=== PATIENT | female | born 1955 | race Hispanic/Latino ===

== ENCOUNTER 2020-10-14 12:56 | Inpatient (IN) | payer MEDICARE ==
[2020-10-14] MEDS ORDERED: LIP THERAPY VASELINE TP PRN (13:17)
[2020-10-14] MEDS ORDERED: MINERAL OIL/PETROLATUM, WHITE OPHTH OINT 3.5 GM OU PRN (13:17)
--- NOTE | 2020-10-14 13:17 | Emergency Department Report ---
HPI - General Time Seen by Provider: 10/14/20 12:58 - HPI HPI: This is a 65-year-old female presents to the emergency department by EMS from home after being found down on the ground, unresponsive, with some seizure-like activity. The patient's last known well time was around 5 AM when she spoke to her neighbor. The neighbor then went to check on her just prior to presentation and found her on the ground seizing. The patient was still seizing when EMS arrived. She was given 2 mg of Ativan and the seizing then stopped. The patient remained unresponsive. The patient apparently has a past medical history of a brain aneurysm with previous repair, hypertension. The patient presents with extremely elevated blood pressure. The patient does not appear to have been to this facility previously. ED Past Medical Hx - Medications Home Medications: Home Medications Medication Instructions Recorded Confirmed Last Taken Type Unobtainable 10/14/20 10/14/20 Unknown History ED Review of Systems ROS: Stated complaint: SEIZURE Other details as noted in HPI Comment: Unobtainable due to pts medical conditions Physical Exam - Physical Exam Physical Exam: GENERAL: Patient is ill-appearing and unresponsive. HENT: Normocephalic. Atraumatic. Patient has moist mucous membranes. EYES: Persistent horizontal nystagmus. Pupils are equal, round, but sluggish to respond to light. NECK: Supple. Trachea is midline. CHEST/LUNGS: Clear to auscultation. There is no respiratory distress noted. HEART/CARDIOVASCULAR: Regular. There is mild to moderate tachycardia. ABDOMEN: Abdomen is soft, nontender. Patient has normal bowel sounds. SKIN: Skin is warm and dry. NEURO: The patient is unresponsive to any verbal or painful stimuli. No gag reflex. MUSCULOSKELETAL: There is no obvious deformity. ED Course - Reevaluation(s) Reevaluation #1: 10/14/20 14:43 Lab Results 10/14/20 10/14/20 10/14/20 Range/Units 13:36 13:36 13:36 WBC 14.7 H (4.5-11.0) K/mm3 RBC 4.37 (3.65-5.03) M/mm3 Hgb 12.9 (10.1-14.3) gm/dl Hct 36.9 (30.3-42.9) % MCV 85 (79-97) fl MCH 29 (28-32) pg MCHC 35 H (30-34) % RDW 13.7 (13.2-15.2) % Plt Count 274 (140-440) K/mm3 Seg Neutrophils % [place] PT 14.0 (12.2-14.9) Sec. INR 1.07 (0.87-1.13) APTT 28.3 (24.2-36.6) Sec. Thrombin Time 17.5 (15.1-19.6) Sec. ABG pH (7.350-7.450) pH Units ABG pCO2 mm Hg ABG pO2 (80.0-90.0) mm Hg ABG HCO3 (20.0-26.0) mmol/L ABG O2 Saturation (95.0-99.0) % ABG O2 Content (0.0-44) ABG Base Excess (-2.0-3.0) mmol/L ABG Hemoglobin (12.0-16.0) gm/dl ABG Carboxyhemoglobin (0.0-5.0) % ABG Methemoglobin (0.0-1.5) % Oxyhemoglobin (95.0-99.0) % FiO2 % Sodium 131 L (137-145) mmol/L Potassium 3.8 (3.6-5.0) mmol/L Chloride 97.2 L (98-107) mmol/L Carbon Dioxide 23 (22-30) mmol/L Anion Gap 15 mmol/L BUN 13 (7-17) mg/dL Creatinine 0.9 (0.6-1.2) mg/dL Estimated GFR > 60 ml/min BUN/Creatinine Ratio 14 % Glucose 170 H (65-100) mg/dL Calcium 8.8 (8.4-10.2) mg/dL Total Bilirubin 0.40 (0.1-1.2) mg/dL AST 21 (5-40) units/L ALT 13 (7-56) units/L Alkaline Phosphatase 106 (35-129) units/L Ammonia (25-60) umol/L Total Creatine Kinase 107 (30-135) units/L CK-MB (CK-2) 3.9 (0.0-4.0) ng/mL CK-MB (CK-2) Rel Index 3.6 (0-4) Troponin T 0.015 (0.00-0.029) ng/mL Total Protein 7.3 (6.3-8.2) g/dL Albumin 3.9 (3.9-5) g/dL Albumin/Globulin Ratio 1.1 % Plasma/Serum Alcohol (0-0.07) % Antibody Screen 10/14/20 10/14/20 10/14/20 Range/Units 13:36 13:36 13:36 WBC (4.5-11.0) K/mm3 RBC (3.65-5.03) M/mm3 Hgb (10.1-14.3) gm/dl Hct (30.3-42.9) % MCV (79-97) fl MCH (28-32) pg MCHC (30-34) % RDW (13.2-15.2) % Plt Count (140-440) K/mm3 Seg Neutrophils % PT (12.2-14.9) Sec. INR (0.87-1.13) APTT (24.2-36.6) Sec. Thrombin Time (15.1-19.6) Sec. ABG pH (7.350-7.450) pH Units ABG pCO2 mm Hg ABG pO2 (80.0-90.0) mm Hg ABG HCO3 (20.0-26.0) mmol/L ABG O2 Saturation (95.0-99.0) % ABG O2 Content (0.0-44) ABG Base Excess (-2.0-3.0) mmol/L ABG Hemoglobin (12.0-16.0) gm/dl ABG Carboxyhemoglobin (0.0-5.0) % ABG Methemoglobin (0.0-1.5) % Oxyhemoglobin (95.0-99.0) % FiO2 % Sodium (137-145) mmol/L Potassium (3.6-5.0) mmol/L Chloride (98-107) mmol/L Carbon Dioxide (22-30) mmol/L Anion Gap mmol/L BUN (7-17) mg/dL Creatinine (0.6-1.2) mg/dL Estimated GFR ml/min BUN/Creatinine Ratio % Glucose (65-100) mg/dL Calcium (8.4-10.2) mg/dL Total Bilirubin (0.1-1.2) mg/dL AST (5-40) units/L ALT (7-56) units/L Alkaline Phosphatase (35-129) units/L Ammonia 41.0 (25-60) umol/L Total Creatine Kinase (30-135) units/L CK-MB (CK-2) (0.0-4.0) ng/mL CK-MB (CK-2) Rel Index (0-4) Troponin T (0.00-0.029) ng/mL Total Protein (6.3-8.2) g/dL Albumin (3.9-5) g/dL Albumin/Globulin Ratio % Plasma/Serum Alcohol < 0.01 (0-0.07) % Antibody Screen Negative 10/14/20 Range/Units 14:22 WBC (4.5-11.0) K/mm3 RBC (3.65-5.03) M/mm3 Hgb (10.1-14.3) gm/dl Hct (30.3-42.9) % MCV (79-97) fl MCH (28-32) pg MCHC (30-34) % RDW (13.2-15.2) % Plt Count (140-440) K/mm3 Seg Neutrophils % PT (12.2-14.9) Sec. INR (0.87-1.13) APTT (24.2-36.6) Sec. Thrombin Time (15.1-19.6) Sec. ABG pH 7.298 L (7.350-7.450) pH Units ABG pCO2 46.9 mm Hg ABG pO2 285.8 H (80.0-90.0) mm Hg ABG HCO3 22.5 (20.0-26.0) mmol/L ABG O2 Saturation 99.5 H (95.0-99.0) % ABG O2 Content 18.8 (0.0-44) ABG Base Excess -4.1 L (-2.0-3.0) mmol/L ABG Hemoglobin 13.2 (12.0-16.0) gm/dl ABG Carboxyhemoglobin 1.2 (0.0-5.0) % ABG Methemoglobin 0.7 (0.0-1.5) % Oxyhemoglobin 97.5 (95.0-99.0) % FiO2 100 % Sodium (137-145) mmol/L Potassium (3.6-5.0) mmol/L Chloride (98-107) mmol/L Carbon Dioxide (22-30) mmol/L Anion Gap mmol/L BUN (7-17) mg/dL Creatinine (0.6-1.2) mg/dL Estimated GFR ml/min BUN/Creatinine Ratio % Glucose (65-100) mg/dL Calcium (8.4-10.2) mg/dL Total Bilirubin (0.1-1.2) mg/dL AST (5-40) units/L ALT (7-56) units/L Alkaline Phosphatase (35-129) units/L Ammonia (25-60) umol/L Total Creatine Kinase (30-135) units/L CK-MB (CK-2) (0.0-4.0) ng/mL CK-MB (CK-2) Rel Index (0-4) Troponin T (0.00-0.029) ng/mL Total Protein (6.3-8.2) g/dL Albumin (3.9-5) g/dL Albumin/Globulin Ratio % Plasma/Serum Alcohol (0-0.07) % Antibody Screen - ABG Interpretation Ph: 7.298 PCO2: 46 PO2: 285 Bicarbonate: 22 Interpretation: respiratory acidosis, metabolic acidosis - Intubation Time Out Performed: Yes Sedative: Etomidate Mg Given: 20 Paralytic: Rocuronium Mg Given: 80 Laryngoscope: Emily Size: 4 ET Tube Size: 7.5 Tube Secured Depth (cm): 23 Tube Secured Location: lips Tube Placement Confirmation: visualized tube passing t, equal breath sounds bilat, confirmation by capnometr Patient Tolerated Procedure: well Intubation Complications: none ED Medical Decision Making - Lab Data Result diagrams: 10/14/20 13:36 10/14/20 13:36 - EKG Data -: EKG Interpreted by Fl EKG shows normal: sinus rhythm, axis (Left axis deviation), intervals, QRS complexes (Q waves to the septal leads), ST-T waves Rate: tachycardia (120 bpm) - EKG Data When compared to previous EKG there are: previous EKG unavailable Interpretation: other (Sinus tachycardia 120 bpm, left axis deviation, Q waves to the septal leads.) - Radiology Data Radiology results: report reviewed CT HEAD WITHOUT CONTRAST INDICATION / CLINICAL INFORMATION: Unresponsive patient. Seizure like activity. Respiratory failure. Code stroke. TECHNIQUE: All CT scans at this location are performed using CT dose reduction for ALARA by means of automated exposure control. COMPARISON: None available. 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 HEMORRHAGE: No evidence of intracranial hemorrhage or extra- axial fluid collection. EXTRA-AXIAL SPACES: Cortical sulci, sylvian fissures and basilar cisterns have an unremarkable appearance. VENTRICULAR SYSTEM: The ventricular system is of normal size and configuration. CEREBRAL PARENCHYMA: An area of encephalomalacia is observed involving the superior frontal gyrus and cingulate gyrus of the right frontal lobe. This likely represents the sequelae of remote infarction. MIDLINE SHIFT OR HERNIATION: There is no mass effect. CEREBELLUM / BRAINSTEM: Brainstem and cerebellum have an unremarkable appearance. MIDLINE STRUCTURES:No abnormalities of the pituitary gland or pineal region are identified. INTRACRANIAL VESSELS:No abnormalities are identified on this noncontrast head CT. ORBITS: visualized portions of the orbits have an u nremarkable appearance. SOFT TISSUES of HEAD: No significant abnormality. CALVARIUM: Evaluation of bone windows reveals no abnormalities. PARANASAL SINUSES / MASTOID AIR CELLS: Paranasal sinuses are free from inflammatory mucosal disease. Mastoid air cells are normally pneumatized. IMPRESSION: 1. St atus post aneurysm surgery with aneurysm clip in the location consistent with treatment of left posterior communicating artery aneurysm. 2. 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 3. No acute intracranial abnormalities are identified. CT CERVICAL SPINE WITHOUT CONTRAST INDICATION / CLINICAL INFORMATION: AMS, fell on floor. TECHNIQUE: Axial CT images were obtained through the cervical spine. Sagittal and coronal reformatted images were produced. All CT scans at this location are performed using CT dose reduction for ALARA by means of automated exposure control. COMPARISON: None available. FINDINGS: ALIGNMENT: Loss of the normal cervical lordosis is noted. Mild spondylolisthesis is present at the C4-3-4 level. No additional abnormalities of alignment are identified. There is no indication of traumatic subluxation. VERTEBRAE: No indication of fracture or bone destruction. DISC SPACES: Loss of disc height is noted at the C4-5, C5-6 and C6-7 levels. DEGENERATIVE CHANGES: Loss of disc height, anterior osteophyte formation and posterior osteophyte are demonstrated at the C4-5 and C5-6 levels without evidence of central canal stenosis. Facet and uncovertebral arthropathy are present at multiple levels with severe left-sided foraminal stenosis at the C3-4 and C5-6 levels. CRANIOCERVICAL JUNCTION:No significant abnormality. SPINAL CANAL: Central spinal canal is adequately maintained throughout. PARASPINAL SOFT TISSUES: No significant abnormality. ADDITIONAL FINDINGS: An endotracheal tube is present. The tip is not included on this study. LUNG APICES: Combination of pleural and parenchymal fibrosis is suspected posterior aspect of the right upper lobe and at the right lung apex. IMPRESSION: 1. No indication of fracture or traumatic subluxation. 2. Widespread cervical spondylosis. CT angio neck INDICATION / CLINICAL INFORMATION: 65 years Female; MAIN. TECHNIQUE: Thin cut axial images obtained through the head during IV bolus contrast administration. Sagittal, coronal, and 3 plane MIP reconstructions performed by the technologist. NASCET type criteria used evaluate stenoses. All CT scans at this location are performed using CT dose reduction for ALARA by means of automated exposure control. COMPARISON: None available. FINDINGS: ARCH: Normal aortic arch branching suggested. CAROTID ARTERIES: The visualized common and internal carotid arteries are widely patent. Mild atherosclerotic disease noted. VERTEBRAL ARTERIES: Right dominant vertebral system seen. No significant stenosis appreciated. ADDITIONAL FINDINGS: Some tortuosity of vessels seen, which can suggest hypertension. Patient is intubated. Critical disease seen posteriorly in the lungs. Disc space narrowing seen at C4-5, C5-6, C6-7. Multilevel facet and uncinate hypertrophy seen, resulting in moderate to marked osseous foraminal narrowing on the left at C5-6. IMPRESSION: No significant stenosis appreciated on this CTA of the neck. CT angio head INDICATION / CLINICAL INFORMATION: 65 years Female; MAIN. TECHNIQUE: Thin cut axial images obtained through the head during IV bolus contrast administration. Sagittal, coronal, and 3 plane MIP reconstructions performed by the technologist. NASCET type criteria used evaluate stenoses. Automated exposure control utilized for radiation reduction purposes. COMPARISON: None available. FINDINGS: POSTOP: Craniotomy site seen in the left parietal temporal region. Aneurysm clip is seen in the lateral aspect of the suprasellar cistern. No definitive signs of significant residual or recurrent posterior communicating artery aneurysm. INTERNAL CAROTID ARTERIES: No significant narrowing appreciated. VERTEBROBASILAR SYSTEM: Right vertebral artery is dominant when compared with the left. Minimal narrowing is seen in the most distal portion of the nondominant left vertebral artery. The basilar artery is mildly diminutive in size with no significant narrowing appreciated. Note, posterior communicating arteries helps supply blood flow to both posterior cerebral arteries. DISTAL BRANCHES: Distal branches of the anterior and posterior cerebral arteries are fairly symmetric in appearance and number. Concerning the middle cerebral arteries, the more distal branches in the superior parietal region on the left are slightly better visualized when compared with the right, although no focal stenosis or occlusion on the right is appreciated. ANEURYSM: As above. Also, there is suggestion of a focal MCA trifurcation aneurysm projecting superiorly, measuring approximately 4-5 mm in craniocaudal dimension. The aneurysm has somewhat of a tubular type appearance, which would raise the question of a fusiform type dilatation of an MCA tri furcation branch. Comparison with any prior exam would be helpful, if available. ADDITIONAL FINDINGS: Remainder of the surrounding soft tissues are grossly normal. IMPRESSION: 1. No dominant stenosis seen. Mild narrowing seen in the nondominant, distal left vertebral artery. 2. I cannot exclude the possibility of a small right MCA trifurcation aneurysm. Comparison with any prior exam would be helpful if available, including MRA of the brain. - Medical Decision Making This patient presents to the emergency department after having seizure-like activity and being unresponsive. Upon arrival the patient has a GCS of 3 without any gag reflex or response to any type of stimuli and therefore the patient was intubated for protection of airway. Chest x-ray shows appropriate placement of the ET tube without any signs of pneumonia, pneumothorax, pleural effusions. Given the acute onset of this change in mental status a code stroke was initiated. The patient is outside of the window for TPA and most likely would not be a candidate anyways with a history of brain aneurysm repair. She was seen by the telemedicine neurologist as she went to the CT scanner. CT of the head without contrast did not show any acute hemorrhage or signs of infarction or large vessel occlusion. CT of the cervical spine without contrast did not show any fracture, subluxation, or any acute process. The neurologist ordered CT angiography studies of the head and neck which resulted as negative for any obvious obstruction, occlusion, thrombosis. Patient's labs are mostly unremarkable except for a mild leukocytosis and mild hyponatremia. ABG shows some metabolic and respiratory acidosis. Patient will be admitted to the ICU for further evaluation and treatment and was accepted for admission by the hospitalist, Dr. Cline. Critical Care Time: Yes Critical care time in (mins) excluding proc time.: 35 Critical care attestation.: If time is entered above; I have spent that time in minutes in the direct care of this critically ill patient, excluding procedure time. Critical care time was spent on this patient in doing her initial evaluation, multiple reevaluations, ordering and interpretation of labs and imaging, discussion with the telemedicine neurologist and hospitalist services. Critical Care Time: 35 minutes ED Disposition Clinical Impression: Acute respiratory failure, Seizure, Hypertensive crisis, Unresponsive Disposition: DC-09 OP ADMIT IP TO THIS HOSP Is pt being admited?: Yes Condition: Critical Instructions: Hypertension (ED) Time of Disposition: 15:20
--- NOTE | 2020-10-14 13:56 | Cat Scan Report ---
CT HEAD WITHOUT CONTRAST INDICATION / CLINICAL INFORMATION: Unresponsive patient. Seizure like activity. Respiratory failure. Code stroke. TECHNIQUE: All CT scans at this location are performed using CT dose reduction for ALARA by means of automated e xposure control. COMPARISON: None available. 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 HEMORRHAGE: No evidence of intracranial hemorrhage or extra-axial fluid collection. EXTRA-AXIAL SPACES: Cortical sulci, sylvian fissures and basilar cisterns have an unremarkable appear ance. VENTRICULAR SYSTEM: The ventricular system is of normal size and configuration. CEREBRAL PARENCHYMA: An area of encephalomalacia is observed involving the superior frontal gyrus and cingulate gyrus of the right frontal lobe. This likely represents the sequelae of remote infarction. MIDLINE SHIFT OR HERNIATION: There is no mass effect. CEREBELLUM / BRAINSTEM: Brainstem and cerebellum have an unremarkable appearance. MIDLINE STRUCTURES:No abnormalities of the pituitary gland or pineal region are identified. INTRACRANIAL VESSELS:No abnormalities are identified on this noncontrast head CT. ORBITS: visualized portions of the orbits have an unremarkable appearance. SOFT TISSUES of HEAD: No significant abnormality. CALVARIUM: Evaluation of bone windows reveals no abnormalities. PARANASAL SINUSES / MASTOID AIR CELLS: Paranasal sinuses are free from inflammatory mucosal disease. Mastoid air cells are normally pneumatized. IMPRESSION: 1. Status post aneurysm surgery with aneurysm clip in the location consistent with treatment of left posterior communicating artery aneurysm. 2. 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 3. No acute intracranial abnormalities are identified. CODE STROKE: Time of Communication (RN REHABILITATION/CDT): 1245 Central standard time Licensed Practitioner Receiving Report: Dr. Mejia of the [facility] emergency d epartment. Signer Name: Morales Pena MD Signed: 10/14/2020 1:51 PM Workstation Name: [id number]
[2020-10-14 13:57] LABS: Hematocrit 36.9 % (30.3-42.9); Hemoglobin 12.9 gm/dl (10.1-14.3); Mean Corpuscular HGB Conc 35 % (30-34); Mean Corpuscular Volume 85 fl (79-97); Platelet Count 274 K/mm3 (140-440); Red Blood Count 4.37 M/mm3 (3.65-5.03); Red Cell Distribution Width 13.7 % (13.2-15.2)
[2020-10-14] MEDS ORDERED: MIDAZOLAM 100 MG in SODIUM CHLORIDE 0.9% 80 ML IV SCH (14:00)
--- NOTE | 2020-10-14 14:02 | Cat Scan Report ---
CT CERVICAL SPINE WITHOUT CONTRAST INDICATION / CLINICAL INFORMATION: AMS, fell on floor. TECHNIQUE: Axial CT images were obtained through the cervical spine. Sagittal and coronal reformatted images wer e produced. All CT scans at this location are performed using CT dose reduction for ALARA by means of automated exposure control. COMPARISON: None available. FINDINGS: ALIGNMENT: Loss of the normal cervical lordosis is noted. Mild spondylolisthesis is present at the C4 -3-4 level. No additional abnormalities of alignment are identified. There is no indication of trauma tic subluxation. VERTEBRAE: No indication of fracture or bone destruction. DISC SPACES: Loss of disc height is noted at the C4-5, C5-6 and C6-7 levels. DEGENERATIVE CHANGES: Loss of disc height, anterior osteophyte formation and posterior osteophyte are demonstrated at the C4-5 and C5-6 levels without evidence of central canal stenosis. Facet and uncov ertebral arthropathy are present at multiple levels with severe left-sided foraminal stenosis at the C3-4 and C5-6 levels. CRANIOCERVICAL JUNCTION:No significant abnormality. SPINAL CANAL: Central spinal canal is adequately maintained throughout. PARASPINAL SOFT TISSUES: No significant abnormality. ADDITIONAL FINDINGS: An endotracheal tube is present. The tip is not included on this study. LUNG APICES: Combination of pleural and parenchymal fibrosis is suspected posterior aspect of the rig ht upper lobe and at the right lung apex. IMPRESSION: 1. No indication of fracture or traumatic subluxation. 2. Widespread cervical spondylosis. Signer Name: Morales Pena MD Signed: 10/14/2020 1:57 PM Workstation Name: [id number]
[2020-10-14 14:08] LABS: INR 1.07 (0.87-1.13)
[2020-10-14 14:09] LABS: Partial Thromboplastin Time 28.3 Sec. (24.2-36.6); Thrombin Time 17.5 Sec. (15.1-19.6)
[2020-10-14 14:13] LABS: Creatine Kinase MB 3.9 ng/mL (0.0-4.0)
[2020-10-14] MEDS ORDERED: levETIRAcetam 1000 MG/NS 0.75% 1,000 MG/100 ML BAG IV ONE (14:13)
--- NOTE | 2020-10-14 14:13 | Consultation ---
History of Present Illness History of present illness: [facility] [employer] Date of Service: 10/14/2020 13:05:15 Impression: Seizure Unresponsive Comments/Sign-Out: Patient found unresponsive at home with subsequent seizure activity. Low suspicion for stroke. No LVO/basilar thrombosis on CTA. No role for alteplase as no indication of focality and her LKW > 4.5h. Suspect more primary seizure issue - consider provoked seizure from systemic process causing unresponsiveness. She has right frontal encephalomalcia which could be a focus. Metrics: Last Known Well: 10/14/2020 05:00:00 [employer] Notification Time: 10/14/2020 13:04:46 Arrival Time: 10/14/2020 12:56:00 Stamp Time: 10/14/2020 13:05:15 Time First Login Attempt: 10/14/2020 13:06:00 Video Start Time: 10/14/2020 13:06:00 Symptoms: seizure, unresponsive NIHSS Start Assessment Time: 10/14/2020 13:20:00 Patient is not a candidate for Alteplase/Activase. Patient was not deemed candidate for Alteplase/Activase thrombolytics because of Last Well Known Above 4.5 Hours. Video End Time: 10/14/2020 13:24:00 CT head showed no acute hemorrhage or acute core infarct. Lower Likelihood of Large Vessel Occlusion but Following Stat Studies are Recommended Reviewed, No Indication of Large Vessel Occlusive Thrombus, Patient is not an YEIMY Candidate. ED Physician notified of diagnostic impression and management plan on 10/14/2020 13:20:00 Our recommendations are outlined below. Recommendations: Seizure precautions Sedative infusion per ED/ICU teams Seizure precautions EEG STAT to rule out NCSE Keppra 500mg BID MRI brain wow Toxic/metabolic work up Gradual BP lowering Routine Consultation with Inhouse Neurology for Follow up Care Sign Out: Discussed with Emergency Department Provider History of Present Illness: Patient is a 65 year old Female. Patient was brought by EMS for symptoms of seizure, unresponsive Patient with a reported history of brain aneurysm. She was last reported normal at 0500 when a neighbor was on the phone with her. The neighbor went over to the patient's house after noon and found the patient on the floor unresponsive. EMS summoned and the patient was noted to be convulsing. Patient was given lorazepam 2mg IV which terminated the seizure. Patient remained unresponsive and was intubated for airway protection. No note of any focal deficit. Examination: BP(222/134), Pulse(121), Blood Glucose(137) NIHSS cannot be completed due to patient status. Patient intubated, sedated. Eyes closed. Gaze centered. Pupils 3mm round no nreactive. No response to nox stim in limbs. Patient/Family was informed the Neurology Consult would happen via TeleHealth consult by way of interactive audio and video telecommunications and consented to receiving care in this manner. Due to the immediate potential for life-threatening deterioration due to underlying acute neurologic illness, I spent 30 minutes providing critical care. This time includes time for face to face visit via telemedicine, review of medical records, imaging studies and discussion of findings with providers, the patient and/or family. Dr Tim Rodney [employer] Case [id number] Medications and Allergies Allergies Allergy/AdvReac Type Severity Reaction Status Date / Time Unable to Assess Allergy Unverified 10/14/20 13:38 Home Medications Medication Instructions Recorded Confirmed Last Taken Type Unobtainable 10/14/20 10/14/20 Unknown History Active Meds: Active Medications Hydrophilic Ointment (Vaseline Lip Therapy) 1 applic TP Q2HR PRN PRN Reason: Dry Lips Propofol (Diprivan 10 Mg/Ml) 1,000 mg in 100 mls @ 2.994 mls/hr IV TITR ABDOUL; Protocol Multi-Ingred Cream/Lotion/Oil/Oint (Artificial Tears Ophth Oint) 1 applic OU Q4HR PRN PRN Reason: Dry Eye(s) Physical Examination - Vital Signs Vital Signs: Vital Signs Pulse BP Pulse Ox 119 H 223/143 100 10/14/20 13:41 10/14/20 13:41 10/14/20 13:41 Results - Laboratory Findings CBC and BMP: 10/14/20 13:36 Abnormal Lab Findings: Abnormal Labs 10/14/20 13:36 WBC 14.7 H MCHC 35 H
[2020-10-14 14:15] LABS: Alanine Aminotransferase 13 units/L (7-56); Albumin 3.9 g/dL (3.9-5); BUN/Creatinine Ratio 14; Blood Urea Nitrogen 13 mg/dL (7-17); Calcium 8.8 mg/dL (8.4-10.2); Hemolysis Index 50
--- NOTE | 2020-10-14 14:25 | XRay Report ---
CHEST 1 VIEW INDICATION: ETT placement. COMPARISON: None FINDINGS: Support devices: The endotracheal tube terminates 3.7 cm superior to the milena Heart: Within normal limits. Lungs/Pleura: No acute air space or interstitial disease. Additional findings: None. IMPRESSION: No acute findings. Adequate assessment of the endotracheal tube. ABDOMEN 1 VIEW(S) INDICATION / CLINICAL INFORMATION: Nasogastric tube placement. COMPARISON: None available. FINDINGS: TUBES / LINES: A portion of the nasogastric tube is coiled in the pharynx. The distal tip terminates in the distal esophagus. BOWEL GAS PATTERN: No significant abnormality. FREE AIR / EXTRALUMINAL GAS: None seen. ADDITIONAL FINDINGS: No significant additional findings. IMPRESSION: Nasogastric tube as described. Consider replacement. Unremarkable abdomen otherwise. Signer Name: Lew Giles Jr, MD Signed: 10/14/2020 2:21 PM Workstation Name: [id number]
[2020-10-14 14:27] LABS: ABG Base Excess -4.1 mmol/L (-2.0-3.0); ABG HCO3 22.5 mmol/L (20.0-26.0); ABG Methemoglobin 0.7 % (0.0-1.5); ABG Oxygen Saturation 99.5 % (95.0-99.0); ABG PCO2 46.9 mm Hg; ABG PH 7.298 pH Units (7.350-7.450)
[2020-10-14 14:30] LABS: ABG PO2 285.8 mm Hg (80.0-90.0)
--- NOTE | 2020-10-14 14:30 | Cat Scan Report ---
. CT angio head INDICATION / CLINICAL INFORMATION: 65 years Female; MAIN. TECHNIQUE: Thin cut axial images obtained through the head during IV bolus contrast administration. S agittal, coronal, and 3 plane MIP reconstructions performed by the technologist. NASCET type criteria used evaluate stenoses. Automated exposure control utilized for radiation reduction purposes. COMPARISON: None available. FINDINGS: POSTOP: Craniotomy site seen in the left parietal temporal region. Aneurysm clip is seen in the later al aspect of the suprasellar cistern. No definitive signs of significant residual or recurrent car manager ior communicating artery aneurysm. INTERNAL CAROTID ARTERIES: No significant narrowing appreciated. VERTEBROBASILAR SYSTEM: Right vertebral artery is dominant when compared with the left. Minimal narro wing is seen in the most distal portion of the nondominant left vertebral artery. The basilar artery is mildly diminutive in size with no significant narrowing appreciated. Note, posterior communicating arteries helps supply blood flow to both posterior cerebral arteries. DISTAL BRANCHES: Distal branches of the anterior and posterior cerebral arteries are fairly symmetric in appearance and number. Concerning the middle cerebral arteries, the more distal branches in the superior parietal region on the left are slightly better visualized when compared with the right, although no focal stenosis or o cclusion on the right is appreciated. ANEURYSM: As above. Also, there is suggestion of a focal MCA trifurcation aneurysm projecting superiorly, measuring appro ximately 4-5 mm in craniocaudal dimension. The aneurysm has somewhat of a tubular type appearance, wh ich would raise the question of a fusiform type dilatation of an MCA trifurcation branch. Comparison with any prior exam would be helpful, if available. ADDITIONAL FINDINGS: Remainder of the surrounding soft tissues are grossly normal. IMPRESSION: 1. No dominant stenosis seen. Mild narrowing seen in the nondominant, distal left vertebral artery. 2. I cannot exclude the possibility of a small right MCA trifurcation aneurysm. Comparison with any p rior exam would be helpful if available, including MRA of the brain. Signer Name: Sam Bustos MD, III Signed: 10/14/2020 2:26 PM Workstation Name: [email or web address]
--- NOTE | 2020-10-14 14:32 | History and Physical Report ---
History of Present Illness Chief complaint: Unresponsive History of present illness: 65 YO Female with Obesity, HTN, presents to ED for evaluation. Patient is intubated and on ventilatory support at the time of my evaluation and is unable to provide history. Patient history is taken from EMS staff, ED staff. As per staff the patient was found down and unresponsive by her neighbor. Patient neighbor describe seizure-like activity. EMS was notified and upon arrival the patient was found to be in distress and actively seizing. Patient treated with 2 mg of Ativan which terminated the seizures. The patient was subsequently transported to [facility] for further evaluation and care of the aforementioned symptoms. Patient was seen and evaluated in the emergency department. All lab and imaging studies reviewed. Patient found to have symptoms consistent with status epilepticus which was evidenced by recurrent seizures in the emergency department with concomitant decrease in pulse oximetry to 84% on room air. The patient was also found to have hypertensive emergency with a blood pressure of 223/143. The patient was deemed unable to protect her airway and was intubated for airway protection. Patient also found to have acute encephalopathy. Patient admitted to ICU due to increased risk of decompensation. Critical care team consulted in ED. No prior admission for review. No medication listed at time of admission for reconciliation. Advanced care planning conducted in ED. Past History Past Medical History: hypertension, other (See HPI) Past Surgical History: Other (Brain surgery) Social history: single. denies: smoking, alcohol abuse, prescription drug abuse Family history: hypertension Medications and Allergies Allergies Allergy/AdvReac Type Severity Reaction Status Date / Time Unable to Assess Allergy Unverified 10/14/20 13:38 Home Medications Medication Instructions Recorded Confirmed Last Taken Type Unobtainable 10/14/20 10/14/20 Unknown History Active Meds: Active Medications Hydrophilic Ointment (Vaseline Lip Therapy) 1 applic TP Q2HR PRN PRN Reason: Dry Lips Propofol (Diprivan 10 Mg/Ml) 1,000 mg in 100 mls @ 2.994 mls/hr IV TITR ABDOUL; Protocol Multi-Ingred Cream/Lotion/Oil/Oint (Artificial Tears Ophth Oint) 1 applic OU Q4HR PRN PRN Reason: Dry Eye(s) Review of Systems ROS unobtainable: due to endotracheal tube, due to mental status Exam - Constitutional Vitals: Temp Pulse Resp BP Pulse Ox 119 H 223/143 100 10/14/20 13:41 10/14/20 13:41 10/14/20 13:41 General appearance: Present: mild distress - EENT Eyes: Present: PERRL ENT: hearing intact, clear oral mucosa - Neck Neck: Present: supple, normal ROM - Respiratory Respiratory effort: labored Respiratory: bilateral: diminished, rhonchi - Cardiovascular Heart Sounds: Present: S1 & S2. Absent: rub, click - Extremities Extremities: pulses symmetrical, No edema Peripheral Pulses: within normal limits - Abdominal General gastrointestinal: Present: soft, non-tender, non-distended, normal bowel sounds Female genitourinary: Present: normal - Integumentary Integumentary: Present: clear, dry - Musculoskeletal Musculoskeletal: generalized weakness - Psychiatric Psychiatric: no appropriate mood/affect, no intact judgment & insight, no memory intact - Neurologic Neurologic: CNII-XII intact, no focal deficits, moves all extremities, no gait normal HEART Score - HEART Score Troponin: Troponin T 0.015 ng/mL (0.00-0.029) 10/14/20 13:36 Results - Labs CBC & Chem 7: 10/14/20 13:36 10/14/20 13:36 Labs: Abnormal lab results 10/14/20 10/14/20 10/14/20 Range/Units 13:36 13:36 14:22 WBC 14.7 H (4.5-11.0) K/mm3 MCHC 35 H (30-34) % ABG pH 7.298 L (7.350-7.450) pH Units ABG pO2 285.8 H (80.0-90.0) mm Hg ABG O2 Saturation 99.5 H (95.0-99.0) % ABG Base Excess -4.1 L (-2.0-3.0) mmol/L Sodium 131 L (137-145) mmol/L Chloride 97.2 L (98-107) mmol/L Glucose 170 H (65-100) mg/dL Assessment and Plan - Patient Problems (1) Acute respiratory failure Current Visit: Yes Status: Acute Qualifiers: Respiratory failure complication: hypoxia Qualified Code(s): J96.01 - Acute respiratory failure with hypoxia Plan to address problem: Patient intubated and on ventilatory support, daily spontaneous breathing trials, sedation holiday, wean vent as tolerated, critical care team consulted. The high probability of a clinically significant, sudden or life threatening deterioration of the [cardiac, pulmonary, renal] system(s) required my full and direct attention, intervention and personal management. The aggregate critical care time was [65] minutes. This time is in addition to time spent performing reported procedures but includes the following: [x] Data Review and interpretation [x] Patient assessment and monitoring of vital signs [x] Documentation [x] Medication orders and management (2) Status epilepticus Current Visit: Yes Status: Acute Plan to address problem: Supportive care. Seizure precautions, Keppra 1 g IV in the emergency department, Keppra 500 mg twice daily. Teleneurology consulted. (3) Hypertensive emergency Current Visit: Yes Status: Acute Plan to address problem: Monitor blood pressure every shift, continue IV hydralazine, (4) Acute encephalopathy Current Visit: Yes Status: Acute Plan to address problem: CT head, neuro check, seizure precautions, aspiration precautions, (5) Leukocytosis Current Visit: Yes Status: Acute Plan to address problem: Chest x-ray, CBC, urinalysis, empiric IV antibiotic therapy x1 dose, repeat CBC in a.m. (6) DVT prophylaxis Current Visit: Yes Status: Acute Plan to address problem: SCD to bilateral lower extremities while in bed, prophylactic anticoagulation (7) Advance care planning Current Visit: Yes Status: Acute Plan to address problem: Disease education conducted, patient is full code, prognosis discussed, +30 minutes.
--- NOTE | 2020-10-14 14:42 | Cat Scan Report ---
CT angio neck INDICATION / CLINICAL INFORMATION: 65 years Female; MAIN. TECHNIQUE: Thin cut axial images obtained through the head during IV bolus contrast administration. S agittal, coronal, and 3 plane MIP reconstructions performed by the technologist. NASCET type criteria used evaluate stenoses. All CT scans at this location are performed using CT dose reduction for ALAR A by means of automated exposure control. COMPARISON: None available. FINDINGS: ARCH: Normal aortic arch branching suggested. CAROTID ARTERIES: The visualized common and internal carotid arteries are widely patent. Mild atheros clerotic disease noted. VERTEBRAL ARTERIES: Right dominant vertebral system seen. No significant stenosis appreciated. ADDITIONAL FINDINGS: Some tortuosity of vessels seen, which can suggest hypertension. Patient is intubated. Critical disease seen posteriorly in the lungs. Disc space narrowing seen at C4-5, C5-6, C6-7. Multilevel facet and uncinate hypertrophy seen, result ing in moderate to marked osseous foraminal narrowing on the left at C5-6. IMPRESSION: No significant stenosis appreciated on this CTA of the neck. Signer Name: Sam Bustos MD, III Signed: 10/14/2020 2:37 PM Workstation Name: [email or web address] [id number]
[2020-10-14 14:58] LABS: Band Neutrophils # (Manual) 0.4 K/mm3; Total Cells Counted 100
[2020-10-14 14:59] LABS: Basophils % (Manual) 0 % (0.0-1.8)
[2020-10-14 15:01] LABS: Ovalocytes Few; Platelet Estimate Consistent w Auto
--- NOTE | 2020-10-14 15:19 | Consultation ---
History of Present Illness Consult date: 10/14/20 Requesting physician: ALONSO LAND Reason for consult: other (Acute Hypoxemic Respiratory Failure) History of present illness: PULMONARY/CCM CONSULT NOTE (Full dictation # [id number]) Please see dictated notes for full details Medications and Allergies Allergies Allergy/AdvReac Type Severity Reaction Status Date / Time Unable to Assess Allergy Unverified 10/14/20 13:38 Home Medications Medication Instructions Recorded Confirmed Last Taken Type Unobtainable 10/14/20 10/14/20 Unknown History Active Meds: Active Medications Hydrophilic Ointment (Vaseline Lip Therapy) 1 applic TP Q2HR PRN PRN Reason: Dry Lips Propofol (Diprivan 10 Mg/Ml) 1,000 mg in 100 mls @ 2.994 mls/hr IV TITR ABDOUL; Protocol Last Titration: 10/14/20 15:17 Dose: 10 mcg/kg/min, 5.987 mls/hr Documented by: Levetiracetam 500 mg/ Dextrose 105 mls @ 400 mls/hr IV Q12HR ABDOUL Ceftriaxone Sodium (Rocephin/Ns 2 Gm/100 Ml) 2 gm in 100 mls @ 200 mls/hr IV ONCE ONE; Protocol Stop: 10/14/20 15:21 Multi-Ingred Cream/Lotion/Oil/Oint (Artificial Tears Ophth Oint) 1 applic OU Q4HR PRN PRN Reason: Dry Eye(s) Sodium Chloride (Sodium Chloride Flush Syringe 10 Ml) 10 ml IV BID ABDOUL Sodium Chloride (Sodium Chloride Flush Syringe 10 Ml) 10 ml IV PRN PRN PRN Reason: LINE FLUSH Physical Examination Vital signs: Vital Signs Pulse BP Pulse Ox 119 H 223/143 100 10/14/20 13:41 10/14/20 13:41 10/14/20 13:41 Results - Laboratory Findings CBC and BMP: 10/14/20 13:36 10/14/20 13:36 ABG ABG pH 7.298 pH Units (7.350-7.450) L 10/14/20 14:22 ABG pCO2 46.9 mm Hg 10/14/20 14:22 ABG pO2 285.8 mm Hg (80.0-90.0) H 10/14/20 14:22 ABG O2 Saturation 99.5 % (95.0-99.0) H 10/14/20 14:22 PT/INR, D-dimer PT 14.0 Sec. (12.2-14.9) 10/14/20 13:36 INR 1.07 (0.87-1.13) 10/14/20 13:36 Abnormal lab findings: Abnormal Labs 10/14/20 10/14/20 10/14/20 13:36 13:36 14:22 WBC 14.7 H MCHC 35 H Seg Neuts % (Manual) 89.0 H Lymphocytes % (Manual) 4.0 L Seg Neutrophils # Man 13.1 H Lymphocytes # (Manual) 0.6 L ABG pH 7.298 L ABG pO2 285.8 H ABG O2 Saturation 99.5 H ABG Base Excess -4.1 L Sodium 131 L Chloride 97.2 L Glucose 170 H
[2020-10-14] MEDS ORDERED: cefTRIAXone/NS 2 GM/100 ML 2 GM/100 ML BAG IV ONE ×2 (15:30→15:39)
[2020-10-14] MEDS ORDERED: ROCURONIUM 50 MG/5 ML INJ IV ONE (15:47)
[2020-10-14] MEDS ORDERED: ETOMIDATE 20 MG/10 ML INJ IV ONE (15:47)
[2020-10-14 16:09] LABS: Bilirubin,Urine NEG (Negative); Blood,Urine SM (Negative); Color,Urine Straw (Yellow); Mucus,Urine FEW /HPF; Urobilinogen,Urine < 2.0 mg/dL (<2.0)
[2020-10-14 16:12] LABS: Amphetamine Screen,Urine Negative; Benzodiazepines Screen,Urine Negative; Cannabinoid Screen,Urine Negative; Cocaine Screen,Urine Negative; Methadone Screen,Urine Negative; Opiate Screen,Urine Negative
[2020-10-14] MEDS ORDERED: fentaNYL DRIP Premix 2,000 MCG/100 ML BAG IV ONE (17:05)
[2020-10-14] MEDS ORDERED: fentaNYL 100 MCG/2 ML INJ ONE (17:06)
[2020-10-14 17:19] LABS: ABG Base Excess -1.9 mmol/L (-2.0-3.0); ABG HCO3 23.2 mmol/L (20.0-26.0); ABG Methemoglobin 0.6 % (0.0-1.5); ABG Oxygen Saturation 99.2 % (95.0-99.0); ABG PCO2 40.4 mm Hg; ABG PH 7.377 pH Units (7.350-7.450)
[2020-10-14] MEDS: fentaNYL DRIP Premix 2,000 MCG/100 ML BAG IV SCH (17:52)
[2020-10-14] MEDS ORDERED: ALBUTEROL 2.5 MG/3 ML NEBU IH PRN (18:24)
[2020-10-14] MEDS ORDERED: HEPARIN 5,000 UNIT/1 ML VIAL ONE (23:41)
[2020-10-14] MEDS ORDERED: FAMOTIDINE 20 MG/2 ML INJ IV ONE (23:41)
[2020-10-14] MEDS: FAMOTIDINE 20 MG/2 ML INJ IV SCH (23:53)
[2020-10-14] MEDS: levETIRAcetam 500 MG in DEXTROSE 5% IN WATER 100 ML IV SCH (23:53)
[2020-10-14] MEDS: HEPARIN 5,000 UNIT/1 ML VIAL SUB-Q SCH (23:54)
[2020-10-15 03:52] LABS: ABG Base Excess 0.1 mmol/L (-2.0-3.0); ABG HCO3 21.5 mmol/L (20.0-26.0); ABG Methemoglobin 0.5 % (0.0-1.5); ABG Oxygen Saturation 98.4 % (95.0-99.0); ABG PH 7.536 pH Units (7.350-7.450); ABG PO2 110.2 mm Hg (80.0-90.0)
--- NOTE | 2020-10-15 05:14 | XRay Report ---
CHEST 1 VIEW 10/15/2020 4:06 AM INDICATION / CLINICAL INFORMATION: follow up respiratory failure. COMPARISON: 10/14/2020 FINDINGS: SUPPORT DEVICES: ET tube and NG tube appear well-positioned. HEART / MEDIASTINUM: No significant abnormality. LUNGS / PLEURA: No significant pulmonary or pleural abnormality. No pneumothorax. ADDITIONAL FINDINGS: No significant additional findings. IMPRESSION: 1. No acute findings. Signer Name: Dio Keenan MD Signed: 10/15/2020 5:10 AM Workstation Name: [email or web address]
[2020-10-15 05:22] LABS: Basophils % (Auto) 0.3 % (0.0-1.8); Eosinophils % (Auto) 0.2 % (0.0-4.3); Hematocrit 33.7 % (30.3-42.9); Hemoglobin 12.1 gm/dl (10.1-14.3); Lymphocytes % (Auto) 9.6 % (13.4-35.0); Mean Corpuscular HGB Conc 36 % (30-34); Mean Corpuscular Volume 83 fl (79-97); Monocytes # (Auto) 1.1 K/mm3 (0.0-0.8); Monocytes % (Auto) 10.1 % (0.0-7.3); Platelet Count 252 K/mm3 (140-440); Red Blood Count 4.05 M/mm3 (3.65-5.03); Red Cell Distribution Width 13.8 % (13.2-15.2)
[2020-10-15 05:30] LABS: BUN/Creatinine Ratio 16; Blood Urea Nitrogen 11 mg/dL (7-17); Calcium 8.8 mg/dL (8.4-10.2); Hemolysis Index 5
[2020-10-15] MEDS ORDERED: fentaNYL DRIP Premix 2,000 MCG/100 ML BAG IV ONE ×2 (06:48→18:47)
[2020-10-15] MEDS: fentaNYL DRIP Premix 2,000 MCG/100 ML BAG IV SCH ×2 (06:53→23:32)
[2020-10-15] MEDS ORDERED: SODIUM BICARB 8.4% 50 MEQ/50 ML SYRINGE IV ONE (09:50)
[2020-10-15] MEDS ORDERED: HEPARIN 5,000 UNIT/1 ML VIAL ONE (11:01)
[2020-10-15] MEDS ORDERED: levETIRAcetam 500 MG/5 ML ORAL LIQD ONE (11:02)
[2020-10-15] MEDS ORDERED: FAMOTIDINE 20 MG/2 ML INJ IV ONE (11:03)
[2020-10-15] MEDS: HEPARIN 5,000 UNIT/1 ML VIAL SUB-Q SCH ×2 (11:14→23:33)
[2020-10-15] MEDS: FAMOTIDINE 20 MG/2 ML INJ IV SCH ×2 (11:14→23:33)
[2020-10-15] MEDS: levETIRAcetam 500 MG in DEXTROSE 5% IN WATER 100 ML IV SCH (11:48)
--- NOTE | 2020-10-15 15:27 | Consultation ---
PULMONARY CRITICAL CARE CONSULT NOTE CONSULTING PHYSICIAN: Dr. Cline. REASON FOR CONSULTATION: Acute hypoxemic respiratory failure, on mechanical ventilatory support, status epilepticus. CHIEF COMPLAINT AND HISTORY OF PRESENT ILLNESS: The patient is a now 65-year-old female with past medical history as far as I can tell significant for hypertension and brain surgery in the past. She was apparently brought into the Emergency Room after being found down unresponsive at home with some seizure-like activity, last known well time was about 5:00 a.m. this morning when she had spoken with the neighbor. When the neighbor went back to look in her, he found her seizing. Emergency medical services arrived and found her with seizures. She was given some Ativan. She was brought into the Emergency Room unresponsive, required rapid sequence intubation. She presented with extremely elevated blood pressures at that time with the systolic blood pressures of 223, diastolic of 143. Post-intubation, we are asked to assist with management. When I stopped by to see her, she was resting in bed. There was no active seizure activity. She was on a propofol drip going at about 50 mcg per kilogram per minute and she was not responsive to me, but was moving her extremities and her head intermittently, again no overt seizure activity. Now with regard to tobacco use/abuse history that is unknown. The above is as much of the history of presentation as I have. PAST MEDICAL HISTORY: History of hypertension according to the records, history of obesity and a history of the brain surgery. PAST SURGICAL HISTORY: She has had some type of brain surgery. MEDICATIONS: She was on at the time I stopped by to see her were reviewed, pertinent medications include the following: Fentanyl drip had been ordered at 1 mcg/kg per hour, heparin 5000 units subcutaneous q.12, hydralazine 10 mg IV q.6 hours p.r.n. elevated blood pressures, Keppra 500 mg IV q.12 hours, Propofol drip was going at 50 mcg per kilogram per minute. She had received Rocephin 2 grams IV earlier and on a loading dose of Keppra. ALLERGIES: Unknown. DIET: Morbidly obese, acute weight loss or gain history is unknown. FAMILY AND SOCIAL HISTORY: According to the records, she is described as single. There is a family history of hypertension. It seems she might have denied, it is really unclear what her alcohol, tobacco, or illicit drug use or abuse history is. Family history is otherwise unknown. REVIEW OF SYSTEMS: Unobtainable secondary the patient's mental condition. Since she has been here, no gross hematochezia or melena. No gross hematuria. She has an NG tube with blood-tinged effluent at this time, that is just post NG tube insertion. She had seizures on presentation. Review of systems is otherwise unobtainable. PHYSICAL EXAMINATION: VITAL SIGNS: At presentation, she was afebrile, pulse 119, respiratory rate 20, blood pressure 223/143, O2 sats 100%, inspired oxygen concentration at that time was not recorded. When I stopped by to see her, O2 sats were 100% that was on the assist control mode of ventilation, tidal volumes 450, rate of 20, PEEP of 6, and FiO2 down to 30%. GENERAL: Again, elderly looking obese female, normocephalic, on the mechanical ventilator riding the set rate of 20. HEAD, EYES, EARS, NOSE AND THROAT: Anicteric. No conjunctival erythema. Oropharynx was moist. Endotracheal tube was taped around 23-24 cm at the lips. No gross jugular venous distention. She does have a large neck circumference. No thyromegaly. NECK: Grossly, there were no palpable lymph nodes in the supraclavicular or submandibular lymph node chains. LUNGS: Auscultation of both lung wheat are really unremarkable, apart from perhaps diminished bilateral air movement, lungs were clear bilaterally. HEART: Heart sounds 1 and 2 are heard. They were regular in rate and rhythm at the time of my evaluation without overt rubs or murmurs. ABDOMEN: Soft, full, protuberant. Bowel sounds are positive, nontender, no palpable hepatosplenomegaly. EXTREMITIES: Without overt digital clubbing or cyanosis, no pedal edema. Pedal pulses are 2+ times bilaterally. NEUROLOGIC: She moved all extremities spontaneously. Her pupils are equal, round, about 2-3 mm, sluggishly reactive to light. No nystagmus. Extraocular muscle movements could not be assessed otherwise. No overt flaccidity or spasticity. SKIN: Normal turgor in the areas examined without overt cellulitis or rash. Please see the wound care nurse's notes for full description of her skin. PSYCHIATRIC: Mood and affect could not be assessed. LABORATORY DATA: From my review are as follows: Admission white cell count 14,700, hemoglobin 12.9, hematocrit 36.9, platelet count 274. No significant bandemia. INR within normal limits. Arterial blood gas at presentation showed a pH of 7.30, pCO2 of 47, pO2 of 286 that was on the above-mentioned vent settings on 100%, pH is now 7.38, pO2 was 185 at 50% FiO2. Serum sodium 131, potassium 3.8, chloride 97, bicarbonate 23, BUN 13, creatinine 0.9, glucose 170. Liver function test is within normal limits. Ammonia level is within normal limits. Urinalysis was negative for nitrites and leukocyte esterase and really bland. Urine drug screen was negative. Alcohol level was nondetectable. Blood cultures, no cultures yet. She had a CT scan of her head that was read as status post aneurysm surgery with clip in the location consistent with treatment of left posterior communicating artery, encephalomalacia, but no acute intracranial abnormality. A CT scan of the C-spine was also done. I have reviewed the report, no acute fracture or traumatic subluxation. CT angios were done also of the head and neck. No significant stenosis on the CTA of the neck. No dominance stenosis on the CTA of the brain. A chest x-ray was done. Aorta is uncoiled. There is borderline cardiomegaly, mild perihilar infiltrate. ET tube tip is at the level of the aortic knob. No gross pneumothorax, no gross bony fracture. ASSESSMENT: 1. Acute hypoxemic and hypercapnic respiratory failure. 2. Acute encephalopathy, presumably secondary to #3. 3. Status epilepticus. 4. Hypertensive emergency at presentation. 5. History of a brain aneurysm repair. 6. Obesity. 7. History of hypertension. 8. Leukocytosis. 9. Mild hyponatremia. 10. Hyperglycemia. PLAN: We will keep her on full mechanical ventilatory support overnight. Ventilator-associated pneumonia bundle has been instituted. Bronchodilators will be scheduled with routine pulmonary hygiene per respiratory therapy. Oxygen will be weaned to keep sats greater than or equal to about 92%. Aspiration precautions included. Hopefully, her mental status improves, we will continue her on Keppra. Neurology evaluation has been placed and EEG has been ordered. We will follow the EEG. Also, she has an MRI pending. Enteral nutrition will be the feeding modality of choice. NG tube position will be confirmed with a KUB for now. We will keep the NG tube to low intermittent suction. I will keep an eye on hemoglobin levels to ensure that she is not actually having a GI bleed, but I think this is post-traumatic insertion of an NG tube. Electrolytes were monitored. Inputs and outputs are monitored and corrected as necessary. Oxygen again as mentioned will be weaned to keep sats greater than 92%. She is appropriately on DVT prophylaxis. She is going to be placed on GI prophylaxis. Flu and pneumonia vaccination will be addressed per protocol. Other care will be per consultants and based on the results of her investigations during this admission. Thank you very much for the consult. We will follow along and make further recommendations as picture progresses/becomes clearer. She is critically ill on life-sustaining interventions including mechanical ventilatory support at very high risk of from cardiopulmonary and neurologic system dysfunction. At this point, I have spent about 35-40 minutes of critical care time without overlap and excluding any procedural time that may be necessary. JOB# [id number] [facility]
--- NOTE | 2020-10-15 16:24 | Progress Note ---
Assessment and Plan The high probability of a clinically significant, sudden or life threatening deterioration of the [cardiac, pulmonary, renal] system(s) required my full and direct attention, intervention and personal management. The aggregate critical care time was [40] minutes. This time is in addition to time spent performing reported procedures but includes the following: [x] Data Review and interpretation [x] Patient assessment and monitoring of vital signs [x] Documentation [x] Medication orders and management (1) Acute respiratory failure Current Visit: Yes Status: Acute Qualifiers: Respiratory failure complication: hypoxia Qualified Code(s): J96.01 - Acute respiratory failure with hypoxia Plan to address problem: Patient intubated and on ventilatory support, daily spontaneous breathing trials, sedation holiday, wean vent as tolerated, critical care team consulted. (2) Status epilepticus Current Visit: Yes Status: Acute Plan to address problem: Supportive care. Seizure precautions, Keppra 1 g IV in the emergency department, Keppra 500 mg twice daily. Teleneurology consulted. (3) Hypertensive emergency Current Visit: Yes Status: Acute Plan to address problem: Monitor blood pressure every shift, continue IV hydralazine, (4) Acute encephalopathy Current Visit: Yes Status: Acute Plan to address problem: CT head, neuro check, seizure precautions, aspiration precautions, (5) Leukocytosis Current Visit: Yes Status: Acute Plan to address problem: Chest x-ray, CBC, urinalysis, empiric IV antibiotic therapy x1 dose, repeat CBC in a.m. (6) DVT prophylaxis Current Visit: Yes Status: Acute Plan to address problem: SCD to bilateral lower extremities while in bed, prophylactic anticoagulation (7) Advance care planning Current Visit: Yes Status: Acute Plan to address problem: Disease education conducted, patient is full code, prognosis discussed, +30 minutes. Subjective Date of service: 10/15/20 Principal diagnosis: Resp failure,Seizures Interval history: 65 YO Female with Obesity, HTN, presents to ED for evaluation. Patient is intubated and on ventilatory support at the time of my evaluation and is unable to provide history. Patient history is taken from EMS staff, ED staff. As per staff the patient was found down and unresponsive by her neighbor. Patient neighbor describe seizure-like activity. EMS was notified and upon arrival the patient was found to be in distress and actively seizing. Patient treated with 2 mg of Ativan which terminated the seizures. The patient was subsequently transported to [facility] for further evaluation and care of the aforementioned symptoms. Patient was seen and evaluated in the emergency department. All lab and imaging studies reviewed. Patient found to have symptoms consistent with status epilepticus which was evidenced by recurrent seizures in the emergency department with concomitant decrease in pulse oximetry to 84% on room air. The patient was also found to have hypertensive emergency with a blood pressure of 223/143. The patient was deemed unable to protect her airway and was intubated for airway protection. Patient also found to have acute encephalopathy. Patient admitted to ICU due to increased risk of decompensation. Critical care team consulted in ED. No prior admission for review. No medication listed at time of admission for reconciliation. Advanced care planning conducted in ED. Day # 2 Seizures continue 3d specialist consult appreciated Objective - Constitutional Vitals: Vital Signs - 12hr 10/15/20 10/15/20 10/15/20 04:30 04:45 05:00 Pulse Rate 56 L 57 L 57 L Respiratory 20 20 20 Rate Blood Pressure 103/64 111/69 116/71 O2 Sat by Pulse 100 100 100 Oximetry 10/15/20 10/15/20 10/15/20 05:15 05:30 05:45 Pulse Rate 56 L 57 L 56 L Respiratory 20 20 20 Rate Blood Pressure 104/65 106/67 108/69 O2 Sat by Pulse 99 100 100 Oximetry 10/15/20 10/15/20 10/15/20 06:00 06:15 06:30 Pulse Rate 54 L 55 L 56 L Respiratory 20 20 20 Rate Blood Pressure 109/69 108/70 114/73 O2 Sat by Pulse 100 100 100 Oximetry 10/15/20 10/15/20 10/15/20 06:45 07:00 07:15 Pulse Rate 58 L 58 L 56 L Respiratory 20 20 20 Rate Blood Pressure 128/79 131/83 140/84 O2 Sat by Pulse 100 100 100 Oximetry 10/15/20 10/15/20 10/15/20 07:30 07:45 08:00 Pulse Rate 55 L 83 55 L Respiratory 20 20 Rate Blood Pressure 128/77 128/77 108/69 O2 Sat by Pulse 100 99 99 Oximetry 10/15/20 10/15/20 10/15/20 08:01 08:15 08:31 Pulse Rate 57 L 54 L 89 Respiratory 20 20 20 Rate Blood Pressure 108/69 118/71 108/69 O2 Sat by Pulse 99 99 95 Oximetry 10/15/20 10/15/20 10/15/20 08:45 09:00 09:15 Pulse Rate 75 78 72 Respiratory 20 20 20 Rate Blood Pressure 134/77 144/87 152/93 O2 Sat by Pulse 99 97 97 Oximetry 10/15/20 10/15/20 10/15/20 09:31 09:45 10:00 Pulse Rate 73 80 69 Respiratory 20 20 20 Rate Blood Pressure 147/83 146/88 146/84 O2 Sat by Pulse 97 95 97 Oximetry 10/15/20 10/15/20 10/15/20 10:15 10:31 10:45 Pulse Rate 91 H 71 65 Respiratory 15 20 20 Rate Blood Pressure 147/93 118/69 142/80 O2 Sat by Pulse 97 95 97 Oximetry 10/15/20 10/15/20 10/15/20 11:00 11:15 11:30 Pulse Rate 63 62 58 L Respiratory 21 20 20 Rate Blood Pressure 131/81 94/56 107/65 O2 Sat by Pulse 96 98 98 Oximetry 10/15/20 10/15/20 10/15/20 11:45 12:00 12:15 Pulse Rate 55 L 65 53 L Respiratory 20 20 20 Rate Blood Pressure 108/62 124/68 116/66 O2 Sat by Pulse 98 99 98 Oximetry 10/15/20 10/15/20 10/15/20 12:30 12:45 13:00 Pulse Rate 52 L 58 L 72 Respiratory 20 8 L 9 L Rate Blood Pressure 109/65 127/76 108/64 O2 Sat by Pulse 99 97 70 L Oximetry 10/15/20 10/15/20 10/15/20 13:15 13:30 13:45 Pulse Rate 80 79 76 Respiratory 12 10 L 12 Rate Blood Pressure 108/64 149/85 147/88 O2 Sat by Pulse 94 98 98 Oximetry 10/15/20 10/15/20 10/15/20 14:00 14:15 14:30 Pulse Rate 77 88 76 Respiratory 11 L 15 14 Rate Blood Pressure 146/81 146/81 170/86 O2 Sat by Pulse 99 99 98 Oximetry 10/15/20 10/15/20 10/15/20 14:45 15:00 15:15 Pulse Rate 71 75 74 Respiratory 11 L 15 13 Rate Blood Pressure 148/79 148/79 152/80 O2 Sat by Pulse 98 98 98 Oximetry General appearance: Present: mild distress, well-nourished - EENT Eyes: PERRL, EOM intact ENT: hearing intact, clear oral mucosa Ears: bilateral: normal - Neck Neck: supple, normal ROM - Respiratory Respiratory effort: normal Respiratory: bilateral: CTA - Breasts Breasts: normal - Cardiovascular Heart rate: 78 Rhythm: regular Heart Sounds: Present: S1 & S2. Absent: gallop, rub Extremities: pulses intact, No edema, normal color, Full ROM - Gastrointestinal General gastrointestinal: Present: soft, non-tender, non-distended, normal bowel sounds - Genitourinary Female genitourinary: normal - Integumentary Integumentary: clear, warm, dry - Musculoskeletal Musculoskeletal: generalized weakness - Neurologic Neurologic: moves all extremities - Labs CBC & Chem 7: 10/30/20 07:53 10/30/20 07:53 Labs: Abnormal lab results 10/14/20 10/15/20 10/15/20 Range/Units 17:09 03:35 04:33 MCHC 36 H (30-34) % Lymph % (Auto) 9.6 L (13.4-35.0) % O'Brien % (Auto) 10.1 H (0.0-7.3) % Lymph # (Auto) 1.0 L (1.2-5.4) K/mm3 O'Brien # (Auto) 1.1 H (0.0-0.8) K/mm3 Seg Neutrophils % 79.8 H (40.0-70.0) % Seg Neutrophils # 8.4 H (1.8-7.7) K/mm3 ABG pH 7.536 H (7.350-7.450) pH Units POC ABG pCO2 (32.0-48.0) mmHg POC ABG pO2 (83-108) mmHg ABG pO2 185.0 H 110.2 H (80.0-90.0) mm Hg ABG O2 Saturation 99.2 H (95.0-99.0) % ABG Oxyhemoglobin (94-98) ABG Sodium (136.0-145.0) mmol/L ABG Glucose (65-95) mg/dL Glucose (65-100) mg/dL Arterial Blood Glucose (65-95) mg/dL 10/15/20 10/15/20 Range/Units 04:33 13:12 MCHC (30-34) % Lymph % (Auto) (13.4-35.0) % O'Brien % (Auto) (0.0-7.3) % Lymph # (Auto) (1.2-5.4) K/mm3 O'Brien # (Auto) (0.0-0.8) K/mm3 Seg Neutrophils % (40.0-70.0) % Seg Neutrophils # (1.8-7.7) K/mm3 ABG pH 7.297 L (7.350-7.450) pH Units POC ABG pCO2 51.0 H (32.0-48.0) mmHg POC ABG pO2 56.7 L (83-108) mmHg ABG pO2 (80.0-90.0) mm Hg ABG O2 Saturation (95.0-99.0) % ABG Oxyhemoglobin 84.6 L (94-98) ABG Sodium 134.4 L (136.0-145.0) mmol/L ABG Glucose 118 H (65-95) mg/dL Glucose 120 H (65-100) mg/dL Arterial Blood Glucose 118 H (65-95) mg/dL HEART Score - HEART Score Troponin: Troponin T 0.015 ng/mL (0.00-0.029) 10/14/20 13:36
--- NOTE | 2020-10-15 18:52 | Progress Note ---
Assessment and Plan Acute hypoxemic and hypercapnic respiratory failure. Acute encephalopathy (Toxic / metabolic). Status epilepticus. Hypertensive emergency at presentation. History of a brain aneurysm repair. Obesity. History of hypertension. Leukocytosis. Mild hyponatremia. Hyperglycemia. - hold Propofol during SBT's - begoin Seroquel 200 mg p.o. bid to spare IV sedatives - continue to wean supplemental oxygen for target O2 sat's > 92% acutely - Daily SAT and SBT assessment as tolerated - VAP bundle addressed - continue lung protective strategies - continue bronchodilators with pulmonary hygiene per RT - wean per pulmonary driven protocols otherwise - sedation prn for target RASS -1 to -2 - begin enteral nutritional support at goal rate as tolerated - empiric AB's coverage per ID rec's otherwise - accuchecks with glycemic control per SSI (While critically ill target blood glucose of 140-180 mg/dL; avoid hypoglycemia) - avoid nephrotoxins, renally dose all medications - continue Keppra as AED - continue to avoid benzodiazepine's, reduce the possibility of delirium - prn analgesia per CPOT score - Maintenance of sleep-wake cycle, avoid delirium - continue to avoid benzodiazepine's, reduce the possibility of delirium - aspiration precautions - G.I. & VTE prophylaxis - PT/OT/ROM exercises - continue mobility protocols for pressure ulcer prophylaxis - Monitor hemodynamics closely - continue other care per attending / other consultants - discharge planning ongoing concurrently .... Re-evaluate in am & prn CONDITION: CRITICAL PROGNOSIS: GUARDED CODE STATUS: FULL CODE The high probability of a clinically significant, sudden or life-threatening deterioration of the [respiratory, cardiovascular & neurologic] system(s) required my full and direct attention, intervention and personal management. The aggregate critical care time was [34] minutes without overlap. Time includes spent on; [x] Data Review and interpretation [x] Patient assessment and monitoring of vital signs [x] Documentation [x] Medication orders and management Subjective Date of service: 10/15/20 Principal diagnosis: Ac hypoxemic & hypercapnic resp failure; Status epilepticus; HTNsive emerge Interval history: Patient is seen today for: Ac hypoxemic and hypercapnic resp failure; Ac. encephalopathy; Status epilepticus; HTNsive emergency; History of a brain aneurysm repair; Obesity Seen and examined at bedside; 24hour events reviewed; nursing and respiratory care staff consulted; no adverse overnight events reported to me; resting peacefully in bed; on PSV trial and tolerating well; remains on Propofol & fentanyl drips; agitated during sedation vacations; No emesis or overt aspiration Objective Vital Signs - 12hr 10/15/20 10/15/20 10/15/20 07:00 07:15 07:30 Pulse Rate 58 L 56 L 55 L Respiratory 20 20 20 Rate Blood Pressure 131/83 140/84 128/77 O2 Sat by Pulse 100 100 100 Oximetry 10/15/20 10/15/20 10/15/20 07:45 08:00 08:01 Pulse Rate 83 55 L 57 L Respiratory 20 20 Rate Blood Pressure 128/77 108/69 108/69 O2 Sat by Pulse 99 99 99 Oximetry 10/15/20 10/15/20 10/15/20 08:15 08:31 08:45 Pulse Rate 54 L 89 75 Respiratory 20 20 20 Rate Blood Pressure 118/71 108/69 134/77 O2 Sat by Pulse 99 95 99 Oximetry 10/15/20 10/15/20 10/15/20 09:00 09:15 09:31 Pulse Rate 78 72 73 Respiratory 20 20 20 Rate Blood Pressure 144/87 152/93 147/83 O2 Sat by Pulse 97 97 97 Oximetry 10/15/20 10/15/20 10/15/20 09:45 10:00 10:15 Pulse Rate 80 69 91 H Respiratory 20 20 15 Rate Blood Pressure 146/88 146/84 147/93 O2 Sat by Pulse 95 97 97 Oximetry 10/15/20 10/15/20 10/15/20 10:31 10:45 11:00 Pulse Rate 71 65 63 Respiratory 20 20 21 Rate Blood Pressure 118/69 142/80 131/81 O2 Sat by Pulse 95 97 96 Oximetry 10/15/20 10/15/20 10/15/20 11:15 11:30 11:45 Pulse Rate 62 58 L 55 L Respiratory 20 20 20 Rate Blood Pressure 94/56 107/65 108/62 O2 Sat by Pulse 98 98 98 Oximetry 10/15/20 10/15/20 10/15/20 12:00 12:15 12:30 Pulse Rate 65 53 L 52 L Respiratory 20 20 20 Rate Blood Pressure 124/68 116/66 109/65 O2 Sat by Pulse 99 98 99 Oximetry 10/15/20 10/15/20 10/15/20 12:45 13:00 13:15 Pulse Rate 58 L 72 80 Respiratory 8 L 9 L 12 Rate Blood Pressure 127/76 108/64 108/64 O2 Sat by Pulse 97 70 L 94 Oximetry 10/15/20 10/15/20 10/15/20 13:30 13:45 14:00 Pulse Rate 79 76 77 Respiratory 10 L 12 11 L Rate Blood Pressure 149/85 147/88 146/81 O2 Sat by Pulse 98 98 99 Oximetry 10/15/20 10/15/20 10/15/20 14:15 14:30 14:45 Pulse Rate 88 76 71 Respiratory 15 14 11 L Rate Blood Pressure 146/81 170/86 148/79 O2 Sat by Pulse 99 98 98 Oximetry 10/15/20 10/15/20 10/15/20 15:00 15:15 15:30 Pulse Rate 75 74 81 Respiratory 15 13 14 Rate Blood Pressure 148/79 152/80 136/82 O2 Sat by Pulse 98 98 99 Oximetry 10/15/20 10/15/20 10/15/20 15:45 16:00 16:15 Pulse Rate 74 85 76 Respiratory 11 L 14 12 Rate Blood Pressure 146/80 133/74 145/79 O2 Sat by Pulse 98 99 99 Oximetry 10/15/20 10/15/20 10/15/20 16:30 16:45 17:00 Pulse Rate 68 69 71 Respiratory 9 L 15 15 Rate Blood Pressure 142/75 136/74 147/79 O2 Sat by Pulse 98 97 98 Oximetry Constitutional: no acute distress, other (elderly obese female without significant patient / ventilator dyssynchrony) Eyes: non-icteric ENT: oropharynx moist, other (ETT 24 cm NATIVIDAD) Neck: supple, no lymphadenopathy, no JVD Effort: normal Ascultation: Bilateral: diminished breath sounds, rhonchi (scant) Percussion: Bilateral: not dull Cardiovascular: regular rate and rhythm Gastrointestinal: normoactive bowel sounds, soft, non-tender, non-distended (protuberant) Integumentary: normal Extremities: no cyanosis, no edema, pink and warm, pulses normal Neurologic: non-focal exam (grossly), pupils equal and round, other (Sedated) Psychiatric: other (sedated) CBC and BMP: 10/15/20 04:33 10/15/20 04:33 ABG, PT/INR, D-dimer: ABG ABG pH 7.297 (7.320-7.450) L 10/15/20 13:12 POC ABG pCO2 51.0 mmHg (32.0-48.0) H 10/15/20 13:12 ABG pCO2 26.0 mm Hg 10/15/20 03:35 POC ABG pO2 56.7 mmHg (83-108) L 10/15/20 13:12 ABG pO2 110.2 mm Hg (80.0-90.0) H 10/15/20 03:35 POC ABG HCO3 24.4 10/15/20 13:12 ABG O2 Saturation 98.4 % (95.0-99.0) 10/15/20 03:35 PT/INR, D-dimer PT 14.0 Sec. (12.2-14.9) 10/14/20 13:36 INR 1.07 (0.87-1.13) 10/14/20 13:36 Abnormal lab findings: Abnormal Labs 10/14/20 10/14/20 10/14/20 13:36 13:36 14:22 WBC 14.7 H MCHC 35 H Lymph % (Auto) Caroline % (Auto) Lymph # (Auto) Caroline # (Auto) Seg Neutrophils % Seg Neuts % (Manual) 89.0 H Lymphocytes % (Manual) 4.0 L Seg Neutrophils # Seg Neutrophils # Man 13.1 H Lymphocytes # (Manual) 0.6 L ABG pH 7.298 L POC ABG pCO2 POC ABG pO2 ABG pO2 285.8 H ABG O2 Saturation 99.5 H ABG Base Excess -4.1 L ABG Oxyhemoglobin ABG Sodium ABG Glucose Sodium 131 L Chloride 97.2 L Glucose 170 H Arterial Blood Glucose 10/14/20 10/15/20 10/15/20 17:09 03:35 04:33 WBC MCHC 36 H Lymph % (Auto) 9.6 L Caroline % (Auto) 10.1 H Lymph # (Auto) 1.0 L Caroline # (Auto) 1.1 H Seg Neutrophils % 79.8 H Seg Neuts % (Manual) Lymphocytes % (Manual) Seg Neutrophils # 8.4 H Seg Neutrophils # Man Lymphocytes # (Manual) ABG pH 7.536 H POC ABG pCO2 POC ABG pO2 ABG pO2 185.0 H 110.2 H ABG O2 Saturation 99.2 H ABG Base Excess ABG Oxyhemoglobin ABG Sodium ABG Glucose Sodium Chloride Glucose Arterial Blood Glucose 10/15/20 10/15/20 04:33 13:12 WBC MCHC Lymph % (Auto) Caroline % (Auto) Lymph # (Auto) Caroline # (Auto) Seg Neutrophils % Seg Neuts % (Manual) Lymphocytes % (Manual) Seg Neutrophils # Seg Neutrophils # Man Lymphocytes # (Manual) ABG pH 7.297 L POC ABG pCO2 51.0 H POC ABG pO2 56.7 L ABG pO2 ABG O2 Saturation ABG Base Excess ABG Oxyhemoglobin 84.6 L ABG Sodium 134.4 L ABG Glucose 118 H Sodium Chloride Glucose 120 H Arterial Blood Glucose 118 H Chest x-ray: image reviewed (no focal infiltrate; tubes & l;axel in good position) Allied health notes reviewed: nursing
[2020-10-16] MEDS: QUEtiapine 200 MG TAB PO SCH ×3 (01:52→21:56)
[2020-10-16] MEDS: fentaNYL DRIP Premix 2,000 MCG/100 ML BAG IV SCH ×3 (03:21→16:16)
--- NOTE | 2020-10-16 04:30 | XRay Report ---
CHEST 1 VIEW 10/16/2020 3:23 AM INDICATION / CLINICAL INFORMATION: follow up respiratory failure. COMPARISON: 10/15/2020 FINDINGS: SUPPORT DEVICES: Stable, satisfactory device positioning. HEART / MEDIASTINUM: Stable. LUNGS / PLEURA: No significant pulmonary or pleural abnormality. No pneumothorax. ADDITIONAL FINDINGS: No significant additional findings. IMPRESSION: 1. No acute findings. Signer Name: Dio Keenan MD Signed: 10/16/2020 4:26 AM Workstation Name: [employer]
--- NOTE | 2020-10-16 04:31 | XRay Report ---
ABDOMEN 1 VIEW(S) INDICATION / CLINICAL INFORMATION: OGT placement. COMPARISON: None available. FINDINGS: TUBES / LINES: The tip of the esophagogastric tube projects over the body the stomach. BOWEL GAS PATTERN/EXTRALUMINAL GAS: No significant abnormality. No pneumatosis or secondary signs of free air. ADDITIONAL FINDINGS: No significant additional findings. IMPRESSION: 1. Esophagogastric tube tip projects over the body of the stomach. Signer Name: Dio Keenan MD Signed: 10/16/2020 4:27 AM Workstation Name: [id number]
[2020-10-16] MEDS: levETIRAcetam 500 MG in DEXTROSE 5% IN WATER 100 ML IV SCH (06:02)
[2020-10-16] MEDS: LORazepam 2 MG/ML VIAL IV PRN ×3 (08:42→15:37)
[2020-10-16] MEDS: HEPARIN 5,000 UNIT/1 ML VIAL SUB-Q SCH ×2 (09:41→21:55)
[2020-10-16] MEDS: FAMOTIDINE 20 MG/2 ML INJ IV SCH ×2 (09:42→21:56)
[2020-10-16] MEDS: levETIRAcetam 1,000 MG in DEXTROSE 5% IN WATER 100 ML IV SCH ×2 (10:00→22:11)
[2020-10-16] MEDS ORDERED: LORazepam 2 MG/ML VIAL IV PRN (15:32)
[2020-10-16] MEDS ORDERED: LORazepam 2 MG/ML VIAL IV STA (15:33)
[2020-10-16] MEDS ORDERED: MIDAZOLAM 2 MG/2 ML INJ IV PRN (15:37)
[2020-10-16] MEDS ORDERED: LORazepam 100 MG in SODIUM CHLORIDE 0.9% 50 ML, EMPTY BAG 0 ML IV SCH (16:00)
[2020-10-16] MEDS: MIDAZOLAM 100 MG in SODIUM CHLORIDE 0.9% 80 ML IV SCH (16:33)
[2020-10-16] MEDS: LACOSAMIDE 100 MG in SODIUM CHLORIDE 0.9% 100 ML IV SCH (16:34)
--- NOTE | 2020-10-16 16:39 | Progress Note ---
Assessment and Plan Acute hypoxemic and hypercapnic respiratory failure. Acute encephalopathy (Toxic / metabolic). Status epilepticus. Hypertensive emergency at presentation. History of a brain aneurysm repair. Obesity. History of hypertension. Leukocytosis. Mild hyponatremia. Hyperglycemia. - begin Versed drip - stop Propofol - begin Vimpat - discussed neurology evaluation with attending - RALPH now in good position - begin enteral nutrition - continue care as below otherwise; - continue Seroquel 200 mg p.o. bid to spare IV sedatives - continue to wean supplemental oxygen for target O2 sat's > 92% acutely - continue daily SAT's and SBT assessment as tolerated - VAP bundle addressed - continue lung protective strategies - continue bronchodilators with pulmonary hygiene per RT - wean per pulmonary driven protocols otherwise - sedation prn for target RASS -1 to -2 - begin enteral nutritional support at goal rate as tolerated - empiric AB's coverage per ID rec's otherwise - accuchecks with glycemic control per SSI (While critically ill target blood glucose of 140-180 mg/dL; avoid hypoglycemia) - avoid nephrotoxins, renally dose all medications - continue Keppra as AED - continue to avoid benzodiazepine's, reduce the possibility of delirium - prn analgesia per CPOT score - Maintenance of sleep-wake cycle, avoid delirium - continue to avoid benzodiazepine's, reduce the possibility of delirium - aspiration precautions - G.I. & VTE prophylaxis - PT/OT/ROM exercises - continue mobility protocols for pressure ulcer prophylaxis - Monitor hemodynamics closely - continue other care per attending / other consultants - discharge planning ongoing concurrently .... Re-evaluate in am & prn CONDITION: CRITICAL PROGNOSIS: GUARDED CODE STATUS: FULL CODE The high probability of a clinically significant, sudden or life-threatening deterioration of the [respiratory, cardiovascular & neurologic] system(s) required my full and direct attention, intervention and personal management. The aggregate critical care time was [32] minutes without overlap. Time includes spent on; [x] Data Review and interpretation [x] Patient assessment and monitoring of vital signs [x] Documentation [x] Medication orders and management Subjective Date of service: 10/16/20 Principal diagnosis: Ac hypoxemic & hypercapnic resp failure; Status epilepticus; HTNsive emerge Interval history: Patient is seen today for: Ac hypoxemic and hypercapnic resp failure; Ac. encephalopathy; Status epilepticus; HTNsive emergency; History of a brain aneurysm repair; Obesity Seen and examined at bedside; 24hour events reviewed; nursing and respiratory care staff consulted; no adverse overnight events reported to me; resting peacefully in bed; RN reports seizure tyope activity to the head continuously most of this morning; no grand-mal activity; no emesis or overt aspiration Objective Vital Signs - 12hr 10/16/20 10/16/20 10/16/20 04:41 04:51 04:53 Temperature Pulse Rate 70 66 56 L Pulse Rate [ From Monitor] Respiratory 20 20 Rate Blood Pressure 110/57 110/57 110/57 O2 Sat by Pulse 98 98 99 Oximetry 10/16/20 10/16/20 10/16/20 04:57 05:00 05:11 Temperature Pulse Rate 60 58 L Pulse Rate [ From Monitor] Respiratory 19 20 20 Rate Blood Pressure 96/54 96/54 O2 Sat by Pulse 98 98 99 Oximetry 10/16/20 10/16/20 10/16/20 05:21 05:31 05:41 Temperature Pulse Rate 60 60 58 L Pulse Rate [ From Monitor] Respiratory 17 20 20 Rate Blood Pressure 96/54 96/54 96/54 O2 Sat by Pulse 99 99 98 Oximetry 10/16/20 10/16/20 10/16/20 05:51 06:00 06:11 Temperature Pulse Rate 55 L 56 L 52 L Pulse Rate [ From Monitor] Respiratory 20 20 20 Rate Blood Pressure 96/54 95/56 95/56 O2 Sat by Pulse 98 100 99 Oximetry 10/16/20 10/16/20 10/16/20 06:21 06:31 06:41 Temperature Pulse Rate 58 L 62 68 Pulse Rate [ From Monitor] Respiratory 20 20 20 Rate Blood Pressure 95/56 95/56 95/56 O2 Sat by Pulse 99 99 97 Oximetry 10/16/20 10/16/20 10/16/20 06:51 07:00 07:11 Temperature Pulse Rate 76 71 60 Pulse Rate [ 63 From Monitor] Respiratory 21 20 20 Rate Blood Pressure 101/56 104/62 104/62 O2 Sat by Pulse 98 98 99 Oximetry 10/16/20 10/16/20 10/16/20 07:21 07:31 07:41 Temperature Pulse Rate 61 58 L 56 L Pulse Rate [ From Monitor] Respiratory 20 20 20 Rate Blood Pressure 104/62 104/62 104/62 O2 Sat by Pulse 99 98 98 Oximetry 10/16/20 10/16/20 10/16/20 07:51 08:01 08:11 Temperature Pulse Rate 56 L 72 58 L Pulse Rate [ From Monitor] Respiratory 20 18 20 Rate Blood Pressure 104/62 129/63 129/63 O2 Sat by Pulse 98 100 99 Oximetry 10/16/20 10/16/20 10/16/20 08:21 08:31 08:41 Temperature Pulse Rate 58 L 70 59 L Pulse Rate [ From Monitor] Respiratory 20 20 20 Rate Blood Pressure 129/63 129/63 129/63 O2 Sat by Pulse 98 97 98 Oximetry 10/16/20 10/16/20 10/16/20 08:51 09:01 09:11 Temperature Pulse Rate 55 L 55 L 54 L Pulse Rate [ From Monitor] Respiratory 20 20 20 Rate Blood Pressure 129/63 96/50 96/50 O2 Sat by Pulse 99 98 98 Oximetry 10/16/20 10/16/20 10/16/20 09:21 09:25 09:31 Temperature Pulse Rate 57 L 55 L 52 L Pulse Rate [ From Monitor] Respiratory 20 20 Rate Blood Pressure 96/50 96/50 96/50 O2 Sat by Pulse 98 98 98 Oximetry 10/16/20 10/16/20 10/16/20 09:41 09:51 10:00 Temperature Pulse Rate 51 L 53 L 489 H Pulse Rate [ From Monitor] Respiratory 20 20 20 Rate Blood Pressure 96/50 96/50 98/56 O2 Sat by Pulse 98 98 98 Oximetry 10/16/20 10/16/20 10/16/20 10:11 10:21 10:31 Temperature Pulse Rate 51 L 50 L 51 L Pulse Rate [ From Monitor] Respiratory 20 20 20 Rate Blood Pressure 98/56 98/56 98/56 O2 Sat by Pulse 98 98 98 Oximetry 10/16/20 10/16/20 10/16/20 10:41 10:51 11:00 Temperature Pulse Rate 52 L 51 L 49 L Pulse Rate [ From Monitor] Respiratory 20 20 20 Rate Blood Pressure 98/56 98/56 96/55 O2 Sat by Pulse 98 98 98 Oximetry 10/16/20 10/16/20 10/16/20 11:11 11:21 11:31 Temperature Pulse Rate 49 L 52 L 51 L Pulse Rate [ From Monitor] Respiratory 20 20 20 Rate Blood Pressure 96/55 96/55 96/55 O2 Sat by Pulse 99 99 98 Oximetry 10/16/20 10/16/20 10/16/20 11:41 11:51 12:00 Temperature 98.3 F Pulse Rate 51 L 52 L 50 L Pulse Rate [ 52 L From Monitor] Respiratory 20 20 20 Rate Blood Pressure 96/55 96/55 96/54 O2 Sat by Pulse 99 99 99 Oximetry 10/16/20 10/16/20 10/16/20 12:11 12:21 12:31 Temperature Pulse Rate 50 L 51 L 52 L Pulse Rate [ From Monitor] Respiratory 20 20 20 Rate Blood Pressure 96/54 96/54 96/54 O2 Sat by Pulse 99 99 99 Oximetry 10/16/20 10/16/20 10/16/20 12:41 12:51 13:00 Temperature Pulse Rate 52 L 52 L 51 L Pulse Rate [ From Monitor] Respiratory 20 20 20 Rate Blood Pressure 96/54 96/54 96/57 O2 Sat by Pulse 99 99 99 Oximetry 10/16/20 10/16/20 10/16/20 13:11 13:21 13:31 Temperature Pulse Rate 47 L 51 L 50 L Pulse Rate [ From Monitor] Respiratory 20 20 20 Rate Blood Pressure 96/57 96/57 96/57 O2 Sat by Pulse 99 99 99 Oximetry 10/16/20 10/16/20 10/16/20 13:41 13:51 14:00 Temperature Pulse Rate 51 L 53 L 50 L Pulse Rate [ From Monitor] Respiratory 20 20 20 Rate Blood Pressure 96/57 96/57 104/57 O2 Sat by Pulse 99 99 99 Oximetry 10/16/20 10/16/20 10/16/20 14:11 14:21 14:31 Temperature Pulse Rate 49 L 49 L 51 L Pulse Rate [ From Monitor] Respiratory 20 20 20 Rate Blood Pressure 104/57 104/57 104/57 O2 Sat by Pulse 99 99 99 Oximetry 10/16/20 10/16/20 10/16/20 14:41 14:50 14:51 Temperature 98.3 F Pulse Rate 49 L 48 L Pulse Rate [ From Monitor] Respiratory 20 20 Rate Blood Pressure 104/57 104/57 O2 Sat by Pulse 99 99 Oximetry 10/16/20 10/16/20 10/16/20 15:00 15:11 15:21 Temperature Pulse Rate 51 L 54 L 63 Pulse Rate [ From Monitor] Respiratory 20 20 19 Rate Blood Pressure 104/59 104/59 104/59 O2 Sat by Pulse 99 99 99 Oximetry 10/16/20 10/16/20 10/16/20 15:31 15:41 15:51 Temperature Pulse Rate 65 62 53 L Pulse Rate [ From Monitor] Respiratory 20 20 20 Rate Blood Pressure 104/59 104/59 104/59 O2 Sat by Pulse 98 99 99 Oximetry 10/16/20 16:17 Temperature Pulse Rate 52 L Pulse Rate [ From Monitor] Respiratory Rate Blood Pressure 131/71 O2 Sat by Pulse 99 Oximetry Constitutional: appears uncomfortable, other (elderly obese female without significant patient / ventilator dyssynchrony) Eyes: non-icteric ENT: oropharynx moist, other (ETT 24 cm NATIVIDAD) Neck: supple, no lymphadenopathy, no JVD Effort: normal Ascultation: Bilateral: diminished breath sounds, rhonchi (scant) Percussion: Bilateral: not dull Cardiovascular: regular rate and rhythm Gastrointestinal: normoactive bowel sounds, soft, non-tender, non-distended (protuberant) Integumentary: normal Extremities: no cyanosis, no edema, pink and warm, pulses normal Neurologic: non-focal exam (grossly), pupils equal and round, other (slow rhythmic movements of her head continuously ) Psychiatric: other (sedated) CBC and BMP: 10/15/20 04:33 10/15/20 04:33 ABG, PT/INR, D-dimer: ABG ABG pH 7.439 (7.320-7.450) 10/16/20 05:42 POC ABG pCO2 33.5 mmHg (32.0-48.0) 10/16/20 05:42 ABG pCO2 26.0 mm Hg 10/15/20 03:35 POC ABG pO2 87.4 mmHg (83-108) 10/16/20 05:42 ABG pO2 110.2 mm Hg (80.0-90.0) H 10/15/20 03:35 POC ABG HCO3 22.2 10/16/20 05:42 ABG O2 Saturation 98.4 % (95.0-99.0) 10/15/20 03:35 PT/INR, D-dimer PT 14.0 Sec. (12.2-14.9) 11/13/20 13:36 INR 1.07 (0.87-1.13) 10/14/20 13:36 Abnormal lab findings: Abnormal Labs 10/14/20 10/14/20 10/14/20 13:36 13:36 14:22 WBC 14.7 H MCHC 35 H Lymph % (Auto) Hand % (Auto) Lymph # (Auto) Hand # (Auto) Seg Neutrophils % Seg Neuts % (Manual) 89.0 H Lymphocytes % (Manual) 4.0 L Seg Neutrophils # Seg Neutrophils # Man 13.1 H Lymphocytes # (Manual) 0.6 L ABG pH 7.298 L POC ABG pCO2 POC ABG pO2 ABG pO2 285.8 H ABG O2 Saturation 99.5 H ABG Base Excess -4.1 L ABG Oxyhemoglobin ABG Sodium ABG Glucose Sodium 131 L Chloride 97.2 L Glucose 170 H POC Glucose Arterial Blood Glucose 10/14/20 10/15/20 10/15/20 17:09 03:35 04:33 WBC MCHC 36 H Lymph % (Auto) 9.6 L Hand % (Auto) 10.1 H Lymph # (Auto) 1.0 L Hand # (Auto) 1.1 H Seg Neutrophils % 79.8 H Seg Neuts % (Manual) Lymphocytes % (Manual) Seg Neutrophils # 8.4 H Seg Neutrophils # Man Lymphocytes # (Manual) ABG pH 7.536 H POC ABG pCO2 POC ABG pO2 ABG pO2 185.0 H 110.2 H ABG O2 Saturation 99.2 H ABG Base Excess ABG Oxyhemoglobin ABG Sodium ABG Glucose Sodium Chloride Glucose POC Glucose Arterial Blood Glucose 10/15/20 10/15/20 10/16/20 04:33 13:12 00:09 WBC MCHC Lymph % (Auto) Hand % (Auto) Lymph # (Auto) Hand # (Auto) Seg Neutrophils % Seg Neuts % (Manual) Lymphocytes % (Manual) Seg Neutrophils # Seg Neutrophils # Man Lymphocytes # (Manual) ABG pH 7.297 L POC ABG pCO2 51.0 H POC ABG pO2 56.7 L ABG pO2 ABG O2 Saturation ABG Base Excess ABG Oxyhemoglobin 84.6 L ABG Sodium 134.4 L ABG Glucose 118 H Sodium Chloride Glucose 120 H POC Glucose 114 H Arterial Blood Glucose 118 H 10/16/20 10/16/20 05:42 05:46 WBC MCHC Lymph % (Auto) Hand % (Auto) Lymph # (Auto) Hand # (Auto) Seg Neutrophils % Seg Neuts % (Manual) Lymphocytes % (Manual) Seg Neutrophils # Seg Neutrophils # Man Lymphocytes # (Manual) ABG pH POC ABG pCO2 POC ABG pO2 ABG pO2 ABG O2 Saturation ABG Base Excess ABG Oxyhemoglobin ABG Sodium 132.6 L ABG Glucose 112 H Sodium Chloride Glucose POC Glucose 106 H Arterial Blood Glucose 112 H Allied health notes reviewed: nursing
[2020-10-16] MEDS ORDERED: MIDAZOLAM 100 MG in SODIUM CHLORIDE 0.9% 80 ML IV SCH (17:00)
[2020-10-17] MEDS: fentaNYL DRIP Premix 2,000 MCG/100 ML BAG IV SCH (00:59)
--- NOTE | 2020-10-17 04:01 | XRay Report ---
CHEST 1 VIEW 10/17/2020 3:23 AM INDICATION / CLINICAL INFORMATION: follow up respiratory failure. COMPARISON: 10/16/2020 FINDINGS: SUPPORT DEVICES: Stable, satisfactory device positioning. HEART / MEDIASTINUM: Stable. LUNGS / PLEURA: No significant pulmonary or pleural abnormality. No pneumothorax. ADDITIONAL FINDINGS: No significant additional findings. IMPRESSION: 1. No acute findings. Signer Name: Dio Keenan MD Signed: 10/17/2020 3:57 AM Workstation Name: [id number]
[2020-10-17] MEDS: LACOSAMIDE 100 MG in SODIUM CHLORIDE 0.9% 100 ML IV SCH (04:32)
[2020-10-17 04:42] LABS: ABG Base Excess -1.4 mmol/L (-2.0-3.0); ABG Methemoglobin 0.5 % (0.0-1.5); ABG Oxygen Saturation 97.6 % (95.0-99.0); ABG PCO2 32.6 mm Hg; ABG PH 7.447 pH Units (7.350-7.450); ABG PO2 96.6 mm Hg (80.0-90.0)
[2020-10-17] MEDS ORDERED: DEXTROSE 50% IN WATER (25GM) 50 ML SYRINGE IV PRN (05:46)
[2020-10-17] MEDS: FAMOTIDINE 20 MG/2 ML INJ IV SCH ×2 (09:01→21:08)
[2020-10-17] MEDS: HEPARIN 5,000 UNIT/1 ML VIAL SUB-Q SCH ×2 (09:01→21:08)
[2020-10-17] MEDS: LORazepam 2 MG/ML VIAL IV PRN ×2 (09:01→17:52)
[2020-10-17] MEDS: QUEtiapine 200 MG TAB PO SCH ×2 (09:01→21:09)
[2020-10-17] MEDS: levETIRAcetam 1,000 MG in DEXTROSE 5% IN WATER 100 ML IV SCH (09:53)
[2020-10-17] MEDS ORDERED: LIPASE 10,500/PROTEASE 25,000/AMYLASE 43,750 (UNITS) DR CAP FEEDTUBE PRN (09:55)
[2020-10-17] MEDS ORDERED: SIMPLE SYRUP 15 ML FEEDTUBE PRN ×2 (09:55)
[2020-10-17] MEDS ORDERED: SODIUM BICARBONATE 325 MG TAB FEEDTUBE PRN (09:55)
--- NOTE | 2020-10-17 10:03 | Progress Note ---
Assessment and Plan The high probability of a clinically significant, sudden or life threatening deterioration of the [cardiac, pulmonary, renal] system(s) required my full and direct attention, intervention and personal management. The aggregate critical care time was [40] minutes. This time is in addition to time spent performing reported procedures but includes the following: [x] Data Review and interpretation [x] Patient assessment and monitoring of vital signs [x] Documentation [x] Medication orders and management (1) Acute respiratory failure Current Visit: Yes Status: Acute Qualifiers: Respiratory failure complication: hypoxia Qualified Code(s): J96.01 - Acute respiratory failure with hypoxia Plan to address problem: Patient intubated and on ventilatory support, daily spontaneous breathing trials, sedation holiday, wean vent as tolerated, critical care team consulted. (2) Status epilepticus Current Visit: Yes Status: Acute Plan to address problem: Patient on multiple antiepileptic drugs (3) Hypertensive emergency Current Visit: Yes Status: Acute Plan to address problem: Monitor blood pressure every shift, continue IV hydralazine, (4) Acute encephalopathy Current Visit: Yes Status: Acute Plan to address problem: CT head, neuro check, seizure precautions, aspiration precautions, (5) Leukocytosis Current Visit: Yes Status: Acute Plan to address problem: Chest x-ray, CBC, urinalysis, empiric IV antibiotic therapy x1 dose, repeat CBC in a.m. (6) DVT prophylaxis Current Visit: Yes Status: Acute Plan to address problem: SCD to bilateral lower extremities while in bed, prophylactic anticoagulation (7) Advance care planning Current Visit: Yes Status: Acute Plan to address problem: Disease education conducted, patient is full code, prognosis discussed, +30 minutes. Subjective Date of service: 10/16/20 Principal diagnosis: Ac hypoxemic & hypercapnic resp failure; Status epilepticus; HTNsive emerge Interval history: 65 YO Female with Obesity, HTN, presents to ED for evaluation. Patient is intub ated and on ventilatory support at the time of my evaluation and is unable to provide history. Patient history is taken from EMS staff, ED staff. As per staff the patient was found down and unresponsive by her neighbor. Patient neighbor describe seizure-like activity. EMS was notified and upon arrival the patient was found to be in distress and actively seizing. Patient treated with 2 mg of Ativan which terminated the seizures. The patient was subsequently transported to [facility] for further evaluation and care of the aforementioned symptoms. Patient was seen and evaluated in the emergency department. All lab and imaging studies reviewed. Patient found to have symptoms consistent with st atus epilepticus which was evidenced by recurrent seizures in the emergency department with concomitant decrease in pulse oximetry to 84% on room air. The patient was also found to have hypertensive emergency with a blood pressure of 223/143. The patient was deemed unable to protect her airway and was intubated for airway protection. Patient also found to have acute encephalopathy. Patient admitted to ICU due to increased risk of decompensation. Critical care team consulted in ED. No prior admission for review. No medication listed at time of admission for reconciliation. Advanced care planning conducted in ED. Day # 2 10/15/20 Seizures continue formula maker consult appreciated Day #3 10/16/2020 Seizures continue Patient on multiple antiepileptic drugs Neurology consult appreciated Objective - Exam Narrative Exam: Intubated - Constitutional Vitals: Vital Signs - 12hr 10/16/20 10/16/20 10/16/20 22:10 22:20 22:28 Temperature Pulse Rate 51 L 53 L 59 L Pulse Rate [ From Monitor] Respiratory 19 20 20 Rate Blood Pressure 119/63 119/63 119/63 O2 Sat by Pulse 100 100 99 Oximetry 10/16/20 10/16/20 10/16/20 22:30 22:40 22:50 Temperature Pulse Rate 61 65 60 Pulse Rate [ From Monitor] Respiratory 20 20 20 Rate Blood Pressure 119/63 119/63 119/63 O2 Sat by Pulse 99 99 99 Oximetry 10/16/20 10/16/20 10/16/20 23:00 23:10 23:20 Temperature Pulse Rate 71 65 68 Pulse Rate [ From Monitor] Respiratory 20 19 20 Rate Blood Pressure 129/67 129/67 129/67 O2 Sat by Pulse 99 99 99 Oximetry 10/16/20 10/16/20 10/16/20 23:30 23:40 23:50 Temperature Pulse Rate 65 63 63 Pulse Rate [ From Monitor] Respiratory 20 19 20 Rate Blood Pressure 129/67 129/67 129/67 O2 Sat by Pulse 100 100 100 Oximetry 10/17/20 10/17/20 10/17/20 00:00 00:01 00:10 Temperature 99.1 F Pulse Rate 66 69 59 L Pulse Rate [ 66 From Monitor] Respiratory 20 20 Rate Blood Pressure 110/68 110/68 110/68 O2 Sat by Pulse 100 99 100 Oximetry 10/17/20 10/17/20 10/17/20 00:20 00:30 00:40 Temperature Pulse Rate 58 L 57 L 58 L Pulse Rate [ From Monitor] Respiratory 20 20 20 Rate Blood Pressure 110/68 110/68 110/68 O2 Sat by Pulse 100 100 100 Oximetry 10/17/20 10/17/20 10/17/20 00:50 01:00 01:10 Temperature Pulse Rate 56 L 52 L 53 L Pulse Rate [ From Monitor] Respiratory 20 20 20 Rate Blood Pressure 110/68 105/60 105/60 O2 Sat by Pulse 100 100 100 Oximetry 10/17/20 10/17/20 10/17/20 01:20 01:30 01:40 Temperature Pulse Rate 54 L 45 L 48 L Pulse Rate [ From Monitor] Respiratory 20 20 20 Rate Blood Pressure 105/60 105/60 105/60 O2 Sat by Pulse 100 100 100 Oximetry 10/17/20 10/17/20 10/17/20 01:50 02:00 02:10 Temperature Pulse Rate 51 L 50 L 45 L Pulse Rate [ From Monitor] Respiratory 14 20 20 Rate Blood Pressure 105/60 87/50 87/50 O2 Sat by Pulse 100 100 100 Oximetry 10/17/20 10/17/20 10/17/20 02:20 02:30 02:40 Temperature Pulse Rate 47 L 50 L 50 L Pulse Rate [ From Monitor] Respiratory 20 13 20 Rate Blood Pressure 87/50 87/50 88/50 O2 Sat by Pulse 100 100 100 Oximetry 10/17/20 10/17/20 10/17/20 02:50 03:00 03:10 Temperature Pulse Rate 50 L 50 L 51 L Pulse Rate [ From Monitor] Respiratory 20 20 20 Rate Blood Pressure 88/50 98/58 98/58 O2 Sat by Pulse 100 100 100 Oximetry 10/17/20 10/17/20 10/17/20 03:20 03:30 03:40 Temperature Pulse Rate 50 L 56 L 59 L Pulse Rate [ From Monitor] Respiratory 20 15 20 Rate Blood Pressure 98/58 98/58 98/58 O2 Sat by Pulse 100 100 100 Oximetry 10/17/20 10/17/20 10/17/20 03:50 03:55 04:00 Temperature 98.9 F Pulse Rate 58 L 58 L Pulse Rate [ 58 L From Monitor] Respiratory 20 20 Rate Blood Pressure 98/58 109/64 O2 Sat by Pulse 100 100 Oximetry 10/17/20 10/17/20 10/17/20 04:10 04:11 04:20 Temperature Pulse Rate 59 L 60 77 Pulse Rate [ From Monitor] Respiratory 20 18 Rate Blood Pressure 109/64 109/64 109/64 O2 Sat by Pulse 100 100 95 Oximetry 10/17/20 10/17/20 10/17/20 04:30 04:40 04:50 Temperature Pulse Rate 75 81 88 Pulse Rate [ From Monitor] Respiratory 21 20 19 Rate Blood Pressure 109/64 109/64 109/64 O2 Sat by Pulse 99 100 99 Oximetry 10/17/20 10/17/20 10/17/20 05:00 05:10 05:20 Temperature Pulse Rate 75 90 83 Pulse Rate [ From Monitor] Respiratory 20 19 21 Rate Blood Pressure 118/70 118/70 118/70 O2 Sat by Pulse 98 99 98 Oximetry 10/17/20 10/17/20 10/17/20 05:30 05:40 05:50 Temperature Pulse Rate 78 76 80 Pulse Rate [ From Monitor] Respiratory 20 20 19 Rate Blood Pressure 118/70 118/70 118/70 O2 Sat by Pulse 98 99 98 Oximetry 10/17/20 10/17/20 10/17/20 06:00 06:10 06:20 Temperature Pulse Rate 79 72 75 Pulse Rate [ From Monitor] Respiratory 20 20 20 Rate Blood Pressure 113/65 113/65 113/65 O2 Sat by Pulse 99 99 99 Oximetry 10/17/20 10/17/20 10/17/20 06:30 06:40 06:50 Temperature Pulse Rate 74 71 68 Pulse Rate [ From Monitor] Respiratory 20 20 20 Rate Blood Pressure 113/65 113/65 113/65 O2 Sat by Pulse 99 99 99 Oximetry 10/17/20 10/17/20 10/17/20 07:00 07:10 07:20 Temperature Pulse Rate 66 65 61 Pulse Rate [ From Monitor] Respiratory 20 20 20 Rate Blood Pressure 101/55 101/55 101/55 O2 Sat by Pulse 100 100 100 Oximetry 10/17/20 10/17/20 10/17/20 07:30 07:40 07:42 Temperature Pulse Rate 60 63 74 Pulse Rate [ From Monitor] Respiratory 20 20 20 Rate Blood Pressure 101/55 101/55 113/65 O2 Sat by Pulse 100 100 99 Oximetry 10/17/20 10/17/20 10/17/20 07:50 08:00 08:10 Temperature 98.9 F Pulse Rate 62 64 69 Pulse Rate [ 70 From Monitor] Respiratory 20 20 20 Rate Blood Pressure 101/55 109/61 109/61 O2 Sat by Pulse 100 100 99 Oximetry 10/17/20 10/17/20 10/17/20 08:20 08:30 08:40 Temperature Pulse Rate 73 80 106 H Pulse Rate [ From Monitor] Respiratory 21 18 21 Rate Blood Pressure 101/55 101/55 101/55 O2 Sat by Pulse 99 99 100 Oximetry 10/17/20 10/17/20 10/17/20 08:50 09:00 09:10 Temperature Pulse Rate 100 H 112 H 108 H Pulse Rate [ From Monitor] Respiratory 9 L 14 20 Rate Blood Pressure 101/55 101/55 141/87 O2 Sat by Pulse 95 92 97 Oximetry 10/17/20 09:20 Temperature Pulse Rate 116 H Pulse Rate [ From Monitor] Respiratory 18 Rate Blood Pressure 141/87 O2 Sat by Pulse 97 Oximetry General appearance: Present: no acute distress, well-nourished - EENT Eyes: PERRL, EOM intact ENT: hearing intact, clear oral mucosa Ears: bilateral: normal - Neck Neck: supple, normal ROM - Respiratory Respiratory effort: normal Respiratory: bilateral: CTA - Breasts Breasts: normal - Cardiovascular Heart rate: 88 Rhythm: regular Heart Sounds: Present: S1 & S2. Absent: gallop, rub Extremities: pulses intact, No edema, normal color, Full ROM - Gastrointestinal General gastrointestinal: Present: soft, non-tender, non-distended, normal bowel sounds - Genitourinary Female genitourinary: normal - Integumentary Integumentary: clear, warm, dry - Musculoskeletal Musculoskeletal: 1, strength equal bilaterally - Neurologic Neurologic: moves all extremities - Psychiatric Psychiatric: memory intact, appropriate mood/affect, intact judgment & insight - Labs CBC & Chem 7: 10/30/20 07:53 10/30/20 07:53 Labs: Abnormal lab results 10/17/20 Range/Units 04:08 ABG pO2 96.6 H (80.0-90.0) mm Hg HEART Score - HEART Score Troponin: Troponin T 0.015 ng/mL (0.00-0.029) 10/14/20 13:36
[2020-10-17 10:41] LABS: Hemoglobin 12.7 gm/dl (10.1-14.3); Mean Corpuscular HGB Conc 33 % (30-34); Mean Corpuscular Volume 86 fl (79-97); Platelet Count 235 K/mm3 (140-440); Red Blood Count 4.56 M/mm3 (3.65-5.03)
[2020-10-17 11:06] LABS: BUN/Creatinine Ratio 24; Blood Urea Nitrogen 19 mg/dL (7-17); Calcium 9.3 mg/dL (8.4-10.2); Hemolysis Index 8
--- NOTE | 2020-10-17 11:32 | Consultation ---
History of Present Illness Consult date: 10/17/20 Reason for Consult: Status Epilepticus Chief complaint: Seizures History of present illness: 65 yo female with htn, obesity presenting with multiple seizures (status epilepticus), intubated, and evaluated initially by teleneurology in the ED. The patient was initiated on Keppra and Vimpat and has received ativan prn and was started on a versed gtt to control her seizures. Per RN, the patient was noted with seizure activity after being taken off versed gtt transiently this morning. Noted also w/ desat and hemodnamic changes with the seizure. Past History Past Medical History: hypertension, other (See HPI) Past Surgical History: Other (Brain surgery) Social history: single. denies: smoking, alcohol abuse, prescription drug abuse Family history: hypertension Medications and Allergies Allergies Allergy/AdvReac Type Severity Reaction Status Date / Time Unable to Assess Allergy Unverified 10/14/20 13:38 Home Medications Medication Instructions Recorded Confirmed Last Taken Type Unobtainable 10/14/20 10/14/20 Unknown History Active Meds: Active Medications Albuterol (Proventil) 2.5 mg IH Q4HRT PRN PRN Reason: Shortness Of Breath Lipase/Protease/Amylase (Pancreaze Dr 10,500 Unit) 1 each FEEDTUBE PRN PRN PRN Reason: For Clogged Feeding Tube Dextrose (D50w (25gm) Syringe) 0 ml IV Q30MIN PRN; Protocol PRN Reason: Hypoglycemia Last Admin: 10/17/20 06:04 Dose: 10 ml Documented by: Famotidine (Pepcid) 20 mg IV BID [facility] Last Admin: 10/17/20 09:01 Dose: 20 mg Documented by: Fentanyl (Sublimaze) 50 mcg IV Q10MIN PRN PRN Reason: ANALGESIA Heparin Sodium (Porcine) (Heparin) 5,000 unit SUB-Q Q12HR [facility] Last Admin: 10/17/20 09:01 Dose: 5,000 unit Documented by: Hydralazine HCl (Apresoline) 10 mg IV Q6H PRN PRN Reason: Hypertension Hydrophilic Ointment (Vaseline Lip Therapy) 1 applic TP Q2HR PRN PRN Reason: Dry Lips Fentanyl Citrate (Fentanyl Drip Premix) 2,000 mcg in 100 mls @ 4.99 mls/hr IV TITR ABDOUL; Protocol Last Titration: 10/17/20 07:30 Dose: 0 mcg/kg/hr, 0 mls/hr Documented by: Midazolam HCl 100 mg/ Sodium (Chloride) 100 mls @ 2 mls/hr IV TITR [facility]; Protocol Last Titration: 10/17/20 09:04 Dose: 2 mg/hr, 2 mls/hr Documented by: Levetiracetam 1,500 mg/ (Dextrose) 115 mls @ 400 mls/hr IV Q12HR [facility] Lacosamide 200 mg/ Sodium (Chloride) 120 mls @ 100 mls/hr IV Q12H [facility] Fosphenytoin Sodium 1,500 mg. (pe/ Sodium Chloride) 130 mls @ 200 mls/hr IV ONCE ONE Stop: 10/17/20 11:59 Lorazepam (Ativan) 2 mg IV Q1H PRN PRN Reason: seizures Last Admin: 10/17/20 09:01 Dose: 2 mg Documented by: Lorazepam (Ativan) 2 mg IV Q10MIN PRN PRN Reason: Agitation Last Admin: 10/17/20 08:51 Dose: 2 mg Documented by: Midazolam HCl (Versed) 2 mg IV Q10MIN PRN PRN Reason: Sedation Multi-Ingred Cream/Lotion/Oil/Oint (Artificial Tears Ophth Oint) 1 applic OU Q4HR PRN PRN Reason: Dry Eye(s) Phenytoin (Dilantin) 100 mg IV Q8HR [facility] Quetiapine Fumarate (Seroquel) 200 mg PO BID [facility] Last Admin: 10/17/20 09:01 Dose: 200 mg Documented by: Simple Syrup (Simple Syrup) 15 ml FEEDTUBE PRN PRN PRN Reason: Hypoglycemia Simple Syrup (Simple Syrup) 30 ml FEEDTUBE PRN PRN PRN Reason: Hypoglycemia Sodium Bicarbonate (Sodium Bicarbonate) 325 mg FEEDTUBE PRN PRN PRN Reason: For Clogged Feeding Tube Sodium Chloride (Sodium Chloride Flush Syringe 10 Ml) 10 ml IV BID [facility] Last Admin: 10/17/20 09:02 Dose: 10 ml Documented by: Sodium Chloride (Sodium Chloride Flush Syringe 10 Ml) 10 ml IV PRN PRN PRN Reason: LINE FLUSH Review of Systems ROS unobtainable: due to endotracheal tube Physical Examination - Vital Signs Vital Signs: Vital Signs Pulse Resp Pulse Ox 113 H 12 94 10/14/20 12:56 10/14/20 12:56 10/14/20 12:56 - Additional Exam Additional Exam: Gen: nad, well-nourished, intubated; Head: normocephalic; Eyes: no gaze deviation; no ptosis appreciated; ENT: +ETT; CVS: warm and well-perfused; Pulm: no respiratory distress; GI: non-distended, protuberant; Ext: no cyanosis at distal extremities; Skin: no acute rash at distal extremities; Heme: no bruising ecchymosis at distal extremities; Neuro: obtunded, intubated, CN 2 - sluggish reactive pupils, CN 3, 4, 6 - oculocephalic intact, CN 5/7 - corneal reflex intact, CN 9/10 - cough elicited via ETT, CN 11/12 - pt cannot cooperate secondary to LOC; Motor/Sensory - 0/5 at all except 1/5 at LUE to tactile stimuli; Cerebellar/Gait - pt cannot cooperate secondary to LOC; NIHSS>28; Results - Laboratory Findings CBC and BMP: 10/17/20 09:23 10/17/20 09:23 Abnormal Lab Findings: Abnormal Labs 10/14/20 10/14/20 10/14/20 13:36 13:36 14:22 WBC 14.7 H MCHC 35 H Lymph % (Auto) [place] % (Auto) Lymph # (Auto) [place] # (Auto) Seg Neutrophils % Seg Neuts % (Manual) 89.0 H Lymphocytes % (Manual) 4.0 L Seg Neutrophils # Seg Neutrophils # Man 13.1 H Lymphocytes # (Manual) 0.6 L ABG pH 7.298 L POC ABG pCO2 POC ABG pO2 ABG pO2 285.8 H ABG O2 Saturation 99.5 H ABG Base Excess -4.1 L ABG Oxyhemoglobin ABG Sodium ABG Glucose Sodium 131 L Chloride 97.2 L Carbon Dioxide BUN Glucose 170 H POC Glucose Arterial Blood Glucose 10/14/20 10/15/20 10/15/20 17:09 03:35 04:33 WBC MCHC 36 H Lymph % (Auto) 9.6 L [place] % (Auto) 10.1 H Lymph # (Auto) 1.0 L [place] # (Auto) 1.1 H Seg Neutrophils % 79.8 H Seg Neuts % (Manual) Lymphocytes % (Manual) Seg Neutrophils # 8.4 H Seg Neutrophils # Man Lymphocytes # (Manual) ABG pH 7.536 H POC ABG pCO2 POC ABG pO2 ABG pO2 185.0 H 110.2 H ABG O2 Saturation 99.2 H ABG Base Excess ABG Oxyhemoglobin ABG Sodium ABG Glucose Sodium Chloride Carbon Dioxide BUN Glucose POC Glucose Arterial Blood Glucose 10/15/20 10/15/20 10/16/20 04:33 13:12 00:09 WBC MCHC Lymph % (Auto) [place] % (Auto) Lymph # (Auto) [place] # (Auto) Seg Neutrophils % Seg Neuts % (Manual) Lymphocytes % (Manual) Seg Neutrophils # Seg Neutrophils # Man Lymphocytes # (Manual) ABG pH 7.297 L POC ABG pCO2 51.0 H POC ABG pO2 56.7 L ABG pO2 ABG O2 Saturation ABG Base Excess ABG Oxyhemoglobin 84.6 L ABG Sodium 134.4 L ABG Glucose 118 H Sodium Chloride Carbon Dioxide BUN Glucose 120 H POC Glucose 114 H Arterial Blood Glucose 118 H 10/16/20 10/16/20 10/17/20 05:42 05:46 04:08 WBC MCHC Lymph % (Auto) [place] % (Auto) Lymph # (Auto) [place] # (Auto) Seg Neutrophils % Seg Neuts % (Manual) Lymphocytes % (Manual) Seg Neutrophils # Seg Neutrophils # Man Lymphocytes # (Manual) ABG pH POC ABG pCO2 POC ABG pO2 ABG pO2 96.6 H ABG O2 Saturation ABG Base Excess ABG Oxyhemoglobin ABG Sodium 132.6 L ABG Glucose 112 H Sodium Chloride Carbon Dioxide BUN Glucose POC Glucose 106 H Arterial Blood Glucose 112 H 10/17/20 10/17/20 10/17/20 09:23 09:23 10:46 WBC 12.3 H MCHC Lymph % (Auto) [place] % (Auto) Lymph # (Auto) [place] # (Auto) Seg Neutrophils % Seg Neuts % (Manual) Lymphocytes % (Manual) Seg Neutrophils # Seg Neutrophils # Man Lymphocytes # (Manual) ABG pH POC ABG pCO2 POC ABG pO2 71.6 L ABG pO2 ABG O2 Saturation ABG Base Excess ABG Oxyhemoglobin 92.6 L ABG Sodium 134.8 L ABG Glucose 105 H Sodium Chloride Carbon Dioxide 21 L BUN 19 H Glucose POC Glucose Arterial Blood Glucose 105 H Assessment and Plan 65 yo female with htn, obesity, presenting w/ status epilepticus. 1. Status Epilepticus - increase keppra from 1000 to 1500 mg q12; vimpat from 100 to 200 mg q12; initiate fosphenytoin 1500 mg PE x 1 dose stat and then 100 mg iv q8; continue versed gtt for now; awaiting EEG (recommend EEG to be done off Versed). 2. Therapeutic Drug Monitoring - check dilantin level in AM. 3. Metabolic Encephalopathy - in the setting of underlying infection. 4. Patient may need transfer to a higher level of care if the EEG (off Versed) reveals ictal activity despite 3 AEDs as above in order to obtain continuous EEG monitoring.
[2020-10-17] MEDS ORDERED: FOSPHENYTOIN 1,500 MG.PE in SODIUM CHLORIDE 0.9% 100 ML IV ONE (12:00)
[2020-10-17] MEDS: levETIRAcetam 1,500 MG in DEXTROSE 5% IN WATER 100 ML IV SCH ×2 (12:16→21:32)
--- NOTE | 2020-10-17 16:01 | Progress Note ---
Assessment and Plan Acute hypoxemic and hypercapnic respiratory failure. Acute encephalopathy (Toxic / metabolic). Status epilepticus. Hypertensive emergency at presentation. History of a brain aneurysm repair. Obesity. History of hypertension. Leukocytosis. Mild hyponatremia. Hyperglycemia. - neurology evaluation ongoing - continue Versed drip - continue Vimpat & Keppra (Adjust per neurologist) - continue enteral nutrition at goal rate as tolerated - continue care as below otherwise; - continue Seroquel 200 mg p.o. bid to spare IV sedatives - continue to wean supplemental oxygen for target O2 sat's > 92% acutely - continue daily SAT's and SBT assessment as tolerated - VAP bundle addressed - continue lung protective strategies - continue bronchodilators with pulmonary hygiene per RT - wean per pulmonary driven protocols otherwise - sedation prn for target RASS -1 to -2 - begin enteral nutritional support at goal rate as tolerated - empiric AB's coverage per ID rec's otherwise - accuchecks with glycemic control per SSI (While critically ill target blood glucose of 140-180 mg/dL; avoid hypoglycemia) - avoid nephrotoxins, renally dose all medications - continue Keppra as AED - continue to avoid benzodiazepine's, reduce the possibility of delirium - prn analgesia per CPOT score - Maintenance of sleep-wake cycle, avoid delirium - continue to avoid benzodiazepine's, reduce the possibility of delirium - aspiration precautions - G.I. & VTE prophylaxis - PT/OT/ROM exercises - continue mobility protocols for pressure ulcer prophylaxis - Monitor hemodynamics closely - continue other care per attending / other consultants - discharge planning ongoing concurrently .... Re-evaluate in am & prn CONDITION: CRITICAL PROGNOSIS: GUARDED CODE STATUS: FULL CODE The high probability of a clinically significant, sudden or life-threatening deterioration of the [respiratory, cardiovascular & neurologic] system(s) required my full and direct attention, intervention and personal management. The aggregate critical care time was [35] minutes without overlap. Time includes spent on; [x] Data Review and interpretation [x] Patient assessment and monitoring of vital signs [x] Documentation [x] Medication orders and management Subjective Date of service: 10/17/20 Principal diagnosis: Ac hypoxemic & hypercapnic resp failure; Status epilepticus; HTNsive emerge Interval history: Patient is seen today for: Ac hypoxemic and hypercapnic resp failure; Ac. encephalopathy; Status epilepticus; HTNsive emergency; History of a brain aneurysm repair; Obesity Seen and examined at bedside; 24hour events reviewed; nursing and respiratory care staff consulted; no adverse overnight events reported to me; resting peacefully in bed; RN reports seizure type activity even on Versed earlier; on PSV trial now and tolerating well; no emesis or overt aspiration Objective Vital Signs - 12hr 10/17/20 10/17/20 10/17/20 04:00 04:10 04:11 Temperature Pulse Rate 58 L 59 L 60 Pulse Rate [ 58 L From Monitor] Respiratory 20 20 Rate Blood Pressure 109/64 109/64 109/64 O2 Sat by Pulse 100 100 100 Oximetry 10/17/20 10/17/20 10/17/20 04:20 04:30 04:40 Temperature Pulse Rate 77 75 81 Pulse Rate [ From Monitor] Respiratory 18 21 20 Rate Blood Pressure 109/64 109/64 109/64 O2 Sat by Pulse 95 99 100 Oximetry 10/17/20 10/17/20 10/17/20 04:50 05:00 05:10 Temperature Pulse Rate 88 75 90 Pulse Rate [ From Monitor] Respiratory 19 20 19 Rate Blood Pressure 109/64 118/70 118/70 O2 Sat by Pulse 99 98 99 Oximetry 10/17/20 10/17/20 10/17/20 05:20 05:30 05:40 Temperature Pulse Rate 83 78 76 Pulse Rate [ From Monitor] Respiratory 21 20 20 Rate Blood Pressure 118/70 118/70 118/70 O2 Sat by Pulse 98 98 99 Oximetry 10/17/20 10/17/20 10/17/20 05:50 06:00 06:10 Temperature Pulse Rate 80 79 72 Pulse Rate [ From Monitor] Respiratory 19 20 20 Rate Blood Pressure 118/70 113/65 113/65 O2 Sat by Pulse 98 99 99 Oximetry 10/17/20 10/17/20 10/17/20 06:20 06:30 06:40 Temperature Pulse Rate 75 74 71 Pulse Rate [ From Monitor] Respiratory 20 20 20 Rate Blood Pressure 113/65 113/65 113/65 O2 Sat by Pulse 99 99 99 Oximetry 10/17/20 10/17/20 10/17/20 06:50 07:00 07:10 Temperature Pulse Rate 68 66 65 Pulse Rate [ From Monitor] Respiratory 20 20 20 Rate Blood Pressure 113/65 101/55 101/55 O2 Sat by Pulse 99 100 100 Oximetry 10/17/20 10/17/20 10/17/20 07:20 07:30 07:40 Temperature Pulse Rate 61 60 63 Pulse Rate [ From Monitor] Respiratory 20 20 20 Rate Blood Pressure 101/55 101/55 101/55 O2 Sat by Pulse 100 100 100 Oximetry 10/17/20 10/17/20 10/17/20 07:42 07:50 08:00 Temperature 98.9 F Pulse Rate 74 62 64 Pulse Rate [ 70 From Monitor] Respiratory 20 20 20 Rate Blood Pressure 113/65 101/55 109/61 O2 Sat by Pulse 99 100 100 Oximetry 10/17/20 10/17/20 10/17/20 08:10 08:20 08:30 Temperature Pulse Rate 69 73 80 Pulse Rate [ From Monitor] Respiratory 20 21 18 Rate Blood Pressure 109/61 101/55 101/55 O2 Sat by Pulse 99 99 99 Oximetry 10/17/20 10/17/20 10/17/20 08:40 08:50 09:00 Temperature Pulse Rate 106 H 100 H 112 H Pulse Rate [ From Monitor] Respiratory 21 9 L 14 Rate Blood Pressure 101/55 101/55 101/55 O2 Sat by Pulse 100 95 92 Oximetry 10/17/20 10/17/20 10/17/20 09:10 09:20 09:30 Temperature Pulse Rate 108 H 116 H 127 H Pulse Rate [ From Monitor] Respiratory 20 18 21 Rate Blood Pressure 141/87 141/87 141/87 O2 Sat by Pulse 97 97 95 Oximetry 10/17/20 10/17/20 10/17/20 09:40 09:50 10:00 Temperature Pulse Rate 120 H 124 H 123 H Pulse Rate [ From Monitor] Respiratory 16 17 16 Rate Blood Pressure 141/87 141/87 120/72 O2 Sat by Pulse 95 95 95 Oximetry 10/17/20 10/17/20 10/17/20 10:10 10:20 10:30 Temperature Pulse Rate 124 H 123 H 118 H Pulse Rate [ From Monitor] Respiratory 13 16 16 Rate Blood Pressure 120/72 141/87 141/87 O2 Sat by Pulse 95 98 97 Oximetry 10/17/20 10/17/20 10/17/20 10:40 10:50 11:00 Temperature Pulse Rate 122 H 117 H 120 H Pulse Rate [ From Monitor] Respiratory 16 19 21 Rate Blood Pressure 141/87 141/87 111/77 O2 Sat by Pulse 97 98 94 Oximetry 10/17/20 10/17/20 10/17/20 11:10 11:20 11:21 Temperature Pulse Rate 117 H 120 H 123 H Pulse Rate [ From Monitor] Respiratory 19 18 16 Rate Blood Pressure 111/77 111/77 120/72 O2 Sat by Pulse 97 97 95 Oximetry 10/17/20 10/17/20 10/17/20 11:30 11:40 11:50 Temperature Pulse Rate 120 H 117 H 113 H Pulse Rate [ From Monitor] Respiratory 18 17 19 Rate Blood Pressure 111/77 111/77 111/77 O2 Sat by Pulse 97 97 96 Oximetry 10/17/20 10/17/20 10/17/20 12:00 12:10 12:20 Temperature 100.2 F H Pulse Rate 117 H 117 H 112 H Pulse Rate [ 99 H From Monitor] Respiratory 21 19 17 Rate Blood Pressure 120/73 120/73 120/73 O2 Sat by Pulse 96 97 98 Oximetry 10/17/20 10/17/20 10/17/20 12:30 12:40 12:50 Temperature Pulse Rate 112 H 114 H 107 H Pulse Rate [ From Monitor] Respiratory 21 14 20 Rate Blood Pressure 120/73 120/73 120/73 O2 Sat by Pulse 94 97 97 Oximetry 10/17/20 10/17/20 10/17/20 13:00 13:10 13:20 Temperature Pulse Rate 101 H 99 H 99 H Pulse Rate [ From Monitor] Respiratory 20 20 20 Rate Blood Pressure 104/62 104/62 104/62 O2 Sat by Pulse 97 98 97 Oximetry 10/17/20 10/17/20 10/17/20 13:30 13:40 13:50 Temperature Pulse Rate 99 H 101 H 102 H Pulse Rate [ From Monitor] Respiratory 20 22 20 Rate Blood Pressure 104/62 104/62 104/62 O2 Sat by Pulse 98 97 97 Oximetry 10/17/20 10/17/20 10/17/20 14:00 14:10 14:20 Temperature Pulse Rate 101 H 99 H 97 H Pulse Rate [ From Monitor] Respiratory 20 15 20 Rate Blood Pressure 111/67 111/67 111/67 O2 Sat by Pulse 97 97 98 Oximetry 10/17/20 10/17/20 10/17/20 14:30 14:40 14:50 Temperature Pulse Rate 98 H 99 H 100 H Pulse Rate [ From Monitor] Respiratory 21 20 20 Rate Blood Pressure 111/67 111/67 111/67 O2 Sat by Pulse 97 97 98 Oximetry 10/17/20 15:00 Temperature Pulse Rate 98 H Pulse Rate [ From Monitor] Respiratory 20 Rate Blood Pressure 108/69 O2 Sat by Pulse 98 Oximetry Constitutional: no acute distress, other (elderly obese female without significant patient / ventilator dyssynchrony) Eyes: non-icteric ENT: oropharynx moist, other (ETT 24 cm [place]) Neck: supple, no lymphadenopathy, no JVD Effort: normal Ascultation: Bilateral: diminished breath sounds, rhonchi (scant) Percussion: Bilateral: not dull Cardiovascular: regular rate and rhythm Gastrointestinal: normoactive bowel sounds, soft, non-tender, non-distended (protuberant) Integumentary: normal Extremities: no cyanosis, no edema, pink and warm, pulses normal Neurologic: non-focal exam (grossly), pupils equal and round, other (slow rhythmic movements of her head continuously ) Psychiatric: other (sedated) CBC and BMP: 10/17/20 09:23 10/17/20 09:23 ABG, PT/INR, D-dimer: ABG ABG pH 7.343 (7.320-7.450) 10/17/20 10:46 POC ABG pCO2 40.9 mmHg (32.0-48.0) 10/17/20 10:46 ABG pCO2 32.6 mm Hg 10/17/20 04:08 POC ABG pO2 71.6 mmHg (83-108) L 10/17/20 10:46 ABG pO2 96.6 mm Hg (80.0-90.0) H 10/17/20 04:08 POC ABG HCO3 21.7 10/17/20 10:46 ABG O2 Saturation 97.6 % (95.0-99.0) 10/17/20 04:08 PT/INR, D-dimer PT 14.0 Sec. (12.2-14.9) 10/14/20 13:36 INR 1.07 (0.87-1.13) 10/14/20 13:36 Abnormal lab findings: Abnormal Labs 10/14/20 10/14/20 10/14/20 13:36 13:36 14:22 WBC 14.7 H MCHC 35 H Lymph % (Auto) [place] % (Auto) Lymph # (Auto) [place] # (Auto) Seg Neutrophils % Seg Neuts % (Manual) 89.0 H Lymphocytes % (Manual) 4.0 L Seg Neutrophils # Seg Neutrophils # Man 13.1 H Lymphocytes # (Manual) 0.6 L ABG pH 7.298 L POC ABG pCO2 POC ABG pO2 ABG pO2 285.8 H ABG O2 Saturation 99.5 H ABG Base Excess -4.1 L ABG Oxyhemoglobin ABG Sodium ABG Glucose Sodium 131 L Chloride 97.2 L Carbon Dioxide BUN Glucose 170 H POC Glucose Arterial Blood Glucose 10/14/20 10/15/20 10/15/20 17:09 03:35 04:33 WBC MCHC 36 H Lymph % (Auto) 9.6 L [place] % (Auto) 10.1 H Lymph # (Auto) 1.0 L [place] # (Auto) 1.1 H Seg Neutrophils % 79.8 H Seg Neuts % (Manual) Lymphocytes % (Manual) Seg Neutrophils # 8.4 H Seg Neutrophils # Man Lymphocytes # (Manual) ABG pH 7.536 H POC ABG pCO2 POC ABG pO2 ABG pO2 185.0 H 110.2 H ABG O2 Saturation 99.2 H ABG Base Excess ABG Oxyhemoglobin ABG Sodium ABG Glucose Sodium Chloride Carbon Dioxide BUN Glucose POC Glucose Arterial Blood Glucose 10/15/20 10/15/20 10/16/20 04:33 13:12 00:09 WBC MCHC Lymph % (Auto) [place] % (Auto) Lymph # (Auto) [place] # (Auto) Seg Neutrophils % Seg Neuts % (Manual) Lymphocytes % (Manual) Seg Neutrophils # Seg Neutrophils # Man Lymphocytes # (Manual) ABG pH 7.297 L POC ABG pCO2 51.0 H POC ABG pO2 56.7 L ABG pO2 ABG O2 Saturation ABG Base Excess ABG Oxyhemoglobin 84.6 L ABG Sodium 134.4 L ABG Glucose 118 H Sodium Chloride Carbon Dioxide BUN Glucose 120 H POC Glucose 114 H Arterial Blood Glucose 118 H 10/16/20 10/16/20 10/17/20 05:42 05:46 04:08 WBC MCHC Lymph % (Auto) [place] % (Auto) Lymph # (Auto) [place] # (Auto) Seg Neutrophils % Seg Neuts % (Manual) Lymphocytes % (Manual) Seg Neutrophils # Seg Neutrophils # Man Lymphocytes # (Manual) ABG pH POC ABG pCO2 POC ABG pO2 ABG pO2 96.6 H ABG O2 Saturation ABG Base Excess ABG Oxyhemoglobin ABG Sodium 132.6 L ABG Glucose 112 H Sodium Chloride Carbon Dioxide BUN Glucose POC Glucose 106 H Arterial Blood Glucose 112 H 10/17/20 10/17/20 10/17/20 09:23 09:23 10:46 WBC 12.3 H MCHC Lymph % (Auto) [place] % (Auto) Lymph # (Auto) [place] # (Auto) Seg Neutrophils % Seg Neuts % (Manual) Lymphocytes % (Manual) Seg Neutrophils # Seg Neutrophils # Man Lymphocytes # (Manual) ABG pH POC ABG pCO2 POC ABG pO2 71.6 L ABG pO2 ABG O2 Saturation ABG Base Excess ABG Oxyhemoglobin 92.6 L ABG Sodium 134.8 L ABG Glucose 105 H Sodium Chloride Carbon Dioxide 21 L BUN 19 H Glucose POC Glucose Arterial Blood Glucose 105 H Chest x-ray: other (no acute process) Allied health notes reviewed: nursing
[2020-10-17] MEDS: LACOSAMIDE 200 MG in SODIUM CHLORIDE 0.9% 100 ML IV SCH (16:16)
[2020-10-17] MEDS: ACETAMINOPHEN 325 MG/10.15 ML ORAL LIQD UNIT DOSE FEEDTUBE PRN (17:45)
[2020-10-17] MEDS: PHENYTOIN 100 MG/2 ML VIAL IV SCH (21:07)
[2020-10-17] MEDS ORDERED: SODIUM CHLORIDE 0.9% 250ML 250 ML IV ONE (22:17)
--- NOTE | 2020-10-18 02:56 | XRay Report ---
CHEST 1 VIEW 10/18/2020 1:47 AM INDICATION / CLINICAL INFORMATION: follow up respiratory failure. COMPARISON: 10/17/2020 FINDINGS: SUPPORT DEVICES: Stable, satisfactory device positioning. HEART / MEDIASTINUM: Stable. LUNGS / PLEURA: Interval development left basilar subsegmental atelectasis. No pneumothorax. ADDITIONAL FINDINGS: No significant additional findings. IMPRESSION: 1. Interval development of left basilar subsegmental atelectasis. Signer Name: Dio Keenan MD Signed: 10/18/2020 2:52 AM Workstation Name: [id number]
[2020-10-18] MEDS: LORazepam 2 MG/ML VIAL IV PRN (04:37)
[2020-10-18] MEDS: LACOSAMIDE 200 MG in SODIUM CHLORIDE 0.9% 100 ML IV SCH ×2 (04:37→15:14)
[2020-10-18] MEDS: MIDAZOLAM 100 MG in SODIUM CHLORIDE 0.9% 80 ML IV SCH (04:38)
[2020-10-18] MEDS: PHENYTOIN 100 MG/2 ML VIAL IV SCH ×3 (06:45→21:08)
--- NOTE | 2020-10-18 07:35 | Progress Note ---
Assessment and Plan The high probability of a clinically significant, sudden or life threatening deterioration of the [cardiac, pulmonary, renal] system(s) required my full and direct attention, intervention and personal management. The aggregate critical care time was [40] minutes. This time is in addition to time spent performing reported procedures but includes the following: [x] Data Review and interpretation [x] Patient assessment and monitoring of vital signs [x] Documentation [x] Medication orders and management (1) Acute respiratory failure Current Visit: Yes Status: Acute Qualifiers: Respiratory failure complication: hypoxia Qualified Code(s): J96.01 - Acute respiratory failure with hypoxia Plan to address problem: Patient intubated and on ventilatory support, daily spontaneous breathing trials, sedation holiday, wean vent as tolerated, critical care team consulted. (2) Status epilepticus Current Visit: Yes Status: Acute Plan to address problem: Patient on Keppra 50 mg twice a day Vimpat and phenytoin (3) Hypertensive emergency Current Visit: Yes Status: Acute Plan to address problem: Monitor blood pressure every shift, continue IV hydralazine, (4) Acute encephalopathy Current Visit: Yes Status: Acute Plan to address problem: CT head, neuro check, seizure precautions, aspiration precautions, (5) Leukocytosis Current Visit: Yes Status: Acute Plan to address problem: Chest x-ray, CBC, urinalysis, empiric IV antibiotic therapy x1 dose, repeat CBC in a.m. (6) DVT prophylaxis Current Visit: Yes Status: Acute Plan to address problem: SCD to bilateral lower extremities while in bed, prophylactic anticoagulation (7) Advance care planning Current Visit: Yes Status: Acute Plan to address problem: Disease education conducted, patient is full code, prognosis discussed, +30 minutes. Subjective Date of service: 10/17/20 Principal diagnosis: Ac hypoxemic & hypercapnic resp failure; Status epilepticus; HTNsive emerge Interval history: 65 YO Female with Obesity, HTN, presents to ED for evaluation. Patient is intubated and on ventilatory support at the time of my evaluation and is unable to provide history. Patient history is taken from EMS staff, ED staff. As per staff the patient was found down and unresponsive by her neighbor. Patient neighbor describe seizure-like activity. EMS was notified and upon arrival the patient was found to be in distress and actively seizing. Patient treated with 2 mg of Ativan which terminated the seizures. The patient was subsequently transported to [facility] for further evaluation and care of the aforementioned symptoms. Patient was seen and evaluated in the emergency department. All lab and imaging studies reviewed. Patient found to have symptoms consistent with status epilepticus which was evidenced by recurrent seizures in the emergency department with concomitant decrease in pulse oximetry to 84% on room air. The patient was also found to have hypertensive emergency with a blood pressure of 223/143. The patient was deemed unable to protect her airway and was intubated for airway protection. Patient also found to have acute encephalopathy. Patient admitted to ICU due to increased risk of decompensation. Critical care team consulted in ED. No prior admission for review. No medication listed at time of admission for reconciliation. Advanced care planning conducted in ED. Objective - Exam Narrative Exam: Intubated - Constitutional Vitals: Vital Signs - 12hr 10/17/20 10/17/20 10/17/20 19:40 19:50 20:00 Temperature 97.6 F Pulse Rate 72 70 69 Pulse Rate [ 98 H From Monitor] Respiratory 20 20 20 Rate Blood Pressure 88/55 88/55 85/53 O2 Sat by Pulse 98 98 98 Oximetry 10/17/20 10/17/20 10/17/20 20:10 20:20 20:30 Temperature Pulse Rate 72 69 69 Pulse Rate [ From Monitor] Respiratory 20 20 20 Rate Blood Pressure 85/53 95/58 95/58 O2 Sat by Pulse 98 98 98 Oximetry 10/17/20 10/17/20 10/17/20 20:40 20:50 21:00 Temperature Pulse Rate 69 70 67 Pulse Rate [ From Monitor] Respiratory 20 20 20 Rate Blood Pressure 95/58 95/58 97/64 O2 Sat by Pulse 98 100 99 Oximetry 10/17/20 10/17/20 10/17/20 21:10 21:20 21:30 Temperature Pulse Rate 65 66 68 Pulse Rate [ From Monitor] Respiratory 20 20 20 Rate Blood Pressure 97/64 97/64 97/64 O2 Sat by Pulse 100 100 100 Oximetry 10/17/20 10/17/20 10/17/20 21:40 21:50 22:00 Temperature Pulse Rate 67 68 64 Pulse Rate [ From Monitor] Respiratory 20 20 20 Rate Blood Pressure 97/64 97/64 81/40 O2 Sat by Pulse 99 99 99 Oximetry 11/16/20 11/16/20 11/16/20 22:10 22:20 22:30 Temperature Pulse Rate 65 63 61 Pulse Rate [ From Monitor] Respiratory 20 20 20 Rate Blood Pressure 78/45 78/45 78/45 O2 Sat by Pulse 99 99 99 Oximetry 10/17/20 10/17/20 10/17/20 22:40 22:51 23:00 Temperature Pulse Rate 60 60 60 Pulse Rate [ From Monitor] Respiratory 20 20 20 Rate Blood Pressure 75/46 86/54 92/57 O2 Sat by Pulse 99 99 100 Oximetry 10/17/20 10/17/20 10/17/20 23:10 23:20 23:22 Temperature Pulse Rate 61 62 62 Pulse Rate [ From Monitor] Respiratory 20 20 19 Rate Blood Pressure 97/59 97/59 97/59 O2 Sat by Pulse 100 100 100 Oximetry 10/17/20 10/17/20 10/17/20 23:30 23:40 23:50 Temperature Pulse Rate 63 62 63 Pulse Rate [ From Monitor] Respiratory 20 20 20 Rate Blood Pressure 97/59 97/59 97/59 O2 Sat by Pulse 100 100 100 Oximetry 10/18/20 10/18/20 10/18/20 00:00 00:10 00:13 Temperature 97.7 F Pulse Rate 72 64 62 Pulse Rate [ 72 From Monitor] Respiratory 17 20 Rate Blood Pressure 93/62 93/62 97/59 O2 Sat by Pulse 100 100 100 Oximetry 10/18/20 10/18/20 10/18/20 00:20 00:30 00:40 Temperature Pulse Rate 64 64 64 Pulse Rate [ From Monitor] Respiratory 20 20 20 Rate Blood Pressure 93/62 93/62 93/62 O2 Sat by Pulse 100 100 100 Oximetry 10/18/20 10/18/20 10/18/20 00:50 01:00 01:10 Temperature Pulse Rate 62 61 63 Pulse Rate [ From Monitor] Respiratory 20 20 20 Rate Blood Pressure 93/62 96/59 96/59 O2 Sat by Pulse 100 100 100 Oximetry 10/18/20 10/18/20 10/18/20 01:20 01:30 01:40 Temperature Pulse Rate 62 61 63 Pulse Rate [ From Monitor] Respiratory 20 20 20 Rate Blood Pressure 96/59 96/59 96/59 O2 Sat by Pulse 100 100 100 Oximetry 10/18/20 10/18/20 10/18/20 01:50 02:00 02:10 Temperature Pulse Rate 62 62 61 Pulse Rate [ From Monitor] Respiratory 20 20 20 Rate Blood Pressure 96/59 100/62 100/62 O2 Sat by Pulse 100 100 100 Oximetry 10/18/20 10/18/20 10/18/20 02:20 02:30 02:40 Temperature Pulse Rate 61 79 68 Pulse Rate [ From Monitor] Respiratory 20 21 19 Rate Blood Pressure 100/62 100/62 100/62 O2 Sat by Pulse 100 100 100 Oximetry 10/18/20 10/18/20 10/18/20 02:50 03:00 03:10 Temperature Pulse Rate 68 69 67 Pulse Rate [ From Monitor] Respiratory 20 20 20 Rate Blood Pressure 100/62 109/57 109/57 O2 Sat by Pulse 100 100 100 Oximetry 10/18/20 10/18/20 10/18/20 03:20 03:30 03:40 Temperature Pulse Rate 65 75 73 Pulse Rate [ From Monitor] Respiratory 20 21 20 Rate Blood Pressure 109/57 109/57 109/57 O2 Sat by Pulse 100 100 100 Oximetry 10/18/20 10/18/20 10/18/20 03:50 04:00 04:10 Temperature 97.6 F Pulse Rate 75 73 72 Pulse Rate [ 73 From Monitor] Respiratory 20 21 21 Rate Blood Pressure 109/57 120/48 120/48 O2 Sat by Pulse 100 100 99 Oximetry 10/18/20 10/18/20 10/18/20 04:20 04:30 04:40 Temperature Pulse Rate 74 86 75 Pulse Rate [ From Monitor] Respiratory 21 15 20 Rate Blood Pressure 120/48 120/48 120/48 O2 Sat by Pulse 100 96 99 Oximetry 10/18/20 10/18/20 10/18/20 04:50 05:00 05:10 Temperature Pulse Rate 75 68 66 Pulse Rate [ From Monitor] Respiratory 21 20 20 Rate Blood Pressure 120/48 112/64 112/64 O2 Sat by Pulse 99 99 99 Oximetry 10/18/20 10/18/20 10/18/20 05:20 05:30 05:40 Temperature Pulse Rate 66 64 64 Pulse Rate [ From Monitor] Respiratory 20 20 20 Rate Blood Pressure 112/64 112/64 112/64 O2 Sat by Pulse 100 100 100 Oximetry 10/18/20 10/18/20 10/18/20 05:50 06:00 06:10 Temperature Pulse Rate 63 63 63 Pulse Rate [ From Monitor] Respiratory 20 20 20 Rate Blood Pressure 112/64 105/62 105/62 O2 Sat by Pulse 100 100 100 Oximetry 10/18/20 10/18/20 06:20 06:30 Temperature Pulse Rate 62 60 Pulse Rate [ From Monitor] Respiratory 20 20 Rate Blood Pressure 105/62 105/62 O2 Sat by Pulse 100 100 Oximetry General appearance: Present: severe distress, well-nourished - EENT Eyes: PERRL, EOM intact ENT: hearing intact, clear oral mucosa Ears: bilateral: normal - Neck Neck: supple, normal ROM - Respiratory Respiratory effort: normal Respiratory: bilateral: CTA - Breasts Breasts: normal - Cardiovascular Heart rate: 78 Rhythm: regular Heart Sounds: Present: S1 & S2. Absent: gallop, rub Extremities: pulses intact, No edema, normal color, Full ROM - Gastrointestinal General gastrointestinal: Present: soft, non-tender, non-distended, normal bowel sounds - Genitourinary Female genitourinary: normal - Integumentary Integumentary: clear, warm, dry - Musculoskeletal Musculoskeletal: strength equal bilaterally, generalized weakness - Neurologic Neurologic: moves all extremities, other (Patient intubated`) - Psychiatric Psychiatric: other (Patient intubated) - Allied health notes Allied health notes reviewed: nursing, case management - Labs CBC & Chem 7: 10/30/20 07:53 10/30/20 07:53 Labs: Abnormal lab results 10/17/20 10/17/20 10/17/20 Range/Units 09:23 09:23 10:46 WBC 12.3 H (4.5-11.0) K/mm3 POC ABG pO2 71.6 L (83-108) mmHg ABG Oxyhemoglobin 92.6 L (94-98) ABG Sodium 134.8 L (136.0-145.0) mmol/L ABG Glucose 105 H (65-95) mg/dL Carbon Dioxide 21 L (22-30) mmol/L BUN 19 H (7-17) mg/dL POC Glucose (70-105) mg/dL Arterial Blood Glucose 105 H (65-95) mg/dL 10/17/20 10/18/20 Range/Units 23:43 04:18 WBC (4.5-11.0) K/mm3 POC ABG pO2 81.9 L (83-108) mmHg ABG Oxyhemoglobin (94-98) ABG Sodium 133.3 L (136.0-145.0) mmol/L ABG Glucose 125 H (65-95) mg/dL Carbon Dioxide (22-30) mmol/L BUN (7-17) mg/dL POC Glucose 118 H (70-105) mg/dL Arterial Blood Glucose 125 H (65-95) mg/dL HEART Score - HEART Score Troponin: Troponin T 0.015 ng/mL (0.00-0.029) 10/14/20 13:36
[2020-10-18 08:56] LABS: Basophils # (Auto) 0.1 K/mm3 (0.0-0.1); Basophils % (Auto) 0.7 % (0.0-1.8); Eosinophils # (Auto) 0.2 K/mm3 (0.0-0.4); Eosinophils % (Auto) 2.6 % (0.0-4.3); Hematocrit 35.7 % (30.3-42.9); Lymphocytes # (Auto) 1.2 K/mm3 (1.2-5.4); Lymphocytes % (Auto) 12.4 % (13.4-35.0); Mean Corpuscular HGB Conc 34 % (30-34); Mean Corpuscular Volume 84 fl (79-97); Monocytes # (Auto) 0.7 K/mm3 (0.0-0.8); Monocytes % (Auto) 7.3 % (0.0-7.3); Platelet Count 241 K/mm3 (140-440); Red Blood Count 4.24 M/mm3 (3.65-5.03); Red Cell Distribution Width 13.9 % (13.2-15.2)
[2020-10-18 09:18] LABS: BUN/Creatinine Ratio 26; Blood Urea Nitrogen 21 mg/dL (7-17); Calcium 8.8 mg/dL (8.4-10.2); Hemolysis Index 14
[2020-10-18] MEDS: QUEtiapine 200 MG TAB PO SCH ×2 (10:23→21:07)
[2020-10-18] MEDS: FAMOTIDINE 20 MG/2 ML INJ IV SCH ×2 (10:23→21:06)
[2020-10-18] MEDS: HEPARIN 5,000 UNIT/1 ML VIAL SUB-Q SCH ×2 (10:23→21:06)
[2020-10-18] MEDS: levETIRAcetam 1,500 MG in DEXTROSE 5% IN WATER 100 ML IV SCH ×2 (10:24→22:39)
--- NOTE | 2020-10-18 15:02 | Progress Note ---
Assessment and Plan Acute hypoxemic and hypercapnic respiratory failure. Acute encephalopathy (Toxic / metabolic). Status epilepticus. Hypertensive emergency at presentation. History of a brain aneurysm repair. Obesity. History of hypertension. Leukocytosis. Mild hyponatremia. Hyperglycemia. - begin bowel regimen with colace & miralax (also Mag citrate 300 mls po X 1 now) - stopped Versed drip - use fentanyl for sedation - daily SAT's and SBT assessment as tolerated - continue care as below otherwise; - continue Vimpat & Keppra (Adjust per neurologist) - continue enteral nutrition at goal rate as tolerated - continue Seroquel 200 mg p.o. bid to spare IV sedatives - continue to wean supplemental oxygen for target O2 sat's > 92% acutely - VAP bundle addressed - continue lung protective strategies - continue bronchodilators with pulmonary hygiene per RT - wean per pulmonary driven protocols otherwise - sedation prn for target RASS -1 to -2 - begin enteral nutritional support at goal rate as tolerated - empiric AB's coverage per ID rec's otherwise - accuchecks with glycemic control per SSI (While critically ill target blood glucose of 140-180 mg/dL; avoid hypoglycemia) - avoid nephrotoxins, renally dose all medications - continue Keppra as AED - continue to avoid benzodiazepine's, reduce the possibility of delirium - prn analgesia per CPOT score - Maintenance of sleep-wake cycle, avoid delirium - continue to avoid benzodiazepine's, reduce the possibility of delirium - aspiration precautions - G.I. & VTE prophylaxis - PT/OT/ROM exercises - continue mobility protocols for pressure ulcer prophylaxis - Monitor hemodynamics closely - continue other care per attending / other consultants - discharge planning ongoing concurrently .... Re-evaluate in am & prn CONDITION: CRITICAL PROGNOSIS: GUARDED CODE STATUS: FULL CODE The high probability of a clinically significant, sudden or life-threatening deterioration of the [respiratory, cardiovascular & neurologic] system(s) required my full and direct attention, intervention and personal management. The aggregate critical care time was [33] minutes without overlap. Time includes spent on; [x] Data Review and interpretation [x] Patient assessment and monitoring of vital signs [x] Documentation [x] Medication orders and management Subjective Date of service: 10/18/20 Principal diagnosis: Ac hypoxemic & hypercapnic resp failure; Status epilepticus; HTNsive emerge Interval history: Patient is seen today for: Ac hypoxemic and hypercapnic resp failure; Ac. encephalopathy; Status epilepticus; HTNsive emergency; History of a brain aneurysm repair; Obesity Seen and examined at bedside; 24hour events reviewed; nursing and respiratory care staff consulted; no adverse overnight events reported to me; resting peacef ully in bed; seen by neurologist and Keppra / Vimpat dosing increased. Also dilantin added; EEG without evidence of continuous seizures; she is responding appropriately; No N/V/F/C; + constipation Objective Vital Signs - 12hr 10/18/20 10/18/20 10/18/20 03:10 03:20 03:30 Temperature Pulse Rate 67 65 75 Pulse Rate [ From Monitor] Respiratory 20 20 21 Rate Blood Pressure 109/57 109/57 109/57 O2 Sat by Pulse 100 100 100 Oximetry 10/18/20 10/18/20 10/18/20 03:40 03:50 04:00 Temperature 97.6 F Pulse Rate 73 75 73 Pulse Rate [ 73 From Monitor] Respiratory 20 20 21 Rate Blood Pressure 109/57 109/57 120/48 O2 Sat by Pulse 100 100 100 Oximetry 10/18/20 10/18/20 10/18/20 04:10 04:20 04:30 Temperature Pulse Rate 72 74 86 Pulse Rate [ From Monitor] Respiratory 21 21 15 Rate Blood Pressure 120/48 120/48 120/48 O2 Sat by Pulse 99 100 96 Oximetry 10/18/20 10/18/20 10/18/20 04:40 04:50 05:00 Temperature Pulse Rate 75 75 68 Pulse Rate [ From Monitor] Respiratory 20 21 20 Rate Blood Pressure 120/48 120/48 112/64 O2 Sat by Pulse 99 99 99 Oximetry 10/18/20 10/18/20 10/18/20 05:10 05:20 05:30 Temperature Pulse Rate 66 66 64 Pulse Rate [ From Monitor] Respiratory 20 20 20 Rate Blood Pressure 112/64 112/64 112/64 O2 Sat by Pulse 99 100 100 Oximetry 10/18/20 10/18/20 10/18/20 05:40 05:50 06:00 Temperature Pulse Rate 64 63 63 Pulse Rate [ From Monitor] Respiratory 20 20 20 Rate Blood Pressure 112/64 112/64 105/62 O2 Sat by Pulse 100 100 100 Oximetry 10/18/20 10/18/20 10/18/20 06:10 06:20 06:30 Temperature Pulse Rate 63 62 60 Pulse Rate [ From Monitor] Respiratory 20 20 20 Rate Blood Pressure 105/62 105/62 105/62 O2 Sat by Pulse 100 100 100 Oximetry 10/18/20 10/18/20 10/18/20 06:40 06:50 07:00 Temperature Pulse Rate 61 61 60 Pulse Rate [ From Monitor] Respiratory 20 20 20 Rate Blood Pressure 105/62 105/62 101/63 O2 Sat by Pulse 100 100 100 Oximetry 10/18/20 10/18/20 10/18/20 07:10 07:20 07:30 Temperature Pulse Rate 61 67 64 Pulse Rate [ From Monitor] Respiratory 20 20 20 Rate Blood Pressure 101/63 101/63 101/63 O2 Sat by Pulse 100 100 100 Oximetry 10/18/20 10/18/20 10/18/20 07:40 07:50 08:00 Temperature 98.5 F Pulse Rate 66 66 68 Pulse Rate [ 72 From Monitor] Respiratory 16 20 20 Rate Blood Pressure 101/63 101/63 116/60 O2 Sat by Pulse 99 99 99 Oximetry 10/18/20 10/18/20 10/18/20 08:06 08:10 08:20 Temperature Pulse Rate 67 70 70 Pulse Rate [ From Monitor] Respiratory 19 20 Rate Blood Pressure 116/60 116/60 116/60 O2 Sat by Pulse 100 98 99 Oximetry 10/18/20 10/18/20 10/18/20 08:30 08:40 08:50 Temperature Pulse Rate 72 77 75 Pulse Rate [ From Monitor] Respiratory 20 20 18 Rate Blood Pressure 116/60 116/60 116/60 O2 Sat by Pulse 99 99 99 Oximetry 10/18/20 10/18/20 10/18/20 09:00 09:10 09:20 Temperature Pulse Rate 76 74 73 Pulse Rate [ From Monitor] Respiratory 20 18 17 Rate Blood Pressure 114/61 114/61 114/61 O2 Sat by Pulse 99 98 100 Oximetry 10/18/20 10/18/20 10/18/20 09:30 09:40 09:50 Temperature Pulse Rate 73 75 73 Pulse Rate [ From Monitor] Respiratory 20 17 21 Rate Blood Pressure 114/61 114/61 114/61 O2 Sat by Pulse 99 99 99 Oximetry 10/18/20 10/18/20 10/18/20 10:00 10:10 10:20 Temperature Pulse Rate 72 71 69 Pulse Rate [ From Monitor] Respiratory 21 20 20 Rate Blood Pressure 110/63 110/63 110/63 O2 Sat by Pulse 99 99 100 Oximetry 10/18/20 10/18/20 10/18/20 10:30 10:40 10:50 Temperature Pulse Rate 70 69 78 Pulse Rate [ From Monitor] Respiratory 20 20 21 Rate Blood Pressure 110/63 110/63 110/63 O2 Sat by Pulse 100 99 100 Oximetry 10/18/20 10/18/20 10/18/20 11:00 11:10 11:20 Temperature Pulse Rate 74 100 H 86 Pulse Rate [ From Monitor] Respiratory 20 21 20 Rate Blood Pressure 113/65 113/65 113/65 O2 Sat by Pulse 100 99 100 Oximetry 10/18/20 10/18/20 10/18/20 11:30 11:40 11:50 Temperature Pulse Rate 98 H 90 89 Pulse Rate [ From Monitor] Respiratory 20 20 20 Rate Blood Pressure 113/65 113/65 113/65 O2 Sat by Pulse 99 100 100 Oximetry 10/18/20 10/18/20 10/18/20 12:00 12:10 12:20 Temperature 99.0 F Pulse Rate 87 84 90 Pulse Rate [ 85 From Monitor] Respiratory 18 22 20 Rate Blood Pressure 103/65 103/65 103/65 O2 Sat by Pulse 100 100 100 Oximetry 10/18/20 10/18/20 10/18/20 12:30 12:40 12:42 Temperature Pulse Rate 91 H 89 88 Pulse Rate [ From Monitor] Respiratory 19 20 Rate Blood Pressure 103/65 103/65 103/65 O2 Sat by Pulse 100 100 100 Oximetry 10/18/20 10/18/20 10/18/20 12:50 13:00 13:10 Temperature Pulse Rate 86 89 88 Pulse Rate [ From Monitor] Respiratory 20 18 19 Rate Blood Pressure 103/65 103/65 127/58 O2 Sat by Pulse 100 100 99 Oximetry 10/18/20 10/18/20 10/18/20 13:20 13:30 13:40 Temperature Pulse Rate 86 85 83 Pulse Rate [ From Monitor] Respiratory 20 20 20 Rate Blood Pressure 127/58 127/58 127/58 O2 Sat by Pulse 100 99 100 Oximetry 10/18/20 10/18/20 10/18/20 13:50 14:00 14:10 Temperature Pulse Rate 85 88 90 Pulse Rate [ From Monitor] Respiratory 20 20 20 Rate Blood Pressure 127/58 120/70 120/70 O2 Sat by Pulse 100 99 100 Oximetry Constitutional: no acute distress, other (elderly obese female without significant patient / ventilator dyssynchrony) Eyes: non-icteric ENT: oropharynx moist, other (ETT 24 cm NATIVIDAD) Neck: supple, no lymphadenopathy, no JVD Effort: normal Ascultation: Bilateral: diminished breath sounds, rhonchi (scant) Percussion: Bilateral: not dull Cardiovascular: regular rate and rhythm Gastrointestinal: normoactive bowel sounds, soft, non-tender, non-distended (protuberant) Integumentary: normal Extremities: no cyanosis, no edema, pink and warm, pulses normal Neurologic: non-focal exam (grossly), pupils equal and round, other (sedated but responds appropriately) Psychiatric: other (sedated) CBC and BMP: 10/18/20 08:32 10/18/20 08:32 ABG, PT/INR, D-dimer: ABG ABG pH 7.399 (7.320-7.450) 10/18/20 04:18 POC ABG pCO2 36.8 mmHg (32.0-48.0) 10/18/20 04:18 ABG pCO2 32.6 mm Hg 10/17/20 04:08 POC ABG pO2 81.9 mmHg (83-108) L 10/18/20 04:18 ABG pO2 96.6 mm Hg (80.0-90.0) H 10/17/20 04:08 POC ABG HCO3 22.2 10/18/20 04:18 ABG O2 Saturation 97.6 % (95.0-99.0) 10/17/20 04:08 PT/INR, D-dimer PT 14.0 Sec. (12.2-14.9) 10/14/20 13:36 INR 1.07 (0.87-1.13) 10/14/20 13:36 Abnormal lab findings: Abnormal Labs 10/14/20 10/14/20 10/14/20 13:36 13:36 14:22 WBC 14.7 H MCHC 35 H Lymph % (Auto) [place] % (Auto) Lymph # (Auto) [place] # (Auto) Seg Neutrophils % Seg Neuts % (Manual) 89.0 H Lymphocytes % (Manual) 4.0 L Seg Neutrophils # Seg Neutrophils # Man 13.1 H Lymphocytes # (Manual) 0.6 L ABG pH 7.298 L POC ABG pCO2 POC ABG pO2 ABG pO2 285.8 H ABG O2 Saturation 99.5 H ABG Base Excess -4.1 L ABG Oxyhemoglobin ABG Sodium ABG Glucose Sodium 131 L Chloride 97.2 L Carbon Dioxide BUN Glucose 170 H POC Glucose Arterial Blood Glucose Phenytoin 10/14/20 10/15/20 10/15/20 17:09 03:35 04:33 WBC MCHC 36 H Lymph % (Auto) 9.6 L [place] % (Auto) 10.1 H Lymph # (Auto) 1.0 L [place] # (Auto) 1.1 H Seg Neutrophils % 79.8 H Seg Neuts % (Manual) Lymphocytes % (Manual) Seg Neutrophils # 8.4 H Seg Neutrophils # Man Lymphocytes # (Manual) ABG pH 7.536 H POC ABG pCO2 POC ABG pO2 ABG pO2 185.0 H 110.2 H ABG O2 Saturation 99.2 H ABG Base Excess ABG Oxyhemoglobin ABG Sodium ABG Glucose Sodium Chloride Carbon Dioxide BUN Glucose POC Glucose Arterial Blood Glucose Phenytoin 10/15/20 10/15/20 10/16/20 04:33 13:12 00:09 WBC MCHC Lymph % (Auto) [place] % (Auto) Lymph # (Auto) [place] # (Auto) Seg Neutrophils % Seg Neuts % (Manual) Lymphocytes % (Manual) Seg Neutrophils # Seg Neutrophils # Man Lymphocytes # (Manual) ABG pH 7.297 L POC ABG pCO2 51.0 H POC ABG pO2 56.7 L ABG pO2 ABG O2 Saturation ABG Base Excess ABG Oxyhemoglobin 84.6 L ABG Sodium 134.4 L ABG Glucose 118 H Sodium Chloride Carbon Dioxide BUN Glucose 120 H POC Glucose 114 H Arterial Blood Glucose 118 H Phenytoin 10/16/20 10/16/20 10/17/20 05:42 05:46 04:08 WBC MCHC Lymph % (Auto) [place] % (Auto) Lymph # (Auto) [place] # (Auto) Seg Neutrophils % Seg Neuts % (Manual) Lymphocytes % (Manual) Seg Neutrophils # Seg Neutrophils # Man Lymphocytes # (Manual) ABG pH POC ABG pCO2 POC ABG pO2 ABG pO2 96.6 H ABG O2 Saturation ABG Base Excess ABG Oxyhemoglobin ABG Sodium 132.6 L ABG Glucose 112 H Sodium Chloride Carbon Dioxide BUN Glucose POC Glucose 106 H Arterial Blood Glucose 112 H Phenytoin 10/17/20 10/17/20 10/17/20 09:23 09:23 10:46 WBC 12.3 H MCHC Lymph % (Auto) [place] % (Auto) Lymph # (Auto) [place] # (Auto) Seg Neutrophils % Seg Neuts % (Manual) Lymphocytes % (Manual) Seg Neutrophils # Seg Neutrophils # Man Lymphocytes # (Manual) ABG pH POC ABG pCO2 POC ABG pO2 71.6 L ABG pO2 ABG O2 Saturation ABG Base Excess ABG Oxyhemoglobin 92.6 L ABG Sodium 134.8 L ABG Glucose 105 H Sodium Chloride Carbon Dioxide 21 L BUN 19 H Glucose POC Glucose Arterial Blood Glucose 105 H Phenytoin 10/17/20 10/18/20 10/18/20 23:43 04:18 08:32 WBC MCHC Lymph % (Auto) [place] % (Auto) Lymph # (Auto) [place] # (Auto) Seg Neutrophils % Seg Neuts % (Manual) Lymphocytes % (Manual) Seg Neutrophils # Seg Neutrophils # Man Lymphocytes # (Manual) ABG pH POC ABG pCO2 POC ABG pO2 81.9 L ABG pO2 ABG O2 Saturation ABG Base Excess ABG Oxyhemoglobin ABG Sodium 133.3 L ABG Glucose 125 H Sodium Chloride Carbon Dioxide BUN Glucose POC Glucose 118 H Arterial Blood Glucose 125 H Phenytoin 7.1 L 10/18/20 10/18/20 08:32 08:32 WBC MCHC Lymph % (Auto) 12.4 L [place] % (Auto) Lymph # (Auto) [place] # (Auto) Seg Neutrophils % 77.0 H Seg Neuts % (Manual) Lymphocytes % (Manual) Seg Neutrophils # Seg Neutrophils # Man Lymphocytes # (Manual) ABG pH POC ABG pCO2 POC ABG pO2 ABG pO2 ABG O2 Saturation ABG Base Excess ABG Oxyhemoglobin ABG Sodium ABG Glucose Sodium 135 L Chloride Carbon Dioxide BUN 21 H Glucose 131 H POC Glucose Arterial Blood Glucose Phenytoin Chest x-ray: image reviewed (ETT in good position) Allied health notes reviewed: nursing
[2020-10-18] MEDS: fentaNYL DRIP Premix 2,000 MCG/100 ML BAG IV SCH (16:30)
[2020-10-18] MEDS ORDERED: MAGNESIUM CITRATE 300 ML ORAL LIQD PO ONE (17:14)
[2020-10-18] MEDS: DOCUSATE SODIUM 100 MG/10 ML ORAL LIQD PO SCH (21:06)
[2020-10-18] MEDS: POLYETHYLENE GLYCOL 3350 17 GM POWDER PO SCH (21:07)
--- NOTE | 2020-10-18 23:05 | Progress Note ---
Assessment and Plan The high probability of a clinically significant, sudden or life threatening deterioration of the [cardiac, pulmonary, renal] system(s) required my full and direct attention, intervention and personal management. The aggregate critical care time was [40] minutes. This time is in addition to time spent performing reported procedures but includes the following: [x] Data Review and interpretation [x] Patient assessment and monitoring of vital signs [x] Documentation [x] Medication orders and management (1) Acute respiratory failure Current Visit: Yes Status: Acute Qualifiers: Respiratory failure complication: hypoxia Qualified Code(s): J96.01 - Acute respiratory failure with hypoxia Plan to address problem: Patient intubated and on ventilatory support, daily spontaneous breathing trials, sedation holiday, wean vent as tolerated, critical care team consulted. (2) Status epilepticus Current Visit: Yes Status: Acute Plan to address problem: Continue IV Keppra and IV Vimpat Neurology consult appreciated (3) Hypertensive emergency Current Visit: Yes Status: Acute Plan to address problem: Blood pressure better controlled (4) Acute encephalopathy Current Visit: Yes Status: Acute Plan to address problem: Patient is sedated (5) Leukocytosis Current Visit: Yes Status: Acute Plan to address problem: Chest x-ray, CBC, urinalysis, empiric IV antibiotic therapy x1 dose, repeat CBC in a.m. (6) DVT prophylaxis Current Visit: Yes Status: Acute Plan to address problem: SCD to bilateral lower extremities while in bed, prophylactic anticoagulation (7) Advance care planning Current Visit: Yes Status: Acute Plan to address problem: Disease education conducted, patient is full code, prognosis discussed, +30 minutes. Subjective Date of service: 10/18/20 Principal diagnosis: Ac hypoxemic & hypercapnic resp failure; Status epilepti cus; HTNsive emerge Interval history: 65 YO Female with Obesity, HTN, presents to ED for evaluation. Patient is intubated and on ventilatory support at the time of my evaluation and is unable to provide history. Patient history is taken from EMS staff, ED staff. As per staff the patient was found down and unresponsive by her neighbor. Patient neighbor describe seizure-like activity. EMS was notified and upon arrival the patient was found to be in distress and actively seizing. Patient treated with 2 mg of Ativan which terminated the seizures. The patient was subsequently transported to [facility] for further evaluation and care of the aforementioned symptoms. Patient was seen and evaluated in the emergency department. All lab and imaging studies reviewed. Patient found to have symptoms consistent with status epilepticus which was evidenced by recurrent seizures in the emergency department with concomitant decrease in pulse oximetry to 84% on room air. The patient was also found to have hypertensive emergency with a blood pressure of 223/143. The patient was deemed unable to protect her airway and was intubated for airway protection. Patient also found to have acute encephalopathy. Patient admitted to ICU due to increased risk of decompensation. Critical care team consulted in ED. No prior admission for review. No medication listed at time of admission for reconciliation. Advanced care planning conducted in ED. Patient on antiseizure medications including Keppra and Vimpat EEG no status epilepticus Objective - Exam Narrative Exam: Intubated - Constitutional Vitals: Vital Signs - 12hr 10/18/20 10/18/20 10/18/20 11:10 11:20 11:30 Temperature Pulse Rate 100 H 86 98 H Pulse Rate [ From Monitor] Respiratory 21 20 20 Rate Blood Pressure 113/65 113/65 113/65 O2 Sat by Pulse 99 100 99 Oximetry 10/18/20 10/18/20 10/18/20 11:40 11:50 12:00 Temperature 99.0 F Pulse Rate 90 89 87 Pulse Rate [ 85 From Monitor] Respiratory 20 20 18 Rate Blood Pressure 113/65 113/65 103/65 O2 Sat by Pulse 100 100 100 Oximetry 10/18/20 10/18/20 10/18/20 12:10 12:20 12:30 Temperature Pulse Rate 84 90 91 H Pulse Rate [ From Monitor] Respiratory 22 20 19 Rate Blood Pressure 103/65 103/65 103/65 O2 Sat by Pulse 100 100 100 Oximetry 10/18/20 10/18/20 10/18/20 12:40 12:42 12:50 Temperature Pulse Rate 89 88 86 Pulse Rate [ From Monitor] Respiratory 20 20 Rate Blood Pressure 103/65 103/65 103/65 O2 Sat by Pulse 100 100 100 Oximetry 10/18/20 10/18/20 10/18/20 13:00 13:10 13:20 Temperature Pulse Rate 89 88 86 Pulse Rate [ From Monitor] Respiratory 18 19 20 Rate Blood Pressure 103/65 127/58 127/58 O2 Sat by Pulse 100 99 100 Oximetry 10/18/20 10/18/20 10/18/20 13:30 13:40 13:50 Temperature Pulse Rate 85 83 85 Pulse Rate [ From Monitor] Respiratory 20 20 20 Rate Blood Pressure 127/58 127/58 127/58 O2 Sat by Pulse 99 100 100 Oximetry 10/18/20 10/18/20 10/18/20 14:00 14:10 14:20 Temperature Pulse Rate 88 90 90 Pulse Rate [ From Monitor] Respiratory 20 20 21 Rate Blood Pressure 120/70 120/70 120/70 O2 Sat by Pulse 99 100 99 Oximetry 10/18/20 10/18/20 10/18/20 14:30 14:40 14:50 Temperature Pulse Rate 95 H 96 H 101 H Pulse Rate [ From Monitor] Respiratory 20 17 20 Rate Blood Pressure 120/70 120/70 120/70 O2 Sat by Pulse 99 99 99 Oximetry 10/18/20 10/18/20 10/18/20 15:00 15:10 15:20 Temperature Pulse Rate 101 H 95 H 96 H Pulse Rate [ From Monitor] Respiratory 21 19 22 Rate Blood Pressure 120/70 139/74 139/74 O2 Sat by Pulse 98 99 99 Oximetry 10/18/20 10/18/20 10/18/20 15:30 15:39 15:40 Temperature Pulse Rate 92 H 91 H 94 H Pulse Rate [ From Monitor] Respiratory 19 20 Rate Blood Pressure 139/74 139/74 139/74 O2 Sat by Pulse 99 99 99 Oximetry 10/18/20 10/18/20 10/18/20 15:50 16:00 16:10 Temperature 99.7 F H Pulse Rate 87 84 104 H Pulse Rate [ 90 From Monitor] Respiratory 20 20 16 Rate Blood Pressure 139/74 126/77 126/77 O2 Sat by Pulse 100 100 98 Oximetry 10/18/20 10/18/20 10/18/20 16:20 16:30 16:40 Temperature Pulse Rate 93 H 90 Pulse Rate [ From Monitor] Respiratory 21 21 Rate Blood Pressure 126/77 126/77 126/77 O2 Sat by Pulse 98 99 97 Oximetry 10/18/20 10/18/20 10/18/20 16:50 17:00 17:10 Temperature Pulse Rate 93 H 89 89 Pulse Rate [ From Monitor] Respiratory 20 21 20 Rate Blood Pressure 126/77 136/75 136/75 O2 Sat by Pulse 98 99 99 Oximetry 10/18/20 10/18/20 10/18/20 17:20 17:30 17:40 Temperature Pulse Rate 86 85 82 Pulse Rate [ From Monitor] Respiratory 20 20 20 Rate Blood Pressure 136/75 136/75 136/75 O2 Sat by Pulse 99 99 100 Oximetry 10/18/20 10/18/20 10/18/20 17:50 18:00 18:10 Temperature Pulse Rate 79 73 77 Pulse Rate [ From Monitor] Respiratory 20 20 20 Rate Blood Pressure 136/75 112/66 112/66 O2 Sat by Pulse 100 100 99 Oximetry 10/18/20 10/18/20 10/18/20 18:20 18:30 18:40 Temperature Pulse Rate 88 79 81 Pulse Rate [ From Monitor] Respiratory 20 20 19 Rate Blood Pressure 112/66 112/66 112/66 O2 Sat by Pulse 99 100 100 Oximetry 10/18/20 10/18/20 10/18/20 18:50 19:00 19:10 Temperature Pulse Rate 79 83 78 Pulse Rate [ From Monitor] Respiratory 20 20 21 Rate Blood Pressure 112/66 117/69 117/69 O2 Sat by Pulse 100 100 100 Oximetry 10/18/20 10/18/20 10/18/20 19:20 19:30 19:40 Temperature Pulse Rate 77 79 78 Pulse Rate [ From Monitor] Respiratory 20 20 20 Rate Blood Pressure 117/69 117/69 117/69 O2 Sat by Pulse 100 100 100 Oximetry 10/18/20 10/18/20 10/18/20 19:50 20:00 20:10 Temperature 99.0 F Pulse Rate 88 76 75 Pulse Rate [ 76 From Monitor] Respiratory 17 20 20 Rate Blood Pressure 117/69 113/64 113/64 O2 Sat by Pulse 100 100 100 Oximetry 10/18/20 10/18/20 10/18/20 20:20 20:30 20:40 Temperature Pulse Rate 77 77 73 Pulse Rate [ From Monitor] Respiratory 20 20 20 Rate Blood Pressure 113/64 113/64 O2 Sat by Pulse 100 100 100 Oximetry 10/18/20 10/18/20 10/18/20 20:50 21:00 21:10 Temperature Pulse Rate 72 70 73 Pulse Rate [ From Monitor] Respiratory 20 20 20 Rate Blood Pressure 113/64 116/67 116/67 O2 Sat by Pulse 100 100 100 Oximetry 10/18/20 10/18/20 10/18/20 21:20 21:30 21:40 Temperature Pulse Rate 74 77 74 Pulse Rate [ From Monitor] Respiratory 20 20 20 Rate Blood Pressure 116/67 116/67 116/67 O2 Sat by Pulse 100 100 100 Oximetry 10/18/20 10/18/20 10/18/20 21:50 22:00 22:10 Temperature Pulse Rate 76 77 78 Pulse Rate [ From Monitor] Respiratory 20 20 20 Rate Blood Pressure 116/67 108/59 108/59 O2 Sat by Pulse 99 100 100 Oximetry General appearance: Present: no acute distress, well-nourished - EENT Eyes: PERRL, EOM intact ENT: hearing intact, clear oral mucosa Ears: bilateral: normal - Neck Neck: supple, normal ROM - Respiratory Respiratory effort: normal Respiratory: bilateral: CTA - Breasts Breasts: normal - Cardiovascular Heart rate: 76 Rhythm: regular Heart Sounds: Present: S1 & S2. Absent: gallop, rub Extremities: pulses intact, No edema, normal color, Full ROM - Gastrointestinal General gastrointestinal: Present: soft, non-tender, non-distended, normal bowel sounds - Genitourinary Female genitourinary: normal - Integumentary Integumentary: clear, warm, dry - Musculoskeletal Musculoskeletal: strength equal bilaterally, generalized weakness, other (Patient intubated) - Neurologic Neurologic: moves all extremities, other (Patient intubated) - Psychiatric Psychiatric: other (Patient intubated) - Labs CBC & Chem 7: 10/30/20 07:53 10/30/20 07:53 Labs: Abnormal lab results 10/17/20 10/18/20 10/18/20 Range/Units 23:43 04:18 08:32 Lymph % (Auto) (13.4-35.0) % Seg Neutrophils % (40.0-70.0) % POC ABG pO2 81.9 L (83-108) mmHg ABG Sodium 133.3 L (136.0-145.0) mmol/L ABG Glucose 125 H (65-95) mg/dL Sodium (137-145) mmol/L BUN (7-17) mg/dL Glucose (65-100) mg/dL POC Glucose 118 H (70-105) mg/dL Arterial Blood Glucose 125 H (65-95) mg/dL Phenytoin 7.1 L (10.0-20.0) ug/mL 10/18/20 10/18/2010/18/20 Range/Units 08:32 08:32 12:34 Lymph % (Auto) 12.4 L (13.4-35.0) % Seg Neutrophils % 77.0 H (40.0-70.0) % POC ABG pO2 (83-108) mmHg ABG Sodium (136.0-145.0) mmol/L ABG Glucose (65-95) mg/dL Sodium 135 L (137-145) mmol/L BUN 21 H (7-17) mg/dL Glucose 131 H (65-100) mg/dL POC Glucose 121 H (70-105) mg/dL Arterial Blood Glucose (65-95) mg/dL Phenytoin (10.0-20.0) ug/mL 10/18/20 Range/Units 18:12 Lymph % (Auto) (13.4-35.0) % Seg Neutrophils % (40.0-70.0) % POC ABG pO2 (83-108) mmHg ABG Sodium (136.0-145.0) mmol/L ABG Glucose (65-95) mg/dL Sodium (137-145) mmol/L BUN (7-17) mg/dL Glucose (65-100) mg/dL POC Glucose 133 H (70-105) mg/dL Arterial Blood Glucose (65-95) mg/dL Phenytoin (10.0-20.0) ug/mL HEART Score - HEART Score Troponin: Troponin T 0.015 ng/mL (0.00-0.029) 10/14/20 13:36
--- NOTE | 2020-10-19 03:20 | XRay Report ---
CHEST 1 VIEW 10/19/2020 2:07 AM INDICATION / CLINICAL INFORMATION: follow up respiratory failure. COMPARISON: 10/18/2020 FINDINGS: SUPPORT DEVICES: Stable, satisfactory device positioning. HEART / MEDIASTINUM: Stable. LUNGS / PLEURA: Stable left basilar subsegmental atelectasis. No pneumothorax. ADDITIONAL FINDINGS: No significant additional findings. IMPRESSION: 1. No significant change. Signer Name: Dio Keenan MD Signed: 10/19/2020 3:19 AM Workstation Name: [id number]
[2020-10-19] MEDS: LACOSAMIDE 200 MG in SODIUM CHLORIDE 0.9% 100 ML IV SCH ×2 (04:00→15:31)
[2020-10-19 05:39] LABS: ABG Base Excess 1.6 mmol/L (-2.0-3.0); ABG HCO3 27.1 mmol/L (20.0-26.0); ABG Methemoglobin 0.5 % (0.0-1.5); ABG Oxygen Saturation 96.7 % (95.0-99.0); ABG PCO2 46.2 mm Hg; ABG PH 7.386 pH Units (7.350-7.450); ABG PO2 84.7 mm Hg (80.0-90.0)
[2020-10-19] MEDS: PHENYTOIN 100 MG/2 ML VIAL IV SCH ×3 (06:53→22:05)
[2020-10-19 08:41] LABS: Hematocrit 34.8 % (30.3-42.9); Hemoglobin 11.9 gm/dl (10.1-14.3); Mean Corpuscular HGB Conc 34 % (30-34); Mean Corpuscular Volume 83 fl (79-97); Platelet Count 242 K/mm3 (140-440); Red Blood Count 4.19 M/mm3 (3.65-5.03)
[2020-10-19 09:03] LABS: Blood Urea Nitrogen 16 mg/dL (7-17); Calcium 8.8 mg/dL (8.4-10.2); Hemolysis Index 13
[2020-10-19 09:05] LABS: BUN/Creatinine Ratio 27
[2020-10-19] MEDS: levETIRAcetam 1,500 MG in DEXTROSE 5% IN WATER 100 ML IV SCH (09:19)
[2020-10-19] MEDS: DOCUSATE SODIUM 100 MG/10 ML ORAL LIQD PO SCH (09:20)
[2020-10-19] MEDS: QUEtiapine 200 MG TAB PO SCH ×2 (09:20→22:15)
[2020-10-19] MEDS: HEPARIN 5,000 UNIT/1 ML VIAL SUB-Q SCH (09:20)
[2020-10-19] MEDS: FAMOTIDINE 20 MG/2 ML INJ IV SCH (09:20)
--- NOTE | 2020-10-19 11:39 | Progress Note ---
Assessment and Plan 65 yo female with htn, obesity, presenting w/ status epilepticus. 1. Status Epilepticus - increase keppra 1500 mg iv/po q12; vimpat 200 mg iv/po q12; continue 100 mg iv/po tid; wean off Versed gtt; EEG (had recommended EEG to be done off Versed) reveals no ictal activity. 2. Therapeutic Drug Monitoring - dilantin level is not supratherapeutic. 3. Metabolic Encephalopathy - in the setting of underlying infection. 4. Currently, patient does not need transfer to a higher level of care since the EEG (?done off Versed) does not reveal ictal activity on these 3 AEDs as above. Subjective Date of service: 10/19/20 Principal diagnosis: Ac hypoxemic & hypercapnic resp failure; Status epilepticus; HTNsive emerge Interval history: No clinical seizures per RN; EEG was done yesterday. Objective - Exam Narrative Exam: Patient not seen. - Vital Sign Vital Signs - 12hr 10/18/20 10/18/20 10/19/20 23:40 23:50 00:00 Temperature 99.1 F Pulse Rate 68 67 67 Pulse Rate [ 67 From Monitor] Respiratory 20 20 20 Rate Blood Pressure 104/60 104/60 96/57 O2 Sat by Pulse 100 100 100 Oximetry 10/19/20 10/19/20 10/19/20 00:10 00:20 00:30 Temperature Pulse Rate 66 67 67 Pulse Rate [ From Monitor] Respiratory 20 20 20 Rate Blood Pressure 96/57 96/57 96/57 O2 Sat by Pulse 100 100 100 Oximetry 10/19/20 10/19/20 10/19/20 00:34 00:40 00:50 Temperature Pulse Rate 71 67 70 Pulse Rate [ From Monitor] Respiratory 20 20 Rate Blood Pressure 105/66 96/57 96/57 O2 Sat by Pulse 100 100 100 Oximetry 10/19/20 10/19/20 10/19/20 01:00 01:10 01:20 Temperature Pulse Rate 70 70 70 Pulse Rate [ From Monitor] Respiratory 20 20 20 Rate Blood Pressure 105/66 105/66 105/66 O2 Sat by Pulse 100 100 100 Oximetry 10/19/20 10/19/20 10/19/20 01:30 01:40 01:50 Temperature Pulse Rate 71 76 75 Pulse Rate [ From Monitor] Respiratory 20 20 20 Rate Blood Pressure 105/66 105/66 105/66 O2 Sat by Pulse 100 100 100 Oximetry 10/19/20 10/19/20 10/19/20 02:00 02:10 02:20 Temperature Pulse Rate 76 78 76 Pulse Rate [ From Monitor] Respiratory 20 20 20 Rate Blood Pressure 116/68 116/68 116/68 O2 Sat by Pulse 100 100 99 Oximetry 10/19/20 10/19/20 10/19/20 02:30 02:40 02:50 Temperature Pulse Rate 74 78 90 Pulse Rate [ From Monitor] Respiratory 19 21 16 Rate Blood Pressure 116/68 116/68 116/68 O2 Sat by Pulse 99 99 98 Oximetry 10/19/20 10/19/20 10/19/20 03:00 03:10 03:20 Temperature Pulse Rate 92 H 88 97 H Pulse Rate [ From Monitor] Respiratory 20 20 23 Rate Blood Pressure 116/68 135/83 135/83 O2 Sat by Pulse 99 100 98 Oximetry 10/19/20 10/19/20 10/19/20 03:30 03:40 03:50 Temperature Pulse Rate 87 112 H 97 H Pulse Rate [ From Monitor] Respiratory 20 23 20 Rate Blood Pressure 135/83 135/83 135/83 O2 Sat by Pulse 99 97 98 Oximetry 10/19/20 10/19/20 10/19/20 04:00 04:10 04:20 Temperature 99.4 F Pulse Rate 98 H 94 H 92 H Pulse Rate [ 84 From Monitor] Respiratory 24 20 21 Rate Blood Pressure 135/83 135/83 135/83 O2 Sat by Pulse 98 99 99 Oximetry 10/19/20 10/19/20 10/19/20 04:30 04:40 04:50 Temperature Pulse Rate 90 87 97 H Pulse Rate [ From Monitor] Respiratory 15 20 19 Rate Blood Pressure 135/83 135/83 136/73 O2 Sat by Pulse 99 99 97 Oximetry 10/19/20 10/19/20 10/19/20 05:00 05:10 05:20 Temperature Pulse Rate 89 87 84 Pulse Rate [ From Monitor] Respiratory 20 21 20 Rate Blood Pressure 139/70 139/70 139/70 O2 Sat by Pulse 99 99 99 Oximetry 10/19/20 10/19/20 10/19/20 05:30 05:37 05:40 Temperature Pulse Rate 81 77 77 Pulse Rate [ From Monitor] Respiratory 21 19 Rate Blood Pressure 139/70 139/70 139/70 O2 Sat by Pulse 100 100 100 Oximetry 20 18/20 20 05:50 06:00 06:10 Temperature Pulse Rate 82 82 80 Pulse Rate [ From Monitor] Respiratory 20 20 20 Rate Blood Pressure 139/70 137/68 137/68 O2 Sat by Pulse 99 98 99 Oximetry 10/19/20 18/20 20 06:20 06:30 06:40 Temperature Pulse Rate 89 90 96 H Pulse Rate [ From Monitor] Respiratory 19 18 23 Rate Blood Pressure 139/70 139/70 139/70 O2 Sat by Pulse 98 99 98 Oximetry 10/19/20 10/19/20 10/19/20 06:50 07:00 07:10 Temperature Pulse Rate 86 80 74 Pulse Rate [ From Monitor] Respiratory 21 20 20 Rate Blood Pressure 139/70 147/83 147/83 O2 Sat by Pulse 99 99 100 Oximetry 20 20 10/19/20 07:20 07:30 07:40 Temperature Pulse Rate 73 73 70 Pulse Rate [ From Monitor] Respiratory 20 20 20 Rate Blood Pressure 147/83 147/83 147/83 O2 Sat by Pulse 100 99 100 Oximetry 20 20 10/19/20 07:50 08:00 08:03 Temperature 98.0 F Pulse Rate 70 70 81 Pulse Rate [ 77 From Monitor] Respiratory 20 20 Rate Blood Pressure 147/83 147/83 113/64 O2 Sat by Pulse 100 100 100 Oximetry 20 20 20 08:10 08:20 08:30 Temperature Pulse Rate 80 77 81 Pulse Rate [ From Monitor] Respiratory 20 21 20 Rate Blood Pressure 113/64 113/64 113/64 O2 Sat by Pulse 100 97 98 Oximetry 10/19/20 18/20 10/19/20 08:40 08:50 09:00 Temperature Pulse Rate 79 76 86 Pulse Rate [ From Monitor] Respiratory 20 20 16 Rate Blood Pressure 113/64 113/64 159/82 O2 Sat by Pulse 99 99 99 Oximetry 20 18/20 10/19/20 09:10 09:20 09:30 Temperature Pulse Rate 82 78 84 Pulse Rate [ From Monitor] Respiratory 20 20 20 Rate Blood Pressure 159/82 159/82 159/82 O2 Sat by Pulse 100 100 99 Oximetry 10/19/20 10/19/20 10/19/20 09:40 09:50 10:00 Temperature Pulse Rate 84 111 H 96 H Pulse Rate [ From Monitor] Respiratory 18 25 H 20 Rate Blood Pressure 159/82 159/82 126/69 O2 Sat by Pulse 99 98 98 Oximetry 10/19/20 10/19/20 10/19/20 10:10 10:20 10:30 Temperature Pulse Rate 99 H 94 H 93 H Pulse Rate [ From Monitor] Respiratory 20 20 21 Rate Blood Pressure 126/69 126/69 126/69 O2 Sat by Pulse 98 99 99 Oximetry 10/19/20 10/19/20 10/19/20 10:40 10:50 11:00 Temperature Pulse Rate 89 93 H 96 H Pulse Rate [ From Monitor] Respiratory 17 16 20 Rate Blood Pressure 126/69 126/69 143/84 O2 Sat by Pulse 99 98 99 Oximetry 10/19/20 10/19/20 10/19/20 11:09 11:10 11:20 Temperature Pulse Rate 89 89 89 Pulse Rate [ From Monitor] Respiratory 20 20 Rate Blood Pressure 143/84 143/84 143/84 O2 Sat by Pulse 99 100 100 Oximetry 10/19/20 11:30 Temperature Pulse Rate 81 Pulse Rate [ From Monitor] Respiratory 20 Rate Blood Pressure 143/84 O2 Sat by Pulse 100 Oximetry - Laboratory Findings CBC and BMP: 10/19/20 07:59 10/19/20 07:59 Abnormal Lab Findings: Abnormal Labs 10/14/20 10/14/20 10/14/20 13:36 13:36 14:22 WBC 14.7 H MCHC 35 H Lymph % (Auto) [place] % (Auto) Lymph # (Auto) [place] # (Auto) Seg Neutrophils % Seg Neuts % (Manual) 89.0 H Lymphocytes % (Manual) 4.0 L Seg Neutrophils # Seg Neutrophils # Man 13.1 H Lymphocytes # (Manual) 0.6 L ABG pH 7.298 L POC ABG pCO2 POC ABG pO2 ABG pO2 285.8 H ABG HCO3 ABG O2 Saturation 99.5 H ABG Base Excess -4.1 L ABG Hemoglobin ABG Oxyhemoglobin ABG Sodium ABG Glucose Oxyhemoglobin Sodium 131 L Chloride 97.2 L Carbon Dioxide BUN Glucose 170 H POC Glucose Arterial Blood Glucose Phenytoin 10/14/20 10/15/20 10/15/20 17:09 03:35 04:33 WBC MCHC 36 H Lymph % (Auto) 9.6 L [place] % (Auto) 10.1 H Lymph # (Auto) 1.0 L [place] # (Auto) 1.1 H Seg Neutrophils % 79.8 H Seg Neuts % (Manual) Lymphocytes % (Manual) Seg Neutrophils # 8.4 H Seg Neutrophils # Man Lymphocytes # (Manual) ABG pH 7.536 H POC ABG pCO2 POC ABG pO2 ABG pO2 185.0 H 110.2 H ABG HCO3 ABG O2 Saturation 99.2 H ABG Base Excess ABG Hemoglobin ABG Oxyhemoglobin ABG Sodium ABG Glucose Oxyhemoglobin Sodium Chloride Carbon Dioxide BUN Glucose POC Glucose Arterial Blood Glucose Phenytoin 10/15/20 10/15/20 10/16/20 04:33 13:12 00:09 WBC MCHC Lymph % (Auto) [place] % (Auto) Lymph # (Auto) [place] # (Auto) Seg Neutrophils % Seg Neuts % (Manual) Lymphocytes % (Manual) Seg Neutrophils # Seg Neutrophils # Man Lymphocytes # (Manual) ABG pH 7.297 L POC ABG pCO2 51.0 H POC ABG pO2 56.7 L ABG pO2 ABG HCO3 ABG O2 Saturation ABG Base Excess ABG Hemoglobin ABG Oxyhemoglobin 84.6 L ABG Sodium 134.4 L ABG Glucose 118 H Oxyhemoglobin Sodium Chloride Carbon Dioxide BUN Glucose 120 H POC Glucose 114 H Arterial Blood Glucose 118 H Phenytoin 10/16/20 10/16/20 10/17/20 05:42 05:46 04:08 WBC MCHC Lymph % (Auto) [place] % (Auto) Lymph # (Auto) [place] # (Auto) Seg Neutrophils % Seg Neuts % (Manual) Lymphocytes % (Manual) Seg Neutrophils # Seg Neutrophils # Man Lymphocytes # (Manual) ABG pH POC ABG pCO2 POC ABG pO2 ABG pO2 96.6 H ABG HCO3 ABG O2 Saturation ABG Base Excess ABG Hemoglobin ABG Oxyhemoglobin ABG Sodium 132.6 L ABG Glucose 112 H Oxyhemoglobin Sodium Chloride Carbon Dioxide BUN Glucose POC Glucose 106 H Arterial Blood Glucose 112 H Phenytoin 10/17/20 10/17/20 10/17/20 09:23 09:23 10:46 WBC 12.3 H MCHC Lymph % (Auto) [place] % (Auto) Lymph # (Auto) [place] # (Auto) Seg Neutrophils % Seg Neuts % (Manual) Lymphocytes % (Manual) Seg Neutrophils # Seg Neutrophils # Man Lymphocytes # (Manual) ABG pH POC ABG pCO2 POC ABG pO2 71.6 L ABG pO2 ABG HCO3 ABG O2 Saturation ABG Base Excess ABG Hemoglobin ABG Oxyhemoglobin 92.6 L ABG Sodium 134.8 L ABG Glucose 105 H Oxyhemoglobin Sodium Chloride Carbon Dioxide 21 L BUN 19 H Glucose POC Glucose Arterial Blood Glucose 105 H Phenytoin 10/17/20 10/18/20 10/18/20 23:43 04:18 08:32 WBC MCHC Lymph % (Auto) [place] % (Auto) Lymph # (Auto) [place] # (Auto) Seg Neutrophils % Seg Neuts % (Manual) Lymphocytes % (Manual) Seg Neutrophils # Seg Neutrophils # Man Lymphocytes # (Manual) ABG pH POC ABG pCO2 POC ABG pO2 81.9 L ABG pO2 ABG HCO3 ABG O2 Saturation ABG Base Excess ABG Hemoglobin ABG Oxyhemoglobin ABG Sodium 133.3 L ABG Glucose 125 H Oxyhemoglobin Sodium Chloride Carbon Dioxide BUN Glucose POC Glucose 118 H Arterial Blood Glucose 125 H Phenytoin 7.1 L 10/18/20 10/18/20 10/18/20 08:32 08:32 12:34 WBC MCHC Lymph % (Auto) 12.4 L [place] % (Auto) Lymph # (Auto) [place] # (Auto) Seg Neutrophils % 77.0 H Seg Neuts % (Manual) Lymphocytes % (Manual) Seg Neutrophils # Seg Neutrophils # Man Lymphocytes # (Manual) ABG pH POC ABG pCO2 POC ABG pO2 ABG pO2 ABG HCO3 ABG O2 Saturation ABG Base Excess ABG Hemoglobin ABG Oxyhemoglobin ABG Sodium ABG Glucose Oxyhemoglobin Sodium 135 L Chloride Carbon Dioxide BUN 21 H Glucose 131 H POC Glucose 121 H Arterial Blood Glucose Phenytoin 10/18/20 10/18/20 10/19/20 18:12 23:47 04:55 WBC MCHC Lymph % (Auto) [place] % (Auto) Lymph # (Auto) [place] # (Auto) Seg Neutrophils % Seg Neuts % (Manual) Lymphocytes % (Manual) Seg Neutrophils # Seg Neutrophils # Man Lymphocytes # (Manual) ABG pH POC ABG pCO2 POC ABG pO2 ABG pO2 ABG HCO3 27.1 H ABG O2 Saturation ABG Base Excess ABG Hemoglobin 11.1 L ABG Oxyhemoglobin ABG Sodium ABG Glucose Oxyhemoglobin 94.9 L Sodium Chloride Carbon Dioxide BUN Glucose POC Glucose 133 H 142 H Arterial Blood Glucose Phenytoin 10/19/20 10/19/20 06:02 07:59 WBC MCHC Lymph % (Auto) [place] % (Auto) Lymph # (Auto) [place] # (Auto) Seg Neutrophils % Seg Neuts % (Manual) Lymphocytes % (Manual) Seg Neutrophils # Seg Neutrophils # Man Lymphocytes # (Manual) ABG pH POC ABG pCO2 POC ABG pO2 ABG pO2 ABG HCO3 ABG O2 Saturation ABG Base Excess ABG Hemoglobin ABG Oxyhemoglobin ABG Sodium ABG Glucose Oxyhemoglobin Sodium Chloride Carbon Dioxide BUN Glucose 144 H POC Glucose 143 H Arterial Blood Glucose Phenytoin
--- NOTE | 2020-10-19 13:52 | Progress Note ---
Assessment and Plan Acute hypoxemic and hypercapnic respiratory failure. Acute encephalopathy (Toxic / metabolic). Status epilepticus. Hypertensive emergency at presentation. History of a brain aneurysm repair. Obesity. History of hypertension. Leukocytosis. Mild hyponatremia. Hyperglycemia. - placed on SBT at 10/6 - ABG after 2 hours - continue bowel regimen with colace & miralax - use fentanyl for sedation - daily SAT's and SBT assessment as tolerated - continue care as below otherwise; - continue Vimpat & Keppra (Adjust per neurologist) - continue enteral nutrition at goal rate as tolerated - continue Seroquel 200 mg p.o. bid to spare IV sedatives - continue to wean supplemental oxygen for target O2 sat's > 92% acutely - VAP bundle addressed - continue lung protective strategies - continue bronchodilators with pulmonary hygiene per RT - wean per pulmonary driven protocols otherwise - sedation prn for target RASS -1 to -2 - begin enteral nutritional support at goal rate as tolerated - empiric AB's coverage per ID rec's otherwise - accuchecks with glycemic control per SSI (While critically ill target blood glucose of 140-180 mg/dL; avoid hypoglycemia) - avoid nephrotoxins, renally dose all medications - continue Keppra as AED - continue to avoid benzodiazepine's, reduce the possibility of delirium - prn analgesia per CPOT score - Maintenance of sleep-wake cycle, avoid delirium - continue to avoid benzodiazepine's, reduce the possibility of delirium - aspiration precautions - G.I. & VTE prophylaxis - PT/OT/ROM exercises - continue mobility protocols for pressure ulcer prophylaxis - Monitor hemodynamics closely - continue other care per attending / other consultants - discharge planning ongoing concurrently .... Re-evaluate in am & prn CONDITION: CRITICAL PROGNOSIS: GUARDED CODE STATUS: FULL CODE The high probability of a clinically significant, sudden or life-threatening deterioration of the [respiratory, cardiovascular & neurologic] system(s) required my full and direct attention, intervention and personal management. The aggregate critical care time was [36] minutes without overlap. Time includes s pent on; [x] Data Review and interpretation [x] Patient assessment and monitoring of vital signs [x] Documentation [x] Medication orders and management Subjective Date of service: 10/19/20 Principal diagnosis: Ac hypoxemic & hypercapnic resp failure; Status epilepticus; HTNsive emerge Interval history: Patient is seen today for: Ac hypoxemic and hypercapnic resp failure; Ac. encephalopathy; Status epilepticus; HTNsive emergency; History of a brain aneurysm repair; Obesity Seen and examined at bedside; 24hour events reviewed; nursing and respiratory care staff consulted; no adverse overnight events reported to me; resting peacefully in bed; remains on low dose versed; she is responsive and denies pain; no N/V/F/C Objective Vital Signs - 12hr 10/19/20 10/19/20 10/19/20 02:00 02:10 02:20 Temperature Pulse Rate 76 78 76 Pulse Rate [ From Monitor] Respiratory 20 20 20 Rate Blood Pressure 116/68 116/68 116/68 O2 Sat by Pulse 100 100 99 Oximetry 10/19/20 10/19/20 10/19/20 02:30 02:40 02:50 Temperature Pulse Rate 74 78 90 Pulse Rate [ From Monitor] Respiratory 19 21 16 Rate Blood Pressure 116/68 116/68 116/68 O2 Sat by Pulse 99 99 98 Oximetry 10/19/20 10/19/20 10/19/20 03:00 03:10 03:20 Temperature Pulse Rate 92 H 88 97 H Pulse Rate [ From Monitor] Respiratory 20 20 23 Rate Blood Pressure 116/68 135/83 135/83 O2 Sat by Pulse 99 100 98 Oximetry 10/19/20 10/19/20 10/19/20 03:30 03:40 03:50 Temperature Pulse Rate 87 112 H 97 H Pulse Rate [ From Monitor] Respiratory 20 23 20 Rate Blood Pressure 135/83 135/83 135/83 O2 Sat by Pulse 99 97 98 Oximetry 10/19/20 10/19/20 10/19/20 04:00 04:10 04:20 Temperature 99.4 F Pulse Rate 98 H 94 H 92 H Pulse Rate [ 84 From Monitor] Respiratory 24 20 21 Rate Blood Pressure 135/83 135/83 135/83 O2 Sat by Pulse 98 99 99 Oximetry 10/19/20 10/19/20 10/19/20 04:30 04:40 04:50 Temperature Pulse Rate 90 87 97 H Pulse Rate [ From Monitor] Respiratory 15 20 19 Rate Blood Pressure 135/83 135/83 136/73 O2 Sat by Pulse 99 99 97 Oximetry 10/19/20 10/19/20 10/19/20 05:00 05:10 05:20 Temperature Pulse Rate 89 87 84 Pulse Rate [ From Monitor] Respiratory 20 21 20 Rate Blood Pressure 139/70 139/70 139/70 O2 Sat by Pulse 99 99 99 Oximetry 10/19/20 10/19/20 10/19/20 05:30 05:37 05:40 Temperature Pulse Rate 81 77 77 Pulse Rate [ From Monitor] Respiratory 21 19 Rate Blood Pressure 139/70 139/70 139/70 O2 Sat by Pulse 100 100 100 Oximetry 10/19/20 10/19/20 10/19/20 05:50 06:00 06:10 Temperature Pulse Rate 82 82 80 Pulse Rate [ From Monitor] Respiratory 20 20 20 Rate Blood Pressure 139/70 137/68 137/68 O2 Sat by Pulse 99 98 99 Oximetry 10/19/20 10/19/20 10/19/20 06:20 06:30 06:40 Temperature Pulse Rate 89 90 96 H Pulse Rate [ From Monitor] Respiratory 19 18 23 Rate Blood Pressure 139/70 139/70 139/70 O2 Sat by Pulse 98 99 98 Oximetry 10/19/20 10/19/20 10/19/20 06:50 07:00 07:10 Temperature Pulse Rate 86 80 74 Pulse Rate [ From Monitor] Respiratory 21 20 20 Rate Blood Pressure 139/70 147/83 147/83 O2 Sat by Pulse 99 99 100 Oximetry 10/19/20 10/19/20 10/19/20 07:20 07:30 07:40 Temperature Pulse Rate 73 73 70 Pulse Rate [ From Monitor] Respiratory 20 20 20 Rate Blood Pressure 147/83 147/83 147/83 O2 Sat by Pulse 100 99 100 Oximetry 10/19/20 10/19/20 10/19/20 07:50 08:00 08:03 Temperature 98.0 F Pulse Rate 70 70 81 Pulse Rate [ 77 From Monitor] Respiratory 20 20 Rate Blood Pressure 147/83 147/83 113/64 O2 Sat by Pulse 100 100 100 Oximetry 10/19/20 10/19/20 10/19/20 08:10 08:20 08:30 Temperature Pulse Rate 80 77 81 Pulse Rate [ From Monitor] Respiratory 20 21 20 Rate Blood Pressure 113/64 113/64 113/64 O2 Sat by Pulse 100 97 98 Oximetry 10/19/20 10/19/20 10/19/20 08:40 08:50 09:00 Temperature Pulse Rate 79 76 86 Pulse Rate [ From Monitor] Respiratory 20 20 16 Rate Blood Pressure 113/64 113/64 159/82 O2 Sat by Pulse 99 99 99 Oximetry 10/19/20 10/19/20 10/19/20 09:10 09:20 09:30 Temperature Pulse Rate 82 78 84 Pulse Rate [ From Monitor] Respiratory 20 20 20 Rate Blood Pressure 159/82 159/82 159/82 O2 Sat by Pulse 100 100 99 Oximetry 10/19/20 10/19/20 10/19/20 09:40 09:50 10:00 Temperature Pulse Rate 84 111 H 96 H Pulse Rate [ From Monitor] Respiratory 18 25 H 20 Rate Blood Pressure 159/82 159/82 126/69 O2 Sat by Pulse 99 98 98 Oximetry 10/19/20 10/19/20 10/19/20 10:10 10:20 10:30 Temperature Pulse Rate 99 H 94 H 93 H Pulse Rate [ From Monitor] Respiratory 20 20 21 Rate Blood Pressure 126/69 126/69 126/69 O2 Sat by Pulse 98 99 99 Oximetry 10/19/20 10/19/20 10/19/20 10:40 10:50 11:00 Temperature Pulse Rate 89 93 H 96 H Pulse Rate [ From Monitor] Respiratory 17 16 20 Rate Blood Pressure 126/69 126/69 143/84 O2 Sat by Pulse 99 98 99 Oximetry 10/19/20 10/19/20 10/19/20 11:09 11:10 11:20 Temperature Pulse Rate 89 89 89 Pulse Rate [ From Monitor] Respiratory 20 20 Rate Blood Pressure 143/84 143/84 143/84 O2 Sat by Pulse 99 100 100 Oximetry 10/19/20 10/19/20 10/19/20 11:30 11:40 11:50 Temperature Pulse Rate 81 79 76 Pulse Rate [ From Monitor] Respiratory 20 20 20 Rate Blood Pressure 143/84 143/84 143/84 O2 Sat by Pulse 100 100 100 Oximetry 10/19/20 10/19/20 10/19/20 12:00 12:10 12:20 Temperature 98.9 F Pulse Rate 76 75 76 Pulse Rate [ 74 From Monitor] Respiratory 20 20 20 Rate Blood Pressure 111/69 111/69 111/69 O2 Sat by Pulse 100 99 100 Oximetry 10/19/20 10/19/20 10/19/20 12:30 12:40 12:50 Temperature Pulse Rate 75 78 81 Pulse Rate [ From Monitor] Respiratory 20 20 20 Rate Blood Pressure 111/69 111/69 111/69 O2 Sat by Pulse 100 99 100 Oximetry 10/19/20 13:00 Temperature Pulse Rate 77 Pulse Rate [ From Monitor] Respiratory 20 Rate Blood Pressure 133/75 O2 Sat by Pulse 99 Oximetry Constitutional: no acute distress, other (elderly obese female without sig nificant patient / ventilator dyssynchrony) Eyes: non-icteric ENT: oropharynx moist, other (ETT 24 cm NATIVIDAD) Neck: supple, no lymphadenopathy, no JVD Effort: mildly labored Ascultation: Bilateral: diminished breath sounds, rhonchi (scant) Percussion: Bilateral: not dull Cardiovascular: regular rate and rhythm Gastrointestinal: normoactive bowel sounds, soft, non-tender, non-distended (protuberant) Integumentary: normal Extremities: no cyanosis, no edema, pink and warm, pulses normal Neurologic: non-focal exam (grossly), pupils equal and round, other (sedated but responds appropriately) Psychiatric: other (sedated) CBC and BMP: 10/19/20 07:59 10/19/20 07:59 ABG, PT/INR, D-dimer: ABG ABG pH 7.386 pH Units (7.350-7.450) 10/19/20 04:55 POC ABG pCO2 36.8 mmHg (32.0-48.0) 10/18/20 04:18 ABG pCO2 46.2 mm Hg 10/19/20 04:55 POC ABG pO2 81.9 mmHg (83-108) L 10/18/20 04:18 ABG pO2 84.7 mm Hg (80.0-90.0) 10/19/20 04:55 POC ABG HCO3 22.2 10/18/20 04:18 ABG O2 Saturation 96.7 % (95.0-99.0) 10/19/20 04:55 PT/INR, D-dimer PT 14.0 Sec. (12.2-14.9) 10/14/20 13:36 INR 1.07 (0.87-1.13) 10/14/20 13:36 Abnormal lab findings: Abnormal Labs 10/14/20 10/14/20 10/14/20 13:36 13:36 14:22 WBC 14.7 H MCHC 35 H Lymph % (Auto) [place] % (Auto) Lymph # (Auto) [place] # (Auto) Seg Neutrophils % Seg Neuts % (Manual) 89.0 H Lymphocytes % (Manual) 4.0 L Seg Neutrophils # Seg Neutrophils # Man 13.1 H Lymphocytes # (Manual) 0.6 L ABG pH 7.298 L POC ABG pCO2 POC ABG pO2 ABG pO2 285.8 H ABG HCO3 ABG O2 Saturation 99.5 H ABG Base Excess -4.1 L ABG Hemoglobin ABG Oxyhemoglobin ABG Sodium ABG Glucose Oxyhemoglobin Sodium 131 L Chloride 97.2 L Carbon Dioxide BUN Glucose 170 H POC Glucose Arterial Blood Glucose Phenytoin 10/14/20 10/15/20 10/15/20 17:09 03:35 04:33 WBC MCHC 36 H Lymph % (Auto) 9.6 L [place] % (Auto) 10.1 H Lymph # (Auto) 1.0 L [place] # (Auto) 1.1 H Seg Neutrophils % 79.8 H Seg Neuts % (Manual) Lymphocytes % (Manual) Seg Neutrophils # 8.4 H Seg Neutrophils # Man Lymphocytes # (Manual) ABG pH 7.536 H POC ABG pCO2 POC ABG pO2 ABG pO2 185.0 H 110.2 H ABG HCO3 ABG O2 Saturation 99.2 H ABG Base Excess ABG Hemoglobin ABG Oxyhemoglobin ABG Sodium ABG Glucose Oxyhemoglobin Sodium Chloride Carbon Dioxide BUN Glucose POC Glucose Arterial Blood Glucose Phenytoin 10/15/20 10/15/20 10/16/20 04:33 13:12 00:09 WBC MCHC Lymph % (Auto) [place] % (Auto) Lymph # (Auto) [place] # (Auto) Seg Neutrophils % Seg Neuts % (Manual) Lymphocytes % (Manual) Seg Neutrophils # Seg Neutrophils # Man Lymphocytes # (Manual) ABG pH 7.297 L POC ABG pCO2 51.0 H POC ABG pO2 56.7 L ABG pO2 ABG HCO3 ABG O2 Saturation ABG Base Excess ABG Hemoglobin ABG Oxyhemoglobin 84.6 L ABG Sodium 134.4 L ABG Glucose 118 H Oxyhemoglobin Sodium Chloride Carbon Dioxide BUN Glucose 120 H POC Glucose 114 H Arterial Blood Glucose 118 H Phenytoin 10/16/20 10/16/20 10/17/20 05:42 05:46 04:08 WBC MCHC Lymph % (Auto) [place] % (Auto) Lymph # (Auto) [place] # (Auto) Seg Neutrophils % Seg Neuts % (Manual) Lymphocytes % (Manual) Seg Neutrophils # Seg Neutrophils # Man Lymphocytes # (Manual) ABG pH POC ABG pCO2 POC ABG pO2 ABG pO2 96.6 H ABG HCO3 ABG O2 Saturation ABG Base Excess ABG Hemoglobin ABG Oxyhemoglobin ABG Sodium 132.6 L ABG Glucose 112 H Oxyhemoglobin Sodium Chloride Carbon Dioxide BUN Glucose POC Glucose 106 H Arterial Blood Glucose 112 H Phenytoin 10/17/20 10/17/20 10/17/20 09:23 09:23 10:46 WBC 12.3 H MCHC Lymph % (Auto) [place] % (Auto) Lymph # (Auto) [place] # (Auto) Seg Neutrophils % Seg Neuts % (Manual) Lymphocytes % (Manual) Seg Neutrophils # Seg Neutrophils # Man Lymphocytes # (Manual) ABG pH POC ABG pCO2 POC ABG pO2 71.6 L ABG pO2 ABG HCO3 ABG O2 Saturation ABG Base Excess ABG Hemoglobin ABG Oxyhemoglobin 92.6 L ABG Sodium 134.8 L ABG Glucose 105 H Oxyhemoglobin Sodium Chloride Carbon Dioxide 21 L BUN 19 H Glucose POC Glucose Arterial Blood Glucose 105 H Phenytoin 10/17/20 10/18/20 10/18/20 23:43 04:18 08:32 WBC MCHC Lymph % (Auto) [place] % (Auto) Lymph # (Auto) [place] # (Auto) Seg Neutrophils % Seg Neuts % (Manual) Lymphocytes % (Manual) Seg Neutrophils # Seg Neutrophils # Man Lymphocytes # (Manual) ABG pH POC ABG pCO2 POC ABG pO2 81.9 L ABG pO2 ABG HCO3 ABG O2 Saturation ABG Base Excess ABG Hemoglobin ABG Oxyhemoglobin ABG Sodium 133.3 L ABG Glucose 125 H Oxyhemoglobin Sodium Chloride Carbon Dioxide BUN Glucose POC Glucose 118 H Arterial Blood Glucose 125 H Phenytoin 7.1 L 10/18/20 10/18/20 10/18/20 08:32 08:32 12:34 WBC MCHC Lymph % (Auto) 12.4 L [place] % (Auto) Lymph # (Auto) [place] # (Auto) Seg Neutrophils % 77.0 H Seg Neuts % (Manual) Lymphocytes % (Manual) Seg Neutrophils # Seg Neutrophils # Man Lymphocytes # (Manual) ABG pH POC ABG pCO2 POC ABG pO2 ABG pO2 ABG HCO3 ABG O2 Saturation ABG Base Excess ABG Hemoglobin ABG Oxyhemoglobin ABG Sodium ABG Glucose Oxyhemoglobin Sodium 135 L Chloride Carbon Dioxide BUN 21 H Glucose 131 H POC Glucose 121 H Arterial Blood Glucose Phenytoin 10/18/20 10/18/20 10/19/20 18:12 23:47 04:55 WBC MCHC Lymph % (Auto) [place] % (Auto) Lymph # (Auto) [place] # (Auto) Seg Neutrophils % Seg Neuts % (Manual) Lymphocytes % (Manual) Seg Neutrophils # Seg Neutrophils # Man Lymphocytes # (Manual) ABG pH POC ABG pCO2 POC ABG pO2 ABG pO2 ABG HCO3 27.1 H ABG O2 Saturation ABG Base Excess ABG Hemoglobin 11.1 L ABG Oxyhemoglobin ABG Sodium ABG Glucose Oxyhemoglobin 94.9 L Sodium Chloride Carbon Dioxide BUN Glucose POC Glucose 133 H 142 H Arterial Blood Glucose Phenytoin 10/19/20 10/19/20 10/19/20 06:02 07:59 12:35 WBC MCHC Lymph % (Auto) [place] % (Auto) Lymph # (Auto) [place] # (Auto) Seg Neutrophils % Seg Neuts % (Manual) Lymphocytes % (Manual) Seg Neutrophils # Seg Neutrophils # Man Lymphocytes # (Manual) ABG pH POC ABG pCO2 POC ABG pO2 ABG pO2 ABG HCO3 ABG O2 Saturation ABG Base Excess ABG Hemoglobin ABG Oxyhemoglobin ABG Sodium ABG Glucose Oxyhemoglobin Sodium Chloride Carbon Dioxide BUN Glucose 144 H POC Glucose 143 H 132 H Arterial Blood Glucose Phenytoin Chest x-ray: image reviewed (no new infiltrate) Allied health notes reviewed: nursing
[2020-10-19] MEDS: hydrALAZINE 20 MG/1 ML INJ IV PRN ×2 (14:08→20:18)
--- NOTE | 2020-10-19 16:11 | Progress Note ---
Assessment and Plan The high probability of a clinically significant, sudden or life threatening deterioration of the [cardiac, pulmonary, renal] system(s) required my full and direct attention, intervention and personal management. The aggregate critical care time was [35] minutes. This time is in addition to time spent performing reported procedures but includes the following: [x] Data Review and interpretation [x] Patient assessment and monitoring of vital signs [x] Documentation [x] Medication orders and management (1) Acute respiratory failure Current Visit: Yes Status: Acute Qualifiers: Respiratory failure complication: hypoxia Qualified Code(s): J96.01 - Acute respiratory failure with hypoxia Plan to address problem: Patient intubated and on ventilatory support, daily spontaneous breathing trials, sedation holiday, wean vent as tolerated, critical care team consulted. Patient also sedated (2) Status epilepticus Current Visit: Yes Status: Acute Plan to address problem: Continue IV Keppra 1500 twice daily and Vimpat 200 twice daily (3) Hypertensive emergency Current Visit: Yes Status: Acute Plan to address problem: Monitor blood pressure every shift, continue IV hydralazine, (4) Acute encephalopathy Current Visit: Yes Status: Acute Plan to address problem: Patient unresponsive (5) Leukocytosis Current Visit: Yes Status: Acute Plan to address problem: Chest x-ray, CBC, urinalysis, empiric IV antibiotic therapy x1 dose, repeat CBC in a.m. (6) DVT prophylaxis Current Visit: Yes Status: Acute Plan to address problem: SCD to bilateral lower extremities while in bed, prophylactic anticoagulation (7) Advance care planning Current Visit: Yes Status: Acute Plan to address problem: Disease education conducted, patient is full code, prognosis discussed, +30 minutes. Subjective Date of service: 10/19/20 Principal diagnosis: Ac hypoxemic & hypercapnic resp failure; Status epilepticus; HTNsive emerge Interval history: 65 YO Female with Obesity, HTN, presents to ED for evaluation. Patient is intubated and on ventilatory support at the time of my evaluation and is unable to provide history. Patient history is taken from EMS staff, ED staff. As per staff the patient was found down and unresponsive by her neighbor. Patient neighbor describe seizure-like activity. EMS was notified and upon arrival the patient was found to be in distress and actively seizing. Patient treated with 2 mg of Ativan which terminated the seizures. The patient was subsequently transported to [facility] for further evaluation and care of the aforementioned symptoms. Patient was seen and evaluated in the emergency department. All lab and imaging studies reviewed. Patient found to have symptoms consistent with status epilepticus which was evidenced by recurrent seizures in the emergency department with concomitant decrease in pulse oximetry to 84% on room air. The patient was also found to have hypertensive emergency with a blood pressure of 223/143. The patient was deemed unable to protect her airway and was intubated for airway protection. Patient also found to have acute encephalopathy. Patient admitted to ICU due to increased risk of decompensation. Critical care team consulted in ED. No prior admission for review. No medication listed at time of admission for reconciliation. Advanced care planning conducted in ED. Patient intubated Seizure activity present Objective - Exam Narrative Exam: Intubated - Constitutional Vitals: Vital Signs - 12hr 10/19/20 10/19/20 10/19/20 04:20 04:30 04:40 Temperature Pulse Rate 92 H 90 87 Pulse Rate [ From Monitor] Respiratory 21 15 20 Rate Blood Pressure 135/83 135/83 135/83 O2 Sat by Pulse 99 99 99 Oximetry 10/19/20 10/19/20 10/19/20 04:50 05:00 05:10 Temperature Pulse Rate 97 H 89 87 Pulse Rate [ From Monitor] Respiratory 19 20 21 Rate Blood Pressure 136/73 139/70 139/70 O2 Sat by Pulse 97 99 99 Oximetry 10/19/20 10/19/20 10/19/20 05:20 05:30 05:37 Temperature Pulse Rate 84 81 77 Pulse Rate [ From Monitor] Respiratory 20 21 Rate Blood Pressure 139/70 139/70 139/70 O2 Sat by Pulse 99 100 100 Oximetry 10/19/20 10/19/20 10/19/20 05:40 05:50 06:00 Temperature Pulse Rate 77 82 82 Pulse Rate [ From Monitor] Respiratory 19 20 20 Rate Blood Pressure 139/70 139/70 137/68 O2 Sat by Pulse 100 99 98 Oximetry 10/19/20 10/19/20 10/19/20 06:10 06:20 06:30 Temperature Pulse Rate 80 89 90 Pulse Rate [ From Monitor] Respiratory 20 19 18 Rate Blood Pressure 137/68 139/70 139/70 O2 Sat by Pulse 99 98 99 Oximetry 10/19/20 10/19/20 10/19/20 06:40 06:50 07:00 Temperature Pulse Rate 96 H 86 80 Pulse Rate [ From Monitor] Respiratory 23 21 20 Rate Blood Pressure 139/70 139/70 147/83 O2 Sat by Pulse 98 99 99 Oximetry 10/19/20 10/19/20 10/19/20 07:10 07:20 07:30 Temperature Pulse Rate 74 73 73 Pulse Rate [ From Monitor] Respiratory 20 20 20 Rate Blood Pressure 147/83 147/83 147/83 O2 Sat by Pulse 100 100 99 Oximetry 10/19/20 10/19/20 10/19/20 07:40 07:50 08:00 Temperature 98.0 F Pulse Rate 70 70 70 Pulse Rate [ 77 From Monitor] Respiratory 20 20 20 Rate Blood Pressure 147/83 147/83 147/83 O2 Sat by Pulse 100 100 100 Oximetry 10/19/20 10/19/20 10/19/20 08:03 08:10 08:20 Temperature Pulse Rate 81 80 77 Pulse Rate [ From Monitor] Respiratory 20 21 Rate Blood Pressure 113/64 113/64 113/64 O2 Sat by Pulse 100 100 97 Oximetry 10/19/20 10/19/20 10/19/20 08:30 08:40 08:50 Temperature Pulse Rate 81 79 76 Pulse Rate [ From Monitor] Respiratory 20 20 20 Rate Blood Pressure 113/64 113/64 113/64 O2 Sat by Pulse 98 99 99 Oximetry 10/19/20 10/19/20 10/19/20 09:00 09:10 09:20 Temperature Pulse Rate 86 82 78 Pulse Rate [ From Monitor] Respiratory 16 20 20 Rate Blood Pressure 159/82 159/82 159/82 O2 Sat by Pulse 99 100 100 Oximetry 10/19/20 10/19/20 10/19/20 09:30 09:40 09:50 Temperature Pulse Rate 84 84 111 H Pulse Rate [ From Monitor] Respiratory 20 18 25 H Rate Blood Pressure 159/82 159/82 159/82 O2 Sat by Pulse 99 99 98 Oximetry 10/19/20 10/19/20 10/19/20 10:00 10:10 10:20 Temperature Pulse Rate 96 H 99 H 94 H Pulse Rate [ From Monitor] Respiratory 20 20 20 Rate Blood Pressure 126/69 126/69 126/69 O2 Sat by Pulse 98 98 99 Oximetry 10/19/20 10/19/20 10/19/20 10:30 10:40 10:50 Temperature Pulse Rate 93 H 89 93 H Pulse Rate [ From Monitor] Respiratory 21 17 16 Rate Blood Pressure 126/69 126/69 126/69 O2 Sat by Pulse 99 99 98 Oximetry 10/19/20 10/19/20 10/19/20 11:00 11:09 11:10 Temperature Pulse Rate 96 H 89 89 Pulse Rate [ From Monitor] Respiratory 20 20 Rate Blood Pressure 143/84 143/84 143/84 O2 Sat by Pulse 99 99 100 Oximetry 10/19/20 10/19/20 10/19/20 11:20 11:30 11:40 Temperature Pulse Rate 89 81 79 Pulse Rate [ From Monitor] Respiratory 20 20 20 Rate Blood Pressure 143/84 143/84 143/84 O2 Sat by Pulse 100 100 100 Oximetry 10/19/20 10/19/20 10/19/20 11:50 12:00 12:10 Temperature 98.9 F Pulse Rate 76 76 75 Pulse Rate [ 74 From Monitor] Respiratory 20 20 20 Rate Blood Pressure 143/84 111/69 111/69 O2 Sat by Pulse 100 100 99 Oximetry 10/19/20 10/19/20 10/19/20 12:20 12:30 12:40 Temperature Pulse Rate 76 75 78 Pulse Rate [ From Monitor] Respiratory 20 20 20 Rate Blood Pressure 111/69 111/69 111/69 O2 Sat by Pulse 100 100 99 Oximetry 10/19/20 10/19/20 10/19/20 12:50 13:00 13:10 Temperature Pulse Rate 81 77 79 Pulse Rate [ From Monitor] Respiratory 20 20 20 Rate Blood Pressure 111/69 133/75 133/75 O2 Sat by Pulse 100 99 100 Oximetry 10/19/20 10/19/20 10/19/20 13:20 13:30 13:40 Temperature Pulse Rate 88 83 88 Pulse Rate [ From Monitor] Respiratory 21 20 17 Rate Blood Pressure 133/75 133/75 133/75 O2 Sat by Pulse 99 100 99 Oximetry 10/19/20 10/19/20 10/19/20 13:50 14:00 14:08 Temperature Pulse Rate 85 94 H 86 Pulse Rate [ From Monitor] Respiratory 20 25 H Rate Blood Pressure 133/75 182/99 179/105 O2 Sat by Pulse 100 99 Oximetry 10/19/20 10/19/20 10/19/20 14:10 14:20 14:30 Temperature Pulse Rate 91 H 87 91 H Pulse Rate [ From Monitor] Respiratory 17 18 20 Rate Blood Pressure 179/105 179/105 179/105 O2 Sat by Pulse 99 98 99 Oximetry 10/19/20 10/19/20 10/19/20 14:40 14:50 15:00 Temperature Pulse Rate 90 98 H 98 H Pulse Rate [ From Monitor] Respiratory 21 25 H 24 Rate Blood Pressure 156/80 156/80 149/69 O2 Sat by Pulse 99 98 98 Oximetry 10/19/20 10/19/20 10/19/20 15:10 15:20 15:30 Temperature Pulse Rate 92 H 98 H 98 H Pulse Rate [ From Monitor] Respiratory 22 21 33 H Rate Blood Pressure 149/69 149/69 149/69 O2 Sat by Pulse 96 95 98 Oximetry 10/19/20 10/19/20 10/19/20 15:40 15:50 16:00 Temperature Pulse Rate 100 H 105 H 108 H Pulse Rate [ 69 From Monitor] Respiratory 26 H 28 H 34 H Rate Blood Pressure 149/69 149/69 171/95 O2 Sat by Pulse 97 97 97 Oximetry General appearance: Present: no acute distress, well-nourished - EENT Eyes: PERRL, EOM intact ENT: hearing intact, clear oral mucosa Ears: bilateral: normal - Neck Neck: supple, normal ROM - Respiratory Respiratory effort: normal Respiratory: bilateral: CTA - Breasts Breasts: normal - Cardiovascular Heart rate: 78 Rhythm: regular Heart Sounds: Present: S1 & S2. Absent: gallop, rub Extremities: pulses intact, No edema, normal color, Full ROM - Gastrointestinal General gastrointestinal: Present: soft, non-tender, non-distended, normal bowel sounds - Genitourinary Female genitourinary: normal - Integumentary Integumentary: clear, warm, dry - Musculoskeletal Musculoskeletal: 1, strength equal bilaterally - Neurologic Neurologic: moves all extremities - Psychiatric Psychiatric: other (Patient intubated) - Labs CBC & Chem 7: 10/30/20 07:53 10/30/20 07:53 Labs: Abnormal lab results 10/18/20 10/18/20 10/18/20 Range/Units 12:34 18:12 23:47 ABG HCO3 (20.0-26.0) mmol/L ABG Hemoglobin (12.0-16.0) gm/dl Oxyhemoglobin (95.0-99.0) % Glucose (65-100) mg/dL POC Glucose 121 H 133 H 142 H (70-105) mg/dL 10/19/20 10/19/20 10/19/20 Range/Units 04:55 06:02 07:59 ABG HCO3 27.1 H (20.0-26.0) mmol/L ABG Hemoglobin 11.1 L (12.0-16.0) gm/dl Oxyhemoglobin 94.9 L (95.0-99.0) % Glucose 144 H (65-100) mg/dL POC Glucose 143 H (70-105) mg/dL 10/19/20 Range/Units 12:35 ABG HCO3 (20.0-26.0) mmol/L ABG Hemoglobin (12.0-16.0) gm/dl Oxyhemoglobin (95.0-99.0) % Glucose (65-100) mg/dL POC Glucose 132 H (70-105) mg/dL HEART Score - HEART Score Troponin: Troponin T 0.015 ng/mL (0.00-0.029) 10/14/20 13:36
[2020-10-19] MEDS: fentaNYL 100 MCG/2 ML INJ IV PRN (16:51)
[2020-10-19] MEDS: fentaNYL DRIP Premix 2,000 MCG/100 ML BAG IV SCH (18:26)
[2020-10-19] MEDS: FAMOTIDINE 20 MG TAB PO SCH (22:00)
[2020-10-19] MEDS: POLYETHYLENE GLYCOL 3350 17 GM POWDER PO SCH (22:15)
[2020-10-20] MEDS: DOCUSATE SODIUM 100 MG/10 ML ORAL LIQD PO SCH ×3 (01:55→22:21)
[2020-10-20] MEDS: HEPARIN 5,000 UNIT/1 ML VIAL SUB-Q SCH ×3 (01:58→22:19)
[2020-10-20] MEDS: levETIRAcetam 1,500 MG in DEXTROSE 5% IN WATER 100 ML IV SCH ×3 (02:04→22:22)
[2020-10-20] MEDS: fentaNYL DRIP Premix 2,000 MCG/100 ML BAG IV SCH ×3 (02:25→18:05)
[2020-10-20] MEDS: LACOSAMIDE 200 MG in SODIUM CHLORIDE 0.9% 100 ML IV SCH ×2 (04:05→15:08)
--- NOTE | 2020-10-20 05:48 | XRay Report ---
CHEST 1 VIEW 10/20/2020 4:39 AM INDICATION / CLINICAL INFORMATION: follow up respiratory failure. COMPARISON: 10/19/2020 FINDINGS: SUPPORT DEVICES: Stable, satisfactory device positioning. HEART / MEDIASTINUM: Stable. LUNGS / PLEURA: Improved left basilar subsegmental atelectasis. No pneumothorax. ADDITIONAL FINDINGS: No significant additional findings. IMPRESSION: 1. Improved left basilar subsegmental atelectasis. Signer Name: Dio Keenan MD Signed: 10/20/2020 5:43 AM Workstation Name: [id number]
[2020-10-20] MEDS: PHENYTOIN 100 MG/2 ML VIAL IV SCH ×3 (06:16→22:19)
[2020-10-20] MEDS: hydrALAZINE 20 MG/1 ML INJ IV PRN ×2 (07:48→14:13)
[2020-10-20] MEDS: LORazepam 2 MG/ML VIAL IV PRN ×2 (08:14→14:17)
[2020-10-20] MEDS: QUEtiapine 200 MG TAB PO SCH ×2 (09:27→22:27)
[2020-10-20] MEDS: FAMOTIDINE 20 MG TAB PO SCH ×2 (09:27→22:21)
--- NOTE | 2020-10-20 14:35 | Progress Note ---
Assessment and Plan Acute hypoxemic and hypercapnic respiratory failure. Acute encephalopathy (Toxic / metabolic). Status epilepticus. Hypertensive emergency at presentation. History of a brain aneurysm repair. Obesity. History of hypertension. Leukocytosis. Mild hyponatremia. Hyperglycemia. - IVNS @ 75/hr X 1 liter - repeat BMP and optimize K+ / electrolytes - get KUB stat and address - low dose reglan - continue bowel regimen with colace & miralax - continue daily SAT's and SBT assessment as tolerated - tentative trial of extubation next 24-48 hours but need to address abdominal distension now - continue care as below otherwise; - continue Vimpat & Keppra (Adjust per neurologist) - continue enteral nutrition at goal rate as tolerated - continue Seroquel 200 mg p.o. bid to spare IV sedatives - continue to wean supplemental oxygen for target O2 sat's > 92% acutely - VAP bundle addressed - continue lung protective strategies - continue bronchodilators with pulmonary hygiene per RT - wean per pulmonary driven protocols otherwise - sedation prn for target RASS -1 to -2 - begin enteral nutritional support at goal rate as tolerated - empiric AB's coverage per ID rec's otherwise - accuchecks with glycemic control per SSI (While critically ill target blood glucose of 140-180 mg/dL; avoid hypoglycemia) - avoid nephrotoxins, renally dose all medications - continue Keppra as AED - continue to avoid benzodiazepine's, reduce the possibility of delirium - prn analgesia per CPOT score - Maintenance of sleep-wake cycle, avoid delirium - continue to avoid benzodiazepine's, reduce the possibility of delirium - aspiration precautions - G.I. & VTE prophylaxis - PT/OT/ROM exercises - continue mobility protocols for pressure ulcer prophylaxis - Monitor hemodynamics closely - continue other care per attending / other consultants - discharge planning ongoing concurrently .... Re-evaluate in am & prn CONDITION: CRITICAL PROGNOSIS: GUARDED CODE STATUS: FULL CODE The high probability of a clinically significant, sudden or life-threatening deterioration of the [respiratory, cardiovascular & neurologic] system(s) required my full and direct attention, intervention and personal management. The aggregate critical care time was [32] minutes without overlap. Time includes spent on; [x] Data Review and interpretation [x] Patient assessment and monitoring of vital signs [x] Documentation [x] Medication orders and management Subjective Date of service: 10/20/20 Principal diagnosis: Ac hypoxemic & hypercapnic resp failure; Status epilepticu s; HTNsive emerge Interval history: Patient is seen today for: Ac hypoxemic and hypercapnic resp failure; Ac. encephalopathy; Status epilepticus; HTNsive emergency; History of a brain aneurysm repair; Obesity Seen and examined at bedside; 24hour events reviewed; nursing and respiratory care staff consulted; no adverse overnight events reported to me; resting peacefully in bed; tolerating SBT now; she is somnolent to lethargic though; + abdomen is distended but no emesis reported; also low urine output per RN Objective Vital Signs - 12hr 10/20/20 10/20/20 10/20/20 02:40 02:50 03:00 Temperature Pulse Rate 96 H 92 H 92 H Pulse Rate [ From Monitor] Pulse Rate [ Left Radial] Pulse Rate [ Right Radial] Respiratory 21 20 20 Rate Blood Pressure 146/72 146/72 146/72 O2 Sat by Pulse 98 98 98 Oximetry 10/20/20 10/20/20 10/20/20 03:10 03:20 03:30 Temperature Pulse Rate 92 H 98 H 95 H Pulse Rate [ From Monitor] Pulse Rate [ Left Radial] Pulse Rate [ Right Radial] Respiratory 20 22 20 Rate Blood Pressure 146/72 146/72 146/72 O2 Sat by Pulse 98 98 98 Oximetry 10/20/20 10/20/20 10/20/20 03:40 03:50 03:52 Temperature Pulse Rate 95 H 90 94 H Pulse Rate [ From Monitor] Pulse Rate [ Left Radial] Pulse Rate [ Right Radial] Respiratory 20 20 Rate Blood Pressure 146/72 146/72 156/71 O2 Sat by Pulse 98 98 98 Oximetry 10/20/20 10/20/20 10/20/20 04:00 04:10 04:20 Temperature 98.3 F Pulse Rate 101 H 89 90 Pulse Rate [ 78 From Monitor] Pulse Rate [ Left Radial] Pulse Rate [ Right Radial] Respiratory 22 20 22 Rate Blood Pressure 153/84 153/84 153/84 O2 Sat by Pulse 100 98 98 Oximetry 10/20/20 10/20/20 10/20/20 04:30 04:40 04:48 Temperature Pulse Rate 93 H 90 Pulse Rate [ 78 From Monitor] Pulse Rate [ Left Radial] Pulse Rate [ Right Radial] Respiratory 22 20 22 Rate Blood Pressure 153/84 153/84 O2 Sat by Pulse 98 98 100 Oximetry 10/20/20 10/20/20 10/20/20 04:50 05:00 05:10 Temperature Pulse Rate 93 H 99 H 97 H Pulse Rate [ From Monitor] Pulse Rate [ Left Radial] Pulse Rate [ Right Radial] Respiratory 21 17 20 Rate Blood Pressure 153/84 168/109 168/109 O2 Sat by Pulse 98 95 98 Oximetry 10/20/20 10/20/20 10/20/20 05:20 05:30 05:40 Temperature Pulse Rate 96 H 97 H 94 H Pulse Rate [ From Monitor] Pulse Rate [ Left Radial] Pulse Rate [ Right Radial] Respiratory 21 21 20 Rate Blood Pressure 168/109 165/88 145/89 O2 Sat by Pulse 98 97 96 Oximetry 10/20/20 10/20/20 10/20/20 05:50 06:00 06:10 Temperature Pulse Rate 93 H 90 91 H Pulse Rate [ From Monitor] Pulse Rate [ Left Radial] Pulse Rate [ Right Radial] Respiratory 20 20 20 Rate Blood Pressure 145/89 147/81 147/81 O2 Sat by Pulse 97 95 97 Oximetry 10/20/20 10/20/20 10/20/20 06:20 06:30 06:40 Temperature Pulse Rate 91 H 90 94 H Pulse Rate [ From Monitor] Pulse Rate [ Left Radial] Pulse Rate [ Right Radial] Respiratory 20 20 20 Rate Blood Pressure 147/81 147/81 147/81 O2 Sat by Pulse 97 97 97 Oximetry 10/20/20 10/20/20 10/20/20 06:50 07:00 07:10 Temperature Pulse Rate 93 H 93 H 92 H Pulse Rate [ From Monitor] Pulse Rate [ Left Radial] Pulse Rate [ Right Radial] Respiratory 20 20 20 Rate Blood Pressure 147/81 168/94 168/94 O2 Sat by Pulse 97 95 97 Oximetry 10/20/20 10/20/20 10/20/20 07:20 07:30 07:40 Temperature Pulse Rate 90 89 90 Pulse Rate [ From Monitor] Pulse Rate [ Left Radial] Pulse Rate [ Right Radial] Respiratory 20 20 21 Rate Blood Pressure 168/94 168/94 168/94 O2 Sat by Pulse 97 97 97 Oximetry 10/20/20 10/20/20 10/20/20 07:48 07:50 08:00 Temperature 99.2 F Pulse Rate 96 H 97 H 103 H Pulse Rate [ From Monitor] Pulse Rate [ 104 H Left Radial] Pulse Rate [ 104 H Right Radial] Respiratory 21 17 Rate Blood Pressure 180/97 143/77 143/82 O2 Sat by Pulse 97 96 Oximetry 10/20/20 10/20/20 10/20/20 08:10 08:20 08:24 Temperature Pulse Rate 116 H 111 H 112 H Pulse Rate [ From Monitor] Pulse Rate [ Left Radial] Pulse Rate [ Right Radial] Respiratory 39 H 22 22 Rate Blood Pressure 143/77 143/77 O2 Sat by Pulse 96 96 96 Oximetry 10/20/20 10/20/20 10/20/20 08:30 08:40 08:50 Temperature Pulse Rate 111 H 110 H 109 H Pulse Rate [ From Monitor] Pulse Rate [ Left Radial] Pulse Rate [ Right Radial] Respiratory 22 17 19 Rate Blood Pressure 143/77 143/82 143/82 O2 Sat by Pulse 96 96 96 Oximetry 10/20/20 10/20/20 10/20/20 09:00 09:10 09:20 Temperature Pulse Rate 107 H 102 H 104 H Pulse Rate [ From Monitor] Pulse Rate [ Left Radial] Pulse Rate [ Right Radial] Respiratory 19 16 17 Rate Blood Pressure 143/82 140/81 140/81 O2 Sat by Pulse 96 96 96 Oximetry 10/20/20 10/20/20 10/20/20 09:30 09:40 09:50 Temperature Pulse Rate 103 H 103 H 101 H Pulse Rate [ From Monitor] Pulse Rate [ Left Radial] Pulse Rate [ Right Radial] Respiratory 18 17 15 Rate Blood Pressure 140/81 134/73 134/73 O2 Sat by Pulse 96 96 96 Oximetry 10/20/20 10/20/20 10/20/20 10:00 10:10 10:20 Temperature Pulse Rate 101 H 101 H 100 H Pulse Rate [ From Monitor] Pulse Rate [ Left Radial] Pulse Rate [ Right Radial] Respiratory 16 18 15 Rate Blood Pressure 134/73 148/89 148/89 O2 Sat by Pulse 96 96 96 Oximetry 10/20/20 10/20/20 10/20/20 10:30 10:40 10:50 Temperature Pulse Rate 101 H 102 H 101 H Pulse Rate [ From Monitor] Pulse Rate [ Left Radial] Pulse Rate [ Right Radial] Respiratory 16 18 16 Rate Blood Pressure 148/89 144/82 144/82 O2 Sat by Pulse 96 97 96 Oximetry 1110/20/20 10/20/20 11:00 11:10 11:20 Temperature Pulse Rate 102 H 101 H 101 H Pulse Rate [ From Monitor] Pulse Rate [ Left Radial] Pulse Rate [ Right Radial] Respiratory 16 16 19 Rate Blood Pressure 144/82 146/77 146/77 O2 Sat by Pulse 96 97 96 Oximetry 10/20/20 10/20/20 10/20/20 11:24 11:30 11:40 Temperature Pulse Rate 103 H 100 H 101 H Pulse Rate [ From Monitor] Pulse Rate [ Left Radial] Pulse Rate [ Right Radial] Respiratory 16 15 17 Rate Blood Pressure 146/77 146/77 144/70 O2 Sat by Pulse 97 97 97 Oximetry 10/20/20 10/20/20 10/20/20 11:50 12:00 12:10 Temperature 98.9 F Pulse Rate 101 H 99 H 100 H Pulse Rate [ From Monitor] Pulse Rate [ Left Radial] Pulse Rate [ Right Radial] Respiratory 17 15 19 Rate Blood Pressure 144/70 144/70 142/68 O2 Sat by Pulse 97 97 97 Oximetry 10/20/20 10/20/20 10/20/20 12:20 12:30 12:40 Temperature Pulse Rate 100 H 101 H 101 H Pulse Rate [ From Monitor] Pulse Rate [ Left Radial] Pulse Rate [ Right Radial] Respiratory 19 16 16 Rate Blood Pressure 142/68 151/77 151/77 O2 Sat by Pulse 98 94 97 Oximetry 10/20/20 10/20/20 10/20/20 12:50 13:00 13:10 Temperature Pulse Rate 100 H 99 H 101 H Pulse Rate [ From Monitor] Pulse Rate [ Left Radial] Pulse Rate [ Right Radial] Respiratory 21 14 17 Rate Blood Pressure 151/77 151/77 153/87 O2 Sat by Pulse 97 97 97 Oximetry 10/20/20 10/20/20 10/20/20 13:20 13:30 13:40 Temperature Pulse Rate 102 H 101 H 100 H Pulse Rate [ From Monitor] Pulse Rate [ Left Radial] Pulse Rate [ Right Radial] Respiratory 22 15 16 Rate Blood Pressure 153/87 160/91 160/91 O2 Sat by Pulse 97 96 97 Oximetry 10/20/20 10/20/20 13:50 14:13 Temperature Pulse Rate 101 H 102 H Pulse Rate [ From Monitor] Pulse Rate [ Left Radial] Pulse Rate [ Right Radial] Respiratory 20 Rate Blood Pressure 160/91 168/92 O2 Sat by Pulse 97 Oximetry Constitutional: no acute distress, other (elderly obese female without significant patient / ventilator dyssynchrony) Eyes: non-icteric ENT: oropharynx moist, other (ETT 24 cm NATIVIDAD) Neck: supple, no lymphadenopathy, no JVD Effort: mildly labored Ascultation: Bilateral: diminished breath sounds, rhonchi (scant) Percussion: Bilateral: not dull Cardiovascular: regular rate and rhythm Gastrointestinal: normoactive bowel sounds, soft, non-tender, other (Distended, firm) Integumentary: normal Extremities: no cyanosis, no edema, pink and warm, pulses normal Neurologic: non-focal exam (grossly), pupils equal and round, other (sedated but responds appropriately) Psychiatric: other (sedated) CBC and BMP: 10/19/20 07:59 10/19/20 07:59 ABG, PT/INR, D-dimer: ABG ABG pH 7.434 (7.320-7.450) 10/20/20 03:25 POC ABG pCO2 38.5 mmHg (32.0-48.0) 10/20/20 03:25 ABG pCO2 46.2 mm Hg 10/19/20 04:55 POC ABG pO2 88.4 mmHg (83-108) 10/20/20 03:25 ABG pO2 84.7 mm Hg (80.0-90.0) 10/19/20 04:55 POC ABG HCO3 25.2 10/20/20 03:25 ABG O2 Saturation 96.7 % (95.0-99.0) 10/19/20 04:55 PT/INR, D-dimer PT 14.0 Sec. (12.2-14.9) 10/14/20 13:36 INR 1.07 (0.87-1.13) 10/14/20 13:36 Abnormal lab findings: Abnormal Labs 10/14/20 10/14/20 10/14/20 13:36 13:36 14:22 WBC 14.7 H MCHC 35 H Lymph % (Auto) [place] % (Auto) Lymph # (Auto) [place] # (Auto) Seg Neutrophils % Seg Neuts % (Manual) 89.0 H Lymphocytes % (Manual) 4.0 L Seg Neutrophils # Seg Neutrophils # Man 13.1 H Lymphocytes # (Manual) 0.6 L ABG pH 7.298 L POC ABG pCO2 POC ABG pO2 ABG pO2 285.8 H ABG HCO3 ABG O2 Saturation 99.5 H ABG Base Excess -4.1 L ABG Hemoglobin ABG Oxyhemoglobin ABG Sodium ABG Glucose Oxyhemoglobin Sodium 131 L Chloride 97.2 L Carbon Dioxide BUN Glucose 170 H POC Glucose Arterial Blood Glucose Phenytoin 10/14/20 10/15/20 10/15/20 17:09 03:35 04:33 WBC MCHC 36 H Lymph % (Auto) 9.6 L [place] % (Auto) 10.1 H Lymph # (Auto) 1.0 L [place] # (Auto) 1.1 H Seg Neutrophils % 79.8 H Seg Neuts % (Manual) Lymphocytes % (Manual) Seg Neutrophils # 8.4 H Seg Neutrophils # Man Lymphocytes # (Manual) ABG pH 7.536 H POC ABG pCO2 POC ABG pO2 ABG pO2 185.0 H 110.2 H ABG HCO3 ABG O2 Saturation 99.2 H ABG Base Excess ABG Hemoglobin ABG Oxyhemoglobin ABG Sodium ABG Glucose Oxyhemoglobin Sodium Chloride Carbon Dioxide BUN Glucose POC Glucose Arterial Blood Glucose Phenytoin 10/15/20 10/15/20 10/16/20 04:33 13:12 00:09 WBC MCHC Lymph % (Auto) [place] % (Auto) Lymph # (Auto) [place] # (Auto) Seg Neutrophils % Seg Neuts % (Manual) Lymphocytes % (Manual) Seg Neutrophils # Seg Neutrophils # Man Lymphocytes # (Manual) ABG pH 7.297 L POC ABG pCO2 51.0 H POC ABG pO2 56.7 L ABG pO2 ABG HCO3 ABG O2 Saturation ABG Base Excess ABG Hemoglobin ABG Oxyhemoglobin 84.6 L ABG Sodium 134.4 L ABG Glucose 118 H Oxyhemoglobin Sodium Chloride Carbon Dioxide BUN Glucose 120 H POC Glucose 114 H Arterial Blood Glucose 118 H Phenytoin 10/16/20 10/16/20 10/17/20 05:42 05:46 04:08 WBC MCHC Lymph % (Auto) [place] % (Auto) Lymph # (Auto) [place] # (Auto) Seg Neutrophils % Seg Neuts % (Manual) Lymphocytes % (Manual) Seg Neutrophils # Seg Neutrophils # Man Lymphocytes # (Manual) ABG pH POC ABG pCO2 POC ABG pO2 ABG pO2 96.6 H ABG HCO3 ABG O2 Saturation ABG Base Excess ABG Hemoglobin ABG Oxyhemoglobin ABG Sodium 132.6 L ABG Glucose 112 H Oxyhemoglobin Sodium Chloride Carbon Dioxide BUN Glucose POC Glucose 106 H Arterial Blood Glucose 112 H Phenytoin 10/17/20 10/17/20 10/17/20 09:23 09:23 10:46 WBC 12.3 H MCHC Lymph % (Auto) [place] % (Auto) Lymph # (Auto) [place] # (Auto) Seg Neutrophils % Seg Neuts % (Manual) Lymphocytes % (Manual) Seg Neutrophils # Seg Neutrophils # Man Lymphocytes # (Manual) ABG pH POC ABG pCO2 POC ABG pO2 71.6 L ABG pO2 ABG HCO3 ABG O2 Saturation ABG Base Excess ABG Hemoglobin ABG Oxyhemoglobin 92.6 L ABG Sodium 134.8 L ABG Glucose 105 H Oxyhemoglobin Sodium Chloride Carbon Dioxide 21 L BUN 19 H Glucose POC Glucose Arterial Blood Glucose 105 H Phenytoin 10/17/20 10/18/20 10/18/20 23:43 04:18 08:32 WBC MCHC Lymph % (Auto) [place] % (Auto) Lymph # (Auto) [place] # (Auto) Seg Neutrophils % Seg Neuts % (Manual) Lymphocytes % (Manual) Seg Neutrophils # Seg Neutrophils # Man Lymphocytes # (Manual) ABG pH POC ABG pCO2 POC ABG pO2 81.9 L ABG pO2 ABG HCO3 ABG O2 Saturation ABG Base Excess ABG Hemoglobin ABG Oxyhemoglobin ABG Sodium 133.3 L ABG Glucose 125 H Oxyhemoglobin Sodium Chloride Carbon Dioxide BUN Glucose POC Glucose 118 H Arterial Blood Glucose 125 H Phenytoin 7.1 L 10/18/20 10/18/20 10/18/20 08:32 08:32 12:34 WBC MCHC Lymph % (Auto) 12.4 L [place] % (Auto) Lymph # (Auto) [place] # (Auto) Seg Neutrophils % 77.0 H Seg Neuts % (Manual) Lymphocytes % (Manual) Seg Neutrophils # Seg Neutrophils # Man Lymphocytes # (Manual) ABG pH POC ABG pCO2 POC ABG pO2 ABG pO2 ABG HCO3 ABG O2 Saturation ABG Base Excess ABG Hemoglobin ABG Oxyhemoglobin ABG Sodium ABG Glucose Oxyhemoglobin Sodium 135 L Chloride Carbon Dioxide BUN 21 H Glucose 131 H POC Glucose 121 H Arterial Blood Glucose Phenytoin 10/18/20 10/18/20 10/19/20 18:12 23:47 04:55 WBC MCHC Lymph % (Auto) [place] % (Auto) Lymph # (Auto) [place] # (Auto) Seg Neutrophils % Seg Neuts % (Manual) Lymphocytes % (Manual) Seg Neutrophils # Seg Neutrophils # Man Lymphocytes # (Manual) ABG pH POC ABG pCO2 POC ABG pO2 ABG pO2 ABG HCO3 27.1 H ABG O2 Saturation ABG Base Excess ABG Hemoglobin 11.1 L ABG Oxyhemoglobin ABG Sodium ABG Glucose Oxyhemoglobin 94.9 L Sodium Chloride Carbon Dioxide BUN Glucose POC Glucose 133 H 142 H Arterial Blood Glucose Phenytoin 10/19/20 10/19/20 10/19/20 06:02 07:59 12:35 WBC MCHC Lymph % (Auto) [place] % (Auto) Lymph # (Auto) [place] # (Auto) Seg Neutrophils % Seg Neuts % (Manual) Lymphocytes % (Manual) Seg Neutrophils # Seg Neutrophils # Man Lymphocytes # (Manual) ABG pH POC ABG pCO2 POC ABG pO2 ABG pO2 ABG HCO3 ABG O2 Saturation ABG Base Excess ABG Hemoglobin ABG Oxyhemoglobin ABG Sodium ABG Glucose Oxyhemoglobin Sodium Chloride Carbon Dioxide BUN Glucose 144 H POC Glucose 143 H 132 H Arterial Blood Glucose Phenytoin 10/19/20 10/19/20 10/19/20 16:12 16:31 23:17 WBC MCHC Lymph % (Auto) [place] % (Auto) Lymph # (Auto) [place] # (Auto) Seg Neutrophils % Seg Neuts % (Manual) Lymphocytes % (Manual) Seg Neutrophils # Seg Neutrophils # Man Lymphocytes # (Manual) ABG pH 7.461 H POC ABG pCO2 POC ABG pO2 75.8 L ABG pO2 ABG HCO3 ABG O2 Saturation ABG Base Excess ABG Hemoglobin ABG Oxyhemoglobin ABG Sodium 134.0 L ABG Glucose 156 H Oxyhemoglobin Sodium Chloride Carbon Dioxide BUN Glucose POC Glucose 120 H 128 H Arterial Blood Glucose 156 H Phenytoin 10/20/20 10/20/20 10/20/20 03:25 05:26 12:12 WBC MCHC Lymph % (Auto) [place] % (Auto) Lymph # (Auto) [place] # (Auto) Seg Neutrophils % Seg Neuts % (Manual) Lymphocytes % (Manual) Seg Neutrophils # Seg Neutrophils # Man Lymphocytes # (Manual) ABG pH POC ABG pCO2 POC ABG pO2 ABG pO2 ABG HCO3 ABG O2 Saturation ABG Base Excess ABG Hemoglobin ABG Oxyhemoglobin ABG Sodium 134.0 L ABG Glucose 129 H Oxyhemoglobin Sodium Chloride Carbon Dioxide BUN Glucose POC Glucose 125 H 136 H Arterial Blood Glucose 129 H Phenytoin Chest x-ray: image reviewed (clear) Allied health notes reviewed: nursing
[2020-10-20] MEDS: METOCLOPRAMIDE 10 MG/2 ML INJ IV SCH ×2 (15:22→22:44)
[2020-10-20] MEDS: SODIUM CHLORIDE 0.9% 1000 ML 1,000 ML IV SCH (15:29)
--- NOTE | 2020-10-20 15:31 | XRay Report ---
ABDOMEN ONE VIEW INDICATION / CLINICAL INFORMATION: Distension. COMPARISON: None available. FINDINGS: Nasogastric tube is present in the stomach. There is marked colonic distention seen throughout the en tire colon. There is a small amount of air seen in the rectum. This raises the question of sigmoid vo lvulus Signer Name: Manuelito Scanlon MD FACR Signed: 10/20/2020 3:26 PM Workstation Name: [employer] [id number]
--- NOTE | 2020-10-20 15:52 | Progress Note ---
Assessment and Plan - Patient Problems (1) Acute encephalopathy Current Visit: Yes Status: Acute Plan to address problem: Plan: 1) Likely from multifactorial and could be postictal. May need more time to recover from post ictal phase and or may be side effects from antiepileptic drug like drowsiness and sleepiness. 2) Please give IV 500 mg fosphenytoin sodium and continue her IV Dilantin dose 100 mg 3 times a day. 3) Continue IV Keppra and Vimpat at current dose. 4) Neurosurgery consultation or interventional neuroradiologist consultation for MCA aneurysm evaluation. 5) Seizure precautions 6) DVT prophylaxis as per floor protocol 7) Consider repeating EEG in a day or 2. Discussed with the treating nurse in great detail. Please call us if you have any questions Raina Montana MD Tele-neurologist [phone] (2) Status epilepticus Current Visit: Yes Status: Acute Plan to address problem: Plan: 1) Please see above as described in great detail Subjective Date of service: 10/20/20 Principal diagnosis: Ac hypoxemic & hypercapnic resp failure; Status epilepticus; HTNsive emerge Interval history: Patient is seen and examined. She remained intubated but off of Versed drip however, the nurse said she is on fentanyl. Her Dilantin level is 7.1. She had an EEG done which revealed periodic lateralizing epileptiform discharges on the right frontal lobe(PLED). Her CT scan of the brain revealed left brain craniotomy done. There is also a suspicion of MCA aneurysm as per radiologist report. As per her treating nurse there is no visible seizure type activities at this time. She is on intravenous Keppra, Vimpat, and Dilantin at this time. Objective - Exam Narrative Exam: limited examination since patient is intubated and unresponsive to verbal as well as painful stimuli. Her pupils are reacting, no nystagmus is visible by the tele- neuro nurse. no twitching of the face or jerking of the arms and legs visible. She does move both arms and legs to painful stimuli. The rest of the neuro exam is difficult to examine at this time. - Vital Sign Vital Signs - 12hr 10/20/20 10/20/20 10/20/20 03:50 03:52 04:00 Temperature 98.3 F Pulse Rate 90 94 H 101 H Pulse Rate [ 78 From Monitor] Pulse Rate [ Left Radial] Pulse Rate [ Right Radial] Respiratory 20 22 Rate Blood Pressure 146/72 156/71 153/84 O2 Sat by Pulse 98 98 100 Oximetry 10/20/20 10/20/20 10/20/20 04:10 04:20 04:30 Temperature Pulse Rate 89 90 93 H Pulse Rate [ From Monitor] Pulse Rate [ Left Radial] Pulse Rate [ Right Radial] Respiratory 20 22 22 Rate Blood Pressure 153/84 153/84 153/84 O2 Sat by Pulse 98 98 98 Oximetry 10/20/20 10/20/20 10/20/20 04:40 04:48 04:50 Temperature Pulse Rate 90 93 H Pulse Rate [ 78 From Monitor] Pulse Rate [ Left Radial] Pulse Rate [ Right Radial] Respiratory 20 22 21 Rate Blood Pressure 153/84 153/84 O2 Sat by Pulse 98 100 98 Oximetry 10/20/20 10/20/20 10/20/20 05:00 05:10 05:20 Temperature Pulse Rate 99 H 97 H 96 H Pulse Rate [ From Monitor] Pulse Rate [ Left Radial] Pulse Rate [ Right Radial] Respiratory 17 20 21 Rate Blood Pressure 168/109 168/109 168/109 O2 Sat by Pulse 95 98 98 Oximetry 10/20/20 10/20/20 10/20/20 05:30 05:40 05:50 Temperature Pulse Rate 97 H 94 H 93 H Pulse Rate [ From Monitor] Pulse Rate [ Left Radial] Pulse Rate [ Right Radial] Respiratory 21 20 20 Rate Blood Pressure 165/88 145/89 145/89 O2 Sat by Pulse 97 96 97 Oximetry 10/20/20 10/20/20 10/20/20 06:00 06:10 06:20 Temperature Pulse Rate 90 91 H 91 H Pulse Rate [ From Monitor] Pulse Rate [ Left Radial] Pulse Rate [ Right Radial] Respiratory 20 20 20 Rate Blood Pressure 147/81 147/81 147/81 O2 Sat by Pulse 95 97 97 Oximetry 10/20/20 10/20/20 10/20/20 06:30 06:40 06:50 Temperature Pulse Rate 90 94 H 93 H Pulse Rate [ From Monitor] Pulse Rate [ Left Radial] Pulse Rate [ Right Radial] Respiratory 20 20 20 Rate Blood Pressure 147/81 147/81 147/81 O2 Sat by Pulse 97 97 97 Oximetry 10/20/20 10/20/20 10/20/20 07:00 07:10 07:20 Temperature Pulse Rate 93 H 92 H 90 Pulse Rate [ From Monitor] Pulse Rate [ Left Radial] Pulse Rate [ Right Radial] Respiratory 20 20 20 Rate Blood Pressure 168/94 168/94 168/94 O2 Sat by Pulse 95 97 97 Oximetry 10/20/20 10/20/20 10/20/20 07:30 07:40 07:48 Temperature Pulse Rate 89 90 96 H Pulse Rate [ From Monitor] Pulse Rate [ Left Radial] Pulse Rate [ Right Radial] Respiratory 20 21 Rate Blood Pressure 168/94 168/94 180/97 O2 Sat by Pulse 97 97 Oximetry 10/20/20 10/20/20 10/20/20 07:50 08:00 08:10 Temperature 99.2 F Pulse Rate 97 H 103 H 116 H Pulse Rate [ From Monitor] Pulse Rate [ 104 H Left Radial] Pulse Rate [ 104 H Right Radial] Respiratory 21 17 39 H Rate Blood Pressure 143/77 143/82 143/77 O2 Sat by Pulse 97 96 96 Oximetry 10/20/20 10/20/20 10/20/20 08:20 08:24 08:30 Temperature Pulse Rate 111 H 112 H 111 H Pulse Rate [ From Monitor] Pulse Rate [ Left Radial] Pulse Rate [ Right Radial] Respiratory 22 22 22 Rate Blood Pressure 143/77 143/77 O2 Sat by Pulse 96 96 96 Oximetry 10/20/20 10/20/20 10/20/20 08:40 08:50 09:00 Temperature Pulse Rate 110 H 109 H 107 H Pulse Rate [ From Monitor] Pulse Rate [ Left Radial] Pulse Rate [ Right Radial] Respiratory 17 19 19 Rate Blood Pressure 143/82 143/82 143/82 O2 Sat by Pulse 96 96 96 Oximetry 10/20/20 10/20/20 10/20/20 09:10 09:20 09:30 Temperature Pulse Rate 102 H 104 H 103 H Pulse Rate [ From Monitor] Pulse Rate [ Left Radial] Pulse Rate [ Right Radial] Respiratory 16 17 18 Rate Blood Pressure 140/81 140/81 140/81 O2 Sat by Pulse 96 96 96 Oximetry 10/20/20 10/20/20 10/20/20 09:40 09:50 10:00 Temperature Pulse Rate 103 H 101 H 101 H Pulse Rate [ From Monitor] Pulse Rate [ Left Radial] Pulse Rate [ Right Radial] Respiratory 17 15 16 Rate Blood Pressure 134/73 134/73 134/73 O2 Sat by Pulse 96 96 96 Oximetry 10/20/20 10/20/20 10/20/20 10:10 10:20 10:30 Temperature Pulse Rate 101 H 100 H 101 H Pulse Rate [ From Monitor] Pulse Rate [ Left Radial] Pulse Rate [ Right Radial] Respiratory 18 15 16 Rate Blood Pressure 148/89 148/89 148/89 O2 Sat by Pulse 96 96 96 Oximetry 10/20/20 10/20/20 10/20/20 10:40 10:50 11:00 Temperature Pulse Rate 102 H 101 H 102 H Pulse Rate [ From Monitor] Pulse Rate [ Left Radial] Pulse Rate [ Right Radial] Respiratory 18 16 16 Rate Blood Pressure 144/82 144/82 144/82 O2 Sat by Pulse 97 96 96 Oximetry 10/20/20 10/20/20 10/20/20 11:10 11:20 11:24 Temperature Pulse Rate 101 H 101 H 103 H Pulse Rate [ From Monitor] Pulse Rate [ Left Radial] Pulse Rate [ Right Radial] Respiratory 16 19 16 Rate Blood Pressure 146/77 146/77 146/77 O2 Sat by Pulse 97 96 97 Oximetry 10/20/20 10/20/20 10/20/20 11:30 11:40 11:50 Temperature Pulse Rate 100 H 101 H 101 H Pulse Rate [ From Monitor] Pulse Rate [ Left Radial] Pulse Rate [ Right Radial] Respiratory 15 17 17 Rate Blood Pressure 146/77 144/70 144/70 O2 Sat by Pulse 97 97 97 Oximetry 10/20/20 10/20/20 10/20/20 12:00 12:10 12:20 Temperature 98.9 F Pulse Rate 99 H 100 H 100 H Pulse Rate [ From Monitor] Pulse Rate [ Left Radial] Pulse Rate [ Right Radial] Respiratory 15 19 19 Rate Blood Pressure 144/70 142/68 142/68 O2 Sat by Pulse 97 97 98 Oximetry 10/20/20 10/20/20 10/20/20 12:30 12:40 12:50 Temperature Pulse Rate 101 H 101 H 100 H Pulse Rate [ From Monitor] Pulse Rate [ Left Radial] Pulse Rate [ Right Radial] Respiratory 16 16 21 Rate Blood Pressure 151/77 151/77 151/77 O2 Sat by Pulse 94 97 97 Oximetry 10/20/20 10/20/20 10/20/20 13:00 13:10 13:20 Temperature Pulse Rate 99 H 101 H 102 H Pulse Rate [ From Monitor] Pulse Rate [ Left Radial] Pulse Rate [ Right Radial] Respiratory 14 17 22 Rate Blood Pressure 151/77 153/87 153/87 O2 Sat by Pulse 97 97 97 Oximetry 10/20/20 10/20/20 10/20/20 13:30 13:40 13:50 Temperature Pulse Rate 101 H 100 H 101 H Pulse Rate [ From Monitor] Pulse Rate [ Left Radial] Pulse Rate [ Right Radial] Respiratory 15 16 20 Rate Blood Pressure 160/91 160/91 160/91 O2 Sat by Pulse 96 97 97 Oximetry 10/20/20 10/20/20 10/20/20 14:00 14:10 14:13 Temperature Pulse Rate 100 H 107 H 102 H Pulse Rate [ From Monitor] Pulse Rate [ Left Radial] Pulse Rate [ Right Radial] Respiratory 19 30 H Rate Blood Pressure 168/92 168/92 168/92 O2 Sat by Pulse 96 97 Oximetry 10/20/20 10/20/20 10/20/20 14:20 14:30 14:40 Temperature Pulse Rate 100 H 103 H 102 H Pulse Rate [ From Monitor] Pulse Rate [ Left Radial] Pulse Rate [ Right Radial] Respiratory 17 18 25 H Rate Blood Pressure 168/92 160/91 153/84 O2 Sat by Pulse 95 96 95 Oximetry 10/20/20 10/20/20 14:50 15:00 Temperature Pulse Rate 107 H 110 H Pulse Rate [ From Monitor] Pulse Rate [ Left Radial] Pulse Rate [ Right Radial] Respiratory 18 28 H Rate Blood Pressure 153/84 153/84 O2 Sat by Pulse 96 97 Oximetry - Laboratory Findings CBC and BMP: 10/19/20 07:59 10/19/20 07:59 Abnormal Lab Findings: Abnormal Labs 10/14/20 10/14/20 10/14/20 13:36 13:36 14:22 WBC 14.7 H MCHC 35 H Lymph % (Auto) Hart % (Auto) Lymph # (Auto) Hart # (Auto) Seg Neutrophils % Seg Neuts % (Manual) 89.0 H Lymphocytes % (Manual) 4.0 L Seg Neutrophils # Seg Neutrophils # Man 13.1 H Lymphocytes # (Manual) 0.6 L ABG pH 7.298 L POC ABG pCO2 POC ABG pO2 ABG pO2 285.8 H ABG HCO3 ABG O2 Saturation 99.5 H ABG Base Excess -4.1 L ABG Hemoglobin ABG Oxyhemoglobin ABG Sodium ABG Glucose Oxyhemoglobin Sodium 131 L Chloride 97.2 L Carbon Dioxide BUN Glucose 170 H POC Glucose Arterial Blood Glucose Phenytoin 10/14/20 10/15/20 10/15/20 17:09 03:35 04:33 WBC MCHC 36 H Lymph % (Auto) 9.6 L Hart % (Auto) 10.1 H Lymph # (Auto) 1.0 L Hart # (Auto) 1.1 H Seg Neutrophils % 79.8 H Seg Neuts % (Manual) Lymphocytes % (Manual) Seg Neutrophils # 8.4 H Seg Neutrophils # Man Lymphocytes # (Manual) ABG pH 7.536 H POC ABG pCO2 POC ABG pO2 ABG pO2 185.0 H 110.2 H ABG HCO3 ABG O2 Saturation 99.2 H ABG Base Excess ABG Hemoglobin ABG Oxyhemoglobin ABG Sodium ABG Glucose Oxyhemoglobin Sodium Chloride Carbon Dioxide BUN Glucose POC Glucose Arterial Blood Glucose Phenytoin 10/15/20 10/15/20 10/16/20 04:33 13:12 00:09 WBC MCHC Lymph % (Auto) Hart % (Auto) Lymph # (Auto) Hart # (Auto) Seg Neutrophils % Seg Neuts % (Manual) Lymphocytes % (Manual) Seg Neutrophils # Seg Neutrophils # Man Lymphocytes # (Manual) ABG pH 7.297 L POC ABG pCO2 51.0 H POC ABG pO2 56.7 L ABG pO2 ABG HCO3 ABG O2 Saturation ABG Base Excess ABG Hemoglobin ABG Oxyhemoglobin 84.6 L ABG Sodium 134.4 L ABG Glucose 118 H Oxyhemoglobin Sodium Chloride Carbon Dioxide BUN Glucose 120 H POC Glucose 114 H Arterial Blood Glucose 118 H Phenytoin 10/16/20 10/16/20 10/17/20 05:42 05:46 04:08 WBC MCHC Lymph % (Auto) Hart % (Auto) Lymph # (Auto) Hart # (Auto) Seg Neutrophils % Seg Neuts % (Manual) Lymphocytes % (Manual) Seg Neutrophils # Seg Neutrophils # Man Lymphocytes # (Manual) ABG pH POC ABG pCO2 POC ABG pO2 ABG pO2 96.6 H ABG HCO3 ABG O2 Saturation ABG Base Excess ABG Hemoglobin ABG Oxyhemoglobin ABG Sodium 132.6 L ABG Glucose 112 H Oxyhemoglobin Sodium Chloride Carbon Dioxide BUN Glucose POC Glucose 106 H Arterial Blood Glucose 112 H Phenytoin 10/17/20 10/17/20 10/17/20 09:23 09:23 10:46 WBC 12.3 H MCHC Lymph % (Auto) Hart % (Auto) Lymph # (Auto) Hart # (Auto) Seg Neutrophils % Seg Neuts % (Manual) Lymphocytes % (Manual) Seg Neutrophils # Seg Neutrophils # Man Lymphocytes # (Manual) ABG pH POC ABG pCO2 POC ABG pO2 71.6 L ABG pO2 ABG HCO3 ABG O2 Saturation ABG Base Excess ABG Hemoglobin ABG Oxyhemoglobin 92.6 L ABG Sodium 134.8 L ABG Glucose 105 H Oxyhemoglobin Sodium Chloride Carbon Dioxide 21 L BUN 19 H Glucose POC Glucose Arterial Blood Glucose 105 H Phenytoin 10/17/20 10/18/20 10/18/20 23:43 04:18 08:32 WBC MCHC Lymph % (Auto) Hart % (Auto) Lymph # (Auto) Hart # (Auto) Seg Neutrophils % Seg Neuts % (Manual) Lymphocytes % (Manual) Seg Neutrophils # Seg Neutrophils # Man Lymphocytes # (Manual) ABG pH POC ABG pCO2 POC ABG pO2 81.9 L ABG pO2 ABG HCO3 ABG O2 Saturation ABG Base Excess ABG Hemoglobin ABG Oxyhemoglobin ABG Sodium 133.3 L ABG Glucose 125 H Oxyhemoglobin Sodium Chloride Carbon Dioxide BUN Glucose POC Glucose 118 H Arterial Blood Glucose 125 H Phenytoin 7.1 L 10/18/20 10/18/20 10/18/20 08:32 08:32 12:34 WBC MCHC Lymph % (Auto) 12.4 L Hart % (Auto) Lymph # (Auto) Hart # (Auto) Seg Neutrophils % 77.0 H Seg Neuts % (Manual) Lymphocytes % (Manual) Seg Neutrophils # Seg Neutrophils # Man Lymphocytes # (Manual) ABG pH POC ABG pCO2 POC ABG pO2 ABG pO2 ABG HCO3 ABG O2 Saturation ABG Base Excess ABG Hemoglobin ABG Oxyhemoglobin ABG Sodium ABG Glucose Oxyhemoglobin Sodium 135 L Chloride Carbon Dioxide BUN 21 H Glucose 131 H POC Glucose 121 H Arterial Blood Glucose Phenytoin 10/18/20 10/18/20 10/19/20 18:12 23:47 04:55 WBC MCHC Lymph % (Auto) Hart % (Auto) Lymph # (Auto) Hart # (Auto) Seg Neutrophils % Seg Neuts % (Manual) Lymphocytes % (Manual) Seg Neutrophils # Seg Neutrophils # Man Lymphocytes # (Manual) ABG pH POC ABG pCO2 POC ABG pO2 ABG pO2 ABG HCO3 27.1 H ABG O2 Saturation ABG Base Excess ABG Hemoglobin 11.1 L ABG Oxyhemoglobin ABG Sodium ABG Glucose Oxyhemoglobin 94.9 L Sodium Chloride Carbon Dioxide BUN Glucose POC Glucose 133 H 142 H Arterial Blood Glucose Phenytoin 10/19/20 10/19/20 10/19/20 06:02 07:59 12:35 WBC MCHC Lymph % (Auto) Hart % (Auto) Lymph # (Auto) Hart # (Auto) Seg Neutrophils % Seg Neuts % (Manual) Lymphocytes % (Manual) Seg Neutrophils # Seg Neutrophils # Man Lymphocytes # (Manual) ABG pH POC ABG pCO2 POC ABG pO2 ABG pO2 ABG HCO3 ABG O2 Saturation ABG Base Excess ABG Hemoglobin ABG Oxyhemoglobin ABG Sodium ABG Glucose Oxyhemoglobin Sodium Chloride Carbon Dioxide BUN Glucose 144 H POC Glucose 143 H 132 H Arterial Blood Glucose Phenytoin 10/19/20 10/19/20 10/19/20 16:12 16:31 23:17 WBC MCHC Lymph % (Auto) Hart % (Auto) Lymph # (Auto) Hart # (Auto) Seg Neutrophils % Seg Neuts % (Manual) Lymphocytes % (Manual) Seg Neutrophils # Seg Neutrophils # Man Lymphocytes # (Manual) ABG pH 7.461 H POC ABG pCO2 POC ABG pO2 75.8 L ABG pO2 ABG HCO3 ABG O2 Saturation ABG Base Excess ABG Hemoglobin ABG Oxyhemoglobin ABG Sodium 134.0 L ABG Glucose 156 H Oxyhemoglobin Sodium Chloride Carbon Dioxide BUN Glucose POC Glucose 120 H 128 H Arterial Blood Glucose 156 H Phenytoin 10/20/20 10/20/20 10/20/20 03:25 05:26 12:12 WBC MCHC Lymph % (Auto) Hart % (Auto) Lymph # (Auto) Hart # (Auto) Seg Neutrophils % Seg Neuts % (Manual) Lymphocytes % (Manual) Seg Neutrophils # Seg Neutrophils # Man Lymphocytes # (Manual) ABG pH POC ABG pCO2 POC ABG pO2 ABG pO2 ABG HCO3 ABG O2 Saturation ABG Base Excess ABG Hemoglobin ABG Oxyhemoglobin ABG Sodium 134.0 L ABG Glucose 129 H Oxyhemoglobin Sodium Chloride Carbon Dioxide BUN Glucose POC Glucose 125 H 136 H Arterial Blood Glucose 129 H Phenytoin
[2020-10-20] MEDS ORDERED: hydrALAZINE 20 MG/1 ML INJ IV PRN (18:38)
--- NOTE | 2020-10-20 21:47 | Progress Note ---
Assessment and Plan The high probability of a clinically significant, sudden or life threatening deterioration of the [cardiac, pulmonary, renal] system(s) required my full and direct attention, intervention and personal management. The aggregate critical care time was [37] minutes. This time is in addition to time spent performing reported procedures but includes the following: [x] Data Review and interpretation [x] Patient assessment and monitoring of vital signs [x] Documentation [x] Medication orders and management (1) Acute respiratory failure Current Visit: Yes Status: Acute Qualifiers: Respiratory failure complication: hypoxia Qualified Code(s): J96.01 - Acute respiratory failure with hypoxia Plan to address problem: Patient intubated and on ventilatory support, daily spontaneous breathing trials, sedation holiday, wean vent as tolerated, critical care team consulted. (2) Status epilepticus Current Visit: Yes Status: Acute Plan to address problem: Supportive care. Seizure precautions, Keppra 1 g IV in the emergency department, Keppra 500 mg twice daily. Teleneurology consulted. Started on for fosphenytoin sodium 500 mg IV Neurology consult appreciated (3) Hypertensive emergency Current Visit: Yes Status: Acute Plan to address problem: Monitor blood pressure every shift, continue IV hydralazine, (4) Acute encephalopathy Current Visit: Yes Status: Acute Plan to address problem: CT head, neuro check, seizure precautions, aspiration precautions, (5) Leukocytosis Current Visit: Yes Status: Acute Plan to address problem: Chest x-ray, CBC, urinalysis, empiric IV antibiotic therapy x1 dose, repeat CBC in a.m. (6) DVT prophylaxis Current Visit: Yes Status: Acute Plan to address problem: SCD to bilateral lower extremities while in bed, prophylactic anticoagulation (7) Advance care planning Current Visit: Yes Status: Acute Plan to address problem: Disease education conducted, patient is full code, prognosis discussed, +30 minutes. Subjective Date of service: 10/20/20 Principal diagnosis: Ac hypoxemic & hypercapnic resp failure; Status epilepticus; HTNsive emerge Interval history: Subjective Date of service: 10/15/20 Principal diagnosis: Resp failure,Seizures Interval history: 65 YO Female with Obesity, HTN, presents to ED for evaluation. Patient is intubated and on ventilatory support at the time of my evaluation and is unable to provide history. Patient history is taken from EMS staff, ED staff. As per staff the patient was found down and unresponsive by her neighbor. Patient neighbor describe seizure-like activity. EMS was notified and upon arrival the patient was found to be in distress and actively seizing. Patient treated with 2 mg of Ativan which terminated the seizures. The patient was subsequently transported to [facility] for further evaluation and care of the aforementioned symptoms. Patient was seen and evaluated in the emergency department. All lab and imaging studies reviewed. Patient found to have symptoms consistent with status epilepticus which was evidenced by recurrent seizures in the emergency department with concomitant decrease in pulse oximetry to 84% on room air. The patient was also found to have hypertensive emergency with a blood pressure of 223/143. The patient was deemed unable to protect her airway and was intubated for airway protection. Patient also found to have acute encephalopathy. Patient admitted to ICU due to increased risk of decompensation. Critical care team consulted in ED. No prior admission for review. No medication listed at time of admission for reconciliation. Advanced care planning conducted in ED.\ Patient on IV antiseizure medications Patient still intubated Objective - Exam Narrative Exam: Intubated - Constitutional Vitals: Vital Signs - 12hr 10/20/20 10/20/20 10/20/20 09:50 10:00 10:10 Temperature Pulse Rate 101 H 101 H 101 H Pulse Rate [ From Monitor] Respiratory 15 16 18 Rate Blood Pressure 134/73 134/73 148/89 O2 Sat by Pulse 96 96 96 Oximetry 10/20/20 10/20/20 10/20/20 10:20 10:30 10:40 Temperature Pulse Rate 100 H 101 H 102 H Pulse Rate [ From Monitor] Respiratory 15 16 18 Rate Blood Pressure 148/89 148/89 144/82 O2 Sat by Pulse 96 96 97 Oximetry 10/20/20 10/20/20 10/20/20 10:50 11:00 11:10 Temperature Pulse Rate 101 H 102 H 101 H Pulse Rate [ From Monitor] Respiratory 16 16 16 Rate Blood Pressure 144/82 144/82 146/77 O2 Sat by Pulse 96 96 97 Oximetry 10/20/20 10/20/20 10/20/20 11:20 11:24 11:30 Temperature Pulse Rate 101 H 103 H 100 H Pulse Rate [ From Monitor] Respiratory 19 16 15 Rate Blood Pressure 146/77 146/77 146/77 O2 Sat by Pulse 96 97 97 Oximetry 11/19/20 11/19/20 11/19/20 11:40 11:50 12:00 Temperature 98.9 F Pulse Rate 101 H 101 H 99 H Pulse Rate [ From Monitor] Respiratory 17 17 15 Rate Blood Pressure 144/70 144/70 144/70 O2 Sat by Pulse 97 97 97 Oximetry 10/20/20 10/20/20 10/20/20 12:10 12:20 12:30 Temperature Pulse Rate 100 H 100 H 101 H Pulse Rate [ From Monitor] Respiratory 19 19 16 Rate Blood Pressure 142/68 142/68 151/77 O2 Sat by Pulse 97 98 94 Oximetry 10/20/20 10/20/20 10/20/20 12:40 12:50 13:00 Temperature Pulse Rate 101 H 100 H 99 H Pulse Rate [ From Monitor] Respiratory 16 21 14 Rate Blood Pressure 151/77 151/77 151/77 O2 Sat by Pulse 97 97 97 Oximetry 10/20/20 10/20/20 10/20/20 13:10 13:20 13:30 Temperature Pulse Rate 101 H 102 H 101 H Pulse Rate [ From Monitor] Respiratory 17 22 15 Rate Blood Pressure 153/87 153/87 160/91 O2 Sat by Pulse 97 97 96 Oximetry 10/20/20 10/20/20 10/20/20 13:40 13:50 14:00 Temperature Pulse Rate 100 H 101 H 100 H Pulse Rate [ From Monitor] Respiratory 16 20 19 Rate Blood Pressure 160/91 160/91 168/92 O2 Sat by Pulse 97 97 96 Oximetry 10/20/20 10/20/20 10/20/20 14:10 14:13 14:20 Temperature Pulse Rate 107 H 102 H 100 H Pulse Rate [ From Monitor] Respiratory 30 H 17 Rate Blood Pressure 168/92 168/92 168/92 O2 Sat by Pulse 97 95 Oximetry 10/20/20 10/20/20 10/20/20 14:30 14:40 14:50 Temperature Pulse Rate 103 H 102 H 107 H Pulse Rate [ From Monitor] Respiratory 18 25 H 18 Rate Blood Pressure 160/91 153/84 153/84 O2 Sat by Pulse 96 95 96 Oximetry 10/20/20 10/20/20 10/20/20 15:00 15:10 15:20 Temperature Pulse Rate 110 H 111 H 110 H Pulse Rate [ From Monitor] Respiratory 28 H 21 29 H Rate Blood Pressure 153/84 168/103 168/103 O2 Sat by Pulse 97 95 95 Oximetry 10/20/20 10/20/20 10/20/20 15:30 15:40 15:50 Temperature Pulse Rate 116 H 115 H 112 H Pulse Rate [ From Monitor] Respiratory 25 H 29 H 24 Rate Blood Pressure 168/103 183/103 183/103 O2 Sat by Pulse 95 96 95 Oximetry 10/20/20 10/20/20 10/20/20 16:00 16:10 16:20 Temperature 100.9 F H Pulse Rate 111 H 110 H 115 H Pulse Rate [ From Monitor] Respiratory 22 25 H 23 Rate Blood Pressure 183/103 171/95 166/94 O2 Sat by Pulse 95 95 96 Oximetry 10/20/20 10/20/20 10/20/20 16:30 16:31 16:40 Temperature Pulse Rate 114 H 112 H 104 H Pulse Rate [ From Monitor] Respiratory 25 H 25 H 18 Rate Blood Pressure 151/100 151/100 151/100 O2 Sat by Pulse 94 95 94 Oximetry 10/20/20 10/20/20 10/20/20 16:50 17:00 17:10 Temperature Pulse Rate 96 H 92 H 91 H Pulse Rate [ From Monitor] Respiratory 16 16 16 Rate Blood Pressure 151/100 151/100 146/83 O2 Sat by Pulse 94 93 94 Oximetry 10/20/20 10/20/20 10/20/20 17:20 17:30 17:40 Temperature Pulse Rate 89 89 91 H Pulse Rate [ From Monitor] Respiratory 16 20 17 Rate Blood Pressure 146/83 145/85 145/85 O2 Sat by Pulse 93 94 95 Oximetry 10/20/20 10/20/20 10/20/20 17:50 18:00 18:10 Temperature Pulse Rate 91 H 94 H 96 H Pulse Rate [ From Monitor] Respiratory 18 21 20 Rate Blood Pressure 145/85 145/85 155/80 O2 Sat by Pulse 95 94 94 Oximetry 10/20/20 10/20/20 10/20/20 18:20 18:30 18:40 Temperature Pulse Rate 95 H 97 H 96 H Pulse Rate [ From Monitor] Respiratory 23 21 26 H Rate Blood Pressure 155/80 155/80 169/93 O2 Sat by Pulse 94 95 94 Oximetry 10/20/20 10/20/20 10/20/20 18:50 19:00 19:10 Temperature Pulse Rate 95 H 95 H 95 H Pulse Rate [ From Monitor] Respiratory 18 21 18 Rate Blood Pressure 169/93 169/93 150/83 O2 Sat by Pulse 95 95 95 Oximetry 10/20/20 10/20/20 10/20/20 19:20 19:30 19:40 Temperature Pulse Rate 95 H 97 H 96 H Pulse Rate [ From Monitor] Respiratory 18 17 21 Rate Blood Pressure 150/83 150/83 166/91 O2 Sat by Pulse 95 95 95 Oximetry 10/20/20 10/20/20 10/20/20 19:50 19:51 20:00 Temperature 101.8 F H Pulse Rate 96 H 97 H 96 H Pulse Rate [ 78 From Monitor] Respiratory 18 25 H 20 Rate Blood Pressure 166/91 166/91 167/94 O2 Sat by Pulse 95 96 100 Oximetry 10/20/20 10/20/20 10/20/20 20:10 20:20 20:30 Temperature Pulse Rate 93 H 92 H 92 H Pulse Rate [ From Monitor] Respiratory 20 20 21 Rate Blood Pressure 167/94 167/94 167/94 O2 Sat by Pulse 97 96 96 Oximetry 10/20/20 10/20/20 20:40 20:50 Temperature Pulse Rate 91 H 89 Pulse Rate [ From Monitor] Respiratory 20 20 Rate Blood Pressure 133/76 133/76 O2 Sat by Pulse 96 97 Oximetry General appearance: Present: mild distress, well-nourished - EENT Eyes: PERRL, EOM intact ENT: hearing intact, clear oral mucosa Ears: bilateral: normal - Neck Neck: supple, normal ROM - Respiratory Respiratory effort: normal Respiratory: bilateral: CTA - Breasts Breasts: normal - Cardiovascular Heart rate: 78 Rhythm: regular Heart Sounds: Present: S1 & S2. Absent: gallop, rub Extremities: no ischemia, pulses intact, No edema, normal color, Full ROM - Gastrointestinal General gastrointestinal: Present: soft, non-tender, non-distended, normal bowel sounds - Genitourinary Female genitourinary: normal - Integumentary Integumentary: clear, warm, dry - Musculoskeletal Musculoskeletal: generalized weakness - Neurologic Neurologic: other (Patient intubated) - Allied health notes Allied health notes reviewed: nursing, social work, case management - Labs CBC & Chem 7: 10/30/20 07:53 10/30/20 07:53 Labs: Abnormal lab results 10/19/20 10/20/20 10/20/20 Range/Units 23:17 03:25 05:26 ABG Sodium 134.0 L (136.0-145.0) mmol/L ABG Glucose 129 H (65-95) mg/dL POC Glucose 128 H 125 H (70-105) mg/dL Arterial Blood Glucose 129 H (65-95) mg/dL 10/20/20 10/20/20 Range/Units 12:12 17:58 ABG Sodium (136.0-145.0) mmol/L ABG Glucose (65-95) mg/dL POC Glucose 136 H 148 H (70-105) mg/dL Arterial Blood Glucose (65-95) mg/dL HEART Score - HEART Score Troponin: Troponin T 0.015 ng/mL (0.00-0.029) 10/14/20 13:36
[2020-10-20] MEDS: VALSARTAN 40 MG TAB PO SCH (22:21)
[2020-10-20] MEDS: POLYETHYLENE GLYCOL 3350 17 GM POWDER PO SCH (22:51)
[2020-10-21] MEDS: SODIUM CHLORIDE 0.9% 1000 ML 1,000 ML IV SCH ×2 (00:16→02:52)
[2020-10-21] MEDS: fentaNYL DRIP Premix 2,000 MCG/100 ML BAG IV SCH ×3 (02:52→20:24)
[2020-10-21] MEDS: METOCLOPRAMIDE 10 MG/2 ML INJ IV SCH ×4 (03:07→22:25)
[2020-10-21] MEDS: LACOSAMIDE 200 MG in SODIUM CHLORIDE 0.9% 100 ML IV SCH ×2 (03:34→16:53)
--- NOTE | 2020-10-21 04:48 | XRay Report ---
CHEST 1 VIEW 10/21/2020 4:24 AM INDICATION / CLINICAL INFORMATION: follow up respiratory failure. COMPARISON: 10/20/2020 FINDINGS: SUPPORT DEVICES: Stable, satisfactory device positioning. HEART / MEDIASTINUM: Stable. LUNGS / PLEURA: No significant pulmonary or pleural abnormality. No pneumothorax. ADDITIONAL FINDINGS: No significant additional findings. IMPRESSION: 1. No acute findings. Signer Name: Dio Keenan MD Signed: 10/21/2020 4:43 AM Workstation Name: [id number]
[2020-10-21] MEDS: PHENYTOIN 100 MG/2 ML VIAL IV SCH ×2 (05:05→16:18)
[2020-10-21 06:06] LABS: Calcium 9.1 mg/dL (8.4-10.2)
[2020-10-21] MEDS: DOCUSATE SODIUM 100 MG/10 ML ORAL LIQD PO SCH ×2 (09:31→22:26)
[2020-10-21] MEDS: VALSARTAN 40 MG TAB PO SCH ×2 (09:31→22:26)
[2020-10-21] MEDS: FAMOTIDINE 20 MG TAB PO SCH ×2 (09:31→22:26)
[2020-10-21] MEDS: QUEtiapine 200 MG TAB PO SCH ×2 (09:32→22:26)
[2020-10-21] MEDS: HEPARIN 5,000 UNIT/1 ML VIAL SUB-Q SCH ×2 (09:32→22:26)
[2020-10-21] MEDS: levETIRAcetam 1,500 MG in DEXTROSE 5% IN WATER 100 ML IV SCH ×2 (10:58→22:26)
--- NOTE | 2020-10-21 12:19 | Progress Note ---
Assessment and Plan Acute hypoxemic and hypercapnic respiratory failure. Acute encephalopathy (Toxic / metabolic). Status epilepticus. Hypertensive emergency at presentation. History of a brain aneurysm repair. Obesity. History of hypertension. Leukocytosis. Mild hyponatremia. Hyperglycemia. - KUB suggested Volvolus; will get surgery evaluation JESSICA - get ABG on SBT - extubate if acceptable thereafter and i9f no surgical intervention planned - NGT to LIS in interim - schedule BIPAP qhs with prn daytime use post extubation - continue care as below otherwise; - continue low dose reglan - continue bowel regimen with colace & miralax - continue daily SAT's and SBT assessment as tolerated - continue Vimpat & Keppra (Adjust per neurologist) - continue enteral nutrition at goal rate as tolerated - continue Seroquel 200 mg p.o. bid to spare IV sedatives - continue to wean supplemental oxygen for target O2 sat's > 92% acutely - VAP bundle addressed - continue lung protective strategies - continue bronchodilators with pulmonary hygiene per RT - wean per pulmonary driven protocols otherwise - sedation prn for target RASS -1 to -2 - begin enteral nutritional support at goal rate as tolerated - empiric AB's coverage per ID rec's otherwise - accuchecks with glycemic control per SSI (While critically ill target blood glucose of 140-180 mg/dL; avoid hypoglycemia) - avoid nephrotoxins, renally dose all medications - continue Keppra as AED - continue to avoid benzodiazepine's, reduce the possibility of delirium - prn analgesia per CPOT score - Maintenance of sleep-wake cycle, avoid delirium - continue to avoid benzodiazepine's, reduce the possibility of delirium - aspiration precautions - G.I. & VTE prophylaxis - PT/OT/ROM exercises - continue mobility protocols for pressure ulcer prophylaxis - Monitor hemodynamics closely - continue other care per attending / other consultants - discharge planning ongoing concurrently .... Re-evaluate in am & prn CONDITION: CRITICAL PROGNOSIS: GUARDED CODE STATUS: FULL CODE The high probability of a clinically significant, sudden or life-threatening deterioration of the [respiratory, cardiovascular & neurologic] system(s) required my full and direct attention, intervention and personal management. The aggregate critical care time was [36] minutes without overlap. Time includes s pent on; [x] Data Review and interpretation [x] Patient assessment and monitoring of vital signs [x] Documentation [x] Medication orders and management Subjective Date of service: 10/21/20 Principal diagnosis: Ac hypoxemic & hypercapnic resp failure; Status epilepticus; HTNsive emerge Interval history: Patient is seen today for: Ac hypoxemic and hypercapnic resp failure; Ac. encephalopathy; Status epilepticus; HTNsive emergency; History of a brain aneurysm repair; Obesity Seen and examined at bedside; 24hour events reviewed; nursing and respiratory care staff consulted; no adverse overnight events reported to me; resting peacefully in bed; tolerated SBT whole day yesterday and tolerating well at time of my examination Objective Vital Signs - 12hr 10/21/20 10/21/20 10/21/20 00:20 00:30 00:40 Temperature Pulse Rate 81 80 78 Pulse Rate [ From Monitor] Respiratory 20 20 20 Rate Blood Pressure 98/43 90/50 90/50 O2 Sat by Pulse 97 95 97 Oximetry 10/21/20 10/21/20 10/21/20 00:50 01:00 01:10 Temperature Pulse Rate 77 78 78 Pulse Rate [ From Monitor] Respiratory 20 20 20 Rate Blood Pressure 90/50 89/51 89/51 O2 Sat by Pulse 97 95 97 Oximetry 10/21/20 10/21/20 10/21/20 01:20 01:30 01:40 Temperature Pulse Rate 77 77 79 Pulse Rate [ From Monitor] Respiratory 20 20 20 Rate Blood Pressure 89/51 90/54 90/54 O2 Sat by Pulse 97 97 Oximetry 10/21/20 10/21/20 10/21/20 01:50 02:00 02:10 Temperature Pulse Rate 78 76 74 Pulse Rate [ From Monitor] Respiratory 20 20 20 Rate Blood Pressure 90/54 97/56 97/56 O2 Sat by Pulse 98 95 97 Oximetry 10/21/20 10/21/20 10/21/20 02:20 02:30 02:40 Temperature Pulse Rate 75 76 74 Pulse Rate [ From Monitor] Respiratory 20 20 20 Rate Blood Pressure 97/56 96/54 96/54 O2 Sat by Pulse 97 97 97 Oximetry 10/21/20 10/21/20 10/21/20 02:50 03:00 03:10 Temperature Pulse Rate 74 71 73 Pulse Rate [ From Monitor] Respiratory 20 20 20 Rate Blood Pressure 96/54 90/37 90/37 O2 Sat by Pulse 98 95 97 Oximetry 10/21/20 10/21/2020 03:20 03:28 03:30 Temperature Pulse Rate 73 73 Pulse Rate [ 78 From Monitor] Respiratory 20 22 20 Rate Blood Pressure 90/37 90/37 O2 Sat by Pulse 97 100 97 Oximetry 10/21/20 10/21/20 10/21/20 03:41 03:51 03:55 Temperature 98.3 F Pulse Rate 73 74 Pulse Rate [ From Monitor] Respiratory 20 20 Rate Blood Pressure 84/47 O2 Sat by Pulse 97 97 Oximetry 10/21/20 10/21/20 10/21/20 04:01 04:11 04:21 Temperature Pulse Rate 84 79 76 Pulse Rate [ From Monitor] Respiratory 27 H 20 20 Rate Blood Pressure 115/62 115/62 115/62 O2 Sat by Pulse 97 97 97 Oximetry 10/21/20 10/21/20 10/21/20 04:31 04:41 04:51 Temperature Pulse Rate 78 78 80 Pulse Rate [ From Monitor] Respiratory 20 20 22 Rate Blood Pressure 108/53 108/53 108/53 O2 Sat by Pulse 94 97 98 Oximetry 10/21/20 10/21/20 10/21/20 05:01 05:11 05:21 Temperature Pulse Rate 82 80 78 Pulse Rate [ From Monitor] Respiratory 20 22 21 Rate Blood Pressure 124/77 124/77 124/77 O2 Sat by Pulse 95 98 96 Oximetry 10/21/20 10/21/20 10/21/20 05:30 05:41 05:51 Temperature Pulse Rate 76 78 84 Pulse Rate [ From Monitor] Respiratory 20 20 22 Rate Blood Pressure 96/60 96/60 96/60 O2 Sat by Pulse 96 97 97 Oximetry 10/21/20 10/21/20 10/21/20 06:01 06:11 06:21 Temperature Pulse Rate 89 91 H 83 Pulse Rate [ From Monitor] Respiratory 21 27 H 20 Rate Blood Pressure 96/60 96/60 121/74 O2 Sat by Pulse 97 97 96 Oximetry 10/21/20 10/21/20 10/21/20 06:30 06:41 06:51 Temperature Pulse Rate 81 80 77 Pulse Rate [ From Monitor] Respiratory 20 20 20 Rate Blood Pressure 118/70 118/70 118/70 O2 Sat by Pulse 97 96 96 Oximetry 10/21/20 10/21/20 10/21/20 07:00 07:11 07:21 Temperature Pulse Rate 79 76 78 Pulse Rate [ From Monitor] Respiratory 20 20 20 Rate Blood Pressure 103/64 103/64 103/64 O2 Sat by Pulse 95 96 96 Oximetry 10/21/20 10/21/20 10/21/20 07:30 07:41 07:51 Temperature Pulse Rate 76 72 74 Pulse Rate [ From Monitor] Respiratory 20 20 20 Rate Blood Pressure 103/60 103/60 103/60 O2 Sat by Pulse 96 97 97 Oximetry 10/21/20 10/21/20 10/21/20 08:00 08:11 08:14 Temperature Pulse Rate 71 75 77 Pulse Rate [ 72 From Monitor] Respiratory 22 13 13 Rate Blood Pressure 90/55 90/55 90/55 O2 Sat by Pulse 100 92 94 Oximetry 10/21/20 10/21/20 10/21/20 08:21 08:30 08:41 Temperature Pulse Rate 79 77 93 H Pulse Rate [ From Monitor] Respiratory 17 14 26 H Rate Blood Pressure 90/55 109/66 109/66 O2 Sat by Pulse 95 95 97 Oximetry 10/21/20 10/21/20 10/21/20 08:51 09:01 09:11 Temperature Pulse Rate 86 83 81 Pulse Rate [ From Monitor] Respiratory 15 20 16 Rate Blood Pressure 109/66 125/75 109/66 O2 Sat by Pulse 96 94 95 Oximetry 10/21/20 10/21/20 10/21/20 09:21 09:30 09:31 Temperature Pulse Rate 82 80 82 Pulse Rate [ From Monitor] Respiratory 14 14 Rate Blood Pressure 109/66 104/67 104/67 O2 Sat by Pulse 96 95 Oximetry 10/21/20 10/21/20 10/21/20 09:41 09:51 10:00 Temperature Pulse Rate 80 81 84 Pulse Rate [ From Monitor] Respiratory 16 16 17 Rate Blood Pressure 125/75 125/75 110/71 O2 Sat by Pulse 96 95 95 Oximetry 10/21/20 10/21/20 10/21/20 10:11 10:21 10:31 Temperature Pulse Rate 82 83 87 Pulse Rate [ From Monitor] Respiratory 17 17 21 Rate Blood Pressure 110/71 110/71 86/69 O2 Sat by Pulse 95 96 97 Oximetry 10/21/20 10/21/20 10/21/20 10:41 10:51 11:00 Temperature Pulse Rate 86 87 85 Pulse Rate [ From Monitor] Respiratory 18 25 H 16 Rate Blood Pressure 86/69 86/69 98/59 O2 Sat by Pulse 95 95 96 Oximetry 10/21/20 10/21/20 10/21/20 11:11 11:21 11:30 Temperature Pulse Rate 88 86 86 Pulse Rate [ From Monitor] Respiratory 18 17 17 Rate Blood Pressure 98/59 98/59 101/59 O2 Sat by Pulse 96 96 97 Oximetry 10/21/20 10/21/20 10/21/20 11:41 11:51 12:00 Temperature Pulse Rate 87 86 86 Pulse Rate [ 86 From Monitor] Respiratory 17 28 H 22 Rate Blood Pressure 101/59 101/59 O2 Sat by Pulse 97 96 100 Oximetry 10/21/20 10/21/20 12:01 12:11 Temperature Pulse Rate 85 83 Pulse Rate [ From Monitor] Respiratory 19 19 Rate Blood Pressure 95/55 105/65 O2 Sat by Pulse 96 97 Oximetry Constitutional: no acute distress, other (elderly obese female without signific ant patient / ventilator dyssynchrony) Eyes: non-icteric ENT: oropharynx moist, other (ETT 24 cm NATIVIDAD) Neck: supple, no lymphadenopathy, no JVD Effort: mildly labored Ascultation: Bilateral: diminished breath sounds, rhonchi (scant) Percussion: Bilateral: not dull Cardiovascular: regular rate and rhythm Gastrointestinal: normoactive bowel sounds, soft, non-tender, other (Distended, firm) Integumentary: normal Extremities: no cyanosis, no edema, pink and warm, pulses normal Neurologic: non-focal exam (grossly), pupils equal and round, other (sedated but responds appropriately) Psychiatric: other (sedated) CBC and BMP: 10/19/20 07:59 10/21/20 04:48 ABG, PT/INR, D-dimer: ABG ABG pH 7.443 (7.320-7.450) 10/21/20 04:14 POC ABG pCO2 33.5 mmHg (32.0-48.0) 10/21/20 04:14 ABG pCO2 46.2 mm Hg 10/19/20 04:55 POC ABG pO2 90.7 mmHg (83-108) 10/21/20 04:14 ABG pO2 84.7 mm Hg (80.0-90.0) 10/19/20 04:55 POC ABG HCO3 22.4 10/21/20 04:14 ABG O2 Saturation 96.7 % (95.0-99.0) 10/19/20 04:55 PT/INR, D-dimer PT 14.0 Sec. (12.2-14.9) 10/14/20 13:36 INR 1.07 (0.87-1.13) 10/14/20 13:36 Abnormal lab findings: Abnormal Labs 10/14/20 10/14/20 10/14/20 13:36 13:36 14:22 WBC 14.7 H MCHC 35 H Lymph % (Auto) [place] % (Auto) Lymph # (Auto) [place] # (Auto) Seg Neutrophils % Seg Neuts % (Manual) 89.0 H Lymphocytes % (Manual) 4.0 L Seg Neutrophils # Seg Neutrophils # Man 13.1 H Lymphocytes # (Manual) 0.6 L ABG pH 7.298 L POC ABG pCO2 POC ABG pO2 ABG pO2 285.8 H ABG HCO3 ABG O2 Saturation 99.5 H ABG Base Excess -4.1 L ABG Hemoglobin ABG Oxyhemoglobin ABG Sodium ABG Potassium ABG Glucose Oxyhemoglobin Sodium 131 L Potassium Chloride 97.2 L Carbon Dioxide BUN Creatinine Glucose 170 H POC Glucose Arterial Blood Glucose Phenytoin 10/14/20 10/15/20 10/15/20 17:09 03:35 04:33 WBC MCHC 36 H Lymph % (Auto) 9.6 L [place] % (Auto) 10.1 H Lymph # (Auto) 1.0 L [place] # (Auto) 1.1 H Seg Neutrophils % 79.8 H Seg Neuts % (Manual) Lymphocytes % (Manual) Seg Neutrophils # 8.4 H Seg Neutrophils # Man Lymphocytes # (Manual) ABG pH 7.536 H POC ABG pCO2 POC ABG pO2 ABG pO2 185.0 H 110.2 H ABG HCO3 ABG O2 Saturation 99.2 H ABG Base Excess ABG Hemoglobin ABG Oxyhemoglobin ABG Sodium ABG Potassium ABG Glucose Oxyhemoglobin Sodium Potassium Chloride Carbon Dioxide BUN Creatinine Glucose POC Glucose Arterial Blood Glucose Phenytoin 10/15/20 10/15/20 10/16/20 04:33 13:12 00:09 WBC MCHC Lymph % (Auto) [place] % (Auto) Lymph # (Auto) [place] # (Auto) Seg Neutrophils % Seg Neuts % (Manual) Lymphocytes % (Manual) Seg Neutrophils # Seg Neutrophils # Man Lymphocytes # (Manual) ABG pH 7.297 L POC ABG pCO2 51.0 H POC ABG pO2 56.7 L ABG pO2 ABG HCO3 ABG O2 Saturation ABG Base Excess ABG Hemoglobin ABG Oxyhemoglobin 84.6 L ABG Sodium 134.4 L ABG Potassium ABG Glucose 118 H Oxyhemoglobin Sodium Potassium Chloride Carbon Dioxide BUN Creatinine Glucose 120 H POC Glucose 114 H Arterial Blood Glucose 118 H Phenytoin 10/16/20 10/16/20 10/17/20 05:42 05:46 04:08 WBC MCHC Lymph % (Auto) [place] % (Auto) Lymph # (Auto) [place] # (Auto) Seg Neutrophils % Seg Neuts % (Manual) Lymphocytes % (Manual) Seg Neutrophils # Seg Neutrophils # Man Lymphocytes # (Manual) ABG pH POC ABG pCO2 POC ABG pO2 ABG pO2 96.6 H ABG HCO3 ABG O2 Saturation ABG Base Excess ABG Hemoglobin ABG Oxyhemoglobin ABG Sodium 132.6 L ABG Potassium ABG Glucose 112 H Oxyhemoglobin Sodium Potassium Chloride Carbon Dioxide BUN Creatinine Glucose POC Glucose 106 H Arterial Blood Glucose 112 H Phenytoin 10/17/20 10/17/20 10/17/20 09:23 09:23 10:46 WBC 12.3 H MCHC Lymph % (Auto) [place] % (Auto) Lymph # (Auto) [place] # (Auto) Seg Neutrophils % Seg Neuts % (Manual) Lymphocytes % (Manual) Seg Neutrophils # Seg Neutrophils # Man Lymphocytes # (Manual) ABG pH POC ABG pCO2 POC ABG pO2 71.6 L ABG pO2 ABG HCO3 ABG O2 Saturation ABG Base Excess ABG Hemoglobin ABG Oxyhemoglobin 92.6 L ABG Sodium 134.8 L ABG Potassium ABG Glucose 105 H Oxyhemoglobin Sodium Potassium Chloride Carbon Dioxide 21 L BUN 19 H Creatinine Glucose POC Glucose Arterial Blood Glucose 105 H Phenytoin 10/17/20 10/18/20 10/18/20 23:43 04:18 08:32 WBC MCHC Lymph % (Auto) [place] % (Auto) Lymph # (Auto) [place] # (Auto) Seg Neutrophils % Seg Neuts % (Manual) Lymphocytes % (Manual) Seg Neutrophils # Seg Neutrophils # Man Lymphocytes # (Manual) ABG pH POC ABG pCO2 POC ABG pO2 81.9 L ABG pO2 ABG HCO3 ABG O2 Saturation ABG Base Excess ABG Hemoglobin ABG Oxyhemoglobin ABG Sodium 133.3 L ABG Potassium ABG Glucose 125 H Oxyhemoglobin Sodium Potassium Chloride Carbon Dioxide BUN Creatinine Glucose POC Glucose 118 H Arterial Blood Glucose 125 H Phenytoin 7.1 L 10/18/20 10/18/20 10/18/20 08:32 08:32 12:34 WBC MCHC Lymph % (Auto) 12.4 L [place] % (Auto) Lymph # (Auto) [place] # (Auto) Seg Neutrophils % 77.0 H Seg Neuts % (Manual) Lymphocytes % (Manual) Seg Neutrophils # Seg Neutrophils # Man Lymphocytes # (Manual) ABG pH POC ABG pCO2 POC ABG pO2 ABG pO2 ABG HCO3 ABG O2 Saturation ABG Base Excess ABG Hemoglobin ABG Oxyhemoglobin ABG Sodium ABG Potassium ABG Glucose Oxyhemoglobin Sodium 135 L Potassium Chloride Carbon Dioxide BUN 21 H Creatinine Glucose 131 H POC Glucose 121 H Arterial Blood Glucose Phenytoin 10/18/20 10/18/20 10/19/20 18:12 23:47 04:55 WBC MCHC Lymph % (Auto) [place] % (Auto) Lymph # (Auto) [place] # (Auto) Seg Neutrophils % Seg Neuts % (Manual) Lymphocytes % (Manual) Seg Neutrophils # Seg Neutrophils # Man Lymphocytes # (Manual) ABG pH POC ABG pCO2 POC ABG pO2 ABG pO2 ABG HCO3 27.1 H ABG O2 Saturation ABG Base Excess ABG Hemoglobin 11.1 L ABG Oxyhemoglobin ABG Sodium ABG Potassium ABG Glucose Oxyhemoglobin 94.9 L Sodium Potassium Chloride Carbon Dioxide BUN Creatinine Glucose POC Glucose 133 H 142 H Arterial Blood Glucose Phenytoin 10/19/20 10/19/20 10/19/20 06:02 07:59 12:35 WBC MCHC Lymph % (Auto) [place] % (Auto) Lymph # (Auto) [place] # (Auto) Seg Neutrophils % Seg Neuts % (Manual) Lymphocytes % (Manual) Seg Neutrophils # Seg Neutrophils # Man Lymphocytes # (Manual) ABG pH POC ABG pCO2 POC ABG pO2 ABG pO2 ABG HCO3 ABG O2 Saturation ABG Base Excess ABG Hemoglobin ABG Oxyhemoglobin ABG Sodium ABG Potassium ABG Glucose Oxyhemoglobin Sodium Potassium Chloride Carbon Dioxide BUN Creatinine Glucose 144 H POC Glucose 143 H 132 H Arterial Blood Glucose Phenytoin 10/19/20 10/19/20 10/19/20 16:12 16:31 23:17 WBC MCHC Lymph % (Auto) [place] % (Auto) Lymph # (Auto) [place] # (Auto) Seg Neutrophils % Seg Neuts % (Manual) Lymphocytes % (Manual) Seg Neutrophils # Seg Neutrophils # Man Lymphocytes # (Manual) ABG pH 7.461 H POC ABG pCO2 POC ABG pO2 75.8 L ABG pO2 ABG HCO3 ABG O2 Saturation ABG Base Excess ABG Hemoglobin ABG Oxyhemoglobin ABG Sodium 134.0 L ABG Potassium ABG Glucose 156 H Oxyhemoglobin Sodium Potassium Chloride Carbon Dioxide BUN Creatinine Glucose POC Glucose 120 H 128 H Arterial Blood Glucose 156 H Phenytoin 10/20/20 10/20/20 10/20/20 03:25 05:26 12:12 WBC MCHC Lymph % (Auto) [place] % (Auto) Lymph # (Auto) [place] # (Auto) Seg Neutrophils % Seg Neuts % (Manual) Lymphocytes % (Manual) Seg Neutrophils # Seg Neutrophils # Man Lymphocytes # (Manual) ABG pH POC ABG pCO2 POC ABG pO2 ABG pO2 ABG HCO3 ABG O2 Saturation ABG Base Excess ABG Hemoglobin ABG Oxyhemoglobin ABG Sodium 134.0 L ABG Potassium ABG Glucose 129 H Oxyhemoglobin Sodium Potassium Chloride Carbon Dioxide BUN Creatinine Glucose POC Glucose 125 H 136 H Arterial Blood Glucose 129 H Phenytoin 10/20/20 10/21/20 10/21/20 17:58 00:09 04:14 WBC MCHC Lymph % (Auto) [place] % (Auto) Lymph # (Auto) [place] # (Auto) Seg Neutrophils % Seg Neuts % (Manual) Lymphocytes % (Manual) Seg Neutrophils # Seg Neutrophils # Man Lymphocytes # (Manual) ABG pH POC ABG pCO2 POC ABG pO2 ABG pO2 ABG HCO3 ABG O2 Saturation ABG Base Excess ABG Hemoglobin ABG Oxyhemoglobin ABG Sodium 134.6 L ABG Potassium 4.8 H ABG Glucose 145 H Oxyhemoglobin Sodium Potassium Chloride Carbon Dioxide BUN Creatinine Glucose POC Glucose 148 H 144 H Arterial Blood Glucose 145 H Phenytoin 10/21/20 10/21/20 04:48 05:17 WBC MCHC Lymph % (Auto) [place] % (Auto) Lymph # (Auto) [place] # (Auto) Seg Neutrophils % Seg Neuts % (Manual) Lymphocytes % (Manual) Seg Neutrophils # Seg Neutrophils # Man Lymphocytes # (Manual) ABG pH POC ABG pCO2 POC ABG pO2 ABG pO2 ABG HCO3 ABG O2 Saturation ABG Base Excess ABG Hemoglobin ABG Oxyhemoglobin ABG Sodium ABG Potassium ABG Glucose Oxyhemoglobin Sodium Potassium 5.1 H Chloride Carbon Dioxide BUN 36 H Creatinine 1.3 H D Glucose 137 H POC Glucose 132 H Arterial Blood Glucose Phenytoin Chest x-ray: pending Allied health notes reviewed: nursing
--- NOTE | 2020-10-21 14:24 | Consultation ---
History of Present Illness Consult date: 10/21/20 Reason for consult: other (bowel obstruction) - History of present illness History of present illness: 65 year old female presented to ED 6 days ago unresponsive and showing seizure activity. She has been in the ICU intubated receiving treatment. Because of progressive abdominal distension a KUB was done that showed significant colonic distension c/w possible bowel obstruction. The nurse denies the patient has had a bowel movement recently and mentioned a small amount of fluid has been coming for the OG tube. The patient is intubated and does not communicate clearly if she is in pain or discomfort. Past History Past Medical History: hypertension, other (See HPI) Past Surgical History: Other (Brain surgery) Social history: single. denies: smoking, alcohol abuse, prescription drug abuse Family history: hypertension Medications and Allergies Allergies Allergy/AdvReac Type Severity Reaction Status Date / Time Unable to Assess Allergy Unverified 10/14/20 13:38 Home Medications Medication Instructions Recorded Confirmed Last Taken Type Unobtainable 10/14/20 10/14/20 Unknown History Active Meds: Active Medications Acetaminophen (Tylenol) 650 mg FEEDTUBE Q6H PRN PRN Reason: Non Cardiac Pain or Temp>100.5 Last Admin: 10/17/20 17:45 Dose: 650 mg Documented by: Albuterol (Proventil) 2.5 mg IH Q4HRT PRN PRN Reason: Shortness Of Breath Lipase/Protease/Amylase (Pancreaze Dr 10,500 Unit) 1 each FEEDTUBE PRN PRN PRN Reason: For Clogged Feeding Tube Dextrose (D50w (25gm) Syringe) 0 ml IV Q30MIN PRN; Protocol PRN Reason: Hypoglycemia Last Admin: 10/17/20 06:04 Dose: 10 ml Documented by: Docusate Sodium (Colace) 100 mg PO BID [facility] Last Admin: 10/21/20 09:31 Dose: 100 mg Documented by: Famotidine (Pepcid) 20 mg PO BID [facility] Last Admin: 10/21/20 09:31 Dose: 20 mg Documented by: Fentanyl (Sublimaze) 50 mcg IV Q10MIN PRN PRN Reason: ANALGESIA Last Admin: 10/19/20 16:51 Dose: 50 mcg Documented by: Heparin Sodium (Porcine) (Heparin) 5,000 unit SUB-Q Q12HR [facility] Last Admin: 10/21/20 09:32 Dose: 5,000 unit Documented by: Hydralazine HCl (Apresoline) 10 mg IV Q3H PRN PRN Reason: Blood Pressure Hydrophilic Ointment (Vaseline Lip Therapy) 1 applic TP Q2HR PRN PRN Reason: Dry Lips Fentanyl Citrate (Fentanyl Drip Premix) 2,000 mcg in 100 mls @ 4.99 mls/hr IV TITR [facility]; Protocol Last Titration: 10/21/20 09:05 Dose: 0 mcg/kg/hr, 0 mls/hr Documented by: Levetiracetam 1,500 mg/ (Dextrose) 115 mls @ 400 mls/hr IV Q12HR [facility] Last Admin: 10/21/20 10:58 Dose: 400 mls/hr Documented by: Lacosamide 200 mg/ Sodium (Chloride) 120 mls @ 100 mls/hr IV Q12H [facility] Last Admin: 10/21/20 03:34 Dose: 100 mls/hr Documented by: Lorazepam (Ativan) 2 mg IV Q1H PRN PRN Reason: seizures Last Admin: 10/20/20 14:17 Dose: 2 mg Documented by: Metoclopramide HCl (Reglan) 5 mg IV Q6H [facility] Last Admin: 10/21/20 09:32 Dose: 5 mg Documented by: Multi-Ingred Cream/Lotion/Oil/Oint (Artificial Tears Ophth Oint) 1 applic OU Q4HR PRN PRN Reason: Dry Eye(s) Phenytoin (Dilantin) 100 mg IV Q8HR [facility] Last Admin: 10/21/20 05:05 Dose: 100 mg Documented by: Polyethylene Glycol (Miralax [id number]) 17 gm PO QHS [facility] Last Admin: 10/20/20 22:51 Dose: 17 gm Documented by: Quetiapine Fumarate (Seroquel) 200 mg PO BID [facility] Last Admin: 10/21/20 09:32 Dose: 200 mg Documented by: Simple Syrup (Simple Syrup) 15 ml FEEDTUBE PRN PRN PRN Reason: Hypoglycemia Simple Syrup (Simple Syrup) 30 ml FEEDTUBE PRN PRN PRN Reason: Hypoglycemia Sodium Bicarbonate (Sodium Bicarbonate) 325 mg FEEDTUBE PRN PRN PRN Reason: For Clogged Feeding Tube Sodium Chloride (Sodium Chloride Flush Syringe 10 Ml) 10 ml IV BID [facility] Last Admin: 10/21/20 11:45 Dose: 10 ml Documented by: Sodium Chloride (Sodium Chloride Flush Syringe 10 Ml) 10 ml IV PRN PRN PRN Reason: LINE FLUSH Valsartan (Diovan) 80 mg PO Q12HR [facility] Last Admin: 10/21/20 09:31 Dose: 80 mg Documented by: Review of Systems ROS unobtainable: due to endotracheal tube Exam Vital Signs Pulse Resp Pulse Ox 113 H 12 94 10/14/20 12:56 10/14/20 12:56 10/14/20 12:56 - General physical appearance Positive: well developed, no distress, obese, other (shows agitation with arousal) - Eyes Negative: icteric - Respiratory Positive: normal expansion, normal respiratory effort - Cardiovascular Heart Sounds: Present: S1 & S2 - Extremities Extremities: no ischemia - Abdomen Abdomen: Present: soft, distended. Absent: rebound, guarding, rigid, wound, surgical scars Results - Labs 10/19/20 07:59 10/21/20 04:48 Abnormal lab results 10/20/20 10/21/20 10/21/20 Range/Units 17:58 00:09 04:14 POC ABG pO2 (83-108) mmHg ABG Sodium 134.6 L (136.0-145.0) mmol/L ABG Potassium 4.8 H (3.40-4.50) mmol/L ABG Glucose 145 H (65-95) mg/dL Potassium (3.6-5.0) mmol/L BUN (7-17) mg/dL Creatinine (0.6-1.2) mg/dL Glucose (65-100) mg/dL POC Glucose 148 H 144 H (70-105) mg/dL Arterial Blood Glucose 145 H (65-95) mg/dL 10/21/20 10/21/20 10/21/20 Range/Units 04:48 05:17 12:43 POC ABG pO2 (83-108) mmHg ABG Sodium (136.0-145.0) mmol/L ABG Potassium (3.40-4.50) mmol/L ABG Glucose (65-95) mg/dL Potassium 5.1 H (3.6-5.0) mmol/L BUN 36 H (7-17) mg/dL Creatinine 1.3 H D (0.6-1.2) mg/dL Glucose 137 H (65-100) mg/dL POC Glucose 132 H 133 H (70-105) mg/dL Arterial Blood Glucose (65-95) mg/dL 10/21/20 Range/Units 13:43 POC ABG pO2 79.6 L (83-108) mmHg ABG Sodium 135.8 L (136.0-145.0) mmol/L ABG Potassium 4.9 H (3.40-4.50) mmol/L ABG Glucose 155 H (65-95) mg/dL Potassium (3.6-5.0) mmol/L BUN (7-17) mg/dL Creatinine (0.6-1.2) mg/dL Glucose (65-100) mg/dL POC Glucose (70-105) mg/dL Arterial Blood Glucose 155 H (65-95) mg/dL Diabetes panel 10/21/20 Range/Units 04:48 Sodium 140 (137-145) mmol/L Potassium 5.1 H (3.6-5.0) mmol/L Chloride 104.1 (98-107) mmol/L Carbon Dioxide 22 (22-30) mmol/L BUN 36 H (7-17) mg/dL Creatinine 1.3 H D (0.6-1.2) mg/dL Glucose 137 H (65-100) mg/dL Calcium 9.1 (8.4-10.2) mg/dL Calcium panel 10/21/20 Range/Units 04:48 Calcium 9.1 (8.4-10.2) mg/dL Pituitary panel 10/21/20 Range/Units 04:48 Sodium 140 (137-145) mmol/L Potassium 5.1 H (3.6-5.0) mmol/L Chloride 104.1 (98-107) mmol/L Carbon Dioxide 22 (22-30) mmol/L BUN 36 H (7-17) mg/dL Creatinine 1.3 H D (0.6-1.2) mg/dL Glucose 137 H (65-100) mg/dL Calcium 9.1 (8.4-10.2) mg/dL Adrenal panel 10/21/20 Range/Units 04:48 Sodium 140 (137-145) mmol/L Potassium 5.1 H (3.6-5.0) mmol/L Chloride 104.1 (98-107) mmol/L Carbon Dioxide 22 (22-30) mmol/L BUN 36 H (7-17) mg/dL Creatinine 1.3 H D (0.6-1.2) mg/dL Glucose 137 H (65-100) mg/dL Calcium 9.1 (8.4-10.2) mg/dL - Imaging Abdominal x-ray: report reviewed, image reviewed (Entire colon appears distended with air. Read mentions possible sigmoid volvulus, unclear as there is no obvious decompressed colon segment that is normally associated with colonic volvulus.) Assessment and Plan 65 year old female with worsening abdominal distension c/w possible bowel obst ruction. volvulus? Afebrile and stable. Will get stat CT scan A/P to evaluate further, pending results may get GI consult to decompress colon. Surgical plan and intervention pending findings and workup.
--- NOTE | 2020-10-21 15:36 | Progress Note ---
Assessment and Plan 65 yo female with htn, obesity, presenting w/ status epilepticus. 1. Status Epilepticus - continue keppra at 1500 mg iv/po q12; vimpat 200 mg iv/po q12; increase phenytoin to 120 mg iv/po tid; do not wean off Versed gtt until continous EEG is available (transfer requested); EEG on 10/18/2020 revealed continous epileptiform discharges at the right frontal region. 2. Therapeutic Drug Monitoring - new dilantin level is pending; ordered a stat dilantin and an AM dilantin level also. 3. Metabolic Encephalopathy - in the setting of underlying infection. 4. Currently, patient needs transfer to a higher level of care since there is no [facility] coverage over the weekend, the patient would benefit from continuous EEG monitoring and the EEG (?done off or on Versed) reveals epileptiform discharges while on 3 AEDs as above. I have given my cell contact to the RN, who will page the hospitalist to contact me regarding the plan/care of this patient. Tony Pedro MD Neurology Subjective Date of service: 10/21/20 Principal diagnosis: Ac hypoxemic & hypercapnic resp failure; Status epilepticus; HTNsive emerge Interval history: No clinical seizures per RN today; EEG was done on 10/18 and EEG results given to me by RN on 10/19 (report was not available to me) as diffuse slowing. However, official report reveals epileptiform discharges at the right frontal region. Evaluated by Dr. Rubén pierre and bolus fosphenytoin given. Objective - Exam Narrative Exam: Patient is not seen today as she remains intubated and does not manifest any clinical seizure activity - Vital Sign Vital Signs - 12hr 10/21/20 10/21/20 10/21/20 03:41 03:51 03:55 Temperature 98.3 F Pulse Rate 73 74 Pulse Rate [ From Monitor] Respiratory 20 20 Rate Blood Pressure 84/47 O2 Sat by Pulse 97 97 Oximetry 10/21/20 10/21/20 10/21/20 04:01 04:11 04:21 Temperature Pulse Rate 84 79 76 Pulse Rate [ From Monitor] Respiratory 27 H 20 20 Rate Blood Pressure 115/62 115/62 115/62 O2 Sat by Pulse 97 97 97 Oximetry 10/21/20 10/21/20 10/21/20 04:31 04:41 04:51 Temperature Pulse Rate 78 78 80 Pulse Rate [ From Monitor] Respiratory 20 20 22 Rate Blood Pressure 108/53 108/53 108/53 O2 Sat by Pulse 94 97 98 Oximetry 10/21/20 10/21/20 10/21/20 05:01 05:11 05:21 Temperature Pulse Rate 82 80 78 Pulse Rate [ From Monitor] Respiratory 20 22 21 Rate Blood Pressure 124/77 124/77 124/77 O2 Sat by Pulse 95 98 96 Oximetry 10/21/20 10/21/20 10/21/20 05:30 05:41 05:51 Temperature Pulse Rate 76 78 84 Pulse Rate [ From Monitor] Respiratory 20 20 22 Rate Blood Pressure 96/60 96/60 96/60 O2 Sat by Pulse 96 97 97 Oximetry 10/21/20 10/21/20 10/21/20 06:01 06:11 06:21 Temperature Pulse Rate 89 91 H 83 Pulse Rate [ From Monitor] Respiratory 21 27 H 20 Rate Blood Pressure 96/60 96/60 121/74 O2 Sat by Pulse 97 97 96 Oximetry 10/21/20 10/21/20 10/21/20 06:30 06:41 06:51 Temperature Pulse Rate 81 80 77 Pulse Rate [ From Monitor] Respiratory 20 20 20 Rate Blood Pressure 118/70 118/70 118/70 O2 Sat by Pulse 97 96 96 Oximetry 10/21/20 10/21/20 10/21/20 07:00 07:11 07:21 Temperature Pulse Rate 79 76 78 Pulse Rate [ From Monitor] Respiratory 20 20 20 Rate Blood Pressure 103/64 103/64 103/64 O2 Sat by Pulse 95 96 96 Oximetry 10/21/20 10/21/20 10/21/20 07:30 07:41 07:51 Temperature Pulse Rate 76 72 74 Pulse Rate [ From Monitor] Respiratory 20 20 20 Rate Blood Pressure 103/60 103/60 103/60 O2 Sat by Pulse 96 97 97 Oximetry 10/21/20 10/21/20 10/21/20 08:00 08:11 08:14 Temperature 99.1 F Pulse Rate 71 75 77 Pulse Rate [ 72 From Monitor] Respiratory 22 13 13 Rate Blood Pressure 90/55 90/55 90/55 O2 Sat by Pulse 100 92 94 Oximetry 10/21/20 10/21/20 10/21/20 08:21 08:30 08:41 Temperature Pulse Rate 79 77 93 H Pulse Rate [ From Monitor] Respiratory 17 14 26 H Rate Blood Pressure 90/55 109/66 109/66 O2 Sat by Pulse 95 95 97 Oximetry 10/21/20 10/21/20 10/21/20 08:51 09:01 09:11 Temperature Pulse Rate 86 83 81 Pulse Rate [ From Monitor] Respiratory 15 20 16 Rate Blood Pressure 109/66 125/75 109/66 O2 Sat by Pulse 96 94 95 Oximetry 10/21/20 10/21/20 10/21/20 09:21 09:30 09:31 Temperature Pulse Rate 82 80 82 Pulse Rate [ From Monitor] Respiratory 14 14 Rate Blood Pressure 109/66 104/67 104/67 O2 Sat by Pulse 96 95 Oximetry 10/21/20 10/21/20 10/21/20 09:41 09:51 10:00 Temperature Pulse Rate 80 81 84 Pulse Rate [ From Monitor] Respiratory 16 16 17 Rate Blood Pressure 125/75 125/75 110/71 O2 Sat by Pulse 96 95 95 Oximetry 10/21/20 10/21/20 10/21/20 10:11 10:21 10:31 Temperature Pulse Rate 82 83 87 Pulse Rate [ From Monitor] Respiratory 17 17 21 Rate Blood Pressure 110/71 110/71 86/69 O2 Sat by Pulse 95 96 97 Oximetry 10/21/20 10/21/20 10/21/20 10:41 10:51 11:00 Temperature Pulse Rate 86 87 85 Pulse Rate [ From Monitor] Respiratory 18 25 H 16 Rate Blood Pressure 86/69 86/69 98/59 O2 Sat by Pulse 95 95 96 Oximetry 10/21/20 10/21/20 10/21/20 11:11 11:21 11:30 Temperature Pulse Rate 88 86 86 Pulse Rate [ From Monitor] Respiratory 18 17 17 Rate Blood Pressure 98/59 98/59 101/59 O2 Sat by Pulse 96 96 97 Oximetry 10/21/20 10/21/20 10/21/20 11:41 11:51 12:00 Temperature 98.1 F Pulse Rate 87 86 86 Pulse Rate [ 86 From Monitor] Respiratory 17 28 H 22 Rate Blood Pressure 101/59 101/59 O2 Sat by Pulse 97 96 100 Oximetry 10/21/20 10/21/20 10/21/20 12:01 12:11 12:21 Temperature Pulse Rate 85 83 95 H Pulse Rate [ From Monitor] Respiratory 19 19 25 H Rate Blood Pressure 95/55 105/65 105/65 O2 Sat by Pulse 96 97 96 Oximetry 10/21/20 10/21/20 10/21/20 12:30 12:41 12:51 Temperature Pulse Rate 86 91 H 87 Pulse Rate [ From Monitor] Respiratory 27 H 27 H 25 H Rate Blood Pressure 103/62 105/65 105/65 O2 Sat by Pulse 95 97 96 Oximetry 10/21/20 10/21/20 10/21/20 13:01 13:11 13:21 Temperature Pulse Rate 90 90 89 Pulse Rate [ From Monitor] Respiratory 22 20 22 Rate Blood Pressure 109/63 103/62 103/62 O2 Sat by Pulse 96 97 96 Oximetry 10/21/20 10/21/20 10/21/20 13:30 13:41 13:51 Temperature Pulse Rate 92 H 92 H 87 Pulse Rate [ From Monitor] Respiratory 24 27 H 19 Rate Blood Pressure 107/72 109/63 109/63 O2 Sat by Pulse 96 96 96 Oximetry 10/21/20 10/21/20 10/21/20 14:00 14:11 14:21 Temperature Pulse Rate 90 92 H 88 Pulse Rate [ From Monitor] Respiratory 22 30 H 18 Rate Blood Pressure 100/66 100/66 100/66 O2 Sat by Pulse 95 96 96 Oximetry 10/21/20 10/21/20 10/21/20 14:31 14:41 14:51 Temperature Pulse Rate 88 88 93 H Pulse Rate [ From Monitor] Respiratory 24 19 29 H Rate Blood Pressure 68/44 111/73 111/73 O2 Sat by Pulse 97 96 97 Oximetry 10/21/20 10/21/20 15:01 15:11 Temperature Pulse Rate 96 H 94 H Pulse Rate [ From Monitor] Respiratory 21 23 Rate Blood Pressure 119/80 119/80 O2 Sat by Pulse 94 97 Oximetry - Laboratory Findings CBC and BMP: 10/19/20 07:59 10/21/20 04:48 Abnormal Lab Findings: Abnormal Labs 10/14/20 10/14/20 10/14/20 13:36 13:36 14:22 WBC 14.7 H MCHC 35 H Lymph % (Auto) [place] % (Auto) Lymph # (Auto) [place] # (Auto) Seg Neutrophils % Seg Neuts % (Manual) 89.0 H Lymphocytes % (Manual) 4.0 L Seg Neutrophils # Seg Neutrophils # Man 13.1 H Lymphocytes # (Manual) 0.6 L ABG pH 7.298 L POC ABG pCO2 POC ABG pO2 ABG pO2 285.8 H ABG HCO3 ABG O2 Saturation 99.5 H ABG Base Excess -4.1 L ABG Hemoglobin ABG Oxyhemoglobin ABG Sodium ABG Potassium ABG Glucose Oxyhemoglobin Sodium 131 L Potassium Chloride 97.2 L Carbon Dioxide BUN Creatinine Glucose 170 H POC Glucose Arterial Blood Glucose Phenytoin 10/14/20 10/15/20 10/15/20 17:09 03:35 04:33 WBC MCHC 36 H Lymph % (Auto) 9.6 L [place] % (Auto) 10.1 H Lymph # (Auto) 1.0 L [place] # (Auto) 1.1 H Seg Neutrophils % 79.8 H Seg Neuts % (Manual) Lymphocytes % (Manual) Seg Neutrophils # 8.4 H Seg Neutrophils # Man Lymphocytes # (Manual) ABG pH 7.536 H POC ABG pCO2 POC ABG pO2 ABG pO2 185.0 H 110.2 H ABG HCO3 ABG O2 Saturation 99.2 H ABG Base Excess ABG Hemoglobin ABG Oxyhemoglobin ABG Sodium ABG Potassium ABG Glucose Oxyhemoglobin Sodium Potassium Chloride Carbon Dioxide BUN Creatinine Glucose POC Glucose Arterial Blood Glucose Phenytoin 10/15/20 10/15/20 10/16/20 04:33 13:12 00:09 WBC MCHC Lymph % (Auto) [place] % (Auto) Lymph # (Auto) [place] # (Auto) Seg Neutrophils % Seg Neuts % (Manual) Lymphocytes % (Manual) Seg Neutrophils # Seg Neutrophils # Man Lymphocytes # (Manual) ABG pH 7.297 L POC ABG pCO2 51.0 H POC ABG pO2 56.7 L ABG pO2 ABG HCO3 ABG O2 Saturation ABG Base Excess ABG Hemoglobin ABG Oxyhemoglobin 84.6 L ABG Sodium 134.4 L ABG Potassium ABG Glucose 118 H Oxyhemoglobin Sodium Potassium Chloride Carbon Dioxide BUN Creatinine Glucose 120 H POC Glucose 114 H Arterial Blood Glucose 118 H Phenytoin 10/16/20 10/16/20 10/17/20 05:42 05:46 04:08 WBC MCHC Lymph % (Auto) [place] % (Auto) Lymph # (Auto) [place] # (Auto) Seg Neutrophils % Seg Neuts % (Manual) Lymphocytes % (Manual) Seg Neutrophils # Seg Neutrophils # Man Lymphocytes # (Manual) ABG pH POC ABG pCO2 POC ABG pO2 ABG pO2 96.6 H ABG HCO3 ABG O2 Saturation ABG Base Excess ABG Hemoglobin ABG Oxyhemoglobin ABG Sodium 132.6 L ABG Potassium ABG Glucose 112 H Oxyhemoglobin Sodium Potassium Chloride Carbon Dioxide BUN Creatinine Glucose POC Glucose 106 H Arterial Blood Glucose 112 H Phenytoin 10/17/20 10/17/20 10/17/20 09:23 09:23 10:46 WBC 12.3 H MCHC Lymph % (Auto) [place] % (Auto) Lymph # (Auto) [place] # (Auto) Seg Neutrophils % Seg Neuts % (Manual) Lymphocytes % (Manual) Seg Neutrophils # Seg Neutrophils # Man Lymphocytes # (Manual) ABG pH POC ABG pCO2 POC ABG pO2 71.6 L ABG pO2 ABG HCO3 ABG O2 Saturation ABG Base Excess ABG Hemoglobin ABG Oxyhemoglobin 92.6 L ABG Sodium 134.8 L ABG Potassium ABG Glucose 105 H Oxyhemoglobin Sodium Potassium Chloride Carbon Dioxide 21 L BUN 19 H Creatinine Glucose POC Glucose Arterial Blood Glucose 105 H Phenytoin 10/17/20 10/18/20 10/18/20 23:43 04:18 08:32 WBC MCHC Lymph % (Auto) [place] % (Auto) Lymph # (Auto) [place] # (Auto) Seg Neutrophils % Seg Neuts % (Manual) Lymphocytes % (Manual) Seg Neutrophils # Seg Neutrophils # Man Lymphocytes # (Manual) ABG pH POC ABG pCO2 POC ABG pO2 81.9 L ABG pO2 ABG HCO3 ABG O2 Saturation ABG Base Excess ABG Hemoglobin ABG Oxyhemoglobin ABG Sodium 133.3 L ABG Potassium ABG Glucose 125 H Oxyhemoglobin Sodium Potassium Chloride Carbon Dioxide BUN Creatinine Glucose POC Glucose 118 H Arterial Blood Glucose 125 H Phenytoin 7.1 L 10/18/20 10/18/20 10/18/20 08:32 08:32 12:34 WBC MCHC Lymph % (Auto) 12.4 L [place] % (Auto) Lymph # (Auto) [place] # (Auto) Seg Neutrophils % 77.0 H Seg Neuts % (Manual) Lymphocytes % (Manual) Seg Neutrophils # Seg Neutrophils # Man Lymphocytes # (Manual) ABG pH POC ABG pCO2 POC ABG pO2 ABG pO2 ABG HCO3 ABG O2 Saturation ABG Base Excess ABG Hemoglobin ABG Oxyhemoglobin ABG Sodium ABG Potassium ABG Glucose Oxyhemoglobin Sodium 135 L Potassium Chloride Carbon Dioxide BUN 21 H Creatinine Glucose 131 H POC Glucose 121 H Arterial Blood Glucose Phenytoin 10/18/20 10/18/20 10/19/20 18:12 23:47 04:55 WBC MCHC Lymph % (Auto) [place] % (Auto) Lymph # (Auto) [place] # (Auto) Seg Neutrophils % Seg Neuts % (Manual) Lymphocytes % (Manual) Seg Neutrophils # Seg Neutrophils # Man Lymphocytes # (Manual) ABG pH POC ABG pCO2 POC ABG pO2 ABG pO2 ABG HCO3 27.1 H ABG O2 Saturation ABG Base Excess ABG Hemoglobin 11.1 L ABG Oxyhemoglobin ABG Sodium ABG Potassium ABG Glucose Oxyhemoglobin 94.9 L Sodium Potassium Chloride Carbon Dioxide BUN Creatinine Glucose POC Glucose 133 H 142 H Arterial Blood Glucose Phenytoin 10/19/20 10/19/20 10/19/20 06:02 07:59 12:35 WBC MCHC Lymph % (Auto) [place] % (Auto) Lymph # (Auto) [place] # (Auto) Seg Neutrophils % Seg Neuts % (Manual) Lymphocytes % (Manual) Seg Neutrophils # Seg Neutrophils # Man Lymphocytes # (Manual) ABG pH POC ABG pCO2 POC ABG pO2 ABG pO2 ABG HCO3 ABG O2 Saturation ABG Base Excess ABG Hemoglobin ABG Oxyhemoglobin ABG Sodium ABG Potassium ABG Glucose Oxyhemoglobin Sodium Potassium Chloride Carbon Dioxide BUN Creatinine Glucose 144 H POC Glucose 143 H 132 H Arterial Blood Glucose Phenytoin 10/19/20 10/19/20 10/19/20 16:12 16:31 23:17 WBC MCHC Lymph % (Auto) [place] % (Auto) Lymph # (Auto) [place] # (Auto) Seg Neutrophils % Seg Neuts % (Manual) Lymphocytes % (Manual) Seg Neutrophils # Seg Neutrophils # Man Lymphocytes # (Manual) ABG pH 7.461 H POC ABG pCO2 POC ABG pO2 75.8 L ABG pO2 ABG HCO3 ABG O2 Saturation ABG Base Excess ABG Hemoglobin ABG Oxyhemoglobin ABG Sodium 134.0 L ABG Potassium ABG Glucose 156 H Oxyhemoglobin Sodium Potassium Chloride Carbon Dioxide BUN Creatinine Glucose POC Glucose 120 H 128 H Arterial Blood Glucose 156 H Phenytoin 10/20/20 10/20/20 10/20/20 03:25 05:26 12:12 WBC MCHC Lymph % (Auto) [place] % (Auto) Lymph # (Auto) [place] # (Auto) Seg Neutrophils % Seg Neuts % (Manual) Lymphocytes % (Manual) Seg Neutrophils # Seg Neutrophils # Man Lymphocytes # (Manual) ABG pH POC ABG pCO2 POC ABG pO2 ABG pO2 ABG HCO3 ABG O2 Saturation ABG Base Excess ABG Hemoglobin ABG Oxyhemoglobin ABG Sodium 134.0 L ABG Potassium ABG Glucose 129 H Oxyhemoglobin Sodium Potassium Chloride Carbon Dioxide BUN Creatinine Glucose POC Glucose 125 H 136 H Arterial Blood Glucose 129 H Phenytoin 10/20/20 10/21/20 10/21/20 17:58 00:09 04:14 WBC MCHC Lymph % (Auto) [place] % (Auto) Lymph # (Auto) [place] # (Auto) Seg Neutrophils % Seg Neuts % (Manual) Lymphocytes % (Manual) Seg Neutrophils # Seg Neutrophils # Man Lymphocytes # (Manual) ABG pH POC ABG pCO2 POC ABG pO2 ABG pO2 ABG HCO3 ABG O2 Saturation ABG Base Excess ABG Hemoglobin ABG Oxyhemoglobin ABG Sodium 134.6 L ABG Potassium 4.8 H ABG Glucose 145 H Oxyhemoglobin Sodium Potassium Chloride Carbon Dioxide BUN Creatinine Glucose POC Glucose 148 H 144 H Arterial Blood Glucose 145 H Phenytoin 10/21/20 10/21/20 10/21/20 04:48 05:17 12:43 WBC MCHC Lymph % (Auto) [place] % (Auto) Lymph # (Auto) [place] # (Auto) Seg Neutrophils % Seg Neuts % (Manual) Lymphocytes % (Manual) Seg Neutrophils # Seg Neutrophils # Man Lymphocytes # (Manual) ABG pH POC ABG pCO2 POC ABG pO2 ABG pO2 ABG HCO3 ABG O2 Saturation ABG Base Excess ABG Hemoglobin ABG Oxyhemoglobin ABG Sodium ABG Potassium ABG Glucose Oxyhemoglobin Sodium Potassium 5.1 H Chloride Carbon Dioxide BUN 36 H Creatinine 1.3 H D Glucose 137 H POC Glucose 132 H 133 H Arterial Blood Glucose Phenytoin 10/21/20 13:43 WBC MCHC Lymph % (Auto) [place] % (Auto) Lymph # (Auto) [place] # (Auto) Seg Neutrophils % Seg Neuts % (Manual) Lymphocytes % (Manual) Seg Neutrophils # Seg Neutrophils # Man Lymphocytes # (Manual) ABG pH POC ABG pCO2 POC ABG pO2 79.6 L ABG pO2 ABG HCO3 ABG O2 Saturation ABG Base Excess ABG Hemoglobin ABG Oxyhemoglobin ABG Sodium 135.8 L ABG Potassium 4.9 H ABG Glucose 155 H Oxyhemoglobin Sodium Potassium Chloride Carbon Dioxide BUN Creatinine Glucose POC Glucose Arterial Blood Glucose 155 H Phenytoin
--- NOTE | 2020-10-21 18:08 | Cat Scan Report ---
CT abdomen pelvis wo con INDICATION: bowel obstruction evaluation. TECHNIQUE: All CT scans at this location are performed using the following dose modulation technique: Automated exposure control. Helical slices were obtained through the abdomen and pelvis. No contrast is adminis tered. COMPARISON: Abdominal radiograph dated 10/20/2020 FINDINGS: Abdomen: There is atelectasis in the lung bases. The heart is upper limits of normal in size. There is cholelithiasis. The liver, spleen, pancreas, adrenal glands, and kidneys show no acute abnor mality. The colon is distended with air. The colon is redundant. There are air-filled portion of the colon is distended isthere left colon. Is no volvulus identified. The small bowel is normal in caliber. No di screte point of obstruction is seen. Atherosclerotic calcifications are noted in the aorta and iliac arteries. There is no free air. There are no abnormal fluid collections. Nasogastric tube tip is in the gastric antrum. Pelvis: The sigmoid colon is normal in caliber. There is small amount of air and stool in the sigmoid colon and rectum. There is no adenopathy. Vascular calcifications are noted. There is a Mata catheter in the urinary b ladder which is mildly to moderately distended despite the presence of the Mata catheter. On review of bone windows, no acute osseous abnormalities are seen. There is mild superior endplate c ompression of T10, T12 and L1. This does not appear to be acute. There is degenerative change in the lumbar spine. There is mild degenerative change in both hips. IMPRESSION: 1. There is prominent gaseous distention of the right colon, transverse colon and left colon. The cec um measures approximately 9 cm in diameter. The appearance is most characteristic of colonic ileus or Aspen's syndrome. 2. There is cholelithiasis. 3. There is a Mata catheter in the urinary bladder. Any bladder is mildly to moderately distended de spite the presence of the catheter. Signer Name: Russell Mcarthur MD Signed: 10/21/2020 6:03 PM Workstation Name: [id number]
[2020-10-21] MEDS: PHENYTOIN IV SCH (18:30)
[2020-10-21] MEDS: SODIUM CHLORIDE 0.9% IV SCH (18:30)
[2020-10-21 19:00] LABS: Basophils # (Auto) 0.1 K/mm3 (0.0-0.1); Basophils % (Auto) 0.6 % (0.0-1.8); Eosinophils # (Auto) 0.1 K/mm3 (0.0-0.4); Eosinophils % (Auto) 0.6 % (0.0-4.3); Hematocrit 34.5 % (30.3-42.9); Hemoglobin 11.2 gm/dl (10.1-14.3); Lymphocytes # (Auto) 1.1 K/mm3 (1.2-5.4); Lymphocytes % (Auto) 7.9 % (13.4-35.0); Mean Corpuscular HGB Conc 33 % (30-34); Mean Corpuscular Volume 86 fl (79-97); Monocytes # (Auto) 1.5 K/mm3 (0.0-0.8); Monocytes % (Auto) 11.1 % (0.0-7.3); Platelet Count 268 K/mm3 (140-440); Red Cell Distribution Width 14.9 % (13.2-15.2)
[2020-10-21] MEDS: fentaNYL 100 MCG/2 ML INJ IV PRN (19:29)
[2020-10-21] MEDS: LORazepam 2 MG/ML VIAL IV PRN (20:26)
--- NOTE | 2020-10-21 21:38 | Progress Note ---
Assessment and Plan The high probability of a clinically significant, sudden or life threatening deterioration of the [cardiac, pulmonary, renal] system(s) required my full and direct attention, intervention and personal management. The aggregate critical care time was [40] minutes. This time is in addition to time spent performing reported procedures but includes the following: [x] Data Review and interpretation [x] Patient assessment and monitoring of vital signs [x] Documentation [x] Medication orders and management (1) Acute respiratory failure Current Visit: Yes Status: Acute Qualifiers: Respiratory failure complication: hypoxia Qualified Code(s): J96.01 - Acute respiratory failure with hypoxia Plan to address problem: Patient intubated and on ventilatory support, daily spontaneous breathing trials, sedation holiday, wean vent as tolerated, critical care team consulted. (2) Status epilepticus Current Visit: Yes Status: Acute Plan to address problem: Supportive care. Seizure precautions, Keppra 1 g IV in the emergency department, Keppra 500 mg twice daily. Teleneurology consulted. Started on for fosphenytoin sodium 500 mg IV Neurology consult appreciated (3) Hypertensive emergency Current Visit: Yes Status: Acute Plan to address problem: Monitor blood pressure every shift, continue IV hydralazine, (4) Acute encephalopathy Current Visit: Yes Status: Acute Plan to address problem: CT head, neuro check, seizure precautions, aspiration precautions, (5) Leukocytosis Current Visit: Yes Status: Acute Plan to address problem: Chest x-ray, CBC, urinalysis, empiric IV antibiotic therapy x1 dose, repeat CBC in a.m. (6) DVT prophylaxis Current Visit: Yes Status: Acute Plan to address problem: SCD to bilateral lower extremities while in bed, prophylactic anticoagulation (7) Advance care planning Current Visit: Yes Status: Acute Plan to address problem: Disease education conducted, patient is full code, prognosis discussed, +30 minutes. Subjective Date of service: 10/21/20 Principal diagnosis: Ac hypoxemic & hypercapnic resp failure; Status epilepticus; HTNsive emerge Interval history: 65 YO Female with Obesity, HTN, presents to ED for evaluation. Patient is intubated and on ventilatory support at the time of my evaluation and is unable to provide history. Patient history is taken from EMS staff, ED staff. As per staff the patient was found down and unresponsive by her neighbor. Patient neighbor describe seizure-like activity. EMS was notified and upon arrival the patient was found to be in distress and actively seizing. Patient treated with 2 mg of Ativan which terminated the seizures. The patient was subsequently transported to [facility] for further evaluation and care of the aforementioned symptoms. Patient was seen and evaluated in the emergency department. All lab and imaging studies reviewed. Patient found to have symptoms consistent with status epilepticus which was evidenced by recurrent seizures in the emergency department with concomitant decrease in pulse oximetry to 84% on room air. The patient was also found to have hypertensive emergency with a blood pressure of 223/143. The patient was deemed unable to protect her airway and was intubated for airway protection. Patient also found to have acute encephalopathy. Patient admitted to ICU due to increased risk of decompensation. Critical care team consulted in ED. No prior admission for review. No medication listed at time of admission for reconciliation. Advanced care planning conducted in ED. No seizure activity Objective - Exam Narrative Exam: Intubated - Constitutional Vitals: Vital Signs - 12hr 10/21/20 10/21/20 10/21/20 09:41 09:51 10:00 Temperature Pulse Rate 80 81 84 Pulse Rate [ From Monitor] Respiratory 16 16 17 Rate Blood Pressure 125/75 125/75 110/71 O2 Sat by Pulse 96 95 95 Oximetry 10/21/20 10/21/20 10/21/20 10:11 10:21 10:31 Temperature Pulse Rate 82 83 87 Pulse Rate [ From Monitor] Respiratory 17 17 21 Rate Blood Pressure 110/71 110/71 86/69 O2 Sat by Pulse 95 96 97 Oximetry 10/21/20 10/21/20 10/21/20 10:41 10:51 11:00 Temperature Pulse Rate 86 87 85 Pulse Rate [ From Monitor] Respiratory 18 25 H 16 Rate Blood Pressure 86/69 86/69 98/59 O2 Sat by Pulse 95 95 96 Oximetry 10/21/20 10/21/20 10/21/20 11:11 11:21 11:30 Temperature Pulse Rate 88 86 86 Pulse Rate [ From Monitor] Respiratory 18 17 17 Rate Blood Pressure 98/59 98/59 101/59 O2 Sat by Pulse 96 96 97 Oximetry 10/21/20 10/21/20 10/21/20 11:41 11:51 12:00 Temperature 98.1 F Pulse Rate 87 86 86 Pulse Rate [ 86 From Monitor] Respiratory 17 28 H 22 Rate Blood Pressure 101/59 101/59 O2 Sat by Pulse 97 96 100 Oximetry 10/21/20 10/21/20 10/21/20 12:01 12:11 12:21 Temperature Pulse Rate 85 83 95 H Pulse Rate [ From Monitor] Respiratory 19 19 25 H Rate Blood Pressure 95/55 105/65 105/65 O2 Sat by Pulse 96 97 96 Oximetry 10/21/20 10/21/20 10/21/20 12:30 12:41 12:51 Temperature Pulse Rate 86 91 H 87 Pulse Rate [ From Monitor] Respiratory 27 H 27 H 25 H Rate Blood Pressure 103/62 105/65 105/65 O2 Sat by Pulse 95 97 96 Oximetry 10/21/20 10/21/20 10/21/20 13:01 13:11 13:21 Temperature Pulse Rate 90 90 89 Pulse Rate [ From Monitor] Respiratory 22 20 22 Rate Blood Pressure 109/63 103/62 103/62 O2 Sat by Pulse 96 97 96 Oximetry 10/21/20 10/21/20 10/21/20 13:30 13:41 13:51 Temperature Pulse Rate 92 H 92 H 87 Pulse Rate [ From Monitor] Respiratory 24 27 H 19 Rate Blood Pressure 107/72 109/63 109/63 O2 Sat by Pulse 96 96 96 Oximetry 10/21/20 10/21/20 10/21/20 14:00 14:11 14:21 Temperature Pulse Rate 90 92 H 88 Pulse Rate [ From Monitor] Respiratory 22 30 H 18 Rate Blood Pressure 100/66 100/66 100/66 O2 Sat by Pulse 95 96 96 Oximetry 10/21/20 10/21/20 10/21/20 14:31 14:41 14:51 Temperature Pulse Rate 88 88 93 H Pulse Rate [ From Monitor] Respiratory 24 19 29 H Rate Blood Pressure 68/44 111/73 111/73 O2 Sat by Pulse 97 96 97 Oximetry 10/21/20 10/21/20 10/21/20 15:01 15:11 15:21 Temperature Pulse Rate 96 H 94 H 94 H Pulse Rate [ From Monitor] Respiratory 21 23 21 Rate Blood Pressure 119/80 119/80 119/80 O2 Sat by Pulse 94 97 97 Oximetry 10/21/20 10/21/20 10/21/20 15:31 15:41 15:50 Temperature Pulse Rate 97 H 89 88 Pulse Rate [ From Monitor] Respiratory 28 H 16 22 Rate Blood Pressure 99/80 99/80 99/80 O2 Sat by Pulse 96 95 96 Oximetry 10/21/20 10/21/20 10/21/20 16:00 16:01 16:11 Temperature 97.6 F Pulse Rate 93 H 97 H 105 H Pulse Rate [ 108 H From Monitor] Respiratory 22 29 H 26 H Rate Blood Pressure 99/80 73/51 O2 Sat by Pulse 94 97 96 Oximetry 10/21/20 10/21/20 10/21/20 16:21 16:30 16:37 Temperature Pulse Rate 107 H 101 H 94 H Pulse Rate [ From Monitor] Respiratory 30 H 21 24 Rate Blood Pressure 73/51 131/72 131/72 O2 Sat by Pulse 96 95 96 Oximetry 10/21/20 10/21/20 10/21/20 16:41 16:51 17:00 Temperature Pulse Rate 93 H 109 H 98 H Pulse Rate [ From Monitor] Respiratory 19 35 H 20 Rate Blood Pressure 131/72 131/72 111/59 O2 Sat by Pulse 95 95 96 Oximetry 10/21/20 10/21/20 10/21/20 17:11 17:21 17:45 Temperature Pulse Rate 87 86 92 H Pulse Rate [ From Monitor] Respiratory 17 18 Rate Blood Pressure 111/59 111/59 111/59 O2 Sat by Pulse 96 96 100 Oximetry 10/21/20 10/21/20 10/21/20 17:51 18:00 18:11 Temperature Pulse Rate 89 84 83 Pulse Rate [ From Monitor] Respiratory 18 17 18 Rate Blood Pressure 111/59 108/64 108/64 O2 Sat by Pulse 97 98 98 Oximetry 10/21/20 10/21/20 10/21/20 18:21 19:00 19:31 Temperature Pulse Rate 83 76 96 H Pulse Rate [ From Monitor] Respiratory 18 17 17 Rate Blood Pressure 108/64 103/60 147/71 O2 Sat by Pulse 98 96 95 Oximetry 10/21/20 10/21/20 10/21/20 19:49 20:00 20:10 Temperature 98.8 F Pulse Rate 88 85 Pulse Rate [ From Monitor] Respiratory 17 Rate Blood Pressure 112/66 112/66 O2 Sat by Pulse 97 97 Oximetry 10/21/20 20:31 Temperature Pulse Rate 111 H Pulse Rate [ From Monitor] Respiratory 21 Rate Blood Pressure 147/71 O2 Sat by Pulse 90 Oximetry General appearance: Present: no acute distress, well-nourished - EENT Eyes: PERRL, EOM intact ENT: hearing intact, clear oral mucosa Ears: bilateral: normal - Neck Neck: supple, normal ROM - Respiratory Respiratory effort: normal Respiratory: bilateral: CTA - Breasts Breasts: normal - Cardiovascular Heart rate: 78 Rhythm: regular Heart Sounds: Present: S1 & S2. Absent: gallop, rub Extremities: no ischemia, pulses intact, No edema, normal color, Full ROM - Gastrointestinal General gastrointestinal: Present: soft, non-tender, non-distended, normal bowel sounds - Genitourinary Female genitourinary: normal - Integumentary Integumentary: clear, warm, dry - Musculoskeletal Musculoskeletal: 1, strength equal bilaterally - Neurologic Neurologic: moves all extremities - Psychiatric Psychiatric: memory intact, appropriate mood/affect, intact judgment & insight - Labs CBC & Chem 7: 10/30/20 07:53 10/30/20 07:53 Labs: Abnormal lab results 10/21/20 10/21/20 10/21/20 Range/Units 00:09 04:14 04:48 WBC (4.5-11.0) K/mm3 Lymph % (Auto) (13.4-35.0) % [place] % (Auto) (0.0-7.3) % Lymph # (Auto) (1.2-5.4) K/mm3 [place] # (Auto) (0.0-0.8) K/mm3 Seg Neutrophils % (40.0-70.0) % Seg Neutrophils # (1.8-7.7) K/mm3 POC ABG pO2 (83-108) mmHg ABG Sodium 134.6 L (136.0-145.0) mmol/L ABG Potassium 4.8 H (3.40-4.50) mmol/L ABG Glucose 145 H (65-95) mg/dL Potassium 5.1 H (3.6-5.0) mmol/L BUN 36 H (7-17) mg/dL Creatinine 1.3 H D (0.6-1.2) mg/dL Glucose 137 H (65-100) mg/dL POC Glucose 144 H (70-105) mg/dL Arterial Blood Glucose 145 H (65-95) mg/dL Phenytoin (10.0-20.0) ug/mL 10/21/20 10/21/20 10/21/20 Range/Units 05:17 12:43 13:43 WBC (4.5-11.0) K/mm3 Lymph % (Auto) (13.4-35.0) % [place] % (Auto) (0.0-7.3) % Lymph # (Auto) (1.2-5.4) K/mm3 [place] # (Auto) (0.0-0.8) K/mm3 Seg Neutrophils % (40.0-70.0) % Seg Neutrophils # (1.8-7.7) K/mm3 POC ABG pO2 79.6 L (83-108) mmHg ABG Sodium 135.8 L (136.0-145.0) mmol/L ABG Potassium 4.9 H (3.40-4.50) mmol/L ABG Glucose 155 H (65-95) mg/dL Potassium (3.6-5.0) mmol/L BUN (7-17) mg/dL Creatinine (0.6-1.2) mg/dL Glucose (65-100) mg/dL POC Glucose 132 H 133 H (70-105) mg/dL Arterial Blood Glucose 155 H (65-95) mg/dL Phenytoin (10.0-20.0) ug/mL 10/21/20 10/21/20 Range/Units 18:45 18:45 WBC 13.2 H (4.5-11.0) K/mm3 Lymph % (Auto) 7.9 L (13.4-35.0) % [place] % (Auto) 11.1 H (0.0-7.3) % Lymph # (Auto) 1.1 L (1.2-5.4) K/mm3 [place] # (Auto) 1.5 H (0.0-0.8) K/mm3 Seg Neutrophils % 79.8 H (40.0-70.0) % Seg Neutrophils # 10.6 H (1.8-7.7) K/mm3 POC ABG pO2 (83-108) mmHg ABG Sodium (136.0-145.0) mmol/L ABG Potassium (3.40-4.50) mmol/L ABG Glucose (65-95) mg/dL Potassium (3.6-5.0) mmol/L BUN (7-17) mg/dL Creatinine (0.6-1.2) mg/dL Glucose (65-100) mg/dL POC Glucose (70-105) mg/dL Arterial Blood Glucose (65-95) mg/dL Phenytoin 6.7 L (10.0-20.0) ug/mL HEART Score - HEART Score Troponin: Troponin T 0.015 ng/mL (0.00-0.029) 10/14/20 13:36
--- NOTE | 2020-10-21 21:41 | Event Note ---
Date: 10/21/20 Transfer initiated to [place] for continuous EEG monitoring
[2020-10-21] MEDS ORDERED: PHENYTOIN 100 MG/2 ML VIAL IV SCH (22:00)
[2020-10-21] MEDS: POLYETHYLENE GLYCOL 3350 17 GM POWDER PO SCH (22:26)
[2020-10-22] MEDS: SODIUM CHLORIDE 0.9% IV SCH ×3 (02:42→18:20)
[2020-10-22] MEDS: METOCLOPRAMIDE 10 MG/2 ML INJ IV SCH ×4 (02:42→21:23)
[2020-10-22] MEDS: PHENYTOIN IV SCH ×3 (02:42→18:20)
[2020-10-22] MEDS: fentaNYL DRIP Premix 2,000 MCG/100 ML BAG IV SCH ×2 (03:05→10:08)
[2020-10-22] MEDS: LACOSAMIDE 200 MG in SODIUM CHLORIDE 0.9% 100 ML IV SCH ×2 (04:33→16:48)
--- NOTE | 2020-10-22 09:22 | Gastroenterology Consultation ---
History of Present Illness - Reason for Consult Consult date: 10/22/20 distended abdomen - History of Present Illness This is a 65 yo female admitted on 10/14/2020 after found down and unresponsive and noted to have seizure-like activity. Patient intubated and on vent support. Unable to obtain history Surgery was consulted on 10/21/2020 for distended abdomen and concern for sigmoid volvulus. CT a/p on 10/21/2020 showed gaseous distention of right colon, transverse colon, and left colon with cecum at 9 cm max, possible Quail's syndrome or ileus. Per nursing, no BM reported. Patient alert this morning and following simple commands. Medication list reviewed. Past History Past Medical History: hypertension, other (See HPI) Past Surgical History: Other (Brain surgery) Social history: single. denies: smoking, alcohol abuse, prescription drug abuse Family history: hypertension Medications and Allergies Allergies Allergy/AdvReac Type Severity Reaction Status Date / Time Unable to Assess Allergy Unverified 10/14/20 13:38 Home Medications Medication Instructions Recorded Confirmed Last Taken Type Unobtainable 10/14/20 10/14/20 Unknown History Active Meds: Active Medications Acetaminophen (Tylenol) 650 mg FEEDTUBE Q6H PRN PRN Reason: Non Cardiac Pain or Temp>100.5 Last Admin: 10/17/20 17:45 Dose: 650 mg Documented by: Albuterol (Proventil) 2.5 mg IH Q4HRT PRN PRN Reason: Shortness Of Breath Lipase/Protease/Amylase (Pancreaze Dr 10,500 Unit) 1 each FEEDTUBE PRN PRN PRN Reason: For Clogged Feeding Tube Dextrose (D50w (25gm) Syringe) 0 ml IV Q30MIN PRN; Protocol PRN Reason: Hypoglycemia Last Admin: 10/17/20 06:04 Dose: 10 ml Documented by: Docusate Sodium (Colace) 100 mg PO BID [facility] Last Admin: 10/21/20 22:26 Dose: Not Given Documented by: Famotidine (Pepcid) 20 mg PO BID [facility] Last Admin: 10/21/20 22:26 Dose: Not Given Documented by: Fentanyl (Sublimaze) 50 mcg IV Q10MIN PRN PRN Reason: ANALGESIA Last Admin: 10/21/20 19:29 Dose: 50 mcg Documented by: Heparin Sodium (Porcine) (Heparin) 5,000 unit SUB-Q Q12HR [facility] Last Admin: 10/21/20 22:26 Dose: 5,000 unit Documented by: Hydralazine HCl (Apresoline) 10 mg IV Q3H PRN PRN Reason: Blood Pressure Hydrophilic Ointment (Vaseline Lip Therapy) 1 applic TP Q2HR PRN PRN Reason: Dry Lips Fentanyl Citrate (Fentanyl Drip Premix) 2,000 mcg in 100 mls @ 4.99 mls/hr IV TITR [facility]; Protocol Last Titration: 10/22/20 07:16 Dose: 2 mcg/kg/hr, 9.979 mls/hr Documented by: Levetiracetam 1,500 mg/ (Dextrose) 115 mls @ 400 mls/hr IV Q12HR [facility] Last Admin: 10/21/20 22:26 Dose: 400 mls/hr Documented by: Lacosamide 200 mg/ Sodium (Chloride) 120 mls @ 100 mls/hr IV Q12H [facility] Last Admin: 10/22/20 04:33 Dose: 100 mls/hr Documented by: Phenytoin 120 mg/ Sodium (Chloride) 102.4 mls @ 204.8 mls/hr IV Q8H [facility] Last Admin: 10/22/20 02:42 Dose: 204.8 mls/hr Documented by: Lorazepam (Ativan) 2 mg IV Q1H PRN PRN Reason: seizures Last Admin: 10/21/20 20:26 Dose: 2 mg Documented by: Metoclopramide HCl (Reglan) 5 mg IV Q6H [facility] Last Admin: 10/22/20 02:42 Dose: 5 mg Documented by: Multi-Ingred Cream/Lotion/Oil/Oint (Artificial Tears Ophth Oint) 1 applic OU Q4HR PRN PRN Reason: Dry Eye(s) Polyethylene Glycol (Miralax 3350) 17 gm PO QHS [facility] Last Admin: 10/21/20 22:26 Dose: Not Given Documented by: Quetiapine Fumarate (Seroquel) 200 mg PO BID [facility] Last Admin: 10/21/20 22:26 Dose: Not Given Documented by: Simple Syrup (Simple Syrup) 15 ml FEEDTUBE PRN PRN PRN Reason: Hypoglycemia Simple Syrup (Simple Syrup) 30 ml FEEDTUBE PRN PRN PRN Reason: Hypoglycemia Sodium Bicarbonate (Sodium Bicarbonate) 325 mg FEEDTUBE PRN PRN PRN Reason: For Clogged Feeding Tube Sodium Chloride (Sodium Chloride Flush Syringe 10 Ml) 10 ml IV BID [facility] Last Admin: 10/21/20 22:27 Dose: 10 ml Documented by: Sodium Chloride (Sodium Chloride Flush Syringe 10 Ml) 10 ml IV PRN PRN PRN Reason: LINE FLUSH Valsartan (Diovan) 80 mg PO Q12HR [facility] Last Admin: 10/21/20 22:26 Dose: Not Given Documented by: Review of Systems - Review of Systems ROS unobtainable: due to endotracheal tube Exam - Constitutional Vital Signs: Temp Pulse Resp BP Pulse Ox 98.9 F 77 20 89/44 95 10/22/20 08:00 10/22/20 08:00 10/22/20 08:00 10/22/20 08:00 10/22/20 08:00 General appearance: no acute distress - EENT ENT: hearing intact - Respiratory Respiratory effort: normal, other (on the vent) - Cardiovascular Rhythm: regular Heart Sounds: Present: S1 & S2 - Gastrointestinal General gastrointestinal: Present: soft, non-tender, distended, hypoactive bowel sounds - Integumentary Integumentary: Present: clear, warm - Labs CBC & Chem 7: 10/21/20 18:45 10/21/20 04:48 Lab Results: Laboratory Results - last 24 hr 10/21/20 10/21/20 10/21/20 12:43 13:43 18:45 WBC 13.2 H RBC 4.00 Hgb 11.2 Hct 34.5 MCV 86 MCH 28 MCHC 33 RDW 14.9 Plt Count 268 Lymph % (Auto) 7.9 L [place] % (Auto) 11.1 H Eos % (Auto) 0.6 Baso % (Auto) 0.6 Lymph # (Auto) 1.1 L [place] # (Auto) 1.5 H Eos # (Auto) 0.1 Baso # (Auto) 0.1 Seg Neutrophils % 79.8 H Seg Neutrophils # 10.6 H ABG pH 7.393 POC ABG pCO2 34.4 POC ABG pO2 79.6 L POC ABG HCO3 20.5 POC ABG Base Excess -3.7 ABG Hemoglobin 12.6 ABG Sodium 135.8 L ABG Potassium 4.9 H ABG Chloride 105.0 ABG Glucose 155 H FiO2 26.0 POC Glucose 133 H Lactic Acid Arterial Blood Glucose 155 H Arterial Blood Ionized Calcium 5.0 Phenytoin 10/21/20 10/21/20 10/22/20 18:45 18:45 00:34 WBC RBC Hgb Hct MCV MCH MCHC RDW Plt Count Lymph % (Auto) [place] % (Auto) Eos % (Auto) Baso % (Auto) Lymph # (Auto) [place] # (Auto) Eos # (Auto) Baso # (Auto) Seg Neutrophils % Seg Neutrophils # ABG pH POC ABG pCO2 POC ABG pO2 POC ABG HCO3 POC ABG Base Excess ABG Hemoglobin ABG Sodium ABG Potassium ABG Chloride ABG Glucose FiO2 POC Glucose 96 Lactic Acid 1.20 Arterial Blood Glucose Arterial Blood Ionized Calcium Phenytoin 6.7 L 10/22/20 10/22/20 04:48 05:31 WBC RBC Hgb Hct MCV MCH MCHC RDW Plt Count Lymph % (Auto) [place] % (Auto) Eos % (Auto) Baso % (Auto) Lymph # (Auto) [place] # (Auto) Eos # (Auto) Baso # (Auto) Seg Neutrophils % Seg Neutrophils # ABG pH POC ABG pCO2 POC ABG pO2 POC ABG HCO3 POC ABG Base Excess ABG Hemoglobin ABG Sodium ABG Potassium ABG Chloride ABG Glucose FiO2 POC Glucose 124 H Lactic Acid Arterial Blood Glucose Arterial Blood Ionized Calcium Phenytoin 6.6 L - Imaging CT Scan: report reviewed Assessment and Plan 65 yo female admitted on 10/14/2020 after found down and unresponsive and noted to have seizure-like activity. Patient intubated and on vent support. Surgery was consulted on 10/21/2020 for distended abdomen and concern for sigmoid volvulus. CT a/p on 10/21/2020 showed gaseous distention of right colon, transverse colon, and left colon with cecum at 9 cm max, possible Shea's syndrome or ileus. # Distended abdomen - findings suggestives of ileus vs Shea's syndrome. Rec - recommend correcting electrolyte imbalance. - limit narcotics. - dulcolax suppositories to start - surgery on board.
[2020-10-22] MEDS: QUEtiapine 200 MG TAB PO SCH ×2 (10:08→21:22)
[2020-10-22] MEDS: DOCUSATE SODIUM 100 MG/10 ML ORAL LIQD PO SCH ×2 (10:08→21:22)
[2020-10-22] MEDS: FAMOTIDINE 20 MG TAB PO SCH ×2 (10:08→21:22)
[2020-10-22] MEDS: HEPARIN 5,000 UNIT/1 ML VIAL SUB-Q SCH ×2 (10:09→21:23)
[2020-10-22] MEDS: levETIRAcetam 1,500 MG in DEXTROSE 5% IN WATER 100 ML IV SCH ×2 (10:09→21:22)
[2020-10-22] MEDS: VALSARTAN 40 MG TAB PO SCH (10:34)
--- NOTE | 2020-10-22 12:27 | Progress Note ---
Assessment and Plan Acute hypoxemic and hypercapnic respiratory failure. Acute encephalopathy (Toxic / metabolic). Status epilepticus Ileus Hypertensive emergency at presentation, now hypotension. History of a brain aneurysm repair. Obesity. History of hypertension. Leukocytosis. Hypernatremia Hyperglycemia. Discontinue Diovan, start IVF Monitor hemodynamics closely Hypotonic solutions to treat hypernatremia Decompression strategies, bowel rest, strict NPO except medications per Stop Fentanyl, as this can induce narcotic induced ileus, change to Precedex Daily assessment for readiness to wean. Will not extubate for now, until the ileus is resolved to avoid failure of liberation Antibiotics per ID recommendations CBC, BMP CXR and ABG as clinically indicated Keep K at 4, Mag at 2 and Phos at 2.5 to optimize respiratory muscle function - continue daily SATs and SBT assessment as tolerated - continue Vimpat & Keppra (Adjust per neurologist) - continue to wean supplemental oxygen for target O2 sats > 92% - VAP bundle addressed, aspiration precautions, HOB >40 - continue lung protective strategies - continue bronchodilators with pulmonary hygiene per RT - wean per pulmonary driven protocols otherwise - sedation prn for target RASS 0 to -1 - accuchecks with glycemic control per SSI (While critically ill target blood glucose of 140-180 mg/dL; avoid hypoglycemia) - avoid nephrotoxins, renally dose all medications - continue to avoid benzodiazepines, reduce the possibility of delirium - prn analgesia per CPOT score - Maintenance of sleep-wake cycle, avoid delirium - continue to avoid benzodiazepines, reduce the possibility of delirium - Stress ulcer and VTE prophylaxis - PT/OT/ROM exercises - continue mobility protocol, off loading, frequent turning for pressure ulcer prevention - continue other care per attending / other consultants .... Re-evaluate in am & prn CONDITION: CRITICAL PROGNOSIS: GUARDED CODE STATUS: FULL CODE The high probability of a clinically significant, sudden or life-threatening deterioration of the [respiratory, cardiovascular & neurologic] system(s) required my full and direct attention, intervention and personal management. The aggregate critical care time was [36] minutes without overlap. Time includes spent on; [x] Data Review and interpretation [x] Patient assessment and monitoring of vital signs [x] Documentation [x] Medication orders and management Subjective Date of service: 10/22/20 Principal diagnosis: Ac hypoxemic & hypercapnic resp failure; Status epilepticus; HTNsive emerge Interval history: Patient is seen today for: Ac hypoxemic and hypercapnic resp failure; Ac. encephalopathy; Status epilepticus; HTNsive emergency; History of a brain aneurysm repair; Obesity Seen and examined at bedside; 24hour events reviewed; nursing and respiratory care staff consulted; no adverse overnight events reported to me; resting peacefully in bed; tolerated SBT whole day yesterday ,no SBTs today since GI and Surgery evaluation ongoing. Orally intubated- Vent settings AC-VC 20/450/+6/25% Was seen by GI, CT abdomen and pelvis done, decompression flex sig. NPO with NGT to LIS, Rectal tube in for decompression Episode of hypotension, was given Diovan this morning Objective Vital Signs - 12hr 10/22/20 10/22/20 10/22/20 00:30 01:00 01:30 Temperature Pulse Rate 74 75 75 Pulse Rate [ 75 From Monitor] Respiratory 20 20 20 Rate Blood Pressure 103/65 111/67 116/67 O2 Sat by Pulse 96 94 96 Oximetry 10/22/20 10/22/20 10/22/20 02:00 02:31 03:00 Temperature 99.1 F Pulse Rate 75 99 H Pulse Rate [ From Monitor] Respiratory 20 25 H Rate Blood Pressure 113/69 136/110 O2 Sat by Pulse 96 93 Oximetry 10/22/20 10/22/20 10/22/20 03:01 03:30 04:00 Temperature Pulse Rate 109 H 90 84 Pulse Rate [ From Monitor] Respiratory 31 H 20 20 Rate Blood Pressure 174/105 107/61 106/62 O2 Sat by Pulse 93 94 94 Oximetry 10/22/20 10/22/20 10/22/20 04:08 04:30 05:00 Temperature Pulse Rate 85 83 85 Pulse Rate [ 75 From Monitor] Respiratory 20 21 Rate Blood Pressure 106/62 115/65 104/70 O2 Sat by Pulse 95 98 Oximetry 10/22/20 10/22/20 10/22/20 05:30 06:00 06:31 Temperature Pulse Rate 77 78 85 Pulse Rate [ From Monitor] Respiratory 20 20 20 Rate Blood Pressure 102/60 103/66 125/83 O2 Sat by Pulse 95 95 Oximetry 10/22/20 10/22/20 10/22/20 07:00 07:25 07:30 Temperature Pulse Rate 83 83 81 Pulse Rate [ From Monitor] Respiratory 20 20 Rate Blood Pressure 99/49 99/49 100/50 O2 Sat by Pulse 95 96 96 Oximetry 10/22/20 10/22/20 10/22/20 08:00 08:31 09:01 Temperature 98.9 F Pulse Rate 77 98 H 113 H Pulse Rate [ 77 From Monitor] Respiratory 20 31 H 23 Rate Blood Pressure 89/44 111/49 164/97 O2 Sat by Pulse 95 96 91 Oximetry 10/22/20 10/22/20 10/22/20 09:30 10:00 10:30 Temperature Pulse Rate 108 H 92 H 90 Pulse Rate [ From Monitor] Respiratory 20 20 20 Rate Blood Pressure 156/88 111/59 139/78 O2 Sat by Pulse 92 94 96 Oximetry 10/22/20 10/22/20 10/22/20 10:34 11:00 11:30 Temperature Pulse Rate 90 96 H 87 Pulse Rate [ From Monitor] Respiratory 20 20 Rate Blood Pressure 139/78 110/56 81/46 O2 Sat by Pulse 96 94 Oximetry 10/22/20 12:06 Temperature Pulse Rate 84 Pulse Rate [ From Monitor] Respiratory Rate Blood Pressure 83/47 O2 Sat by Pulse 95 Oximetry Constitutional: no acute distress, other (elderly obese female without significant patient / ventilator dyssynchrony) Eyes: non-icteric ENT: oropharynx moist, other (ETT 7.5 22 cm NATIVIDAD) Neck: supple, no lymphadenopathy, no JVD Effort: mildly labored Ascultation: Bilateral: diminished breath sounds, rhonchi (scant) Percussion: Bilateral: not dull Cardiovascular: regular rate and rhythm Gastrointestinal: hypoactive bowel sounds, non-tender, other (Distended, firm) Integumentary: normal Extremities: no cyanosis, no edema, pink and warm, pulses normal Neurologic: non-focal exam (grossly), pupils equal and round, other (sedated but responds appropriately) Psychiatric: other (sedated) CBC and BMP: 10/24/20 10:10 10/24/20 10:10 ABG, PT/INR, D-dimer: ABG ABG pH 7.393 (7.320-7.450) 10/21/20 13:43 POC ABG pCO2 34.4 mmHg (32.0-48.0) 10/21/20 13:43 ABG pCO2 46.2 mm Hg 10/19/20 04:55 POC ABG pO2 79.6 mmHg (83-108) L 10/21/20 13:43 ABG pO2 84.7 mm Hg (80.0-90.0) 10/19/20 04:55 POC ABG HCO3 20.5 10/21/20 13:43 ABG O2 Saturation 96.7 % (95.0-99.0) 10/19/20 04:55 PT/INR, D-dimer PT 14.0 Sec. (12.2-14.9) 10/14/20 13:36 INR 1.07 (0.87-1.13) 10/14/20 13:36 Abnormal lab findings: Abnormal Labs 10/14/20 10/14/20 10/14/20 13:36 13:36 14:22 WBC 14.7 H MCHC 35 H Lymph % (Auto) Caroline % (Auto) Lymph # (Auto) Caroline # (Auto) Seg Neutrophils % Seg Neuts % (Manual) 89.0 H Lymphocytes % (Manual) 4.0 L Seg Neutrophils # Seg Neutrophils # Man 13.1 H Lymphocytes # (Manual) 0.6 L ABG pH 7.298 L POC ABG pCO2 POC ABG pO2 ABG pO2 285.8 H ABG HCO3 ABG O2 Saturation 99.5 H ABG Base Excess -4.1 L ABG Hemoglobin ABG Oxyhemoglobin ABG Sodium ABG Potassium ABG Glucose Oxyhemoglobin Sodium 131 L Potassium Chloride 97.2 L Carbon Dioxide BUN Creatinine Glucose 170 H POC Glucose Arterial Blood Glucose Phenytoin 10/14/20 10/15/20 10/15/20 17:09 03:35 04:33 WBC MCHC 36 H Lymph % (Auto) 9.6 L Caroline % (Auto) 10.1 H Lymph # (Auto) 1.0 L Caroline # (Auto) 1.1 H Seg Neutrophils % 79.8 H Seg Neuts % (Manual) Lymphocytes % (Manual) Seg Neutrophils # 8.4 H Seg Neutrophils # Man Lymphocytes # (Manual) ABG pH 7.536 H POC ABG pCO2 POC ABG pO2 ABG pO2 185.0 H 110.2 H ABG HCO3 ABG O2 Saturation 99.2 H ABG Base Excess ABG Hemoglobin ABG Oxyhemoglobin ABG Sodium ABG Potassium ABG Glucose Oxyhemoglobin Sodium Potassium Chloride Carbon Dioxide BUN Creatinine Glucose POC Glucose Arterial Blood Glucose Phenytoin 10/15/20 10/15/20 10/16/20 04:33 13:12 00:09 WBC MCHC Lymph % (Auto) Caroline % (Auto) Lymph # (Auto) Caroline # (Auto) Seg Neutrophils % Seg Neuts % (Manual) Lymphocytes % (Manual) Seg Neutrophils # Seg Neutrophils # Man Lymphocytes # (Manual) ABG pH 7.297 L POC ABG pCO2 51.0 H POC ABG pO2 56.7 L ABG pO2 ABG HCO3 ABG O2 Saturation ABG Base Excess ABG Hemoglobin ABG Oxyhemoglobin 84.6 L ABG Sodium 134.4 L ABG Potassium ABG Glucose 118 H Oxyhemoglobin Sodium Potassium Chloride Carbon Dioxide BUN Creatinine Glucose 120 H POC Glucose 114 H Arterial Blood Glucose 118 H Phenytoin 10/16/20 10/16/20 10/17/20 05:42 05:46 04:08 WBC MCHC Lymph % (Auto) Caroline % (Auto) Lymph # (Auto) Caroline # (Auto) Seg Neutrophils % Seg Neuts % (Manual) Lymphocytes % (Manual) Seg Neutrophils # Seg Neutrophils # Man Lymphocytes # (Manual) ABG pH POC ABG pCO2 POC ABG pO2 ABG pO2 96.6 H ABG HCO3 ABG O2 Saturation ABG Base Excess ABG Hemoglobin ABG Oxyhemoglobin ABG Sodium 132.6 L ABG Potassium ABG Glucose 112 H Oxyhemoglobin Sodium Potassium Chloride Carbon Dioxide BUN Creatinine Glucose POC Glucose 106 H Arterial Blood Glucose 112 H Phenytoin 10/17/20 10/17/20 10/17/20 09:23 09:23 10:46 WBC 12.3 H MCHC Lymph % (Auto) Caroline % (Auto) Lymph # (Auto) Caroline # (Auto) Seg Neutrophils % Seg Neuts % (Manual) Lymphocytes % (Manual) Seg Neutrophils # Seg Neutrophils # Man Lymphocytes # (Manual) ABG pH POC ABG pCO2 POC ABG pO2 71.6 L ABG pO2 ABG HCO3 ABG O2 Saturation ABG Base Excess ABG Hemoglobin ABG Oxyhemoglobin 92.6 L ABG Sodium 134.8 L ABG Potassium ABG Glucose 105 H Oxyhemoglobin Sodium Potassium Chloride Carbon Dioxide 21 L BUN 19 H Creatinine Glucose POC Glucose Arterial Blood Glucose 105 H Phenytoin 10/17/20 10/18/20 10/18/20 23:43 04:18 08:32 WBC MCHC Lymph % (Auto) Caroline % (Auto) Lymph # (Auto) Caroline # (Auto) Seg Neutrophils % Seg Neuts % (Manual) Lymphocytes % (Manual) Seg Neutrophils # Seg Neutrophils # Man Lymphocytes # (Manual) ABG pH POC ABG pCO2 POC ABG pO2 81.9 L ABG pO2 ABG HCO3 ABG O2 Saturation ABG Base Excess ABG Hemoglobin ABG Oxyhemoglobin ABG Sodium 133.3 L ABG Potassium ABG Glucose 125 H Oxyhemoglobin Sodium Potassium Chloride Carbon Dioxide BUN Creatinine Glucose POC Glucose 118 H Arterial Blood Glucose 125 H Phenytoin 7.1 L 10/18/20 10/18/20 10/18/20 08:32 08:32 12:34 WBC MCHC Lymph % (Auto) 12.4 L Caroline % (Auto) Lymph # (Auto) Caroline # (Auto) Seg Neutrophils % 77.0 H Seg Neuts % (Manual) Lymphocytes % (Manual) Seg Neutrophils # Seg Neutrophils # Man Lymphocytes # (Manual) ABG pH POC ABG pCO2 POC ABG pO2 ABG pO2 ABG HCO3 ABG O2 Saturation ABG Base Excess ABG Hemoglobin ABG Oxyhemoglobin ABG Sodium ABG Potassium ABG Glucose Oxyhemoglobin Sodium 135 L Potassium Chloride Carbon Dioxide BUN 21 H Creatinine Glucose 131 H POC Glucose 121 H Arterial Blood Glucose Phenytoin 10/18/20 10/18/20 10/19/20 18:12 23:47 04:55 WBC MCHC Lymph % (Auto) Caroline % (Auto) Lymph # (Auto) Caroline # (Auto) Seg Neutrophils % Seg Neuts % (Manual) Lymphocytes % (Manual) Seg Neutrophils # Seg Neutrophils # Man Lymphocytes # (Manual) ABG pH POC ABG pCO2 POC ABG pO2 ABG pO2 ABG HCO3 27.1 H ABG O2 Saturation ABG Base Excess ABG Hemoglobin 11.1 L ABG Oxyhemoglobin ABG Sodium ABG Potassium ABG Glucose Oxyhemoglobin 94.9 L Sodium Potassium Chloride Carbon Dioxide BUN Creatinine Glucose POC Glucose 133 H 142 H Arterial Blood Glucose Phenytoin 10/19/20 10/19/20 10/19/20 06:02 07:59 12:35 WBC MCHC Lymph % (Auto) Caroline % (Auto) Lymph # (Auto) Caroline # (Auto) Seg Neutrophils % Seg Neuts % (Manual) Lymphocytes % (Manual) Seg Neutrophils # Seg Neutrophils # Man Lymphocytes # (Manual) ABG pH POC ABG pCO2 POC ABG pO2 ABG pO2 ABG HCO3 ABG O2 Saturation ABG Base Excess ABG Hemoglobin ABG Oxyhemoglobin ABG Sodium ABG Potassium ABG Glucose Oxyhemoglobin Sodium Potassium Chloride Carbon Dioxide BUN Creatinine Glucose 144 H POC Glucose 143 H 132 H Arterial Blood Glucose Phenytoin 10/19/20 10/19/20 10/19/20 16:12 16:31 23:17 WBC MCHC Lymph % (Auto) Caroline % (Auto) Lymph # (Auto) Caroline # (Auto) Seg Neutrophils % Seg Neuts % (Manual) Lymphocytes % (Manual) Seg Neutrophils # Seg Neutrophils # Man Lymphocytes # (Manual) ABG pH 7.461 H POC ABG pCO2 POC ABG pO2 75.8 L ABG pO2 ABG HCO3 ABG O2 Saturation ABG Base Excess ABG Hemoglobin ABG Oxyhemoglobin ABG Sodium 134.0 L ABG Potassium ABG Glucose 156 H Oxyhemoglobin Sodium Potassium Chloride Carbon Dioxide BUN Creatinine Glucose POC Glucose 120 H 128 H Arterial Blood Glucose 156 H Phenytoin 10/20/20 10/20/20 10/20/20 03:25 05:26 12:12 WBC MCHC Lymph % (Auto) Caroline % (Auto) Lymph # (Auto) Caroline # (Auto) Seg Neutrophils % Seg Neuts % (Manual) Lymphocytes % (Manual) Seg Neutrophils # Seg Neutrophils # Man Lymphocytes # (Manual) ABG pH POC ABG pCO2 POC ABG pO2 ABG pO2 ABG HCO3 ABG O2 Saturation ABG Base Excess ABG Hemoglobin ABG Oxyhemoglobin ABG Sodium 134.0 L ABG Potassium ABG Glucose 129 H Oxyhemoglobin Sodium Potassium Chloride Carbon Dioxide BUN Creatinine Glucose POC Glucose 125 H 136 H Arterial Blood Glucose 129 H Phenytoin 10/20/20 10/21/20 10/21/20 17:58 00:09 04:14 WBC MCHC Lymph % (Auto) Caroline % (Auto) Lymph # (Auto) Caroline # (Auto) Seg Neutrophils % Seg Neuts % (Manual) Lymphocytes % (Manual) Seg Neutrophils # Seg Neutrophils # Man Lymphocytes # (Manual) ABG pH POC ABG pCO2 POC ABG pO2 ABG pO2 ABG HCO3 ABG O2 Saturation ABG Base Excess ABG Hemoglobin ABG Oxyhemoglobin ABG Sodium 134.6 L ABG Potassium 4.8 H ABG Glucose 145 H Oxyhemoglobin Sodium Potassium Chloride Carbon Dioxide BUN Creatinine Glucose POC Glucose 148 H 144 H Arterial Blood Glucose 145 H Phenytoin 10/21/20 10/21/20 10/21/20 04:48 05:17 12:43 WBC MCHC Lymph % (Auto) Caroline % (Auto) Lymph # (Auto) Caroline # (Auto) Seg Neutrophils % Seg Neuts % (Manual) Lymphocytes % (Manual) Seg Neutrophils # Seg Neutrophils # Man Lymphocytes # (Manual) ABG pH POC ABG pCO2 POC ABG pO2 ABG pO2 ABG HCO3 ABG O2 Saturation ABG Base Excess ABG Hemoglobin ABG Oxyhemoglobin ABG Sodium ABG Potassium ABG Glucose Oxyhemoglobin Sodium Potassium 5.1 H Chloride Carbon Dioxide BUN 36 H Creatinine 1.3 H D Glucose 137 H POC Glucose 132 H 133 H Arterial Blood Glucose Phenytoin 10/21/20 10/21/20 10/21/20 13:43 18:45 18:45 WBC 13.2 H MCHC Lymph % (Auto) 7.9 L Caroline % (Auto) 11.1 H Lymph # (Auto) 1.1 L Caroline # (Auto) 1.5 H Seg Neutrophils % 79.8 H Seg Neuts % (Manual) Lymphocytes % (Manual) Seg Neutrophils # 10.6 H Seg Neutrophils # Man Lymphocytes # (Manual) ABG pH POC ABG pCO2 POC ABG pO2 79.6 L ABG pO2 ABG HCO3 ABG O2 Saturation ABG Base Excess ABG Hemoglobin ABG Oxyhemoglobin ABG Sodium 135.8 L ABG Potassium 4.9 H ABG Glucose 155 H Oxyhemoglobin Sodium Potassium Chloride Carbon Dioxide BUN Creatinine Glucose POC Glucose Arterial Blood Glucose 155 H Phenytoin 6.7 L 10/22/20 10/22/20 04:48 05:31 WBC MCHC Lymph % (Auto) Caroline % (Auto) Lymph # (Auto) Caroline # (Auto) Seg Neutrophils % Seg Neuts % (Manual) Lymphocytes % (Manual) Seg Neutrophils # Seg Neutrophils # Man Lymphocytes # (Manual) ABG pH POC ABG pCO2 POC ABG pO2 ABG pO2 ABG HCO3 ABG O2 Saturation ABG Base Excess ABG Hemoglobin ABG Oxyhemoglobin ABG Sodium ABG Potassium ABG Glucose Oxyhemoglobin Sodium Potassium Chloride Carbon Dioxide BUN Creatinine Glucose POC Glucose 124 H Arterial Blood Glucose Phenytoin 6.6 L Chest x-ray: image reviewed Allied health notes reviewed: RT
[2020-10-22] MEDS: D5W/0.9% NACL 1,000 ML IV SCH (13:10)
[2020-10-22] MEDS ORDERED: SODIUM CHLORIDE 0.9% 250ML 250 ML IV ONE (13:30)
[2020-10-22] MEDS ORDERED: SODIUM CHLORIDE 0.9% 500 ML 500 ML IV ONE ×2 (18:13→18:45)
[2020-10-22] MEDS: ACETAMINOPHEN 325 MG/10.15 ML ORAL LIQD UNIT DOSE FEEDTUBE PRN (18:56)
--- NOTE | 2020-10-22 19:51 | Progress Note ---
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 Afebrile and stable. no surgical intervention planned at this time. Continue bowel regimen per GI, and rectal tube which may help with decompression. If condition does not deteriorate, abdominal distension improves and NGT to output continues to be minimal may consider slow resumption of tube feeds tomorrow. Subjective Date of service: 10/22/20 Narrative: no acute events overnight. A rectal tube was placed and is being tolerated. This was ordered after CT scan showed no signs of bowel obstruction or volvulus. Colonic gas pattern and distension c/w ileus vs ogilves's syndrome. GI saw patie nt this morning and made recommendations. Objective Vital Signs - 12hr 10/22/20 10/22/20 10/22/20 08:00 08:31 09:01 Temperature 98.9 F Pulse Rate 77 98 H 113 H Pulse Rate [ 77 From Monitor] Respiratory 20 31 H 23 Rate Blood Pressure 89/44 111/49 164/97 O2 Sat by Pulse 95 96 91 Oximetry 10/22/20 10/22/20 10/22/20 09:30 10:00 10:30 Temperature Pulse Rate 108 H 92 H 90 Pulse Rate [ From Monitor] Respiratory 20 20 20 Rate Blood Pressure 156/88 111/59 139/78 O2 Sat by Pulse 92 94 96 Oximetry 10/22/20 10/22/20 10/22/20 10:34 11:00 11:30 Temperature Pulse Rate 90 96 H 87 Pulse Rate [ From Monitor] Respiratory 20 20 Rate Blood Pressure 139/78 110/56 81/46 O2 Sat by Pulse 96 94 Oximetry 10/22/20 10/22/20 10/22/20 12:00 12:06 16:00 Temperature 98.8 F 100.6 F H Pulse Rate 84 Pulse Rate [ From Monitor] Respiratory Rate Blood Pressure 83/47 O2 Sat by Pulse 95 Oximetry 10/22/20 16:16 Temperature Pulse Rate 99 H Pulse Rate [ From Monitor] Respiratory Rate Blood Pressure 106/53 O2 Sat by Pulse 95 Oximetry - General physical appearance well developed, no distress, no pain, obese - Respiratory normal expansion, normal respiratory effort - Abdomen soft, not tender, distended, not guarding, not rigid, not wound - Labs 10/21/20 18:45 10/21/20 04:48 - Imaging CT scan - abdomen: report reviewed, image reviewed CT scan - pelvis: report reviewed, image reviewed
[2020-10-22] MEDS: POLYETHYLENE GLYCOL 3350 17 GM POWDER PO SCH (21:22)
[2020-10-22] MEDS ORDERED: VALSARTAN 40 MG TAB PO SCH (22:00)
--- NOTE | 2020-10-22 22:25 | Progress Note ---
Assessment and Plan The high probability of a clinically significant, sudden or life threatening deterioration of the [cardiac, pulmonary, renal] system(s) required my full and direct attention, intervention and personal management. The aggregate critical care time was [40] minutes. This time is in addition to time spent performing reported procedures but includes the following: [x] Data Review and interpretation [x] Patient assessment and monitoring of vital signs [x] Documentation [x] Medication orders and management (1) Acute respiratory failure Current Visit: Yes Status: Acute Qualifiers: Respiratory failure complication: hypoxia Qualified Code(s): J96.01 - Acute respiratory failure with hypoxia Plan to address problem: Patient intubated and on ventilatory support, daily spontaneous breathing trials, sedation holiday, wean vent as tolerated, critical care team consulted. (2) Status epilepticus Current Visit: Yes Status: Acute Plan to address problem: On IV Keppra and Vimpat IV and phenytoin no seizures (3) Hypertensive emergency Current Visit: Yes Status: Acute Plan to address problem: Monitor blood pressure every shift, continue IV hydralazine, (4) Acute encephalopathy Current Visit: Yes Status: Acute Plan to address problem: CT head, neuro check, seizure precautions, aspiration precautions, (5) Leukocytosis Current Visit: Yes Status: Acute Plan to address problem: Chest x-ray, CBC, urinalysis, empiric IV antibiotic therapy x1 dose, repeat CBC in a.m. (6) DVT prophylaxis Current Visit: Yes Status: Acute Plan to address problem: SCD to bilateral lower extremities while in bed, prophylactic anticoagulation (7) Advance care planning Current Visit: Yes Status: Acute Plan to address problem: Disease education conducted, patient is full code, prognosis discussed, +30 minutes. Subjective Date of service: 10/22/20 Principal diagnosis: Ac hypoxemic & hypercapnic resp failure; Status epilepticus; HTNsive emerge Interval history: 65 YO Female with Obesity, HTN, presents to ED for evaluation. Patient is intubated and on ventilatory support at the time of my evaluation and is unable to provide history. Patient history is taken from EMS staff, ED staff. As per staff the patient was found down and unresponsive by her neighbor. Patient neighbor describe seizure-like activity. EMS was notified and upon arrival the patient was found to be in distress and actively seizing. Patient treated with 2 mg of Ativan which terminated the seizures. The patient was subsequently transported to [facility] for further evaluation and care of the aforementioned symptoms. Patient was seen and evaluated in the emergency department. All lab and imaging studies reviewed. Patient found to have symptoms consistent with status epilepticus which was evidenced by recurrent seizures in the emergency department with concomitant decrease in pulse oximetry to 84% on room air. The patient was also found to have hypertensive emergency with a blood pressure of 223/143. The patient was deemed unable to protect her airway and was intubated for airway protection. Patient also found to have acute encephalopathy. Patient admitted to ICU due to increased risk of decompensation. Critical care team consulted in ED. No prior admission for review. No medication listed at time of admission for reconciliation. Advanced care planning conducted in ED. No seizures Weaning in progress Objective - Exam Narrative Exam: Intubated - Constitutional Vitals: Vital Signs - 12hr 10/22/20 10/22/20 10/22/20 10:30 10:34 11:00 Temperature Pulse Rate 90 90 96 H Pulse Rate [ From Monitor] Respiratory 20 20 Rate Blood Pressure 139/78 139/78 110/56 O2 Sat by Pulse 96 96 Oximetry 10/22/20 10/22/20 10/22/20 11:30 12:00 12:06 Temperature 98.8 F Pulse Rate 87 86 84 Pulse Rate [ 86 From Monitor] Respiratory 20 20 Rate Blood Pressure 81/46 81/46 83/47 O2 Sat by Pulse 94 96 95 Oximetry 10/22/20 10/22/20 10/22/20 12:30 13:01 13:31 Temperature Pulse Rate 83 87 85 Pulse Rate [ From Monitor] Respiratory 20 21 19 Rate Blood Pressure 79/47 82/48 96/78 O2 Sat by Pulse 95 97 Oximetry 10/22/20 10/22/20 10/22/20 14:00 14:30 15:01 Temperature Pulse Rate 77 75 91 H Pulse Rate [ From Monitor] Respiratory 20 20 22 Rate Blood Pressure 87/47 81/46 81/46 O2 Sat by Pulse 93 95 Oximetry 10/22/20 10/22/20 10/22/20 15:31 16:00 16:16 Temperature 100.6 F H Pulse Rate 108 H 91 H 99 H Pulse Rate [ 91 H From Monitor] Respiratory 32 H 20 Rate Blood Pressure 104/44 106/53 106/53 O2 Sat by Pulse 94 95 95 Oximetry 10/22/20 10/22/2020 16:31 17:01 17:30 Temperature Pulse Rate 101 H 84 78 Pulse Rate [ From Monitor] Respiratory 22 20 20 Rate Blood Pressure 156/134 79/47 71/41 O2 Sat by Pulse 93 95 94 Oximetry 10/22/20 10/22/20 10/22/20 18:00 18:30 19:01 Temperature Pulse Rate 73 72 81 Pulse Rate [ From Monitor] Respiratory 20 20 21 Rate Blood Pressure 74/40 76/43 83/49 O2 Sat by Pulse 95 94 96 Oximetry 10/22/20 10/22/20 10/22/20 19:30 20:00 20:02 Temperature 97.4 F L Pulse Rate 84 91 H 91 H Pulse Rate [ From Monitor] Respiratory 21 20 Rate Blood Pressure 95/51 95/56 O2 Sat by Pulse 96 95 Oximetry 10/22/20 10/22/20 10/22/20 20:10 20:30 21:00 Temperature Pulse Rate 85 81 86 Pulse Rate [ From Monitor] Respiratory 19 20 Rate Blood Pressure 95/56 76/42 83/53 O2 Sat by Pulse 96 95 96 Oximetry General appearance: Present: no acute distress, well-nourished - EENT Eyes: PERRL, EOM intact ENT: hearing intact, clear oral mucosa Ears: bilateral: normal - Neck Neck: supple, normal ROM - Respiratory Respiratory effort: normal Respiratory: bilateral: CTA - Breasts Breasts: normal - Cardiovascular Heart rate: 78 Rhythm: regular Heart Sounds: Present: S1 & S2. Absent: gallop, rub Extremities: pulses intact, No edema, normal color, Full ROM - Gastrointestinal General gastrointestinal: Present: soft, non-tender, distended, normal bowel sounds, hypoactive bowel sounds - Genitourinary Female genitourinary: normal - Integumentary Integumentary: clear, warm, dry - Musculoskeletal Musculoskeletal: 1, strength equal bilaterally - Neurologic Neurologic: moves all extremities, other (Intubated) - Psychiatric Psychiatric: other (Patient intubated) - Allied health notes Allied health notes reviewed: nursing, case management - Labs CBC & Chem 7: 10/30/20 07:53 10/30/20 07:53 Labs: Abnormal lab results 10/22/20 10/22/20 10/22/20 Range/Units 04:48 05:31 12:30 POC Glucose 124 H 124 H (70-105) mg/dL Phenytoin 6.6 L (10.0-20.0) ug/mL 10/22/20 Range/Units 18:04 POC Glucose 130 H (70-105) mg/dL Phenytoin (10.0-20.0) ug/mL HEART Score - HEART Score Troponin: Troponin T 0.015 ng/mL (0.00-0.029) 10/14/20 13:36
[2020-10-23 00:56] LABS: Calcium 8.3 mg/dL (8.4-10.2)
[2020-10-23 01:24] LABS: Hematocrit TNR % (30.3-42.9); Hemoglobin TNR gm/dl (10.1-14.3); Mean Corpuscular HGB Conc TNR % (30-34); Mean Corpuscular Volume TNR fl (79-97); Mean Platelet Volume TNR fl (6-12); Platelet Count TNR K/mm3 (140-440); Red Blood Count TNR M/mm3 (3.65-5.03); Red Cell Distribution Width TNR % (13.2-15.2)
[2020-10-23 01:25] LABS: Basophils % (Auto) TNR % (0.0-1.8); Eosinophils # (Auto) TNR K/mm3 (0.0-0.4); Eosinophils % (Auto) TNR % (0.0-4.3); Lymphocytes # (Auto) TNR K/mm3 (1.2-5.4); Lymphocytes % (Auto) TNR % (13.4-35.0); Monocytes # (Auto) TNR K/mm3 (0.0-0.8); Monocytes % (Auto) TNR % (0.0-7.3)
[2020-10-23 01:26] LABS: Basophils # (Auto) TNR K/mm3 (0.0-0.1)
[2020-10-23] MEDS: SODIUM CHLORIDE 0.9% IV SCH ×3 (02:07→18:16)
[2020-10-23] MEDS: PHENYTOIN IV SCH ×3 (02:07→18:16)
[2020-10-23] MEDS: METOCLOPRAMIDE 10 MG/2 ML INJ IV SCH ×4 (02:07→21:02)
[2020-10-23] MEDS: D5W/0.9% NACL 1,000 ML IV SCH ×2 (02:17→15:57)
[2020-10-23] MEDS: LACOSAMIDE 200 MG in SODIUM CHLORIDE 0.9% 100 ML IV SCH ×2 (04:35→15:58)
[2020-10-23] MEDS: fentaNYL DRIP Premix 2,000 MCG/100 ML BAG IV SCH (04:39)
[2020-10-23] MEDS: LORazepam 2 MG/ML VIAL IV PRN ×4 (05:05→20:52)
[2020-10-23 08:23] LABS: Basophils % (Auto) 0.5 % (0.0-1.8); Eosinophils # (Auto) 0.2 K/mm3 (0.0-0.4); Eosinophils % (Auto) 2.1 % (0.0-4.3); Hematocrit 29.8 % (30.3-42.9); Hemoglobin 9.7 gm/dl (10.1-14.3); Lymphocytes # (Auto) 0.8 K/mm3 (1.2-5.4); Lymphocytes % (Auto) 9.9 % (13.4-35.0); Mean Corpuscular HGB Conc 33 % (30-34); Mean Corpuscular Volume 87 fl (79-97); Monocytes # (Auto) 1.2 K/mm3 (0.0-0.8); Platelet Count 198 K/mm3 (140-440); Red Blood Count 3.41 M/mm3 (3.65-5.03); Red Cell Distribution Width 14.7 % (13.2-15.2)
[2020-10-23] MEDS: QUEtiapine 200 MG TAB PO SCH ×2 (09:01→21:05)
[2020-10-23] MEDS: HEPARIN 5,000 UNIT/1 ML VIAL SUB-Q SCH ×2 (09:01→21:05)
[2020-10-23] MEDS: FAMOTIDINE 20 MG TAB PO SCH ×2 (09:01→21:05)
[2020-10-23] MEDS: DOCUSATE SODIUM 100 MG/10 ML ORAL LIQD PO SCH ×2 (09:01→21:05)
[2020-10-23] MEDS: levETIRAcetam 1,500 MG in DEXTROSE 5% IN WATER 100 ML IV SCH ×2 (10:59→21:07)
--- NOTE | 2020-10-23 11:08 | Gastroenterology Progress Note ---
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 Mainstay of therapy is avoiding opiates and correcting electrolyte abnormalities I am ordering repeat abdominal imaging, will make further recommendations regarding medical management based upon results May use G-tube for medication but do not recommend giving patient feeds - Patient Problems (1) Shea syndrome Current Visit: Yes Status: Acute Subjective Date of service: 10/23/20 Principal diagnosis: Ac hypoxemic & hypercapnic resp failure; Status epilepticus; HTNsive emerge Interval history: Patient is intubated and sedated unable to talk with me Spoke with nurse she reports patient passing flatus but no stool Patient's [id number], Shavonne Gómez (who resides in [place]) is the emergency contact for the family per Objective - Constitutional Vitals: Temp Pulse Resp BP Pulse Ox 98.8 F 81 20 113/67 96 10/23/20 08:00 10/23/20 09:30 10/23/20 09:30 10/23/20 09:30 10/23/20 09:30 General appearance: other (Intubated) - Neck Neck: supple - Respiratory Respiratory effort: other (On pulmonary support) - Cardiovascular Rhythm: regular - Gastrointestinal General gastrointestinal: Present: other (Decreased bowel sounds distended but not hard) - Integumentary Integumentary: Present: dry - Neurologic Neurological: other (Not responding) - Labs CBC & Chem 7: 10/23/20 08:07 10/23/20 00:16 Labs: Laboratory Results - last 24 hr 10/22/20 10/22/20 10/23/20 12:30 18:04 00:09 WBC RBC Hgb Hct MCV MCH MCHC RDW Plt Count Lymph % (Auto) [place] % (Auto) Eos % (Auto) Baso % (Auto) Lymph # (Auto) [place] # (Auto) Eos # (Auto) Baso # (Auto) Add Manual Diff Seg Neutrophils % Seg Neutrophils # Sodium Potassium Chloride Carbon Dioxide Anion Gap BUN Creatinine Estimated GFR BUN/Creatinine Ratio Glucose POC Glucose 124 H 130 H 149 H Calcium 10/23/20 10/23/20 10/23/20 00:16 00:16 05:33 WBC TNR RBC TNR Hgb TNR Hct TNR MCV TNR MCH TNR MCHC TNR RDW TNR Plt Count TNR Lymph % (Auto) TNR [place] % (Auto) TNR Eos % (Auto) TNR Baso % (Auto) TNR Lymph # (Auto) TNR [place] # (Auto) TNR Eos # (Auto) TNR Baso # (Auto) TNR Add Manual Diff TNR Seg Neutrophils % TNR Seg Neutrophils # TNR Sodium 140 Potassium 4.9 Chloride 109.6 H Carbon Dioxide 16 L Anion Gap 19 BUN 68 H Creatinine 2.3 H D Estimated GFR 21 BUN/Creatinine Ratio 30 Glucose 148 H POC Glucose 135 H Calcium 8.3 L 10/23/20 08:07 WBC 8.3 RBC 3.41 L Hgb 9.7 L Hct 29.8 L MCV 87 MCH 28 MCHC 33 RDW 14.7 Plt Count 198 Lymph % (Auto) 9.9 L [place] % (Auto) 15.0 H Eos % (Auto) 2.1 Baso % (Auto) 0.5 Lymph # (Auto) 0.8 L [place] # (Auto) 1.2 H Eos # (Auto) 0.2 Baso # (Auto) 0.0 Add Manual Diff Seg Neutrophils % 72.5 H Seg Neutrophils # 6.0 Sodium Potassium Chloride Carbon Dioxide Anion Gap BUN Creatinine Estimated GFR BUN/Creatinine Ratio Glucose POC Glucose Calcium
--- NOTE | 2020-10-23 13:31 | Progress Note ---
Assessment and Plan Acute hypoxemic and hypercapnic respiratory failure. Acute encephalopathy (Toxic / metabolic). Status epilepticus Ileus, [place] syndrome Hypertensive emergency at presentation, now hypotension. History of a brain aneurysm repair. Obesity. History of hypertension. Leukocytosis-resolved Hypernatremia Hyperglycemia. Continue to monitor hemodynamics closely Continue hypotonic solutions and free water flushes to treat hypernatremia Decompression strategies, bowel rest, strict NPO except medications per GI Daily assessment for readiness to wean-SAT and SBT today Will not extubate for now, until the ileus is resolved to avoid failure of liberation CBC, BMP in am CXR and ABG as clinically indicated Keep K at 4, Mag at 2 and Phos at 2.5 to optimize respiratory muscle function - continue daily SATs and SBT assessment as tolerated - continue Vimpat & Keppra (Adjust per neurologist) - continue to wean supplemental oxygen for target O2 sats > 92% - VAP bundle addressed, aspiration precautions, HOB >40 - continue lung protective strategies - continue bronchodilators with pulmonary hygiene per RT - wean per pulmonary driven protocols otherwise - sedation prn for target RASS 0 to -1 - accuchecks with glycemic control per SSI (While critically ill target blood glucose of 140-180 mg/dL; avoid hypoglycemia) - avoid nephrotoxins, renally dose all medications - continue to avoid benzodiazepines, reduce the possibility of delirium - prn analgesia per CPOT score - Maintenance of sleep-wake cycle, avoid delirium - continue to avoid benzodiazepines, reduce the possibility of delirium - Stress ulcer and VTE prophylaxis - PT/OT/ROM exercises - continue mobility protocol, off loading, frequent turning for pressure ulcer prevention - continue other care per attending / other consultants CONDITION: CRITICAL PROGNOSIS: GUARDED CODE STATUS: FULL CODE The high probability of a clinically significant, sudden or life-threatening deterioration of the [respiratory, cardiovascular & neurologic] system(s) required my full and direct attention, intervention and personal management. The aggregate critical care time was [32] minutes without overlap. Time includes spent on; [x] Data Review and interpretation [x] Patient assessment and monitoring of vital signs [x] Documentation [x] Medication orders and management Subjective Date of service: 10/23/20 Principal diagnosis: Ac hypoxemic & hypercapnic resp failure; Status epilepticus; HTNsive emerge Interval history: Patient is seen today for: Ac hypoxemic and hypercapnic resp failure; Ac. encephalopathy; Status epilepticus; HTNsive emergency; History of a brain aneurysm repair; Obesity Seen and examined at bedside; 24hour events reviewed; nursing and respiratory care staff consulted; no adverse overnight events reported to me; resting peacefully in bed; tolerated SBT whole day yesterday ,Orally intubated- Vent settings AC-VC 20/450/+6/25%. NPO except medications NPO with NGT to LIS, Rectal tube in for decompression. Had a bowel movement this afternoon per RN. Blood pressure has improved. Abdomen is softer. No fevers Objective Vital Signs - 12hr 10/23/20 10/23/20 10/23/20 01:45 02:00 02:15 Temperature Pulse Rate 77 76 76 Pulse Rate [ From Monitor] Respiratory 20 20 20 Rate Blood Pressure 84/47 91/48 93/47 O2 Sat by Pulse 96 96 97 Oximetry 10/23/20 10/23/20 10/23/20 02:30 02:45 03:00 Temperature Pulse Rate 73 73 76 Pulse Rate [ From Monitor] Respiratory 20 20 20 Rate Blood Pressure 90/50 95/48 95/50 O2 Sat by Pulse 97 97 97 Oximetry 10/23/20 10/23/20 10/23/20 03:30 03:56 04:00 Temperature 97.8 F Pulse Rate 75 98 H Pulse Rate [ From Monitor] Respiratory 20 Rate Blood Pressure 103/52 O2 Sat by Pulse 97 Oximetry 10/23/20 10/23/20 10/23/20 04:01 04:10 04:31 Temperature Pulse Rate 96 H 101 H 92 H Pulse Rate [ From Monitor] Respiratory 24 20 Rate Blood Pressure 95/59 114/74 122/62 O2 Sat by Pulse 96 96 97 Oximetry 10/23/20 10/23/20 10/23/20 05:01 05:30 06:00 Temperature Pulse Rate 111 H 88 82 Pulse Rate [ From Monitor] Respiratory 26 H 20 20 Rate Blood Pressure 174/95 98/56 87/45 O2 Sat by Pulse 94 96 96 Oximetry 10/23/20 10/23/20 10/23/20 06:30 07:00 07:30 Temperature Pulse Rate 80 80 81 Pulse Rate [ From Monitor] Respiratory 20 20 20 Rate Blood Pressure 95/52 88/51 99/57 O2 Sat by Pulse 96 96 97 Oximetry 10/23/20 10/23/20 10/23/20 08:00 08:30 08:31 Temperature 98.8 F Pulse Rate 77 78 79 Pulse Rate [ 78 From Monitor] Respiratory 20 20 Rate Blood Pressure 101/56 103/53 103/53 O2 Sat by Pulse 97 97 97 Oximetry 10/23/20 10/23/20 10/23/20 09:01 09:30 10:00 Temperature Pulse Rate 90 81 79 Pulse Rate [ From Monitor] Respiratory 25 H 20 19 Rate Blood Pressure 96/58 113/67 86/47 O2 Sat by Pulse 97 96 95 Oximetry 10/23/20 10/23/20 10/23/20 10:30 11:00 11:30 Temperature Pulse Rate 85 85 83 Pulse Rate [ From Monitor] Respiratory 19 20 19 Rate Blood Pressure 92/51 95/57 95/52 O2 Sat by Pulse 96 96 97 Oximetry 10/23/20 10/23/20 11:45 12:00 Temperature 98.5 F Pulse Rate 81 81 Pulse Rate [ 81 From Monitor] Respiratory 19 Rate Blood Pressure 98/51 90/49 O2 Sat by Pulse 97 97 Oximetry Constitutional: no acute distress, other (elderly obese female without significant patient / ventilator dyssynchrony) Eyes: non-icteric ENT: oropharynx moist, other (ETT 24 cm NATIVIDAD) Neck: supple, no lymphadenopathy, no JVD Effort: mildly labored Ascultation: Bilateral: diminished breath sounds, rhonchi (scant) Percussion: Bilateral: not dull Cardiovascular: regular rate and rhythm Gastrointestinal: normoactive bowel sounds, hypoactive bowel sounds, soft, non- tender, other (Distended) Integumentary: normal Extremities: no cyanosis, no edema, pink and warm, pulses normal Neurologic: non-focal exam (grossly), pupils equal and round, other (sedated but responds appropriately) Psychiatric: other (sedated) CBC and BMP: 10/24/20 10:10 10/24/20 10:10 ABG, PT/INR, D-dimer: ABG ABG pH 7.393 (7.320-7.450) 10/21/20 13:43 POC ABG pCO2 34.4 mmHg (32.0-48.0) 10/21/20 13:43 ABG pCO2 46.2 mm Hg 10/19/20 04:55 POC ABG pO2 79.6 mmHg (83-108) L 10/21/20 13:43 ABG pO2 84.7 mm Hg (80.0-90.0) 10/19/20 04:55 POC ABG HCO3 20.5 10/21/20 13:43 ABG O2 Saturation 96.7 % (95.0-99.0) 10/19/20 04:55 PT/INR, D-dimer PT 14.0 Sec. (12.2-14.9) 10/14/20 13:36 INR 1.07 (0.87-1.13) 10/14/20 13:36 Abnormal lab findings: Abnormal Labs 10/14/20 10/14/20 10/14/20 13:36 13:36 14:22 WBC 14.7 H RBC Hgb Hct MCHC 35 H Lymph % (Auto) [place] % (Auto) Lymph # (Auto) [place] # (Auto) Seg Neutrophils % Seg Neuts % (Manual) 89.0 H Lymphocytes % (Manual) 4.0 L Seg Neutrophils # Seg Neutrophils # Man 13.1 H Lymphocytes # (Manual) 0.6 L ABG pH 7.298 L POC ABG pCO2 POC ABG pO2 ABG pO2 285.8 H ABG HCO3 ABG O2 Saturation 99.5 H ABG Base Excess -4.1 L ABG Hemoglobin ABG Oxyhemoglobin ABG Sodium ABG Potassium ABG Glucose Oxyhemoglobin Sodium 131 L Potassium Chloride 97.2 L Carbon Dioxide BUN Creatinine Glucose 170 H POC Glucose Calcium Arterial Blood Glucose Phenytoin 10/14/20 10/15/20 10/15/20 17:09 03:35 04:33 WBC RBC Hgb Hct MCHC 36 H Lymph % (Auto) 9.6 L [place] % (Auto) 10.1 H Lymph # (Auto) 1.0 L [place] # (Auto) 1.1 H Seg Neutrophils % 79.8 H Seg Neuts % (Manual) Lymphocytes % (Manual) Seg Neutrophils # 8.4 H Seg Neutrophils # Man Lymphocytes # (Manual) ABG pH 7.536 H POC ABG pCO2 POC ABG pO2 ABG pO2 185.0 H 110.2 H ABG HCO3 ABG O2 Saturation 99.2 H ABG Base Excess ABG Hemoglobin ABG Oxyhemoglobin ABG Sodium ABG Potassium ABG Glucose Oxyhemoglobin Sodium Potassium Chloride Carbon Dioxide BUN Creatinine Glucose POC Glucose Calcium Arterial Blood Glucose Phenytoin 10/15/20 10/15/20 10/16/20 04:33 13:12 00:09 WBC RBC Hgb Hct MCHC Lymph % (Auto) [place] % (Auto) Lymph # (Auto) [place] # (Auto) Seg Neutrophils % Seg Neuts % (Manual) Lymphocytes % (Manual) Seg Neutrophils # Seg Neutrophils # Man Lymphocytes # (Manual) ABG pH 7.297 L POC ABG pCO2 51.0 H POC ABG pO2 56.7 L ABG pO2 ABG HCO3 ABG O2 Saturation ABG Base Excess ABG Hemoglobin ABG Oxyhemoglobin 84.6 L ABG Sodium 134.4 L ABG Potassium ABG Glucose 118 H Oxyhemoglobin Sodium Potassium Chloride Carbon Dioxide BUN Creatinine Glucose 120 H POC Glucose 114 H Calcium Arterial Blood Glucose 118 H Phenytoin 10/16/20 10/16/20 10/17/20 05:42 05:46 04:08 WBC RBC Hgb Hct MCHC Lymph % (Auto) [place] % (Auto) Lymph # (Auto) [place] # (Auto) Seg Neutrophils % Seg Neuts % (Manual) Lymphocytes % (Manual) Seg Neutrophils # Seg Neutrophils # Man Lymphocytes # (Manual) ABG pH POC ABG pCO2 POC ABG pO2 ABG pO2 96.6 H ABG HCO3 ABG O2 Saturation ABG Base Excess ABG Hemoglobin ABG Oxyhemoglobin ABG Sodium 132.6 L ABG Potassium ABG Glucose 112 H Oxyhemoglobin Sodium Potassium Chloride Carbon Dioxide BUN Creatinine Glucose POC Glucose 106 H Calcium Arterial Blood Glucose 112 H Phenytoin 10/17/20 10/17/20 10/17/20 09:23 09:23 10:46 WBC 12.3 H RBC Hgb Hct MCHC Lymph % (Auto) [place] % (Auto) Lymph # (Auto) [place] # (Auto) Seg Neutrophils % Seg Neuts % (Manual) Lymphocytes % (Manual) Seg Neutrophils # Seg Neutrophils # Man Lymphocytes # (Manual) ABG pH POC ABG pCO2 POC ABG pO2 71.6 L ABG pO2 ABG HCO3 ABG O2 Saturation ABG Base Excess ABG Hemoglobin ABG Oxyhemoglobin 92.6 L ABG Sodium 134.8 L ABG Potassium ABG Glucose 105 H Oxyhemoglobin Sodium Potassium Chloride Carbon Dioxide 21 L BUN 19 H Creatinine Glucose POC Glucose Calcium Arterial Blood Glucose 105 H Phenytoin 10/17/20 10/18/20 10/18/20 23:43 04:18 08:32 WBC RBC Hgb Hct MCHC Lymph % (Auto) [place] % (Auto) Lymph # (Auto) [place] # (Auto) Seg Neutrophils % Seg Neuts % (Manual) Lymphocytes % (Manual) Seg Neutrophils # Seg Neutrophils # Man Lymphocytes # (Manual) ABG pH POC ABG pCO2 POC ABG pO2 81.9 L ABG pO2 ABG HCO3 ABG O2 Saturation ABG Base Excess ABG Hemoglobin ABG Oxyhemoglobin ABG Sodium 133.3 L ABG Potassium ABG Glucose 125 H Oxyhemoglobin Sodium Potassium Chloride Carbon Dioxide BUN Creatinine Glucose POC Glucose 118 H Calcium Arterial Blood Glucose 125 H Phenytoin 7.1 L 10/18/20 10/18/20 10/18/20 08:32 08:32 12:34 WBC RBC Hgb Hct MCHC Lymph % (Auto) 12.4 L [place] % (Auto) Lymph # (Auto) [place] # (Auto) Seg Neutrophils % 77.0 H Seg Neuts % (Manual) Lymphocytes % (Manual) Seg Neutrophils # Seg Neutrophils # Man Lymphocytes # (Manual) ABG pH POC ABG pCO2 POC ABG pO2 ABG pO2 ABG HCO3 ABG O2 Saturation ABG Base Excess ABG Hemoglobin ABG Oxyhemoglobin ABG Sodium ABG Potassium ABG Glucose Oxyhemoglobin Sodium 135 L Potassium Chloride Carbon Dioxide BUN 21 H Creatinine Glucose 131 H POC Glucose 121 H Calcium Arterial Blood Glucose Phenytoin 10/18/20 10/18/20 10/19/20 18:12 23:47 04:55 WBC RBC Hgb Hct MCHC Lymph % (Auto) [place] % (Auto) Lymph # (Auto) [place] # (Auto) Seg Neutrophils % Seg Neuts % (Manual) Lymphocytes % (Manual) Seg Neutrophils # Seg Neutrophils # Man Lymphocytes # (Manual) ABG pH POC ABG pCO2 POC ABG pO2 ABG pO2 ABG HCO3 27.1 H ABG O2 Saturation ABG Base Excess ABG Hemoglobin 11.1 L ABG Oxyhemoglobin ABG Sodium ABG Potassium ABG Glucose Oxyhemoglobin 94.9 L Sodium Potassium Chloride Carbon Dioxide BUN Creatinine Glucose POC Glucose 133 H 142 H Calcium Arterial Blood Glucose Phenytoin 10/19/20 10/19/20 10/19/20 06:02 07:59 12:35 WBC RBC Hgb Hct MCHC Lymph % (Auto) [place] % (Auto) Lymph # (Auto) [place] # (Auto) Seg Neutrophils % Seg Neuts % (Manual) Lymphocytes % (Manual) Seg Neutrophils # Seg Neutrophils # Man Lymphocytes # (Manual) ABG pH POC ABG pCO2 POC ABG pO2 ABG pO2 ABG HCO3 ABG O2 Saturation ABG Base Excess ABG Hemoglobin ABG Oxyhemoglobin ABG Sodium ABG Potassium ABG Glucose Oxyhemoglobin Sodium Potassium Chloride Carbon Dioxide BUN Creatinine Glucose 144 H POC Glucose 143 H 132 H Calcium Arterial Blood Glucose Phenytoin 10/19/20 10/19/20 10/19/20 16:12 16:31 23:17 WBC RBC Hgb Hct MCHC Lymph % (Auto) [place] % (Auto) Lymph # (Auto) [place] # (Auto) Seg Neutrophils % Seg Neuts % (Manual) Lymphocytes % (Manual) Seg Neutrophils # Seg Neutrophils # Man Lymphocytes # (Manual) ABG pH 7.461 H POC ABG pCO2 POC ABG pO2 75.8 L ABG pO2 ABG HCO3 ABG O2 Saturation ABG Base Excess ABG Hemoglobin ABG Oxyhemoglobin ABG Sodium 134.0 L ABG Potassium ABG Glucose 156 H Oxyhemoglobin Sodium Potassium Chloride Carbon Dioxide BUN Creatinine Glucose POC Glucose 120 H 128 H Calcium Arterial Blood Glucose 156 H Phenytoin 10/20/20 10/20/20 10/20/20 03:25 05:26 12:12 WBC RBC Hgb Hct MCHC Lymph % (Auto) [place] % (Auto) Lymph # (Auto) [place] # (Auto) Seg Neutrophils % Seg Neuts % (Manual) Lymphocytes % (Manual) Seg Neutrophils # Seg Neutrophils # Man Lymphocytes # (Manual) ABG pH POC ABG pCO2 POC ABG pO2 ABG pO2 ABG HCO3 ABG O2 Saturation ABG Base Excess ABG Hemoglobin ABG Oxyhemoglobin ABG Sodium 134.0 L ABG Potassium ABG Glucose 129 H Oxyhemoglobin Sodium Potassium Chloride Carbon Dioxide BUN Creatinine Glucose POC Glucose 125 H 136 H Calcium Arterial Blood Glucose 129 H Phenytoin 10/20/20 10/21/20 10/21/20 17:58 00:09 04:14 WBC RBC Hgb Hct MCHC Lymph % (Auto) [place] % (Auto) Lymph # (Auto) [place] # (Auto) Seg Neutrophils % Seg Neuts % (Manual) Lymphocytes % (Manual) Seg Neutrophils # Seg Neutrophils # Man Lymphocytes # (Manual) ABG pH POC ABG pCO2 POC ABG pO2 ABG pO2 ABG HCO3 ABG O2 Saturation ABG Base Excess ABG Hemoglobin ABG Oxyhemoglobin ABG Sodium 134.6 L ABG Potassium 4.8 H ABG Glucose 145 H Oxyhemoglobin Sodium Potassium Chloride Carbon Dioxide BUN Creatinine Glucose POC Glucose 148 H 144 H Calcium Arterial Blood Glucose 145 H Phenytoin 10/21/20 10/21/20 10/21/20 04:48 05:17 12:43 WBC RBC Hgb Hct MCHC Lymph % (Auto) [place] % (Auto) Lymph # (Auto) [place] # (Auto) Seg Neutrophils % Seg Neuts % (Manual) Lymphocytes % (Manual) Seg Neutrophils # Seg Neutrophils # Man Lymphocytes # (Manual) ABG pH POC ABG pCO2 POC ABG pO2 ABG pO2 ABG HCO3 ABG O2 Saturation ABG Base Excess ABG Hemoglobin ABG Oxyhemoglobin ABG Sodium ABG Potassium ABG Glucose Oxyhemoglobin Sodium Potassium 5.1 H Chloride Carbon Dioxide BUN 36 H Creatinine 1.3 H D Glucose 137 H POC Glucose 132 H 133 H Calcium Arterial Blood Glucose Phenytoin 10/21/20 10/21/20 10/21/20 13:43 18:45 18:45 WBC 13.2 H RBC Hgb Hct MCHC Lymph % (Auto) 7.9 L [place] % (Auto) 11.1 H Lymph # (Auto) 1.1 L [place] # (Auto) 1.5 H Seg Neutrophils % 79.8 H Seg Neuts % (Manual) Lymphocytes % (Manual) Seg Neutrophils # 10.6 H Seg Neutrophils # Man Lymphocytes # (Manual) ABG pH POC ABG pCO2 POC ABG pO2 79.6 L ABG pO2 ABG HCO3 ABG O2 Saturation ABG Base Excess ABG Hemoglobin ABG Oxyhemoglobin ABG Sodium 135.8 L ABG Potassium 4.9 H ABG Glucose 155 H Oxyhemoglobin Sodium Potassium Chloride Carbon Dioxide BUN Creatinine Glucose POC Glucose Calcium Arterial Blood Glucose 155 H Phenytoin 6.7 L 10/22/20 10/22/20 10/22/20 04:48 05:31 12:30 WBC RBC Hgb Hct MCHC Lymph % (Auto) [place] % (Auto) Lymph # (Auto) [place] # (Auto) Seg Neutrophils % Seg Neuts % (Manual) Lymphocytes % (Manual) Seg Neutrophils # Seg Neutrophils # Man Lymphocytes # (Manual) ABG pH POC ABG pCO2 POC ABG pO2 ABG pO2 ABG HCO3 ABG O2 Saturation ABG Base Excess ABG Hemoglobin ABG Oxyhemoglobin ABG Sodium ABG Potassium ABG Glucose Oxyhemoglobin Sodium Potassium Chloride Carbon Dioxide BUN Creatinine Glucose POC Glucose 124 H 124 H Calcium Arterial Blood Glucose Phenytoin 6.6 L 10/22/20 10/23/20 10/23/20 18:04 00:09 00:16 WBC RBC Hgb Hct MCHC Lymph % (Auto) [place] % (Auto) Lymph # (Auto) [place] # (Auto) Seg Neutrophils % Seg Neuts % (Manual) Lymphocytes % (Manual) Seg Neutrophils # Seg Neutrophils # Man Lymphocytes # (Manual) ABG pH POC ABG pCO2 POC ABG pO2 ABG pO2 ABG HCO3 ABG O2 Saturation ABG Base Excess ABG Hemoglobin ABG Oxyhemoglobin ABG Sodium ABG Potassium ABG Glucose Oxyhemoglobin Sodium Potassium Chloride 109.6 H Carbon Dioxide 16 L BUN 68 H Creatinine 2.3 H D Glucose 148 H POC Glucose 130 H 149 H Calcium 8.3 L Arterial Blood Glucose Phenytoin 10/23/20 10/23/20 10/23/20 05:33 08:07 11:43 WBC RBC 3.41 L Hgb 9.7 L Hct 29.8 L MCHC Lymph % (Auto) 9.9 L [place] % (Auto) 15.0 H Lymph # (Auto) 0.8 L [place] # (Auto) 1.2 H Seg Neutrophils % 72.5 H Seg Neuts % (Manual) Lymphocytes % (Manual) Seg Neutrophils # Seg Neutrophils # Man Lymphocytes # (Manual) ABG pH POC ABG pCO2 POC ABG pO2 ABG pO2 ABG HCO3 ABG O2 Saturation ABG Base Excess ABG Hemoglobin ABG Oxyhemoglobin ABG Sodium ABG Potassium ABG Glucose Oxyhemoglobin Sodium Potassium Chloride Carbon Dioxide BUN Creatinine Glucose POC Glucose 135 H 140 H Calcium Arterial Blood Glucose Phenytoin Chest x-ray: image reviewed Allied health notes reviewed: RT
--- NOTE | 2020-10-23 14:21 | XRay Report ---
ABDOMEN 2 VIEWS INDICATION / CLINICAL INFORMATION: colonic pseudo-obstruction. COMPARISON: CT abdomen and pelvis without contrast from 10/21/2020. KUB from 10/20/2020. FINDINGS: TUBES / LINES: Unchanged. BOWEL GAS PATTERN: Marked generalized gaseous distention of the GI tract is again noted. FREE AIR / EXTRALUMINAL GAS: None seen. ADDITIONAL FINDINGS: No significant additional findings. CHEST: Visualized chest shows no significant abnormality. IMPRESSION: Stable marked gaseous distention of the GI tract. Signer Name: Pierce Crenshaw MD Signed: 10/23/2020 2:17 PM Workstation Name: [id number]
--- NOTE | 2020-10-23 14:24 | Progress Note ---
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 Afebrile and stable. no surgical intervention planned at this time. Continue with GI recommendation, agree with avoiding narcotics. Continue supportive care. Subjective Date of service: 10/23/20 Patient Reports: Positive: other (No acute events overnight. Nurse says that patient did have a bowel movement today with minimal out of the NGT.) Objective Vital Signs - 12hr 10/23/20 10/23/20 10/23/20 02:30 02:45 03:00 Temperature Pulse Rate 73 73 76 Pulse Rate [ From Monitor] Respiratory 20 20 20 Rate Blood Pressure 90/50 95/48 95/50 O2 Sat by Pulse 97 97 97 Oximetry 10/23/20 10/23/20 10/23/20 03:30 03:56 04:00 Temperature 97.8 F Pulse Rate 75 98 H Pulse Rate [ From Monitor] Respiratory 20 Rate Blood Pressure 103/52 O2 Sat by Pulse 97 Oximetry 10/23/20 10/23/20 10/23/20 04:01 04:10 04:31 Temperature Pulse Rate 96 H 101 H 92 H Pulse Rate [ From Monitor] Respiratory 24 20 Rate Blood Pressure 95/59 114/74 122/62 O2 Sat by Pulse 96 96 97 Oximetry 10/23/20 10/23/20 10/23/20 05:01 05:30 06:00 Temperature Pulse Rate 111 H 88 82 Pulse Rate [ From Monitor] Respiratory 26 H 20 20 Rate Blood Pressure 174/95 98/56 87/45 O2 Sat by Pulse 94 96 96 Oximetry 10/23/20 10/23/20 10/23/20 06:30 07:00 07:30 Temperature Pulse Rate 80 80 81 Pulse Rate [ From Monitor] Respiratory 20 20 20 Rate Blood Pressure 95/52 88/51 99/57 O2 Sat by Pulse 96 96 97 Oximetry 10/23/20 10/23/20 10/23/20 08:00 08:30 08:31 Temperature 98.8 F Pulse Rate 78 78 79 Pulse Rate [ 78 From Monitor] Respiratory 20 20 Rate Blood Pressure 101/56 103/53 103/53 O2 Sat by Pulse 97 97 97 Oximetry 10/23/20 10/23/20 10/23/20 09:01 09:30 10:00 Temperature Pulse Rate 90 81 79 Pulse Rate [ From Monitor] Respiratory 25 H 20 19 Rate Blood Pressure 96/58 113/67 86/47 O2 Sat by Pulse 97 96 95 Oximetry 10/23/20 10/23/20 10/23/20 10:30 11:00 11:30 Temperature Pulse Rate 85 85 83 Pulse Rate [ From Monitor] Respiratory 19 20 19 Rate Blood Pressure 92/51 95/57 95/52 O2 Sat by Pulse 96 96 97 Oximetry 10/23/20 10/23/20 10/23/20 11:45 12:00 12:31 Temperature 98.5 F Pulse Rate 81 80 76 Pulse Rate [ 81 From Monitor] Respiratory 19 20 Rate Blood Pressure 98/51 90/49 94/31 O2 Sat by Pulse 97 97 97 Oximetry 10/23/20 10/23/20 10/23/20 13:00 13:31 14:01 Temperature Pulse Rate 84 85 91 H Pulse Rate [ From Monitor] Respiratory 22 22 23 Rate Blood Pressure 101/41 107/37 114/78 O2 Sat by Pulse 98 97 97 Oximetry - General physical appearance well developed, obese - Respiratory normal expansion, normal respiratory effort, other (intubated) - Abdomen soft, not tender, distended, not rebound, not guarding, not rigid - Labs 10/23/20 08:07 10/23/20 00:16 Diabetes panel 10/23/20 Range/Units 00:16 Sodium 140 (137-145) mmol/L Potassium 4.9 (3.6-5.0) mmol/L Chloride 109.6 H (98-107) mmol/L Carbon Dioxide 16 L (22-30) mmol/L BUN 68 H (7-17) mg/dL Creatinine 2.3 H D (0.6-1.2) mg/dL Glucose 148 H (65-100) mg/dL Calcium 8.3 L (8.4-10.2) mg/dL Calcium panel 10/23/20 Range/Units 00:16 Calcium 8.3 L (8.4-10.2) mg/dL Pituitary panel 10/23/20 Range/Units 00:16 Sodium 140 (137-145) mmol/L Potassium 4.9 (3.6-5.0) mmol/L Chloride 109.6 H (98-107) mmol/L Carbon Dioxide 16 L (22-30) mmol/L BUN 68 H (7-17) mg/dL Creatinine 2.3 H D (0.6-1.2) mg/dL Glucose 148 H (65-100) mg/dL Calcium 8.3 L (8.4-10.2) mg/dL Adrenal panel 10/23/20 Range/Units 00:16 Sodium 140 (137-145) mmol/L Potassium 4.9 (3.6-5.0) mmol/L Chloride 109.6 H (98-107) mmol/L Carbon Dioxide 16 L (22-30) mmol/L BUN 68 H (7-17) mg/dL Creatinine 2.3 H D (0.6-1.2) mg/dL Glucose 148 H (65-100) mg/dL Calcium 8.3 L (8.4-10.2) mg/dL
[2020-10-23] MEDS: POLYETHYLENE GLYCOL 3350 17 GM POWDER PO SCH (21:05)
[2020-10-24] MEDS: METOCLOPRAMIDE 10 MG/2 ML INJ IV SCH ×4 (02:16→23:51)
[2020-10-24] MEDS: PHENYTOIN IV SCH ×3 (02:16→18:32)
[2020-10-24] MEDS: SODIUM CHLORIDE 0.9% IV SCH ×3 (02:16→18:32)
[2020-10-24] MEDS: D5W/0.9% NACL 1,000 ML IV SCH (04:34)
[2020-10-24] MEDS: LACOSAMIDE 200 MG in SODIUM CHLORIDE 0.9% 100 ML IV SCH ×2 (04:42→15:38)
[2020-10-24] MEDS: LORazepam 2 MG/ML VIAL IV PRN (05:34)
--- NOTE | 2020-10-24 08:20 | Progress Note ---
Assessment and Plan The high probability of a clinically significant, sudden or life threatening deterioration of the [cardiac, pulmonary, renal] system(s) required my full and direct attention, intervention and personal management. The aggregate critical care time was [40] minutes. This time is in addition to time spent performing reported procedures but includes the following: [x] Data Review and interpretation [x] Patient assessment and monitoring of vital signs [x] Documentation [x] Medication orders and management (1) Acute respiratory failure Current Visit: Yes Status: Acute Qualifiers: Respiratory failure complication: hypoxia Qualified Code(s): J96.01 - Acute respiratory failure with hypoxia Plan to address problem: Weaning in progress (2) Status epilepticus Current Visit: Yes Status: Acute Plan to address problem: Patient on transfer list to [place] Patient on IV Keppra and IV Vimpat and phenytoin (3) Hypertensive emergency Current Visit: Yes Status: Acute Plan to address problem: Blood pressure controlled (4) Acute encephalopathy Current Visit: Yes Status: Acute Plan to address problem: Patient sedated (5) Leukocytosis Current Visit: Yes Status: Acute Plan to address problem: Resolved (6) DVT prophylaxis Current Visit: Yes Status: Acute Plan to address problem: SCD to bilateral lower extremities while in bed, prophylactic anticoagulation (7) Advance care planning Current Visit: Yes Status: Acute Plan to address problem: Disease education conducted, patient is full code, prognosis discussed, +30 minutes. Subjective Date of service: 10/23/20 Principal diagnosis: Ac hypoxemic & hypercapnic resp failure; Status epilepticus; HTNsive emerge Interval history: 65 YO Female with Obesity, HTN, presents to ED for evaluation. Patient is intubated and on ventilatory support at the time of my evaluation and is unable to provide history. Patient history is taken from EMS staff, ED staff. As per staff the patient was found down and unresponsive by her neighbor. Patient neighbor describe seizure-like activity. EMS was notified and upon arrival the patient was found to be in distress and actively seizing. Patient treated with 2 mg of Ativan which terminated the seizures. The patient was subsequently transported to [facility] for further evaluation and care of the aforementioned symptoms. Patient was seen and evaluated in the emergency department. All lab and imaging studies reviewed. Patient found to have symptoms consistent with status epilepticus which was evidenced by recurrent seizures in the emergency department with concomitant decrease in pulse oximetry to 84% on room air. The patient was also found to have hypertensive emergency with a blood pressure of 223/143. The patient was deemed unable to protect her airway and was intubated for airway protection. Patient also found to have acute encephalopathy. Patient admitted to ICU due to increased risk of decompensation. Critical care team consulted in ED. No prior admission for review. No medication listed at time of admission for reconciliation. Advanced care planning conducted in ED. No seizures Weaning in progress Objective - Exam Narrative Exam: Intubated - Constitutional Vitals: Vital Signs - 12hr 10/23/20 10/23/20 10/23/20 21:00 21:30 21:45 Temperature Pulse Rate 100 H 88 82 Respiratory 23 22 21 Rate Blood Pressure 143/66 119/63 85/44 O2 Sat by Pulse 96 96 95 Oximetry 10/23/20 10/23/20 10/23/20 22:00 22:15 22:30 Temperature Pulse Rate 81 82 91 H Respiratory 21 21 23 Rate Blood Pressure 77/36 86/44 86/44 O2 Sat by Pulse 95 96 97 Oximetry 10/23/20 10/23/20 10/23/20 22:46 23:00 23:10 Temperature Pulse Rate 92 H 92 H 92 H Respiratory 24 25 H 26 H Rate Blood Pressure 107/48 113/51 113/51 O2 Sat by Pulse 97 97 97 Oximetry 10/23/20 10/23/20 10/23/20 23:15 23:26 23:30 Temperature Pulse Rate 90 91 H 92 H Respiratory 23 24 Rate Blood Pressure 130/54 130/54 134/62 O2 Sat by Pulse 97 97 97 Oximetry 10/23/20 10/24/20 10/24/20 23:46 00:00 00:07 Temperature 99.2 F Pulse Rate 91 H 94 H 96 H Respiratory 21 22 Rate Blood Pressure 136/55 141/61 O2 Sat by Pulse 97 97 Oximetry 10/24/20 10/24/20 10/24/20 00:15 00:30 01:00 Temperature Pulse Rate 90 86 92 H Respiratory 20 20 24 Rate Blood Pressure 123/46 114/46 93/46 O2 Sat by Pulse 98 98 96 Oximetry 10/24/20 10/24/20 10/24/20 01:30 02:00 02:30 Temperature Pulse Rate 97 H 93 H 95 H Respiratory 26 H 24 24 Rate Blood Pressure 127/74 116/55 129/54 O2 Sat by Pulse 97 97 97 Oximetry 10/24/20 10/24/20 10/24/20 03:00 03:30 03:47 Temperature Pulse Rate 87 78 92 H Respiratory 22 20 Rate Blood Pressure 139/70 87/43 150/69 O2 Sat by Pulse 97 96 97 Oximetry 10/24/20 10/24/20 10/24/20 03:54 04:00 04:30 Temperature 100.2 F H Pulse Rate 96 H 91 H 72 Respiratory 23 23 Rate Blood Pressure 150/69 114/63 O2 Sat by Pulse 97 98 Oximetry 10/24/20 10/24/20 10/24/20 05:00 05:30 05:46 Temperature Pulse Rate 78 97 H 69 Respiratory 19 24 29 H Rate Blood Pressure 148/78 109/43 152/84 O2 Sat by Pulse 96 97 97 Oximetry 10/24/20 10/24/20 10/24/20 06:00 06:16 08:12 Temperature Pulse Rate 96 H 83 95 H Respiratory 23 22 28 H Rate Blood Pressure 186/93 96/36 148/86 O2 Sat by Pulse 98 96 97 Oximetry General appearance: Present: no acute distress, well-nourished - EENT Eyes: PERRL, EOM intact ENT: hearing intact, clear oral mucosa Ears: bilateral: normal - Neck Neck: supple, normal ROM - Respiratory Respiratory effort: normal Respiratory: bilateral: CTA - Breasts Breasts: normal - Cardiovascular Heart rate: 78 Rhythm: regular Heart Sounds: Present: S1 & S2. Absent: gallop, rub Extremities: pulses intact, No edema, normal color, Full ROM - Gastrointestinal General gastrointestinal: Present: soft, non-tender, non-distended, normal bowel sounds - Genitourinary Female genitourinary: normal - Integumentary Integumentary: clear, warm, dry - Musculoskeletal Musculoskeletal: 1, strength equal bilaterally - Neurologic Neurologic: moves all extremities, other (Patient intubated) - Psychiatric Psychiatric: other (Patient intubated) - Labs CBC & Chem 7: 10/30/20 07:53 10/30/20 07:53 Labs: Abnormal lab results 10/23/20 10/23/20 10/23/20 Range/Units 08:07 11:43 17:50 RBC 3.41 L (3.65-5.03) M/mm3 Hgb 9.7 L (10.1-14.3) gm/dl Hct 29.8 L (30.3-42.9) % Lymph % (Auto) 9.9 L (13.4-35.0) % [place] % (Auto) 15.0 H (0.0-7.3) % Lymph # (Auto) 0.8 L (1.2-5.4) K/mm3 [place] # (Auto) 1.2 H (0.0-0.8) K/mm3 Seg Neutrophils % 72.5 H (40.0-70.0) % POC Glucose 140 H 121 H (70-105) mg/dL 10/24/20 10/24/20 Range/Units 00:08 05:22 RBC (3.65-5.03) M/mm3 Hgb (10.1-14.3) gm/dl Hct (30.3-42.9) % Lymph % (Auto) (13.4-35.0) % [place] % (Auto) (0.0-7.3) % Lymph # (Auto) (1.2-5.4) K/mm3 [place] # (Auto) (0.0-0.8) K/mm3 Seg Neutrophils % (40.0-70.0) % POC Glucose 131 H 132 H (70-105) mg/dL HEART Score - HEART Score Troponin: Troponin T 0.015 ng/mL (0.00-0.029) 10/14/20 13:36
[2020-10-24] MEDS: FAMOTIDINE 20 MG TAB PO SCH (09:45)
[2020-10-24] MEDS: DOCUSATE SODIUM 100 MG/10 ML ORAL LIQD PO SCH ×2 (09:45→23:27)
[2020-10-24] MEDS: POLYETHYLENE GLYCOL/ELECT SOLN 4000 ML NGTUBE SCH ×2 (09:45→09:47)
[2020-10-24] MEDS: HEPARIN 5,000 UNIT/1 ML VIAL SUB-Q SCH ×2 (09:45→23:44)
[2020-10-24] MEDS: QUEtiapine 200 MG TAB PO SCH ×2 (09:45→23:37)
[2020-10-24] MEDS: levETIRAcetam 1,500 MG in DEXTROSE 5% IN WATER 100 ML IV SCH ×2 (09:46→22:05)
--- NOTE | 2020-10-24 09:46 | Gastroenterology Progress Note ---
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 Subjective Date of service: 10/24/20 Principal diagnosis: Ac hypoxemic & hypercapnic resp failure; Status epilepticus; HTNsive emerge Interval history: Patient is intubated and sedated unable to talk with me Small amount of stool in the rectal tubing, nurse reports that is all that has passed Objective - Constitutional Vitals: Temp Pulse Resp BP Pulse Ox 98.9 F 94 H 29 H 150/82 97 10/24/20 08:00 10/24/20 08:15 10/24/20 08:15 10/24/20 08:15 10/24/20 08:15 General appearance: other (Intubated) - Cardiovascular Rhythm: regular - Gastrointestinal General gastrointestinal: Present: other (mild distention with mild tympany) - Integumentary Integumentary: Present: dry - Neurologic Neurological: other (Not responding to commands) - Labs CBC & Chem 7: 10/23/20 08:07 10/23/20 00:16 Labs: Laboratory Results - last 24 hr 10/23/20 10/23/20 10/24/20 11:43 17:50 00:08 POC Glucose 140 H 121 H 131 H 10/24/20 05:22 POC Glucose 132 H
[2020-10-24 10:30] LABS: Basophils % (Auto) 0.4 % (0.0-1.8); Eosinophils # (Auto) 0.2 K/mm3 (0.0-0.4); Hemoglobin 10.2 gm/dl (10.1-14.3); Lymphocytes # (Auto) 0.9 K/mm3 (1.2-5.4); Lymphocytes % (Auto) 8.9 % (13.4-35.0); Mean Corpuscular HGB Conc 33 % (30-34); Mean Corpuscular Volume 86 fl (79-97); Monocytes % (Auto) 10.4 % (0.0-7.3); Platelet Count 202 K/mm3 (140-440); Red Blood Count 3.61 M/mm3 (3.65-5.03); Red Cell Distribution Width 14.8 % (13.2-15.2)
[2020-10-24] MEDS: SODIUM CHLORIDE 0.9% 1000 ML 1,000 ML IV SCH ×2 (10:30→23:52)
[2020-10-24 10:49] LABS: Alanine Aminotransferase 15 units/L (7-56); Albumin 2.9 g/dL (3.9-5); BUN/Creatinine Ratio 44; Blood Urea Nitrogen 40 mg/dL (7-17); Calcium 8.6 mg/dL (8.4-10.2); Hemolysis Index 36
--- NOTE | 2020-10-24 13:02 | Progress Note ---
Assessment and Plan Acute hypoxemic and hypercapnic respiratory failure. Acute encephalopathy (Toxic / metabolic). Status epilepticus. Hypertensive emergency at presentation. History of a brain aneurysm repair. Obesity. History of hypertension. Leukocytosis. Mild hyponatremia. Hyperglycemia. - continue Golytely and follow further GI recommendations - tentative trial of extubation in am - continue bowel regimen - rest on AC overnight - continue care as below otherwise; - continue low dose reglan - continue bowel regimen with colace & miralax - continue daily SAT's and SBT assessment as tolerated - continue Vimpat & Keppra (Adjust per neurologist) - continue enteral nutrition at goal rate as tolerated - continue Seroquel 200 mg p.o. bid to spare IV sedatives - continue to wean supplemental oxygen for target O2 sat's > 92% acutely - VAP bundle addressed - continue lung protective strategies - continue bronchodilators with pulmonary hygiene per RT - wean per pulmonary driven protocols otherwise - sedation prn for target RASS -1 to -2 - begin enteral nutritional support at goal rate as tolerated - empiric AB's coverage per ID rec's otherwise - accuchecks with glycemic control per SSI (While critically ill target blood glucose of 140-180 mg/dL; avoid hypoglycemia) - avoid nephrotoxins, renally dose all medications - continue Keppra as AED - continue to avoid benzodiazepine's, reduce the possibility of delirium - prn analgesia per CPOT score - Maintenance of sleep-wake cycle, avoid delirium - continue to avoid benzodiazepine's, reduce the possibility of delirium - aspiration precautions - G.I. & VTE prophylaxis - PT/OT/ROM exercises - continue mobility protocols for pressure ulcer prophylaxis - Monitor hemodynamics closely - continue other care per attending / other consultants - discharge planning ongoing concurrently .... Re-evaluate in am & prn CONDITION: CRITICAL PROGNOSIS: GUARDED CODE STATUS: FULL CODE The high probability of a clinically significant, sudden or life-threatening deterioration of the [respiratory, cardiovascular & neurologic] system(s) required my full and direct attention, intervention and personal management. The aggregate critical care time was [32] minutes without overlap. Time includes spent on; [x] Data Review and interpretation [x] Patient assessment and monitoring of vital signs [x] Documentation [x] Medication orders and management Subjective Date of service: 10/24/20 Principal diagnosis: Ac hypoxemic & hypercapnic resp failure; Status epilepticus; HTNsive emerge Interval history: Patient is seen today for: Ac hypoxemic and hypercapnic resp failure; Ac. encephalopathy; Status epilepticus; HTNsive emergency; History of a brain aneurysm repair; Obesity Seen and examined at bedside; 24hour events reviewed; nursing and respiratory care staff consulted; no adverse overnight events reported to me; resting peacefully in bed; abdomen much softer; on SBT and tolerating well; responds to simple prompts; no emesis or overt aspiration; GI / Surgery inputs noted and appreciated. Objective Vital Signs - 12hr 10/24/20 10/24/20 10/24/20 01:30 02:00 02:30 Temperature Pulse Rate 97 H 93 H 95 H Pulse Rate [ From Monitor] Respiratory 26 H 24 24 Rate Blood Pressure 127/74 116/55 129/54 O2 Sat by Pulse 97 97 97 Oximetry 10/24/20 10/24/20 10/24/20 03:00 03:30 03:47 Temperature Pulse Rate 87 78 92 H Pulse Rate [ From Monitor] Respiratory 22 20 Rate Blood Pressure 139/70 87/43 150/69 O2 Sat by Pulse 97 96 97 Oximetry 10/24/20 10/24/20 10/24/20 03:54 04:00 04:30 Temperature 100.2 F H Pulse Rate 96 H 91 H 72 Pulse Rate [ From Monitor] Respiratory 23 23 Rate Blood Pressure 150/69 114/63 O2 Sat by Pulse 97 98 Oximetry 10/24/20 10/24/20 10/24/20 05:00 05:30 05:46 Temperature Pulse Rate 78 97 H 69 Pulse Rate [ From Monitor] Respiratory 19 24 29 H Rate Blood Pressure 148/78 109/43 152/84 O2 Sat by Pulse 96 97 97 Oximetry 10/24/20 10/24/20 10/24/20 06:00 06:16 06:30 Temperature Pulse Rate 96 H 83 78 Pulse Rate [ From Monitor] Respiratory 23 22 20 Rate Blood Pressure 186/93 96/36 79/42 O2 Sat by Pulse 98 96 96 Oximetry 10/24/20 10/24/20 10/24/20 06:45 07:00 07:16 Temperature Pulse Rate 62 76 83 Pulse Rate [ From Monitor] Respiratory 20 20 26 H Rate Blood Pressure 94/43 78/43 145/68 O2 Sat by Pulse 97 97 99 Oximetry 10/24/20 10/24/20 10/24/20 07:30 07:46 08:00 Temperature 98.9 F Pulse Rate 63 64 61 Pulse Rate [ 60 From Monitor] Respiratory 25 H 26 H 28 H Rate Blood Pressure 145/68 157/82 157/82 O2 Sat by Pulse 99 97 98 Oximetry 10/24/20 10/24/20 10/24/20 08:12 08:15 08:30 Temperature Pulse Rate 95 H 94 H 62 Pulse Rate [ From Monitor] Respiratory 28 H 29 H 20 Rate Blood Pressure 148/86 150/82 150/82 O2 Sat by Pulse 97 97 97 Oximetry 10/24/20 10/24/20 10/24/20 08:46 09:00 09:15 Temperature Pulse Rate 59 L 62 84 Pulse Rate [ From Monitor] Respiratory 27 H 31 H 22 Rate Blood Pressure 154/67 154/67 142/69 O2 Sat by Pulse 98 98 98 Oximetry 10/24/20 10/24/20 10/24/20 09:30 09:45 10:00 Temperature Pulse Rate 93 H 90 60 Pulse Rate [ From Monitor] Respiratory 31 H 26 H 21 Rate Blood Pressure 150/128 160/81 160/81 O2 Sat by Pulse 98 97 97 Oximetry 10/24/20 10/24/20 10/24/20 10:15 10:30 10:45 Temperature Pulse Rate 59 L 71 71 Pulse Rate [ From Monitor] Respiratory 21 20 21 Rate Blood Pressure 94/38 78/40 84/36 O2 Sat by Pulse 97 97 97 Oximetry 10/24/20 10/24/20 11:00 12:24 Temperature Pulse Rate 79 84 Pulse Rate [ From Monitor] Respiratory 27 H 28 H Rate Blood Pressure 125/67 89/47 O2 Sat by Pulse 99 99 Oximetry Constitutional: no acute distress, other (elderly obese female without significant patient / ventilator dyssynchrony) Eyes: non-icteric ENT: oropharynx moist, other (ETT 24 cm NATIVIDAD) Neck: supple, no lymphadenopathy, no JVD Effort: mildly labored Ascultation: Bilateral: diminished breath sounds, rhonchi (scant) Percussion: Bilateral: not dull Cardiovascular: regular rate and rhythm Gastrointestinal: normoactive bowel sounds, soft, non-tender, other (Distended, firm) Integumentary: normal Extremities: no cyanosis, no edema, pink and warm, pulses normal Neurologic: non-focal exam (grossly), pupils equal and round, other (sedated but responds appropriately) Psychiatric: other (sedated) CBC and BMP: 10/24/20 10:10 10/24/20 10:10 ABG, PT/INR, D-dimer: ABG ABG pH 7.393 (7.320-7.450) 10/21/20 13:43 POC ABG pCO2 34.4 mmHg (32.0-48.0) 10/21/20 13:43 ABG pCO2 46.2 mm Hg 10/19/20 04:55 POC ABG pO2 79.6 mmHg (83-108) L 10/21/20 13:43 ABG pO2 84.7 mm Hg (80.0-90.0) 10/19/20 04:55 POC ABG HCO3 20.5 10/21/20 13:43 ABG O2 Saturation 96.7 % (95.0-99.0) 10/19/20 04:55 PT/INR, D-dimer PT 14.0 Sec. (12.2-14.9) 10/14/20 13:36 INR 1.07 (0.87-1.13) 10/14/20 13:36 Abnormal lab findings: Abnormal Labs 10/14/20 10/14/20 10/14/20 13:36 13:36 14:22 WBC 14.7 H RBC Hgb Hct MCHC 35 H Lymph % (Auto) Russell % (Auto) Lymph # (Auto) Russell # (Auto) Seg Neutrophils % Seg Neuts % (Manual) 89.0 H Lymphocytes % (Manual) 4.0 L Seg Neutrophils # Seg Neutrophils # Man 13.1 H Lymphocytes # (Manual) 0.6 L ABG pH 7.298 L POC ABG pCO2 POC ABG pO2 ABG pO2 285.8 H ABG HCO3 ABG O2 Saturation 99.5 H ABG Base Excess -4.1 L ABG Hemoglobin ABG Oxyhemoglobin ABG Sodium ABG Potassium ABG Glucose Oxyhemoglobin Sodium 131 L Potassium Chloride 97.2 L Carbon Dioxide BUN Creatinine Glucose 170 H POC Glucose Calcium Total Protein Albumin Arterial Blood Glucose Phenytoin 10/14/20 10/15/20 10/15/20 17:09 03:35 04:33 WBC RBC Hgb Hct MCHC 36 H Lymph % (Auto) 9.6 L Russell % (Auto) 10.1 H Lymph # (Auto) 1.0 L Russell # (Auto) 1.1 H Seg Neutrophils % 79.8 H Seg Neuts % (Manual) Lymphocytes % (Manual) Seg Neutrophils # 8.4 H Seg Neutrophils # Man Lymphocytes # (Manual) ABG pH 7.536 H POC ABG pCO2 POC ABG pO2 ABG pO2 185.0 H 110.2 H ABG HCO3 ABG O2 Saturation 99.2 H ABG Base Excess ABG Hemoglobin ABG Oxyhemoglobin ABG Sodium ABG Potassium ABG Glucose Oxyhemoglobin Sodium Potassium Chloride Carbon Dioxide BUN Creatinine Glucose POC Glucose Calcium Total Protein Albumin Arterial Blood Glucose Phenytoin 10/15/20 10/15/20 10/16/20 04:33 13:12 00:09 WBC RBC Hgb Hct MCHC Lymph % (Auto) Russell % (Auto) Lymph # (Auto) Russell # (Auto) Seg Neutrophils % Seg Neuts % (Manual) Lymphocytes % (Manual) Seg Neutrophils # Seg Neutrophils # Man Lymphocytes # (Manual) ABG pH 7.297 L POC ABG pCO2 51.0 H POC ABG pO2 56.7 L ABG pO2 ABG HCO3 ABG O2 Saturation ABG Base Excess ABG Hemoglobin ABG Oxyhemoglobin 84.6 L ABG Sodium 134.4 L ABG Potassium ABG Glucose 118 H Oxyhemoglobin Sodium Potassium Chloride Carbon Dioxide BUN Creatinine Glucose 120 H POC Glucose 114 H Calcium Total Protein Albumin Arterial Blood Glucose 118 H Phenytoin 10/16/20 10/16/20 10/17/20 05:42 05:46 04:08 WBC RBC Hgb Hct MCHC Lymph % (Auto) Russell % (Auto) Lymph # (Auto) Russell # (Auto) Seg Neutrophils % Seg Neuts % (Manual) Lymphocytes % (Manual) Seg Neutrophils # Seg Neutrophils # Man Lymphocytes # (Manual) ABG pH POC ABG pCO2 POC ABG pO2 ABG pO2 96.6 H ABG HCO3 ABG O2 Saturation ABG Base Excess ABG Hemoglobin ABG Oxyhemoglobin ABG Sodium 132.6 L ABG Potassium ABG Glucose 112 H Oxyhemoglobin Sodium Potassium Chloride Carbon Dioxide BUN Creatinine Glucose POC Glucose 106 H Calcium Total Protein Albumin Arterial Blood Glucose 112 H Phenytoin 10/17/20 10/17/20 10/17/20 09:23 09:23 10:46 WBC 12.3 H RBC Hgb Hct MCHC Lymph % (Auto) Russell % (Auto) Lymph # (Auto) Russell # (Auto) Seg Neutrophils % Seg Neuts % (Manual) Lymphocytes % (Manual) Seg Neutrophils # Seg Neutrophils # Man Lymphocytes # (Manual) ABG pH POC ABG pCO2 POC ABG pO2 71.6 L ABG pO2 ABG HCO3 ABG O2 Saturation ABG Base Excess ABG Hemoglobin ABG Oxyhemoglobin 92.6 L ABG Sodium 134.8 L ABG Potassium ABG Glucose 105 H Oxyhemoglobin Sodium Potassium Chloride Carbon Dioxide 21 L BUN 19 H Creatinine Glucose POC Glucose Calcium Total Protein Albumin Arterial Blood Glucose 105 H Phenytoin 10/17/20 10/18/20 10/18/20 23:43 04:18 08:32 WBC RBC Hgb Hct MCHC Lymph % (Auto) Russell % (Auto) Lymph # (Auto) Russell # (Auto) Seg Neutrophils % Seg Neuts % (Manual) Lymphocytes % (Manual) Seg Neutrophils # Seg Neutrophils # Man Lymphocytes # (Manual) ABG pH POC ABG pCO2 POC ABG pO2 81.9 L ABG pO2 ABG HCO3 ABG O2 Saturation ABG Base Excess ABG Hemoglobin ABG Oxyhemoglobin ABG Sodium 133.3 L ABG Potassium ABG Glucose 125 H Oxyhemoglobin Sodium Potassium Chloride Carbon Dioxide BUN Creatinine Glucose POC Glucose 118 H Calcium Total Protein Albumin Arterial Blood Glucose 125 H Phenytoin 7.1 L 10/18/20 10/18/20 10/18/20 08:32 08:32 12:34 WBC RBC Hgb Hct MCHC Lymph % (Auto) 12.4 L Russell % (Auto) Lymph # (Auto) Russell # (Auto) Seg Neutrophils % 77.0 H Seg Neuts % (Manual) Lymphocytes % (Manual) Seg Neutrophils # Seg Neutrophils # Man Lymphocytes # (Manual) ABG pH POC ABG pCO2 POC ABG pO2 ABG pO2 ABG HCO3 ABG O2 Saturation ABG Base Excess ABG Hemoglobin ABG Oxyhemoglobin ABG Sodium ABG Potassium ABG Glucose Oxyhemoglobin Sodium 135 L Potassium Chloride Carbon Dioxide BUN 21 H Creatinine Glucose 131 H POC Glucose 121 H Calcium Total Protein Albumin Arterial Blood Glucose Phenytoin 10/18/20 10/18/20 10/19/20 18:12 23:47 04:55 WBC RBC Hgb Hct MCHC Lymph % (Auto) Russell % (Auto) Lymph # (Auto) Russell # (Auto) Seg Neutrophils % Seg Neuts % (Manual) Lymphocytes % (Manual) Seg Neutrophils # Seg Neutrophils # Man Lymphocytes # (Manual) ABG pH POC ABG pCO2 POC ABG pO2 ABG pO2 ABG HCO3 27.1 H ABG O2 Saturation ABG Base Excess ABG Hemoglobin 11.1 L ABG Oxyhemoglobin ABG Sodium ABG Potassium ABG Glucose Oxyhemoglobin 94.9 L Sodium Potassium Chloride Carbon Dioxide BUN Creatinine Glucose POC Glucose 133 H 142 H Calcium Total Protein Albumin Arterial Blood Glucose Phenytoin 10/19/20 10/19/20 10/19/20 06:02 07:59 12:35 WBC RBC Hgb Hct MCHC Lymph % (Auto) Russell % (Auto) Lymph # (Auto) Russell # (Auto) Seg Neutrophils % Seg Neuts % (Manual) Lymphocytes % (Manual) Seg Neutrophils # Seg Neutrophils # Man Lymphocytes # (Manual) ABG pH POC ABG pCO2 POC ABG pO2 ABG pO2 ABG HCO3 ABG O2 Saturation ABG Base Excess ABG Hemoglobin ABG Oxyhemoglobin ABG Sodium ABG Potassium ABG Glucose Oxyhemoglobin Sodium Potassium Chloride Carbon Dioxide BUN Creatinine Glucose 144 H POC Glucose 143 H 132 H Calcium Total Protein Albumin Arterial Blood Glucose Phenytoin 10/19/20 10/19/20 10/19/20 16:12 16:31 23:17 WBC RBC Hgb Hct MCHC Lymph % (Auto) Russell % (Auto) Lymph # (Auto) Russell # (Auto) Seg Neutrophils % Seg Neuts % (Manual) Lymphocytes % (Manual) Seg Neutrophils # Seg Neutrophils # Man Lymphocytes # (Manual) ABG pH 7.461 H POC ABG pCO2 POC ABG pO2 75.8 L ABG pO2 ABG HCO3 ABG O2 Saturation ABG Base Excess ABG Hemoglobin ABG Oxyhemoglobin ABG Sodium 134.0 L ABG Potassium ABG Glucose 156 H Oxyhemoglobin Sodium Potassium Chloride Carbon Dioxide BUN Creatinine Glucose POC Glucose 120 H 128 H Calcium Total Protein Albumin Arterial Blood Glucose 156 H Phenytoin 10/20/20 10/20/20 10/20/20 03:25 05:26 12:12 WBC RBC Hgb Hct MCHC Lymph % (Auto) Russell % (Auto) Lymph # (Auto) Russell # (Auto) Seg Neutrophils % Seg Neuts % (Manual) Lymphocytes % (Manual) Seg Neutrophils # Seg Neutrophils # Man Lymphocytes # (Manual) ABG pH POC ABG pCO2 POC ABG pO2 ABG pO2 ABG HCO3 ABG O2 Saturation ABG Base Excess ABG Hemoglobin ABG Oxyhemoglobin ABG Sodium 134.0 L ABG Potassium ABG Glucose 129 H Oxyhemoglobin Sodium Potassium Chloride Carbon Dioxide BUN Creatinine Glucose POC Glucose 125 H 136 H Calcium Total Protein Albumin Arterial Blood Glucose 129 H Phenytoin 10/20/20 10/21/20 10/21/20 17:58 00:09 04:14 WBC RBC Hgb Hct MCHC Lymph % (Auto) Russell % (Auto) Lymph # (Auto) Russell # (Auto) Seg Neutrophils % Seg Neuts % (Manual) Lymphocytes % (Manual) Seg Neutrophils # Seg Neutrophils # Man Lymphocytes # (Manual) ABG pH POC ABG pCO2 POC ABG pO2 ABG pO2 ABG HCO3 ABG O2 Saturation ABG Base Excess ABG Hemoglobin ABG Oxyhemoglobin ABG Sodium 134.6 L ABG Potassium 4.8 H ABG Glucose 145 H Oxyhemoglobin Sodium Potassium Chloride Carbon Dioxide BUN Creatinine Glucose POC Glucose 148 H 144 H Calcium Total Protein Albumin Arterial Blood Glucose 145 H Phenytoin 10/21/20 10/21/20 10/21/20 04:48 05:17 12:43 WBC RBC Hgb Hct MCHC Lymph % (Auto) Russell % (Auto) Lymph # (Auto) Russell # (Auto) Seg Neutrophils % Seg Neuts % (Manual) Lymphocytes % (Manual) Seg Neutrophils # Seg Neutrophils # Man Lymphocytes # (Manual) ABG pH POC ABG pCO2 POC ABG pO2 ABG pO2 ABG HCO3 ABG O2 Saturation ABG Base Excess ABG Hemoglobin ABG Oxyhemoglobin ABG Sodium ABG Potassium ABG Glucose Oxyhemoglobin Sodium Potassium 5.1 H Chloride Carbon Dioxide BUN 36 H Creatinine 1.3 H D Glucose 137 H POC Glucose 132 H 133 H Calcium Total Protein Albumin Arterial Blood Glucose Phenytoin 10/21/20 10/21/20 10/21/20 13:43 18:45 18:45 WBC 13.2 H RBC Hgb Hct MCHC Lymph % (Auto) 7.9 L Russell % (Auto) 11.1 H Lymph # (Auto) 1.1 L Russell # (Auto) 1.5 H Seg Neutrophils % 79.8 H Seg Neuts % (Manual) Lymphocytes % (Manual) Seg Neutrophils # 10.6 H Seg Neutrophils # Man Lymphocytes # (Manual) ABG pH POC ABG pCO2 POC ABG pO2 79.6 L ABG pO2 ABG HCO3 ABG O2 Saturation ABG Base Excess ABG Hemoglobin ABG Oxyhemoglobin ABG Sodium 135.8 L ABG Potassium 4.9 H ABG Glucose 155 H Oxyhemoglobin Sodium Potassium Chloride Carbon Dioxide BUN Creatinine Glucose POC Glucose Calcium Total Protein Albumin Arterial Blood Glucose 155 H Phenytoin 6.7 L 10/22/20 10/22/20 10/22/20 04:48 05:31 12:30 WBC RBC Hgb Hct MCHC Lymph % (Auto) Russell % (Auto) Lymph # (Auto) Russell # (Auto) Seg Neutrophils % Seg Neuts % (Manual) Lymphocytes % (Manual) Seg Neutrophils # Seg Neutrophils # Man Lymphocytes # (Manual) ABG pH POC ABG pCO2 POC ABG pO2 ABG pO2 ABG HCO3 ABG O2 Saturation ABG Base Excess ABG Hemoglobin ABG Oxyhemoglobin ABG Sodium ABG Potassium ABG Glucose Oxyhemoglobin Sodium Potassium Chloride Carbon Dioxide BUN Creatinine Glucose POC Glucose 124 H 124 H Calcium Total Protein Albumin Arterial Blood Glucose Phenytoin 6.6 L 10/22/20 10/23/20 10/23/20 18:04 00:09 00:16 WBC RBC Hgb Hct MCHC Lymph % (Auto) Russell % (Auto) Lymph # (Auto) Russell # (Auto) Seg Neutrophils % Seg Neuts % (Manual) Lymphocytes % (Manual) Seg Neutrophils # Seg Neutrophils # Man Lymphocytes # (Manual) ABG pH POC ABG pCO2 POC ABG pO2 ABG pO2 ABG HCO3 ABG O2 Saturation ABG Base Excess ABG Hemoglobin ABG Oxyhemoglobin ABG Sodium ABG Potassium ABG Glucose Oxyhemoglobin Sodium Potassium Chloride 109.6 H Carbon Dioxide 16 L BUN 68 H Creatinine 2.3 H D Glucose 148 H POC Glucose 130 H 149 H Calcium 8.3 L Total Protein Albumin Arterial Blood Glucose Phenytoin 10/23/20 10/23/20 10/23/20 05:33 08:07 11:43 WBC RBC 3.41 L Hgb 9.7 L Hct 29.8 L MCHC Lymph % (Auto) 9.9 L Russell % (Auto) 15.0 H Lymph # (Auto) 0.8 L Russell # (Auto) 1.2 H Seg Neutrophils % 72.5 H Seg Neuts % (Manual) Lymphocytes % (Manual) Seg Neutrophils # Seg Neutrophils # Man Lymphocytes # (Manual) ABG pH POC ABG pCO2 POC ABG pO2 ABG pO2 ABG HCO3 ABG O2 Saturation ABG Base Excess ABG Hemoglobin ABG Oxyhemoglobin ABG Sodium ABG Potassium ABG Glucose Oxyhemoglobin Sodium Potassium Chloride Carbon Dioxide BUN Creatinine Glucose POC Glucose 135 H 140 H Calcium Total Protein Albumin Arterial Blood Glucose Phenytoin 10/23/20 10/24/20 10/24/20 17:50 00:08 05:22 WBC RBC Hgb Hct MCHC Lymph % (Auto) Russell % (Auto) Lymph # (Auto) Russell # (Auto) Seg Neutrophils % Seg Neuts % (Manual) Lymphocytes % (Manual) Seg Neutrophils # Seg Neutrophils # Man Lymphocytes # (Manual) ABG pH POC ABG pCO2 POC ABG pO2 ABG pO2 ABG HCO3 ABG O2 Saturation ABG Base Excess ABG Hemoglobin ABG Oxyhemoglobin ABG Sodium ABG Potassium ABG Glucose Oxyhemoglobin Sodium Potassium Chloride Carbon Dioxide BUN Creatinine Glucose POC Glucose 121 H 131 H 132 H Calcium Total Protein Albumin Arterial Blood Glucose Phenytoin 10/24/20 10/24/20 10/24/20 10:10 10:10 11:23 WBC RBC 3.61 L Hgb Hct MCHC Lymph % (Auto) 8.9 L Russell % (Auto) 10.4 H Lymph # (Auto) 0.9 L Russell # (Auto) 1.0 H Seg Neutrophils % 78.3 H Seg Neuts % (Manual) Lymphocytes % (Manual) Seg Neutrophils # 7.8 H Seg Neutrophils # Man Lymphocytes # (Manual) ABG pH POC ABG pCO2 POC ABG pO2 ABG pO2 ABG HCO3 ABG O2 Saturation ABG Base Excess ABG Hemoglobin ABG Oxyhemoglobin ABG Sodium ABG Potassium ABG Glucose Oxyhemoglobin Sodium 146 H Potassium Chloride 115.8 H Carbon Dioxide BUN 40 H Creatinine Glucose 139 H POC Glucose 121 H Calcium Total Protein 6.2 L Albumin 2.9 L Arterial Blood Glucose Phenytoin Allied health notes reviewed: nursing
--- NOTE | 2020-10-24 17:28 | Progress Note ---
Assessment and Plan The high probability of a clinically significant, sudden or life threatening deterioration of the [cardiac, pulmonary, renal] system(s) required my full and direct attention, intervention and personal management. The aggregate critical care time was [35] minutes. This time is in addition to time spent performing reported procedures but includes the following: [x] Data Review and interpretation [x] Patient assessment and monitoring of vital signs [x] Documentation [x] Medication orders and management (1) Acute respiratory failure Current Visit: Yes Status: Acute Qualifiers: Respiratory failure complication: hypoxia Qualified Code(s): J96.01 - Acute respiratory failure with hypoxia Plan to address problem: Patient intubated and on ventilatory support, daily spontaneous breathing trials, sedation holiday, wean vent as tolerated, critical care team consulted. (2) Status epilepticus Current Visit: Yes Status: Acute Plan to address problem: Supportive care. Seizure precautions, Keppra 1 g IV in the emergency department, Keppra 500 mg twice daily. Teleneurology consulted. Started on for fosphenytoin sodium 500 mg IV Neurology consult appreciated (3) Hypertensive emergency Current Visit: Yes Status: Acute Plan to address problem: Monitor blood pressure every shift, continue IV hydralazine, (4) Acute encephalopathy Current Visit: Yes Status: Acute Plan to address problem: CT head, neuro check, seizure precautions, aspiration precautions, (5) Leukocytosis Current Visit: Yes Status: Acute Plan to address problem: Chest x-ray, CBC, urinalysis, empiric IV antibiotic therapy x1 dose, repeat CBC in a.m. (6) DVT prophylaxis Current Visit: Yes Status: Acute Plan to address problem: SCD to bilateral lower extremities while in bed, prophylactic anticoagulation (7) Advance care planning Current Visit: Yes Status: Acute Plan to address problem: Disease education conducted, patient is full code, prognosis discussed, +30 minutes. Subjective Date of service: 10/24/20 Principal diagnosis: Ac hypoxemic & hypercapnic resp failure; Status epilepticus; HTNsive emerge Interval history: 65 YO Female with Obesity, HTN, presents to ED for evaluation. Patient is intubated and on ventilatory support at the time of my evaluation and is unable to provide history. Patient history is taken from EMS staff, ED staff. As per staff the patient was found down and unresponsive by her neighbor. Patient neighbor describe seizure-like activity. EMS was notified and upon arrival the patient was found to be in distress and actively seizing. Patient treated with 2 mg of Ativan which terminated the seizures. The patient was subsequently transported to [facility] for further evaluation and care of the aforementioned symptoms. Patient was seen and evaluated in the emergency department. All lab and imaging studies reviewed. Patient found to have symptoms consistent with status epilepticus which was evidenced by recurrent seizures in the emergency department with concomitant decrease in pulse oximetry to 84% on room air. The patient was also found to have hypertensive emergency with a blood pressure of 223/143. The patient was deemed unable to protect her airway and was intubated for airway protection. Patient also found to have acute encephalopathy. Patient admitted to ICU due to increased risk of decompensation. Critical care team consulted in ED. No prior admission for review. No medication listed at time of admission for reconciliation. Advanced care planning conducted in ED. Objective - Constitutional Vitals: Vital Signs - 12hr 10/24/20 10/24/20 10/24/20 05:30 05:46 06:00 Temperature Pulse Rate 97 H 69 96 H Pulse Rate [ From Monitor] Respiratory 24 29 H 23 Rate Blood Pressure 109/43 152/84 186/93 O2 Sat by Pulse 97 97 98 Oximetry 10/24/20 10/24/20 10/24/20 06:16 06:30 06:45 Temperature Pulse Rate 83 78 62 Pulse Rate [ From Monitor] Respiratory 22 20 20 Rate Blood Pressure 96/36 79/42 94/43 O2 Sat by Pulse 96 96 97 Oximetry 10/24/20 10/24/20 10/24/20 07:00 07:16 07:30 Temperature Pulse Rate 76 83 63 Pulse Rate [ From Monitor] Respiratory 20 26 H 25 H Rate Blood Pressure 78/43 145/68 145/68 O2 Sat by Pulse 97 99 99 Oximetry 10/24/20 10/24/20 10/24/20 07:46 08:00 08:12 Temperature 98.9 F Pulse Rate 64 61 95 H Pulse Rate [ 60 From Monitor] Respiratory 26 H 28 H 28 H Rate Blood Pressure 157/82 157/82 148/86 O2 Sat by Pulse 97 98 97 Oximetry 10/24/20 10/24/20 10/24/20 08:15 08:30 08:46 Temperature Pulse Rate 94 H 62 59 L Pulse Rate [ From Monitor] Respiratory 29 H 20 27 H Rate Blood Pressure 150/82 150/82 154/67 O2 Sat by Pulse 97 97 98 Oximetry 10/24/20 10/24/20 10/24/20 09:00 09:15 09:30 Temperature Pulse Rate 62 84 93 H Pulse Rate [ From Monitor] Respiratory 31 H 22 31 H Rate Blood Pressure 154/67 142/69 150/128 O2 Sat by Pulse 98 98 98 Oximetry 10/24/20 10/24/20 10/24/20 09:45 10:00 10:15 Temperature Pulse Rate 90 60 59 L Pulse Rate [ From Monitor] Respiratory 26 H 21 21 Rate Blood Pressure 160/81 160/81 94/38 O2 Sat by Pulse 97 97 97 Oximetry 10/24/20 10/24/20 10/24/20 10:30 10:45 11:00 Temperature Pulse Rate 71 71 79 Pulse Rate [ From Monitor] Respiratory 20 21 27 H Rate Blood Pressure 78/40 84/36 125/67 O2 Sat by Pulse 97 97 99 Oximetry 10/24/20 10/24/20 10/24/20 11:15 11:30 11:45 Temperature Pulse Rate 70 75 76 Pulse Rate [ From Monitor] Respiratory 20 21 Rate Blood Pressure 84/37 100/39 105/52 O2 Sat by Pulse 98 99 98 Oximetry 10/24/20 10/24/20 10/24/20 12:00 12:15 12:24 Temperature 98.6 F Pulse Rate 71 71 84 Pulse Rate [ 87 From Monitor] Respiratory 20 20 28 H Rate Blood Pressure 88/36 89/47 89/47 O2 Sat by Pulse 98 98 99 Oximetry 10/24/20 10/24/20 10/24/20 12:30 12:45 13:00 Temperature Pulse Rate 88 95 H 91 H Pulse Rate [ From Monitor] Respiratory 26 H 32 H 28 H Rate Blood Pressure 89/47 158/94 155/96 O2 Sat by Pulse 98 99 98 Oximetry 10/24/20 10/24/20 10/24/20 13:16 13:30 13:55 Temperature Pulse Rate 85 84 80 Pulse Rate [ From Monitor] Respiratory 24 24 23 Rate Blood Pressure 124/60 139/64 O2 Sat by Pulse 98 99 99 Oximetry 10/24/20 10/24/20 10/24/20 14:00 14:15 14:30 Temperature Pulse Rate 80 83 88 Pulse Rate [ From Monitor] Respiratory 25 H 28 H 29 H Rate Blood Pressure 157/73 157/73 O2 Sat by Pulse 99 99 98 Oximetry 10/24/20 10/24/20 10/24/20 14:45 15:00 15:15 Temperature Pulse Rate 79 87 81 Pulse Rate [ From Monitor] Respiratory 21 33 H 25 H Rate Blood Pressure 120/56 120/56 129/62 O2 Sat by Pulse 99 99 99 Oximetry 10/24/20 10/24/20 10/24/20 15:30 15:45 16:00 Temperature 98.2 F Pulse Rate 73 79 87 Pulse Rate [ 74 From Monitor] Respiratory 21 30 H 27 H Rate Blood Pressure 129/62 126/69 126/69 O2 Sat by Pulse 98 98 99 Oximetry 10/24/20 10/24/20 10/24/20 16:16 16:19 16:30 Temperature Pulse Rate 94 H 92 H 92 H Pulse Rate [ From Monitor] Respiratory 29 H 28 H 28 H Rate Blood Pressure 147/97 147/97 147/97 O2 Sat by Pulse 98 98 98 Oximetry 10/24/20 10/24/20 16:45 17:00 Temperature Pulse Rate 80 70 Pulse Rate [ From Monitor] Respiratory 23 19 Rate Blood Pressure 129/63 129/63 O2 Sat by Pulse 99 98 Oximetry General appearance: Present: no acute distress, well-nourished - EENT Eyes: PERRL, EOM intact ENT: hearing intact, clear oral mucosa Ears: bilateral: normal - Neck Neck: supple, normal ROM - Respiratory Respiratory effort: normal Respiratory: bilateral: CTA - Breasts Breasts: normal - Cardiovascular Rhythm: regular Heart Sounds: Present: S1 & S2. Absent: gallop, rub Extremities: pulses intact, No edema, normal color, Full ROM - Gastrointestinal General gastrointestinal: Present: soft, non-tender, non-distended, normal bowel sounds - Genitourinary Female genitourinary: normal - Integumentary Integumentary: clear, warm, dry - Musculoskeletal Musculoskeletal: 1, strength equal bilaterally - Neurologic Neurologic: moves all extremities - Psychiatric Psychiatric: memory intact, appropriate mood/affect, intact judgment & insight - Labs CBC & Chem 7: 10/30/20 07:53 10/30/20 07:53 Labs: Abnormal lab results 10/23/20 10/24/20 10/24/20 Range/Units 17:50 00:08 05:22 RBC (3.65-5.03) M/mm3 Lymph % (Auto) (13.4-35.0) % Bertie % (Auto) (0.0-7.3) % Lymph # (Auto) (1.2-5.4) K/mm3 Bertie # (Auto) (0.0-0.8) K/mm3 Seg Neutrophils % (40.0-70.0) % Seg Neutrophils # (1.8-7.7) K/mm3 Sodium (137-145) mmol/L Chloride (98-107) mmol/L BUN (7-17) mg/dL Glucose (65-100) mg/dL POC Glucose 121 H 131 H 132 H (70-105) mg/dL Total Protein (6.3-8.2) g/dL Albumin (3.9-5) g/dL 10/24/20 10/24/20 10/24/20 Range/Units 10:10 10:10 11:23 RBC 3.61 L (3.65-5.03) M/mm3 Lymph % (Auto) 8.9 L (13.4-35.0) % Bertie % (Auto) 10.4 H (0.0-7.3) % Lymph # (Auto) 0.9 L (1.2-5.4) K/mm3 Bertie # (Auto) 1.0 H (0.0-0.8) K/mm3 Seg Neutrophils % 78.3 H (40.0-70.0) % Seg Neutrophils # 7.8 H (1.8-7.7) K/mm3 Sodium 146 H (137-145) mmol/L Chloride 115.8 H (98-107) mmol/L BUN 40 H (7-17) mg/dL Glucose 139 H (65-100) mg/dL POC Glucose 121 H (70-105) mg/dL Total Protein 6.2 L (6.3-8.2) g/dL Albumin 2.9 L (3.9-5) g/dL HEART Score - HEART Score Troponin: Troponin T 0.015 ng/mL (0.00-0.029) 10/14/20 13:36
--- NOTE | 2020-10-24 21:01 | XRay Report ---
ABDOMEN 3 VIEW(S) INDICATION / CLINICAL INFORMATION: Clinton's, assess progression. COMPARISON: Abdomen 10/23/2020 FINDINGS: TUBES / LINES: NG tube again noted in body of stomach. BOWEL GAS PATTERN: Marked colonic and moderate small bowel gaseous distention, slightly improved sinc e prior study FREE AIR / EXTRALUMINAL GAS: None seen. ADDITIONAL FINDINGS: No significant additional findings. IMPRESSION: 1. Resolving ileus Signer Name: Claus Bowden MD Signed: 10/24/2020 8:56 PM Workstation Name: [id number]
[2020-10-24] MEDS: POLYETHYLENE GLYCOL 3350 17 GM POWDER PO SCH (22:05)
[2020-10-25] MEDS: PHENYTOIN IV SCH ×3 (02:10→17:18)
[2020-10-25] MEDS: SODIUM CHLORIDE 0.9% IV SCH ×3 (02:10→17:18)
[2020-10-25] MEDS: LACOSAMIDE 200 MG in SODIUM CHLORIDE 0.9% 100 ML IV SCH ×2 (03:05→15:32)
[2020-10-25] MEDS: METOCLOPRAMIDE 10 MG/2 ML INJ IV SCH ×5 (03:08→21:45)
--- NOTE | 2020-10-25 09:16 | Discharge Summary ---
Providers - Providers Date of Admission: 10/14/20 14:49 Date of discharge: 11/04/20 Attending physician: TERRY FORREST 10/14/20 14:49 Consult to Physician [CONS] Routine Comment: Consulting Provider: KATE BOSS Physician Instructions: Reason For Exam: Respiratory Failure on vent,status epilepticus 10/14/20 18:23 Consult to Dietitian/Nutrition [CONS] Routine Physician Instructions: Reason For Exam: Reason for Consult: Evaluate nutritional intake 10/14/20 18:24 Consult to Dietitian/Nutrition [CONS] Routine Physician Instructions: Reason For Exam: Reason for Consult: Write/Manage Tube Feeding 10/17/20 09:56 Consult to Dietitian/Nutrition [CONS] Routine Physician Instructions: Assess nutrtn needs, initiate, modify, manage TF Reason For Exam: Reason for Consult: Write/Manage Tube Feeding Reason for Consult: Write/Manage Tube Feeding 10/17/20 10:58 Consult to Physician [CONS] Urgent Comment: Consulting Provider: MIRELLA PARTIDA Physician Instructions: Reason For Exam: status epilepticus 10/21/20 13:19 Consult to Physician [CONS] Urgent Comment: Consulting Provider: MARIUM HARRIS Physician Instructions: Reason For Exam: Bowel obstruction ? Sigmoid Volvulus Primary care physician: CERTIFIED MED[facility] ASST Hospitalization Condition: Critical Disposition: DC/[place]-03 [facility] CERT Exam - Constitutional Vitals: Temp Pulse Resp BP Pulse Ox 101.0 F H 108 H 32 H 182/103 97 10/25/20 08:00 10/25/20 08:00 10/25/20 08:00 10/25/20 08:00 10/25/20 08:00 Plan Follow up with: PRIMARY CARE, [Primary Care Provider] - 7 Days Prescriptions: Min Oil/Petrolatum [Artificial Tears Ophth Oint] 1 applic OU Q4HR PRN #1 tube PRN Reason: Dry Eye(S) Phenytoin [Dilantin] 200 mg PO Q8HR #90 capsule.er levETIRAcetam [Keppra TAB] 1,500 mg PO BID #60 tablet Famotidine [Pepcid] 20 mg PO BID #60 tablet QUEtiapine [SEROquel] 100 mg PO QHS #30 tablet Lacosamide [Vimpat] 200 mg PO Q12HR #60 tablet
[2020-10-25] MEDS: HEPARIN 5,000 UNIT/1 ML VIAL SUB-Q SCH ×2 (10:12→21:40)
[2020-10-25] MEDS: LORazepam 2 MG/ML VIAL IV PRN ×2 (10:12→17:19)
[2020-10-25] MEDS: DOCUSATE SODIUM 100 MG/10 ML ORAL LIQD PO SCH ×2 (10:13→21:44)
[2020-10-25] MEDS: FAMOTIDINE 20 MG TAB PO SCH ×2 (10:13→21:53)
[2020-10-25] MEDS: QUEtiapine 200 MG TAB PO SCH ×2 (10:13→21:44)
[2020-10-25] MEDS: levETIRAcetam 1,500 MG in DEXTROSE 5% IN WATER 100 ML IV SCH ×2 (10:24→21:43)
[2020-10-25] MEDS: SODIUM CHLORIDE 0.9% 1000 ML 1,000 ML IV SCH ×2 (11:32→21:54)
[2020-10-25] MEDS: ACETAMINOPHEN 325 MG/10.15 ML ORAL LIQD UNIT DOSE FEEDTUBE PRN (11:32)
--- NOTE | 2020-10-25 13:06 | Progress Note ---
Assessment and Plan Acute hypoxemic and hypercapnic respiratory failure. Acute encephalopathy (Toxic / metabolic). Status epilepticus. Hypertensive emergency at presentation. History of a brain aneurysm repair. Obesity. History of hypertension. Leukocytosis. Mild hyponatremia. Hyperglycemia. - tentatively to transfer to [facility] today - will keep intubated in light of transfer and delay trial of extubation - follow further GI recommendations - continue bowel regimen - continue to rest on AC overnight - continue care as below otherwise; - continue low dose reglan - continue bowel regimen with colace & miralax - continue daily SAT's and SBT assessment as tolerated - continue Vimpat & Keppra (Adjust per neurologist) - continue enteral nutrition at goal rate as tolerated - continue Seroquel 200 mg p.o. bid to spare IV sedatives - continue to wean supplemental oxygen for target O2 sat's > 92% acutely - VAP bundle addressed - continue lung protective strategies - continue bronchodilators with pulmonary hygiene per RT - wean per pulmonary driven protocols otherwise - sedation prn for target RASS -1 to -2 - begin enteral nutritional support at goal rate as tolerated - empiric AB's coverage per ID rec's otherwise - accuchecks with glycemic control per SSI (While critically ill target blood glucose of 140-180 mg/dL; avoid hypoglycemia) - avoid nephrotoxins, renally dose all medications - continue Keppra as AED - continue to avoid benzodiazepine's, reduce the possibility of delirium - prn analgesia per CPOT score - Maintenance of sleep-wake cycle, avoid delirium - continue to avoid benzodiazepine's, reduce the possibility of delirium - aspiration precautions - G.I. & VTE prophylaxis - PT/OT/ROM exercises - continue mobility protocols for pressure ulcer prophylaxis - Monitor hemodynamics closely - continue other care per attending / other consultants - discharge planning ongoing concurrently .... Re-evaluate in am & prn CONDITION: CRITICAL PROGNOSIS: GUARDED CODE STATUS: FULL CODE The high probability of a clinically significant, sudden or life-threatening deterioration of the [respiratory, cardiovascular & neurologic] system(s) required my full and direct attention, intervention and personal management. The aggregate critical care time was [36] minutes without overlap. Time includes spent on; [x] Data Review and interpretation [x] Patient assessment and monitoring of vital signs [x] Documentation [x] Medication orders and management Subjective Date of service: 10/25/20 Principal diagnosis: Ac hypoxemic & hypercapnic resp failure; Status epilepticus; HTNsive emerge Interval history: Patient is seen today for: Ac hypoxemic and hypercapnic resp failure; Ac. encephalopathy; Status epilepticus; HTNsive emergency; History of a brain aneurysm repair; Obesity Seen and examined at bedside; 24hour events reviewed; nursing and respiratory care staff consulted; no adverse overnight events reported to me; resting peacefully in bed; on PSV trial but tolerating tenuously at times; appears to nod head to deny pain; No emesis or overt aspiration and afebrile Objective Vital Signs - 12hr 10/25/20 10/25/20 10/25/20 01:16 01:30 01:46 Temperature Pulse Rate 96 H 99 H 99 H Pulse Rate [ From Monitor] Respiratory 30 H 30 H 30 H Rate Blood Pressure 154/81 154/81 154/81 O2 Sat by Pulse 98 97 98 Oximetry 10/25/20 10/25/20 10/25/20 02:00 02:16 02:30 Temperature Pulse Rate 101 H 99 H 98 H Pulse Rate [ From Monitor] Respiratory 31 H 29 H 25 H Rate Blood Pressure 154/81 185/127 185/127 O2 Sat by Pulse 98 98 98 Oximetry 10/25/20 10/25/20 10/25/20 02:45 03:00 03:10 Temperature Pulse Rate 91 H 88 88 Pulse Rate [ From Monitor] Respiratory 22 21 Rate Blood Pressure 185/127 185/127 110/51 O2 Sat by Pulse 97 96 97 Oximetry 10/25/20 10/25/20 10/25/20 03:16 03:30 03:46 Temperature Pulse Rate 97 H 87 94 H Pulse Rate [ From Monitor] Respiratory 30 H 18 26 H Rate Blood Pressure 110/51 110/51 110/51 O2 Sat by Pulse 97 97 98 Oximetry 10/25/20 10/25/20 10/25/20 03:50 04:00 04:16 Temperature 98.9 F Pulse Rate 89 86 Pulse Rate [ 74 From Monitor] Respiratory 22 23 Rate Blood Pressure 110/51 147/78 O2 Sat by Pulse 97 97 Oximetry 10/25/20 10/25/20 10/25/20 04:30 04:46 05:00 Temperature Pulse Rate 91 H 81 91 H Pulse Rate [ From Monitor] Respiratory 25 H 22 28 H Rate Blood Pressure 147/78 147/78 147/78 O2 Sat by Pulse 98 97 98 Oximetry 10/25/20 10/25/20 10/25/20 05:16 05:30 05:46 Temperature Pulse Rate 94 H 92 H 99 H Pulse Rate [ From Monitor] Respiratory 26 H 26 H 24 Rate Blood Pressure 151/80 151/80 151/80 O2 Sat by Pulse 99 98 99 Oximetry 10/25/20 10/25/20 10/25/20 06:00 06:16 06:30 Temperature Pulse Rate 95 H 104 H 106 H Pulse Rate [ From Monitor] Respiratory 18 31 H 29 H Rate Blood Pressure 151/80 153/74 153/74 O2 Sat by Pulse 99 98 98 Oximetry 10/25/20 10/25/20 10/25/20 06:46 07:00 07:16 Temperature Pulse Rate 105 H 107 H 107 H Pulse Rate [ From Monitor] Respiratory 29 H 21 30 H Rate Blood Pressure 153/74 153/74 185/152 O2 Sat by Pulse 98 98 98 Oximetry 10/25/20 10/25/20 10/25/20 07:30 07:46 07:49 Temperature Pulse Rate 110 H 109 H 108 H Pulse Rate [ From Monitor] Respiratory 32 H 30 H 34 H Rate Blood Pressure 185/152 185/152 182/103 O2 Sat by Pulse 99 97 97 Oximetry 10/25/20 10/25/20 10/25/20 08:00 08:16 08:30 Temperature 101.0 F H Pulse Rate 108 H 108 H 108 H Pulse Rate [ 102 H From Monitor] Respiratory 34 H 32 H 35 H Rate Blood Pressure 182/103 187/99 187/99 O2 Sat by Pulse 98 98 97 Oximetry 10/25/20 10/25/20 10/25/20 08:46 09:00 09:16 Temperature Pulse Rate 111 H 110 H 106 H Pulse Rate [ From Monitor] Respiratory 36 H 34 H 31 H Rate Blood Pressure 187/99 187/99 183/100 O2 Sat by Pulse 97 97 97 Oximetry 10/25/20 10/25/20 10/25/20 09:30 09:45 10:00 Temperature Pulse Rate 97 H 104 H 107 H Pulse Rate [ From Monitor] Respiratory 26 H 30 H 37 H Rate Blood Pressure 183/100 183/100 183/100 O2 Sat by Pulse 97 98 98 Oximetry 10/25/20 10/25/20 10/25/20 10:16 10:30 10:46 Temperature Pulse Rate 111 H 107 H 98 H Pulse Rate [ From Monitor] Respiratory 38 H 36 H 26 H Rate Blood Pressure 183/100 183/100 189/156 O2 Sat by Pulse 98 98 96 Oximetry 10/25/20 10/25/20 10/25/20 11:00 11:10 11:16 Temperature 101.5 F H Pulse Rate 100 H 95 H Pulse Rate [ From Monitor] Respiratory 26 H 21 Rate Blood Pressure 189/156 131/66 O2 Sat by Pulse 96 97 Oximetry 10/25/20 10/25/20 10/25/20 11:30 11:33 11:46 Temperature Pulse Rate 92 H 91 H 90 Pulse Rate [ From Monitor] Respiratory 26 H 25 H 22 Rate Blood Pressure 131/66 131/66 131/66 O2 Sat by Pulse 97 96 97 Oximetry 10/25/20 10/25/20 10/25/20 12:00 12:16 12:31 Temperature 101.5 F H 100 F H Pulse Rate 94 H 87 Pulse Rate [ 80 From Monitor] Respiratory 22 27 H Rate Blood Pressure 131/66 126/59 O2 Sat by Pulse 96 97 Oximetry Constitutional: appears uncomfortable, other (elderly obese female without significant patient / ventilator dyssynchrony) Eyes: non-icteric ENT: oropharynx moist, other (ETT 24 cm NATIVIDAD) Neck: supple, no lymphadenopathy, no JVD Effort: mildly labored Ascultation: Bilateral: diminished breath sounds, rhonchi (scant) Percussion: Bilateral: not dull Cardiovascular: regular rate and rhythm Gastrointestinal: normoactive bowel sounds, soft, non-tender, other (Distended, firm) Integumentary: normal Extremities: no cyanosis, no edema, pink and warm, pulses normal Neurologic: non-focal exam (grossly), pupils equal and round, other (sedated but appears to respond appropriately to simple questions) Psychiatric: other (sedated) CBC and BMP: 10/24/20 10:10 10/24/20 10:10 ABG, PT/INR, D-dimer: ABG ABG pH 7.393 (7.320-7.450) 10/21/20 13:43 POC ABG pCO2 34.4 mmHg (32.0-48.0) 10/21/20 13:43 ABG pCO2 46.2 mm Hg 10/19/20 04:55 POC ABG pO2 79.6 mmHg (83-108) L 10/21/20 13:43 ABG pO2 84.7 mm Hg (80.0-90.0) 10/19/20 04:55 POC ABG HCO3 20.5 10/21/20 13:43 ABG O2 Saturation 96.7 % (95.0-99.0) 10/19/20 04:55 PT/INR, D-dimer PT 14.0 Sec. (12.2-14.9) 10/14/20 13:36 INR 1.07 (0.87-1.13) 10/14/20 13:36 Abnormal lab findings: Abnormal Labs 10/14/20 10/14/20 10/14/20 13:36 13:36 14:22 WBC 14.7 H RBC Hgb Hct MCHC 35 H Lymph % (Auto) [place] % (Auto) Lymph # (Auto) [place] # (Auto) Seg Neutrophils % Seg Neuts % (Manual) 89.0 H Lymphocytes % (Manual) 4.0 L Seg Neutrophils # Seg Neutrophils # Man 13.1 H Lymphocytes # (Manual) 0.6 L ABG pH 7.298 L POC ABG pCO2 POC ABG pO2 ABG pO2 285.8 H ABG HCO3 ABG O2 Saturation 99.5 H ABG Base Excess -4.1 L ABG Hemoglobin ABG Oxyhemoglobin ABG Sodium ABG Potassium ABG Glucose Oxyhemoglobin Sodium 131 L Potassium Chloride 97.2 L Carbon Dioxide BUN Creatinine Glucose 170 H POC Glucose Calcium Total Protein Albumin Arterial Blood Glucose Phenytoin 10/14/20 10/15/20 10/15/20 17:09 03:35 04:33 WBC RBC Hgb Hct MCHC 36 H Lymph % (Auto) 9.6 L [place] % (Auto) 10.1 H Lymph # (Auto) 1.0 L [place] # (Auto) 1.1 H Seg Neutrophils % 79.8 H Seg Neuts % (Manual) Lymphocytes % (Manual) Seg Neutrophils # 8.4 H Seg Neutrophils # Man Lymphocytes # (Manual) ABG pH 7.536 H POC ABG pCO2 POC ABG pO2 ABG pO2 185.0 H 110.2 H ABG HCO3 ABG O2 Saturation 99.2 H ABG Base Excess ABG Hemoglobin ABG Oxyhemoglobin ABG Sodium ABG Potassium ABG Glucose Oxyhemoglobin Sodium Potassium Chloride Carbon Dioxide BUN Creatinine Glucose POC Glucose Calcium Total Protein Albumin Arterial Blood Glucose Phenytoin 10/15/20 10/15/20 10/16/20 04:33 13:12 00:09 WBC RBC Hgb Hct MCHC Lymph % (Auto) [place] % (Auto) Lymph # (Auto) [place] # (Auto) Seg Neutrophils % Seg Neuts % (Manual) Lymphocytes % (Manual) Seg Neutrophils # Seg Neutrophils # Man Lymphocytes # (Manual) ABG pH 7.297 L POC ABG pCO2 51.0 H POC ABG pO2 56.7 L ABG pO2 ABG HCO3 ABG O2 Saturation ABG Base Excess ABG Hemoglobin ABG Oxyhemoglobin 84.6 L ABG Sodium 134.4 L ABG Potassium ABG Glucose 118 H Oxyhemoglobin Sodium Potassium Chloride Carbon Dioxide BUN Creatinine Glucose 120 H POC Glucose 114 H Calcium Total Protein Albumin Arterial Blood Glucose 118 H Phenytoin 10/16/20 10/16/20 10/17/20 05:42 05:46 04:08 WBC RBC Hgb Hct MCHC Lymph % (Auto) [place] % (Auto) Lymph # (Auto) [place] # (Auto) Seg Neutrophils % Seg Neuts % (Manual) Lymphocytes % (Manual) Seg Neutrophils # Seg Neutrophils # Man Lymphocytes # (Manual) ABG pH POC ABG pCO2 POC ABG pO2 ABG pO2 96.6 H ABG HCO3 ABG O2 Saturation ABG Base Excess ABG Hemoglobin ABG Oxyhemoglobin ABG Sodium 132.6 L ABG Potassium ABG Glucose 112 H Oxyhemoglobin Sodium Potassium Chloride Carbon Dioxide BUN Creatinine Glucose POC Glucose 106 H Calcium Total Protein Albumin Arterial Blood Glucose 112 H Phenytoin 10/17/20 10/17/20 10/17/20 09:23 09:23 10:46 WBC 12.3 H RBC Hgb Hct MCHC Lymph % (Auto) [place] % (Auto) Lymph # (Auto) [place] # (Auto) Seg Neutrophils % Seg Neuts % (Manual) Lymphocytes % (Manual) Seg Neutrophils # Seg Neutrophils # Man Lymphocytes # (Manual) ABG pH POC ABG pCO2 POC ABG pO2 71.6 L ABG pO2 ABG HCO3 ABG O2 Saturation ABG Base Excess ABG Hemoglobin ABG Oxyhemoglobin 92.6 L ABG Sodium 134.8 L ABG Potassium ABG Glucose 105 H Oxyhemoglobin Sodium Potassium Chloride Carbon Dioxide 21 L BUN 19 H Creatinine Glucose POC Glucose Calcium Total Protein Albumin Arterial Blood Glucose 105 H Phenytoin 10/17/20 10/18/20 10/18/20 23:43 04:18 08:32 WBC RBC Hgb Hct MCHC Lymph % (Auto) [place] % (Auto) Lymph # (Auto) [place] # (Auto) Seg Neutrophils % Seg Neuts % (Manual) Lymphocytes % (Manual) Seg Neutrophils # Seg Neutrophils # Man Lymphocytes # (Manual) ABG pH POC ABG pCO2 POC ABG pO2 81.9 L ABG pO2 ABG HCO3 ABG O2 Saturation ABG Base Excess ABG Hemoglobin ABG Oxyhemoglobin ABG Sodium 133.3 L ABG Potassium ABG Glucose 125 H Oxyhemoglobin Sodium Potassium Chloride Carbon Dioxide BUN Creatinine Glucose POC Glucose 118 H Calcium Total Protein Albumin Arterial Blood Glucose 125 H Phenytoin 7.1 L 10/18/20 10/18/20 10/18/20 08:32 08:32 12:34 WBC RBC Hgb Hct MCHC Lymph % (Auto) 12.4 L [place] % (Auto) Lymph # (Auto) [place] # (Auto) Seg Neutrophils % 77.0 H Seg Neuts % (Manual) Lymphocytes % (Manual) Seg Neutrophils # Seg Neutrophils # Man Lymphocytes # (Manual) ABG pH POC ABG pCO2 POC ABG pO2 ABG pO2 ABG HCO3 ABG O2 Saturation ABG Base Excess ABG Hemoglobin ABG Oxyhemoglobin ABG Sodium ABG Potassium ABG Glucose Oxyhemoglobin Sodium 135 L Potassium Chloride Carbon Dioxide BUN 21 H Creatinine Glucose 131 H POC Glucose 121 H Calcium Total Protein Albumin Arterial Blood Glucose Phenytoin 10/18/20 10/18/20 10/19/20 18:12 23:47 04:55 WBC RBC Hgb Hct MCHC Lymph % (Auto) [place] % (Auto) Lymph # (Auto) [place] # (Auto) Seg Neutrophils % Seg Neuts % (Manual) Lymphocytes % (Manual) Seg Neutrophils # Seg Neutrophils # Man Lymphocytes # (Manual) ABG pH POC ABG pCO2 POC ABG pO2 ABG pO2 ABG HCO3 27.1 H ABG O2 Saturation ABG Base Excess ABG Hemoglobin 11.1 L ABG Oxyhemoglobin ABG Sodium ABG Potassium ABG Glucose Oxyhemoglobin 94.9 L Sodium Potassium Chloride Carbon Dioxide BUN Creatinine Glucose POC Glucose 133 H 142 H Calcium Total Protein Albumin Arterial Blood Glucose Phenytoin 1110/19/20 10/19/20 06:02 07:59 12:35 WBC RBC Hgb Hct MCHC Lymph % (Auto) [place] % (Auto) Lymph # (Auto) [place] # (Auto) Seg Neutrophils % Seg Neuts % (Manual) Lymphocytes % (Manual) Seg Neutrophils # Seg Neutrophils # Man Lymphocytes # (Manual) ABG pH POC ABG pCO2 POC ABG pO2 ABG pO2 ABG HCO3 ABG O2 Saturation ABG Base Excess ABG Hemoglobin ABG Oxyhemoglobin ABG Sodium ABG Potassium ABG Glucose Oxyhemoglobin Sodium Potassium Chloride Carbon Dioxide BUN Creatinine Glucose 144 H POC Glucose 143 H 132 H Calcium Total Protein Albumin Arterial Blood Glucose Phenytoin 10/19/20 10/19/20 10/19/20 16:12 16:31 23:17 WBC RBC Hgb Hct MCHC Lymph % (Auto) [place] % (Auto) Lymph # (Auto) [place] # (Auto) Seg Neutrophils % Seg Neuts % (Manual) Lymphocytes % (Manual) Seg Neutrophils # Seg Neutrophils # Man Lymphocytes # (Manual) ABG pH 7.461 H POC ABG pCO2 POC ABG pO2 75.8 L ABG pO2 ABG HCO3 ABG O2 Saturation ABG Base Excess ABG Hemoglobin ABG Oxyhemoglobin ABG Sodium 134.0 L ABG Potassium ABG Glucose 156 H Oxyhemoglobin Sodium Potassium Chloride Carbon Dioxide BUN Creatinine Glucose POC Glucose 120 H 128 H Calcium Total Protein Albumin Arterial Blood Glucose 156 H Phenytoin 10/20/20 10/20/20 10/20/20 03:25 05:26 12:12 WBC RBC Hgb Hct MCHC Lymph % (Auto) [place] % (Auto) Lymph # (Auto) [place] # (Auto) Seg Neutrophils % Seg Neuts % (Manual) Lymphocytes % (Manual) Seg Neutrophils # Seg Neutrophils # Man Lymphocytes # (Manual) ABG pH POC ABG pCO2 POC ABG pO2 ABG pO2 ABG HCO3 ABG O2 Saturation ABG Base Excess ABG Hemoglobin ABG Oxyhemoglobin ABG Sodium 134.0 L ABG Potassium ABG Glucose 129 H Oxyhemoglobin Sodium Potassium Chloride Carbon Dioxide BUN Creatinine Glucose POC Glucose 125 H 136 H Calcium Total Protein Albumin Arterial Blood Glucose 129 H Phenytoin 10/20/20 10/21/20 10/21/20 17:58 00:09 04:14 WBC RBC Hgb Hct MCHC Lymph % (Auto) [place] % (Auto) Lymph # (Auto) [place] # (Auto) Seg Neutrophils % Seg Neuts % (Manual) Lymphocytes % (Manual) Seg Neutrophils # Seg Neutrophils # Man Lymphocytes # (Manual) ABG pH POC ABG pCO2 POC ABG pO2 ABG pO2 ABG HCO3 ABG O2 Saturation ABG Base Excess ABG Hemoglobin ABG Oxyhemoglobin ABG Sodium 134.6 L ABG Potassium 4.8 H ABG Glucose 145 H Oxyhemoglobin Sodium Potassium Chloride Carbon Dioxide BUN Creatinine Glucose POC Glucose 148 H 144 H Calcium Total Protein Albumin Arterial Blood Glucose 145 H Phenytoin 10/21/20 10/21/20 10/21/20 04:48 05:17 12:43 WBC RBC Hgb Hct MCHC Lymph % (Auto) [place] % (Auto) Lymph # (Auto) [place] # (Auto) Seg Neutrophils % Seg Neuts % (Manual) Lymphocytes % (Manual) Seg Neutrophils # Seg Neutrophils # Man Lymphocytes # (Manual) ABG pH POC ABG pCO2 POC ABG pO2 ABG pO2 ABG HCO3 ABG O2 Saturation ABG Base Excess ABG Hemoglobin ABG Oxyhemoglobin ABG Sodium ABG Potassium ABG Glucose Oxyhemoglobin Sodium Potassium 5.1 H Chloride Carbon Dioxide BUN 36 H Creatinine 1.3 H D Glucose 137 H POC Glucose 132 H 133 H Calcium Total Protein Albumin Arterial Blood Glucose Phenytoin 10/21/20 10/21/20 10/21/20 13:43 18:45 18:45 WBC 13.2 H RBC Hgb Hct MCHC Lymph % (Auto) 7.9 L [place] % (Auto) 11.1 H Lymph # (Auto) 1.1 L [place] # (Auto) 1.5 H Seg Neutrophils % 79.8 H Seg Neuts % (Manual) Lymphocytes % (Manual) Seg Neutrophils # 10.6 H Seg Neutrophils # Man Lymphocytes # (Manual) ABG pH POC ABG pCO2 POC ABG pO2 79.6 L ABG pO2 ABG HCO3 ABG O2 Saturation ABG Base Excess ABG Hemoglobin ABG Oxyhemoglobin ABG Sodium 135.8 L ABG Potassium 4.9 H ABG Glucose 155 H Oxyhemoglobin Sodium Potassium Chloride Carbon Dioxide BUN Creatinine Glucose POC Glucose Calcium Total Protein Albumin Arterial Blood Glucose 155 H Phenytoin 6.7 L 10/22/20 10/22/20 10/22/20 04:48 05:31 12:30 WBC RBC Hgb Hct MCHC Lymph % (Auto) [place] % (Auto) Lymph # (Auto) [place] # (Auto) Seg Neutrophils % Seg Neuts % (Manual) Lymphocytes % (Manual) Seg Neutrophils # Seg Neutrophils # Man Lymphocytes # (Manual) ABG pH POC ABG pCO2 POC ABG pO2 ABG pO2 ABG HCO3 ABG O2 Saturation ABG Base Excess ABG Hemoglobin ABG Oxyhemoglobin ABG Sodium ABG Potassium ABG Glucose Oxyhemoglobin Sodium Potassium Chloride Carbon Dioxide BUN Creatinine Glucose POC Glucose 124 H 124 H Calcium Total Protein Albumin Arterial Blood Glucose Phenytoin 6.6 L 10/22/20 10/23/20 10/23/20 18:04 00:09 00:16 WBC RBC Hgb Hct MCHC Lymph % (Auto) [place] % (Auto) Lymph # (Auto) [place] # (Auto) Seg Neutrophils % Seg Neuts % (Manual) Lymphocytes % (Manual) Seg Neutrophils # Seg Neutrophils # Man Lymphocytes # (Manual) ABG pH POC ABG pCO2 POC ABG pO2 ABG pO2 ABG HCO3 ABG O2 Saturation ABG Base Excess ABG Hemoglobin ABG Oxyhemoglobin ABG Sodium ABG Potassium ABG Glucose Oxyhemoglobin Sodium Potassium Chloride 109.6 H Carbon Dioxide 16 L BUN 68 H Creatinine 2.3 H D Glucose 148 H POC Glucose 130 H 149 H Calcium 8.3 L Total Protein Albumin Arterial Blood Glucose Phenytoin 10/23/20 10/23/20 10/23/20 05:33 08:07 11:43 WBC RBC 3.41 L Hgb 9.7 L Hct 29.8 L MCHC Lymph % (Auto) 9.9 L [place] % (Auto) 15.0 H Lymph # (Auto) 0.8 L [place] # (Auto) 1.2 H Seg Neutrophils % 72.5 H Seg Neuts % (Manual) Lymphocytes % (Manual) Seg Neutrophils # Seg Neutrophils # Man Lymphocytes # (Manual) ABG pH POC ABG pCO2 POC ABG pO2 ABG pO2 ABG HCO3 ABG O2 Saturation ABG Base Excess ABG Hemoglobin ABG Oxyhemoglobin ABG Sodium ABG Potassium ABG Glucose Oxyhemoglobin Sodium Potassium Chloride Carbon Dioxide BUN Creatinine Glucose POC Glucose 135 H 140 H Calcium Total Protein Albumin Arterial Blood Glucose Phenytoin 10/23/20 10/24/20 10/24/20 17:50 00:08 05:22 WBC RBC Hgb Hct MCHC Lymph % (Auto) [place] % (Auto) Lymph # (Auto) [place] # (Auto) Seg Neutrophils % Seg Neuts % (Manual) Lymphocytes % (Manual) Seg Neutrophils # Seg Neutrophils # Man Lymphocytes # (Manual) ABG pH POC ABG pCO2 POC ABG pO2 ABG pO2 ABG HCO3 ABG O2 Saturation ABG Base Excess ABG Hemoglobin ABG Oxyhemoglobin ABG Sodium ABG Potassium ABG Glucose Oxyhemoglobin Sodium Potassium Chloride Carbon Dioxide BUN Creatinine Glucose POC Glucose 121 H 131 H 132 H Calcium Total Protein Albumin Arterial Blood Glucose Phenytoin 10/24/20 10/24/20 10/24/20 10:10 10:10 11:23 WBC RBC 3.61 L Hgb Hct MCHC Lymph % (Auto) 8.9 L [place] % (Auto) 10.4 H Lymph # (Auto) 0.9 L [place] # (Auto) 1.0 H Seg Neutrophils % 78.3 H Seg Neuts % (Manual) Lymphocytes % (Manual) Seg Neutrophils # 7.8 H Seg Neutrophils # Man Lymphocytes # (Manual) ABG pH POC ABG pCO2 POC ABG pO2 ABG pO2 ABG HCO3 ABG O2 Saturation ABG Base Excess ABG Hemoglobin ABG Oxyhemoglobin ABG Sodium ABG Potassium ABG Glucose Oxyhemoglobin Sodium 146 H Potassium Chloride 115.8 H Carbon Dioxide BUN 40 H Creatinine Glucose 139 H POC Glucose 121 H Calcium Total Protein 6.2 L Albumin 2.9 L Arterial Blood Glucose Phenytoin 10/24/20 23:45 WBC RBC Hgb Hct MCHC Lymph % (Auto) [place] % (Auto) Lymph # (Auto) [place] # (Auto) Seg Neutrophils % Seg Neuts % (Manual) Lymphocytes % (Manual) Seg Neutrophils # Seg Neutrophils # Man Lymphocytes # (Manual) ABG pH POC ABG pCO2 POC ABG pO2 ABG pO2 ABG HCO3 ABG O2 Saturation ABG Base Excess ABG Hemoglobin ABG Oxyhemoglobin ABG Sodium ABG Potassium ABG Glucose Oxyhemoglobin Sodium Potassium Chloride Carbon Dioxide BUN Creatinine Glucose POC Glucose 112 H Calcium Total Protein Albumin Arterial Blood Glucose Phenytoin Chest x-ray: pending Allied health notes reviewed: nursing
--- NOTE | 2020-10-25 17:56 | Gastroenterology Progress Note ---
Assessment and Plan - Patient Problems (1) Shea syndrome Current Visit: Yes Status: Acute Subjective Date of service: 10/25/20 Principal diagnosis: Ac hypoxemic & hypercapnic resp failure; Status epilepticus; HTNsive emerge Interval history: Patient is intubated and sedated unable to talk with me Spoke with nurse reports patient had large amount of stool this morning Objective - Constitutional Vitals: Temp Pulse Resp BP Pulse Ox 100 F H 105 H 35 H 189/99 98 10/25/20 12:31 10/25/20 17:15 10/25/20 17:15 10/25/20 17:15 10/25/20 17:15 General appearance: other (Remains intubated) - Respiratory Respiratory effort: other (On ventilator) - Cardiovascular Rhythm: other (Tachycardic) - Gastrointestinal General gastrointestinal: Present: other (Mildly distended, no significant tenderness noted, decreased bowel sounds pitch slightly increased) - Labs CBC & Chem 7: 10/24/20 10:10 10/24/20 10:10 Labs: Laboratory Results - last 24 hr 10/24/20 10/25/20 10/25/20 23:45 05:00 11:34 POC Glucose 112 H 89 92 Coronavirus (PCR) 10/25/20 Unknown POC Glucose Coronavirus (PCR) Negative
--- NOTE | 2020-10-25 20:29 | XRay Report ---
ABDOMEN 1 VIEW(S) INDICATION / CLINICAL INFORMATION: [place]. COMPARISON: 10/24/2020 FINDINGS: TUBES / LINES: NG tube appears stable in position. BOWEL GAS PATTERN/EXTRALUMINAL GAS: Stable mild gaseous distention of the colon and small bowel. No p neumatosis or secondary signs of free air. ADDITIONAL FINDINGS: No significant additional findings. IMPRESSION: 1. No acute findings. No adverse change since the prior exam. Signer Name: Dio Keenan MD Signed: 10/25/2020 8:25 PM Workstation Name: [id number]
[2020-10-25] MEDS: POLYETHYLENE GLYCOL 3350 17 GM POWDER PO SCH (21:45)
[2020-10-26] MEDS: SODIUM CHLORIDE 0.9% IV SCH ×3 (01:08→18:06)
[2020-10-26] MEDS: PHENYTOIN IV SCH ×3 (01:08→18:06)
[2020-10-26] MEDS: METOCLOPRAMIDE 10 MG/2 ML INJ IV SCH ×3 (03:00→15:06)
[2020-10-26] MEDS: LACOSAMIDE 200 MG in SODIUM CHLORIDE 0.9% 100 ML IV SCH ×2 (03:59→15:12)
--- NOTE | 2020-10-26 08:13 | Progress Note ---
Assessment and Plan Acute hypoxemic and hypercapnic respiratory failure. Acute encephalopathy (Toxic / metabolic). Status epilepticus Ileus, Gates syndrome Hypertensive emergency at presentation, now hypotension. History of a brain aneurysm repair. Obesity. History of hypertension. Leukocytosis-resolved Hypernatremia Hyperglycemia. Continue to monitor hemodynamics closely Stop Precedex Get weaning parametrs, goal to liberate from MVS today CXR and ABG as clinically indicated Keep K at 4, Mag at 2 and Phos at 2.5 to optimize respiratory muscle function - continue daily SATs and SBT assessment as tolerated - continue Vimpat & Keppra (Adjust per neurologist) - continue to wean supplemental oxygen for target O2 sats > 92% - VAP bundle addressed, aspiration precautions, HOB >40 - continue lung protective strategies - continue bronchodilators with pulmonary hygiene per RT - wean per pulmonary driven protocols otherwise - sedation prn for target RASS 0 to -1 - accuchecks with glycemic control per SSI (While critically ill target blood glucose of 140-180 mg/dL; avoid hypoglycemia) - avoid nephrotoxins, renally dose all medications - continue to avoid benzodiazepines, reduce the possibility of delirium - prn analgesia per CPOT score - Maintenance of sleep-wake cycle, avoid delirium - continue to avoid benzodiazepines, reduce the possibility of delirium - Stress ulcer and VTE prophylaxis - PT/OT/ROM exercises - continue mobility protocol, off loading, frequent turning for pressure ulcer prevention - continue other care per attending / other consultants CONDITION: CRITICAL PROGNOSIS: GUARDED CODE STATUS: FULL CODE The high probability of a clinically significant, sudden or life-threatening deterioration of the [respiratory, cardiovascular & neurologic] system(s) required my full and direct attention, intervention and personal management. The aggregate critical care time was [32] minutes without overlap. Time includes spent on; [x] Data Review and interpretation [x] Patient assessment and monitoring of vital signs [x] Documentation [x] Medication orders and management Subjective Date of service: 10/26/20 Principal diagnosis: Ac hypoxemic & hypercapnic resp failure; Status epilepticus; HTNsive emerge Interval history: Patient is seen today for: Ac hypoxemic and hypercapnic resp failure; Ac. encephalopathy; Status epilepticus; HTNsive emergency; History of a brain a neurysm repair; Obesity Seen and examined at bedside; 24hour events reviewed; nursing and respiratory care staff consulted; no adverse overnight events reported to me; resting peacefully in bed; Orally intubated- Vent settings AC-VC 20/450/+6/25% Placed on PSV trials, remains on Precedex at 0.2mcg. Has had a bowel movement, abdominal exam is benign. Objective Vital Signs - 12hr 10/25/20 10/25/20 10/25/20 20:15 20:31 20:36 Temperature Pulse Rate 108 H 102 H 101 H Pulse Rate [ Apical] Pulse Rate [ From Monitor] Respiratory 15 14 Rate Blood Pressure 174/96 174/96 158/94 O2 Sat by Pulse 96 97 97 Oximetry 10/25/20 10/25/20 10/25/20 20:45 21:01 21:15 Temperature Pulse Rate 102 H 109 H 103 H Pulse Rate [ Apical] Pulse Rate [ From Monitor] Respiratory 18 19 18 Rate Blood Pressure 158/94 201/106 201/106 O2 Sat by Pulse 99 97 97 Oximetry 10/25/20 10/25/20 10/25/20 21:31 21:45 22:00 Temperature Pulse Rate 94 H 95 H 94 H Pulse Rate [ Apical] Pulse Rate [ From Monitor] Respiratory 23 17 23 Rate Blood Pressure 157/92 157/92 171/87 O2 Sat by Pulse 96 97 98 Oximetry 10/25/20 10/25/20 10/25/20 22:01 22:04 22:15 Temperature Pulse Rate 90 90 Pulse Rate [ 108 H Apical] Pulse Rate [ 108 H From Monitor] Respiratory 20 17 20 Rate Blood Pressure 171/87 171/87 O2 Sat by Pulse 98 98 94 Oximetry 10/25/20 10/25/20 10/25/20 22:31 22:45 23:01 Temperature Pulse Rate 86 82 81 Pulse Rate [ Apical] Pulse Rate [ From Monitor] Respiratory 17 21 19 Rate Blood Pressure 171/87 171/87 131/68 O2 Sat by Pulse 95 96 97 Oximetry 10/25/20 10/25/20 10/25/20 23:15 23:31 23:42 Temperature Pulse Rate 77 99 H 99 H Pulse Rate [ Apical] Pulse Rate [ From Monitor] Respiratory 17 20 Rate Blood Pressure 131/68 131/68 131/68 O2 Sat by Pulse 97 98 98 Oximetry 10/25/20 10/26/20 10/26/20 23:45 00:00 00:01 Temperature 100.1 F H Pulse Rate 95 H 89 96 H Pulse Rate [ Apical] Pulse Rate [ From Monitor] Respiratory 13 23 Rate Blood Pressure 131/68 133/97 O2 Sat by Pulse 99 99 Oximetry 10/26/20 10/26/20 10/26/20 00:15 00:31 00:45 Temperature Pulse Rate 89 90 82 Pulse Rate [ Apical] Pulse Rate [ From Monitor] Respiratory 15 25 H 15 Rate Blood Pressure 133/97 133/97 133/97 O2 Sat by Pulse 99 99 98 Oximetry 10/26/20 10/26/20 10/26/20 01:01 01:15 01:31 Temperature Pulse Rate 89 93 H 86 Pulse Rate [ Apical] Pulse Rate [ From Monitor] Respiratory 16 25 H 26 H Rate Blood Pressure 133/97 133/97 135/96 O2 Sat by Pulse 98 97 95 Oximetry 10/26/20 10/26/20 10/26/20 01:45 02:00 02:15 Temperature Pulse Rate 80 76 74 Pulse Rate [ Apical] Pulse Rate [ From Monitor] Respiratory 13 20 22 Rate Blood Pressure 135/96 140/73 140/73 O2 Sat by Pulse 95 96 95 Oximetry 10/26/20 10/26/20 10/26/20 02:31 02:45 03:00 Temperature Pulse Rate 73 74 73 Pulse Rate [ Apical] Pulse Rate [ From Monitor] Respiratory 21 19 20 Rate Blood Pressure 140/73 140/73 124/69 O2 Sat by Pulse 97 97 97 Oximetry 10/26/20 10/26/20 10/26/20 03:15 03:31 03:45 Temperature Pulse Rate 65 70 70 Pulse Rate [ Apical] Pulse Rate [ From Monitor] Respiratory 21 21 18 Rate Blood Pressure 124/69 O2 Sat by Pulse 97 97 98 Oximetry 10/26/20 10/26/20 10/26/20 03:51 03:53 04:00 Temperature 99.1 F Pulse Rate 89 Pulse Rate [ 75 Apical] Pulse Rate [ 75 From Monitor] Respiratory 26 H Rate Blood Pressure O2 Sat by Pulse 98 Oximetry 10/26/20 10/26/20 10/26/20 04:01 04:15 04:23 Temperature Pulse Rate 81 90 68 Pulse Rate [ Apical] Pulse Rate [ From Monitor] Respiratory 27 H 23 Rate Blood Pressure 177/95 177/95 124/69 O2 Sat by Pulse 99 98 97 Oximetry 10/26/20 10/26/20 10/26/20 04:31 04:45 05:00 Temperature Pulse Rate 86 86 94 H Pulse Rate [ Apical] Pulse Rate [ From Monitor] Respiratory 30 H 20 30 H Rate Blood Pressure 177/95 177/95 188/118 O2 Sat by Pulse 97 97 95 Oximetry 10/26/20 10/26/20 10/26/20 05:15 05:31 05:45 Temperature Pulse Rate 91 H 87 86 Pulse Rate [ Apical] Pulse Rate [ From Monitor] Respiratory 19 31 H 22 Rate Blood Pressure 188/118 188/118 188/118 O2 Sat by Pulse 94 94 95 Oximetry 10/26/20 10/26/20 06:01 07:54 Temperature Pulse Rate 82 75 Pulse Rate [ Apical] Pulse Rate [ From Monitor] Respiratory 17 29 H Rate Blood Pressure 183/80 152/76 O2 Sat by Pulse 99 99 Oximetry Constitutional: no acute distress, other (elderly obese female without significant patient / ventilator dyssynchrony) Eyes: non-icteric ENT: oropharynx moist, other (ETT 24 cm NATIVIDAD) Neck: supple, no lymphadenopathy, no JVD Effort: normal Ascultation: Bilateral: diminished breath sounds, rhonchi (scant) Percussion: Bilateral: not dull Cardiovascular: regular rate and rhythm Gastrointestinal: normoactive bowel sounds, soft, non-tender, other (Distended, firm) Integumentary: normal Extremities: no cyanosis, no edema, pink and warm, pulses normal Neurologic: non-focal exam (grossly), pupils equal and round, other (drifs to sleep, easily roused, obeys simple commands) Psychiatric: mood appropriate, affect normal, other (sedated) CBC and BMP: 10/24/20 10:10 10/24/20 10:10 ABG, PT/INR, D-dimer: ABG ABG pH 7.393 (7.320-7.450) 10/21/20 13:43 POC ABG pCO2 34.4 mmHg (32.0-48.0) 10/21/20 13:43 ABG pCO2 46.2 mm Hg 10/19/20 04:55 POC ABG pO2 79.6 mmHg (83-108) L 10/21/20 13:43 ABG pO2 84.7 mm Hg (80.0-90.0) 10/19/20 04:55 POC ABG HCO3 20.5 10/21/20 13:43 ABG O2 Saturation 96.7 % (95.0-99.0) 10/19/20 04:55 PT/INR, D-dimer PT 14.0 Sec. (12.2-14.9) 10/14/20 13:36 INR 1.07 (0.87-1.13) 10/14/20 13:36 Abnormal lab findings: Abnormal Labs 10/14/20 10/14/20 10/14/20 13:36 13:36 14:22 WBC 14.7 H RBC Hgb Hct MCHC 35 H Lymph % (Auto) [place] % (Auto) Lymph # (Auto) [place] # (Auto) Seg Neutrophils % Seg Neuts % (Manual) 89.0 H Lymphocytes % (Manual) 4.0 L Seg Neutrophils # Seg Neutrophils # Man 13.1 H Lymphocytes # (Manual) 0.6 L ABG pH 7.298 L POC ABG pCO2 POC ABG pO2 ABG pO2 285.8 H ABG HCO3 ABG O2 Saturation 99.5 H ABG Base Excess -4.1 L ABG Hemoglobin ABG Oxyhemoglobin ABG Sodium ABG Potassium ABG Glucose Oxyhemoglobin Sodium 131 L Potassium Chloride 97.2 L Carbon Dioxide BUN Creatinine Glucose 170 H POC Glucose Calcium Total Protein Albumin Arterial Blood Glucose Phenytoin 10/14/20 10/15/20 10/15/20 17:09 03:35 04:33 WBC RBC Hgb Hct MCHC 36 H Lymph % (Auto) 9.6 L [place] % (Auto) 10.1 H Lymph # (Auto) 1.0 L [place] # (Auto) 1.1 H Seg Neutrophils % 79.8 H Seg Neuts % (Manual) Lymphocytes % (Manual) Seg Neutrophils # 8.4 H Seg Neutrophils # Man Lymphocytes # (Manual) ABG pH 7.536 H POC ABG pCO2 POC ABG pO2 ABG pO2 185.0 H 110.2 H ABG HCO3 ABG O2 Saturation 99.2 H ABG Base Excess ABG Hemoglobin ABG Oxyhemoglobin ABG Sodium ABG Potassium ABG Glucose Oxyhemoglobin Sodium Potassium Chloride Carbon Dioxide BUN Creatinine Glucose POC Glucose Calcium Total Protein Albumin Arterial Blood Glucose Phenytoin 10/15/20 10/15/20 10/16/20 04:33 13:12 00:09 WBC RBC Hgb Hct MCHC Lymph % (Auto) [place] % (Auto) Lymph # (Auto) [place] # (Auto) Seg Neutrophils % Seg Neuts % (Manual) Lymphocytes % (Manual) Seg Neutrophils # Seg Neutrophils # Man Lymphocytes # (Manual) ABG pH 7.297 L POC ABG pCO2 51.0 H POC ABG pO2 56.7 L ABG pO2 ABG HCO3 ABG O2 Saturation ABG Base Excess ABG Hemoglobin ABG Oxyhemoglobin 84.6 L ABG Sodium 134.4 L ABG Potassium ABG Glucose 118 H Oxyhemoglobin Sodium Potassium Chloride Carbon Dioxide BUN Creatinine Glucose 120 H POC Glucose 114 H Calcium Total Protein Albumin Arterial Blood Glucose 118 H Phenytoin 10/16/20 10/16/20 10/17/20 05:42 05:46 04:08 WBC RBC Hgb Hct MCHC Lymph % (Auto) [place] % (Auto) Lymph # (Auto) [place] # (Auto) Seg Neutrophils % Seg Neuts % (Manual) Lymphocytes % (Manual) Seg Neutrophils # Seg Neutrophils # Man Lymphocytes # (Manual) ABG pH POC ABG pCO2 POC ABG pO2 ABG pO2 96.6 H ABG HCO3 ABG O2 Saturation ABG Base Excess ABG Hemoglobin ABG Oxyhemoglobin ABG Sodium 132.6 L ABG Potassium ABG Glucose 112 H Oxyhemoglobin Sodium Potassium Chloride Carbon Dioxide BUN Creatinine Glucose POC Glucose 106 H Calcium Total Protein Albumin Arterial Blood Glucose 112 H Phenytoin 10/17/20 10/17/20 10/17/20 09:23 09:23 10:46 WBC 12.3 H RBC Hgb Hct MCHC Lymph % (Auto) [place] % (Auto) Lymph # (Auto) [place] # (Auto) Seg Neutrophils % Seg Neuts % (Manual) Lymphocytes % (Manual) Seg Neutrophils # Seg Neutrophils # Man Lymphocytes # (Manual) ABG pH POC ABG pCO2 POC ABG pO2 71.6 L ABG pO2 ABG HCO3 ABG O2 Saturation ABG Base Excess ABG Hemoglobin ABG Oxyhemoglobin 92.6 L ABG Sodium 134.8 L ABG Potassium ABG Glucose 105 H Oxyhemoglobin Sodium Potassium Chloride Carbon Dioxide 21 L BUN 19 H Creatinine Glucose POC Glucose Calcium Total Protein Albumin Arterial Blood Glucose 105 H Phenytoin 10/17/20 10/18/20 10/18/20 23:43 04:18 08:32 WBC RBC Hgb Hct MCHC Lymph % (Auto) [place] % (Auto) Lymph # (Auto) [place] # (Auto) Seg Neutrophils % Seg Neuts % (Manual) Lymphocytes % (Manual) Seg Neutrophils # Seg Neutrophils # Man Lymphocytes # (Manual) ABG pH POC ABG pCO2 POC ABG pO2 81.9 L ABG pO2 ABG HCO3 ABG O2 Saturation ABG Base Excess ABG Hemoglobin ABG Oxyhemoglobin ABG Sodium 133.3 L ABG Potassium ABG Glucose 125 H Oxyhemoglobin Sodium Potassium Chloride Carbon Dioxide BUN Creatinine Glucose POC Glucose 118 H Calcium Total Protein Albumin Arterial Blood Glucose 125 H Phenytoin 7.1 L 10/18/20 10/18/20 10/18/20 08:32 08:32 12:34 WBC RBC Hgb Hct MCHC Lymph % (Auto) 12.4 L [place] % (Auto) Lymph # (Auto) [place] # (Auto) Seg Neutrophils % 77.0 H Seg Neuts % (Manual) Lymphocytes % (Manual) Seg Neutrophils # Seg Neutrophils # Man Lymphocytes # (Manual) ABG pH POC ABG pCO2 POC ABG pO2 ABG pO2 ABG HCO3 ABG O2 Saturation ABG Base Excess ABG Hemoglobin ABG Oxyhemoglobin ABG Sodium ABG Potassium ABG Glucose Oxyhemoglobin Sodium 135 L Potassium Chloride Carbon Dioxide BUN 21 H Creatinine Glucose 131 H POC Glucose 121 H Calcium Total Protein Albumin Arterial Blood Glucose Phenytoin 10/18/20 10/18/20 10/19/20 18:12 23:47 04:55 WBC RBC Hgb Hct MCHC Lymph % (Auto) [place] % (Auto) Lymph # (Auto) [place] # (Auto) Seg Neutrophils % Seg Neuts % (Manual) Lymphocytes % (Manual) Seg Neutrophils # Seg Neutrophils # Man Lymphocytes # (Manual) ABG pH POC ABG pCO2 POC ABG pO2 ABG pO2 ABG HCO3 27.1 H ABG O2 Saturation ABG Base Excess ABG Hemoglobin 11.1 L ABG Oxyhemoglobin ABG Sodium ABG Potassium ABG Glucose Oxyhemoglobin 94.9 L Sodium Potassium Chloride Carbon Dioxide BUN Creatinine Glucose POC Glucose 133 H 142 H Calcium Total Protein Albumin Arterial Blood Glucose Phenytoin 10/19/20 10/19/20 10/19/20 06:02 07:59 12:35 WBC RBC Hgb Hct MCHC Lymph % (Auto) [place] % (Auto) Lymph # (Auto) [place] # (Auto) Seg Neutrophils % Seg Neuts % (Manual) Lymphocytes % (Manual) Seg Neutrophils # Seg Neutrophils # Man Lymphocytes # (Manual) ABG pH POC ABG pCO2 POC ABG pO2 ABG pO2 ABG HCO3 ABG O2 Saturation ABG Base Excess ABG Hemoglobin ABG Oxyhemoglobin ABG Sodium ABG Potassium ABG Glucose Oxyhemoglobin Sodium Potassium Chloride Carbon Dioxide BUN Creatinine Glucose 144 H POC Glucose 143 H 132 H Calcium Total Protein Albumin Arterial Blood Glucose Phenytoin 10/19/20 10/19/20 10/19/20 16:12 16:31 23:17 WBC RBC Hgb Hct MCHC Lymph % (Auto) [place] % (Auto) Lymph # (Auto) [place] # (Auto) Seg Neutrophils % Seg Neuts % (Manual) Lymphocytes % (Manual) Seg Neutrophils # Seg Neutrophils # Man Lymphocytes # (Manual) ABG pH 7.461 H POC ABG pCO2 POC ABG pO2 75.8 L ABG pO2 ABG HCO3 ABG O2 Saturation ABG Base Excess ABG Hemoglobin ABG Oxyhemoglobin ABG Sodium 134.0 L ABG Potassium ABG Glucose 156 H Oxyhemoglobin Sodium Potassium Chloride Carbon Dioxide BUN Creatinine Glucose POC Glucose 120 H 128 H Calcium Total Protein Albumin Arterial Blood Glucose 156 H Phenytoin 10/20/20 10/20/20 10/20/20 03:25 05:26 12:12 WBC RBC Hgb Hct MCHC Lymph % (Auto) [place] % (Auto) Lymph # (Auto) [place] # (Auto) Seg Neutrophils % Seg Neuts % (Manual) Lymphocytes % (Manual) Seg Neutrophils # Seg Neutrophils # Man Lymphocytes # (Manual) ABG pH POC ABG pCO2 POC ABG pO2 ABG pO2 ABG HCO3 ABG O2 Saturation ABG Base Excess ABG Hemoglobin ABG Oxyhemoglobin ABG Sodium 134.0 L ABG Potassium ABG Glucose 129 H Oxyhemoglobin Sodium Potassium Chloride Carbon Dioxide BUN Creatinine Glucose POC Glucose 125 H 136 H Calcium Total Protein Albumin Arterial Blood Glucose 129 H Phenytoin 10/20/20 10/21/20 10/21/20 17:58 00:09 04:14 WBC RBC Hgb Hct MCHC Lymph % (Auto) [place] % (Auto) Lymph # (Auto) [place] # (Auto) Seg Neutrophils % Seg Neuts % (Manual) Lymphocytes % (Manual) Seg Neutrophils # Seg Neutrophils # Man Lymphocytes # (Manual) ABG pH POC ABG pCO2 POC ABG pO2 ABG pO2 ABG HCO3 ABG O2 Saturation ABG Base Excess ABG Hemoglobin ABG Oxyhemoglobin ABG Sodium 134.6 L ABG Potassium 4.8 H ABG Glucose 145 H Oxyhemoglobin Sodium Potassium Chloride Carbon Dioxide BUN Creatinine Glucose POC Glucose 148 H 144 H Calcium Total Protein Albumin Arterial Blood Glucose 145 H Phenytoin 10/21/20 10/21/20 10/21/20 04:48 05:17 12:43 WBC RBC Hgb Hct MCHC Lymph % (Auto) [place] % (Auto) Lymph # (Auto) [place] # (Auto) Seg Neutrophils % Seg Neuts % (Manual) Lymphocytes % (Manual) Seg Neutrophils # Seg Neutrophils # Man Lymphocytes # (Manual) ABG pH POC ABG pCO2 POC ABG pO2 ABG pO2 ABG HCO3 ABG O2 Saturation ABG Base Excess ABG Hemoglobin ABG Oxyhemoglobin ABG Sodium ABG Potassium ABG Glucose Oxyhemoglobin Sodium Potassium 5.1 H Chloride Carbon Dioxide BUN 36 H Creatinine 1.3 H D Glucose 137 H POC Glucose 132 H 133 H Calcium Total Protein Albumin Arterial Blood Glucose Phenytoin 10/21/20 10/21/20 10/21/20 13:43 18:45 18:45 WBC 13.2 H RBC Hgb Hct MCHC Lymph % (Auto) 7.9 L [place] % (Auto) 11.1 H Lymph # (Auto) 1.1 L [place] # (Auto) 1.5 H Seg Neutrophils % 79.8 H Seg Neuts % (Manual) Lymphocytes % (Manual) Seg Neutrophils # 10.6 H Seg Neutrophils # Man Lymphocytes # (Manual) ABG pH POC ABG pCO2 POC ABG pO2 79.6 L ABG pO2 ABG HCO3 ABG O2 Saturation ABG Base Excess ABG Hemoglobin ABG Oxyhemoglobin ABG Sodium 135.8 L ABG Potassium 4.9 H ABG Glucose 155 H Oxyhemoglobin Sodium Potassium Chloride Carbon Dioxide BUN Creatinine Glucose POC Glucose Calcium Total Protein Albumin Arterial Blood Glucose 155 H Phenytoin 6.7 L 10/22/20 10/22/20 10/22/20 04:48 05:31 12:30 WBC RBC Hgb Hct MCHC Lymph % (Auto) [place] % (Auto) Lymph # (Auto) [place] # (Auto) Seg Neutrophils % Seg Neuts % (Manual) Lymphocytes % (Manual) Seg Neutrophils # Seg Neutrophils # Man Lymphocytes # (Manual) ABG pH POC ABG pCO2 POC ABG pO2 ABG pO2 ABG HCO3 ABG O2 Saturation ABG Base Excess ABG Hemoglobin ABG Oxyhemoglobin ABG Sodium ABG Potassium ABG Glucose Oxyhemoglobin Sodium Potassium Chloride Carbon Dioxide BUN Creatinine Glucose POC Glucose 124 H 124 H Calcium Total Protein Albumin Arterial Blood Glucose Phenytoin 6.6 L 10/22/20 10/23/20 10/23/20 18:04 00:09 00:16 WBC RBC Hgb Hct MCHC Lymph % (Auto) [place] % (Auto) Lymph # (Auto) [place] # (Auto) Seg Neutrophils % Seg Neuts % (Manual) Lymphocytes % (Manual) Seg Neutrophils # Seg Neutrophils # Man Lymphocytes # (Manual) ABG pH POC ABG pCO2 POC ABG pO2 ABG pO2 ABG HCO3 ABG O2 Saturation ABG Base Excess ABG Hemoglobin ABG Oxyhemoglobin ABG Sodium ABG Potassium ABG Glucose Oxyhemoglobin Sodium Potassium Chloride 109.6 H Carbon Dioxide 16 L BUN 68 H Creatinine 2.3 H D Glucose 148 H POC Glucose 130 H 149 H Calcium 8.3 L Total Protein Albumin Arterial Blood Glucose Phenytoin 10/23/20 10/23/20 10/23/20 05:33 08:07 11:43 WBC RBC 3.41 L Hgb 9.7 L Hct 29.8 L MCHC Lymph % (Auto) 9.9 L [place] % (Auto) 15.0 H Lymph # (Auto) 0.8 L [place] # (Auto) 1.2 H Seg Neutrophils % 72.5 H Seg Neuts % (Manual) Lymphocytes % (Manual) Seg Neutrophils # Seg Neutrophils # Man Lymphocytes # (Manual) ABG pH POC ABG pCO2 POC ABG pO2 ABG pO2 ABG HCO3 ABG O2 Saturation ABG Base Excess ABG Hemoglobin ABG Oxyhemoglobin ABG Sodium ABG Potassium ABG Glucose Oxyhemoglobin Sodium Potassium Chloride Carbon Dioxide BUN Creatinine Glucose POC Glucose 135 H 140 H Calcium Total Protein Albumin Arterial Blood Glucose Phenytoin 10/23/20 10/24/20 10/24/20 17:50 00:08 05:22 WBC RBC Hgb Hct MCHC Lymph % (Auto) [place] % (Auto) Lymph # (Auto) [place] # (Auto) Seg Neutrophils % Seg Neuts % (Manual) Lymphocytes % (Manual) Seg Neutrophils # Seg Neutrophils # Man Lymphocytes # (Manual) ABG pH POC ABG pCO2 POC ABG pO2 ABG pO2 ABG HCO3 ABG O2 Saturation ABG Base Excess ABG Hemoglobin ABG Oxyhemoglobin ABG Sodium ABG Potassium ABG Glucose Oxyhemoglobin Sodium Potassium Chloride Carbon Dioxide BUN Creatinine Glucose POC Glucose 121 H 131 H 132 H Calcium Total Protein Albumin Arterial Blood Glucose Phenytoin 10/24/20 10/24/20 10/24/20 10:10 10:10 11:23 WBC RBC 3.61 L Hgb Hct MCHC Lymph % (Auto) 8.9 L [place] % (Auto) 10.4 H Lymph # (Auto) 0.9 L [place] # (Auto) 1.0 H Seg Neutrophils % 78.3 H Seg Neuts % (Manual) Lymphocytes % (Manual) Seg Neutrophils # 7.8 H Seg Neutrophils # Man Lymphocytes # (Manual) ABG pH POC ABG pCO2 POC ABG pO2 ABG pO2 ABG HCO3 ABG O2 Saturation ABG Base Excess ABG Hemoglobin ABG Oxyhemoglobin ABG Sodium ABG Potassium ABG Glucose Oxyhemoglobin Sodium 146 H Potassium Chloride 115.8 H Carbon Dioxide BUN 40 H Creatinine Glucose 139 H POC Glucose 121 H Calcium Total Protein 6.2 L Albumin 2.9 L Arterial Blood Glucose Phenytoin 10/24/20 23:45 WBC RBC Hgb Hct MCHC Lymph % (Auto) [place] % (Auto) Lymph # (Auto) [place] # (Auto) Seg Neutrophils % Seg Neuts % (Manual) Lymphocytes % (Manual) Seg Neutrophils # Seg Neutrophils # Man Lymphocytes # (Manual) ABG pH POC ABG pCO2 POC ABG pO2 ABG pO2 ABG HCO3 ABG O2 Saturation ABG Base Excess ABG Hemoglobin ABG Oxyhemoglobin ABG Sodium ABG Potassium ABG Glucose Oxyhemoglobin Sodium Potassium Chloride Carbon Dioxide BUN Creatinine Glucose POC Glucose 112 H Calcium Total Protein Albumin Arterial Blood Glucose Phenytoin Chest x-ray: image reviewed Allied health notes reviewed: RT
[2020-10-26] MEDS: QUEtiapine 200 MG TAB PO SCH (09:31)
[2020-10-26] MEDS: FAMOTIDINE 20 MG TAB PO SCH (09:31)
[2020-10-26] MEDS: DOCUSATE SODIUM 100 MG/10 ML ORAL LIQD PO SCH (09:31)
[2020-10-26] MEDS: HEPARIN 5,000 UNIT/1 ML VIAL SUB-Q SCH (09:31)
[2020-10-26] MEDS: levETIRAcetam 1,500 MG in DEXTROSE 5% IN WATER 100 ML IV SCH (09:32)
--- NOTE | 2020-10-26 13:31 | Gastroenterology Progress Note ---
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, she clinically appears to be gradually improving Mainstay of therapy is avoiding opiates and correcting electrolyte abnormalities, and now the patient is extubated if she can increase movement and get out of bed to chair and even walk that would help as well As patient is continuing to improve, GI will sign off please call back with any questions or concerns - Patient Problems (1) [place] syndrome Current Visit: Yes Status: Acute Subjective Date of service: 10/26/20 Principal diagnosis: Ac hypoxemic & hypercapnic resp failure; Status epilepticus; HTNsive emerge Interval history: Patient is now extubate She is confused and talking incoherently Nurse reports multiple large BM's in the flexiseal over the last 24 hours Objective - Constitutional Vitals: Temp Pulse Resp BP Pulse Ox 97.8 F 90 15 177/80 98 10/26/20 12:00 10/26/20 13:11 10/26/20 13:01 10/26/20 13:11 10/26/20 13:19 General appearance: other - EENT Eyes: other - Neck Neck: supple - Respiratory Respiratory effort: other (on ventilator) - Gastrointestinal General gastrointestinal: Present: other (Positive bowel sounds with slightly decreased frequency and slightly increased.) - Integumentary Integumentary: Present: dry - Neurologic Neurological: disoriented - Labs CBC & Chem 7: 10/24/20 10:10 10/24/20 10:10 Labs: Laboratory Results - last 24 hr 10/25/20 10/25/20 10/26/20 17:57 23:46 05:17 POC Glucose 95 96 89 10/26/20 11:41 POC Glucose 101
[2020-10-26] MEDS: D5W/0.45% NACL 1,000 ML IV SCH (15:07)
[2020-10-26] MEDS: HALOPERIDOL LACTATE 5 MG/1 ML INJ IV PRN (18:17)
[2020-10-26] MEDS: LORazepam 2 MG/ML VIAL IV PRN (20:47)
[2020-10-26] MEDS ORDERED: QUEtiapine 200 MG TAB PO SCH (22:00)
[2020-10-27] MEDS: DOCUSATE SODIUM 100 MG/10 ML ORAL LIQD PO SCH ×3 (01:20→21:58)
[2020-10-27] MEDS: POLYETHYLENE GLYCOL 3350 17 GM POWDER PO SCH ×2 (01:20→21:59)
[2020-10-27] MEDS: METOCLOPRAMIDE 10 MG/2 ML INJ IV SCH ×4 (02:03→21:57)
[2020-10-27] MEDS: FAMOTIDINE 20 MG TAB PO SCH ×2 (02:04→21:56)
[2020-10-27] MEDS: levETIRAcetam 1,500 MG in DEXTROSE 5% IN WATER 100 ML IV SCH ×3 (02:04→21:56)
[2020-10-27] MEDS: HEPARIN 5,000 UNIT/1 ML VIAL SUB-Q SCH ×3 (02:05→21:58)
[2020-10-27] MEDS: SODIUM CHLORIDE 0.9% IV SCH ×3 (02:05→18:42)
[2020-10-27] MEDS: PHENYTOIN IV SCH ×3 (02:05→18:42)
[2020-10-27] MEDS ORDERED: SODIUM CHLORIDE 0.9% 1000 ML 1,000 ML ONE (02:14)
[2020-10-27] MEDS: LACOSAMIDE 200 MG in SODIUM CHLORIDE 0.9% 100 ML IV SCH ×2 (06:06→17:40)
--- NOTE | 2020-10-27 09:01 | Progress Note ---
Assessment and Plan The high probability of a clinically significant, sudden or life threatening deterioration of the [cardiac, pulmonary, renal] system(s) required my full and direct attention, intervention and personal management. The aggregate critical care time was [40] minutes. This time is in addition to time spent performing reported procedures but includes the following: [x] Data Review and interpretation [x] Patient assessment and monitoring of vital signs [x] Documentation [x] Medication orders and management (1) Acute respiratory failure Current Visit: Yes Status: Acute Qualifiers: Respiratory failure complication: hypoxia Qualified Code(s): J96.01 - Acute respiratory failure with hypoxia Plan to address problem: Patient extubated and not seizing (2) Status epilepticus Current Visit: Yes Status: Acute Plan to address problem: Supportive care. Seizure precautions, Keppra 1 g IV in the emergency department, Keppra 500 mg twice daily. Teleneurology consulted. Started on for fosphenytoin sodium 500 mg IV Neurology consult appreciated (3) Hypertensive emergency Current Visit: Yes Status: Acute Plan to address problem: Monitor blood pressure every shift, continue IV hydralazine, (4) Acute encephalopathy Current Visit: Yes Status: Acute Plan to address problem: CT head, neuro check, seizure precautions, aspiration precautions, (5) Leukocytosis Current Visit: Yes Status: Acute Plan to address problem: Chest x-ray, CBC, urinalysis, empiric IV antibiotic therapy x1 dose, repeat CBC in a.m. (6) DVT prophylaxis Current Visit: Yes Status: Acute Plan to address problem: SCD to bilateral lower extremities while in bed, prophylactic anticoagulation (7) Advance care planning Current Visit: Yes Status: Acute Plan to address problem: Disease education conducted, patient is full code, prognosis discussed, +30 minutes. Subjective Date of service: 10/26/20 Principal diagnosis: Ac hypoxemic & hypercapnic resp failure; Status epi lepticus; HTNsive emerge Interval history: 65 YO Female with Obesity, HTN, presents to ED for evaluation. Patient is intubated and on ventilatory support at the time of my evaluation and is unable to provide history. Patient history is taken from EMS staff, ED staff. As per staff the patient was found down and unresponsive by her neighbor. Patient neighbor describe seizure-like activity. EMS was notified and upon arrival the patient was found to be in distress and actively seizing. Patient treated with 2 mg of Ativan which terminated the seizures. The patient was subsequently transported to [facility] for further evaluation and care of the aforementioned symptoms. Patient was seen and evaluated in the emergency department. All lab and imaging studies reviewed. Patient found to have symptoms consistent with status epilepticus which was evidenced by recurrent seizures in the emergency department with concomitant decrease in pulse oximetry to 84% on room air. The patient was also found to have hypertensive emergency with a blood pressure of 223/143. The patient was deemed unable to protect her airway and was intubated for airway protection. Patient also found to have acute encephalopathy. Patient admitted to ICU due to increased risk of decompensation. Critical care team consulted in ED. No prior admission for review. No medication listed at t yaneth of admission for reconciliation. Advanced care planning conducted in ED. Objective - Constitutional Vitals: Vital Signs - 12hr 10/26/20 10/26/20 10/26/20 21:01 21:15 21:30 Temperature Pulse Rate 88 80 79 Pulse Rate [ From Monitor] Respiratory 24 23 22 Rate Blood Pressure 141/75 172/91 115/56 O2 Sat by Pulse 99 99 99 Oximetry 10/26/20 10/26/20 10/26/20 21:45 22:00 22:15 Temperature Pulse Rate 77 78 78 Pulse Rate [ From Monitor] Respiratory 21 20 19 Rate Blood Pressure 115/56 125/62 125/62 O2 Sat by Pulse 99 99 100 Oximetry 10/26/20 10/26/20 10/26/20 22:31 22:45 23:00 Temperature Pulse Rate 85 77 76 Pulse Rate [ From Monitor] Respiratory 24 22 22 Rate Blood Pressure 120/80 125/62 115/59 O2 Sat by Pulse 99 100 100 Oximetry 10/26/20 10/26/20 10/26/20 23:15 23:30 23:45 Temperature Pulse Rate 81 75 75 Pulse Rate [ From Monitor] Respiratory 20 21 20 Rate Blood Pressure 115/59 122/64 122/64 O2 Sat by Pulse 100 100 100 Oximetry 10/26/20 10/27/20 10/27/20 23:48 00:00 00:01 Temperature 98.9 F Pulse Rate 90 87 Pulse Rate [ 89 From Monitor] Respiratory 31 H 23 Rate Blood Pressure 128/56 O2 Sat by Pulse 99 100 Oximetry 10/27/20 10/27/20 10/27/20 00:15 00:31 00:45 Temperature Pulse Rate 75 87 97 H Pulse Rate [ From Monitor] Respiratory 18 20 27 H Rate Blood Pressure 128/56 155/77 155/77 O2 Sat by Pulse 100 99 98 Oximetry 10/27/20 10/27/20 10/27/20 01:00 01:15 01:31 Temperature Pulse Rate 98 H 94 H 98 H Pulse Rate [ From Monitor] Respiratory 26 H 27 H 24 Rate Blood Pressure 160/101 155/77 175/94 O2 Sat by Pulse 98 98 98 Oximetry 10/27/20 10/27/20 10/27/20 01:45 02:00 02:15 Temperature Pulse Rate 95 H 93 H 84 Pulse Rate [ From Monitor] Respiratory 28 H 23 26 H Rate Blood Pressure 160/101 177/103 177/103 O2 Sat by Pulse 98 97 99 Oximetry 10/27/20 10/27/20 10/27/20 02:30 02:45 03:01 Temperature Pulse Rate 84 81 88 Pulse Rate [ From Monitor] Respiratory 21 25 H 17 Rate Blood Pressure 146/76 146/76 146/103 O2 Sat by Pulse 99 100 100 Oximetry 10/27/20 10/27/20 10/27/20 03:15 03:31 03:45 Temperature Pulse Rate 88 86 93 H Pulse Rate [ From Monitor] Respiratory 19 22 22 Rate Blood Pressure 146/103 141/74 141/74 O2 Sat by Pulse 100 99 100 Oximetry 10/27/20 10/27/20 10/27/20 04:00 04:01 04:15 Temperature 98.8 F Pulse Rate 89 92 H 87 Pulse Rate [ 86 From Monitor] Respiratory 31 H 23 19 Rate Blood Pressure 180/58 180/58 O2 Sat by Pulse 99 99 97 Oximetry 10/27/20 10/27/20 10/27/20 04:30 04:45 05:01 Temperature Pulse Rate 85 86 92 H Pulse Rate [ From Monitor] Respiratory 23 29 H 23 Rate Blood Pressure 171/105 171/105 171/105 O2 Sat by Pulse 99 98 99 Oximetry 10/27/20 10/27/20 10/27/20 05:15 05:31 05:45 Temperature Pulse Rate 81 96 H 92 H Pulse Rate [ From Monitor] Respiratory 25 H 26 H 13 Rate Blood Pressure 158/90 182/152 182/152 O2 Sat by Pulse 99 99 99 Oximetry 10/27/20 10/27/20 10/27/20 06:01 06:15 08:00 Temperature 98.0 F Pulse Rate 90 83 Pulse Rate [ From Monitor] Respiratory 29 H 27 H Rate Blood Pressure 150/66 150/66 O2 Sat by Pulse 93 97 Oximetry 10/27/20 08:42 Temperature Pulse Rate Pulse Rate [ From Monitor] Respiratory Rate Blood Pressure O2 Sat by Pulse 96 Oximetry General appearance: Present: no acute distress, mild distress, well-nourished - EENT Eyes: PERRL, EOM intact ENT: hearing intact, clear oral mucosa Ears: bilateral: normal - Neck Neck: supple, normal ROM - Respiratory Respiratory effort: normal Respiratory: bilateral: CTA - Breasts Breasts: normal - Cardiovascular Rhythm: regular Heart Sounds: Present: S1 & S2. Absent: gallop, rub Extremities: pulses intact, No edema, normal color, Full ROM - Gastrointestinal General gastrointestinal: Present: soft, non-tender, non-distended, normal bowel sounds - Genitourinary Female genitourinary: normal - Integumentary Integumentary: clear, warm, dry - Musculoskeletal Musculoskeletal: 1, strength equal bilaterally - Neurologic Neurologic: moves all extremities - Psychiatric Psychiatric: memory intact, appropriate mood/affect, intact judgment & insight - Labs CBC & Chem 7: 10/30/20 07:53 10/30/20 07:53 HEART Score - HEART Score Troponin: Troponin T 0.015 ng/mL (0.00-0.029) 10/14/20 13:36
--- NOTE | 2020-10-27 10:00 | Progress Note ---
Assessment and Plan Acute hypoxemic and hypercapnic respiratory failure. Acute encephalopathy (Toxic / metabolic). Status epilepticus. Hypertensive emergency at presentation. History of a brain aneurysm repair. Obesity. History of hypertension. Leukocytosis. Mild hyponatremia. Hyperglycemia. - doing better and will transfer totelemetry floor - may need 1 on 1 sitter - advance diet per GI recommendations - continue bowel regimen - continue care as below otherwise; - continue low dose reglan - continue bowel regimen with colace & miralax - continue Vimpat & Keppra (Adjust per neurologist) - continue Seroquel for now, wean per clinical response - continue to wean supplemental oxygen for target O2 sat's > 92% acutely - aspiration precautions - continue bronchodilators with pulmonary hygiene per RT - wean per pulmonary driven protocols otherwise - empiric AB's coverage per ID rec's otherwise - accuchecks with glycemic control per SSI for target blood glucose of < 180 mg/dL; avoid hypoglycemia - avoid nephrotoxins, renally dose all medications - continue Keppra as AED - continue to avoid benzodiazepine's, reduce the possibility of delirium - prn analgesia per CPOT score - Maintenance of sleep-wake cycle, avoid delirium - continue to avoid benzodiazepine's, reduce the possibility of delirium - G.I. & VTE prophylaxis - PT/OT/ROM exercises - continue mobility protocols for pressure ulcer prophylaxis - Monitor hemodynamics closely - continue other care per attending / other consultants - discharge planning ongoing concurrently .... Re-evaluate in am & prn CONDITION: FAIR PROGNOSIS: GUARDED CODE STATUS: FULL CODE I have spent ( >35 ) minutes with the patient w/ >50% of the time spent counseling and/or coordinating care for this patient. Counseling topics and/or how time was spent coordinating patient's care is outlined in the impression and plan above. Subjective Date of service: 10/27/20 Principal diagnosis: Ac hypoxemic & hypercapnic resp failure; Status epilepticus; HTNsive emerge Interval history: Patient is seen today for: Ac hypoxemic and hypercapnic resp failure; Ac. encephalopathy; Status epilepticus; HTNsive emergency; History of a brain aneurysm repair; Obesity Seen and examined at bedside; 24hour events reviewed; nursing and respiratory care staff consulted; no adverse overnight events reported to me; resting peacefully in bed; tolerating extubation very well; did not need BIPAP overnight; denies acute chest pain; No N/V/F/C Objective Vital Signs - 12hr 10/26/20 10/26/20 10/26/20 22:15 22:31 22:45 Temperature Pulse Rate 78 85 77 Pulse Rate [ From Monitor] Respiratory 19 24 22 Rate Blood Pressure 125/62 120/80 125/62 O2 Sat by Pulse 100 99 100 Oximetry 10/26/20 10/26/20 10/26/20 23:00 23:15 23:30 Temperature Pulse Rate 76 81 75 Pulse Rate [ From Monitor] Respiratory 22 20 21 Rate Blood Pressure 115/59 115/59 122/64 O2 Sat by Pulse 100 100 100 Oximetry 10/26/20 10/26/20 10/27/20 23:45 23:48 00:00 Temperature 98.9 F Pulse Rate 75 90 Pulse Rate [ 89 From Monitor] Respiratory 20 31 H Rate Blood Pressure 122/64 O2 Sat by Pulse 100 99 Oximetry 10/27/20 10/27/20 10/27/20 00:01 00:15 00:31 Temperature Pulse Rate 87 75 87 Pulse Rate [ From Monitor] Respiratory 23 18 20 Rate Blood Pressure 128/56 128/56 155/77 O2 Sat by Pulse 100 100 99 Oximetry 10/27/20 10/27/20 10/27/20 00:45 01:00 01:15 Temperature Pulse Rate 97 H 98 H 94 H Pulse Rate [ From Monitor] Respiratory 27 H 26 H 27 H Rate Blood Pressure 155/77 160/101 155/77 O2 Sat by Pulse 98 98 98 Oximetry 10/27/20 10/27/20 10/27/20 01:31 01:45 02:00 Temperature Pulse Rate 98 H 95 H 93 H Pulse Rate [ From Monitor] Respiratory 24 28 H 23 Rate Blood Pressure 175/94 160/101 177/103 O2 Sat by Pulse 98 98 97 Oximetry 10/27/20 10/27/20 10/27/20 02:15 02:30 02:45 Temperature Pulse Rate 84 84 81 Pulse Rate [ From Monitor] Respiratory 26 H 21 25 H Rate Blood Pressure 177/103 146/76 146/76 O2 Sat by Pulse 99 99 100 Oximetry 10/27/20 10/27/20 10/27/20 03:01 03:15 03:31 Temperature Pulse Rate 88 88 86 Pulse Rate [ From Monitor] Respiratory 17 19 22 Rate Blood Pressure 146/103 146/103 141/74 O2 Sat by Pulse 100 100 99 Oximetry 10/27/20 10/27/20 10/27/20 03:45 04:00 04:01 Temperature 98.8 F Pulse Rate 93 H 89 92 H Pulse Rate [ 86 From Monitor] Respiratory 22 31 H 23 Rate Blood Pressure 141/74 180/58 O2 Sat by Pulse 100 99 99 Oximetry 10/27/20 10/27/20 10/27/20 04:15 04:30 04:45 Temperature Pulse Rate 87 85 86 Pulse Rate [ From Monitor] Respiratory 19 23 29 H Rate Blood Pressure 180/58 171/105 171/105 O2 Sat by Pulse 97 99 98 Oximetry 10/27/20 10/27/20 10/27/20 05:01 05:15 05:31 Temperature Pulse Rate 92 H 81 96 H Pulse Rate [ From Monitor] Respiratory 23 25 H 26 H Rate Blood Pressure 171/105 158/90 182/152 O2 Sat by Pulse 99 99 99 Oximetry 10/27/20 10/27/20 10/27/20 05:45 06:01 06:15 Temperature Pulse Rate 92 H 90 83 Pulse Rate [ From Monitor] Respiratory 13 29 H 27 H Rate Blood Pressure 182/152 150/66 150/66 O2 Sat by Pulse 99 93 97 Oximetry 10/27/20 10/27/20 10/27/20 06:31 06:45 07:01 Temperature Pulse Rate 93 H 77 97 H Pulse Rate [ From Monitor] Respiratory 30 H 28 H 18 Rate Blood Pressure 141/91 141/91 141/115 O2 Sat by Pulse 97 97 97 Oximetry 10/27/20 10/27/20 10/27/20 07:15 07:31 07:45 Temperature Pulse Rate 91 H 96 H 94 H Pulse Rate [ From Monitor] Respiratory 25 H 32 H 20 Rate Blood Pressure 141/115 170/107 170/107 O2 Sat by Pulse 96 99 96 Oximetry 10/27/20 10/27/20 10/27/20 08:00 08:15 08:31 Temperature 98.0 F Pulse Rate 92 H 89 102 H Pulse Rate [ From Monitor] Respiratory 19 20 17 Rate Blood Pressure 185/132 185/132 194/120 O2 Sat by Pulse 97 96 84 Oximetry 10/27/20 10/27/20 10/27/20 08:42 08:45 09:00 Temperature Pulse Rate 86 98 H Pulse Rate [ From Monitor] Respiratory 24 31 H Rate Blood Pressure 165/91 185/113 O2 Sat by Pulse 96 96 89 Oximetry 10/27/20 09:15 Temperature Pulse Rate 96 H Pulse Rate [ From Monitor] Respiratory 33 H Rate Blood Pressure 185/113 O2 Sat by Pulse 77 L Oximetry Constitutional: no acute distress, other (elderly obese female with normal respiratory effort at rest) Eyes: non-icteric ENT: oropharynx moist, other (extubated) Neck: supple, no lymphadenopathy, no JVD Effort: mildly labored Ascultation: Bilateral: diminished breath sounds, rhonchi (scant) Percussion: Bilateral: not dull Cardiovascular: regular rate and rhythm Gastrointestinal: normoactive bowel sounds, soft, non-tender, other (Distended, firm) Integumentary: normal Extremities: no cyanosis, no edema, pink and warm, pulses normal Neurologic: non-focal exam (grossly), pupils equal and round, CN II-XII normal, motor strength normal and (weak) Psychiatric: mood appropriate, affect normal, other (? mild dementia / delirium element) CBC and BMP: 10/24/20 10:10 10/24/20 10:10 ABG, PT/INR, D-dimer: ABG ABG pH 7.393 (7.320-7.450) 10/21/20 13:43 POC ABG pCO2 34.4 mmHg (32.0-48.0) 10/21/20 13:43 ABG pCO2 46.2 mm Hg 10/19/20 04:55 POC ABG pO2 79.6 mmHg (83-108) L 10/21/20 13:43 ABG pO2 84.7 mm Hg (80.0-90.0) 10/19/20 04:55 POC ABG HCO3 20.5 10/21/20 13:43 ABG O2 Saturation 96.7 % (95.0-99.0) 10/19/20 04:55 PT/INR, D-dimer PT 14.0 Sec. (12.2-14.9) 10/14/20 13:36 INR 1.07 (0.87-1.13) 10/14/20 13:36 Abnormal lab findings: Abnormal Labs 10/14/20 10/14/20 10/14/20 13:36 13:36 14:22 WBC 14.7 H RBC Hgb Hct MCHC 35 H Lymph % (Auto) [place] % (Auto) Lymph # (Auto) [place] # (Auto) Seg Neutrophils % Seg Neuts % (Manual) 89.0 H Lymphocytes % (Manual) 4.0 L Seg Neutrophils # Seg Neutrophils # Man 13.1 H Lymphocytes # (Manual) 0.6 L ABG pH 7.298 L POC ABG pCO2 POC ABG pO2 ABG pO2 285.8 H ABG HCO3 ABG O2 Saturation 99.5 H ABG Base Excess -4.1 L ABG Hemoglobin ABG Oxyhemoglobin ABG Sodium ABG Potassium ABG Glucose Oxyhemoglobin Sodium 131 L Potassium Chloride 97.2 L Carbon Dioxide BUN Creatinine Glucose 170 H POC Glucose Calcium Total Protein Albumin Arterial Blood Glucose Phenytoin 10/14/20 10/15/20 10/15/20 17:09 03:35 04:33 WBC RBC Hgb Hct MCHC 36 H Lymph % (Auto) 9.6 L [place] % (Auto) 10.1 H Lymph # (Auto) 1.0 L [place] # (Auto) 1.1 H Seg Neutrophils % 79.8 H Seg Neuts % (Manual) Lymphocytes % (Manual) Seg Neutrophils # 8.4 H Seg Neutrophils # Man Lymphocytes # (Manual) ABG pH 7.536 H POC ABG pCO2 POC ABG pO2 ABG pO2 185.0 H 110.2 H ABG HCO3 ABG O2 Saturation 99.2 H ABG Base Excess ABG Hemoglobin ABG Oxyhemoglobin ABG Sodium ABG Potassium ABG Glucose Oxyhemoglobin Sodium Potassium Chloride Carbon Dioxide BUN Creatinine Glucose POC Glucose Calcium Total Protein Albumin Arterial Blood Glucose Phenytoin 10/15/20 10/15/20 10/16/20 04:33 13:12 00:09 WBC RBC Hgb Hct MCHC Lymph % (Auto) [place] % (Auto) Lymph # (Auto) [place] # (Auto) Seg Neutrophils % Seg Neuts % (Manual) Lymphocytes % (Manual) Seg Neutrophils # Seg Neutrophils # Man Lymphocytes # (Manual) ABG pH 7.297 L POC ABG pCO2 51.0 H POC ABG pO2 56.7 L ABG pO2 ABG HCO3 ABG O2 Saturation ABG Base Excess ABG Hemoglobin ABG Oxyhemoglobin 84.6 L ABG Sodium 134.4 L ABG Potassium ABG Glucose 118 H Oxyhemoglobin Sodium Potassium Chloride Carbon Dioxide BUN Creatinine Glucose 120 H POC Glucose 114 H Calcium Total Protein Albumin Arterial Blood Glucose 118 H Phenytoin 10/16/20 10/16/20 10/17/20 05:42 05:46 04:08 WBC RBC Hgb Hct MCHC Lymph % (Auto) [place] % (Auto) Lymph # (Auto) [place] # (Auto) Seg Neutrophils % Seg Neuts % (Manual) Lymphocytes % (Manual) Seg Neutrophils # Seg Neutrophils # Man Lymphocytes # (Manual) ABG pH POC ABG pCO2 POC ABG pO2 ABG pO2 96.6 H ABG HCO3 ABG O2 Saturation ABG Base Excess ABG Hemoglobin ABG Oxyhemoglobin ABG Sodium 132.6 L ABG Potassium ABG Glucose 112 H Oxyhemoglobin Sodium Potassium Chloride Carbon Dioxide BUN Creatinine Glucose POC Glucose 106 H Calcium Total Protein Albumin Arterial Blood Glucose 112 H Phenytoin 10/17/20 10/17/20 10/17/20 09:23 09:23 10:46 WBC 12.3 H RBC Hgb Hct MCHC Lymph % (Auto) [place] % (Auto) Lymph # (Auto) [place] # (Auto) Seg Neutrophils % Seg Neuts % (Manual) Lymphocytes % (Manual) Seg Neutrophils # Seg Neutrophils # Man Lymphocytes # (Manual) ABG pH POC ABG pCO2 POC ABG pO2 71.6 L ABG pO2 ABG HCO3 ABG O2 Saturation ABG Base Excess ABG Hemoglobin ABG Oxyhemoglobin 92.6 L ABG Sodium 134.8 L ABG Potassium ABG Glucose 105 H Oxyhemoglobin Sodium Potassium Chloride Carbon Dioxide 21 L BUN 19 H Creatinine Glucose POC Glucose Calcium Total Protein Albumin Arterial Blood Glucose 105 H Phenytoin 10/17/20 10/18/20 10/18/20 23:43 04:18 08:32 WBC RBC Hgb Hct MCHC Lymph % (Auto) [place] % (Auto) Lymph # (Auto) [place] # (Auto) Seg Neutrophils % Seg Neuts % (Manual) Lymphocytes % (Manual) Seg Neutrophils # Seg Neutrophils # Man Lymphocytes # (Manual) ABG pH POC ABG pCO2 POC ABG pO2 81.9 L ABG pO2 ABG HCO3 ABG O2 Saturation ABG Base Excess ABG Hemoglobin ABG Oxyhemoglobin ABG Sodium 133.3 L ABG Potassium ABG Glucose 125 H Oxyhemoglobin Sodium Potassium Chloride Carbon Dioxide BUN Creatinine Glucose POC Glucose 118 H Calcium Total Protein Albumin Arterial Blood Glucose 125 H Phenytoin 7.1 L 10/18/20 10/18/20 10/18/20 08:32 08:32 12:34 WBC RBC Hgb Hct MCHC Lymph % (Auto) 12.4 L [place] % (Auto) Lymph # (Auto) [place] # (Auto) Seg Neutrophils % 77.0 H Seg Neuts % (Manual) Lymphocytes % (Manual) Seg Neutrophils # Seg Neutrophils # Man Lymphocytes # (Manual) ABG pH POC ABG pCO2 POC ABG pO2 ABG pO2 ABG HCO3 ABG O2 Saturation ABG Base Excess ABG Hemoglobin ABG Oxyhemoglobin ABG Sodium ABG Potassium ABG Glucose Oxyhemoglobin Sodium 135 L Potassium Chloride Carbon Dioxide BUN 21 H Creatinine Glucose 131 H POC Glucose 121 H Calcium Total Protein Albumin Arterial Blood Glucose Phenytoin 10/18/20 10/18/20 10/19/20 18:12 23:47 04:55 WBC RBC Hgb Hct MCHC Lymph % (Auto) [place] % (Auto) Lymph # (Auto) [place] # (Auto) Seg Neutrophils % Seg Neuts % (Manual) Lymphocytes % (Manual) Seg Neutrophils # Seg Neutrophils # Man Lymphocytes # (Manual) ABG pH POC ABG pCO2 POC ABG pO2 ABG pO2 ABG HCO3 27.1 H ABG O2 Saturation ABG Base Excess ABG Hemoglobin 11.1 L ABG Oxyhemoglobin ABG Sodium ABG Potassium ABG Glucose Oxyhemoglobin 94.9 L Sodium Potassium Chloride Carbon Dioxide BUN Creatinine Glucose POC Glucose 133 H 142 H Calcium Total Protein Albumin Arterial Blood Glucose Phenytoin 10/19/20 10/19/20 10/19/20 06:02 07:59 12:35 WBC RBC Hgb Hct MCHC Lymph % (Auto) [place] % (Auto) Lymph # (Auto) [place] # (Auto) Seg Neutrophils % Seg Neuts % (Manual) Lymphocytes % (Manual) Seg Neutrophils # Seg Neutrophils # Man Lymphocytes # (Manual) ABG pH POC ABG pCO2 POC ABG pO2 ABG pO2 ABG HCO3 ABG O2 Saturation ABG Base Excess ABG Hemoglobin ABG Oxyhemoglobin ABG Sodium ABG Potassium ABG Glucose Oxyhemoglobin Sodium Potassium Chloride Carbon Dioxide BUN Creatinine Glucose 144 H POC Glucose 143 H 132 H Calcium Total Protein Albumin Arterial Blood Glucose Phenytoin 10/19/20 10/19/20 10/19/20 16:12 16:31 23:17 WBC RBC Hgb Hct MCHC Lymph % (Auto) [place] % (Auto) Lymph # (Auto) [place] # (Auto) Seg Neutrophils % Seg Neuts % (Manual) Lymphocytes % (Manual) Seg Neutrophils # Seg Neutrophils # Man Lymphocytes # (Manual) ABG pH 7.461 H POC ABG pCO2 POC ABG pO2 75.8 L ABG pO2 ABG HCO3 ABG O2 Saturation ABG Base Excess ABG Hemoglobin ABG Oxyhemoglobin ABG Sodium 134.0 L ABG Potassium ABG Glucose 156 H Oxyhemoglobin Sodium Potassium Chloride Carbon Dioxide BUN Creatinine Glucose POC Glucose 120 H 128 H Calcium Total Protein Albumin Arterial Blood Glucose 156 H Phenytoin 10/20/20 10/20/20 10/20/20 03:25 05:26 12:12 WBC RBC Hgb Hct MCHC Lymph % (Auto) [place] % (Auto) Lymph # (Auto) [place] # (Auto) Seg Neutrophils % Seg Neuts % (Manual) Lymphocytes % (Manual) Seg Neutrophils # Seg Neutrophils # Man Lymphocytes # (Manual) ABG pH POC ABG pCO2 POC ABG pO2 ABG pO2 ABG HCO3 ABG O2 Saturation ABG Base Excess ABG Hemoglobin ABG Oxyhemoglobin ABG Sodium 134.0 L ABG Potassium ABG Glucose 129 H Oxyhemoglobin Sodium Potassium Chloride Carbon Dioxide BUN Creatinine Glucose POC Glucose 125 H 136 H Calcium Total Protein Albumin Arterial Blood Glucose 129 H Phenytoin 10/20/20 10/21/20 10/21/20 17:58 00:09 04:14 WBC RBC Hgb Hct MCHC Lymph % (Auto) [place] % (Auto) Lymph # (Auto) [place] # (Auto) Seg Neutrophils % Seg Neuts % (Manual) Lymphocytes % (Manual) Seg Neutrophils # Seg Neutrophils # Man Lymphocytes # (Manual) ABG pH POC ABG pCO2 POC ABG pO2 ABG pO2 ABG HCO3 ABG O2 Saturation ABG Base Excess ABG Hemoglobin ABG Oxyhemoglobin ABG Sodium 134.6 L ABG Potassium 4.8 H ABG Glucose 145 H Oxyhemoglobin Sodium Potassium Chloride Carbon Dioxide BUN Creatinine Glucose POC Glucose 148 H 144 H Calcium Total Protein Albumin Arterial Blood Glucose 145 H Phenytoin 10/21/20 10/21/20 10/21/20 04:48 05:17 12:43 WBC RBC Hgb Hct MCHC Lymph % (Auto) [place] % (Auto) Lymph # (Auto) [place] # (Auto) Seg Neutrophils % Seg Neuts % (Manual) Lymphocytes % (Manual) Seg Neutrophils # Seg Neutrophils # Man Lymphocytes # (Manual) ABG pH POC ABG pCO2 POC ABG pO2 ABG pO2 ABG HCO3 ABG O2 Saturation ABG Base Excess ABG Hemoglobin ABG Oxyhemoglobin ABG Sodium ABG Potassium ABG Glucose Oxyhemoglobin Sodium Potassium 5.1 H Chloride Carbon Dioxide BUN 36 H Creatinine 1.3 H D Glucose 137 H POC Glucose 132 H 133 H Calcium Total Protein Albumin Arterial Blood Glucose Phenytoin 10/21/20 10/21/20 10/21/20 13:43 18:45 18:45 WBC 13.2 H RBC Hgb Hct MCHC Lymph % (Auto) 7.9 L [place] % (Auto) 11.1 H Lymph # (Auto) 1.1 L [place] # (Auto) 1.5 H Seg Neutrophils % 79.8 H Seg Neuts % (Manual) Lymphocytes % (Manual) Seg Neutrophils # 10.6 H Seg Neutrophils # Man Lymphocytes # (Manual) ABG pH POC ABG pCO2 POC ABG pO2 79.6 L ABG pO2 ABG HCO3 ABG O2 Saturation ABG Base Excess ABG Hemoglobin ABG Oxyhemoglobin ABG Sodium 135.8 L ABG Potassium 4.9 H ABG Glucose 155 H Oxyhemoglobin Sodium Potassium Chloride Carbon Dioxide BUN Creatinine Glucose POC Glucose Calcium Total Protein Albumin Arterial Blood Glucose 155 H Phenytoin 6.7 L 10/22/20 10/22/20 10/22/20 04:48 05:31 12:30 WBC RBC Hgb Hct MCHC Lymph % (Auto) [place] % (Auto) Lymph # (Auto) [place] # (Auto) Seg Neutrophils % Seg Neuts % (Manual) Lymphocytes % (Manual) Seg Neutrophils # Seg Neutrophils # Man Lymphocytes # (Manual) ABG pH POC ABG pCO2 POC ABG pO2 ABG pO2 ABG HCO3 ABG O2 Saturation ABG Base Excess ABG Hemoglobin ABG Oxyhemoglobin ABG Sodium ABG Potassium ABG Glucose Oxyhemoglobin Sodium Potassium Chloride Carbon Dioxide BUN Creatinine Glucose POC Glucose 124 H 124 H Calcium Total Protein Albumin Arterial Blood Glucose Phenytoin 6.6 L 10/22/20 10/23/20 10/23/20 18:04 00:09 00:16 WBC RBC Hgb Hct MCHC Lymph % (Auto) [place] % (Auto) Lymph # (Auto) [place] # (Auto) Seg Neutrophils % Seg Neuts % (Manual) Lymphocytes % (Manual) Seg Neutrophils # Seg Neutrophils # Man Lymphocytes # (Manual) ABG pH POC ABG pCO2 POC ABG pO2 ABG pO2 ABG HCO3 ABG O2 Saturation ABG Base Excess ABG Hemoglobin ABG Oxyhemoglobin ABG Sodium ABG Potassium ABG Glucose Oxyhemoglobin Sodium Potassium Chloride 109.6 H Carbon Dioxide 16 L BUN 68 H Creatinine 2.3 H D Glucose 148 H POC Glucose 130 H 149 H Calcium 8.3 L Total Protein Albumin Arterial Blood Glucose Phenytoin 10/23/20 10/23/20 10/23/20 05:33 08:07 11:43 WBC RBC 3.41 L Hgb 9.7 L Hct 29.8 L MCHC Lymph % (Auto) 9.9 L [place] % (Auto) 15.0 H Lymph # (Auto) 0.8 L [place] # (Auto) 1.2 H Seg Neutrophils % 72.5 H Seg Neuts % (Manual) Lymphocytes % (Manual) Seg Neutrophils # Seg Neutrophils # Man Lymphocytes # (Manual) ABG pH POC ABG pCO2 POC ABG pO2 ABG pO2 ABG HCO3 ABG O2 Saturation ABG Base Excess ABG Hemoglobin ABG Oxyhemoglobin ABG Sodium ABG Potassium ABG Glucose Oxyhemoglobin Sodium Potassium Chloride Carbon Dioxide BUN Creatinine Glucose POC Glucose 135 H 140 H Calcium Total Protein Albumin Arterial Blood Glucose Phenytoin 10/23/20 10/24/20 10/24/20 17:50 00:08 05:22 WBC RBC Hgb Hct MCHC Lymph % (Auto) [place] % (Auto) Lymph # (Auto) [place] # (Auto) Seg Neutrophils % Seg Neuts % (Manual) Lymphocytes % (Manual) Seg Neutrophils # Seg Neutrophils # Man Lymphocytes # (Manual) ABG pH POC ABG pCO2 POC ABG pO2 ABG pO2 ABG HCO3 ABG O2 Saturation ABG Base Excess ABG Hemoglobin ABG Oxyhemoglobin ABG Sodium ABG Potassium ABG Glucose Oxyhemoglobin Sodium Potassium Chloride Carbon Dioxide BUN Creatinine Glucose POC Glucose 121 H 131 H 132 H Calcium Total Protein Albumin Arterial Blood Glucose Phenytoin 10/24/20 10/24/20 10/24/20 10:10 10:10 11:23 WBC RBC 3.61 L Hgb Hct MCHC Lymph % (Auto) 8.9 L [place] % (Auto) 10.4 H Lymph # (Auto) 0.9 L [place] # (Auto) 1.0 H Seg Neutrophils % 78.3 H Seg Neuts % (Manual) Lymphocytes % (Manual) Seg Neutrophils # 7.8 H Seg Neutrophils # Man Lymphocytes # (Manual) ABG pH POC ABG pCO2 POC ABG pO2 ABG pO2 ABG HCO3 ABG O2 Saturation ABG Base Excess ABG Hemoglobin ABG Oxyhemoglobin ABG Sodium ABG Potassium ABG Glucose Oxyhemoglobin Sodium 146 H Potassium Chloride 115.8 H Carbon Dioxide BUN 40 H Creatinine Glucose 139 H POC Glucose 121 H Calcium Total Protein 6.2 L Albumin 2.9 L Arterial Blood Glucose Phenytoin 10/24/20 23:45 WBC RBC Hgb Hct MCHC Lymph % (Auto) [place] % (Auto) Lymph # (Auto) [place] # (Auto) Seg Neutrophils % Seg Neuts % (Manual) Lymphocytes % (Manual) Seg Neutrophils # Seg Neutrophils # Man Lymphocytes # (Manual) ABG pH POC ABG pCO2 POC ABG pO2 ABG pO2 ABG HCO3 ABG O2 Saturation ABG Base Excess ABG Hemoglobin ABG Oxyhemoglobin ABG Sodium ABG Potassium ABG Glucose Oxyhemoglobin Sodium Potassium Chloride Carbon Dioxide BUN Creatinine Glucose POC Glucose 112 H Calcium Total Protein Albumin Arterial Blood Glucose Phenytoin Chest x-ray: pending Allied health notes reviewed: nursing
[2020-10-27] MEDS: D5W/0.45% NACL 1,000 ML IV SCH (10:07)
[2020-10-27] MEDS: LORazepam 2 MG/ML VIAL IV PRN (17:42)
[2020-10-27] MEDS: QUEtiapine 100 MG TAB PO SCH (21:59)
[2020-10-28] MEDS: SODIUM CHLORIDE 0.9% IV SCH ×3 (02:51→20:17)
[2020-10-28] MEDS: PHENYTOIN IV SCH ×3 (02:51→20:17)
[2020-10-28] MEDS: METOCLOPRAMIDE 10 MG/2 ML INJ IV SCH ×5 (03:35→21:21)
[2020-10-28] MEDS: HALOPERIDOL LACTATE 5 MG/1 ML INJ IV PRN ×2 (04:10→11:48)
[2020-10-28] MEDS: LACOSAMIDE 200 MG in SODIUM CHLORIDE 0.9% 100 ML IV SCH ×2 (04:11→15:09)
[2020-10-28] MEDS: HEPARIN 5,000 UNIT/1 ML VIAL SUB-Q SCH ×2 (09:46→21:21)
[2020-10-28] MEDS: DOCUSATE SODIUM 100 MG/10 ML ORAL LIQD PO SCH ×2 (09:46→21:21)
[2020-10-28] MEDS: FAMOTIDINE 20 MG TAB PO SCH ×3 (09:47→21:21)
[2020-10-28] MEDS: levETIRAcetam 1,500 MG in DEXTROSE 5% IN WATER 100 ML IV SCH ×2 (09:49→21:20)
[2020-10-28] MEDS: D5W/0.45% NACL 1,000 ML IV SCH (15:11)
--- NOTE | 2020-10-28 16:02 | Progress Note ---
Assessment and Plan (1) Acute respiratory failure Current Visit: Yes Status: Acute Qualifiers: Respiratory failure complication: hypoxia Qualified Code(s): J96.01 - Acute respiratory failure with hypoxia Plan to address problem: Extubated on 10/26 Stable No need for supplemental oxygen (2) Status epilepticus Current Visit: Yes Status: Acute Plan to address problem: Improved (3) Hypertensive emergency Current Visit: Yes Status: Acute Plan to address problem: Stable (4) Acute encephalopathy Current Visit: Yes Status: Acute Plan to address problem: Improved (5) Leukocytosis Current Visit: Yes Status: Acute Plan to address problem: Improved (6) DVT prophylaxis Current Visit: Yes Status: Acute Plan to address problem: SCD to bilateral lower extremities while in bed, prophylactic anticoagulation (7) Advance care planning Current Visit: Yes Status: Acute Plan to address problem: Disease education conducted, patient is full code, prognosis discussed, +30 minutes. Subjective Date of service: 10/28/20 Principal diagnosis: Ac hypoxemic & hypercapnic resp failure; Status epilepticus; HTNsive emerge Interval history: 65 YO Female with Obesity, HTN, presents to ED for evaluation. Patient is intubated and on ventilatory support at the time of my evaluation and is unable to provide history. Patient history is taken from EMS staff, ED staff. As per staff the patient was found down and unresponsive by her neighbor. Patient toro ellison describe seizure-like activity. EMS was notified and upon arrival the patient was found to be in distress and actively seizing. Patient treated with 2 mg of Ativan which terminated the seizures. The patient was subsequently transported to [facility] for further evaluation and care of the aforementioned symptoms. Patient was seen and evaluated in the emergency department. All lab and imaging studies reviewed. Patient found to have symptoms consistent with status epilepticus which was evidenced by recurrent seizures in the emergency department with concomitant decrease in pulse oximetry to 84% on room air. The patient was also found to have hypertensive emergency with a blood pressure of 223/143. The patient was deemed unable to protect her airway and was intubated for airway protection. Patient also found to have acute encephalopathy. Patient admitted to ICU due to increased risk of decompensation. Critical care team consulted in ED. No prior admission for review. No medication listed at time of admission for reconciliation. Advanced care planning conducted in ED. 10/27/20 Pateint transferred to floor Stable No seizures 10/28/20 Patient says she has support system at home On further inquiry she is trying to depend on her neighbor Relatives in [place] Unable to walk upto restroom No ADLs performed May need SNF placement Objective - Constitutional Vitals: Vital Signs - 12hr 10/28/20 10/28/20 10/28/20 05:27 08:32 10:00 Temperature 99.6 F 99.0 F Pulse Rate 85 87 Respiratory 20 18 Rate Blood Pressure 151/76 161/79 O2 Sat by Pulse 96 99 96 Oximetry 10/28/20 10/28/20 11:23 12:00 Temperature 99.6 F Pulse Rate 85 83 Respiratory 20 Rate Blood Pressure 167/85 O2 Sat by Pulse 98 Oximetry General appearance: Present: no acute distress, well-nourished - EENT Eyes: PERRL, EOM intact ENT: hearing intact, clear oral mucosa Ears: bilateral: normal - Neck Neck: supple, normal ROM - Respiratory Respiratory effort: normal Respiratory: bilateral: CTA - Breasts Breasts: normal - Cardiovascular Heart rate: 78 Rhythm: regular Heart Sounds: Present: S1 & S2. Absent: gallop, rub Extremities: pulses intact, No edema, normal color, Full ROM - Gastrointestinal General gastrointestinal: Present: soft, non-tender, non-distended, normal bowel sounds - Genitourinary Female genitourinary: normal - Integumentary Integumentary: clear, warm, dry - Musculoskeletal Musculoskeletal: 1, strength equal bilaterally - Neurologic Neurologic: moves all extremities - Psychiatric Psychiatric: memory intact, appropriate mood/affect, intact judgment & insight - Labs CBC & Chem 7: 10/30/20 07:53 10/30/20 07:53 HEART Score - HEART Score Troponin: Troponin T 0.015 ng/mL (0.00-0.029) 10/14/20 13:36
--- NOTE | 2020-10-28 16:02 | Progress Note ---
Assessment and Plan (1) Acute respiratory failure Current Visit: Yes Status: Acute Qualifiers: Respiratory failure complication: hypoxia Qualified Code(s): J96.01 - Acute respiratory failure with hypoxia Plan to address problem: Patient extubated (2) Status epilepticus Current Visit: Yes Status: Acute Plan to address problem: Seizures improved (3) Hypertensive emergency Current Visit: Yes Status: Acute Plan to address problem: Monitor blood pressure every shift, continue IV hydralazine, (4) Acute encephalopathy Current Visit: Yes Status: Acute Plan to address problem: Improved Able to make a meaninful conversation (5) Leukocytosis Current Visit: Yes Status: Acute Plan to address problem: Improved (6) DVT prophylaxis Current Visit: Yes Status: Acute Plan to address problem: SCD to bilateral lower extremities while in bed, prophylactic anticoagulation (7) Advance care planning Current Visit: Yes Status: Acute Plan to address problem: Disease education conducted, patient is full code, prognosis discussed, +30 minutes. Subjective Date of service: 10/28/20 Principal diagnosis: Ac hypoxemic & hypercapnic resp failure; Status epilepticus; HTNsive emerge Interval history: 65 YO Female with Obesity, HTN, presents to ED for evaluation. Patient is intubated and on ventilatory support at the time of my evaluation and is unable to provide history. Patient history is taken from EMS staff, ED staff. As per staff the patient was found down and unresponsive by her neighbor. Patient neighbor describe seizure-like activity. EMS was notified and upon arrival the patient was found to be in distress and actively seizing. Patient treated with 2 mg of Ativan which terminated the seizures. The patient was subsequently transported to [facility] for further evaluation and care of the aforementioned symptoms. Patient was seen and evaluated in the emergency department. All lab and imaging studies reviewed. Patient found to have symptoms consistent with status epilepticus which was evidenced by recurrent seizures in the emergency department with concomitant decrease in pulse oximetry to 84% on room air. The patient was also found to have hypertensive emergency with a blood pressure of 223/143. The patient was deemed unable to protect her airway and was intubated for airway protection. Patient also found to have acute encephalopathy. Patient admitted to ICU due to increased risk of decompensation. Critical care team consulted in ED. No prior admission for review. No medication listed at time of admission for reconciliation. Advanced care planning conducted in ED. 10/27/20 Patient extubated yesterday Transfer to Telemetry today Objective - Constitutional Vitals: Vital Signs - 12hr 10/28/20 10/28/20 10/28/20 05:27 08:32 10:00 Temperature 99.6 F 99.0 F Pulse Rate 85 87 Respiratory 20 18 Rate Blood Pressure 151/76 161/79 O2 Sat by Pulse 96 99 96 Oximetry 10/28/20 10/28/20 11:23 12:00 Temperature 99.6 F Pulse Rate 85 83 Respiratory 20 Rate Blood Pressure 167/85 O2 Sat by Pulse 98 Oximetry General appearance: Present: no acute distress, well-nourished - EENT Eyes: PERRL, EOM intact ENT: hearing intact, clear oral mucosa Ears: bilateral: normal - Neck Neck: supple, normal ROM - Respiratory Respiratory effort: normal Respiratory: bilateral: CTA - Breasts Breasts: normal - Cardiovascular Heart rate: 78 Rhythm: regular Heart Sounds: Present: S1 & S2. Absent: gallop, rub Extremities: pulses intact, No edema, normal color, Full ROM - Gastrointestinal General gastrointestinal: Present: soft, non-tender, non-distended, normal bowel sounds - Genitourinary Female genitourinary: normal - Integumentary Integumentary: clear, warm, dry - Musculoskeletal Musculoskeletal: 1, strength equal bilaterally - Neurologic Neurologic: moves all extremities - Psychiatric Psychiatric: memory intact, appropriate mood/affect, intact judgment & insight - Labs CBC & Chem 7: 10/30/20 07:53 10/30/20 07:53 HEART Score - HEART Score Troponin: Troponin T 0.015 ng/mL (0.00-0.029) 10/14/20 13:36
[2020-10-28] MEDS: POLYETHYLENE GLYCOL 3350 17 GM POWDER PO SCH (21:21)
[2020-10-28] MEDS: QUEtiapine 100 MG TAB PO SCH (21:21)
--- NOTE | 2020-10-28 21:59 | Progress Note ---
Assessment and Plan Patient alert, awake. Patient Obese, resting on 2 litres O2. O2 saturation 100%. No complaint of chest pain, shortness of breath or cough at this time. No history of smoking, alcohol or drug abuse. 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 Not . Has no children. Patient running low grade temp. No leukocytosis. Chest xray done 10/20/20 reported Improved left basilar subsegmental atelectasis. Patient admitted for seizures, intubated and extubated. Patient is on albuterol inhaler, S/C heparin and famotidine. Patient is on Keppra for seizures. - Patient Problems (1) Acute respiratory failure Current Visit: Yes Status: Acute Qualifiers: Respiratory failure complication: hypoxia Qualified Code(s): J96.01 - Acute respiratory failure with hypoxia Plan to address problem: Patient intubated and extubated for seizures. Patient presently on 2 litres O2 and O2 saturation running 100% Patient is on albuterol inhaler prn for shortness of breath. (2) Hypertensive emergency Current Visit: Yes Status: Acute Plan to address problem: Management as per primary care. (3) Acute encephalopathy Current Visit: Yes Status: Acute Plan to address problem: Appears improved. Management as per primary care. (4) Seizure Current Visit: Yes Status: Acute Plan to address problem: Patient is on Keppra. Also given dilantin. Subjective Date of service: 10/28/20 Principal diagnosis: Ac hypoxemic & hypercapnic resp failure; Status epilepticus; HTNsive emerge Interval history: Patient alert, awake. Patient Obese, resting on 2 litres O2. O2 saturation 100%. No complaint of chest pain, shortness of breath or cough at this time. No history of smoking, alcohol or drug abuse. 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 Not . Has no children. Patient running low grade temp. No leukocytosis. Chest xray done 10/20/20 reported Improved left basilar subsegmental atelectasis. Patient admitted for seizures, intubated and extubated. Patient is on albuterol inhaler, S/C heparin and famotidine. Patient is on Keppra for seizures. Objective Vital Signs - 12hr 10/28/20 10/28/20 10/28/20 10:00 11:23 12:00 Temperature 99.6 F Pulse Rate 85 83 Respiratory 20 Rate Blood Pressure 167/85 Blood Pressure [Left] O2 Sat by Pulse 96 98 Oximetry 10/28/20 10/28/20 10/28/20 16:25 17:59 19:09 Temperature 100.1 F H 99.0 F Pulse Rate 90 106 H 83 Respiratory 20 20 Rate Blood Pressure 143/78 118/56 Blood Pressure 143/78 [Left] O2 Sat by Pulse 96 97 Oximetry Constitutional: no acute distress, alert Eyes: non-icteric ENT: oropharynx moist, other (ETT 24 cm NATIVIDAD) Neck: supple, no lymphadenopathy, no JVD Effort: normal Ascultation: Bilateral: diminished breath sounds, rhonchi (scant) Percussion: Bilateral: not dull Cardiovascular: regular rate and rhythm Gastrointestinal: normoactive bowel sounds, soft, non-tender, other (Distended, firm) Integumentary: normal Extremities: no cyanosis, no edema, pink and warm, pulses normal Neurologic: non-focal exam (grossly), pupils equal and round, other (drifs to sleep, easily roused, obeys simple commands) Psychiatric: mood appropriate, affect normal, other (sedated) CBC and BMP: 10/24/20 10:10 10/24/20 10:10 ABG, PT/INR, D-dimer: ABG ABG pH 7.393 (7.320-7.450) 10/21/20 13:43 POC ABG pCO2 34.4 mmHg (32.0-48.0) 10/21/20 13:43 ABG pCO2 46.2 mm Hg 10/19/20 04:55 POC ABG pO2 79.6 mmHg (83-108) L 10/21/20 13:43 ABG pO2 84.7 mm Hg (80.0-90.0) 10/19/20 04:55 POC ABG HCO3 20.5 10/21/20 13:43 ABG O2 Saturation 96.7 % (95.0-99.0) 10/19/20 04:55 PT/INR, D-dimer PT 14.0 Sec. (12.2-14.9) 10/14/20 13:36 INR 1.07 (0.87-1.13) 10/14/20 13:36 Abnormal lab findings: Abnormal Labs 10/14/20 10/14/20 10/14/20 13:36 13:36 14:22 WBC 14.7 H RBC Hgb Hct MCHC 35 H Lymph % (Auto) [place] % (Auto) Lymph # (Auto) [place] # (Auto) Seg Neutrophils % Seg Neuts % (Manual) 89.0 H Lymphocytes % (Manual) 4.0 L Seg Neutrophils # Seg Neutrophils # Man 13.1 H Lymphocytes # (Manual) 0.6 L ABG pH 7.298 L POC ABG pCO2 POC ABG pO2 ABG pO2 285.8 H ABG HCO3 ABG O2 Saturation 99.5 H ABG Base Excess -4.1 L ABG Hemoglobin ABG Oxyhemoglobin ABG Sodium ABG Potassium ABG Glucose Oxyhemoglobin Sodium 131 L Potassium Chloride 97.2 L Carbon Dioxide BUN Creatinine Glucose 170 H POC Glucose Calcium Total Protein Albumin Arterial Blood Glucose Phenytoin 10/14/20 10/15/20 10/15/20 17:09 03:35 04:33 WBC RBC Hgb Hct MCHC 36 H Lymph % (Auto) 9.6 L [place] % (Auto) 10.1 H Lymph # (Auto) 1.0 L [place] # (Auto) 1.1 H Seg Neutrophils % 79.8 H Seg Neuts % (Manual) Lymphocytes % (Manual) Seg Neutrophils # 8.4 H Seg Neutrophils # Man Lymphocytes # (Manual) ABG pH 7.536 H POC ABG pCO2 POC ABG pO2 ABG pO2 185.0 H 110.2 H ABG HCO3 ABG O2 Saturation 99.2 H ABG Base Excess ABG Hemoglobin ABG Oxyhemoglobin ABG Sodium ABG Potassium ABG Glucose Oxyhemoglobin Sodium Potassium Chloride Carbon Dioxide BUN Creatinine Glucose POC Glucose Calcium Total Protein Albumin Arterial Blood Glucose Phenytoin 10/15/20 10/15/20 10/16/20 04:33 13:12 00:09 WBC RBC Hgb Hct MCHC Lymph % (Auto) [place] % (Auto) Lymph # (Auto) [place] # (Auto) Seg Neutrophils % Seg Neuts % (Manual) Lymphocytes % (Manual) Seg Neutrophils # Seg Neutrophils # Man Lymphocytes # (Manual) ABG pH 7.297 L POC ABG pCO2 51.0 H POC ABG pO2 56.7 L ABG pO2 ABG HCO3 ABG O2 Saturation ABG Base Excess ABG Hemoglobin ABG Oxyhemoglobin 84.6 L ABG Sodium 134.4 L ABG Potassium ABG Glucose 118 H Oxyhemoglobin Sodium Potassium Chloride Carbon Dioxide BUN Creatinine Glucose 120 H POC Glucose 114 H Calcium Total Protein Albumin Arterial Blood Glucose 118 H Phenytoin 10/16/20 10/16/20 10/17/20 05:42 05:46 04:08 WBC RBC Hgb Hct MCHC Lymph % (Auto) [place] % (Auto) Lymph # (Auto) [place] # (Auto) Seg Neutrophils % Seg Neuts % (Manual) Lymphocytes % (Manual) Seg Neutrophils # Seg Neutrophils # Man Lymphocytes # (Manual) ABG pH POC ABG pCO2 POC ABG pO2 ABG pO2 96.6 H ABG HCO3 ABG O2 Saturation ABG Base Excess ABG Hemoglobin ABG Oxyhemoglobin ABG Sodium 132.6 L ABG Potassium ABG Glucose 112 H Oxyhemoglobin Sodium Potassium Chloride Carbon Dioxide BUN Creatinine Glucose POC Glucose 106 H Calcium Total Protein Albumin Arterial Blood Glucose 112 H Phenytoin 10/17/20 10/17/20 10/17/20 09:23 09:23 10:46 WBC 12.3 H RBC Hgb Hct MCHC Lymph % (Auto) [place] % (Auto) Lymph # (Auto) [place] # (Auto) Seg Neutrophils % Seg Neuts % (Manual) Lymphocytes % (Manual) Seg Neutrophils # Seg Neutrophils # Man Lymphocytes # (Manual) ABG pH POC ABG pCO2 POC ABG pO2 71.6 L ABG pO2 ABG HCO3 ABG O2 Saturation ABG Base Excess ABG Hemoglobin ABG Oxyhemoglobin 92.6 L ABG Sodium 134.8 L ABG Potassium ABG Glucose 105 H Oxyhemoglobin Sodium Potassium Chloride Carbon Dioxide 21 L BUN 19 H Creatinine Glucose POC Glucose Calcium Total Protein Albumin Arterial Blood Glucose 105 H Phenytoin 10/17/20 10/18/20 10/18/20 23:43 04:18 08:32 WBC RBC Hgb Hct MCHC Lymph % (Auto) [place] % (Auto) Lymph # (Auto) [place] # (Auto) Seg Neutrophils % Seg Neuts % (Manual) Lymphocytes % (Manual) Seg Neutrophils # Seg Neutrophils # Man Lymphocytes # (Manual) ABG pH POC ABG pCO2 POC ABG pO2 81.9 L ABG pO2 ABG HCO3 ABG O2 Saturation ABG Base Excess ABG Hemoglobin ABG Oxyhemoglobin ABG Sodium 133.3 L ABG Potassium ABG Glucose 125 H Oxyhemoglobin Sodium Potassium Chloride Carbon Dioxide BUN Creatinine Glucose POC Glucose 118 H Calcium Total Protein Albumin Arterial Blood Glucose 125 H Phenytoin 7.1 L 10/18/20 10/18/20 10/18/20 08:32 08:32 12:34 WBC RBC Hgb Hct MCHC Lymph % (Auto) 12.4 L [place] % (Auto) Lymph # (Auto) [place] # (Auto) Seg Neutrophils % 77.0 H Seg Neuts % (Manual) Lymphocytes % (Manual) Seg Neutrophils # Seg Neutrophils # Man Lymphocytes # (Manual) ABG pH POC ABG pCO2 POC ABG pO2 ABG pO2 ABG HCO3 ABG O2 Saturation ABG Base Excess ABG Hemoglobin ABG Oxyhemoglobin ABG Sodium ABG Potassium ABG Glucose Oxyhemoglobin Sodium 135 L Potassium Chloride Carbon Dioxide BUN 21 H Creatinine Glucose 131 H POC Glucose 121 H Calcium Total Protein Albumin Arterial Blood Glucose Phenytoin 10/18/20 10/18/20 10/19/20 18:12 23:47 04:55 WBC RBC Hgb Hct MCHC Lymph % (Auto) [place] % (Auto) Lymph # (Auto) [place] # (Auto) Seg Neutrophils % Seg Neuts % (Manual) Lymphocytes % (Manual) Seg Neutrophils # Seg Neutrophils # Man Lymphocytes # (Manual) ABG pH POC ABG pCO2 POC ABG pO2 ABG pO2 ABG HCO3 27.1 H ABG O2 Saturation ABG Base Excess ABG Hemoglobin 11.1 L ABG Oxyhemoglobin ABG Sodium ABG Potassium ABG Glucose Oxyhemoglobin 94.9 L Sodium Potassium Chloride Carbon Dioxide BUN Creatinine Glucose POC Glucose 133 H 142 H Calcium Total Protein Albumin Arterial Blood Glucose Phenytoin 10/19/20 10/19/20 10/19/20 06:02 07:59 12:35 WBC RBC Hgb Hct MCHC Lymph % (Auto) [place] % (Auto) Lymph # (Auto) [place] # (Auto) Seg Neutrophils % Seg Neuts % (Manual) Lymphocytes % (Manual) Seg Neutrophils # Seg Neutrophils # Man Lymphocytes # (Manual) ABG pH POC ABG pCO2 POC ABG pO2 ABG pO2 ABG HCO3 ABG O2 Saturation ABG Base Excess ABG Hemoglobin ABG Oxyhemoglobin ABG Sodium ABG Potassium ABG Glucose Oxyhemoglobin Sodium Potassium Chloride Carbon Dioxide BUN Creatinine Glucose 144 H POC Glucose 143 H 132 H Calcium Total Protein Albumin Arterial Blood Glucose Phenytoin 10/19/20 10/19/20 10/19/20 16:12 16:31 23:17 WBC RBC Hgb Hct MCHC Lymph % (Auto) [place] % (Auto) Lymph # (Auto) [place] # (Auto) Seg Neutrophils % Seg Neuts % (Manual) Lymphocytes % (Manual) Seg Neutrophils # Seg Neutrophils # Man Lymphocytes # (Manual) ABG pH 7.461 H POC ABG pCO2 POC ABG pO2 75.8 L ABG pO2 ABG HCO3 ABG O2 Saturation ABG Base Excess ABG Hemoglobin ABG Oxyhemoglobin ABG Sodium 134.0 L ABG Potassium ABG Glucose 156 H Oxyhemoglobin Sodium Potassium Chloride Carbon Dioxide BUN Creatinine Glucose POC Glucose 120 H 128 H Calcium Total Protein Albumin Arterial Blood Glucose 156 H Phenytoin 10/20/20 10/20/20 10/20/20 03:25 05:26 12:12 WBC RBC Hgb Hct MCHC Lymph % (Auto) [place] % (Auto) Lymph # (Auto) [place] # (Auto) Seg Neutrophils % Seg Neuts % (Manual) Lymphocytes % (Manual) Seg Neutrophils # Seg Neutrophils # Man Lymphocytes # (Manual) ABG pH POC ABG pCO2 POC ABG pO2 ABG pO2 ABG HCO3 ABG O2 Saturation ABG Base Excess ABG Hemoglobin ABG Oxyhemoglobin ABG Sodium 134.0 L ABG Potassium ABG Glucose 129 H Oxyhemoglobin Sodium Potassium Chloride Carbon Dioxide BUN Creatinine Glucose POC Glucose 125 H 136 H Calcium Total Protein Albumin Arterial Blood Glucose 129 H Phenytoin 10/20/20 10/21/20 10/21/20 17:58 00:09 04:14 WBC RBC Hgb Hct MCHC Lymph % (Auto) [place] % (Auto) Lymph # (Auto) [place] # (Auto) Seg Neutrophils % Seg Neuts % (Manual) Lymphocytes % (Manual) Seg Neutrophils # Seg Neutrophils # Man Lymphocytes # (Manual) ABG pH POC ABG pCO2 POC ABG pO2 ABG pO2 ABG HCO3 ABG O2 Saturation ABG Base Excess ABG Hemoglobin ABG Oxyhemoglobin ABG Sodium 134.6 L ABG Potassium 4.8 H ABG Glucose 145 H Oxyhemoglobin Sodium Potassium Chloride Carbon Dioxide BUN Creatinine Glucose POC Glucose 148 H 144 H Calcium Total Protein Albumin Arterial Blood Glucose 145 H Phenytoin 10/21/20 10/21/20 10/21/20 04:48 05:17 12:43 WBC RBC Hgb Hct MCHC Lymph % (Auto) [place] % (Auto) Lymph # (Auto) [place] # (Auto) Seg Neutrophils % Seg Neuts % (Manual) Lymphocytes % (Manual) Seg Neutrophils # Seg Neutrophils # Man Lymphocytes # (Manual) ABG pH POC ABG pCO2 POC ABG pO2 ABG pO2 ABG HCO3 ABG O2 Saturation ABG Base Excess ABG Hemoglobin ABG Oxyhemoglobin ABG Sodium ABG Potassium ABG Glucose Oxyhemoglobin Sodium Potassium 5.1 H Chloride Carbon Dioxide BUN 36 H Creatinine 1.3 H D Glucose 137 H POC Glucose 132 H 133 H Calcium Total Protein Albumin Arterial Blood Glucose Phenytoin 10/21/20 10/21/20 10/21/20 13:43 18:45 18:45 WBC 13.2 H RBC Hgb Hct MCHC Lymph % (Auto) 7.9 L [place] % (Auto) 11.1 H Lymph # (Auto) 1.1 L [place] # (Auto) 1.5 H Seg Neutrophils % 79.8 H Seg Neuts % (Manual) Lymphocytes % (Manual) Seg Neutrophils # 10.6 H Seg Neutrophils # Man Lymphocytes # (Manual) ABG pH POC ABG pCO2 POC ABG pO2 79.6 L ABG pO2 ABG HCO3 ABG O2 Saturation ABG Base Excess ABG Hemoglobin ABG Oxyhemoglobin ABG Sodium 135.8 L ABG Potassium 4.9 H ABG Glucose 155 H Oxyhemoglobin Sodium Potassium Chloride Carbon Dioxide BUN Creatinine Glucose POC Glucose Calcium Total Protein Albumin Arterial Blood Glucose 155 H Phenytoin 6.7 L 10/22/20 10/22/20 10/22/20 04:48 05:31 12:30 WBC RBC Hgb Hct MCHC Lymph % (Auto) [place] % (Auto) Lymph # (Auto) [place] # (Auto) Seg Neutrophils % Seg Neuts % (Manual) Lymphocytes % (Manual) Seg Neutrophils # Seg Neutrophils # Man Lymphocytes # (Manual) ABG pH POC ABG pCO2 POC ABG pO2 ABG pO2 ABG HCO3 ABG O2 Saturation ABG Base Excess ABG Hemoglobin ABG Oxyhemoglobin ABG Sodium ABG Potassium ABG Glucose Oxyhemoglobin Sodium Potassium Chloride Carbon Dioxide BUN Creatinine Glucose POC Glucose 124 H 124 H Calcium Total Protein Albumin Arterial Blood Glucose Phenytoin 6.6 L 10/22/20 10/23/20 10/23/20 18:04 00:09 00:16 WBC RBC Hgb Hct MCHC Lymph % (Auto) [place] % (Auto) Lymph # (Auto) [place] # (Auto) Seg Neutrophils % Seg Neuts % (Manual) Lymphocytes % (Manual) Seg Neutrophils # Seg Neutrophils # Man Lymphocytes # (Manual) ABG pH POC ABG pCO2 POC ABG pO2 ABG pO2 ABG HCO3 ABG O2 Saturation ABG Base Excess ABG Hemoglobin ABG Oxyhemoglobin ABG Sodium ABG Potassium ABG Glucose Oxyhemoglobin Sodium Potassium Chloride 109.6 H Carbon Dioxide 16 L BUN 68 H Creatinine 2.3 H D Glucose 148 H POC Glucose 130 H 149 H Calcium 8.3 L Total Protein Albumin Arterial Blood Glucose Phenytoin 10/23/20 10/23/20 10/23/20 05:33 08:07 11:43 WBC RBC 3.41 L Hgb 9.7 L Hct 29.8 L MCHC Lymph % (Auto) 9.9 L [place] % (Auto) 15.0 H Lymph # (Auto) 0.8 L [place] # (Auto) 1.2 H Seg Neutrophils % 72.5 H Seg Neuts % (Manual) Lymphocytes % (Manual) Seg Neutrophils # Seg Neutrophils # Man Lymphocytes # (Manual) ABG pH POC ABG pCO2 POC ABG pO2 ABG pO2 ABG HCO3 ABG O2 Saturation ABG Base Excess ABG Hemoglobin ABG Oxyhemoglobin ABG Sodium ABG Potassium ABG Glucose Oxyhemoglobin Sodium Potassium Chloride Carbon Dioxide BUN Creatinine Glucose POC Glucose 135 H 140 H Calcium Total Protein Albumin Arterial Blood Glucose Phenytoin 10/23/20 10/24/20 10/24/20 17:50 00:08 05:22 WBC RBC Hgb Hct MCHC Lymph % (Auto) [place] % (Auto) Lymph # (Auto) [place] # (Auto) Seg Neutrophils % Seg Neuts % (Manual) Lymphocytes % (Manual) Seg Neutrophils # Seg Neutrophils # Man Lymphocytes # (Manual) ABG pH POC ABG pCO2 POC ABG pO2 ABG pO2 ABG HCO3 ABG O2 Saturation ABG Base Excess ABG Hemoglobin ABG Oxyhemoglobin ABG Sodium ABG Potassium ABG Glucose Oxyhemoglobin Sodium Potassium Chloride Carbon Dioxide BUN Creatinine Glucose POC Glucose 121 H 131 H 132 H Calcium Total Protein Albumin Arterial Blood Glucose Phenytoin 10/24/20 10/24/20 10/24/20 10:10 10:10 11:23 WBC RBC 3.61 L Hgb Hct MCHC Lymph % (Auto) 8.9 L [place] % (Auto) 10.4 H Lymph # (Auto) 0.9 L [place] # (Auto) 1.0 H Seg Neutrophils % 78.3 H Seg Neuts % (Manual) Lymphocytes % (Manual) Seg Neutrophils # 7.8 H Seg Neutrophils # Man Lymphocytes # (Manual) ABG pH POC ABG pCO2 POC ABG pO2 ABG pO2 ABG HCO3 ABG O2 Saturation ABG Base Excess ABG Hemoglobin ABG Oxyhemoglobin ABG Sodium ABG Potassium ABG Glucose Oxyhemoglobin Sodium 146 H Potassium Chloride 115.8 H Carbon Dioxide BUN 40 H Creatinine Glucose 139 H POC Glucose 121 H Calcium Total Protein 6.2 L Albumin 2.9 L Arterial Blood Glucose Phenytoin 10/24/20 23:45 WBC RBC Hgb Hct MCHC Lymph % (Auto) [place] % (Auto) Lymph # (Auto) [place] # (Auto) Seg Neutrophils % Seg Neuts % (Manual) Lymphocytes % (Manual) Seg Neutrophils # Seg Neutrophils # Man Lymphocytes # (Manual) ABG pH POC ABG pCO2 POC ABG pO2 ABG pO2 ABG HCO3 ABG O2 Saturation ABG Base Excess ABG Hemoglobin ABG Oxyhemoglobin ABG Sodium ABG Potassium ABG Glucose Oxyhemoglobin Sodium Potassium Chloride Carbon Dioxide BUN Creatinine Glucose POC Glucose 112 H Calcium Total Protein Albumin Arterial Blood Glucose Phenytoin Chest x-ray: report reviewed, image reviewed Additional Studies: CHEST 1 VIEW 10/20/2020 4:39 AM INDICATION / CLINICAL INFORMATION: follow up respiratory failure. COMPARISON: 10/19/2020 FINDINGS: SUPPORT DEVICES: Stable, satisfactory device positioning. HEART / MEDIASTINUM: Stable. LUNGS / PLEURA: Improved left basilar subsegmental atelectasis. No pneumothorax. ADDITIONAL FINDINGS: No significant additional findings. IMPRESSION: 1. Improved left basilar subsegmental atelectasis. Allied health notes reviewed: RT
[2020-10-29] MEDS: SODIUM CHLORIDE 0.9% IV SCH ×2 (02:55→10:39)
[2020-10-29] MEDS: PHENYTOIN IV SCH ×2 (02:55→10:39)
[2020-10-29] MEDS: METOCLOPRAMIDE 10 MG/2 ML INJ IV SCH ×4 (02:56→22:05)
[2020-10-29] MEDS: LACOSAMIDE 200 MG in SODIUM CHLORIDE 0.9% 100 ML IV SCH ×2 (04:57→17:37)
[2020-10-29] MEDS: HEPARIN 5,000 UNIT/1 ML VIAL SUB-Q SCH ×2 (10:36→21:55)
[2020-10-29] MEDS: DOCUSATE SODIUM 100 MG/10 ML ORAL LIQD PO SCH ×2 (10:36→21:55)
[2020-10-29] MEDS: FAMOTIDINE 20 MG TAB PO SCH ×2 (10:36→21:54)
[2020-10-29] MEDS: levETIRAcetam 1,500 MG in DEXTROSE 5% IN WATER 100 ML IV SCH (10:39)
[2020-10-29] MEDS: D5W/0.45% NACL 1,000 ML IV SCH (10:45)
--- NOTE | 2020-10-29 12:17 | Progress Note ---
Assessment and Plan Acute hypoxemic and hypercapnic respiratory failure. Acute encephalopathy (Toxic / metabolic). Status epilepticus Ileus, Bowlegs syndrome Hypertensive emergency at presentation History of a brain aneurysm repair. Obesity. History of hypertension. Leukocytosis-resolved Hypernatremia Hyperglycemia. Aspiration precautions CXR and ABG as clinically indicated Keep K at 4, Mag at 2 and Phos at 2.5 to optimize respiratory muscle function - continue Vimpat & Keppra (Adjust per neurologist) - continue to wean supplemental oxygen for target O2 sats > 92% - accuchecks with glycemic control per SSI (While critically ill target blood glucose of 140-180 mg/dL; avoid hypoglycemia) - avoid nephrotoxins, renally dose all medications - continue to avoid benzodiazepines, reduce the possibility of delirium - prn analgesia per CPOT score - Maintenance of sleep-wake cycle, avoid delirium - VTE prophylaxis -MINIBUS DRIVER evaluation and treatment on going - PT/OT/ROM exercises - continue mobility protocol, off loading, frequent turning for pressure ulcer prevention - continue other care per attending / other consultants CONDITION: Fair PROGNOSIS: Fair CODE STATUS: FULL CODE Subjective Date of service: 10/29/20 Principal diagnosis: Ac hypoxemic & hypercapnic resp failure; Status epilepticus; HTNsive emerge Interval history: Patient is seen today for: Ac hypoxemic and hypercapnic resp failure; Ac. encephalopathy; Status epilepticus; HTNsive emergency; History of a brain aneurysm repair; Obesity Seen and examined at bedside; 24hour events reviewed; nursing and respiratory care staff consulted; no adverse overnight events reported to me; resting peacefully in bed;intrmittent confusion, with mittens on; 2l oxygen via NC; no seizures reported, no fevers, no vomiting, no diarrhea Objective Vital Signs - 12hr 10/29/20 10/29/20 00:27 05:22 Temperature 98.2 F 98 F Pulse Rate 68 68 Respiratory 20 Rate Blood Pressure 121/68 131/68 [Left] O2 Sat by Pulse 99 Oximetry Constitutional: no acute distress, alert Eyes: non-icteric ENT: oropharynx moist Neck: supple, no lymphadenopathy, no JVD Effort: normal Ascultation: Bilateral: diminished breath sounds, rhonchi (scant) Percussion: Bilateral: not dull Cardiovascular: regular rate and rhythm, other (S1,S2) Gastrointestinal: normoactive bowel sounds, soft, non-tender, other (Distended, firm) Integumentary: normal Extremities: no cyanosis, no edema, pink and warm, pulses normal Neurologic: non-focal exam (grossly, moves all extremities), pupils equal and round, other (drifts to sleep, easily roused, intermittent confusion) CBC and BMP: 10/30/20 07:53 10/30/20 07:53 ABG, PT/INR, D-dimer: ABG ABG pH 7.393 (7.320-7.450) 10/21/20 13:43 POC ABG pCO2 34.4 mmHg (32.0-48.0) 10/21/20 13:43 ABG pCO2 46.2 mm Hg 10/19/20 04:55 POC ABG pO2 79.6 mmHg (83-108) L 10/21/20 13:43 ABG pO2 84.7 mm Hg (80.0-90.0) 10/19/20 04:55 POC ABG HCO3 20.5 10/21/20 13:43 ABG O2 Saturation 96.7 % (95.0-99.0) 10/19/20 04:55 PT/INR, D-dimer PT 14.0 Sec. (12.2-14.9) 10/14/20 13:36 INR 1.07 (0.87-1.13) 10/14/20 13:36 Abnormal lab findings: Abnormal Labs 10/14/20 10/14/20 10/14/20 13:36 13:36 14:22 WBC 14.7 H RBC Hgb Hct MCHC 35 H Lymph % (Auto) [place] % (Auto) Lymph # (Auto) [place] # (Auto) Seg Neutrophils % Seg Neuts % (Manual) 89.0 H Lymphocytes % (Manual) 4.0 L Seg Neutrophils # Seg Neutrophils # Man 13.1 H Lymphocytes # (Manual) 0.6 L ABG pH 7.298 L POC ABG pCO2 POC ABG pO2 ABG pO2 285.8 H ABG HCO3 ABG O2 Saturation 99.5 H ABG Base Excess -4.1 L ABG Hemoglobin ABG Oxyhemoglobin ABG Sodium ABG Potassium ABG Glucose Oxyhemoglobin Sodium 131 L Potassium Chloride 97.2 L Carbon Dioxide BUN Creatinine Glucose 170 H POC Glucose Calcium Total Protein Albumin Arterial Blood Glucose Phenytoin 10/14/20 10/15/2020 17:09 03:35 04:33 WBC RBC Hgb Hct MCHC 36 H Lymph % (Auto) 9.6 L [place] % (Auto) 10.1 H Lymph # (Auto) 1.0 L [place] # (Auto) 1.1 H Seg Neutrophils % 79.8 H Seg Neuts % (Manual) Lymphocytes % (Manual) Seg Neutrophils # 8.4 H Seg Neutrophils # Man Lymphocytes # (Manual) ABG pH 7.536 H POC ABG pCO2 POC ABG pO2 ABG pO2 185.0 H 110.2 H ABG HCO3 ABG O2 Saturation 99.2 H ABG Base Excess ABG Hemoglobin ABG Oxyhemoglobin ABG Sodium ABG Potassium ABG Glucose Oxyhemoglobin Sodium Potassium Chloride Carbon Dioxide BUN Creatinine Glucose POC Glucose Calcium Total Protein Albumin Arterial Blood Glucose Phenytoin 10/15/20 10/15/20 10/16/20 04:33 13:12 00:09 WBC RBC Hgb Hct MCHC Lymph % (Auto) [place] % (Auto) Lymph # (Auto) [place] # (Auto) Seg Neutrophils % Seg Neuts % (Manual) Lymphocytes % (Manual) Seg Neutrophils # Seg Neutrophils # Man Lymphocytes # (Manual) ABG pH 7.297 L POC ABG pCO2 51.0 H POC ABG pO2 56.7 L ABG pO2 ABG HCO3 ABG O2 Saturation ABG Base Excess ABG Hemoglobin ABG Oxyhemoglobin 84.6 L ABG Sodium 134.4 L ABG Potassium ABG Glucose 118 H Oxyhemoglobin Sodium Potassium Chloride Carbon Dioxide BUN Creatinine Glucose 120 H POC Glucose 114 H Calcium Total Protein Albumin Arterial Blood Glucose 118 H Phenytoin 10/16/20 10/16/20 10/17/20 05:42 05:46 04:08 WBC RBC Hgb Hct MCHC Lymph % (Auto) [place] % (Auto) Lymph # (Auto) [place] # (Auto) Seg Neutrophils % Seg Neuts % (Manual) Lymphocytes % (Manual) Seg Neutrophils # Seg Neutrophils # Man Lymphocytes # (Manual) ABG pH POC ABG pCO2 POC ABG pO2 ABG pO2 96.6 H ABG HCO3 ABG O2 Saturation ABG Base Excess ABG Hemoglobin ABG Oxyhemoglobin ABG Sodium 132.6 L ABG Potassium ABG Glucose 112 H Oxyhemoglobin Sodium Potassium Chloride Carbon Dioxide BUN Creatinine Glucose POC Glucose 106 H Calcium Total Protein Albumin Arterial Blood Glucose 112 H Phenytoin 10/17/20 10/17/20 10/17/20 09:23 09:23 10:46 WBC 12.3 H RBC Hgb Hct MCHC Lymph % (Auto) [place] % (Auto) Lymph # (Auto) [place] # (Auto) Seg Neutrophils % Seg Neuts % (Manual) Lymphocytes % (Manual) Seg Neutrophils # Seg Neutrophils # Man Lymphocytes # (Manual) ABG pH POC ABG pCO2 POC ABG pO2 71.6 L ABG pO2 ABG HCO3 ABG O2 Saturation ABG Base Excess ABG Hemoglobin ABG Oxyhemoglobin 92.6 L ABG Sodium 134.8 L ABG Potassium ABG Glucose 105 H Oxyhemoglobin Sodium Potassium Chloride Carbon Dioxide 21 L BUN 19 H Creatinine Glucose POC Glucose Calcium Total Protein Albumin Arterial Blood Glucose 105 H Phenytoin 10/17/20 10/18/20 10/18/20 23:43 04:18 08:32 WBC RBC Hgb Hct MCHC Lymph % (Auto) [place] % (Auto) Lymph # (Auto) [place] # (Auto) Seg Neutrophils % Seg Neuts % (Manual) Lymphocytes % (Manual) Seg Neutrophils # Seg Neutrophils # Man Lymphocytes # (Manual) ABG pH POC ABG pCO2 POC ABG pO2 81.9 L ABG pO2 ABG HCO3 ABG O2 Saturation ABG Base Excess ABG Hemoglobin ABG Oxyhemoglobin ABG Sodium 133.3 L ABG Potassium ABG Glucose 125 H Oxyhemoglobin Sodium Potassium Chloride Carbon Dioxide BUN Creatinine Glucose POC Glucose 118 H Calcium Total Protein Albumin Arterial Blood Glucose 125 H Phenytoin 7.1 L 10/18/20 10/18/20 10/18/20 08:32 08:32 12:34 WBC RBC Hgb Hct MCHC Lymph % (Auto) 12.4 L [place] % (Auto) Lymph # (Auto) [place] # (Auto) Seg Neutrophils % 77.0 H Seg Neuts % (Manual) Lymphocytes % (Manual) Seg Neutrophils # Seg Neutrophils # Man Lymphocytes # (Manual) ABG pH POC ABG pCO2 POC ABG pO2 ABG pO2 ABG HCO3 ABG O2 Saturation ABG Base Excess ABG Hemoglobin ABG Oxyhemoglobin ABG Sodium ABG Potassium ABG Glucose Oxyhemoglobin Sodium 135 L Potassium Chloride Carbon Dioxide BUN 21 H Creatinine Glucose 131 H POC Glucose 121 H Calcium Total Protein Albumin Arterial Blood Glucose Phenytoin 10/18/20 10/18/20 10/19/20 18:12 23:47 04:55 WBC RBC Hgb Hct MCHC Lymph % (Auto) [place] % (Auto) Lymph # (Auto) [place] # (Auto) Seg Neutrophils % Seg Neuts % (Manual) Lymphocytes % (Manual) Seg Neutrophils # Seg Neutrophils # Man Lymphocytes # (Manual) ABG pH POC ABG pCO2 POC ABG pO2 ABG pO2 ABG HCO3 27.1 H ABG O2 Saturation ABG Base Excess ABG Hemoglobin 11.1 L ABG Oxyhemoglobin ABG Sodium ABG Potassium ABG Glucose Oxyhemoglobin 94.9 L Sodium Potassium Chloride Carbon Dioxide BUN Creatinine Glucose POC Glucose 133 H 142 H Calcium Total Protein Albumin Arterial Blood Glucose Phenytoin 10/19/20 10/19/20 10/19/20 06:02 07:59 12:35 WBC RBC Hgb Hct MCHC Lymph % (Auto) [place] % (Auto) Lymph # (Auto) [place] # (Auto) Seg Neutrophils % Seg Neuts % (Manual) Lymphocytes % (Manual) Seg Neutrophils # Seg Neutrophils # Man Lymphocytes # (Manual) ABG pH POC ABG pCO2 POC ABG pO2 ABG pO2 ABG HCO3 ABG O2 Saturation ABG Base Excess ABG Hemoglobin ABG Oxyhemoglobin ABG Sodium ABG Potassium ABG Glucose Oxyhemoglobin Sodium Potassium Chloride Carbon Dioxide BUN Creatinine Glucose 144 H POC Glucose 143 H 132 H Calcium Total Protein Albumin Arterial Blood Glucose Phenytoin 10/19/20 10/19/20 10/19/20 16:12 16:31 23:17 WBC RBC Hgb Hct MCHC Lymph % (Auto) [place] % (Auto) Lymph # (Auto) [place] # (Auto) Seg Neutrophils % Seg Neuts % (Manual) Lymphocytes % (Manual) Seg Neutrophils # Seg Neutrophils # Man Lymphocytes # (Manual) ABG pH 7.461 H POC ABG pCO2 POC ABG pO2 75.8 L ABG pO2 ABG HCO3 ABG O2 Saturation ABG Base Excess ABG Hemoglobin ABG Oxyhemoglobin ABG Sodium 134.0 L ABG Potassium ABG Glucose 156 H Oxyhemoglobin Sodium Potassium Chloride Carbon Dioxide BUN Creatinine Glucose POC Glucose 120 H 128 H Calcium Total Protein Albumin Arterial Blood Glucose 156 H Phenytoin 10/20/20 10/20/20 10/20/20 03:25 05:26 12:12 WBC RBC Hgb Hct MCHC Lymph % (Auto) [place] % (Auto) Lymph # (Auto) [place] # (Auto) Seg Neutrophils % Seg Neuts % (Manual) Lymphocytes % (Manual) Seg Neutrophils # Seg Neutrophils # Man Lymphocytes # (Manual) ABG pH POC ABG pCO2 POC ABG pO2 ABG pO2 ABG HCO3 ABG O2 Saturation ABG Base Excess ABG Hemoglobin ABG Oxyhemoglobin ABG Sodium 134.0 L ABG Potassium ABG Glucose 129 H Oxyhemoglobin Sodium Potassium Chloride Carbon Dioxide BUN Creatinine Glucose POC Glucose 125 H 136 H Calcium Total Protein Albumin Arterial Blood Glucose 129 H Phenytoin 10/20/20 10/21/20 10/21/20 17:58 00:09 04:14 WBC RBC Hgb Hct MCHC Lymph % (Auto) [place] % (Auto) Lymph # (Auto) [place] # (Auto) Seg Neutrophils % Seg Neuts % (Manual) Lymphocytes % (Manual) Seg Neutrophils # Seg Neutrophils # Man Lymphocytes # (Manual) ABG pH POC ABG pCO2 POC ABG pO2 ABG pO2 ABG HCO3 ABG O2 Saturation ABG Base Excess ABG Hemoglobin ABG Oxyhemoglobin ABG Sodium 134.6 L ABG Potassium 4.8 H ABG Glucose 145 H Oxyhemoglobin Sodium Potassium Chloride Carbon Dioxide BUN Creatinine Glucose POC Glucose 148 H 144 H Calcium Total Protein Albumin Arterial Blood Glucose 145 H Phenytoin 10/21/20 10/21/20 10/21/20 04:48 05:17 12:43 WBC RBC Hgb Hct MCHC Lymph % (Auto) [place] % (Auto) Lymph # (Auto) [place] # (Auto) Seg Neutrophils % Seg Neuts % (Manual) Lymphocytes % (Manual) Seg Neutrophils # Seg Neutrophils # Man Lymphocytes # (Manual) ABG pH POC ABG pCO2 POC ABG pO2 ABG pO2 ABG HCO3 ABG O2 Saturation ABG Base Excess ABG Hemoglobin ABG Oxyhemoglobin ABG Sodium ABG Potassium ABG Glucose Oxyhemoglobin Sodium Potassium 5.1 H Chloride Carbon Dioxide BUN 36 H Creatinine 1.3 H D Glucose 137 H POC Glucose 132 H 133 H Calcium Total Protein Albumin Arterial Blood Glucose Phenytoin 10/21/20 10/21/20 10/21/20 13:43 18:45 18:45 WBC 13.2 H RBC Hgb Hct MCHC Lymph % (Auto) 7.9 L [place] % (Auto) 11.1 H Lymph # (Auto) 1.1 L [place] # (Auto) 1.5 H Seg Neutrophils % 79.8 H Seg Neuts % (Manual) Lymphocytes % (Manual) Seg Neutrophils # 10.6 H Seg Neutrophils # Man Lymphocytes # (Manual) ABG pH POC ABG pCO2 POC ABG pO2 79.6 L ABG pO2 ABG HCO3 ABG O2 Saturation ABG Base Excess ABG Hemoglobin ABG Oxyhemoglobin ABG Sodium 135.8 L ABG Potassium 4.9 H ABG Glucose 155 H Oxyhemoglobin Sodium Potassium Chloride Carbon Dioxide BUN Creatinine Glucose POC Glucose Calcium Total Protein Albumin Arterial Blood Glucose 155 H Phenytoin 6.7 L 10/22/20 10/22/20 10/22/20 04:48 05:31 12:30 WBC RBC Hgb Hct MCHC Lymph % (Auto) [place] % (Auto) Lymph # (Auto) [place] # (Auto) Seg Neutrophils % Seg Neuts % (Manual) Lymphocytes % (Manual) Seg Neutrophils # Seg Neutrophils # Man Lymphocytes # (Manual) ABG pH POC ABG pCO2 POC ABG pO2 ABG pO2 ABG HCO3 ABG O2 Saturation ABG Base Excess ABG Hemoglobin ABG Oxyhemoglobin ABG Sodium ABG Potassium ABG Glucose Oxyhemoglobin Sodium Potassium Chloride Carbon Dioxide BUN Creatinine Glucose POC Glucose 124 H 124 H Calcium Total Protein Albumin Arterial Blood Glucose Phenytoin 6.6 L 10/22/20 10/23/20 10/23/20 18:04 00:09 00:16 WBC RBC Hgb Hct MCHC Lymph % (Auto) [place] % (Auto) Lymph # (Auto) [place] # (Auto) Seg Neutrophils % Seg Neuts % (Manual) Lymphocytes % (Manual) Seg Neutrophils # Seg Neutrophils # Man Lymphocytes # (Manual) ABG pH POC ABG pCO2 POC ABG pO2 ABG pO2 ABG HCO3 ABG O2 Saturation ABG Base Excess ABG Hemoglobin ABG Oxyhemoglobin ABG Sodium ABG Potassium ABG Glucose Oxyhemoglobin Sodium Potassium Chloride 109.6 H Carbon Dioxide 16 L BUN 68 H Creatinine 2.3 H D Glucose 148 H POC Glucose 130 H 149 H Calcium 8.3 L Total Protein Albumin Arterial Blood Glucose Phenytoin 10/23/20 10/23/20 10/23/20 05:33 08:07 11:43 WBC RBC 3.41 L Hgb 9.7 L Hct 29.8 L MCHC Lymph % (Auto) 9.9 L [place] % (Auto) 15.0 H Lymph # (Auto) 0.8 L [place] # (Auto) 1.2 H Seg Neutrophils % 72.5 H Seg Neuts % (Manual) Lymphocytes % (Manual) Seg Neutrophils # Seg Neutrophils # Man Lymphocytes # (Manual) ABG pH POC ABG pCO2 POC ABG pO2 ABG pO2 ABG HCO3 ABG O2 Saturation ABG Base Excess ABG Hemoglobin ABG Oxyhemoglobin ABG Sodium ABG Potassium ABG Glucose Oxyhemoglobin Sodium Potassium Chloride Carbon Dioxide BUN Creatinine Glucose POC Glucose 135 H 140 H Calcium Total Protein Albumin Arterial Blood Glucose Phenytoin 10/23/20 10/24/20 10/24/20 17:50 00:08 05:22 WBC RBC Hgb Hct MCHC Lymph % (Auto) [place] % (Auto) Lymph # (Auto) [place] # (Auto) Seg Neutrophils % Seg Neuts % (Manual) Lymphocytes % (Manual) Seg Neutrophils # Seg Neutrophils # Man Lymphocytes # (Manual) ABG pH POC ABG pCO2 POC ABG pO2 ABG pO2 ABG HCO3 ABG O2 Saturation ABG Base Excess ABG Hemoglobin ABG Oxyhemoglobin ABG Sodium ABG Potassium ABG Glucose Oxyhemoglobin Sodium Potassium Chloride Carbon Dioxide BUN Creatinine Glucose POC Glucose 121 H 131 H 132 H Calcium Total Protein Albumin Arterial Blood Glucose Phenytoin 10/24/20 10/24/20 10/24/20 10:10 10:10 11:23 WBC RBC 3.61 L Hgb Hct MCHC Lymph % (Auto) 8.9 L [place] % (Auto) 10.4 H Lymph # (Auto) 0.9 L [place] # (Auto) 1.0 H Seg Neutrophils % 78.3 H Seg Neuts % (Manual) Lymphocytes % (Manual) Seg Neutrophils # 7.8 H Seg Neutrophils # Man Lymphocytes # (Manual) ABG pH POC ABG pCO2 POC ABG pO2 ABG pO2 ABG HCO3 ABG O2 Saturation ABG Base Excess ABG Hemoglobin ABG Oxyhemoglobin ABG Sodium ABG Potassium ABG Glucose Oxyhemoglobin Sodium 146 H Potassium Chloride 115.8 H Carbon Dioxide BUN 40 H Creatinine Glucose 139 H POC Glucose 121 H Calcium Total Protein 6.2 L Albumin 2.9 L Arterial Blood Glucose Phenytoin 10/24/20 10/29/20 10/29/20 23:45 01:09 06:01 WBC RBC Hgb Hct MCHC Lymph % (Auto) [place] % (Auto) Lymph # (Auto) [place] # (Auto) Seg Neutrophils % Seg Neuts % (Manual) Lymphocytes % (Manual) Seg Neutrophils # Seg Neutrophils # Man Lymphocytes # (Manual) ABG pH POC ABG pCO2 POC ABG pO2 ABG pO2 ABG HCO3 ABG O2 Saturation ABG Base Excess ABG Hemoglobin ABG Oxyhemoglobin ABG Sodium ABG Potassium ABG Glucose Oxyhemoglobin Sodium Potassium Chloride Carbon Dioxide BUN Creatinine Glucose POC Glucose 112 H 128 H 120 H Calcium Total Protein Albumin Arterial Blood Glucose Phenytoin 10/29/20 11:22 WBC RBC Hgb Hct MCHC Lymph % (Auto) [place] % (Auto) Lymph # (Auto) [place] # (Auto) Seg Neutrophils % Seg Neuts % (Manual) Lymphocytes % (Manual) Seg Neutrophils # Seg Neutrophils # Man Lymphocytes # (Manual) ABG pH POC ABG pCO2 POC ABG pO2 ABG pO2 ABG HCO3 ABG O2 Saturation ABG Base Excess ABG Hemoglobin ABG Oxyhemoglobin ABG Sodium ABG Potassium ABG Glucose Oxyhemoglobin Sodium Potassium Chloride Carbon Dioxide BUN Creatinine Glucose POC Glucose 143 H Calcium Total Protein Albumin Arterial Blood Glucose Phenytoin Allied health notes reviewed: nursing
[2020-10-29] MEDS: ACETAMINOPHEN 325 MG TAB PO PRN (12:34)
--- NOTE | 2020-10-29 15:18 | Progress Note ---
Assessment and Plan A/p 1) Acute respiratory failure Current Visit: Yes Status: Acute Qualifiers: Respiratory failure complication: hypoxia Qualified Code(s): J96.01 - Acute respiratory failure with hypoxia Plan to address problem: Extubated on 10/26 Stable No need for supplemental oxygen (2) Status epilepticus Current Visit: Yes Status: Acute Plan to address problem: Improved (3) Hypertensive emergency Current Visit: Yes Status: Acute Plan to address problem: Stable (4) Acute encephalopathy Current Visit: Yes Status: Acute Plan to address problem: Improved (5) Leukocytosis Current Visit: Yes Status: Acute Plan to address problem: Improved (6) DVT prophylaxis Current Visit: Yes Status: Acute Plan to address problem: SCD to bilateral lower extremities while in bed, prophylactic anticoagulation (7) Advance care planning Current Visit: Yes Status: Acute Plan to address problem: Disease education conducted, patient is full code, prognosis discussed, +30 minutes. ( Subjective Date of service: 10/29/20 Principal diagnosis: Ac hypoxemic & hypercapnic resp failure; Status epilepticus; HTNsive emerge Interval history: 65 YO Female with Obesity, HTN, presents to ED for evaluation. Patient is intubated and on ventilatory support at the time of my evaluation and is unable to provide history. Patient history is taken from EMS staff, ED staff. As per staff the patient was found down and unresponsive by her neighbor. Patient neighbor describe seizure-like activity. EMS was notified and upon arrival the patient was found to be in distress and actively seizing. Patient treated with 2 mg of Ativan which terminated the seizures. The patient was subsequently transported to [facility] for further evaluation and care of the aforementioned symptoms. Patient was seen and evaluated in the emergency department. All lab and imaging studies reviewed. Patient found to have symptoms consistent with status epilepticus which was evidenced by recurrent seizures in the emergency department with concomitant decrease in pulse oximetry to 84% on room air. The patient was also found to have hypertensive emergency with a blood pressure of 223/143. The patient was deemed unable to protect her airway and was intubated for airway protection. Patient also found to have acute encephalopathy. Patient admitted to ICU due to increased risk of decompensation. Critical care team consulted in ED. No prior admission for review. No medication listed at time of admission for reconciliation. Advanced care planning conducted in ED. 10/27/20 Pateint transferred to floor Stable No seizures 10/28/20 Patient says she has support system at home On further inquiry she is trying to depend on her neighbor Relatives in [place] Unable to walk upto restroom No ADLs performed May need SNF placement 10/29/20 Placement issues Needs SNF Objective - Constitutional Vitals: Vital Signs - 12hr 10/29/20 10/29/20 10/29/20 05:22 12:29 13:22 Temperature 98 F Pulse Rate 68 98 H Respiratory 20 Rate Blood Pressure 131/68 [Left] O2 Sat by Pulse 99 98 Oximetry General appearance: Present: no acute distress, well-nourished - EENT Eyes: PERRL, EOM intact ENT: hearing intact, clear oral mucosa Ears: bilateral: normal - Neck Neck: supple, normal ROM - Respiratory Respiratory effort: normal Respiratory: bilateral: CTA - Breasts Breasts: normal - Cardiovascular Heart rate: 78 Rhythm: regular Heart Sounds: Present: S1 & S2. Absent: gallop, rub Extremities: pulses intact, No edema, normal color, Full ROM - Gastrointestinal General gastrointestinal: Present: soft, non-tender, non-distended, normal bowel sounds - Genitourinary Female genitourinary: normal - Integumentary Integumentary: clear, warm, dry - Musculoskeletal Musculoskeletal: 1, strength equal bilaterally - Neurologic Neurologic: moves all extremities - Psychiatric Psychiatric: memory intact, appropriate mood/affect, intact judgment & insight - Allied health notes Allied health notes reviewed: nursing, case management - Labs CBC & Chem 7: 10/30/20 07:53 10/30/20 07:53 Labs: Abnormal lab results 10/29/20 10/29/20 10/29/20 Range/Units 01:09 06:01 11:22 POC Glucose 128 H 120 H 143 H (70-105) mg/dL HEART Score - HEART Score Troponin: Troponin T 0.015 ng/mL (0.00-0.029) 10/14/20 13:36
[2020-10-29] MEDS: PHENYTOIN 100 MG CAPSULE.ER PO SCH ×2 (17:32→22:04)
[2020-10-29] MEDS: LACOSAMIDE 100 MG TAB PO SCH (21:54)
[2020-10-29] MEDS: levETIRAcetam 500 MG TAB PO SCH (21:54)
[2020-10-29] MEDS: QUEtiapine 100 MG TAB PO SCH (21:54)
[2020-10-29] MEDS: POLYETHYLENE GLYCOL 3350 17 GM POWDER PO SCH (21:56)
[2020-10-30] MEDS: METOCLOPRAMIDE 10 MG/2 ML INJ IV SCH ×3 (02:56→14:39)
[2020-10-30] MEDS: PHENYTOIN 100 MG CAPSULE.ER PO SCH ×3 (05:00→21:19)
[2020-10-30 08:40] LABS: Basophils # (Auto) 0.1 K/mm3 (0.0-0.1); Basophils % (Auto) 0.6 % (0.0-1.8); Eosinophils # (Auto) 0.4 K/mm3 (0.0-0.4); Eosinophils % (Auto) 3.8 % (0.0-4.3); Hematocrit 26.9 % (30.3-42.9); Hemoglobin 9.2 gm/dl (10.1-14.3); Lymphocytes # (Auto) 1.2 K/mm3 (1.2-5.4); Lymphocytes % (Auto) 12.4 % (13.4-35.0); Mean Corpuscular HGB Conc 34 % (30-34); Mean Corpuscular Volume 83 fl (79-97); Monocytes # (Auto) 0.7 K/mm3 (0.0-0.8); Monocytes % (Auto) 7.2 % (0.0-7.3); Platelet Count 297 K/mm3 (140-440); Red Blood Count 3.23 M/mm3 (3.65-5.03); Red Cell Distribution Width 13.9 % (13.2-15.2)
[2020-10-30 09:07] LABS: Alanine Aminotransferase 43 units/L (7-56); Albumin 2.7 g/dL (3.9-5); BUN/Creatinine Ratio 10; Blood Urea Nitrogen 6 mg/dL (7-17); Calcium 8.5 mg/dL (8.4-10.2); Hemolysis Index 2
[2020-10-30] MEDS: levETIRAcetam 500 MG TAB PO SCH ×2 (10:35→21:20)
[2020-10-30] MEDS: LACOSAMIDE 100 MG TAB PO SCH ×2 (10:35→21:20)
[2020-10-30] MEDS: FAMOTIDINE 20 MG TAB PO SCH ×2 (10:35→21:19)
[2020-10-30] MEDS: HEPARIN 5,000 UNIT/1 ML VIAL SUB-Q SCH ×2 (10:35→21:20)
[2020-10-30] MEDS: DOCUSATE SODIUM 100 MG/10 ML ORAL LIQD PO SCH ×2 (10:36→21:20)
--- NOTE | 2020-10-30 13:41 | Progress Note ---
Assessment and Plan A/p 1) Acute respiratory failure Current Visit: Yes Status: Acute Qualifiers: Respiratory failure complication: hypoxia Qualified Code(s): J96.01 - Acute respiratory failure with hypoxia Plan to address problem: Extubated on 10/26 Stable No need for supplemental oxygen (2) Status epilepticus Current Visit: Yes Status: Acute Plan to address problem: Improved (3) Hypertensive emergency Current Visit: Yes Status: Acute Plan to address problem: Stable (4) Acute encephalopathy Current Visit: Yes Status: Acute Plan to address problem: Improved (5) Leukocytosis Current Visit: Yes Status: Acute Plan to address problem: Improved (6) DVT prophylaxis Current Visit: Yes Status: Acute Plan to address problem: SCD to bilateral lower extremities while in bed, prophylactic anticoagulation (7) Advance care planning Current Visit: Yes Status: Acute Plan to address problem: Disease education conducted, patient is full code, prognosis discussed, +30 minutes. ( Subjective Date of service: 10/30/20 Principal diagnosis: Ac hypoxemic & hypercapnic resp failure; Status epilepticus; HTNsive emerge Interval history: 65 YO Female with Obesity, HTN, presents to ED for evaluation. Patient is intubated and on ventilatory support at the time of my evaluation and is unable to provide history. Patient history is taken from EMS staff, ED staff. As per staff the patient was found down and unresponsive by her neighbor. Patient neighbor describe seizure-like activity. EMS was notified and upon arrival the patient was found to be in distress and actively seizing. Patient treated with 2 mg of Ativan which terminated the seizures. The patient was subsequently transported to [facility] for further evaluation and care of the aforementioned symptoms. Patient was seen and evaluated in the emergency department. All lab and imaging studies reviewed. Patient found to have symptoms consistent with status epilepticus which was evidenced by recurrent seizures in the emergency department with concomitant decrease in pulse oximetry to 84% on room air. The patient was also found to have hypertensive emergency with a blood pressure of 223/143. The patient was deemed unable to protect her airway and was intubated for airway protection. Patient also found to have acute encephalopathy. Patient admitted to ICU due to increased risk of decompensation. Critical care team consulted in ED. No prior admission for review. No medication listed at time of admission for reconciliation. Advanced care planning conducted in ED. 10/27/20 Pateint transferred to floor Stable No seizures 10/28/20 Patient says she has support system at home On further inquiry she is trying to depend on her neighbor Relatives in [place] Unable to walk upto restroom No ADLs performed May need SNF placement 10/29/20 Placement issues Needs SNF 10/30/20 Stable for Discharge Etienne patient Informed about need for SNF Objective - Constitutional Vitals: Vital Signs - 12hr 10/30/20 10/30/20 10/30/20 03:00 04:21 12:31 Temperature 99.3 F Pulse Rate 87 83 86 Respiratory 18 Rate Blood Pressure 147/67 O2 Sat by Pulse 93 Oximetry General appearance: Present: no acute distress, well-nourished - EENT Eyes: PERRL, EOM intact ENT: hearing intact, clear oral mucosa Ears: bilateral: normal - Neck Neck: supple, normal ROM - Respiratory Respiratory effort: normal Respiratory: bilateral: CTA - Breasts Breasts: normal - Cardiovascular Heart rate: 78 Rhythm: regular Heart Sounds: Present: S1 & S2. Absent: gallop, rub Extremities: pulses intact, No edema, normal color, Full ROM - Gastrointestinal General gastrointestinal: Present: soft, non-tender, non-distended, normal bowel sounds - Genitourinary Female genitourinary: normal - Integumentary Integumentary: clear, warm, dry - Musculoskeletal Musculoskeletal: 1, strength equal bilaterally - Neurologic Neurologic: moves all extremities - Psychiatric Psychiatric: memory intact, appropriate mood/affect, intact judgment & insight - Labs CBC & Chem 7: 10/30/20 07:53 10/30/20 07:53 Labs: Abnormal lab results 10/29/20 10/29/20 10/30/20 Range/Units 18:05 23:38 06:20 RBC (3.65-5.03) M/mm3 Hgb (10.1-14.3) gm/dl Hct (30.3-42.9) % Lymph % (Auto) (13.4-35.0) % Seg Neutrophils % (40.0-70.0) % Potassium (3.6-5.0) mmol/L BUN (7-17) mg/dL Glucose (65-100) mg/dL POC Glucose 152 H 111 H 116 H (70-105) mg/dL AST (5-40) units/L Total Protein (6.3-8.2) g/dL Albumin (3.9-5) g/dL 10/30/20 10/30/20 10/30/20 Range/Units 07:53 07:53 12:08 RBC 3.23 L (3.65-5.03) M/mm3 Hgb 9.2 L (10.1-14.3) gm/dl Hct 26.9 L (30.3-42.9) % Lymph % (Auto) 12.4 L (13.4-35.0) % Seg Neutrophils % 76.0 H (40.0-70.0) % Potassium 3.0 L (3.6-5.0) mmol/L BUN 6 L (7-17) mg/dL Glucose 107 H (65-100) mg/dL POC Glucose 115 H (70-105) mg/dL AST 43 H (5-40) units/L Total Protein 5.9 L (6.3-8.2) g/dL Albumin 2.7 L (3.9-5) g/dL HEART Score - HEART Score Troponin: Troponin T 0.015 ng/mL (0.00-0.029) 10/14/20 13:36
--- NOTE | 2020-10-30 18:26 | Progress Note ---
Assessment and Plan Acute hypoxemic and hypercapnic respiratory failure. Acute encephalopathy (Toxic / metabolic). Status epilepticus Ileus, [place] syndrome Hypertensive emergency at presentation History of a brain aneurysm repair. Obesity. History of hypertension. Leukocytosis-resolved Hypernatremia Hyperglycemia. Aspiration precautions CXR and ABG as clinically indicated Keep K at 4, Mag at 2 and Phos at 2.5 to optimize respiratory muscle function Continue all current care, mental status is improving PT/OT, increase activity Discharge planning - continue Vimpat & Keppra (Adjust per neurologist) - continue to wean supplemental oxygen for target O2 sats > 92% - accuchecks with glycemic control per SSI (While critically ill target blood glucose of 140-180 mg/dL; avoid hypoglycemia) - avoid nephrotoxins, renally dose all medications - continue to avoid benzodiazepines, reduce the possibility of delirium - prn analgesia per CPOT score - Maintenance of sleep-wake cycle, avoid delirium - VTE prophylaxis -PRODUCT DESIGN SPECIALIST evaluation and treatment on going - continue mobility protocol, off loading, frequent turning for pressure ulcer prevention - continue other care per attending / other consultants CONDITION: Fair PROGNOSIS: Fair CODE STATUS: FULL CODE Subjective Date of service: 10/30/20 Principal diagnosis: Ac hypoxemic & hypercapnic resp failure; Status epilepticus; HTNsive emerge Interval history: Patient is seen today for: Ac hypoxemic and hypercapnic resp failure; Ac. encephalopathy; Status epilepticus; HTNsive emergency; History of a brain aneurysm repair; Obesity Seen and examined at bedside; 24hour events reviewed; nursing and respiratory care staff consulted; no adverse overnight events reported to me; resting peacefully in bed;mental status much improved today. No fevers, no diarrhea, no vomiting Objective Vital Signs - 12hr 10/30/20 12:31 Pulse Rate 86 Constitutional: no acute distress, alert Eyes: non-icteric ENT: oropharynx moist Neck: supple, no lymphadenopathy, no JVD Effort: normal Ascultation: Bilateral: diminished breath sounds, rhonchi (scant) Percussion: Bilateral: not dull Cardiovascular: regular rate and rhythm, other (S1,S2) Gastrointestinal: normoactive bowel sounds, soft, non-tender, other Integumentary: normal Extremities: no cyanosis, no edema, pink and warm, pulses normal Neurologic: normal mental status, non-focal exam, pupils equal and round, other (drifs to sleep, easily roused, obeys simple commands) Psychiatric: mood appropriate, affect normal CBC and BMP: 10/30/20 07:53 10/30/20 07:53 ABG, PT/INR, D-dimer: ABG ABG pH 7.393 (7.320-7.450) 10/21/20 13:43 POC ABG pCO2 34.4 mmHg (32.0-48.0) 10/21/20 13:43 ABG pCO2 46.2 mm Hg 10/19/20 04:55 POC ABG pO2 79.6 mmHg (83-108) L 10/21/20 13:43 ABG pO2 84.7 mm Hg (80.0-90.0) 10/19/20 04:55 POC ABG HCO3 20.5 10/21/20 13:43 ABG O2 Saturation 96.7 % (95.0-99.0) 10/19/20 04:55 PT/INR, D-dimer PT 14.0 Sec. (12.2-14.9) 10/14/20 13:36 INR 1.07 (0.87-1.13) 10/14/20 13:36 Abnormal lab findings: Abnormal Labs 10/14/20 10/14/20 10/14/20 13:36 13:36 14:22 WBC 14.7 H RBC Hgb Hct MCHC 35 H Lymph % (Auto) [place] % (Auto) Lymph # (Auto) [place] # (Auto) Seg Neutrophils % Seg Neuts % (Manual) 89.0 H Lymphocytes % (Manual) 4.0 L Seg Neutrophils # Seg Neutrophils # Man 13.1 H Lymphocytes # (Manual) 0.6 L ABG pH 7.298 L POC ABG pCO2 POC ABG pO2 ABG pO2 285.8 H ABG HCO3 ABG O2 Saturation 99.5 H ABG Base Excess -4.1 L ABG Hemoglobin ABG Oxyhemoglobin ABG Sodium ABG Potassium ABG Glucose Oxyhemoglobin Sodium 131 L Potassium Chloride 97.2 L Carbon Dioxide BUN Creatinine Glucose 170 H POC Glucose Calcium AST Total Protein Albumin Arterial Blood Glucose Phenytoin 10/14/20 10/15/20 10/15/20 17:09 03:35 04:33 WBC RBC Hgb Hct MCHC 36 H Lymph % (Auto) 9.6 L [place] % (Auto) 10.1 H Lymph # (Auto) 1.0 L [place] # (Auto) 1.1 H Seg Neutrophils % 79.8 H Seg Neuts % (Manual) Lymphocytes % (Manual) Seg Neutrophils # 8.4 H Seg Neutrophils # Man Lymphocytes # (Manual) ABG pH 7.536 H POC ABG pCO2 POC ABG pO2 ABG pO2 185.0 H 110.2 H ABG HCO3 ABG O2 Saturation 99.2 H ABG Base Excess ABG Hemoglobin ABG Oxyhemoglobin ABG Sodium ABG Potassium ABG Glucose Oxyhemoglobin Sodium Potassium Chloride Carbon Dioxide BUN Creatinine Glucose POC Glucose Calcium AST Total Protein Albumin Arterial Blood Glucose Phenytoin 10/15/20 10/15/20 10/16/20 04:33 13:12 00:09 WBC RBC Hgb Hct MCHC Lymph % (Auto) [place] % (Auto) Lymph # (Auto) [place] # (Auto) Seg Neutrophils % Seg Neuts % (Manual) Lymphocytes % (Manual) Seg Neutrophils # Seg Neutrophils # Man Lymphocytes # (Manual) ABG pH 7.297 L POC ABG pCO2 51.0 H POC ABG pO2 56.7 L ABG pO2 ABG HCO3 ABG O2 Saturation ABG Base Excess ABG Hemoglobin ABG Oxyhemoglobin 84.6 L ABG Sodium 134.4 L ABG Potassium ABG Glucose 118 H Oxyhemoglobin Sodium Potassium Chloride Carbon Dioxide BUN Creatinine Glucose 120 H POC Glucose 114 H Calcium AST Total Protein Albumin Arterial Blood Glucose 118 H Phenytoin 10/16/20 10/16/20 10/17/20 05:42 05:46 04:08 WBC RBC Hgb Hct MCHC Lymph % (Auto) [place] % (Auto) Lymph # (Auto) [place] # (Auto) Seg Neutrophils % Seg Neuts % (Manual) Lymphocytes % (Manual) Seg Neutrophils # Seg Neutrophils # Man Lymphocytes # (Manual) ABG pH POC ABG pCO2 POC ABG pO2 ABG pO2 96.6 H ABG HCO3 ABG O2 Saturation ABG Base Excess ABG Hemoglobin ABG Oxyhemoglobin ABG Sodium 132.6 L ABG Potassium ABG Glucose 112 H Oxyhemoglobin Sodium Potassium Chloride Carbon Dioxide BUN Creatinine Glucose POC Glucose 106 H Calcium AST Total Protein Albumin Arterial Blood Glucose 112 H Phenytoin 10/17/20 10/17/20 10/17/20 09:23 09:23 10:46 WBC 12.3 H RBC Hgb Hct MCHC Lymph % (Auto) [place] % (Auto) Lymph # (Auto) [place] # (Auto) Seg Neutrophils % Seg Neuts % (Manual) Lymphocytes % (Manual) Seg Neutrophils # Seg Neutrophils # Man Lymphocytes # (Manual) ABG pH POC ABG pCO2 POC ABG pO2 71.6 L ABG pO2 ABG HCO3 ABG O2 Saturation ABG Base Excess ABG Hemoglobin ABG Oxyhemoglobin 92.6 L ABG Sodium 134.8 L ABG Potassium ABG Glucose 105 H Oxyhemoglobin Sodium Potassium Chloride Carbon Dioxide 21 L BUN 19 H Creatinine Glucose POC Glucose Calcium AST Total Protein Albumin Arterial Blood Glucose 105 H Phenytoin 10/17/20 10/18/20 10/18/20 23:43 04:18 08:32 WBC RBC Hgb Hct MCHC Lymph % (Auto) [place] % (Auto) Lymph # (Auto) [place] # (Auto) Seg Neutrophils % Seg Neuts % (Manual) Lymphocytes % (Manual) Seg Neutrophils # Seg Neutrophils # Man Lymphocytes # (Manual) ABG pH POC ABG pCO2 POC ABG pO2 81.9 L ABG pO2 ABG HCO3 ABG O2 Saturation ABG Base Excess ABG Hemoglobin ABG Oxyhemoglobin ABG Sodium 133.3 L ABG Potassium ABG Glucose 125 H Oxyhemoglobin Sodium Potassium Chloride Carbon Dioxide BUN Creatinine Glucose POC Glucose 118 H Calcium AST Total Protein Albumin Arterial Blood Glucose 125 H Phenytoin 7.1 L 10/18/20 10/18/20 10/18/20 08:32 08:32 12:34 WBC RBC Hgb Hct MCHC Lymph % (Auto) 12.4 L [place] % (Auto) Lymph # (Auto) [place] # (Auto) Seg Neutrophils % 77.0 H Seg Neuts % (Manual) Lymphocytes % (Manual) Seg Neutrophils # Seg Neutrophils # Man Lymphocytes # (Manual) ABG pH POC ABG pCO2 POC ABG pO2 ABG pO2 ABG HCO3 ABG O2 Saturation ABG Base Excess ABG Hemoglobin ABG Oxyhemoglobin ABG Sodium ABG Potassium ABG Glucose Oxyhemoglobin Sodium 135 L Potassium Chloride Carbon Dioxide BUN 21 H Creatinine Glucose 131 H POC Glucose 121 H Calcium AST Total Protein Albumin Arterial Blood Glucose Phenytoin 10/18/20 10/18/20 10/19/20 18:12 23:47 04:55 WBC RBC Hgb Hct MCHC Lymph % (Auto) [place] % (Auto) Lymph # (Auto) [place] # (Auto) Seg Neutrophils % Seg Neuts % (Manual) Lymphocytes % (Manual) Seg Neutrophils # Seg Neutrophils # Man Lymphocytes # (Manual) ABG pH POC ABG pCO2 POC ABG pO2 ABG pO2 ABG HCO3 27.1 H ABG O2 Saturation ABG Base Excess ABG Hemoglobin 11.1 L ABG Oxyhemoglobin ABG Sodium ABG Potassium ABG Glucose Oxyhemoglobin 94.9 L Sodium Potassium Chloride Carbon Dioxide BUN Creatinine Glucose POC Glucose 133 H 142 H Calcium AST Total Protein Albumin Arterial Blood Glucose Phenytoin 10/19/20 10/19/20 10/19/20 06:02 07:59 12:35 WBC RBC Hgb Hct MCHC Lymph % (Auto) [place] % (Auto) Lymph # (Auto) [place] # (Auto) Seg Neutrophils % Seg Neuts % (Manual) Lymphocytes % (Manual) Seg Neutrophils # Seg Neutrophils # Man Lymphocytes # (Manual) ABG pH POC ABG pCO2 POC ABG pO2 ABG pO2 ABG HCO3 ABG O2 Saturation ABG Base Excess ABG Hemoglobin ABG Oxyhemoglobin ABG Sodium ABG Potassium ABG Glucose Oxyhemoglobin Sodium Potassium Chloride Carbon Dioxide BUN Creatinine Glucose 144 H POC Glucose 143 H 132 H Calcium AST Total Protein Albumin Arterial Blood Glucose Phenytoin 10/19/20 10/19/20 10/19/20 16:12 16:31 23:17 WBC RBC Hgb Hct MCHC Lymph % (Auto) [place] % (Auto) Lymph # (Auto) [place] # (Auto) Seg Neutrophils % Seg Neuts % (Manual) Lymphocytes % (Manual) Seg Neutrophils # Seg Neutrophils # Man Lymphocytes # (Manual) ABG pH 7.461 H POC ABG pCO2 POC ABG pO2 75.8 L ABG pO2 ABG HCO3 ABG O2 Saturation ABG Base Excess ABG Hemoglobin ABG Oxyhemoglobin ABG Sodium 134.0 L ABG Potassium ABG Glucose 156 H Oxyhemoglobin Sodium Potassium Chloride Carbon Dioxide BUN Creatinine Glucose POC Glucose 120 H 128 H Calcium AST Total Protein Albumin Arterial Blood Glucose 156 H Phenytoin 10/20/20 10/20/20 10/20/20 03:25 05:26 12:12 WBC RBC Hgb Hct MCHC Lymph % (Auto) [place] % (Auto) Lymph # (Auto) [place] # (Auto) Seg Neutrophils % Seg Neuts % (Manual) Lymphocytes % (Manual) Seg Neutrophils # Seg Neutrophils # Man Lymphocytes # (Manual) ABG pH POC ABG pCO2 POC ABG pO2 ABG pO2 ABG HCO3 ABG O2 Saturation ABG Base Excess ABG Hemoglobin ABG Oxyhemoglobin ABG Sodium 134.0 L ABG Potassium ABG Glucose 129 H Oxyhemoglobin Sodium Potassium Chloride Carbon Dioxide BUN Creatinine Glucose POC Glucose 125 H 136 H Calcium AST Total Protein Albumin Arterial Blood Glucose 129 H Phenytoin 10/20/20 10/21/20 10/21/20 17:58 00:09 04:14 WBC RBC Hgb Hct MCHC Lymph % (Auto) [place] % (Auto) Lymph # (Auto) [place] # (Auto) Seg Neutrophils % Seg Neuts % (Manual) Lymphocytes % (Manual) Seg Neutrophils # Seg Neutrophils # Man Lymphocytes # (Manual) ABG pH POC ABG pCO2 POC ABG pO2 ABG pO2 ABG HCO3 ABG O2 Saturation ABG Base Excess ABG Hemoglobin ABG Oxyhemoglobin ABG Sodium 134.6 L ABG Potassium 4.8 H ABG Glucose 145 H Oxyhemoglobin Sodium Potassium Chloride Carbon Dioxide BUN Creatinine Glucose POC Glucose 148 H 144 H Calcium AST Total Protein Albumin Arterial Blood Glucose 145 H Phenytoin 10/21/20 10/21/20 10/21/20 04:48 05:17 12:43 WBC RBC Hgb Hct MCHC Lymph % (Auto) [place] % (Auto) Lymph # (Auto) [place] # (Auto) Seg Neutrophils % Seg Neuts % (Manual) Lymphocytes % (Manual) Seg Neutrophils # Seg Neutrophils # Man Lymphocytes # (Manual) ABG pH POC ABG pCO2 POC ABG pO2 ABG pO2 ABG HCO3 ABG O2 Saturation ABG Base Excess ABG Hemoglobin ABG Oxyhemoglobin ABG Sodium ABG Potassium ABG Glucose Oxyhemoglobin Sodium Potassium 5.1 H Chloride Carbon Dioxide BUN 36 H Creatinine 1.3 H D Glucose 137 H POC Glucose 132 H 133 H Calcium AST Total Protein Albumin Arterial Blood Glucose Phenytoin 10/21/20 10/21/20 10/21/20 13:43 18:45 18:45 WBC 13.2 H RBC Hgb Hct MCHC Lymph % (Auto) 7.9 L [place] % (Auto) 11.1 H Lymph # (Auto) 1.1 L [place] # (Auto) 1.5 H Seg Neutrophils % 79.8 H Seg Neuts % (Manual) Lymphocytes % (Manual) Seg Neutrophils # 10.6 H Seg Neutrophils # Man Lymphocytes # (Manual) ABG pH POC ABG pCO2 POC ABG pO2 79.6 L ABG pO2 ABG HCO3 ABG O2 Saturation ABG Base Excess ABG Hemoglobin ABG Oxyhemoglobin ABG Sodium 135.8 L ABG Potassium 4.9 H ABG Glucose 155 H Oxyhemoglobin Sodium Potassium Chloride Carbon Dioxide BUN Creatinine Glucose POC Glucose Calcium AST Total Protein Albumin Arterial Blood Glucose 155 H Phenytoin 6.7 L 10/22/20 10/22/20 10/22/20 04:48 05:31 12:30 WBC RBC Hgb Hct MCHC Lymph % (Auto) [place] % (Auto) Lymph # (Auto) [place] # (Auto) Seg Neutrophils % Seg Neuts % (Manual) Lymphocytes % (Manual) Seg Neutrophils # Seg Neutrophils # Man Lymphocytes # (Manual) ABG pH POC ABG pCO2 POC ABG pO2 ABG pO2 ABG HCO3 ABG O2 Saturation ABG Base Excess ABG Hemoglobin ABG Oxyhemoglobin ABG Sodium ABG Potassium ABG Glucose Oxyhemoglobin Sodium Potassium Chloride Carbon Dioxide BUN Creatinine Glucose POC Glucose 124 H 124 H Calcium AST Total Protein Albumin Arterial Blood Glucose Phenytoin 6.6 L 10/22/20 10/23/20 10/23/20 18:04 00:09 00:16 WBC RBC Hgb Hct MCHC Lymph % (Auto) [place] % (Auto) Lymph # (Auto) [place] # (Auto) Seg Neutrophils % Seg Neuts % (Manual) Lymphocytes % (Manual) Seg Neutrophils # Seg Neutrophils # Man Lymphocytes # (Manual) ABG pH POC ABG pCO2 POC ABG pO2 ABG pO2 ABG HCO3 ABG O2 Saturation ABG Base Excess ABG Hemoglobin ABG Oxyhemoglobin ABG Sodium ABG Potassium ABG Glucose Oxyhemoglobin Sodium Potassium Chloride 109.6 H Carbon Dioxide 16 L BUN 68 H Creatinine 2.3 H D Glucose 148 H POC Glucose 130 H 149 H Calcium 8.3 L AST Total Protein Albumin Arterial Blood Glucose Phenytoin 10/23/20 10/23/20 10/23/20 05:33 08:07 11:43 WBC RBC 3.41 L Hgb 9.7 L Hct 29.8 L MCHC Lymph % (Auto) 9.9 L [place] % (Auto) 15.0 H Lymph # (Auto) 0.8 L [place] # (Auto) 1.2 H Seg Neutrophils % 72.5 H Seg Neuts % (Manual) Lymphocytes % (Manual) Seg Neutrophils # Seg Neutrophils # Man Lymphocytes # (Manual) ABG pH POC ABG pCO2 POC ABG pO2 ABG pO2 ABG HCO3 ABG O2 Saturation ABG Base Excess ABG Hemoglobin ABG Oxyhemoglobin ABG Sodium ABG Potassium ABG Glucose Oxyhemoglobin Sodium Potassium Chloride Carbon Dioxide BUN Creatinine Glucose POC Glucose 135 H 140 H Calcium AST Total Protein Albumin Arterial Blood Glucose Phenytoin 10/23/20 10/24/20 10/24/20 17:50 00:08 05:22 WBC RBC Hgb Hct MCHC Lymph % (Auto) [place] % (Auto) Lymph # (Auto) [place] # (Auto) Seg Neutrophils % Seg Neuts % (Manual) Lymphocytes % (Manual) Seg Neutrophils # Seg Neutrophils # Man Lymphocytes # (Manual) ABG pH POC ABG pCO2 POC ABG pO2 ABG pO2 ABG HCO3 ABG O2 Saturation ABG Base Excess ABG Hemoglobin ABG Oxyhemoglobin ABG Sodium ABG Potassium ABG Glucose Oxyhemoglobin Sodium Potassium Chloride Carbon Dioxide BUN Creatinine Glucose POC Glucose 121 H 131 H 132 H Calcium AST Total Protein Albumin Arterial Blood Glucose Phenytoin 10/24/20 10/24/20 10/24/20 10:10 10:10 11:23 WBC RBC 3.61 L Hgb Hct MCHC Lymph % (Auto) 8.9 L [place] % (Auto) 10.4 H Lymph # (Auto) 0.9 L [place] # (Auto) 1.0 H Seg Neutrophils % 78.3 H Seg Neuts % (Manual) Lymphocytes % (Manual) Seg Neutrophils # 7.8 H Seg Neutrophils # Man Lymphocytes # (Manual) ABG pH POC ABG pCO2 POC ABG pO2 ABG pO2 ABG HCO3 ABG O2 Saturation ABG Base Excess ABG Hemoglobin ABG Oxyhemoglobin ABG Sodium ABG Potassium ABG Glucose Oxyhemoglobin Sodium 146 H Potassium Chloride 115.8 H Carbon Dioxide BUN 40 H Creatinine Glucose 139 H POC Glucose 121 H Calcium AST Total Protein 6.2 L Albumin 2.9 L Arterial Blood Glucose Phenytoin 10/24/20 10/29/20 10/29/20 23:45 01:09 06:01 WBC RBC Hgb Hct MCHC Lymph % (Auto) [place] % (Auto) Lymph # (Auto) [place] # (Auto) Seg Neutrophils % Seg Neuts % (Manual) Lymphocytes % (Manual) Seg Neutrophils # Seg Neutrophils # Man Lymphocytes # (Manual) ABG pH POC ABG pCO2 POC ABG pO2 ABG pO2 ABG HCO3 ABG O2 Saturation ABG Base Excess ABG Hemoglobin ABG Oxyhemoglobin ABG Sodium ABG Potassium ABG Glucose Oxyhemoglobin Sodium Potassium Chloride Carbon Dioxide BUN Creatinine Glucose POC Glucose 112 H 128 H 120 H Calcium AST Total Protein Albumin Arterial Blood Glucose Phenytoin 10/29/20 10/29/20 10/29/20 11:22 18:05 23:38 WBC RBC Hgb Hct MCHC Lymph % (Auto) [place] % (Auto) Lymph # (Auto) [place] # (Auto) Seg Neutrophils % Seg Neuts % (Manual) Lymphocytes % (Manual) Seg Neutrophils # Seg Neutrophils # Man Lymphocytes # (Manual) ABG pH POC ABG pCO2 POC ABG pO2 ABG pO2 ABG HCO3 ABG O2 Saturation ABG Base Excess ABG Hemoglobin ABG Oxyhemoglobin ABG Sodium ABG Potassium ABG Glucose Oxyhemoglobin Sodium Potassium Chloride Carbon Dioxide BUN Creatinine Glucose POC Glucose 143 H 152 H 111 H Calcium AST Total Protein Albumin Arterial Blood Glucose Phenytoin 10/30/20 10/30/20 10/30/20 06:20 07:53 07:53 WBC RBC 3.23 L Hgb 9.2 L Hct 26.9 L MCHC Lymph % (Auto) 12.4 L [place] % (Auto) Lymph # (Auto) [place] # (Auto) Seg Neutrophils % 76.0 H Seg Neuts % (Manual) Lymphocytes % (Manual) Seg Neutrophils # Seg Neutrophils # Man Lymphocytes # (Manual) ABG pH POC ABG pCO2 POC ABG pO2 ABG pO2 ABG HCO3 ABG O2 Saturation ABG Base Excess ABG Hemoglobin ABG Oxyhemoglobin ABG Sodium ABG Potassium ABG Glucose Oxyhemoglobin Sodium Potassium 3.0 L Chloride Carbon Dioxide BUN 6 L Creatinine Glucose 107 H POC Glucose 116 H Calcium AST 43 H Total Protein 5.9 L Albumin 2.7 L Arterial Blood Glucose Phenytoin 10/30/20 10/30/20 12:08 16:05 WBC RBC Hgb Hct MCHC Lymph % (Auto) [place] % (Auto) Lymph # (Auto) [place] # (Auto) Seg Neutrophils % Seg Neuts % (Manual) Lymphocytes % (Manual) Seg Neutrophils # Seg Neutrophils # Man Lymphocytes # (Manual) ABG pH POC ABG pCO2 POC ABG pO2 ABG pO2 ABG HCO3 ABG O2 Saturation ABG Base Excess ABG Hemoglobin ABG Oxyhemoglobin ABG Sodium ABG Potassium ABG Glucose Oxyhemoglobin Sodium Potassium Chloride Carbon Dioxide BUN Creatinine Glucose POC Glucose 115 H 107 H Calcium AST Total Protein Albumin Arterial Blood Glucose Phenytoin Allied health notes reviewed: nursing
[2020-10-30] MEDS: QUEtiapine 100 MG TAB PO SCH (21:20)
[2020-10-31] MEDS: METOCLOPRAMIDE 10 MG/2 ML INJ IV SCH ×3 (06:26→15:57)
[2020-10-31] MEDS: POLYETHYLENE GLYCOL 3350 17 GM POWDER PO SCH ×2 (06:27→21:53)
[2020-10-31] MEDS: PHENYTOIN 100 MG CAPSULE.ER PO SCH ×3 (06:42→21:53)
[2020-10-31] MEDS: FAMOTIDINE 20 MG TAB PO SCH ×2 (10:53→21:52)
[2020-10-31] MEDS: levETIRAcetam 500 MG TAB PO SCH ×2 (10:53→21:52)
[2020-10-31] MEDS: LACOSAMIDE 100 MG TAB PO SCH ×2 (10:54→21:53)
[2020-10-31] MEDS: HEPARIN 5,000 UNIT/1 ML VIAL SUB-Q SCH ×2 (10:54→21:53)
[2020-10-31] MEDS: DOCUSATE SODIUM 100 MG/10 ML ORAL LIQD PO SCH ×2 (10:54→21:53)
--- NOTE | 2020-10-31 13:37 | Progress Note ---
Assessment and Plan Patient alert, awake. Patient Obese, resting on room air. O2 saturation 95%. No complaint of chest pain, shortness of breath or cough at this time. No history of smoking, alcohol or drug abuse. Worked for the [employer] before retired. Not m arried. Has no children. Patient afebrile.. No leukocytosis. Chest xray done 10/20/20 reported Improved left basilar subsegmental atelectasis. Patient admitted for seizures, intubated and extubated. Patient is on albuterol inhaler, S/C heparin and famotidine. Patient is on Keppra for seizures. - Patient Problems (1) Acute respiratory failure Current Visit: Yes Status: Acute Qualifiers: Respiratory failure complication: hypoxia Qualified Code(s): J96.01 - Acute respiratory failure with hypoxia Plan to address problem: Patient intubated and extubated for seizures. Patient presently on 2 litres O2 and O2 saturation running 100% Patient is on albuterol inhaler prn for shortness of breath. No complaint of shortness of breath at this time. (2) Hypertensive emergency Current Visit: Yes Status: Acute Plan to address problem: Management as per primary care. (3) Acute encephalopathy Current Visit: Yes Status: Acute Plan to address problem: Appears improved. Management as per primary care. (4) Seizure Current Visit: Yes Status: Acute Plan to address problem: Patient is on Keppra. Also given dilantin. Management as per primary care and neurology. Subjective Date of service: 10/31/20 Principal diagnosis: Ac hypoxemic & hypercapnic resp failure; Status epilepticus; HTNsive emerge Interval history: Patient alert, awake. Patient Obese, resting on room air. O2 saturation 95%. No complaint of chest pain, shortness of breath or cough at this time. No history of smoking, alcohol or drug abuse. Worked for the [employer] before retired. Not . Has no children. Patient afebrile.. No leukocytosis. Chest xray done 10/20/20 reported Improved left basilar subsegmental atelectasis. Patient admitted for seizures, intubated and extubated. Patient is on albuterol inhaler, S/C heparin and famotidine. Patient is on Keppra for seizures. Objective Vital Signs - 12hr 10/31/20 10/31/20 03:00 04:01 Temperature 98.8 F Pulse Rate 73 70 Respiratory 19 Rate Blood Pressure 128/61 O2 Sat by Pulse 94 Oximetry Constitutional: no acute distress, alert Eyes: non-icteric ENT: oropharynx moist, other (ETT 24 cm [place]IV[place]AD) Neck: supple, no lymphadenopathy, no JVD Effort: normal Ascultation: Bilateral: diminished breath sounds Percussion: Bilateral: not dull Cardiovascular: regular rate and rhythm Gastrointestinal: normoactive bowel sounds, soft, non-tender, other (Distended, firm) Integumentary: normal Extremities: no cyanosis, no edema, pink and warm, pulses normal Neurologic: non-focal exam (grossly), pupils equal and round, other (drifs to sleep, easily roused, obeys simple commands) Psychiatric: mood appropriate, affect normal, other (sedated) CBC and BMP: 10/30/20 07:53 10/30/20 07:53 ABG, PT/INR, D-dimer: ABG ABG pH 7.393 (7.320-7.450) 10/21/20 13:43 POC ABG pCO2 34.4 mmHg (32.0-48.0) 10/21/20 13:43 ABG pCO2 46.2 mm Hg 10/19/20 04:55 POC ABG pO2 79.6 mmHg (83-108) L 10/21/20 13:43 ABG pO2 84.7 mm Hg (80.0-90.0) 10/19/20 04:55 POC ABG HCO3 20.5 10/21/20 13:43 ABG O2 Saturation 96.7 % (95.0-99.0) 10/19/20 04:55 PT/INR, D-dimer PT 14.0 Sec. (12.2-14.9) 10/14/20 13:36 INR 1.07 (0.87-1.13) 10/14/20 13:36 Abnormal lab findings: Abnormal Labs 10/14/20 10/14/20 10/14/20 13:36 13:36 14:22 WBC 14.7 H RBC Hgb Hct MCHC 35 H Lymph % (Auto) [place] % (Auto) Lymph # (Auto) [place] # (Auto) Seg Neutrophils % Seg Neuts % (Manual) 89.0 H Lymphocytes % (Manual) 4.0 L Seg Neutrophils # Seg Neutrophils # Man 13.1 H Lymphocytes # (Manual) 0.6 L ABG pH 7.298 L POC ABG pCO2 POC ABG pO2 ABG pO2 285.8 H ABG HCO3 ABG O2 Saturation 99.5 H ABG Base Excess -4.1 L ABG Hemoglobin ABG Oxyhemoglobin ABG Sodium ABG Potassium ABG Glucose Oxyhemoglobin Sodium 131 L Potassium Chloride 97.2 L Carbon Dioxide BUN Creatinine Glucose 170 H POC Glucose Calcium AST Total Protein Albumin Arterial Blood Glucose Phenytoin 10/14/20 10/15/20 10/15/20 17:09 03:35 04:33 WBC RBC Hgb Hct MCHC 36 H Lymph % (Auto) 9.6 L [place] % (Auto) 10.1 H Lymph # (Auto) 1.0 L [place] # (Auto) 1.1 H Seg Neutrophils % 79.8 H Seg Neuts % (Manual) Lymphocytes % (Manual) Seg Neutrophils # 8.4 H Seg Neutrophils # Man Lymphocytes # (Manual) ABG pH 7.536 H POC ABG pCO2 POC ABG pO2 ABG pO2 185.0 H 110.2 H ABG HCO3 ABG O2 Saturation 99.2 H ABG Base Excess ABG Hemoglobin ABG Oxyhemoglobin ABG Sodium ABG Potassium ABG Glucose Oxyhemoglobin Sodium Potassium Chloride Carbon Dioxide BUN Creatinine Glucose POC Glucose Calcium AST Total Protein Albumin Arterial Blood Glucose Phenytoin 10/15/20 10/15/20 10/16/20 04:33 13:12 00:09 WBC RBC Hgb Hct MCHC Lymph % (Auto) [place] % (Auto) Lymph # (Auto) [place] # (Auto) Seg Neutrophils % Seg Neuts % (Manual) Lymphocytes % (Manual) Seg Neutrophils # Seg Neutrophils # Man Lymphocytes # (Manual) ABG pH 7.297 L POC ABG pCO2 51.0 H POC ABG pO2 56.7 L ABG pO2 ABG HCO3 ABG O2 Saturation ABG Base Excess ABG Hemoglobin ABG Oxyhemoglobin 84.6 L ABG Sodium 134.4 L ABG Potassium ABG Glucose 118 H Oxyhemoglobin Sodium Potassium Chloride Carbon Dioxide BUN Creatinine Glucose 120 H POC Glucose 114 H Calcium AST Total Protein Albumin Arterial Blood Glucose 118 H Phenytoin 10/16/20 10/16/20 10/17/20 05:42 05:46 04:08 WBC RBC Hgb Hct MCHC Lymph % (Auto) [place] % (Auto) Lymph # (Auto) [place] # (Auto) Seg Neutrophils % Seg Neuts % (Manual) Lymphocytes % (Manual) Seg Neutrophils # Seg Neutrophils # Man Lymphocytes # (Manual) ABG pH POC ABG pCO2 POC ABG pO2 ABG pO2 96.6 H ABG HCO3 ABG O2 Saturation ABG Base Excess ABG Hemoglobin ABG Oxyhemoglobin ABG Sodium 132.6 L ABG Potassium ABG Glucose 112 H Oxyhemoglobin Sodium Potassium Chloride Carbon Dioxide BUN Creatinine Glucose POC Glucose 106 H Calcium AST Total Protein Albumin Arterial Blood Glucose 112 H Phenytoin 10/17/20 10/17/20 10/17/20 09:23 09:23 10:46 WBC 12.3 H RBC Hgb Hct MCHC Lymph % (Auto) [place] % (Auto) Lymph # (Auto) [place] # (Auto) Seg Neutrophils % Seg Neuts % (Manual) Lymphocytes % (Manual) Seg Neutrophils # Seg Neutrophils # Man Lymphocytes # (Manual) ABG pH POC ABG pCO2 POC ABG pO2 71.6 L ABG pO2 ABG HCO3 ABG O2 Saturation ABG Base Excess ABG Hemoglobin ABG Oxyhemoglobin 92.6 L ABG Sodium 134.8 L ABG Potassium ABG Glucose 105 H Oxyhemoglobin Sodium Potassium Chloride Carbon Dioxide 21 L BUN 19 H Creatinine Glucose POC Glucose Calcium AST Total Protein Albumin Arterial Blood Glucose 105 H Phenytoin 10/17/20 10/18/20 10/18/20 23:43 04:18 08:32 WBC RBC Hgb Hct MCHC Lymph % (Auto) [place] % (Auto) Lymph # (Auto) [place] # (Auto) Seg Neutrophils % Seg Neuts % (Manual) Lymphocytes % (Manual) Seg Neutrophils # Seg Neutrophils # Man Lymphocytes # (Manual) ABG pH POC ABG pCO2 POC ABG pO2 81.9 L ABG pO2 ABG HCO3 ABG O2 Saturation ABG Base Excess ABG Hemoglobin ABG Oxyhemoglobin ABG Sodium 133.3 L ABG Potassium ABG Glucose 125 H Oxyhemoglobin Sodium Potassium Chloride Carbon Dioxide BUN Creatinine Glucose POC Glucose 118 H Calcium AST Total Protein Albumin Arterial Blood Glucose 125 H Phenytoin 7.1 L 10/18/20 10/18/20 10/18/20 08:32 08:32 12:34 WBC RBC Hgb Hct MCHC Lymph % (Auto) 12.4 L [place] % (Auto) Lymph # (Auto) [place] # (Auto) Seg Neutrophils % 77.0 H Seg Neuts % (Manual) Lymphocytes % (Manual) Seg Neutrophils # Seg Neutrophils # Man Lymphocytes # (Manual) ABG pH POC ABG pCO2 POC ABG pO2 ABG pO2 ABG HCO3 ABG O2 Saturation ABG Base Excess ABG Hemoglobin ABG Oxyhemoglobin ABG Sodium ABG Potassium ABG Glucose Oxyhemoglobin Sodium 135 L Potassium Chloride Carbon Dioxide BUN 21 H Creatinine Glucose 131 H POC Glucose 121 H Calcium AST Total Protein Albumin Arterial Blood Glucose Phenytoin 10/18/20 10/18/20 10/19/20 18:12 23:47 04:55 WBC RBC Hgb Hct MCHC Lymph % (Auto) [place] % (Auto) Lymph # (Auto) [place] # (Auto) Seg Neutrophils % Seg Neuts % (Manual) Lymphocytes % (Manual) Seg Neutrophils # Seg Neutrophils # Man Lymphocytes # (Manual) ABG pH POC ABG pCO2 POC ABG pO2 ABG pO2 ABG HCO3 27.1 H ABG O2 Saturation ABG Base Excess ABG Hemoglobin 11.1 L ABG Oxyhemoglobin ABG Sodium ABG Potassium ABG Glucose Oxyhemoglobin 94.9 L Sodium Potassium Chloride Carbon Dioxide BUN Creatinine Glucose POC Glucose 133 H 142 H Calcium AST Total Protein Albumin Arterial Blood Glucose Phenytoin 10/19/20 10/19/20 10/19/20 06:02 07:59 12:35 WBC RBC Hgb Hct MCHC Lymph % (Auto) [place] % (Auto) Lymph # (Auto) [place] # (Auto) Seg Neutrophils % Seg Neuts % (Manual) Lymphocytes % (Manual) Seg Neutrophils # Seg Neutrophils # Man Lymphocytes # (Manual) ABG pH POC ABG pCO2 POC ABG pO2 ABG pO2 ABG HCO3 ABG O2 Saturation ABG Base Excess ABG Hemoglobin ABG Oxyhemoglobin ABG Sodium ABG Potassium ABG Glucose Oxyhemoglobin Sodium Potassium Chloride Carbon Dioxide BUN Creatinine Glucose 144 H POC Glucose 143 H 132 H Calcium AST Total Protein Albumin Arterial Blood Glucose Phenytoin 10/19/20 10/19/20 10/19/20 16:12 16:31 23:17 WBC RBC Hgb Hct MCHC Lymph % (Auto) [place] % (Auto) Lymph # (Auto) [place] # (Auto) Seg Neutrophils % Seg Neuts % (Manual) Lymphocytes % (Manual) Seg Neutrophils # Seg Neutrophils # Man Lymphocytes # (Manual) ABG pH 7.461 H POC ABG pCO2 POC ABG pO2 75.8 L ABG pO2 ABG HCO3 ABG O2 Saturation ABG Base Excess ABG Hemoglobin ABG Oxyhemoglobin ABG Sodium 134.0 L ABG Potassium ABG Glucose 156 H Oxyhemoglobin Sodium Potassium Chloride Carbon Dioxide BUN Creatinine Glucose POC Glucose 120 H 128 H Calcium AST Total Protein Albumin Arterial Blood Glucose 156 H Phenytoin 10/20/20 10/20/20 10/20/20 03:25 05:26 12:12 WBC RBC Hgb Hct MCHC Lymph % (Auto) [place] % (Auto) Lymph # (Auto) [place] # (Auto) Seg Neutrophils % Seg Neuts % (Manual) Lymphocytes % (Manual) Seg Neutrophils # Seg Neutrophils # Man Lymphocytes # (Manual) ABG pH POC ABG pCO2 POC ABG pO2 ABG pO2 ABG HCO3 ABG O2 Saturation ABG Base Excess ABG Hemoglobin ABG Oxyhemoglobin ABG Sodium 134.0 L ABG Potassium ABG Glucose 129 H Oxyhemoglobin Sodium Potassium Chloride Carbon Dioxide BUN Creatinine Glucose POC Glucose 125 H 136 H Calcium AST Total Protein Albumin Arterial Blood Glucose 129 H Phenytoin 10/20/20 10/21/20 10/21/20 17:58 00:09 04:14 WBC RBC Hgb Hct MCHC Lymph % (Auto) [place] % (Auto) Lymph # (Auto) [place] # (Auto) Seg Neutrophils % Seg Neuts % (Manual) Lymphocytes % (Manual) Seg Neutrophils # Seg Neutrophils # Man Lymphocytes # (Manual) ABG pH POC ABG pCO2 POC ABG pO2 ABG pO2 ABG HCO3 ABG O2 Saturation ABG Base Excess ABG Hemoglobin ABG Oxyhemoglobin ABG Sodium 134.6 L ABG Potassium 4.8 H ABG Glucose 145 H Oxyhemoglobin Sodium Potassium Chloride Carbon Dioxide BUN Creatinine Glucose POC Glucose 148 H 144 H Calcium AST Total Protein Albumin Arterial Blood Glucose 145 H Phenytoin 10/21/20 10/21/20 10/21/20 04:48 05:17 12:43 WBC RBC Hgb Hct MCHC Lymph % (Auto) [place] % (Auto) Lymph # (Auto) [place] # (Auto) Seg Neutrophils % Seg Neuts % (Manual) Lymphocytes % (Manual) Seg Neutrophils # Seg Neutrophils # Man Lymphocytes # (Manual) ABG pH POC ABG pCO2 POC ABG pO2 ABG pO2 ABG HCO3 ABG O2 Saturation ABG Base Excess ABG Hemoglobin ABG Oxyhemoglobin ABG Sodium ABG Potassium ABG Glucose Oxyhemoglobin Sodium Potassium 5.1 H Chloride Carbon Dioxide BUN 36 H Creatinine 1.3 H D Glucose 137 H POC Glucose 132 H 133 H Calcium AST Total Protein Albumin Arterial Blood Glucose Phenytoin 10/21/20 10/21/20 10/21/20 13:43 18:45 18:45 WBC 13.2 H RBC Hgb Hct MCHC Lymph % (Auto) 7.9 L [place] % (Auto) 11.1 H Lymph # (Auto) 1.1 L [place] # (Auto) 1.5 H Seg Neutrophils % 79.8 H Seg Neuts % (Manual) Lymphocytes % (Manual) Seg Neutrophils # 10.6 H Seg Neutrophils # Man Lymphocytes # (Manual) ABG pH POC ABG pCO2 POC ABG pO2 79.6 L ABG pO2 ABG HCO3 ABG O2 Saturation ABG Base Excess ABG Hemoglobin ABG Oxyhemoglobin ABG Sodium 135.8 L ABG Potassium 4.9 H ABG Glucose 155 H Oxyhemoglobin Sodium Potassium Chloride Carbon Dioxide BUN Creatinine Glucose POC Glucose Calcium AST Total Protein Albumin Arterial Blood Glucose 155 H Phenytoin 6.7 L 10/22/20 10/22/20 10/22/20 04:48 05:31 12:30 WBC RBC Hgb Hct MCHC Lymph % (Auto) [place] % (Auto) Lymph # (Auto) [place] # (Auto) Seg Neutrophils % Seg Neuts % (Manual) Lymphocytes % (Manual) Seg Neutrophils # Seg Neutrophils # Man Lymphocytes # (Manual) ABG pH POC ABG pCO2 POC ABG pO2 ABG pO2 ABG HCO3 ABG O2 Saturation ABG Base Excess ABG Hemoglobin ABG Oxyhemoglobin ABG Sodium ABG Potassium ABG Glucose Oxyhemoglobin Sodium Potassium Chloride Carbon Dioxide BUN Creatinine Glucose POC Glucose 124 H 124 H Calcium AST Total Protein Albumin Arterial Blood Glucose Phenytoin 6.6 L 10/22/20 10/23/20 10/23/20 18:04 00:09 00:16 WBC RBC Hgb Hct MCHC Lymph % (Auto) [place] % (Auto) Lymph # (Auto) [place] # (Auto) Seg Neutrophils % Seg Neuts % (Manual) Lymphocytes % (Manual) Seg Neutrophils # Seg Neutrophils # Man Lymphocytes # (Manual) ABG pH POC ABG pCO2 POC ABG pO2 ABG pO2 ABG HCO3 ABG O2 Saturation ABG Base Excess ABG Hemoglobin ABG Oxyhemoglobin ABG Sodium ABG Potassium ABG Glucose Oxyhemoglobin Sodium Potassium Chloride 109.6 H Carbon Dioxide 16 L BUN 68 H Creatinine 2.3 H D Glucose 148 H POC Glucose 130 H 149 H Calcium 8.3 L AST Total Protein Albumin Arterial Blood Glucose Phenytoin 10/23/20 10/23/20 10/23/20 05:33 08:07 11:43 WBC RBC 3.41 L Hgb 9.7 L Hct 29.8 L MCHC Lymph % (Auto) 9.9 L [place] % (Auto) 15.0 H Lymph # (Auto) 0.8 L [place] # (Auto) 1.2 H Seg Neutrophils % 72.5 H Seg Neuts % (Manual) Lymphocytes % (Manual) Seg Neutrophils # Seg Neutrophils # Man Lymphocytes # (Manual) ABG pH POC ABG pCO2 POC ABG pO2 ABG pO2 ABG HCO3 ABG O2 Saturation ABG Base Excess ABG Hemoglobin ABG Oxyhemoglobin ABG Sodium ABG Potassium ABG Glucose Oxyhemoglobin Sodium Potassium Chloride Carbon Dioxide BUN Creatinine Glucose POC Glucose 135 H 140 H Calcium AST Total Protein Albumin Arterial Blood Glucose Phenytoin 10/23/20 10/24/20 10/24/20 17:50 00:08 05:22 WBC RBC Hgb Hct MCHC Lymph % (Auto) [place] % (Auto) Lymph # (Auto) [place] # (Auto) Seg Neutrophils % Seg Neuts % (Manual) Lymphocytes % (Manual) Seg Neutrophils # Seg Neutrophils # Man Lymphocytes # (Manual) ABG pH POC ABG pCO2 POC ABG pO2 ABG pO2 ABG HCO3 ABG O2 Saturation ABG Base Excess ABG Hemoglobin ABG Oxyhemoglobin ABG Sodium ABG Potassium ABG Glucose Oxyhemoglobin Sodium Potassium Chloride Carbon Dioxide BUN Creatinine Glucose POC Glucose 121 H 131 H 132 H Calcium AST Total Protein Albumin Arterial Blood Glucose Phenytoin 10/24/20 10/24/20 10/24/20 10:10 10:10 11:23 WBC RBC 3.61 L Hgb Hct MCHC Lymph % (Auto) 8.9 L [place] % (Auto) 10.4 H Lymph # (Auto) 0.9 L [place] # (Auto) 1.0 H Seg Neutrophils % 78.3 H Seg Neuts % (Manual) Lymphocytes % (Manual) Seg Neutrophils # 7.8 H Seg Neutrophils # Man Lymphocytes # (Manual) ABG pH POC ABG pCO2 POC ABG pO2 ABG pO2 ABG HCO3 ABG O2 Saturation ABG Base Excess ABG Hemoglobin ABG Oxyhemoglobin ABG Sodium ABG Potassium ABG Glucose Oxyhemoglobin Sodium 146 H Potassium Chloride 115.8 H Carbon Dioxide BUN 40 H Creatinine Glucose 139 H POC Glucose 121 H Calcium AST Total Protein 6.2 L Albumin 2.9 L Arterial Blood Glucose Phenytoin 10/24/20 10/29/20 10/29/20 23:45 01:09 06:01 WBC RBC Hgb Hct MCHC Lymph % (Auto) [place] % (Auto) Lymph # (Auto) [place] # (Auto) Seg Neutrophils % Seg Neuts % (Manual) Lymphocytes % (Manual) Seg Neutrophils # Seg Neutrophils # Man Lymphocytes # (Manual) ABG pH POC ABG pCO2 POC ABG pO2 ABG pO2 ABG HCO3 ABG O2 Saturation ABG Base Excess ABG Hemoglobin ABG Oxyhemoglobin ABG Sodium ABG Potassium ABG Glucose Oxyhemoglobin Sodium Potassium Chloride Carbon Dioxide BUN Creatinine Glucose POC Glucose 112 H 128 H 120 H Calcium AST Total Protein Albumin Arterial Blood Glucose Phenytoin 10/29/20 10/29/20 10/29/20 11:22 18:05 23:38 WBC RBC Hgb Hct MCHC Lymph % (Auto) [place] % (Auto) Lymph # (Auto) [place] # (Auto) Seg Neutrophils % Seg Neuts % (Manual) Lymphocytes % (Manual) Seg Neutrophils # Seg Neutrophils # Man Lymphocytes # (Manual) ABG pH POC ABG pCO2 POC ABG pO2 ABG pO2 ABG HCO3 ABG O2 Saturation ABG Base Excess ABG Hemoglobin ABG Oxyhemoglobin ABG Sodium ABG Potassium ABG Glucose Oxyhemoglobin Sodium Potassium Chloride Carbon Dioxide BUN Creatinine Glucose POC Glucose 143 H 152 H 111 H Calcium AST Total Protein Albumin Arterial Blood Glucose Phenytoin 10/30/20 10/30/20 10/30/20 06:20 07:53 07:53 WBC RBC 3.23 L Hgb 9.2 L Hct 26.9 L MCHC Lymph % (Auto) 12.4 L [place] % (Auto) Lymph # (Auto) [place] # (Auto) Seg Neutrophils % 76.0 H Seg Neuts % (Manual) Lymphocytes % (Manual) Seg Neutrophils # Seg Neutrophils # Man Lymphocytes # (Manual) ABG pH POC ABG pCO2 POC ABG pO2 ABG pO2 ABG HCO3 ABG O2 Saturation ABG Base Excess ABG Hemoglobin ABG Oxyhemoglobin ABG Sodium ABG Potassium ABG Glucose Oxyhemoglobin Sodium Potassium 3.0 L Chloride Carbon Dioxide BUN 6 L Creatinine Glucose 107 H POC Glucose 116 H Calcium AST 43 H Total Protein 5.9 L Albumin 2.7 L Arterial Blood Glucose Phenytoin 10/30/20 10/30/20 10/30/20 12:08 16:05 21:35 WBC RBC Hgb Hct MCHC Lymph % (Auto) [place] % (Auto) Lymph # (Auto) [place] # (Auto) Seg Neutrophils % Seg Neuts % (Manual) Lymphocytes % (Manual) Seg Neutrophils # Seg Neutrophils # Man Lymphocytes # (Manual) ABG pH POC ABG pCO2 POC ABG pO2 ABG pO2 ABG HCO3 ABG O2 Saturation ABG Base Excess ABG Hemoglobin ABG Oxyhemoglobin ABG Sodium ABG Potassium ABG Glucose Oxyhemoglobin Sodium Potassium Chloride Carbon Dioxide BUN Creatinine Glucose POC Glucose 115 H 107 H 114 H Calcium AST Total Protein Albumin Arterial Blood Glucose Phenytoin 10/31/20 10/31/20 04:58 11:40 WBC RBC Hgb Hct MCHC Lymph % (Auto) [place] % (Auto) Lymph # (Auto) [place] # (Auto) Seg Neutrophils % Seg Neuts % (Manual) Lymphocytes % (Manual) Seg Neutrophils # Seg Neutrophils # Man Lymphocytes # (Manual) ABG pH POC ABG pCO2 POC ABG pO2 ABG pO2 ABG HCO3 ABG O2 Saturation ABG Base Excess ABG Hemoglobin ABG Oxyhemoglobin ABG Sodium ABG Potassium ABG Glucose Oxyhemoglobin Sodium Potassium Chloride Carbon Dioxide BUN Creatinine Glucose POC Glucose 119 H Calcium AST Total Protein Albumin Arterial Blood Glucose Phenytoin 4.4 L Allied health notes reviewed: RT
--- NOTE | 2020-10-31 17:11 | Progress Note ---
Assessment and Plan TAssessment and Plan 1) Acute respiratory failure Current Visit: Yes Status: Acute Qualifiers: Respiratory failure complication: hypoxia Qualified Code(s): J96.01 - Acute respiratory failure with hypoxia Plan to address problem: Extubated on 10/26 Stable No need for supplemental oxygen (2) Status epilepticus Current Visit: Yes Status: Acute Plan to address problem: Improved (3) Hypertensive emergency Current Visit: Yes Status: Acute Plan to address problem: Stable (4) Acute encephalopathy Current Visit: Yes Status: Acute Plan to address problem: Improved (5) Leukocytosis Current Visit: Yes Status: Acute Plan to address problem: Improved (6) DVT prophylaxis Current Visit: Yes Status: Acute Plan to address problem: SCD to bilateral lower extremities while in bed, prophylactic anticoagulation (7) Deebility Needs Subacute rehab and SNF Subjective Date of service: 10/31/20 Principal diagnosis: Ac hypoxemic & hypercapnic resp failure; Status epilepticus; HTNsive emerge Interval history: 65 YO Female with Obesity, HTN, presents to ED for evaluation. Patient is intubated and on ventilatory support at the time of my evaluation and is unable to provide history. Patient history is taken from EMS staff, ED staff. As per staff the patient was found down and unresponsive by her neighbor. Patient neighbor describe seizure-like activity. EMS was notified and upon arrival the patient was found to be in distress and actively seizing. Patient treated with 2 mg of Ativan which terminated the seizures. The patient was subsequently transported to [facility] for further evaluation and care of the aforementioned symptoms. Patient was seen and evaluated in the emergency department. All lab and imaging studies reviewed. Patient found to have symptoms consistent with status epilepticus which was evidenced by recurrent seizures in the emergency department with concomitant decrease in pulse oximetry to 84% on room air. The patient was also found to have hypertensive emergency with a blood pressure of 223/143. The patient was deemed unable to protect her airway and was intubated for airway protection. Patient also found to have acute encephalopathy. Patient admitted to ICU due to increased risk of decompensation. Critical care team consulted in ED. No prior admission for review. No medication listed at time of admission for reconciliation. Advanced care planning conducted in ED. 10/27/20 Pateint transferred to floor Stable No seizures 10/28/20 Patient says she has support system at home On further inquiry she is trying to depend on her neighbor Relatives in [place] Unable to walk upto restroom No ADLs performed May need SNF placement 10/29/20 Placement issues Needs SNF 10/30/20 Stable for Discharge Etienne patient Informed about need for SNF 10/31/20 Waiting for placement Objective - Constitutional Vitals: Vital Signs - 12hr 10/31/20 15:00 Pulse Rate 68 General appearance: Present: no acute distress, well-nourished - EENT Eyes: PERRL, EOM intact ENT: hearing intact, clear oral mucosa Ears: bilateral: normal - Neck Neck: supple, normal ROM - Respiratory Respiratory effort: normal Respiratory: bilateral: CTA - Breasts Breasts: normal - Cardiovascular Heart rate: 78 Rhythm: regular Heart Sounds: Present: S1 & S2. Absent: gallop, rub Extremities: pulses intact, No edema, normal color, Full ROM - Gastrointestinal General gastrointestinal: Present: soft, non-tender, non-distended, normal bowel sounds - Genitourinary Female genitourinary: normal - Integumentary Integumentary: clear, warm, dry - Musculoskeletal Musculoskeletal: 1, strength equal bilaterally - Neurologic Neurologic: moves all extremities - Psychiatric Psychiatric: memory intact, appropriate mood/affect, intact judgment & insight - Labs CBC & Chem 7: 10/30/20 07:53 10/30/20 07:53 Labs: Abnormal lab results 10/30/20 10/31/20 10/31/20 Range/Units 21:35 04:58 11:40 POC Glucose 114 H 119 H (70-105) mg/dL Phenytoin 4.4 L (10.0-20.0) ug/mL HEART Score - HEART Score Troponin: Troponin T 0.015 ng/mL (0.00-0.029) 10/14/20 13:36
[2020-10-31] MEDS: ACETAMINOPHEN 325 MG TAB PO PRN (21:52)
[2020-10-31] MEDS: LORazepam 2 MG/ML VIAL IV PRN (21:53)
[2020-10-31] MEDS: QUEtiapine 100 MG TAB PO SCH (21:53)
[2020-11-01] MEDS: METOCLOPRAMIDE 10 MG/2 ML INJ IV SCH ×5 (02:40→21:31)
[2020-11-01] MEDS: PHENYTOIN 100 MG CAPSULE.ER PO SCH ×3 (07:29→21:32)
--- NOTE | 2020-11-01 09:39 | Progress Note ---
Assessment and Plan Patient alert, awake. Patient Obese, resting on room air. O2 saturation 97%. No complaint of chest pain, shortness of breath or cough at this time. No history of smoking, alcohol or drug abuse. 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 Not m arried. Has no children. Patient afebrile.. No leukocytosis. Chest xray done 10/20/20 reported Improved left basilar subsegmental atelectasis. Patient admitted for seizures, intubated and extubated. Patient is on albuterol inhaler, S/C heparin and famotidine. Patient is on Keppra for seizures. - Patient Problems (1) Acute respiratory failure Current Visit: Yes Status: Acute Qualifiers: Respiratory failure complication: hypoxia Qualified Code(s): J96.01 - Acute respiratory failure with hypoxia Plan to address problem: Patient intubated and extubated for seizures. Patient presently on room air and O2 saturation running 97% Patient is on albuterol inhaler prn for shortness of breath. No complaint of shortness of breath at this time. (2) Hypertensive emergency Current Visit: Yes Status: Acute Plan to address problem: Management as per primary care. (3) Acute encephalopathy Current Visit: Yes Status: Acute Plan to address problem: Appears improved. Management as per primary care. (4) Seizure Current Visit: Yes Status: Acute Plan to address problem: Patient is on Keppra. Also given dilantin. Management as per primary care and neurology. Subjective Date of service: 11/01/20 Principal diagnosis: Ac hypoxemic & hypercapnic resp failure; Status epilepticus; HTNsive emerge Interval history: Patient alert, awake. Patient Obese, resting on room air. O2 saturation 97%. No complaint of chest pain, shortness of breath or cough at this time. No history of smoking, alcohol or drug abuse. 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 Not . Has no children. Patient afebrile.. No leukocytosis. Chest xray done 10/20/20 reported Improved left basilar subsegmental atelectasis. Patient admitted for seizures, intubated and extubated. Patient is on albuterol inhaler, S/C heparin and famotidine. Patient is on Keppra for seizures. Objective Vital Signs - 12hr 10/31/20 10/31/20 11/01/20 21:52 23:38 03:36 Temperature 97.8 F 98.0 F Pulse Rate 66 Respiratory 18 20 18 Rate Blood Pressure 101/47 142/81 O2 Sat by Pulse 92 Oximetry 11/01/20 07:32 Temperature 97.6 F Pulse Rate 71 Respiratory 18 Rate Blood Pressure 130/71 O2 Sat by Pulse 97 Oximetry Constitutional: no acute distress, alert Eyes: non-icteric ENT: oropharynx moist, other (ETT 24 cm NATIVIDAD) Neck: supple, no lymphadenopathy, no JVD Effort: normal Ascultation: Bilateral: diminished breath sounds, rhonchi (scant) Percussion: Bilateral: not dull Cardiovascular: regular rate and rhythm Gastrointestinal: normoactive bowel sounds, soft, non-tender, other (Distended, firm) Integumentary: normal Extremities: no cyanosis, no edema, pink and warm, pulses normal Neurologic: non-focal exam (grossly), pupils equal and round, other (drifs to sleep, easily roused, obeys simple commands) Psychiatric: mood appropriate, affect normal, other (sedated) CBC and BMP: 10/30/20 07:53 10/30/20 07:53 ABG, PT/INR, D-dimer: ABG ABG pH 7.393 (7.320-7.450) 10/21/20 13:43 POC ABG pCO2 34.4 mmHg (32.0-48.0) 10/21/20 13:43 ABG pCO2 46.2 mm Hg 10/19/20 04:55 POC ABG pO2 79.6 mmHg (83-108) L 10/21/20 13:43 ABG pO2 84.7 mm Hg (80.0-90.0) 10/19/20 04:55 POC ABG HCO3 20.5 10/21/20 13:43 ABG O2 Saturation 96.7 % (95.0-99.0) 10/19/20 04:55 PT/INR, D-dimer PT 14.0 Sec. (12.2-14.9) 10/14/20 13:36 INR 1.07 (0.87-1.13) 10/14/20 13:36 Abnormal lab findings: Abnormal Labs 10/14/20 10/14/20 10/14/20 13:36 13:36 14:22 WBC 14.7 H RBC Hgb Hct MCHC 35 H Lymph % (Auto) [place] % (Auto) Lymph # (Auto) [place] # (Auto) Seg Neutrophils % Seg Neuts % (Manual) 89.0 H Lymphocytes % (Manual) 4.0 L Seg Neutrophils # Seg Neutrophils # Man 13.1 H Lymphocytes # (Manual) 0.6 L ABG pH 7.298 L POC ABG pCO2 POC ABG pO2 ABG pO2 285.8 H ABG HCO3 ABG O2 Saturation 99.5 H ABG Base Excess -4.1 L ABG Hemoglobin ABG Oxyhemoglobin ABG Sodium ABG Potassium ABG Glucose Oxyhemoglobin Sodium 131 L Potassium Chloride 97.2 L Carbon Dioxide BUN Creatinine Glucose 170 H POC Glucose Calcium AST Total Protein Albumin Arterial Blood Glucose Phenytoin 10/14/20 10/15/20 10/15/20 17:09 03:35 04:33 WBC RBC Hgb Hct MCHC 36 H Lymph % (Auto) 9.6 L [place] % (Auto) 10.1 H Lymph # (Auto) 1.0 L [place] # (Auto) 1.1 H Seg Neutrophils % 79.8 H Seg Neuts % (Manual) Lymphocytes % (Manual) Seg Neutrophils # 8.4 H Seg Neutrophils # Man Lymphocytes # (Manual) ABG pH 7.536 H POC ABG pCO2 POC ABG pO2 ABG pO2 185.0 H 110.2 H ABG HCO3 ABG O2 Saturation 99.2 H ABG Base Excess ABG Hemoglobin ABG Oxyhemoglobin ABG Sodium ABG Potassium ABG Glucose Oxyhemoglobin Sodium Potassium Chloride Carbon Dioxide BUN Creatinine Glucose POC Glucose Calcium AST Total Protein Albumin Arterial Blood Glucose Phenytoin 10/15/20 10/15/20 10/16/20 04:33 13:12 00:09 WBC RBC Hgb Hct MCHC Lymph % (Auto) [place] % (Auto) Lymph # (Auto) [place] # (Auto) Seg Neutrophils % Seg Neuts % (Manual) Lymphocytes % (Manual) Seg Neutrophils # Seg Neutrophils # Man Lymphocytes # (Manual) ABG pH 7.297 L POC ABG pCO2 51.0 H POC ABG pO2 56.7 L ABG pO2 ABG HCO3 ABG O2 Saturation ABG Base Excess ABG Hemoglobin ABG Oxyhemoglobin 84.6 L ABG Sodium 134.4 L ABG Potassium ABG Glucose 118 H Oxyhemoglobin Sodium Potassium Chloride Carbon Dioxide BUN Creatinine Glucose 120 H POC Glucose 114 H Calcium AST Total Protein Albumin Arterial Blood Glucose 118 H Phenytoin 10/16/20 10/16/20 10/17/20 05:42 05:46 04:08 WBC RBC Hgb Hct MCHC Lymph % (Auto) [place] % (Auto) Lymph # (Auto) [place] # (Auto) Seg Neutrophils % Seg Neuts % (Manual) Lymphocytes % (Manual) Seg Neutrophils # Seg Neutrophils # Man Lymphocytes # (Manual) ABG pH POC ABG pCO2 POC ABG pO2 ABG pO2 96.6 H ABG HCO3 ABG O2 Saturation ABG Base Excess ABG Hemoglobin ABG Oxyhemoglobin ABG Sodium 132.6 L ABG Potassium ABG Glucose 112 H Oxyhemoglobin Sodium Potassium Chloride Carbon Dioxide BUN Creatinine Glucose POC Glucose 106 H Calcium AST Total Protein Albumin Arterial Blood Glucose 112 H Phenytoin 10/17/20 10/17/20 10/17/20 09:23 09:23 10:46 WBC 12.3 H RBC Hgb Hct MCHC Lymph % (Auto) [place] % (Auto) Lymph # (Auto) [place] # (Auto) Seg Neutrophils % Seg Neuts % (Manual) Lymphocytes % (Manual) Seg Neutrophils # Seg Neutrophils # Man Lymphocytes # (Manual) ABG pH POC ABG pCO2 POC ABG pO2 71.6 L ABG pO2 ABG HCO3 ABG O2 Saturation ABG Base Excess ABG Hemoglobin ABG Oxyhemoglobin 92.6 L ABG Sodium 134.8 L ABG Potassium ABG Glucose 105 H Oxyhemoglobin Sodium Potassium Chloride Carbon Dioxide 21 L BUN 19 H Creatinine Glucose POC Glucose Calcium AST Total Protein Albumin Arterial Blood Glucose 105 H Phenytoin 10/17/20 10/18/20 10/18/20 23:43 04:18 08:32 WBC RBC Hgb Hct MCHC Lymph % (Auto) [place] % (Auto) Lymph # (Auto) [place] # (Auto) Seg Neutrophils % Seg Neuts % (Manual) Lymphocytes % (Manual) Seg Neutrophils # Seg Neutrophils # Man Lymphocytes # (Manual) ABG pH POC ABG pCO2 POC ABG pO2 81.9 L ABG pO2 ABG HCO3 ABG O2 Saturation ABG Base Excess ABG Hemoglobin ABG Oxyhemoglobin ABG Sodium 133.3 L ABG Potassium ABG Glucose 125 H Oxyhemoglobin Sodium Potassium Chloride Carbon Dioxide BUN Creatinine Glucose POC Glucose 118 H Calcium AST Total Protein Albumin Arterial Blood Glucose 125 H Phenytoin 7.1 L 10/18/20 10/18/20 10/18/20 08:32 08:32 12:34 WBC RBC Hgb Hct MCHC Lymph % (Auto) 12.4 L [place] % (Auto) Lymph # (Auto) [place] # (Auto) Seg Neutrophils % 77.0 H Seg Neuts % (Manual) Lymphocytes % (Manual) Seg Neutrophils # Seg Neutrophils # Man Lymphocytes # (Manual) ABG pH POC ABG pCO2 POC ABG pO2 ABG pO2 ABG HCO3 ABG O2 Saturation ABG Base Excess ABG Hemoglobin ABG Oxyhemoglobin ABG Sodium ABG Potassium ABG Glucose Oxyhemoglobin Sodium 135 L Potassium Chloride Carbon Dioxide BUN 21 H Creatinine Glucose 131 H POC Glucose 121 H Calcium AST Total Protein Albumin Arterial Blood Glucose Phenytoin 10/18/20 10/18/20 10/19/20 18:12 23:47 04:55 WBC RBC Hgb Hct MCHC Lymph % (Auto) [place] % (Auto) Lymph # (Auto) [place] # (Auto) Seg Neutrophils % Seg Neuts % (Manual) Lymphocytes % (Manual) Seg Neutrophils # Seg Neutrophils # Man Lymphocytes # (Manual) ABG pH POC ABG pCO2 POC ABG pO2 ABG pO2 ABG HCO3 27.1 H ABG O2 Saturation ABG Base Excess ABG Hemoglobin 11.1 L ABG Oxyhemoglobin ABG Sodium ABG Potassium ABG Glucose Oxyhemoglobin 94.9 L Sodium Potassium Chloride Carbon Dioxide BUN Creatinine Glucose POC Glucose 133 H 142 H Calcium AST Total Protein Albumin Arterial Blood Glucose Phenytoin 10/19/20 10/19/20 10/19/20 06:02 07:59 12:35 WBC RBC Hgb Hct MCHC Lymph % (Auto) [place] % (Auto) Lymph # (Auto) [place] # (Auto) Seg Neutrophils % Seg Neuts % (Manual) Lymphocytes % (Manual) Seg Neutrophils # Seg Neutrophils # Man Lymphocytes # (Manual) ABG pH POC ABG pCO2 POC ABG pO2 ABG pO2 ABG HCO3 ABG O2 Saturation ABG Base Excess ABG Hemoglobin ABG Oxyhemoglobin ABG Sodium ABG Potassium ABG Glucose Oxyhemoglobin Sodium Potassium Chloride Carbon Dioxide BUN Creatinine Glucose 144 H POC Glucose 143 H 132 H Calcium AST Total Protein Albumin Arterial Blood Glucose Phenytoin 10/19/20 10/19/20 10/19/20 16:12 16:31 23:17 WBC RBC Hgb Hct MCHC Lymph % (Auto) [place] % (Auto) Lymph # (Auto) [place] # (Auto) Seg Neutrophils % Seg Neuts % (Manual) Lymphocytes % (Manual) Seg Neutrophils # Seg Neutrophils # Man Lymphocytes # (Manual) ABG pH 7.461 H POC ABG pCO2 POC ABG pO2 75.8 L ABG pO2 ABG HCO3 ABG O2 Saturation ABG Base Excess ABG Hemoglobin ABG Oxyhemoglobin ABG Sodium 134.0 L ABG Potassium ABG Glucose 156 H Oxyhemoglobin Sodium Potassium Chloride Carbon Dioxide BUN Creatinine Glucose POC Glucose 120 H 128 H Calcium AST Total Protein Albumin Arterial Blood Glucose 156 H Phenytoin 10/20/20 10/20/20 10/20/20 03:25 05:26 12:12 WBC RBC Hgb Hct MCHC Lymph % (Auto) [place] % (Auto) Lymph # (Auto) [place] # (Auto) Seg Neutrophils % Seg Neuts % (Manual) Lymphocytes % (Manual) Seg Neutrophils # Seg Neutrophils # Man Lymphocytes # (Manual) ABG pH POC ABG pCO2 POC ABG pO2 ABG pO2 ABG HCO3 ABG O2 Saturation ABG Base Excess ABG Hemoglobin ABG Oxyhemoglobin ABG Sodium 134.0 L ABG Potassium ABG Glucose 129 H Oxyhemoglobin Sodium Potassium Chloride Carbon Dioxide BUN Creatinine Glucose POC Glucose 125 H 136 H Calcium AST Total Protein Albumin Arterial Blood Glucose 129 H Phenytoin 10/20/20 10/21/20 10/21/20 17:58 00:09 04:14 WBC RBC Hgb Hct MCHC Lymph % (Auto) [place] % (Auto) Lymph # (Auto) [place] # (Auto) Seg Neutrophils % Seg Neuts % (Manual) Lymphocytes % (Manual) Seg Neutrophils # Seg Neutrophils # Man Lymphocytes # (Manual) ABG pH POC ABG pCO2 POC ABG pO2 ABG pO2 ABG HCO3 ABG O2 Saturation ABG Base Excess ABG Hemoglobin ABG Oxyhemoglobin ABG Sodium 134.6 L ABG Potassium 4.8 H ABG Glucose 145 H Oxyhemoglobin Sodium Potassium Chloride Carbon Dioxide BUN Creatinine Glucose POC Glucose 148 H 144 H Calcium AST Total Protein Albumin Arterial Blood Glucose 145 H Phenytoin 10/21/20 10/21/20 10/21/20 04:48 05:17 12:43 WBC RBC Hgb Hct MCHC Lymph % (Auto) [place] % (Auto) Lymph # (Auto) [place] # (Auto) Seg Neutrophils % Seg Neuts % (Manual) Lymphocytes % (Manual) Seg Neutrophils # Seg Neutrophils # Man Lymphocytes # (Manual) ABG pH POC ABG pCO2 POC ABG pO2 ABG pO2 ABG HCO3 ABG O2 Saturation ABG Base Excess ABG Hemoglobin ABG Oxyhemoglobin ABG Sodium ABG Potassium ABG Glucose Oxyhemoglobin Sodium Potassium 5.1 H Chloride Carbon Dioxide BUN 36 H Creatinine 1.3 H D Glucose 137 H POC Glucose 132 H 133 H Calcium AST Total Protein Albumin Arterial Blood Glucose Phenytoin 10/21/20 10/21/20 10/21/20 13:43 18:45 18:45 WBC 13.2 H RBC Hgb Hct MCHC Lymph % (Auto) 7.9 L [place] % (Auto) 11.1 H Lymph # (Auto) 1.1 L [place] # (Auto) 1.5 H Seg Neutrophils % 79.8 H Seg Neuts % (Manual) Lymphocytes % (Manual) Seg Neutrophils # 10.6 H Seg Neutrophils # Man Lymphocytes # (Manual) ABG pH POC ABG pCO2 POC ABG pO2 79.6 L ABG pO2 ABG HCO3 ABG O2 Saturation ABG Base Excess ABG Hemoglobin ABG Oxyhemoglobin ABG Sodium 135.8 L ABG Potassium 4.9 H ABG Glucose 155 H Oxyhemoglobin Sodium Potassium Chloride Carbon Dioxide BUN Creatinine Glucose POC Glucose Calcium AST Total Protein Albumin Arterial Blood Glucose 155 H Phenytoin 6.7 L 10/22/20 10/22/20 10/22/20 04:48 05:31 12:30 WBC RBC Hgb Hct MCHC Lymph % (Auto) [place] % (Auto) Lymph # (Auto) [place] # (Auto) Seg Neutrophils % Seg Neuts % (Manual) Lymphocytes % (Manual) Seg Neutrophils # Seg Neutrophils # Man Lymphocytes # (Manual) ABG pH POC ABG pCO2 POC ABG pO2 ABG pO2 ABG HCO3 ABG O2 Saturation ABG Base Excess ABG Hemoglobin ABG Oxyhemoglobin ABG Sodium ABG Potassium ABG Glucose Oxyhemoglobin Sodium Potassium Chloride Carbon Dioxide BUN Creatinine Glucose POC Glucose 124 H 124 H Calcium AST Total Protein Albumin Arterial Blood Glucose Phenytoin 6.6 L 10/22/20 10/23/20 10/23/20 18:04 00:09 00:16 WBC RBC Hgb Hct MCHC Lymph % (Auto) [place] % (Auto) Lymph # (Auto) [place] # (Auto) Seg Neutrophils % Seg Neuts % (Manual) Lymphocytes % (Manual) Seg Neutrophils # Seg Neutrophils # Man Lymphocytes # (Manual) ABG pH POC ABG pCO2 POC ABG pO2 ABG pO2 ABG HCO3 ABG O2 Saturation ABG Base Excess ABG Hemoglobin ABG Oxyhemoglobin ABG Sodium ABG Potassium ABG Glucose Oxyhemoglobin Sodium Potassium Chloride 109.6 H Carbon Dioxide 16 L BUN 68 H Creatinine 2.3 H D Glucose 148 H POC Glucose 130 H 149 H Calcium 8.3 L AST Total Protein Albumin Arterial Blood Glucose Phenytoin 10/23/20 10/23/20 10/23/20 05:33 08:07 11:43 WBC RBC 3.41 L Hgb 9.7 L Hct 29.8 L MCHC Lymph % (Auto) 9.9 L [place] % (Auto) 15.0 H Lymph # (Auto) 0.8 L [place] # (Auto) 1.2 H Seg Neutrophils % 72.5 H Seg Neuts % (Manual) Lymphocytes % (Manual) Seg Neutrophils # Seg Neutrophils # Man Lymphocytes # (Manual) ABG pH POC ABG pCO2 POC ABG pO2 ABG pO2 ABG HCO3 ABG O2 Saturation ABG Base Excess ABG Hemoglobin ABG Oxyhemoglobin ABG Sodium ABG Potassium ABG Glucose Oxyhemoglobin Sodium Potassium Chloride Carbon Dioxide BUN Creatinine Glucose POC Glucose 135 H 140 H Calcium AST Total Protein Albumin Arterial Blood Glucose Phenytoin 10/23/20 10/24/20 10/24/20 17:50 00:08 05:22 WBC RBC Hgb Hct MCHC Lymph % (Auto) [place] % (Auto) Lymph # (Auto) [place] # (Auto) Seg Neutrophils % Seg Neuts % (Manual) Lymphocytes % (Manual) Seg Neutrophils # Seg Neutrophils # Man Lymphocytes # (Manual) ABG pH POC ABG pCO2 POC ABG pO2 ABG pO2 ABG HCO3 ABG O2 Saturation ABG Base Excess ABG Hemoglobin ABG Oxyhemoglobin ABG Sodium ABG Potassium ABG Glucose Oxyhemoglobin Sodium Potassium Chloride Carbon Dioxide BUN Creatinine Glucose POC Glucose 121 H 131 H 132 H Calcium AST Total Protein Albumin Arterial Blood Glucose Phenytoin 10/24/20 10/24/20 10/24/20 10:10 10:10 11:23 WBC RBC 3.61 L Hgb Hct MCHC Lymph % (Auto) 8.9 L [place] % (Auto) 10.4 H Lymph # (Auto) 0.9 L [place] # (Auto) 1.0 H Seg Neutrophils % 78.3 H Seg Neuts % (Manual) Lymphocytes % (Manual) Seg Neutrophils # 7.8 H Seg Neutrophils # Man Lymphocytes # (Manual) ABG pH POC ABG pCO2 POC ABG pO2 ABG pO2 ABG HCO3 ABG O2 Saturation ABG Base Excess ABG Hemoglobin ABG Oxyhemoglobin ABG Sodium ABG Potassium ABG Glucose Oxyhemoglobin Sodium 146 H Potassium Chloride 115.8 H Carbon Dioxide BUN 40 H Creatinine Glucose 139 H POC Glucose 121 H Calcium AST Total Protein 6.2 L Albumin 2.9 L Arterial Blood Glucose Phenytoin 10/24/20 10/29/20 10/29/20 23:45 01:09 06:01 WBC RBC Hgb Hct MCHC Lymph % (Auto) [place] % (Auto) Lymph # (Auto) [place] # (Auto) Seg Neutrophils % Seg Neuts % (Manual) Lymphocytes % (Manual) Seg Neutrophils # Seg Neutrophils # Man Lymphocytes # (Manual) ABG pH POC ABG pCO2 POC ABG pO2 ABG pO2 ABG HCO3 ABG O2 Saturation ABG Base Excess ABG Hemoglobin ABG Oxyhemoglobin ABG Sodium ABG Potassium ABG Glucose Oxyhemoglobin Sodium Potassium Chloride Carbon Dioxide BUN Creatinine Glucose POC Glucose 112 H 128 H 120 H Calcium AST Total Protein Albumin Arterial Blood Glucose Phenytoin 10/29/20 10/29/20 10/29/20 11:22 18:05 23:38 WBC RBC Hgb Hct MCHC Lymph % (Auto) [place] % (Auto) Lymph # (Auto) [place] # (Auto) Seg Neutrophils % Seg Neuts % (Manual) Lymphocytes % (Manual) Seg Neutrophils # Seg Neutrophils # Man Lymphocytes # (Manual) ABG pH POC ABG pCO2 POC ABG pO2 ABG pO2 ABG HCO3 ABG O2 Saturation ABG Base Excess ABG Hemoglobin ABG Oxyhemoglobin ABG Sodium ABG Potassium ABG Glucose Oxyhemoglobin Sodium Potassium Chloride Carbon Dioxide BUN Creatinine Glucose POC Glucose 143 H 152 H 111 H Calcium AST Total Protein Albumin Arterial Blood Glucose Phenytoin 10/30/20 10/30/20 10/30/20 06:20 07:53 07:53 WBC RBC 3.23 L Hgb 9.2 L Hct 26.9 L MCHC Lymph % (Auto) 12.4 L [place] % (Auto) Lymph # (Auto) [place] # (Auto) Seg Neutrophils % 76.0 H Seg Neuts % (Manual) Lymphocytes % (Manual) Seg Neutrophils # Seg Neutrophils # Man Lymphocytes # (Manual) ABG pH POC ABG pCO2 POC ABG pO2 ABG pO2 ABG HCO3 ABG O2 Saturation ABG Base Excess ABG Hemoglobin ABG Oxyhemoglobin ABG Sodium ABG Potassium ABG Glucose Oxyhemoglobin Sodium Potassium 3.0 L Chloride Carbon Dioxide BUN 6 L Creatinine Glucose 107 H POC Glucose 116 H Calcium AST 43 H Total Protein 5.9 L Albumin 2.7 L Arterial Blood Glucose Phenytoin 10/30/20 10/30/20 10/30/20 12:08 16:05 21:35 WBC RBC Hgb Hct MCHC Lymph % (Auto) [place] % (Auto) Lymph # (Auto) [place] # (Auto) Seg Neutrophils % Seg Neuts % (Manual) Lymphocytes % (Manual) Seg Neutrophils # Seg Neutrophils # Man Lymphocytes # (Manual) ABG pH POC ABG pCO2 POC ABG pO2 ABG pO2 ABG HCO3 ABG O2 Saturation ABG Base Excess ABG Hemoglobin ABG Oxyhemoglobin ABG Sodium ABG Potassium ABG Glucose Oxyhemoglobin Sodium Potassium Chloride Carbon Dioxide BUN Creatinine Glucose POC Glucose 115 H 107 H 114 H Calcium AST Total Protein Albumin Arterial Blood Glucose Phenytoin 10/31/20 10/31/20 04:58 11:40 WBC RBC Hgb Hct MCHC Lymph % (Auto) [place] % (Auto) Lymph # (Auto) [place] # (Auto) Seg Neutrophils % Seg Neuts % (Manual) Lymphocytes % (Manual) Seg Neutrophils # Seg Neutrophils # Man Lymphocytes # (Manual) ABG pH POC ABG pCO2 POC ABG pO2 ABG pO2 ABG HCO3 ABG O2 Saturation ABG Base Excess ABG Hemoglobin ABG Oxyhemoglobin ABG Sodium ABG Potassium ABG Glucose Oxyhemoglobin Sodium Potassium Chloride Carbon Dioxide BUN Creatinine Glucose POC Glucose 119 H Calcium AST Total Protein Albumin Arterial Blood Glucose Phenytoin 4.4 L Allied health notes reviewed: RT
[2020-11-01] MEDS: levETIRAcetam 500 MG TAB PO SCH ×2 (10:52→21:31)
[2020-11-01] MEDS: DOCUSATE SODIUM 100 MG/10 ML ORAL LIQD PO SCH ×2 (10:52→21:33)
[2020-11-01] MEDS: HEPARIN 5,000 UNIT/1 ML VIAL SUB-Q SCH ×2 (10:52→21:30)
[2020-11-01] MEDS: FAMOTIDINE 20 MG TAB PO SCH ×2 (10:52→21:30)
[2020-11-01] MEDS: LACOSAMIDE 50 MG TAB PO SCH ×2 (11:35→21:32)
[2020-11-01] MEDS: LACOSAMIDE 100 MG TAB PO SCH (19:04)
[2020-11-01] MEDS: POLYETHYLENE GLYCOL 3350 17 GM POWDER PO SCH (21:30)
[2020-11-01] MEDS: QUEtiapine 100 MG TAB PO SCH (21:31)
--- NOTE | 2020-11-02 00:06 | Progress Note ---
Assessment and Plan (1) Acute respiratory failure Current Visit: Yes Status: Acute Qualifiers: Respiratory failure complication: hypoxia Qualified Code(s): J96.01 - Acute respiratory failure with hypoxia Plan to address problem: Extubated and now stable Talking appropriately (2) Status epilepticus Current Visit: Yes Status: Acute Plan to address problem: Seizures resolved (3) Hypertensive emergency Current Visit: Yes Status: Acute Plan to address problem: Blood pressure controlled (4) Acute encephalopathy Current Visit: Yes Status: Acute Plan to address problem: CT head, neuro check, seizure precautions, aspiration precautions, (5) Leukocytosis Current Visit: Yes Status: Acute Plan to address problem: Resolved (6) DVT prophylaxis Current Visit: Yes Status: Acute Plan to address problem: SCD to bilateral lower extremities while in bed, prophylactic anticoagulation (7) Advance care planning Current Visit: Yes Status: Acute Plan to address problem: Disease education conducted, patient is full code, prognosis discussed, +30 minutes. Waiting for shelter facility placement Subjective Date of service: 11/01/20 Principal diagnosis: Ac hypoxemic & hypercapnic resp failure; Status epilepticus; HTNsive emerge Interval history: 65 YO Female with Obesity, HTN, presents to ED for evaluation. Patient is intubated and on ventilatory support at the time of my evaluation and is unable to provide history. Patient history is taken from EMS staff, ED staff. As per staff the patient was found down and unresponsive by her neighbor. Patient neighbor describe seizure-like activity. EMS was notified and upon arrival the patient was found to be in distress and actively seizing. Patient treated with 2 mg of Ativan which terminated the seizures. The patient was subsequently transported to [facility] for further evaluation and care of the aforementioned symptoms. Patient was seen and evaluated in the emergency department. All lab and imaging studies reviewed. Patient found to have symptoms consistent with status epilepticus which was evidenced by recurrent seizures in the emergency department with concomitant decrease in pulse oximetry to 84% on room air. The patient was also found to have hypertensive emergency with a blood pressure of 223/143. The patient was deemed unable to protect her airway and was intubated for airway protection. Patient also found to have acute encephalopathy. Patient admitted to ICU due to increased risk of decompensation. Critical care team consulted in ED. No prior admission for review. No medication listed at time of admission for reconciliation. Advanced care planning conducted in ED. Day # 2 10/15/20 Seizures continue parts room associate consult appreciated Day #3 10/16/2020 Seizures continue Patient on multiple antiepileptic drugs Neurology consult appreciated Objective - Constitutional Vitals: Vital Signs - 12hr 11/01/20 11/01/20 11/01/20 12:00 12:03 16:02 Temperature 97.4 F L 97.9 F 99.4 F Pulse Rate 75 75 77 Respiratory 20 18 18 Rate Blood Pressure 91/55 143/66 Blood Pressure 111/78 [Left] O2 Sat by Pulse 97 98 96 Oximetry 11/01/20 19:21 Temperature 98.2 F Pulse Rate 81 Respiratory 18 Rate Blood Pressure 152/82 Blood Pressure [Left] O2 Sat by Pulse 97 Oximetry General appearance: Present: no acute distress, well-nourished - EENT Eyes: PERRL, EOM intact ENT: hearing intact, clear oral mucosa Ears: bilateral: normal - Neck Neck: supple, normal ROM - Respiratory Respiratory effort: normal Respiratory: bilateral: CTA - Breasts Breasts: normal - Cardiovascular Rhythm: regular Heart Sounds: Present: S1 & S2. Absent: gallop, rub Extremities: pulses intact, No edema, normal color, Full ROM - Gastrointestinal General gastrointestinal: Present: soft, non-tender, non-distended, normal bowel sounds - Genitourinary Female genitourinary: normal - Integumentary Integumentary: clear, warm, dry - Musculoskeletal Musculoskeletal: 1, strength equal bilaterally - Neurologic Neurologic: moves all extremities - Psychiatric Psychiatric: memory intact, appropriate mood/affect, intact judgment & insight - Labs CBC & Chem 7: 10/30/20 07:53 10/30/20 07:53 Labs: Abnormal lab results 11/01/20 11/01/20 Range/Units 11:28 23:54 POC Glucose 159 H 114 H (70-105) mg/dL HEART Score - HEART Score Troponin: Troponin T 0.015 ng/mL (0.00-0.029) 10/14/20 13:36
[2020-11-02] MEDS: METOCLOPRAMIDE 10 MG/2 ML INJ IV SCH (03:20)
[2020-11-02] MEDS: PHENYTOIN 100 MG CAPSULE.ER PO SCH ×3 (05:28→21:17)
[2020-11-02] MEDS: DOCUSATE SODIUM 100 MG/10 ML ORAL LIQD PO SCH ×2 (13:19→21:19)
[2020-11-02] MEDS: levETIRAcetam 500 MG TAB PO SCH ×2 (13:19→21:18)
[2020-11-02] MEDS: HEPARIN 5,000 UNIT/1 ML VIAL SUB-Q SCH ×2 (13:20→21:18)
[2020-11-02] MEDS: FAMOTIDINE 20 MG TAB PO SCH ×2 (13:20→21:18)
[2020-11-02] MEDS: LACOSAMIDE 100 MG TAB PO SCH ×2 (19:01→21:18)
--- NOTE | 2020-11-02 20:59 | Progress Note ---
Assessment and Plan Patient sleeping at this time. Patient is on room air. O2 saturation 98%. No acute respiratory distress. Patient afebrile.. No leukocytosis. Chest xray done 10/20/20 reported Improved left basilar subsegmental atelectasis. Patient admitted for seizures, intubated and extubated. Patient is on albuterol inhaler, S/C heparin and famotidine. Patient is on Keppra for seizures. Patient has No history of smoking, alcohol or drug abuse. 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 Not . Has no children. - Patient Problems (1) Acute respiratory failure Current Visit: Yes Status: Acute Qualifiers: Respiratory failure complication: hypoxia Qualified Code(s): J96.01 - Acute respiratory failure with hypoxia Plan to address problem: Patient intubated and extubated for seizures. Patient presently on room air and O2 saturation running 98% Patient is on albuterol inhaler prn for shortness of breath. No respiratory distress at this time. (2) Hypertensive emergency Current Visit: Yes Status: Acute Plan to address problem: Management as per primary care. (3) Acute encephalopathy Current Visit: Yes Status: Acute Plan to address problem: Appears improved. Management as per primary care. (4) Seizure Current Visit: Yes Status: Acute Plan to address problem: Patient is on Keppra. Also given dilantin. Management as per primary care and neurology. Subjective Date of service: 11/02/20 Principal diagnosis: Ac hypoxemic & hypercapnic resp failure; Status epilepticus; HTNsive emerge Interval history: Patient sleeping at this time. Patient is on room air. O2 saturation 98%. No acute respiratory distress. Patient afebrile.. No leukocytosis. Chest xray done 10/20/20 reported Improved left basilar subsegmental atelectasis. Patient admitted for seizures, intubated and extubated. Patient is on albuterol inhaler, S/C heparin and famotidine. Patient is on Keppra for seizures. Patient has No history of smoking, alcohol or drug abuse. 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 Not . Has no children. Objective Vital Signs - 12hr 11/02/20 11/02/20 11/02/20 12:02 12:50 16:11 Temperature 97.1 F L 98.2 F Pulse Rate 78 78 Respiratory 18 18 Rate Blood Pressure 156/69 155/71 O2 Sat by Pulse 95 95 97 Oximetry 11/02/20 11/02/20 19:35 20:42 Temperature 99.4 F Pulse Rate 79 Respiratory 20 20 Rate Blood Pressure 168/72 O2 Sat by Pulse 98 Oximetry Constitutional: no acute distress, alert Eyes: non-icteric ENT: oropharynx moist, other (ETT 24 cm NATIVIDAD) Neck: supple, no lymphadenopathy, no JVD Effort: normal Ascultation: Bilateral: diminished breath sounds, rhonchi (scant) Percussion: Bilateral: not dull Cardiovascular: regular rate and rhythm Gastrointestinal: normoactive bowel sounds, soft, non-tender, other (Distended, firm) Integumentary: normal Extremities: no cyanosis, no edema, pink and warm, pulses normal Neurologic: non-focal exam (grossly), pupils equal and round, other (drifs to sleep, easily roused, obeys simple commands) Psychiatric: mood appropriate, affect normal, other (sedated) CBC and BMP: 10/30/20 07:53 10/30/20 07:53 ABG, PT/INR, D-dimer: ABG ABG pH 7.393 (7.320-7.450) 10/21/20 13:43 POC ABG pCO2 34.4 mmHg (32.0-48.0) 10/21/20 13:43 ABG pCO2 46.2 mm Hg 10/19/20 04:55 POC ABG pO2 79.6 mmHg (83-108) L 10/21/20 13:43 ABG pO2 84.7 mm Hg (80.0-90.0) 10/19/20 04:55 POC ABG HCO3 20.5 10/21/20 13:43 ABG O2 Saturation 96.7 % (95.0-99.0) 10/19/20 04:55 PT/INR, D-dimer PT 14.0 Sec. (12.2-14.9) 10/14/20 13:36 INR 1.07 (0.87-1.13) 10/14/20 13:36 Abnormal lab findings: Abnormal Labs 10/14/20 10/14/20 10/14/20 13:36 13:36 14:22 WBC 14.7 H RBC Hgb Hct MCHC 35 H Lymph % (Auto) [place] % (Auto) Lymph # (Auto) [place] # (Auto) Seg Neutrophils % Seg Neuts % (Manual) 89.0 H Lymphocytes % (Manual) 4.0 L Seg Neutrophils # Seg Neutrophils # Man 13.1 H Lymphocytes # (Manual) 0.6 L ABG pH 7.298 L POC ABG pCO2 POC ABG pO2 ABG pO2 285.8 H ABG HCO3 ABG O2 Saturation 99.5 H ABG Base Excess -4.1 L ABG Hemoglobin ABG Oxyhemoglobin ABG Sodium ABG Potassium ABG Glucose Oxyhemoglobin Sodium 131 L Potassium Chloride 97.2 L Carbon Dioxide BUN Creatinine Glucose 170 H POC Glucose Calcium AST Total Protein Albumin Arterial Blood Glucose Phenytoin 10/14/20 10/15/20 10/15/20 17:09 03:35 04:33 WBC RBC Hgb Hct MCHC 36 H Lymph % (Auto) 9.6 L [place] % (Auto) 10.1 H Lymph # (Auto) 1.0 L [place] # (Auto) 1.1 H Seg Neutrophils % 79.8 H Seg Neuts % (Manual) Lymphocytes % (Manual) Seg Neutrophils # 8.4 H Seg Neutrophils # Man Lymphocytes # (Manual) ABG pH 7.536 H POC ABG pCO2 POC ABG pO2 ABG pO2 185.0 H 110.2 H ABG HCO3 ABG O2 Saturation 99.2 H ABG Base Excess ABG Hemoglobin ABG Oxyhemoglobin ABG Sodium ABG Potassium ABG Glucose Oxyhemoglobin Sodium Potassium Chloride Carbon Dioxide BUN Creatinine Glucose POC Glucose Calcium AST Total Protein Albumin Arterial Blood Glucose Phenytoin 10/15/20 10/15/20 10/16/20 04:33 13:12 00:09 WBC RBC Hgb Hct MCHC Lymph % (Auto) [place] % (Auto) Lymph # (Auto) [place] # (Auto) Seg Neutrophils % Seg Neuts % (Manual) Lymphocytes % (Manual) Seg Neutrophils # Seg Neutrophils # Man Lymphocytes # (Manual) ABG pH 7.297 L POC ABG pCO2 51.0 H POC ABG pO2 56.7 L ABG pO2 ABG HCO3 ABG O2 Saturation ABG Base Excess ABG Hemoglobin ABG Oxyhemoglobin 84.6 L ABG Sodium 134.4 L ABG Potassium ABG Glucose 118 H Oxyhemoglobin Sodium Potassium Chloride Carbon Dioxide BUN Creatinine Glucose 120 H POC Glucose 114 H Calcium AST Total Protein Albumin Arterial Blood Glucose 118 H Phenytoin 10/16/20 10/16/20 10/17/20 05:42 05:46 04:08 WBC RBC Hgb Hct MCHC Lymph % (Auto) [place] % (Auto) Lymph # (Auto) [place] # (Auto) Seg Neutrophils % Seg Neuts % (Manual) Lymphocytes % (Manual) Seg Neutrophils # Seg Neutrophils # Man Lymphocytes # (Manual) ABG pH POC ABG pCO2 POC ABG pO2 ABG pO2 96.6 H ABG HCO3 ABG O2 Saturation ABG Base Excess ABG Hemoglobin ABG Oxyhemoglobin ABG Sodium 132.6 L ABG Potassium ABG Glucose 112 H Oxyhemoglobin Sodium Potassium Chloride Carbon Dioxide BUN Creatinine Glucose POC Glucose 106 H Calcium AST Total Protein Albumin Arterial Blood Glucose 112 H Phenytoin 10/17/20 10/17/20 10/17/20 09:23 09:23 10:46 WBC 12.3 H RBC Hgb Hct MCHC Lymph % (Auto) [place] % (Auto) Lymph # (Auto) [place] # (Auto) Seg Neutrophils % Seg Neuts % (Manual) Lymphocytes % (Manual) Seg Neutrophils # Seg Neutrophils # Man Lymphocytes # (Manual) ABG pH POC ABG pCO2 POC ABG pO2 71.6 L ABG pO2 ABG HCO3 ABG O2 Saturation ABG Base Excess ABG Hemoglobin ABG Oxyhemoglobin 92.6 L ABG Sodium 134.8 L ABG Potassium ABG Glucose 105 H Oxyhemoglobin Sodium Potassium Chloride Carbon Dioxide 21 L BUN 19 H Creatinine Glucose POC Glucose Calcium AST Total Protein Albumin Arterial Blood Glucose 105 H Phenytoin 10/17/20 10/18/20 10/18/20 23:43 04:18 08:32 WBC RBC Hgb Hct MCHC Lymph % (Auto) [place] % (Auto) Lymph # (Auto) [place] # (Auto) Seg Neutrophils % Seg Neuts % (Manual) Lymphocytes % (Manual) Seg Neutrophils # Seg Neutrophils # Man Lymphocytes # (Manual) ABG pH POC ABG pCO2 POC ABG pO2 81.9 L ABG pO2 ABG HCO3 ABG O2 Saturation ABG Base Excess ABG Hemoglobin ABG Oxyhemoglobin ABG Sodium 133.3 L ABG Potassium ABG Glucose 125 H Oxyhemoglobin Sodium Potassium Chloride Carbon Dioxide BUN Creatinine Glucose POC Glucose 118 H Calcium AST Total Protein Albumin Arterial Blood Glucose 125 H Phenytoin 7.1 L 10/18/20 10/18/20 10/18/20 08:32 08:32 12:34 WBC RBC Hgb Hct MCHC Lymph % (Auto) 12.4 L [place] % (Auto) Lymph # (Auto) [place] # (Auto) Seg Neutrophils % 77.0 H Seg Neuts % (Manual) Lymphocytes % (Manual) Seg Neutrophils # Seg Neutrophils # Man Lymphocytes # (Manual) ABG pH POC ABG pCO2 POC ABG pO2 ABG pO2 ABG HCO3 ABG O2 Saturation ABG Base Excess ABG Hemoglobin ABG Oxyhemoglobin ABG Sodium ABG Potassium ABG Glucose Oxyhemoglobin Sodium 135 L Potassium Chloride Carbon Dioxide BUN 21 H Creatinine Glucose 131 H POC Glucose 121 H Calcium AST Total Protein Albumin Arterial Blood Glucose Phenytoin 10/18/20 10/18/20 10/19/20 18:12 23:47 04:55 WBC RBC Hgb Hct MCHC Lymph % (Auto) [place] % (Auto) Lymph # (Auto) [place] # (Auto) Seg Neutrophils % Seg Neuts % (Manual) Lymphocytes % (Manual) Seg Neutrophils # Seg Neutrophils # Man Lymphocytes # (Manual) ABG pH POC ABG pCO2 POC ABG pO2 ABG pO2 ABG HCO3 27.1 H ABG O2 Saturation ABG Base Excess ABG Hemoglobin 11.1 L ABG Oxyhemoglobin ABG Sodium ABG Potassium ABG Glucose Oxyhemoglobin 94.9 L Sodium Potassium Chloride Carbon Dioxide BUN Creatinine Glucose POC Glucose 133 H 142 H Calcium AST Total Protein Albumin Arterial Blood Glucose Phenytoin 10/19/20 10/19/20 10/19/20 06:02 07:59 12:35 WBC RBC Hgb Hct MCHC Lymph % (Auto) [place] % (Auto) Lymph # (Auto) [place] # (Auto) Seg Neutrophils % Seg Neuts % (Manual) Lymphocytes % (Manual) Seg Neutrophils # Seg Neutrophils # Man Lymphocytes # (Manual) ABG pH POC ABG pCO2 POC ABG pO2 ABG pO2 ABG HCO3 ABG O2 Saturation ABG Base Excess ABG Hemoglobin ABG Oxyhemoglobin ABG Sodium ABG Potassium ABG Glucose Oxyhemoglobin Sodium Potassium Chloride Carbon Dioxide BUN Creatinine Glucose 144 H POC Glucose 143 H 132 H Calcium AST Total Protein Albumin Arterial Blood Glucose Phenytoin 10/19/20 10/19/20 10/19/20 16:12 16:31 23:17 WBC RBC Hgb Hct MCHC Lymph % (Auto) [place] % (Auto) Lymph # (Auto) [place] # (Auto) Seg Neutrophils % Seg Neuts % (Manual) Lymphocytes % (Manual) Seg Neutrophils # Seg Neutrophils # Man Lymphocytes # (Manual) ABG pH 7.461 H POC ABG pCO2 POC ABG pO2 75.8 L ABG pO2 ABG HCO3 ABG O2 Saturation ABG Base Excess ABG Hemoglobin ABG Oxyhemoglobin ABG Sodium 134.0 L ABG Potassium ABG Glucose 156 H Oxyhemoglobin Sodium Potassium Chloride Carbon Dioxide BUN Creatinine Glucose POC Glucose 120 H 128 H Calcium AST Total Protein Albumin Arterial Blood Glucose 156 H Phenytoin 10/20/20 10/20/20 10/20/20 03:25 05:26 12:12 WBC RBC Hgb Hct MCHC Lymph % (Auto) [place] % (Auto) Lymph # (Auto) [place] # (Auto) Seg Neutrophils % Seg Neuts % (Manual) Lymphocytes % (Manual) Seg Neutrophils # Seg Neutrophils # Man Lymphocytes # (Manual) ABG pH POC ABG pCO2 POC ABG pO2 ABG pO2 ABG HCO3 ABG O2 Saturation ABG Base Excess ABG Hemoglobin ABG Oxyhemoglobin ABG Sodium 134.0 L ABG Potassium ABG Glucose 129 H Oxyhemoglobin Sodium Potassium Chloride Carbon Dioxide BUN Creatinine Glucose POC Glucose 125 H 136 H Calcium AST Total Protein Albumin Arterial Blood Glucose 129 H Phenytoin 10/20/20 10/21/20 10/21/20 17:58 00:09 04:14 WBC RBC Hgb Hct MCHC Lymph % (Auto) [place] % (Auto) Lymph # (Auto) [place] # (Auto) Seg Neutrophils % Seg Neuts % (Manual) Lymphocytes % (Manual) Seg Neutrophils # Seg Neutrophils # Man Lymphocytes # (Manual) ABG pH POC ABG pCO2 POC ABG pO2 ABG pO2 ABG HCO3 ABG O2 Saturation ABG Base Excess ABG Hemoglobin ABG Oxyhemoglobin ABG Sodium 134.6 L ABG Potassium 4.8 H ABG Glucose 145 H Oxyhemoglobin Sodium Potassium Chloride Carbon Dioxide BUN Creatinine Glucose POC Glucose 148 H 144 H Calcium AST Total Protein Albumin Arterial Blood Glucose 145 H Phenytoin 10/21/20 10/21/20 10/21/20 04:48 05:17 12:43 WBC RBC Hgb Hct MCHC Lymph % (Auto) [place] % (Auto) Lymph # (Auto) [place] # (Auto) Seg Neutrophils % Seg Neuts % (Manual) Lymphocytes % (Manual) Seg Neutrophils # Seg Neutrophils # Man Lymphocytes # (Manual) ABG pH POC ABG pCO2 POC ABG pO2 ABG pO2 ABG HCO3 ABG O2 Saturation ABG Base Excess ABG Hemoglobin ABG Oxyhemoglobin ABG Sodium ABG Potassium ABG Glucose Oxyhemoglobin Sodium Potassium 5.1 H Chloride Carbon Dioxide BUN 36 H Creatinine 1.3 H D Glucose 137 H POC Glucose 132 H 133 H Calcium AST Total Protein Albumin Arterial Blood Glucose Phenytoin 10/21/20 10/21/20 10/21/20 13:43 18:45 18:45 WBC 13.2 H RBC Hgb Hct MCHC Lymph % (Auto) 7.9 L [place] % (Auto) 11.1 H Lymph # (Auto) 1.1 L [place] # (Auto) 1.5 H Seg Neutrophils % 79.8 H Seg Neuts % (Manual) Lymphocytes % (Manual) Seg Neutrophils # 10.6 H Seg Neutrophils # Man Lymphocytes # (Manual) ABG pH POC ABG pCO2 POC ABG pO2 79.6 L ABG pO2 ABG HCO3 ABG O2 Saturation ABG Base Excess ABG Hemoglobin ABG Oxyhemoglobin ABG Sodium 135.8 L ABG Potassium 4.9 H ABG Glucose 155 H Oxyhemoglobin Sodium Potassium Chloride Carbon Dioxide BUN Creatinine Glucose POC Glucose Calcium AST Total Protein Albumin Arterial Blood Glucose 155 H Phenytoin 6.7 L 10/22/20 10/22/20 10/22/20 04:48 05:31 12:30 WBC RBC Hgb Hct MCHC Lymph % (Auto) [place] % (Auto) Lymph # (Auto) [place] # (Auto) Seg Neutrophils % Seg Neuts % (Manual) Lymphocytes % (Manual) Seg Neutrophils # Seg Neutrophils # Man Lymphocytes # (Manual) ABG pH POC ABG pCO2 POC ABG pO2 ABG pO2 ABG HCO3 ABG O2 Saturation ABG Base Excess ABG Hemoglobin ABG Oxyhemoglobin ABG Sodium ABG Potassium ABG Glucose Oxyhemoglobin Sodium Potassium Chloride Carbon Dioxide BUN Creatinine Glucose POC Glucose 124 H 124 H Calcium AST Total Protein Albumin Arterial Blood Glucose Phenytoin 6.6 L 10/22/20 10/23/20 10/23/20 18:04 00:09 00:16 WBC RBC Hgb Hct MCHC Lymph % (Auto) [place] % (Auto) Lymph # (Auto) [place] # (Auto) Seg Neutrophils % Seg Neuts % (Manual) Lymphocytes % (Manual) Seg Neutrophils # Seg Neutrophils # Man Lymphocytes # (Manual) ABG pH POC ABG pCO2 POC ABG pO2 ABG pO2 ABG HCO3 ABG O2 Saturation ABG Base Excess ABG Hemoglobin ABG Oxyhemoglobin ABG Sodium ABG Potassium ABG Glucose Oxyhemoglobin Sodium Potassium Chloride 109.6 H Carbon Dioxide 16 L BUN 68 H Creatinine 2.3 H D Glucose 148 H POC Glucose 130 H 149 H Calcium 8.3 L AST Total Protein Albumin Arterial Blood Glucose Phenytoin 10/23/20 10/23/20 10/23/20 05:33 08:07 11:43 WBC RBC 3.41 L Hgb 9.7 L Hct 29.8 L MCHC Lymph % (Auto) 9.9 L [place] % (Auto) 15.0 H Lymph # (Auto) 0.8 L [place] # (Auto) 1.2 H Seg Neutrophils % 72.5 H Seg Neuts % (Manual) Lymphocytes % (Manual) Seg Neutrophils # Seg Neutrophils # Man Lymphocytes # (Manual) ABG pH POC ABG pCO2 POC ABG pO2 ABG pO2 ABG HCO3 ABG O2 Saturation ABG Base Excess ABG Hemoglobin ABG Oxyhemoglobin ABG Sodium ABG Potassium ABG Glucose Oxyhemoglobin Sodium Potassium Chloride Carbon Dioxide BUN Creatinine Glucose POC Glucose 135 H 140 H Calcium AST Total Protein Albumin Arterial Blood Glucose Phenytoin 10/23/20 10/24/20 10/24/20 17:50 00:08 05:22 WBC RBC Hgb Hct MCHC Lymph % (Auto) [place] % (Auto) Lymph # (Auto) [place] # (Auto) Seg Neutrophils % Seg Neuts % (Manual) Lymphocytes % (Manual) Seg Neutrophils # Seg Neutrophils # Man Lymphocytes # (Manual) ABG pH POC ABG pCO2 POC ABG pO2 ABG pO2 ABG HCO3 ABG O2 Saturation ABG Base Excess ABG Hemoglobin ABG Oxyhemoglobin ABG Sodium ABG Potassium ABG Glucose Oxyhemoglobin Sodium Potassium Chloride Carbon Dioxide BUN Creatinine Glucose POC Glucose 121 H 131 H 132 H Calcium AST Total Protein Albumin Arterial Blood Glucose Phenytoin 10/24/20 10/24/20 10/24/20 10:10 10:10 11:23 WBC RBC 3.61 L Hgb Hct MCHC Lymph % (Auto) 8.9 L [place] % (Auto) 10.4 H Lymph # (Auto) 0.9 L [place] # (Auto) 1.0 H Seg Neutrophils % 78.3 H Seg Neuts % (Manual) Lymphocytes % (Manual) Seg Neutrophils # 7.8 H Seg Neutrophils # Man Lymphocytes # (Manual) ABG pH POC ABG pCO2 POC ABG pO2 ABG pO2 ABG HCO3 ABG O2 Saturation ABG Base Excess ABG Hemoglobin ABG Oxyhemoglobin ABG Sodium ABG Potassium ABG Glucose Oxyhemoglobin Sodium 146 H Potassium Chloride 115.8 H Carbon Dioxide BUN 40 H Creatinine Glucose 139 H POC Glucose 121 H Calcium AST Total Protein 6.2 L Albumin 2.9 L Arterial Blood Glucose Phenytoin 10/24/20 10/29/20 10/29/20 23:45 01:09 06:01 WBC RBC Hgb Hct MCHC Lymph % (Auto) [place] % (Auto) Lymph # (Auto) [place] # (Auto) Seg Neutrophils % Seg Neuts % (Manual) Lymphocytes % (Manual) Seg Neutrophils # Seg Neutrophils # Man Lymphocytes # (Manual) ABG pH POC ABG pCO2 POC ABG pO2 ABG pO2 ABG HCO3 ABG O2 Saturation ABG Base Excess ABG Hemoglobin ABG Oxyhemoglobin ABG Sodium ABG Potassium ABG Glucose Oxyhemoglobin Sodium Potassium Chloride Carbon Dioxide BUN Creatinine Glucose POC Glucose 112 H 128 H 120 H Calcium AST Total Protein Albumin Arterial Blood Glucose Phenytoin 10/29/20 10/29/20 10/29/20 11:22 18:05 23:38 WBC RBC Hgb Hct MCHC Lymph % (Auto) [place] % (Auto) Lymph # (Auto) [place] # (Auto) Seg Neutrophils % Seg Neuts % (Manual) Lymphocytes % (Manual) Seg Neutrophils # Seg Neutrophils # Man Lymphocytes # (Manual) ABG pH POC ABG pCO2 POC ABG pO2 ABG pO2 ABG HCO3 ABG O2 Saturation ABG Base Excess ABG Hemoglobin ABG Oxyhemoglobin ABG Sodium ABG Potassium ABG Glucose Oxyhemoglobin Sodium Potassium Chloride Carbon Dioxide BUN Creatinine Glucose POC Glucose 143 H 152 H 111 H Calcium AST Total Protein Albumin Arterial Blood Glucose Phenytoin 10/30/20 10/30/20 10/30/20 06:20 07:53 07:53 WBC RBC 3.23 L Hgb 9.2 L Hct 26.9 L MCHC Lymph % (Auto) 12.4 L [place] % (Auto) Lymph # (Auto) [place] # (Auto) Seg Neutrophils % 76.0 H Seg Neuts % (Manual) Lymphocytes % (Manual) Seg Neutrophils # Seg Neutrophils # Man Lymphocytes # (Manual) ABG pH POC ABG pCO2 POC ABG pO2 ABG pO2 ABG HCO3 ABG O2 Saturation ABG Base Excess ABG Hemoglobin ABG Oxyhemoglobin ABG Sodium ABG Potassium ABG Glucose Oxyhemoglobin Sodium Potassium 3.0 L Chloride Carbon Dioxide BUN 6 L Creatinine Glucose 107 H POC Glucose 116 H Calcium AST 43 H Total Protein 5.9 L Albumin 2.7 L Arterial Blood Glucose Phenytoin 10/30/20 10/30/20 10/30/20 12:08 16:05 21:35 WBC RBC Hgb Hct MCHC Lymph % (Auto) [place] % (Auto) Lymph # (Auto) [place] # (Auto) Seg Neutrophils % Seg Neuts % (Manual) Lymphocytes % (Manual) Seg Neutrophils # Seg Neutrophils # Man Lymphocytes # (Manual) ABG pH POC ABG pCO2 POC ABG pO2 ABG pO2 ABG HCO3 ABG O2 Saturation ABG Base Excess ABG Hemoglobin ABG Oxyhemoglobin ABG Sodium ABG Potassium ABG Glucose Oxyhemoglobin Sodium Potassium Chloride Carbon Dioxide BUN Creatinine Glucose POC Glucose 115 H 107 H 114 H Calcium AST Total Protein Albumin Arterial Blood Glucose Phenytoin 10/31/20 10/31/20 11/01/20 04:58 11:40 11:28 WBC RBC Hgb Hct MCHC Lymph % (Auto) [place] % (Auto) Lymph # (Auto) [place] # (Auto) Seg Neutrophils % Seg Neuts % (Manual) Lymphocytes % (Manual) Seg Neutrophils # Seg Neutrophils # Man Lymphocytes # (Manual) ABG pH POC ABG pCO2 POC ABG pO2 ABG pO2 ABG HCO3 ABG O2 Saturation ABG Base Excess ABG Hemoglobin ABG Oxyhemoglobin ABG Sodium ABG Potassium ABG Glucose Oxyhemoglobin Sodium Potassium Chloride Carbon Dioxide BUN Creatinine Glucose POC Glucose 119 H 159 H Calcium AST Total Protein Albumin Arterial Blood Glucose Phenytoin 4.4 L 11/01/20 11/02/20 23:54 05:07 WBC RBC Hgb Hct MCHC Lymph % (Auto) [place] % (Auto) Lymph # (Auto) [place] # (Auto) Seg Neutrophils % Seg Neuts % (Manual) Lymphocytes % (Manual) Seg Neutrophils # Seg Neutrophils # Man Lymphocytes # (Manual) ABG pH POC ABG pCO2 POC ABG pO2 ABG pO2 ABG HCO3 ABG O2 Saturation ABG Base Excess ABG Hemoglobin ABG Oxyhemoglobin ABG Sodium ABG Potassium ABG Glucose Oxyhemoglobin Sodium Potassium Chloride Carbon Dioxide BUN Creatinine Glucose POC Glucose 114 H 160 H Calcium AST Total Protein Albumin Arterial Blood Glucose Phenytoin Allied health notes reviewed: RT
[2020-11-02] MEDS: POLYETHYLENE GLYCOL 3350 17 GM POWDER PO SCH (21:17)
[2020-11-02] MEDS: QUEtiapine 100 MG TAB PO SCH (21:19)
--- NOTE | 2020-11-02 22:43 | Progress Note ---
Assessment and Plan (1) Acute respiratory failure Current Visit: Yes Status: Acute Qualifiers: Respiratory failure complication: hypoxia Qualified Code(s): J96.01 - Acute respiratory failure with hypoxia Plan to address problem: Extubated and now stable Talking appropriately (2) Status epilepticus Current Visit: Yes Status: Acute Plan to address problem: Seizures resolved (3) Hypertensive emergency Current Visit: Yes Status: Acute Plan to address problem: Blood pressure controlled (4) Acute encephalopathy Current Visit: Yes Status: Acute Plan to address problem: CT head, neuro check, seizure precautions, aspiration precautions, (5) Leukocytosis Current Visit: Yes Status: Acute Plan to address problem: Resolved (6) DVT prophylaxis Current Visit: Yes Status: Acute Plan to address problem: SCD to bilateral lower extremities while in bed, prophylactic anticoagulation (7) Discharge planning issues Patient wants retirement facility Patient is severely debilitated and cannot take care of herself at home Patient lives alone Subjective Date of service: 11/02/20 Principal diagnosis: Ac hypoxemic & hypercapnic resp failure; Status epilepticus; HTNsive emerge Interval history: 65 YO Female with Obesity, HTN, presents to ED for evaluation. Patient is intubated and on ventilatory support at the time of my evaluation and is unable to provide history. Patient history is taken from EMS staff, ED staff. As per staff the patient was found down and unresponsive by her neighbor. Patient neighbor describe seizure-like activity. EMS was notified and upon arrival the patient was found to be in distress and actively seizing. Patient treated with 2 mg of Ativan which terminated the seizures. The patient was subsequently transported to [facility] for further evaluation and care of the aforementioned symptoms. Patient was seen and evaluated in the emergency department. All lab and imaging studies reviewed. Patient found to have symptoms consistent with status epilepticus which was evidenced by recurrent seizures in the emergency department with concomitant decrease in pulse oximetry to 84% on room air. The patient was also found to have hypertensive emergency with a blood pressure of 223/143. The patient was deemed unable to protect her airway and was intubated for airway protection. Patient also found to have acute encephalopathy. Patient admitted to ICU due to increased risk of decompensation. Critical care team consulted in ED. No prior admission for review. No medication listed at time of admission for reconciliation. Advanced care planning conducted in ED. Extubated doing well Severely debilitated Patient want subacute rehab Objective - Constitutional Vitals: Vital Signs - 12hr 11/02/20 11/02/20 11/02/20 12:02 12:50 16:11 Temperature 97.1 F L 98.2 F Pulse Rate 78 78 Respiratory 18 18 Rate Blood Pressure 156/69 155/71 O2 Sat by Pulse 95 95 97 Oximetry 11/02/20 11/02/20 19:35 20:42 Temperature 99.4 F Pulse Rate 79 Respiratory 20 20 Rate Blood Pressure 168/72 O2 Sat by Pulse 98 Oximetry General appearance: Present: no acute distress, well-nourished - EENT Eyes: PERRL, EOM intact ENT: hearing intact, clear oral mucosa Ears: bilateral: normal - Neck Neck: supple, normal ROM - Respiratory Respiratory effort: normal Respiratory: bilateral: CTA - Breasts Breasts: normal - Cardiovascular Heart rate: 78 Rhythm: regular Heart Sounds: Present: S1 & S2. Absent: gallop, rub Extremities: pulses intact, No edema, normal color, Full ROM - Gastrointestinal General gastrointestinal: Present: soft, non-tender, non-distended, normal bowel sounds - Genitourinary Female genitourinary: normal - Integumentary Integumentary: clear, warm, dry - Musculoskeletal Musculoskeletal: 1, strength equal bilaterally - Neurologic Neurologic: moves all extremities - Psychiatric Psychiatric: memory intact, appropriate mood/affect, intact judgment & insight - Allied health notes Allied health notes reviewed: nursing, case management - Labs CBC & Chem 7: 10/30/20 07:53 10/30/20 07:53 Labs: Abnormal lab results 11/01/20 11/02/20 Range/Units 23:54 05:07 POC Glucose 114 H 160 H (70-105) mg/dL HEART Score - HEART Score Troponin: Troponin T 0.015 ng/mL (0.00-0.029) 10/14/20 13:36
[2020-11-03] MEDS: PHENYTOIN 100 MG CAPSULE.ER PO SCH ×3 (05:15→21:38)
[2020-11-03] MEDS: METOCLOPRAMIDE 10 MG/2 ML INJ IV SCH (07:27)
[2020-11-03] MEDS: LACOSAMIDE 50 MG TAB PO SCH (07:27)
[2020-11-03] MEDS: levETIRAcetam 500 MG TAB PO SCH ×2 (10:37→21:38)
[2020-11-03] MEDS: DOCUSATE SODIUM 100 MG/10 ML ORAL LIQD PO SCH ×2 (10:38→21:39)
[2020-11-03] MEDS: FAMOTIDINE 20 MG TAB PO SCH ×2 (10:38→21:38)
[2020-11-03] MEDS: HEPARIN 5,000 UNIT/1 ML VIAL SUB-Q SCH ×2 (10:38→21:38)
[2020-11-03] MEDS: LACOSAMIDE 100 MG TAB PO SCH ×2 (10:40→21:38)
--- NOTE | 2020-11-03 13:34 | Progress Note ---
Assessment and Plan Acute hypoxemic and hypercapnic respiratory failure. Acute encephalopathy (Toxic / metabolic). Status epilepticus. Hypertensive emergency at presentation. History of a brain aneurysm repair. Obesity. History of hypertension. Leukocytosis. Mild hyponatremia. Hyperglycemia. - doing better - continue bowel regimen - discharge planning ongoing concurrently - continue care as below otherwise; - continue low dose reglan - continue Vimpat & Keppra (Adjust per neurologist) - continue Seroquel for now, wean per clinical response - prn supplemental oxygen for target O2 sat's > 92% acutely - aspiration precautions - bronchodilators with pulmonary hygiene per RT - s/p empiric AB's coverage per ID rec's - accuchecks with glycemic control per SSI for target blood glucose of < 180 mg/dL; avoid hypoglycemia - avoid nephrotoxins, renally dose all medications - continue Keppra as AED - continue to avoid benzodiazepine's, reduce the possibility of delirium - prn analgesia per pain score - Maintenance of sleep-wake cycle, avoid delirium - continue to avoid benzodiazepine's, reduce the possibility of delirium - G.I. & VTE prophylaxis - PT/OT/ROM exercises - continue mobility protocols for pressure ulcer prophylaxis - Monitor hemodynamics closely - continue other care per attending / other consultants .... Re-evaluate in am & prn Subjective Date of service: 11/03/20 Principal diagnosis: Ac hypoxemic & hypercapnic resp failure; Status epilep ticus; HTNsive emerge Interval history: Patient is seen today for: Ac hypoxemic and hypercapnic resp failure; Ac. encephalopathy; Status epilepticus; HTNsive emergency; History of a brain aneurysm repair; Obesity Seen and examined at bedside; 24hour events reviewed; nursing and respiratory care staff consulted; no adverse overnight events reported to me; resting peacefully in bed; more alert; looks and feels much better; denies N/V/F/C/Chest pains or palpitations; no seizures reported Objective Vital Signs - 12hr 11/03/20 11/03/20 11/03/20 02:16 02:37 04:10 Temperature 99.0 F Pulse Rate 80 71 79 Respiratory 16 Rate Blood Pressure 172/64 Blood Pressure 172/64 [Left] O2 Sat by Pulse 97 Oximetry 11/03/20 11/03/20 11/03/20 05:04 09:44 11:44 Temperature 97.8 F Pulse Rate 76 69 Respiratory 16 Rate Blood Pressure 149/83 Blood Pressure [Left] O2 Sat by Pulse 98 96 Oximetry Constitutional: no acute distress, alert, other (elderly obese female with mildly increased respiratory effort at rest) Eyes: non-icteric ENT: oropharynx moist, other (ETT 24 cm NATIVIDAD) Neck: supple, no lymphadenopathy, no JVD Effort: mildly labored Ascultation: Bilateral: diminished breath sounds, rhonchi (scant, posterior bases) Percussion: Bilateral: not dull Cardiovascular: regular rate and rhythm Gastrointestinal: normoactive bowel sounds, soft, non-tender, non-distended, other (protuberant) Integumentary: normal Extremities: no cyanosis, no edema, pink and warm, pulses normal Neurologic: non-focal exam (grossly), pupils equal and round, motor strength normal and Psychiatric: mood appropriate, affect normal, other (sedated) CBC and BMP: 10/30/20 07:53 10/30/20 07:53 ABG, PT/INR, D-dimer: ABG ABG pH 7.393 (7.320-7.450) 10/21/20 13:43 POC ABG pCO2 34.4 mmHg (32.0-48.0) 10/21/20 13:43 ABG pCO2 46.2 mm Hg 10/19/20 04:55 POC ABG pO2 79.6 mmHg (83-108) L 10/21/20 13:43 ABG pO2 84.7 mm Hg (80.0-90.0) 10/19/20 04:55 POC ABG HCO3 20.5 10/21/20 13:43 ABG O2 Saturation 96.7 % (95.0-99.0) 10/19/20 04:55 PT/INR, D-dimer PT 14.0 Sec. (12.2-14.9) 10/14/20 13:36 INR 1.07 (0.87-1.13) 10/14/20 13:36 Abnormal lab findings: Abnormal Labs 10/14/20 10/14/20 10/14/20 13:36 13:36 14:22 WBC 14.7 H RBC Hgb Hct MCHC 35 H Lymph % (Auto) [place] % (Auto) Lymph # (Auto) [place] # (Auto) Seg Neutrophils % Seg Neuts % (Manual) 89.0 H Lymphocytes % (Manual) 4.0 L Seg Neutrophils # Seg Neutrophils # Man 13.1 H Lymphocytes # (Manual) 0.6 L ABG pH 7.298 L POC ABG pCO2 POC ABG pO2 ABG pO2 285.8 H ABG HCO3 ABG O2 Saturation 99.5 H ABG Base Excess -4.1 L ABG Hemoglobin ABG Oxyhemoglobin ABG Sodium ABG Potassium ABG Glucose Oxyhemoglobin Sodium 131 L Potassium Chloride 97.2 L Carbon Dioxide BUN Creatinine Glucose 170 H POC Glucose Calcium AST Total Protein Albumin Arterial Blood Glucose Phenytoin 10/14/20 10/15/20 10/15/20 17:09 03:35 04:33 WBC RBC Hgb Hct MCHC 36 H Lymph % (Auto) 9.6 L [place] % (Auto) 10.1 H Lymph # (Auto) 1.0 L [place] # (Auto) 1.1 H Seg Neutrophils % 79.8 H Seg Neuts % (Manual) Lymphocytes % (Manual) Seg Neutrophils # 8.4 H Seg Neutrophils # Man Lymphocytes # (Manual) ABG pH 7.536 H POC ABG pCO2 POC ABG pO2 ABG pO2 185.0 H 110.2 H ABG HCO3 ABG O2 Saturation 99.2 H ABG Base Excess ABG Hemoglobin ABG Oxyhemoglobin ABG Sodium ABG Potassium ABG Glucose Oxyhemoglobin Sodium Potassium Chloride Carbon Dioxide BUN Creatinine Glucose POC Glucose Calcium AST Total Protein Albumin Arterial Blood Glucose Phenytoin 10/15/20 10/15/20 10/16/20 04:33 13:12 00:09 WBC RBC Hgb Hct MCHC Lymph % (Auto) [place] % (Auto) Lymph # (Auto) [place] # (Auto) Seg Neutrophils % Seg Neuts % (Manual) Lymphocytes % (Manual) Seg Neutrophils # Seg Neutrophils # Man Lymphocytes # (Manual) ABG pH 7.297 L POC ABG pCO2 51.0 H POC ABG pO2 56.7 L ABG pO2 ABG HCO3 ABG O2 Saturation ABG Base Excess ABG Hemoglobin ABG Oxyhemoglobin 84.6 L ABG Sodium 134.4 L ABG Potassium ABG Glucose 118 H Oxyhemoglobin Sodium Potassium Chloride Carbon Dioxide BUN Creatinine Glucose 120 H POC Glucose 114 H Calcium AST Total Protein Albumin Arterial Blood Glucose 118 H Phenytoin 10/16/20 10/16/20 10/17/20 05:42 05:46 04:08 WBC RBC Hgb Hct MCHC Lymph % (Auto) [place] % (Auto) Lymph # (Auto) [place] # (Auto) Seg Neutrophils % Seg Neuts % (Manual) Lymphocytes % (Manual) Seg Neutrophils # Seg Neutrophils # Man Lymphocytes # (Manual) ABG pH POC ABG pCO2 POC ABG pO2 ABG pO2 96.6 H ABG HCO3 ABG O2 Saturation ABG Base Excess ABG Hemoglobin ABG Oxyhemoglobin ABG Sodium 132.6 L ABG Potassium ABG Glucose 112 H Oxyhemoglobin Sodium Potassium Chloride Carbon Dioxide BUN Creatinine Glucose POC Glucose 106 H Calcium AST Total Protein Albumin Arterial Blood Glucose 112 H Phenytoin 10/17/20 10/17/20 10/17/20 09:23 09:23 10:46 WBC 12.3 H RBC Hgb Hct MCHC Lymph % (Auto) [place] % (Auto) Lymph # (Auto) [place] # (Auto) Seg Neutrophils % Seg Neuts % (Manual) Lymphocytes % (Manual) Seg Neutrophils # Seg Neutrophils # Man Lymphocytes # (Manual) ABG pH POC ABG pCO2 POC ABG pO2 71.6 L ABG pO2 ABG HCO3 ABG O2 Saturation ABG Base Excess ABG Hemoglobin ABG Oxyhemoglobin 92.6 L ABG Sodium 134.8 L ABG Potassium ABG Glucose 105 H Oxyhemoglobin Sodium Potassium Chloride Carbon Dioxide 21 L BUN 19 H Creatinine Glucose POC Glucose Calcium AST Total Protein Albumin Arterial Blood Glucose 105 H Phenytoin 10/17/20 10/18/20 10/18/20 23:43 04:18 08:32 WBC RBC Hgb Hct MCHC Lymph % (Auto) [place] % (Auto) Lymph # (Auto) [place] # (Auto) Seg Neutrophils % Seg Neuts % (Manual) Lymphocytes % (Manual) Seg Neutrophils # Seg Neutrophils # Man Lymphocytes # (Manual) ABG pH POC ABG pCO2 POC ABG pO2 81.9 L ABG pO2 ABG HCO3 ABG O2 Saturation ABG Base Excess ABG Hemoglobin ABG Oxyhemoglobin ABG Sodium 133.3 L ABG Potassium ABG Glucose 125 H Oxyhemoglobin Sodium Potassium Chloride Carbon Dioxide BUN Creatinine Glucose POC Glucose 118 H Calcium AST Total Protein Albumin Arterial Blood Glucose 125 H Phenytoin 7.1 L 10/18/20 10/18/20 10/18/20 08:32 08:32 12:34 WBC RBC Hgb Hct MCHC Lymph % (Auto) 12.4 L [place] % (Auto) Lymph # (Auto) [place] # (Auto) Seg Neutrophils % 77.0 H Seg Neuts % (Manual) Lymphocytes % (Manual) Seg Neutrophils # Seg Neutrophils # Man Lymphocytes # (Manual) ABG pH POC ABG pCO2 POC ABG pO2 ABG pO2 ABG HCO3 ABG O2 Saturation ABG Base Excess ABG Hemoglobin ABG Oxyhemoglobin ABG Sodium ABG Potassium ABG Glucose Oxyhemoglobin Sodium 135 L Potassium Chloride Carbon Dioxide BUN 21 H Creatinine Glucose 131 H POC Glucose 121 H Calcium AST Total Protein Albumin Arterial Blood Glucose Phenytoin 10/18/20 10/18/20 10/19/20 18:12 23:47 04:55 WBC RBC Hgb Hct MCHC Lymph % (Auto) [place] % (Auto) Lymph # (Auto) [place] # (Auto) Seg Neutrophils % Seg Neuts % (Manual) Lymphocytes % (Manual) Seg Neutrophils # Seg Neutrophils # Man Lymphocytes # (Manual) ABG pH POC ABG pCO2 POC ABG pO2 ABG pO2 ABG HCO3 27.1 H ABG O2 Saturation ABG Base Excess ABG Hemoglobin 11.1 L ABG Oxyhemoglobin ABG Sodium ABG Potassium ABG Glucose Oxyhemoglobin 94.9 L Sodium Potassium Chloride Carbon Dioxide BUN Creatinine Glucose POC Glucose 133 H 142 H Calcium AST Total Protein Albumin Arterial Blood Glucose Phenytoin 10/19/20 10/19/20 10/19/20 06:02 07:59 12:35 WBC RBC Hgb Hct MCHC Lymph % (Auto) [place] % (Auto) Lymph # (Auto) [place] # (Auto) Seg Neutrophils % Seg Neuts % (Manual) Lymphocytes % (Manual) Seg Neutrophils # Seg Neutrophils # Man Lymphocytes # (Manual) ABG pH POC ABG pCO2 POC ABG pO2 ABG pO2 ABG HCO3 ABG O2 Saturation ABG Base Excess ABG Hemoglobin ABG Oxyhemoglobin ABG Sodium ABG Potassium ABG Glucose Oxyhemoglobin Sodium Potassium Chloride Carbon Dioxide BUN Creatinine Glucose 144 H POC Glucose 143 H 132 H Calcium AST Total Protein Albumin Arterial Blood Glucose Phenytoin 10/19/20 10/19/20 10/19/20 16:12 16:31 23:17 WBC RBC Hgb Hct MCHC Lymph % (Auto) [place] % (Auto) Lymph # (Auto) [place] # (Auto) Seg Neutrophils % Seg Neuts % (Manual) Lymphocytes % (Manual) Seg Neutrophils # Seg Neutrophils # Man Lymphocytes # (Manual) ABG pH 7.461 H POC ABG pCO2 POC ABG pO2 75.8 L ABG pO2 ABG HCO3 ABG O2 Saturation ABG Base Excess ABG Hemoglobin ABG Oxyhemoglobin ABG Sodium 134.0 L ABG Potassium ABG Glucose 156 H Oxyhemoglobin Sodium Potassium Chloride Carbon Dioxide BUN Creatinine Glucose POC Glucose 120 H 128 H Calcium AST Total Protein Albumin Arterial Blood Glucose 156 H Phenytoin 10/20/20 10/20/20 10/20/20 03:25 05:26 12:12 WBC RBC Hgb Hct MCHC Lymph % (Auto) [place] % (Auto) Lymph # (Auto) [place] # (Auto) Seg Neutrophils % Seg Neuts % (Manual) Lymphocytes % (Manual) Seg Neutrophils # Seg Neutrophils # Man Lymphocytes # (Manual) ABG pH POC ABG pCO2 POC ABG pO2 ABG pO2 ABG HCO3 ABG O2 Saturation ABG Base Excess ABG Hemoglobin ABG Oxyhemoglobin ABG Sodium 134.0 L ABG Potassium ABG Glucose 129 H Oxyhemoglobin Sodium Potassium Chloride Carbon Dioxide BUN Creatinine Glucose POC Glucose 125 H 136 H Calcium AST Total Protein Albumin Arterial Blood Glucose 129 H Phenytoin 10/20/20 10/21/20 10/21/20 17:58 00:09 04:14 WBC RBC Hgb Hct MCHC Lymph % (Auto) [place] % (Auto) Lymph # (Auto) [place] # (Auto) Seg Neutrophils % Seg Neuts % (Manual) Lymphocytes % (Manual) Seg Neutrophils # Seg Neutrophils # Man Lymphocytes # (Manual) ABG pH POC ABG pCO2 POC ABG pO2 ABG pO2 ABG HCO3 ABG O2 Saturation ABG Base Excess ABG Hemoglobin ABG Oxyhemoglobin ABG Sodium 134.6 L ABG Potassium 4.8 H ABG Glucose 145 H Oxyhemoglobin Sodium Potassium Chloride Carbon Dioxide BUN Creatinine Glucose POC Glucose 148 H 144 H Calcium AST Total Protein Albumin Arterial Blood Glucose 145 H Phenytoin 10/21/20 10/21/20 10/21/20 04:48 05:17 12:43 WBC RBC Hgb Hct MCHC Lymph % (Auto) [place] % (Auto) Lymph # (Auto) [place] # (Auto) Seg Neutrophils % Seg Neuts % (Manual) Lymphocytes % (Manual) Seg Neutrophils # Seg Neutrophils # Man Lymphocytes # (Manual) ABG pH POC ABG pCO2 POC ABG pO2 ABG pO2 ABG HCO3 ABG O2 Saturation ABG Base Excess ABG Hemoglobin ABG Oxyhemoglobin ABG Sodium ABG Potassium ABG Glucose Oxyhemoglobin Sodium Potassium 5.1 H Chloride Carbon Dioxide BUN 36 H Creatinine 1.3 H D Glucose 137 H POC Glucose 132 H 133 H Calcium AST Total Protein Albumin Arterial Blood Glucose Phenytoin 10/21/20 10/21/20 10/21/20 13:43 18:45 18:45 WBC 13.2 H RBC Hgb Hct MCHC Lymph % (Auto) 7.9 L [place] % (Auto) 11.1 H Lymph # (Auto) 1.1 L [place] # (Auto) 1.5 H Seg Neutrophils % 79.8 H Seg Neuts % (Manual) Lymphocytes % (Manual) Seg Neutrophils # 10.6 H Seg Neutrophils # Man Lymphocytes # (Manual) ABG pH POC ABG pCO2 POC ABG pO2 79.6 L ABG pO2 ABG HCO3 ABG O2 Saturation ABG Base Excess ABG Hemoglobin ABG Oxyhemoglobin ABG Sodium 135.8 L ABG Potassium 4.9 H ABG Glucose 155 H Oxyhemoglobin Sodium Potassium Chloride Carbon Dioxide BUN Creatinine Glucose POC Glucose Calcium AST Total Protein Albumin Arterial Blood Glucose 155 H Phenytoin 6.7 L 10/22/20 10/22/20 10/22/20 04:48 05:31 12:30 WBC RBC Hgb Hct MCHC Lymph % (Auto) [place] % (Auto) Lymph # (Auto) [place] # (Auto) Seg Neutrophils % Seg Neuts % (Manual) Lymphocytes % (Manual) Seg Neutrophils # Seg Neutrophils # Man Lymphocytes # (Manual) ABG pH POC ABG pCO2 POC ABG pO2 ABG pO2 ABG HCO3 ABG O2 Saturation ABG Base Excess ABG Hemoglobin ABG Oxyhemoglobin ABG Sodium ABG Potassium ABG Glucose Oxyhemoglobin Sodium Potassium Chloride Carbon Dioxide BUN Creatinine Glucose POC Glucose 124 H 124 H Calcium AST Total Protein Albumin Arterial Blood Glucose Phenytoin 6.6 L 10/22/20 10/23/20 10/23/20 18:04 00:09 00:16 WBC RBC Hgb Hct MCHC Lymph % (Auto) [place] % (Auto) Lymph # (Auto) [place] # (Auto) Seg Neutrophils % Seg Neuts % (Manual) Lymphocytes % (Manual) Seg Neutrophils # Seg Neutrophils # Man Lymphocytes # (Manual) ABG pH POC ABG pCO2 POC ABG pO2 ABG pO2 ABG HCO3 ABG O2 Saturation ABG Base Excess ABG Hemoglobin ABG Oxyhemoglobin ABG Sodium ABG Potassium ABG Glucose Oxyhemoglobin Sodium Potassium Chloride 109.6 H Carbon Dioxide 16 L BUN 68 H Creatinine 2.3 H D Glucose 148 H POC Glucose 130 H 149 H Calcium 8.3 L AST Total Protein Albumin Arterial Blood Glucose Phenytoin 10/23/20 10/23/20 10/23/20 05:33 08:07 11:43 WBC RBC 3.41 L Hgb 9.7 L Hct 29.8 L MCHC Lymph % (Auto) 9.9 L [place] % (Auto) 15.0 H Lymph # (Auto) 0.8 L [place] # (Auto) 1.2 H Seg Neutrophils % 72.5 H Seg Neuts % (Manual) Lymphocytes % (Manual) Seg Neutrophils # Seg Neutrophils # Man Lymphocytes # (Manual) ABG pH POC ABG pCO2 POC ABG pO2 ABG pO2 ABG HCO3 ABG O2 Saturation ABG Base Excess ABG Hemoglobin ABG Oxyhemoglobin ABG Sodium ABG Potassium ABG Glucose Oxyhemoglobin Sodium Potassium Chloride Carbon Dioxide BUN Creatinine Glucose POC Glucose 135 H 140 H Calcium AST Total Protein Albumin Arterial Blood Glucose Phenytoin 10/23/20 10/24/20 10/24/20 17:50 00:08 05:22 WBC RBC Hgb Hct MCHC Lymph % (Auto) [place] % (Auto) Lymph # (Auto) [place] # (Auto) Seg Neutrophils % Seg Neuts % (Manual) Lymphocytes % (Manual) Seg Neutrophils # Seg Neutrophils # Man Lymphocytes # (Manual) ABG pH POC ABG pCO2 POC ABG pO2 ABG pO2 ABG HCO3 ABG O2 Saturation ABG Base Excess ABG Hemoglobin ABG Oxyhemoglobin ABG Sodium ABG Potassium ABG Glucose Oxyhemoglobin Sodium Potassium Chloride Carbon Dioxide BUN Creatinine Glucose POC Glucose 121 H 131 H 132 H Calcium AST Total Protein Albumin Arterial Blood Glucose Phenytoin 10/24/20 10/24/20 10/24/20 10:10 10:10 11:23 WBC RBC 3.61 L Hgb Hct MCHC Lymph % (Auto) 8.9 L [place] % (Auto) 10.4 H Lymph # (Auto) 0.9 L [place] # (Auto) 1.0 H Seg Neutrophils % 78.3 H Seg Neuts % (Manual) Lymphocytes % (Manual) Seg Neutrophils # 7.8 H Seg Neutrophils # Man Lymphocytes # (Manual) ABG pH POC ABG pCO2 POC ABG pO2 ABG pO2 ABG HCO3 ABG O2 Saturation ABG Base Excess ABG Hemoglobin ABG Oxyhemoglobin ABG Sodium ABG Potassium ABG Glucose Oxyhemoglobin Sodium 146 H Potassium Chloride 115.8 H Carbon Dioxide BUN 40 H Creatinine Glucose 139 H POC Glucose 121 H Calcium AST Total Protein 6.2 L Albumin 2.9 L Arterial Blood Glucose Phenytoin 10/24/20 10/29/20 10/29/20 23:45 01:09 06:01 WBC RBC Hgb Hct MCHC Lymph % (Auto) [place] % (Auto) Lymph # (Auto) [place] # (Auto) Seg Neutrophils % Seg Neuts % (Manual) Lymphocytes % (Manual) Seg Neutrophils # Seg Neutrophils # Man Lymphocytes # (Manual) ABG pH POC ABG pCO2 POC ABG pO2 ABG pO2 ABG HCO3 ABG O2 Saturation ABG Base Excess ABG Hemoglobin ABG Oxyhemoglobin ABG Sodium ABG Potassium ABG Glucose Oxyhemoglobin Sodium Potassium Chloride Carbon Dioxide BUN Creatinine Glucose POC Glucose 112 H 128 H 120 H Calcium AST Total Protein Albumin Arterial Blood Glucose Phenytoin 10/29/20 10/29/20 10/29/20 11:22 18:05 23:38 WBC RBC Hgb Hct MCHC Lymph % (Auto) [place] % (Auto) Lymph # (Auto) [place] # (Auto) Seg Neutrophils % Seg Neuts % (Manual) Lymphocytes % (Manual) Seg Neutrophils # Seg Neutrophils # Man Lymphocytes # (Manual) ABG pH POC ABG pCO2 POC ABG pO2 ABG pO2 ABG HCO3 ABG O2 Saturation ABG Base Excess ABG Hemoglobin ABG Oxyhemoglobin ABG Sodium ABG Potassium ABG Glucose Oxyhemoglobin Sodium Potassium Chloride Carbon Dioxide BUN Creatinine Glucose POC Glucose 143 H 152 H 111 H Calcium AST Total Protein Albumin Arterial Blood Glucose Phenytoin 10/30/20 10/30/20 10/30/20 06:20 07:53 07:53 WBC RBC 3.23 L Hgb 9.2 L Hct 26.9 L MCHC Lymph % (Auto) 12.4 L [place] % (Auto) Lymph # (Auto) [place] # (Auto) Seg Neutrophils % 76.0 H Seg Neuts % (Manual) Lymphocytes % (Manual) Seg Neutrophils # Seg Neutrophils # Man Lymphocytes # (Manual) ABG pH POC ABG pCO2 POC ABG pO2 ABG pO2 ABG HCO3 ABG O2 Saturation ABG Base Excess ABG Hemoglobin ABG Oxyhemoglobin ABG Sodium ABG Potassium ABG Glucose Oxyhemoglobin Sodium Potassium 3.0 L Chloride Carbon Dioxide BUN 6 L Creatinine Glucose 107 H POC Glucose 116 H Calcium AST 43 H Total Protein 5.9 L Albumin 2.7 L Arterial Blood Glucose Phenytoin 10/30/20 10/30/20 10/30/20 12:08 16:05 21:35 WBC RBC Hgb Hct MCHC Lymph % (Auto) [place] % (Auto) Lymph # (Auto) [place] # (Auto) Seg Neutrophils % Seg Neuts % (Manual) Lymphocytes % (Manual) Seg Neutrophils # Seg Neutrophils # Man Lymphocytes # (Manual) ABG pH POC ABG pCO2 POC ABG pO2 ABG pO2 ABG HCO3 ABG O2 Saturation ABG Base Excess ABG Hemoglobin ABG Oxyhemoglobin ABG Sodium ABG Potassium ABG Glucose Oxyhemoglobin Sodium Potassium Chloride Carbon Dioxide BUN Creatinine Glucose POC Glucose 115 H 107 H 114 H Calcium AST Total Protein Albumin Arterial Blood Glucose Phenytoin 10/31/20 10/31/20 11/01/20 04:58 11:40 11:28 WBC RBC Hgb Hct MCHC Lymph % (Auto) [place] % (Auto) Lymph # (Auto) [place] # (Auto) Seg Neutrophils % Seg Neuts % (Manual) Lymphocytes % (Manual) Seg Neutrophils # Seg Neutrophils # Man Lymphocytes # (Manual) ABG pH POC ABG pCO2 POC ABG pO2 ABG pO2 ABG HCO3 ABG O2 Saturation ABG Base Excess ABG Hemoglobin ABG Oxyhemoglobin ABG Sodium ABG Potassium ABG Glucose Oxyhemoglobin Sodium Potassium Chloride Carbon Dioxide BUN Creatinine Glucose POC Glucose 119 H 159 H Calcium AST Total Protein Albumin Arterial Blood Glucose Phenytoin 4.4 L 11/01/20 11/02/20 23:54 05:07 WBC RBC Hgb Hct MCHC Lymph % (Auto) [place] % (Auto) Lymph # (Auto) [place] # (Auto) Seg Neutrophils % Seg Neuts % (Manual) Lymphocytes % (Manual) Seg Neutrophils # Seg Neutrophils # Man Lymphocytes # (Manual) ABG pH POC ABG pCO2 POC ABG pO2 ABG pO2 ABG HCO3 ABG O2 Saturation ABG Base Excess ABG Hemoglobin ABG Oxyhemoglobin ABG Sodium ABG Potassium ABG Glucose Oxyhemoglobin Sodium Potassium Chloride Carbon Dioxide BUN Creatinine Glucose POC Glucose 114 H 160 H Calcium AST Total Protein Albumin Arterial Blood Glucose Phenytoin Allied health notes reviewed: nursing
[2020-11-03] MEDS: POLYETHYLENE GLYCOL 3350 17 GM POWDER PO SCH (21:38)
[2020-11-03] MEDS: QUEtiapine 100 MG TAB PO SCH (21:38)
[2020-11-04] MEDS: PHENYTOIN 100 MG CAPSULE.ER PO SCH ×2 (05:28→13:21)
--- NOTE | 2020-11-04 08:07 | Progress Note ---
Assessment and Plan (1) Acute respiratory failure Current Visit: Yes Status: Acute Qualifiers: Respiratory failure complication: hypoxia Qualified Code(s): J96.01 - Acute respiratory failure with hypoxia Plan to address problem: And extubated and now stable Talking appropriately (2) Status epilepticus Current Visit: Yes Status: Acute Plan to address problem: Seizures resolved (3) Hypertensive emergency Current Visit: Yes Status: Acute Plan to address problem: Blood pressure controlled (4) Acute encephalopathy Current Visit: Yes Status: Acute Plan to address problem: CT head, neuro check, seizure precautions, aspiration precautions, (5) Leukocytosis Current Visit: Yes Status: Acute Plan to address problem: Resolved (6) DVT prophylaxis Current Visit: Yes Status: Acute Plan to address problem: SCD to bilateral lower extremities while in bed, prophylactic anticoagulation (7) Discharge planning issues Current Visit: Yes Status: Acute Plan to address problem: Patient to go to intermediate facility for subacute rehab Patient is severely debilitated Patient lives alone and cannot take care of herself Subjective Date of service: 11/03/20 Principal diagnosis: Ac hypoxemic & hypercapnic resp failure; Status epilepticus; HTNsive emerge Interval history: 65 YO Female with Obesity, HTN, presents to ED for evaluation. Patient is intubated and on ventilatory support at the time of my evaluation and is unable to provide history. Patient history is taken from EMS staff, ED staff. As per staff the patient was found down and unresponsive by her neighbor. Patient neighbor describe seizure-like activity. EMS was notified and upon arrival the patient was found to be in distress and actively seizing. Patient treated with 2 mg of Ativan which terminated the seizures. The patient was subsequently transported to [facility] for further evaluation and care of the aforementioned symptoms. Patient was seen and evaluated in the emergency department. All lab and imaging studies reviewed. Patient found to have symptoms consistent with status epilepticus which was evidenced by recurrent seizures in the emergency department with concomitant decrease in pulse oximetry to 84% on room air. The patient was also found to have hypertensive emergency with a blood pressure of 223/143. The patient was deemed unable to protect her airway and was intubated for airway protection. Patient also found to have acute encephalopathy. P atient admitted to ICU due to increased risk of decompensation. Critical care team consulted in ED. No prior admission for review. No medication listed at time of admission for reconciliation. Advanced care planning conducted in ED. Patient severely debilitated Needs intermediate facility for subacute rehab Patient lives alone and cannot take care of herself Objective - Constitutional Vitals: Vital Signs - 12hr 11/03/20 11/03/20 11/03/20 20:32 22:00 23:55 Temperature 99.0 F 98.5 F Pulse Rate 76 77 Respiratory 20 20 18 Rate Blood Pressure 165/81 127/70 O2 Sat by Pulse 98 95 Oximetry 11/04/20 11/04/20 04:00 04:30 Temperature 98.8 F Pulse Rate 70 76 Respiratory 18 Rate Blood Pressure 152/78 O2 Sat by Pulse 94 Oximetry General appearance: Present: no acute distress, well-nourished - EENT Eyes: PERRL, EOM intact ENT: hearing intact, clear oral mucosa Ears: bilateral: normal - Neck Neck: supple, normal ROM - Respiratory Respiratory effort: normal Respiratory: bilateral: CTA - Breasts Breasts: normal - Cardiovascular Heart rate: 78 Rhythm: regular Heart Sounds: Present: S1 & S2. Absent: gallop, rub Extremities: pulses intact, No edema, normal color, Full ROM - Gastrointestinal General gastrointestinal: Present: deferred, soft, non-tender, non-distended, normal bowel sounds - Genitourinary Female genitourinary: normal - Integumentary Integumentary: clear, warm, dry - Musculoskeletal Musculoskeletal: 1, strength equal bilaterally - Neurologic Neurologic: moves all extremities - Psychiatric Psychiatric: memory intact, appropriate mood/affect, intact judgment & insight - Labs CBC & Chem 7: 10/30/20 07:53 10/30/20 07:53 HEART Score - HEART Score Troponin: Troponin T 0.015 ng/mL (0.00-0.029) 10/14/20 13:36
[2020-11-04] MEDS: HEPARIN 5,000 UNIT/1 ML VIAL SUB-Q SCH (09:49)
[2020-11-04] MEDS: levETIRAcetam 500 MG TAB PO SCH (09:51)
[2020-11-04] MEDS: FAMOTIDINE 20 MG TAB PO SCH (09:51)
[2020-11-04] MEDS: LACOSAMIDE 100 MG TAB PO SCH (09:51)
[2020-11-04] MEDS: DOCUSATE SODIUM 100 MG/10 ML ORAL LIQD PO SCH ×2 (09:51→09:54)
--- NOTE | 2020-11-04 15:02 | Progress Note ---
Assessment and Plan Acute hypoxemic and hypercapnic respiratory failure. Acute encephalopathy (Toxic / metabolic). Status epilepticus. Hypertensive emergency at presentation. History of a brain aneurysm repair. Obesity. History of hypertension. Leukocytosis. Mild hyponatremia. Hyperglycemia. - doing better - continue bowel regimen - discharge planning ongoing concurrently - continue care as below otherwise; - continue low dose reglan - continue Vimpat & Keppra (Adjust per neurologist) - continue Seroquel for now, wean per clinical response - prn supplemental oxygen for target O2 sat's > 92% acutely - aspiration precautions - bronchodilators with pulmonary hygiene per RT - s/p empiric AB's coverage per ID rec's - accuchecks with glycemic control per SSI for target blood glucose of < 180 mg/dL; avoid hypoglycemia - avoid nephrotoxins, renally dose all medications - continue Keppra as AED - continue to avoid benzodiazepine's, reduce the possibility of delirium - prn analgesia per pain score - Maintenance of sleep-wake cycle, avoid delirium - continue to avoid benzodiazepine's, reduce the possibility of delirium - G.I. & VTE prophylaxis - PT/OT/ROM exercises - continue mobility protocols for pressure ulcer prophylaxis - Monitor hemodynamics closely - continue other care per attending / other consultants .... Re-evaluate in am & prn Subjective Date of service: 11/04/20 Principal diagnosis: Ac hypoxemic & hypercapnic resp failure; Status epile pticus; HTNsive emerge Interval history: Patient is seen today for: Ac hypoxemic and hypercapnic resp failure; Ac. encephalopathy; Status epilepticus; HTNsive emergency; History of a brain aneurysm repair; Obesity Seen and examined at bedside; 24hour events reviewed; nursing and respiratory care staff consulted; no adverse overnight events reported to me; resting peacefully in bed; Objective Vital Signs - 12hr 11/04/20 11/04/20 11/04/20 04:00 04:30 08:53 Temperature 98.8 F 98.4 F Pulse Rate 70 76 72 Respiratory 18 20 Rate Blood Pressure 152/78 149/83 O2 Sat by Pulse 94 97 Oximetry 11/04/20 11:52 Temperature 98.1 F Pulse Rate 75 Respiratory 20 Rate Blood Pressure 145/79 O2 Sat by Pulse 95 Oximetry Constitutional: no acute distress, alert, other (elderly obese female with mildly increased respiratory effort at rest) Eyes: non-icteric ENT: oropharynx moist, other (ETT 24 cm [place]) Neck: supple, no lymphadenopathy, no JVD Effort: mildly labored Ascultation: Bilateral: diminished breath sounds, rhonchi (scant, posterior bases) Percussion: Bilateral: not dull Cardiovascular: regular rate and rhythm Gastrointestinal: normoactive bowel sounds, soft, non-tender, non-distended, other (protuberant) Integumentary: normal Extremities: no cyanosis, no edema, pink and warm, pulses normal Neurologic: non-focal exam (grossly), pupils equal and round, motor strength normal and Psychiatric: mood appropriate, affect normal, other (sedated) CBC and BMP: 10/30/20 07:53 10/30/20 07:53 ABG, PT/INR, D-dimer: ABG ABG pH 7.393 (7.320-7.450) 10/21/20 13:43 POC ABG pCO2 34.4 mmHg (32.0-48.0) 10/21/20 13:43 ABG pCO2 46.2 mm Hg 10/19/20 04:55 POC ABG pO2 79.6 mmHg (83-108) L 10/21/20 13:43 ABG pO2 84.7 mm Hg (80.0-90.0) 10/19/20 04:55 POC ABG HCO3 20.5 10/21/20 13:43 ABG O2 Saturation 96.7 % (95.0-99.0) 10/19/20 04:55 PT/INR, D-dimer PT 14.0 Sec. (12.2-14.9) 10/14/20 13:36 INR 1.07 (0.87-1.13) 10/14/20 13:36 Abnormal lab findings: Abnormal Labs 10/14/20 10/14/20 10/14/20 13:36 13:36 14:22 WBC 14.7 H RBC Hgb Hct MCHC 35 H Lymph % (Auto) [place] % (Auto) Lymph # (Auto) [place] # (Auto) Seg Neutrophils % Seg Neuts % (Manual) 89.0 H Lymphocytes % (Manual) 4.0 L Seg Neutrophils # Seg Neutrophils # Man 13.1 H Lymphocytes # (Manual) 0.6 L ABG pH 7.298 L POC ABG pCO2 POC ABG pO2 ABG pO2 285.8 H ABG HCO3 ABG O2 Saturation 99.5 H ABG Base Excess -4.1 L ABG Hemoglobin ABG Oxyhemoglobin ABG Sodium ABG Potassium ABG Glucose Oxyhemoglobin Sodium 131 L Potassium Chloride 97.2 L Carbon Dioxide BUN Creatinine Glucose 170 H POC Glucose Calcium AST Total Protein Albumin Arterial Blood Glucose Phenytoin 10/14/20 10/15/20 10/15/20 17:09 03:35 04:33 WBC RBC Hgb Hct MCHC 36 H Lymph % (Auto) 9.6 L [place] % (Auto) 10.1 H Lymph # (Auto) 1.0 L [place] # (Auto) 1.1 H Seg Neutrophils % 79.8 H Seg Neuts % (Manual) Lymphocytes % (Manual) Seg Neutrophils # 8.4 H Seg Neutrophils # Man Lymphocytes # (Manual) ABG pH 7.536 H POC ABG pCO2 POC ABG pO2 ABG pO2 185.0 H 110.2 H ABG HCO3 ABG O2 Saturation 99.2 H ABG Base Excess ABG Hemoglobin ABG Oxyhemoglobin ABG Sodium ABG Potassium ABG Glucose Oxyhemoglobin Sodium Potassium Chloride Carbon Dioxide BUN Creatinine Glucose POC Glucose Calcium AST Total Protein Albumin Arterial Blood Glucose Phenytoin 10/15/20 10/15/20 10/16/20 04:33 13:12 00:09 WBC RBC Hgb Hct MCHC Lymph % (Auto) [place] % (Auto) Lymph # (Auto) [place] # (Auto) Seg Neutrophils % Seg Neuts % (Manual) Lymphocytes % (Manual) Seg Neutrophils # Seg Neutrophils # Man Lymphocytes # (Manual) ABG pH 7.297 L POC ABG pCO2 51.0 H POC ABG pO2 56.7 L ABG pO2 ABG HCO3 ABG O2 Saturation ABG Base Excess ABG Hemoglobin ABG Oxyhemoglobin 84.6 L ABG Sodium 134.4 L ABG Potassium ABG Glucose 118 H Oxyhemoglobin Sodium Potassium Chloride Carbon Dioxide BUN Creatinine Glucose 120 H POC Glucose 114 H Calcium AST Total Protein Albumin Arterial Blood Glucose 118 H Phenytoin 10/16/20 10/16/20 10/17/20 05:42 05:46 04:08 WBC RBC Hgb Hct MCHC Lymph % (Auto) [place] % (Auto) Lymph # (Auto) [place] # (Auto) Seg Neutrophils % Seg Neuts % (Manual) Lymphocytes % (Manual) Seg Neutrophils # Seg Neutrophils # Man Lymphocytes # (Manual) ABG pH POC ABG pCO2 POC ABG pO2 ABG pO2 96.6 H ABG HCO3 ABG O2 Saturation ABG Base Excess ABG Hemoglobin ABG Oxyhemoglobin ABG Sodium 132.6 L ABG Potassium ABG Glucose 112 H Oxyhemoglobin Sodium Potassium Chloride Carbon Dioxide BUN Creatinine Glucose POC Glucose 106 H Calcium AST Total Protein Albumin Arterial Blood Glucose 112 H Phenytoin 10/17/20 10/17/20 10/17/20 09:23 09:23 10:46 WBC 12.3 H RBC Hgb Hct MCHC Lymph % (Auto) [place] % (Auto) Lymph # (Auto) [place] # (Auto) Seg Neutrophils % Seg Neuts % (Manual) Lymphocytes % (Manual) Seg Neutrophils # Seg Neutrophils # Man Lymphocytes # (Manual) ABG pH POC ABG pCO2 POC ABG pO2 71.6 L ABG pO2 ABG HCO3 ABG O2 Saturation ABG Base Excess ABG Hemoglobin ABG Oxyhemoglobin 92.6 L ABG Sodium 134.8 L ABG Potassium ABG Glucose 105 H Oxyhemoglobin Sodium Potassium Chloride Carbon Dioxide 21 L BUN 19 H Creatinine Glucose POC Glucose Calcium AST Total Protein Albumin Arterial Blood Glucose 105 H Phenytoin 10/17/20 10/18/20 10/18/20 23:43 04:18 08:32 WBC RBC Hgb Hct MCHC Lymph % (Auto) [place] % (Auto) Lymph # (Auto) [place] # (Auto) Seg Neutrophils % Seg Neuts % (Manual) Lymphocytes % (Manual) Seg Neutrophils # Seg Neutrophils # Man Lymphocytes # (Manual) ABG pH POC ABG pCO2 POC ABG pO2 81.9 L ABG pO2 ABG HCO3 ABG O2 Saturation ABG Base Excess ABG Hemoglobin ABG Oxyhemoglobin ABG Sodium 133.3 L ABG Potassium ABG Glucose 125 H Oxyhemoglobin Sodium Potassium Chloride Carbon Dioxide BUN Creatinine Glucose POC Glucose 118 H Calcium AST Total Protein Albumin Arterial Blood Glucose 125 H Phenytoin 7.1 L 10/18/20 10/18/20 10/18/20 08:32 08:32 12:34 WBC RBC Hgb Hct MCHC Lymph % (Auto) 12.4 L [place] % (Auto) Lymph # (Auto) [place] # (Auto) Seg Neutrophils % 77.0 H Seg Neuts % (Manual) Lymphocytes % (Manual) Seg Neutrophils # Seg Neutrophils # Man Lymphocytes # (Manual) ABG pH POC ABG pCO2 POC ABG pO2 ABG pO2 ABG HCO3 ABG O2 Saturation ABG Base Excess ABG Hemoglobin ABG Oxyhemoglobin ABG Sodium ABG Potassium ABG Glucose Oxyhemoglobin Sodium 135 L Potassium Chloride Carbon Dioxide BUN 21 H Creatinine Glucose 131 H POC Glucose 121 H Calcium AST Total Protein Albumin Arterial Blood Glucose Phenytoin 10/18/20 10/18/20 10/19/20 18:12 23:47 04:55 WBC RBC Hgb Hct MCHC Lymph % (Auto) [place] % (Auto) Lymph # (Auto) [place] # (Auto) Seg Neutrophils % Seg Neuts % (Manual) Lymphocytes % (Manual) Seg Neutrophils # Seg Neutrophils # Man Lymphocytes # (Manual) ABG pH POC ABG pCO2 POC ABG pO2 ABG pO2 ABG HCO3 27.1 H ABG O2 Saturation ABG Base Excess ABG Hemoglobin 11.1 L ABG Oxyhemoglobin ABG Sodium ABG Potassium ABG Glucose Oxyhemoglobin 94.9 L Sodium Potassium Chloride Carbon Dioxide BUN Creatinine Glucose POC Glucose 133 H 142 H Calcium AST Total Protein Albumin Arterial Blood Glucose Phenytoin 10/19/20 10/19/20 10/19/20 06:02 07:59 12:35 WBC RBC Hgb Hct MCHC Lymph % (Auto) [place] % (Auto) Lymph # (Auto) [place] # (Auto) Seg Neutrophils % Seg Neuts % (Manual) Lymphocytes % (Manual) Seg Neutrophils # Seg Neutrophils # Man Lymphocytes # (Manual) ABG pH POC ABG pCO2 POC ABG pO2 ABG pO2 ABG HCO3 ABG O2 Saturation ABG Base Excess ABG Hemoglobin ABG Oxyhemoglobin ABG Sodium ABG Potassium ABG Glucose Oxyhemoglobin Sodium Potassium Chloride Carbon Dioxide BUN Creatinine Glucose 144 H POC Glucose 143 H 132 H Calcium AST Total Protein Albumin Arterial Blood Glucose Phenytoin 10/19/20 10/19/20 10/19/20 16:12 16:31 23:17 WBC RBC Hgb Hct MCHC Lymph % (Auto) [place] % (Auto) Lymph # (Auto) [place] # (Auto) Seg Neutrophils % Seg Neuts % (Manual) Lymphocytes % (Manual) Seg Neutrophils # Seg Neutrophils # Man Lymphocytes # (Manual) ABG pH 7.461 H POC ABG pCO2 POC ABG pO2 75.8 L ABG pO2 ABG HCO3 ABG O2 Saturation ABG Base Excess ABG Hemoglobin ABG Oxyhemoglobin ABG Sodium 134.0 L ABG Potassium ABG Glucose 156 H Oxyhemoglobin Sodium Potassium Chloride Carbon Dioxide BUN Creatinine Glucose POC Glucose 120 H 128 H Calcium AST Total Protein Albumin Arterial Blood Glucose 156 H Phenytoin 10/20/20 10/20/20 10/20/20 03:25 05:26 12:12 WBC RBC Hgb Hct MCHC Lymph % (Auto) [place] % (Auto) Lymph # (Auto) [place] # (Auto) Seg Neutrophils % Seg Neuts % (Manual) Lymphocytes % (Manual) Seg Neutrophils # Seg Neutrophils # Man Lymphocytes # (Manual) ABG pH POC ABG pCO2 POC ABG pO2 ABG pO2 ABG HCO3 ABG O2 Saturation ABG Base Excess ABG Hemoglobin ABG Oxyhemoglobin ABG Sodium 134.0 L ABG Potassium ABG Glucose 129 H Oxyhemoglobin Sodium Potassium Chloride Carbon Dioxide BUN Creatinine Glucose POC Glucose 125 H 136 H Calcium AST Total Protein Albumin Arterial Blood Glucose 129 H Phenytoin 10/20/20 10/21/20 10/21/20 17:58 00:09 04:14 WBC RBC Hgb Hct MCHC Lymph % (Auto) [place] % (Auto) Lymph # (Auto) [place] # (Auto) Seg Neutrophils % Seg Neuts % (Manual) Lymphocytes % (Manual) Seg Neutrophils # Seg Neutrophils # Man Lymphocytes # (Manual) ABG pH POC ABG pCO2 POC ABG pO2 ABG pO2 ABG HCO3 ABG O2 Saturation ABG Base Excess ABG Hemoglobin ABG Oxyhemoglobin ABG Sodium 134.6 L ABG Potassium 4.8 H ABG Glucose 145 H Oxyhemoglobin Sodium Potassium Chloride Carbon Dioxide BUN Creatinine Glucose POC Glucose 148 H 144 H Calcium AST Total Protein Albumin Arterial Blood Glucose 145 H Phenytoin 10/21/20 10/21/20 10/21/20 04:48 05:17 12:43 WBC RBC Hgb Hct MCHC Lymph % (Auto) [place] % (Auto) Lymph # (Auto) [place] # (Auto) Seg Neutrophils % Seg Neuts % (Manual) Lymphocytes % (Manual) Seg Neutrophils # Seg Neutrophils # Man Lymphocytes # (Manual) ABG pH POC ABG pCO2 POC ABG pO2 ABG pO2 ABG HCO3 ABG O2 Saturation ABG Base Excess ABG Hemoglobin ABG Oxyhemoglobin ABG Sodium ABG Potassium ABG Glucose Oxyhemoglobin Sodium Potassium 5.1 H Chloride Carbon Dioxide BUN 36 H Creatinine 1.3 H D Glucose 137 H POC Glucose 132 H 133 H Calcium AST Total Protein Albumin Arterial Blood Glucose Phenytoin 10/21/20 10/21/20 10/21/20 13:43 18:45 18:45 WBC 13.2 H RBC Hgb Hct MCHC Lymph % (Auto) 7.9 L [place] % (Auto) 11.1 H Lymph # (Auto) 1.1 L [place] # (Auto) 1.5 H Seg Neutrophils % 79.8 H Seg Neuts % (Manual) Lymphocytes % (Manual) Seg Neutrophils # 10.6 H Seg Neutrophils # Man Lymphocytes # (Manual) ABG pH POC ABG pCO2 POC ABG pO2 79.6 L ABG pO2 ABG HCO3 ABG O2 Saturation ABG Base Excess ABG Hemoglobin ABG Oxyhemoglobin ABG Sodium 135.8 L ABG Potassium 4.9 H ABG Glucose 155 H Oxyhemoglobin Sodium Potassium Chloride Carbon Dioxide BUN Creatinine Glucose POC Glucose Calcium AST Total Protein Albumin Arterial Blood Glucose 155 H Phenytoin 6.7 L 10/22/20 10/22/20 10/22/20 04:48 05:31 12:30 WBC RBC Hgb Hct MCHC Lymph % (Auto) [place] % (Auto) Lymph # (Auto) [place] # (Auto) Seg Neutrophils % Seg Neuts % (Manual) Lymphocytes % (Manual) Seg Neutrophils # Seg Neutrophils # Man Lymphocytes # (Manual) ABG pH POC ABG pCO2 POC ABG pO2 ABG pO2 ABG HCO3 ABG O2 Saturation ABG Base Excess ABG Hemoglobin ABG Oxyhemoglobin ABG Sodium ABG Potassium ABG Glucose Oxyhemoglobin Sodium Potassium Chloride Carbon Dioxide BUN Creatinine Glucose POC Glucose 124 H 124 H Calcium AST Total Protein Albumin Arterial Blood Glucose Phenytoin 6.6 L 10/22/20 10/23/20 10/23/20 18:04 00:09 00:16 WBC RBC Hgb Hct MCHC Lymph % (Auto) [place] % (Auto) Lymph # (Auto) [place] # (Auto) Seg Neutrophils % Seg Neuts % (Manual) Lymphocytes % (Manual) Seg Neutrophils # Seg Neutrophils # Man Lymphocytes # (Manual) ABG pH POC ABG pCO2 POC ABG pO2 ABG pO2 ABG HCO3 ABG O2 Saturation ABG Base Excess ABG Hemoglobin ABG Oxyhemoglobin ABG Sodium ABG Potassium ABG Glucose Oxyhemoglobin Sodium Potassium Chloride 109.6 H Carbon Dioxide 16 L BUN 68 H Creatinine 2.3 H D Glucose 148 H POC Glucose 130 H 149 H Calcium 8.3 L AST Total Protein Albumin Arterial Blood Glucose Phenytoin 10/23/20 10/23/20 10/23/20 05:33 08:07 11:43 WBC RBC 3.41 L Hgb 9.7 L Hct 29.8 L MCHC Lymph % (Auto) 9.9 L [place] % (Auto) 15.0 H Lymph # (Auto) 0.8 L [place] # (Auto) 1.2 H Seg Neutrophils % 72.5 H Seg Neuts % (Manual) Lymphocytes % (Manual) Seg Neutrophils # Seg Neutrophils # Man Lymphocytes # (Manual) ABG pH POC ABG pCO2 POC ABG pO2 ABG pO2 ABG HCO3 ABG O2 Saturation ABG Base Excess ABG Hemoglobin ABG Oxyhemoglobin ABG Sodium ABG Potassium ABG Glucose Oxyhemoglobin Sodium Potassium Chloride Carbon Dioxide BUN Creatinine Glucose POC Glucose 135 H 140 H Calcium AST Total Protein Albumin Arterial Blood Glucose Phenytoin 10/23/20 10/24/20 10/24/20 17:50 00:08 05:22 WBC RBC Hgb Hct MCHC Lymph % (Auto) [place] % (Auto) Lymph # (Auto) [place] # (Auto) Seg Neutrophils % Seg Neuts % (Manual) Lymphocytes % (Manual) Seg Neutrophils # Seg Neutrophils # Man Lymphocytes # (Manual) ABG pH POC ABG pCO2 POC ABG pO2 ABG pO2 ABG HCO3 ABG O2 Saturation ABG Base Excess ABG Hemoglobin ABG Oxyhemoglobin ABG Sodium ABG Potassium ABG Glucose Oxyhemoglobin Sodium Potassium Chloride Carbon Dioxide BUN Creatinine Glucose POC Glucose 121 H 131 H 132 H Calcium AST Total Protein Albumin Arterial Blood Glucose Phenytoin 10/24/20 10/24/20 10/24/20 10:10 10:10 11:23 WBC RBC 3.61 L Hgb Hct MCHC Lymph % (Auto) 8.9 L [place] % (Auto) 10.4 H Lymph # (Auto) 0.9 L [place] # (Auto) 1.0 H Seg Neutrophils % 78.3 H Seg Neuts % (Manual) Lymphocytes % (Manual) Seg Neutrophils # 7.8 H Seg Neutrophils # Man Lymphocytes # (Manual) ABG pH POC ABG pCO2 POC ABG pO2 ABG pO2 ABG HCO3 ABG O2 Saturation ABG Base Excess ABG Hemoglobin ABG Oxyhemoglobin ABG Sodium ABG Potassium ABG Glucose Oxyhemoglobin Sodium 146 H Potassium Chloride 115.8 H Carbon Dioxide BUN 40 H Creatinine Glucose 139 H POC Glucose 121 H Calcium AST Total Protein 6.2 L Albumin 2.9 L Arterial Blood Glucose Phenytoin 10/24/20 10/29/20 10/29/20 23:45 01:09 06:01 WBC RBC Hgb Hct MCHC Lymph % (Auto) [place] % (Auto) Lymph # (Auto) [place] # (Auto) Seg Neutrophils % Seg Neuts % (Manual) Lymphocytes % (Manual) Seg Neutrophils # Seg Neutrophils # Man Lymphocytes # (Manual) ABG pH POC ABG pCO2 POC ABG pO2 ABG pO2 ABG HCO3 ABG O2 Saturation ABG Base Excess ABG Hemoglobin ABG Oxyhemoglobin ABG Sodium ABG Potassium ABG Glucose Oxyhemoglobin Sodium Potassium Chloride Carbon Dioxide BUN Creatinine Glucose POC Glucose 112 H 128 H 120 H Calcium AST Total Protein Albumin Arterial Blood Glucose Phenytoin 10/29/20 10/29/20 10/29/20 11:22 18:05 23:38 WBC RBC Hgb Hct MCHC Lymph % (Auto) [place] % (Auto) Lymph # (Auto) [place] # (Auto) Seg Neutrophils % Seg Neuts % (Manual) Lymphocytes % (Manual) Seg Neutrophils # Seg Neutrophils # Man Lymphocytes # (Manual) ABG pH POC ABG pCO2 POC ABG pO2 ABG pO2 ABG HCO3 ABG O2 Saturation ABG Base Excess ABG Hemoglobin ABG Oxyhemoglobin ABG Sodium ABG Potassium ABG Glucose Oxyhemoglobin Sodium Potassium Chloride Carbon Dioxide BUN Creatinine Glucose POC Glucose 143 H 152 H 111 H Calcium AST Total Protein Albumin Arterial Blood Glucose Phenytoin 10/30/20 10/30/20 10/30/20 06:20 07:53 07:53 WBC RBC 3.23 L Hgb 9.2 L Hct 26.9 L MCHC Lymph % (Auto) 12.4 L [place] % (Auto) Lymph # (Auto) [place] # (Auto) Seg Neutrophils % 76.0 H Seg Neuts % (Manual) Lymphocytes % (Manual) Seg Neutrophils # Seg Neutrophils # Man Lymphocytes # (Manual) ABG pH POC ABG pCO2 POC ABG pO2 ABG pO2 ABG HCO3 ABG O2 Saturation ABG Base Excess ABG Hemoglobin ABG Oxyhemoglobin ABG Sodium ABG Potassium ABG Glucose Oxyhemoglobin Sodium Potassium 3.0 L Chloride Carbon Dioxide BUN 6 L Creatinine Glucose 107 H POC Glucose 116 H Calcium AST 43 H Total Protein 5.9 L Albumin 2.7 L Arterial Blood Glucose Phenytoin 10/30/20 10/30/20 10/30/20 12:08 16:05 21:35 WBC RBC Hgb Hct MCHC Lymph % (Auto) [place] % (Auto) Lymph # (Auto) [place] # (Auto) Seg Neutrophils % Seg Neuts % (Manual) Lymphocytes % (Manual) Seg Neutrophils # Seg Neutrophils # Man Lymphocytes # (Manual) ABG pH POC ABG pCO2 POC ABG pO2 ABG pO2 ABG HCO3 ABG O2 Saturation ABG Base Excess ABG Hemoglobin ABG Oxyhemoglobin ABG Sodium ABG Potassium ABG Glucose Oxyhemoglobin Sodium Potassium Chloride Carbon Dioxide BUN Creatinine Glucose POC Glucose 115 H 107 H 114 H Calcium AST Total Protein Albumin Arterial Blood Glucose Phenytoin 10/31/20 10/31/20 11/01/20 04:58 11:40 11:28 WBC RBC Hgb Hct MCHC Lymph % (Auto) [place] % (Auto) Lymph # (Auto) [place] # (Auto) Seg Neutrophils % Seg Neuts % (Manual) Lymphocytes % (Manual) Seg Neutrophils # Seg Neutrophils # Man Lymphocytes # (Manual) ABG pH POC ABG pCO2 POC ABG pO2 ABG pO2 ABG HCO3 ABG O2 Saturation ABG Base Excess ABG Hemoglobin ABG Oxyhemoglobin ABG Sodium ABG Potassium ABG Glucose Oxyhemoglobin Sodium Potassium Chloride Carbon Dioxide BUN Creatinine Glucose POC Glucose 119 H 159 H Calcium AST Total Protein Albumin Arterial Blood Glucose Phenytoin 4.4 L 11/01/20 11/02/20 23:54 05:07 WBC RBC Hgb Hct MCHC Lymph % (Auto) [place] % (Auto) Lymph # (Auto) [place] # (Auto) Seg Neutrophils % Seg Neuts % (Manual) Lymphocytes % (Manual) Seg Neutrophils # Seg Neutrophils # Man Lymphocytes # (Manual) ABG pH POC ABG pCO2 POC ABG pO2 ABG pO2 ABG HCO3 ABG O2 Saturation ABG Base Excess ABG Hemoglobin ABG Oxyhemoglobin ABG Sodium ABG Potassium ABG Glucose Oxyhemoglobin Sodium Potassium Chloride Carbon Dioxide BUN Creatinine Glucose POC Glucose 114 H 160 H Calcium AST Total Protein Albumin Arterial Blood Glucose Phenytoin Allied health notes reviewed: nursing
--- NOTE | 2020-11-04 16:29 | Discharge Summary ---
Providers - Providers Date of Admission: 10/14/20 14:49 Date of discharge: 11/04/20 Attending physician: TERRY FORREST 10/14/20 14:49 Consult to Physician [CONS] Routine Comment: Consulting Provider: KATE BOSS Physician Instructions: Reason For Exam: Respiratory Failure on vent,status epilepticus 10/14/20 18:23 Consult to Dietitian/Nutrition [CONS] Routine Physician Instructions: Reason For Exam: Reason for Consult: Evaluate nutritional intake 10/14/20 18:24 Consult to Dietitian/Nutrition [CONS] Routine Physician Instructions: Reason For Exam: Reason for Consult: Write/Manage Tube Feeding 10/17/20 09:56 Consult to Dietitian/Nutrition [CONS] Routine Physician Instructions: Assess nutrtn needs, initiate, modify, manage TF Reason For Exam: Reason for Consult: Write/Manage Tube Feeding Reason for Consult: Write/Manage Tube Feeding 10/17/20 10:58 Consult to Physician [CONS] Urgent Comment: Consulting Provider: MIRELLA PARTIDA Physician Instructions: Reason For Exam: status epilepticus 10/21/20 13:19 Consult to Physician [CONS] Urgent Comment: Consulting Provider: MARIUM HARRIS Physician Instructions: Reason For Exam: Bowel obstruction ? Sigmoid Volvulus 10/26/20 13:38 Occupational Therapy Evaluate and Treat [CONS] Routine Comment: Reason For Exam: Debility Physical Therapy Evaluation and Treat [CONS] Routine Comment: Reason For Exam: Debility 10/28/20 07:40 Speech Therapy Evaluation and Treat [CONS] Routine Reason For Exam: eval for diet 11/01/20 12:48 Physical Therapy Evaluation and Treat [CONS] Routine Comment: Reason For Exam: debility Date of last referral: 11/01/20 Primary care physician: [facility] Hospitalization Condition: Critical Hospital course: Subjective Date of service: 11/04/20 Principal diagnosis: Ac hypoxemic & hypercapnic resp failure; Status epilepticus; HTNsive emerge Interval history: 65 YO Female with Obesity, HTN, presents to ED for evaluation. Patient is intubated and on ventilatory support at the time of my evaluation and is unable to provide history. Patient history is taken from EMS staff, ED staff. As per staff the patient was found down and unresponsive by her neighbor. Patient neighbor describe seizure-like activity. EMS was notified and upon arrival the patient was found to be in distress and actively seizing. Patient treated with 2 mg of Ativan which terminated the seizures. The patient was subsequently tra nsported to [facility] for further evaluation and care of the aforementioned symptoms. Patient was seen and evaluated in the emergency department. All lab and imaging studies reviewed. Patient found to have symptoms consistent with status epilepticus which was evidenced by recurrent seizures in the emergency department with concomitant decrease in pulse oximetry to 84% on room air. The patient was also found to have hypertensive emergency with a blood pressure of 223/143. The patient was deemed unable to protect her airway and at the time of admission and was having severe issues with seizures .Patient also found to have acute encephalopathy. Patient admitted to ICU due to increased risk of decompensation. Critical care team consulted in ED. No prior admission for review. No medication listed at time of admission for reconciliation. Patient was intubated in the emergency room for airway protection on the date of admission was weaned off and extubated on 10/25/2020 for airway protection Patient severely debilitated Needs [facility] facility for subacute rehab Patient lives alone and cannot take care of herself Assessment and Plan (1) Acute respiratory failure Current Visit: Yes Status: Acute Qualifiers: Respiratory failure complication: hypoxia Qualified Code(s): J96.01 - Acute respiratory failure with hypoxia Plan to address problem: And extubated and now stable Talking appropriately (2) Status epilepticus Current Visit: Yes Status: Acute Plan to address problem: Seizures resolved (3) Hypertensive emergency Current Visit: Yes Status: Acute Plan to address problem: Blood pressure controlled (4) Acute encephalopathy Current Visit: Yes Status: Acute Plan to address problem: CT head, neuro check, seizure precautions, aspiration precautions, (5) Leukocytosis Current Visit: Yes Status: Acute Plan to address problem: Resolved (6) DVT prophylaxis Current Visit: Yes Status: Acute Plan to address problem: SCD to bilateral lower extremities while in bed, prophylactic anticoagulation (7) Discharge planning issues Current Visit: Yes Status: Acute Plan to address problem: Patient to go to [facility] facility for subacute rehab Patient is severely debilitated Patient lives alone and cannot take care of herself Disposition: [place] - Discharge Diagnoses (1) Acute encephalopathy Status: Acute (2) Acute respiratory failure Status: Acute Qualifiers: Respiratory failure complication: hypoxia Qualified Code(s): J96.01 - Acute respiratory failure with hypoxia (3) Hypertensive emergency Status: Acute Core Measure Documentation - Palliative Care Palliative Care/ Comfort Measures: Not Applicable - Core Measures Any of the following diagnoses?: none Exam - Constitutional Vitals: Temp Pulse Resp BP Pulse Ox 98.1 F 75 20 145/79 95 11/04/20 11:52 11/04/20 11:52 11/04/20 11:52 11/04/20 11:52 11/04/20 11:52 General appearance: Present: no acute distress, well-nourished - EENT Eyes: Present: PERRL ENT: hearing intact, clear oral mucosa - Neck Neck: Present: supple, normal ROM - Respiratory Respiratory effort: normal Respiratory: bilateral: CTA - Cardiovascular Heart Sounds: Present: S1 & S2. Absent: rub, click - Extremities Extremities: pulses symmetrical, No edema Peripheral Pulses: within normal limits - Abdominal General gastrointestinal: Present: soft, non-tender, non-distended, normal bowel sounds Female genitourinary: Present: normal - Integumentary Integumentary: Present: clear, warm, dry - Musculoskeletal Musculoskeletal: gait normal, strength equal bilaterally - Psychiatric Psychiatric: appropriate mood/affect, intact judgment & insight - Neurologic Neurologic: CNII-XII intact, moves all extremities Plan Activity: no restrictions Weight Bearing Status: Weight Bear as Tolerated Diet: low salt Follow up with: PRIMARY CARE,MD [Primary Care Provider] - 7 Days Prescriptions: Min Oil/Petrolatum [Artificial Tears Ophth Oint] 1 applic OU Q4HR PRN #1 tube PRN Reason: Dry Eye(S) Phenytoin [Dilantin] 200 mg PO Q8HR #90 capsule.er levETIRAcetam [Keppra TAB] 1,500 mg PO BID #60 tablet Famotidine [Pepcid] 20 mg PO BID #60 tablet QUEtiapine [SEROquel] 100 mg PO QHS #30 tablet Lacosamide [Vimpat] 200 mg PO Q12HR #60 tablet
[2020-11-04 16:39] VITALS: BP 138/69
[2020-11-07 13:01] LABS: ABG PH 7.393 pH Units (7.350-7.450)
[2020-11-07 13:02] LABS: ABG Base Excess -3.7 mmol/L (-2.0-3.0); ABG HCO3 20.5 mmol/L (20.0-26.0); ABG Methemoglobin 0.3 % (0.0-1.5); ABG Oxygen Saturation 95.5 % (95.0-99.0); ABG PCO2 34.4 mm Hg; ABG PO2 79.6 mm Hg (80.0-90.0)
== END 2020-11-04 18:35 | DRG 207 ==
LOC: ED 12:56 → CC1 14:49 → 4A 10-27 18:22
PROVIDERS: ADMIT Internal Medicine; ATTEND Internal Medicine
PROC: 5A1955Z Respiratory Ventilation, Greater than 96 Consecutive Hours (ICD-10-PCS; principal; 2020-10-14)
PROC: 0BH17EZ Insertion of Endotracheal Airway into Trachea, Via Natural or Artificial Opening (ICD-10-PCS; 2020-10-14)
PROC: 4A033R1 Measurement of Arterial Saturation, Peripheral, Percutaneous Approach (ICD-10-PCS; 2020-10-14)
DX: J96.01 Acute respiratory failure with hypoxia (principal); G92 Toxic encephalopathy; I16.1 Hypertensive emergency; E87.1 Hypo-osmolality and hyponatremia; Z99.11 Dependence on respirator [ventilator] status; K56.609 Unspecified intestinal obstruction, unspecified as to partial versus complete obstruction; E87.0 Hyperosmolality and hypernatremia; K56.7 Ileus, unspecified; Z20.828 Contact with and (suspected) exposure to other viral communicable diseases; J96.02 Acute respiratory failure with hypercapnia; G40.901 Epilepsy, unspecified, not intractable, with status epilepticus; Z60.2 Problems related to living alone; I10 Essential (primary) hypertension; E66.01 Morbid (severe) obesity due to excess calories; R73.9 Hyperglycemia, unspecified; K59.81 Ogilvie syndrome; Z82.49 Family history of ischemic heart disease and other diseases of the circulatory system; Z79.899 Other long term (current) drug therapy; Z68.39 Body mass index [BMI] 39.0-39.9, adult; Z78.1 Physical restraint status
CPT/HCPCS: 36415; 36600; 70450; 70496; 70498; 71045; 72125; 74018; 74019; 74176; 80048; 80053; 80177; 80185; 80307; 80320; 81001; 82140; 82550; 82553; 82803; 82805; 82962; 84145; 84484; 85007; 85025; 85027; 85610; 85670; 85730; 86850; 86900; 86901; 87070; 87205; 90471; 93005; 94002; 94003; 94640; 94760; 95819; 96374; 96375; G0378; C9254; G0480; J0360; J0696; J1165; J1630; J1644; J1953; J2060; J2250; J2704; J2765; J3010; J3490; J7030; J7040; J7042; J7050; Q2009; Q9967; U0003